=== PATIENT | female | born 1975 | race Caucasian/White ===

== ENCOUNTER → 2016-08-22 | Outpatient (REF) | payer BC ==
[~2016-08-22] MED LIST: CIPR500T89 PO; D 10CAP PO; EFFE25TA8 PO; FLAG500T PO; HYDR12.55 PO; OXYC1TAB23 PO; PENT500C PO; PROBCAP18 PO; VITA10002 PO
[2016-08-22 18:52] LABS: ALBUMIN 3.2 GM/DL (3.2-5.2); ALBUMIN/GLOBULIN RATIO 0.82 (1.00-1.93); ALKALINE PHOSPHATASE 70 U/L (45-117); ALT/SGPT 19 U/L (12-78); ANION GAP 10 MEQ/L (8-16); AST/SGOT 13 U/L (15-37); BILIRUBIN,TOTAL 0.2 MG/DL (0.2-1.0); BLOOD UREA NITROGEN 8 MG/DL (7-18); CARBON DIOXIDE LEVEL 24 MEQ/L (21-32); CHLORIDE LEVEL 106 MEQ/L (98-107); GLOMERULAR FILTRATION RATE > 60.0 (>58); GLUCOSE, FASTING 82 MG/DL (70-105); POTASSIUM SERUM 4.4 MEQ/L (3.5-5.1); SODIUM LEVEL 140 MEQ/L (136-145); TOTAL PROTEIN 7.1 GM/DL (6.4-8.2)
[2016-08-22 19:49] LABS: VITAMIN B12 LEVEL 250 PG/ML (247-911)
== END ==
LOC: M LAB REF 16:42
PROVIDERS: ATTEND Internal Medicine Gastroenterology
DX: K50.00 Crohn's disease of small intestine without complications (principal); K60.3 Anal fistula; R19.7 Diarrhea, unspecified

== ENCOUNTER → 2016-08-22 | Outpatient (REF) | payer BC ==
[2016-08-22 18:04] LABS: BASO # 0.1 K/mm3 (0.0-0.2); BASO % 0.8 % (0.0-1.0); EOS # 0.1 K/mm3 (0.0-0.50); LARGE UNSTAINED CELL # 0.1 K/mm3 (0.0-0.4); LARGE UNSTAINED CELL % 0.9 % (0.0-4.0); LYMPH # 2.5 K/mm3 (1.5-4.5); LYMPH % 21.8 % (24.0-44.0); MEAN CORPUSCULAR HEMOGLOBIN 26.1 pg (27.0-33.0); MEAN CORPUSCULAR HGB CONC 32.4 g/dl (32.0-36.5); MEAN CORPUSCULAR VOLUME 80.7 fl (80.0-96.0); MONO # 0.4 K/mm3 (0.0-0.8); MONO % 3.9 % (0.0-5.0); NEUTROPHILS # 7.9 K/mm3 (1.8-7.7); NEUTROPHILS % 71.7 % (36.0-66.0); PLATELET COUNT, AUTOMATED 430 k/mm3 (150-450); RED CELL DISTRIBUTION WIDTH 15.1 % (11.5-14.5)
[2016-08-22 18:53] LABS: ALBUMIN 3.2 GM/DL (3.2-5.2); ALBUMIN/GLOBULIN RATIO 0.76 (1.00-1.93); ALKALINE PHOSPHATASE 69 U/L (45-117); ALT/SGPT 20 U/L (12-78); ANION GAP 10 MEQ/L (8-16); AST/SGOT 13 U/L (15-37); BILIRUBIN,TOTAL 0.2 MG/DL (0.2-1.0); BLOOD UREA NITROGEN 8 MG/DL (7-18); CALCIUM LEVEL 8.8 MG/DL (8.5-10.1); CARBON DIOXIDE LEVEL 24 MEQ/L (21-32); CHLORIDE LEVEL 106 MEQ/L (98-107); CREATININE FOR GFR 0.63 MG/DL (0.55-1.02); GLOMERULAR FILTRATION RATE > 60.0 (>58); GLUCOSE, FASTING 82 MG/DL (70-105); POTASSIUM SERUM 4.3 MEQ/L (3.5-5.1); SODIUM LEVEL 140 MEQ/L (136-145); TOTAL PROTEIN 7.4 GM/DL (6.4-8.2)
== END ==
LOC: M LAB REF 16:58
PROVIDERS: ATTEND Internal Medicine Infectious Disease
DX: K50.813 Crohn's disease of both small and large intestine with fistula (principal); L02.31 Cutaneous abscess of buttock

== ENCOUNTER → 2016-10-05 | Outpatient (REF) | payer BC | LOC: M LAB REF 13:42 | PROVIDERS: ATTEND Internal Medicine Pulmonary Disease | DX: K50.813 Crohn's disease of both small and large intestine with fistula (principal); R19.7 Diarrhea, unspecified ==

== ENCOUNTER → 2017-01-26 | Outpatient (REF) | payer BC ==
[2017-01-26 18:23] LABS: MEAN CORPUSCULAR HEMOGLOBIN 27.3 pg (27.0-33.0); MEAN CORPUSCULAR HGB CONC 33.2 g/dl (32.0-36.5); MEAN CORPUSCULAR VOLUME 82.1 fl (80.0-96.0); RED CELL DISTRIBUTION WIDTH 14.6 % (11.5-14.5); WHITE BLOOD COUNT 10.5 K/mm3 (4.0-10.0)
[2017-01-26 18:59] LABS: ALBUMIN 3.3 GM/DL (3.2-5.2); ALBUMIN/GLOBULIN RATIO 0.79 (1.00-1.93); ALKALINE PHOSPHATASE 62 U/L (45-117); ALT/SGPT 26 U/L (12-78); ANION GAP 9 MEQ/L (8-16); AST/SGOT 15 U/L (15-37); BILIRUBIN,TOTAL 0.3 MG/DL (0.2-1.0); BLOOD UREA NITROGEN 7 MG/DL (7-18); CARBON DIOXIDE LEVEL 27 MEQ/L (21-32); CHLORIDE LEVEL 106 MEQ/L (98-107); CREATININE FOR GFR 0.57 MG/DL (0.55-1.02); GLOMERULAR FILTRATION RATE > 60.0 (>58); GLUCOSE, FASTING 95 MG/DL (70-105); POTASSIUM SERUM 4.3 MEQ/L (3.5-5.1); SODIUM LEVEL 142 MEQ/L (136-145); TOTAL PROTEIN 7.5 GM/DL (6.4-8.2)
[2017-01-26 19:22] LABS: VITAMIN B12 LEVEL 258 PG/ML (247-911)
== END ==
LOC: M LAB REF 17:12
PROVIDERS: ATTEND Internal Medicine Gastroenterology
DX: K50.00 Crohn's disease of small intestine without complications (principal); C44.590 Other specified malignant neoplasm of anal skin; Z80.0 Family history of malignant neoplasm of digestive organs; E55.9 Vitamin D deficiency, unspecified

== ENCOUNTER → 2017-05-05 | Outpatient (REF) | payer BC ==
[~2017-05-05] MED LIST changes: +CIPR-249 PO; -CIPR500T89 PO
[2017-05-08 10:47] LABS: FOLATE 11.9 NG/ML
== END ==
LOC: M LAB REF 16:18
PROVIDERS: ATTEND Internal Medicine
DX: D51.9 Vitamin B12 deficiency anemia, unspecified (principal)

== ENCOUNTER → 2017-10-06 | Outpatient (REF) | payer BC | LOC: M SFHCPLAZ 10:19 | DX: R19.7 Diarrhea, unspecified (principal) ==

== ENCOUNTER → 2017-10-06 | Outpatient (REF) | payer BC ==
[2017-10-06 15:40] LABS: BASO % 0.2 % (0.0-1.0); EOS # 0.1 10^3/uL (0.0-0.50); EOS % 0.9 % (0.0-3.0); HEMATOCRIT 37.9 % (36.0-47.0); HEMOGLOBIN 12.2 g/dl (12.0-16.0); IMMATURE GRANULOCYTE % 0.4 % (0-3.0); LYMPH # 3.1 10^3/uL (1.5-4.5); LYMPH % 30.6 % (24.0-44.0); MEAN CORPUSCULAR HEMOGLOBIN 26.9 pg (27.0-33.0); MEAN CORPUSCULAR HGB CONC 32.2 g/dl (32.0-36.5); MEAN CORPUSCULAR VOLUME 83.7 fl (80.0-96.0); MONO # 0.5 10^3/uL (0.0-0.8); NEUTROPHILS # 6.5 10^3/uL (1.8-7.7); NEUTROPHILS % 62.9 % (36.0-66.0); PLATELET COUNT, AUTOMATED 410 10^3/uL (150-450); RED BLOOD COUNT 4.53 10^6/uL (4.00-5.40); RED CELL DISTRIBUTION WIDTH 14.3 % (11.5-14.5); WHITE BLOOD COUNT 10.2 10^3/uL (4.0-10.0)
[2017-10-06 16:24] LABS: ALBUMIN 3.4 GM/DL (3.2-5.2); ALBUMIN/GLOBULIN RATIO 0.83 (1.00-1.93); ALKALINE PHOSPHATASE 59 U/L (45-117); ALT/SGPT 23 U/L (12-78); ANION GAP 9 MEQ/L (8-16); AST/SGOT 21 U/L (7-37); BILIRUBIN,TOTAL 0.2 MG/DL (0.2-1.0); BLOOD UREA NITROGEN 6 MG/DL (7-18); CALCIUM LEVEL 8.5 MG/DL (8.5-10.1); CARBON DIOXIDE LEVEL 24 MEQ/L (21-32); CHLORIDE LEVEL 109 MEQ/L (98-107); CREATININE FOR GFR 0.56 MG/DL (0.55-1.30); GLOMERULAR FILTRATION RATE > 60.0 (>58); GLUCOSE, FASTING 90 MG/DL (70-100); MAGNESIUM LEVEL 1.7 MG/DL (1.8-2.4); POTASSIUM SERUM 3.8 MEQ/L (3.5-5.1); SODIUM LEVEL 142 MEQ/L (136-145); TOTAL PROTEIN 7.5 GM/DL (6.4-8.2)
== END ==
LOC: M LAB REF 15:19
DX: A04.72 Enterocolitis due to Clostridium difficile, not specified as recurrent (principal)
CPT/HCPCS: 83735

== ENCOUNTER 2017-10-25 15:48 | Emergency (ER) | payer BC ==
[2017-10-25 16:42] LABS: BASO % 0.4 % (0.0-1.0); EOS # 0.1 10^3/uL (0.0-0.50); EOS % 0.8 % (0.0-3.0); HEMOGLOBIN 11.9 g/dl (12.0-16.0); IMMATURE GRANULOCYTE % 0.5 % (0-3.0); LYMPH % 28.7 % (24.0-44.0); MEAN CORPUSCULAR HEMOGLOBIN 26.9 pg (27.0-33.0); MEAN CORPUSCULAR HGB CONC 32.2 g/dl (32.0-36.5); MEAN CORPUSCULAR VOLUME 83.5 fl (80.0-96.0); MONO # 0.6 10^3/uL (0.0-0.8); MONO % 5.9 % (0.0-5.0); NEUTROPHILS # 6.7 10^3/uL (1.8-7.7); NEUTROPHILS % 63.7 % (36.0-66.0); PLATELET COUNT, AUTOMATED 379 10^3/uL (150-450); RED BLOOD COUNT 4.43 10^6/uL (4.00-5.40); WHITE BLOOD COUNT 10.5 10^3/uL (4.0-10.0)
[2017-10-25] MEDS: KETOROLAC 30 MG/ML VIAL (J1885) IV (16:43)
[2017-10-25] MEDS: NS 1,000 ML IV (16:43)
[2017-10-25] MEDS: GASTROGRAFIN SOLUTION 30ML (Q9963) PO ×2 (16:49→17:22)
[2017-10-25 17:05] LABS: ALBUMIN 3.4 GM/DL (3.2-5.2); ALBUMIN/GLOBULIN RATIO 0.81 (1.00-1.93); ALKALINE PHOSPHATASE 63 U/L (45-117); ALT/SGPT 28 U/L (12-78); ANION GAP 10 MEQ/L (8-16); AST/SGOT 20 U/L (7-37); BILIRUBIN,DIRECT < 0.1 MG/DL (0.0-0.2); BILIRUBIN,TOTAL 0.3 MG/DL (0.2-1.0); BLOOD UREA NITROGEN 7 MG/DL (7-18); CALCIUM LEVEL 8.6 MG/DL (8.5-10.1); CARBON DIOXIDE LEVEL 23 MEQ/L (21-32); CHLORIDE LEVEL 107 MEQ/L (98-107); CREATININE FOR GFR 0.54 MG/DL (0.55-1.30); GLOMERULAR FILTRATION RATE > 60.0 (>58); GLUCOSE, FASTING 95 MG/DL (70-100); LIPASE 256 U/L (73-393); POTASSIUM SERUM 3.7 MEQ/L (3.5-5.1); SODIUM LEVEL 140 MEQ/L (136-145); TOTAL PROTEIN 7.6 GM/DL (6.4-8.2)
[2017-10-25 17:14] LABS: LACTIC ACID SEPSIS PROTOCOL 2.3 MMOL/L (0.4-2.0)
[2017-10-25] MEDS ORDERED: ISOVUE-370 76% 100ML VIAL (Q9967) As Ordered (17:30)
== END 2017-10-25 18:56 | disposition home or self-care (01) ==
LOC: M ED 15:48
DX: K50.90 Crohn's disease, unspecified, without complications (principal); R11.0 Nausea; Z86.19 Personal history of other infectious and parasitic diseases; Z90.49 Acquired absence of other specified parts of digestive tract; Z88.8 Allergy status to other drugs, medicaments and biological substances; Z79.899 Other long term (current) drug therapy
CPT/HCPCS: Q9963

== ENCOUNTER 2018-02-01 07:04 | Emergency (ER) | payer BC ==
[2018-02-01] MEDS: NS 1,000 ML IV ×2 (07:38→08:30)
[2018-02-01 08:10] LABS: ALBUMIN 3.1 GM/DL (3.2-5.2); ALBUMIN/GLOBULIN RATIO 0.67 (1.00-1.93); ALKALINE PHOSPHATASE 60 U/L (45-117); ALT/SGPT 34 U/L (12-78); ANION GAP 12 MEQ/L (8-16); AST/SGOT 28 U/L (7-37); BILIRUBIN,TOTAL 0.2 MG/DL (0.2-1.0); BLOOD UREA NITROGEN 11 MG/DL (7-18); CALCIUM LEVEL 8.4 MG/DL (8.5-10.1); CARBON DIOXIDE LEVEL 23 MEQ/L (21-32); CHLORIDE LEVEL 105 MEQ/L (98-107); CPK CREATINE PHOSPHOKINASE 117 U/L (26-192); CREATININE FOR GFR 0.64 MG/DL (0.55-1.30); GLOMERULAR FILTRATION RATE > 60.0 (>58); GLUCOSE, FASTING 110 MG/DL (70-100); MAGNESIUM LEVEL 1.8 MG/DL (1.8-2.4); SODIUM LEVEL 140 MEQ/L (136-145); TOTAL PROTEIN 7.7 GM/DL (6.4-8.2)
[2018-02-01 08:20] LABS: HEMATOCRIT 38.8 % (36.0-47.0); HEMOGLOBIN 12.4 g/dl (12.0-15.5); MEAN CORPUSCULAR HEMOGLOBIN 26.6 pg (27.0-33.0); MEAN CORPUSCULAR VOLUME 83.1 fl (80.0-96.0); PLATELET COUNT, AUTOMATED 380 10^3/uL (150-450); RED BLOOD COUNT 4.67 10^6/uL (4.00-5.40); RED CELL DISTRIBUTION WIDTH 14.3 % (11.5-14.5); WHITE BLOOD COUNT 9.5 10^3/uL (4.0-10.0)
== END 2018-02-01 09:55 | disposition home or self-care (01) ==
LOC: M ED 07:04
DX: M62.838 Other muscle spasm (principal); R19.7 Diarrhea, unspecified; K50.919 Crohn's disease, unspecified, with unspecified complications; Z90.49 Acquired absence of other specified parts of digestive tract; Z79.899 Other long term (current) drug therapy; Z88.8 Allergy status to other drugs, medicaments and biological substances
CPT/HCPCS: 82550

== ENCOUNTER → 2018-08-21 | Outpatient (REF) | payer BC ==
[~2018-08-21] MED LIST changes: +CIMZ200K IM
[2018-08-21 18:06] LABS: HEMATOCRIT 38.3 % (36.0-47.0); HEMOGLOBIN 12.1 g/dl (12.0-15.5); MEAN CORPUSCULAR HEMOGLOBIN 26.1 pg (27.0-33.0); MEAN CORPUSCULAR HGB CONC 31.6 g/dl (32.0-36.5); MEAN CORPUSCULAR VOLUME 82.7 fl (80.0-96.0); PLATELET COUNT, AUTOMATED 433 10^3/uL (150-450); RED BLOOD COUNT 4.63 10^6/uL (4.00-5.40); WHITE BLOOD COUNT 9.6 10^3/uL (4.0-10.0)
[2018-08-21 18:29] LABS: ALBUMIN 3.2 GM/DL (3.2-5.2); ALT/SGPT 28 U/L (12-78); BILIRUBIN,TOTAL 0.3 MG/DL (0.2-1.0); BLOOD UREA NITROGEN 8 MG/DL (7-18); CALCIUM LEVEL 8.7 MG/DL (8.5-10.1); CARBON DIOXIDE LEVEL 23 MEQ/L (21-32); CHLORIDE LEVEL 107 MEQ/L (98-107); CREATININE FOR GFR 0.54 MG/DL (0.55-1.30); GLOMERULAR FILTRATION RATE > 60.0 (>58); GLUCOSE, FASTING 93 MG/DL (70-100); MAGNESIUM LEVEL 1.7 MG/DL (1.8-2.4); POTASSIUM SERUM 4.3 MEQ/L (3.5-5.1); SODIUM LEVEL 140 MEQ/L (136-145); TOTAL PROTEIN 7.3 GM/DL (6.4-8.2)
[2018-08-21 18:38] LABS: TOTAL 25(OH) VITAMIN D 16.6 NG/ML (30.0-100.0); VITAMIN B12 LEVEL 254 PG/ML (247-911)
== END ==
LOC: M LAB REF 17:01
PROVIDERS: ATTEND Internal Medicine Gastroenterology
DX: K50.00 Crohn's disease of small intestine without complications (principal); R10.84 Generalized abdominal pain; R19.7 Diarrhea, unspecified; K60.3 Anal fistula

== ENCOUNTER 2018-10-11 11:54 | Inpatient (IN) | payer BC ==
[~2018-10-11] VITALS: Ht 170.2 cm; Wt 137.7 kg
[2018-10-11] MEDS ORDERED: ISOVUE-370 76% 100ML VIAL (Q9967) As Ordered ONE (12:11)
[2018-10-11] MEDS ORDERED: NS 1,000 ML IV ONE (12:15)
[2018-10-11 12:27] LABS: BASO # 0.1 10^3/uL (0.0-0.2); BASO % 0.3 % (0.0-1.0); EOS # 0.1 10^3/uL (0.0-0.50); EOS % 0.6 % (0.0-3.0); HEMATOCRIT 43.7 % (36.0-47.0); HEMOGLOBIN 13.6 g/dl (12.0-15.5); LYMPH # 3.4 10^3/uL (1.5-4.5); LYMPH % 21.9 % (24.0-44.0); MEAN CORPUSCULAR HEMOGLOBIN 25.9 pg (27.0-33.0); MEAN CORPUSCULAR HGB CONC 31.1 g/dl (32.0-36.5); MEAN CORPUSCULAR VOLUME 83.2 fl (80.0-96.0); MONO # 0.8 10^3/uL (0.0-0.8); MONO % 4.9 % (0.0-5.0); NEUTROPHILS # 11.2 10^3/uL (1.8-7.7); NEUTROPHILS % 71.9 % (36.0-66.0); PLATELET COUNT, AUTOMATED 418 10^3/uL (150-450); RED BLOOD COUNT 5.25 10^6/uL (4.00-5.40); WHITE BLOOD COUNT 15.6 10^3/uL (4.0-10.0)
[2018-10-11] MEDS: MORPHINE 2 MG/ML 1ML SYRINGE (J2270) IV PRN ×2 (12:28→13:16)
[2018-10-11] MEDS ORDERED: ONDANSETRON 4MG/2ML VIAL (J2405) IV ONE (12:30)
[2018-10-11 12:51] LABS: ALBUMIN 3.4 GM/DL (3.2-5.2); ALT/SGPT 23 U/L (12-78); BILIRUBIN,DIRECT 0.1 MG/DL (0.0-0.2); BILIRUBIN,TOTAL 0.4 MG/DL (0.2-1.0); BLOOD UREA NITROGEN 10 MG/DL (7-18); CALCIUM LEVEL 9.3 MG/DL (8.5-10.1); CARBON DIOXIDE LEVEL 28 MEQ/L (21-32); CHLORIDE LEVEL 100 MEQ/L (98-107); CREATININE FOR GFR 0.72 MG/DL (0.55-1.30); GLOMERULAR FILTRATION RATE > 60.0 (>58); GLUCOSE, FASTING 103 MG/DL (70-100); LIPASE 212 U/L (73-393); POTASSIUM SERUM 3.8 MEQ/L (3.5-5.1); SODIUM LEVEL 137 MEQ/L (136-145); TOTAL PROTEIN 8.7 GM/DL (6.4-8.2)
--- NOTE | 2018-10-11 13:42 | REP ---
CT ABDOMEN AND PELVIS WITH IV CONTRAST: TECHNIQUE: Axial contrast enhanced images from the lung bases to the pubic symphysis using 100 mL Isovue 370 intravenous contrast material with multiplanar reformations. COMPARISON: 10/25/2017 Visualized lung bases demonstrate no evidence of acute infiltrate. The liver demonstrates no mass. The spleen, adrenals, pancreas and kidneys are unremarkable. The patient has had a prior cholecystectomy. There is no biliary dilatation. There is no abdominal aortic aneurysm. No significant adenopathy is seen. There is no free air or free fluid. However, there is thickening of the distal end of the ileum, which has increased since prior study of 10/25/2017. There is also increased surrounding inflammatory change in the mesenteric fat. There is moderate dilatation of distal loops of ileum. Findings are most compatible with a high-grade partial obstruction at the distal end of the ileum. Small amount of material is seen throughout a relatively nondistended colon. In the pelvis, a right ovarian cyst measures about 3 cm in diameter. A cyst in the region of the cervix is unchanged. Urinary bladder is unremarkable. IMPRESSION: Increased thickening of the distal end of the ileum with increased inflammatory changes in the surrounding fat. Moderate dilatation of the distal ileum. Findings suggest high-grade partial obstruction at the distal end of the ileum, at its junction with the right colon. No free air, free fluid or abscess. Electronically Signed by Shemar Oseguera MD 10/11/2018 05:11 P
[2018-10-11] MEDS ORDERED: CEPACOL LOZENGE PO PRN (13:45)
[2018-10-11] MEDS ORDERED: CHLORASEPTIC SPRAY MT PRN (14:15)
[2018-10-11] MEDS ORDERED: MORPHINE 2 MG/ML 1ML SYRINGE (J2270) IV PRN (14:30)
[2018-10-11] MEDS ORDERED: BUDE3CAP PO (14:41)
[2018-10-11] MEDS ORDERED: CHLO125TA PO (14:41)
[2018-10-11] MEDS ORDERED: ONDANSETRON 4MG/2ML VIAL (J2405) IV PRN (17:45)
[2018-10-11] MEDS ORDERED: MORPHINE 4 MG/ML 1ML VIAL/SYRINGE (J2270) IV PRN ×2 (17:45)
[2018-10-11] MEDS ORDERED: HYDROCORTISONE 100 MG/2 ML VIAL (J1720) IV ONE (17:45)
[2018-10-11 18:00] VITALS: BP 162/88
[2018-10-11] MEDS: LR 1,000 ML IV SCH (18:06)
[2018-10-11 22:00] VITALS: BP 168/88
--- NOTE | 2018-10-11 22:30 | HPE ---
DATE OF ADMISSION: 10/11/2018 ADMISSION DIAGNOSIS Small bowel obstruction secondary to Crohn's exacerbation. 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 The patient has a history of Crohn disease dating back many years. She did have a terminal ileal resection back in 2002. She has for quite some time remained on anti TNF medications. She has had recurring problems with perirectal fistulas and reports that even now she has a seton suture in the perineum. She remains on Cimzia which is certolizumab pegol intradermally every 3 weeks. Her last dose was about 10 days ago. She reports that she has been eating okay. She has tried to change her diet a little bit to assist with weight loss and has been taking some slightly more high-fiber foods. Over the last day or two she has noticed a little bit of right lower quadrant discomfort. This is often accompanied with a slight bloated sensation. This morning, she has noticed the onset of severe pain in the right lower quadrant with sensation of significant distension. She did not have any nausea or vomiting. She presented to the emergency department and underwent a CT scan of the abdomen and pelvis. This revealed some mildly dilated distal small bowel with an evident ileocolonic anastomosis in the right lower quadrant. There was some definite thickening of the terminal ileum just proximal to the anastomosis with some angulation in this area. Her symptoms and findings were felt to be consistent with an intestinal obstruction secondary to an exacerbation of her Crohn disease. A nasogastric tube was placed in the emergency department and I was consulted. She is now admitted for management. She does report that her discomfort does seem to have diminished somewhat, although she has received some analgesics in the emergency department. ALLERGIES: The patient reports that CARBAMAZEPINE leads to a rash. CURRENT MEDICATIONS: Include - certolizumab 400 mg injected every 3 weeks - she uses budesonide 3 mg capsules by mouth as needed and her last medicine was probably last week. - she takes chlorthalidone 12.5 mg as needed for edema. PAST SURGICAL HISTORY The patient has undergone several surgical procedures under general anesthesia for perirectal fistulas in the last 2 years. Back in 2002 she had undergone a bowel resection with an ileocolonic anastomosis. She has had her appendix removed. She did have a laparoscopic cholecystectomy at age 18. PAST MEDICAL HISTORY: Primarily significant for her Crohn disease. She does have a history of obesity. She has some borderline sleep apnea for which she does use a C-PAP device intermittently. She also has had multiple episodes of renal stones. She reports having had one episode of Clostridium difficile colitis some years ago when she was on immunosuppressive therapies. FAMILY HISTORY: Noncontributory. SOCIAL HISTORY The patient is a nonsmoker. She is . 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 She is accompanied to the emergency department by her spouse. Her primary physician is Dr. Josias Perez and her field artillery crewmember is Dr. Ayla Tucker in [place]. REVIEW OF SYSTEMS The patient denies any heart or significant lung problems. She has no history of diabetes or thyroid disease. There are no bone or joint issues. She has no history of DVT or pulmonary embolus. Her other history is largely as noted in the history of present illness. PHYSICAL EXAMINATION The patient is a very pleasant alert woman lying quietly on the ER stretcher. She has a nasogastric tube in place. Sclerae are anicteric. Skin: Is warm and dry. Mucous membranes are moist. Neck is supple. Heart: Exam shows a regular rate and rhythm. The lungs are clear bilaterally. The abdomen is obese. She has a midline scar beginning slightly above the umbilicus and extending approximately 18-20 cm. The abdomen is fairly quiet, but there are a few faint bowel sounds here and there. On percussion there is no tympany to percussion. There is some mild tenderness to percussion in the right lower quadrant. On palpation, again there is some mild direct tenderness in the right lower quadrant. No masses appreciated and there was no guarding or rebound. No hernias are evident. She has palpable dorsalis pedis pulses with no peripheral edema. She has palpable radial pulses. LABORATORY STUDIES Show a white count of 16,000 with a hemoglobin of 14, hematocrit of 44 and platelet count of 418,000. Differential count shows 72% neutrophils, 22% lymphocytes and 5% monocytes. Chemistry profile shows normal electrolytes with a BUN of 10, creatinine 0.7 and a glucose 103. Her lactic acid was 2.0. Liver function tests are normal. Her lipase is 212. Abdominal CT scan images I reviewed personally and reviewed the radiologist report. IMPRESSION 1. Small intestinal obstruction secondary to Crohn disease exacerbation. 2. Obesity. 3. Sleep apnea. 4. History of perirectal fistulas. 5. History of multiple renal stones. PLAN: The patient reports that she is feeling somewhat better. She has not had any return of bowel function with flatus or bowel movement since arriving at the emergency department. The patient will continue with the nasogastric tube to low intermittent suction for now. We will continue with some maintenance IV fluid of Ringer's lactate at 100 cc/hour. I will start her on some hydrocortisone 50 mg IV every 8 hours. We will not start antibiotics at this time. She will be provided with analgesics as necessary and orders were written for morphine as needed. She will be allowed a few ice chips as necessary just for comfort. She will be encouraged to be up out of bed. Hopefully she will respond readily with resolution of her intestinal obstruction and she can then reconnect with Dr. Cristobal of gastroenterology for further recommendations. She certainly does not seem to require any sort of urgent surgical intervention at this time.
[2018-10-12] MEDS: HYDROCORTISONE 100 MG/2 ML VIAL (J1720) IV SCH ×2 (01:17→10:39)
[2018-10-12 02:00] VITALS: BP 145/82
[2018-10-12] MEDS: LR 1,000 ML IV SCH (03:31)
[2018-10-12 06:00] VITALS: BP 116/66
[2018-10-12 10:00] VITALS: BP 137/88
== END 2018-10-12 11:38 | disposition home or self-care (01) | DRG 245 ==
LOC: M ED 11:54 → M ED INP 17:31 → M MS5PR 18:35
PROVIDERS: ADMIT Surgery; ATTEND Surgery
DX: K50.012 Crohn's disease of small intestine with intestinal obstruction (principal); Z68.42 Body mass index [BMI] 45.0-49.9, adult; E66.9 Obesity, unspecified; Z88.8 Allergy status to other drugs, medicaments and biological substances; G47.30 Sleep apnea, unspecified

== ENCOUNTER → 2019-02-18 | Outpatient (REF) | payer BC ==
[~2019-02-18] MED LIST changes: +BUDE3CAP PO; +CHLO125TA PO; +CYAN100049 PO; -VITA10002 PO
[2019-02-18 13:34] LABS: HEMATOCRIT 38.6 % (36.0-47.0); HEMOGLOBIN 11.5 g/dl (12.0-15.5); MEAN CORPUSCULAR HEMOGLOBIN 26.6 pg (27.0-33.0); MEAN CORPUSCULAR HGB CONC 29.8 g/dl (32.0-36.5); MEAN CORPUSCULAR VOLUME 89.4 fl (80.0-96.0); PLATELET COUNT, AUTOMATED 452 10^3/uL (150-450); RED BLOOD COUNT 4.32 10^6/uL (4.00-5.40); WHITE BLOOD COUNT 12.1 10^3/uL (4.0-10.0)
[2019-02-18 14:00] LABS: ALBUMIN 3.3 GM/DL (3.2-5.2); ALT/SGPT 29 U/L (12-78); BILIRUBIN,DIRECT < 0.1 MG/DL (0.0-0.2); BILIRUBIN,TOTAL 0.5 MG/DL (0.2-1.0); TOTAL PROTEIN 7.5 GM/DL (6.4-8.2)
== END ==
LOC: M LAB REF 12:48
PROVIDERS: ATTEND Internal Medicine Gastroenterology
DX: K50.00 Crohn's disease of small intestine without complications (principal); K56.699 Other intestinal obstruction unspecified as to partial versus complete obstruction; R10.84 Generalized abdominal pain; R19.7 Diarrhea, unspecified; Z80.0 Family history of malignant neoplasm of digestive organs

== ENCOUNTER 2019-03-21 17:13 | Emergency (ER) | payer BC ==
[~2019-03-21] VITALS: Ht 167.6 cm; Wt 137.3 kg
[2019-03-21] MEDS ORDERED: NS 1,000 ML IV SCH (17:18)
[2019-03-21] MEDS ORDERED: ONDANSETRON 4MG/2ML VIAL (J2405) IV ONE (17:30)
[2019-03-21] MEDS ORDERED: ISOVUE-370 76% 100ML VIAL (Q9967) As Ordered ONE (17:41)
[2019-03-21 17:42] LABS: BASO % 0.1 % (0.0-1.0); EOS # 0.1 10^3/uL (0.0-0.50); EOS % 0.8 % (0.0-3.0); HEMOGLOBIN 12.9 g/dl (12.0-15.5); LYMPH # 2.4 10^3/uL (1.5-4.5); LYMPH % 30.6 % (24.0-44.0); MEAN CORPUSCULAR HEMOGLOBIN 29.6 pg (27.0-33.0); MEAN CORPUSCULAR HGB CONC 31.5 g/dl (32.0-36.5); MONO # 0.4 10^3/uL (0.0-0.8); MONO % 5.2 % (0.0-5.0); NEUTROPHILS % 62.9 % (36.0-66.0); PLATELET COUNT, AUTOMATED 356 10^3/uL (150-450); RED BLOOD COUNT 4.36 10^6/uL (4.00-5.40); WHITE BLOOD COUNT 7.9 10^3/uL (4.0-10.0)
[2019-03-21] MEDS: MORPHINE 4 MG/ML 1ML VIAL/SYRINGE (J2270) IV PRN ×2 (17:52→19:01)
[2019-03-21 18:17] LABS: ALBUMIN 3.3 GM/DL (3.2-5.2); ALT/SGPT 44 U/L (12-78); BILIRUBIN,DIRECT < 0.1 MG/DL (0.0-0.2); BILIRUBIN,TOTAL 1.1 MG/DL (0.2-1.0); BLOOD UREA NITROGEN 7 MG/DL (7-18); CALCIUM LEVEL 9.2 MG/DL (8.5-10.1); CARBON DIOXIDE LEVEL 26 MEQ/L (21-32); CHLORIDE LEVEL 107 MEQ/L (98-107); CREATININE FOR GFR 0.62 MG/DL (0.55-1.30); GLOMERULAR FILTRATION RATE > 60.0 (>58); GLUCOSE, FASTING 105 MG/DL (70-100); LIPASE 210 U/L (73-393); POTASSIUM SERUM 5.6 MEQ/L (3.5-5.1); SODIUM LEVEL 138 MEQ/L (136-145)
[2019-03-21] MEDS ORDERED: HYDROCORTISONE 100 MG/2 ML VIAL (J1720) IV ONE (19:15)
[2019-03-21] MEDS ORDERED: MERC50TA2 PO (19:28)
[2019-03-21] MEDS ORDERED: VITA500045 PO (19:28)
[2019-03-21] MEDS ORDERED: PRED5TA PO (19:28)
--- NOTE | 2019-03-21 19:35 | REPVR ---
EXAM: CT Abdomen and Pelvis With Contrast EXAM DATE/TIME: 03/21/2019 5:25 PM CLINICAL HISTORY: 43 years old, female; Abdominal pain; Generalized; Additional info: Abd pain crohns ? obstruction TECHNIQUE: Imaging protocol: Axial computed tomography images of the abdomen and pelvis with intravenous contrast. Coronal and sagittal reformatted images were created and reviewed. Radiation optimization: All CT scans at this facility use at least one of these dose optimization techniques: automated exposure control; mA and/or kV adjustment per patient size (includes targeted exams where dose is matched to clinical indication); or iterative reconstruction. Contrast material: ISOVUE 370;Contrast volume: 100 ml;Contrast route: IV; COMPARISON: CT ABD/PEL W/IV CONTRAST ONLY 10/11/2018 12:40 PM FINDINGS: Liver: There is hypodense fatty infiltration of the liver. The liver measures 23.8 cm in length, consistent with hepatomegaly. Gallbladder and bile ducts: Surgical clips are identified within the gallbladder fossa, compatible with cholecystectomy. Pancreas: Unremarkable. No ductal dilation. Spleen: The spleen measures 12.6 cm in length, borderline for splenomegaly. No splenic mass. Adrenals: No mass. Kidneys and ureters: Unremarkable as visualized. No hydronephrosis. Stomach and bowel: Colonic diverticula are identified, without acute inflammatory stranding of the adjacent mesentery. Stable postoperative changes are identified at the ileocecal junction. There is significant wall thickening of the distal ileum with distension, concerning for obstruction. Stable stranding/fluid is seen within the adjacent fat, which is likely infectious, inflammatory, or ischemic. Appendix: The appendix is not visualized. Intraperitoneal space: No free air. Vasculature: No abdominal aortic aneurysm. Lymph nodes: Nonspecific mildly enlarged inguinal lymph nodes are identified. No significant retroperitoneal or intrapelvic lymphadenopathy. Bladder: Unremarkable as visualized. Reproductive: A stable cystic collection of fluid is again visualized at the level of the cervix, currently measuring 2.2 cm in diameter. There is mild endometrial thickening or fluid within the endometrial canal. There is a 2.3 cm hypodense right ovarian cyst, which has decreased in size. Bones/joints: Hypertrophic degenerative changes are noted within the spine. Right L5 spondylolysis again visualized. Soft tissues: There is a small paraumbilical herniation of fat. IMPRESSION: 1. Stable postoperative changes are identified at the ileocecal junction. There is significant wall thickening of the distal ileum with distension, concerning for obstruction. Stable stranding/fluid is seen within the adjacent fat, which is likely infectious, inflammatory, or ischemic. 2. There is hypodense fatty infiltration of the liver. Hepatomegaly. 3. Borderline splenomegaly. 4. A stable cystic collection of fluid is again visualized at the level of the cervix. There is mild endometrial thickening or fluid within the endometrial canal. These findings can be further evaluated with ultrasound. 5. Diverticulosis. 6. There is a 2.3 cm right ovarian cyst, which has decreased in size. 7. Additional findings described above. Electronically signed by: Stewart Fields On 03/21/2019 19:34:56 PM
[2019-03-21] MEDS ORDERED: MORPHINE 4 MG/ML 1ML VIAL/SYRINGE (J2270) IV PRN (20:45)
[2019-03-21 22:00] VITALS: BP 146/79
== END 2019-03-21 22:13 | disposition short-term general hospital (02) ==
LOC: M ED 17:13
DX: K50.90 Crohn's disease, unspecified, without complications (principal); Z79.52 Long term (current) use of systemic steroids; Z79.899 Other long term (current) drug therapy; Z86.19 Personal history of other infectious and parasitic diseases; Z88.8 Allergy status to other drugs, medicaments and biological substances
CPT/HCPCS: 74177; 80047; 80048; 80076; 83690; 85025; 93041; 96361; 96374; 96375; 99285; J1720; J2270; J2405; Q9967

== ENCOUNTER → 2019-04-02 | Outpatient (CLI) | payer BC ==
[~2019-04-02] MED LIST changes: +MERC50TA2 PO; +PRED5TA PO; +VITA500045 PO
--- NOTE | 2019-04-02 20:36 | REP ---
CHEST, PA AND LATERAL: 04/02/2019. Clinical history: Crohn disease. Abdominal pain. Findings: Two-views show the lungs adequately inflated. The CP angles sharply defined. There is no effusion or blunting of CP angles. Heart is not enlarged. There is no vascular redistribution or edema. No dense consolidation or parenchymal mass. The aorta is mildly tortuous. There is very mild dextroconvex mid thoracic spine, levoconvex upper lumbar spine appearance of the spine. No compression deformity, destructive lesion. No free air. Right upper quadrant surgical clips from prior cholecystectomy. Impression: 1. No acute cardiopulmonary change. Electronically Signed by Tito Shell MD 04/03/2019 07:58 A
== END ==
LOC: M SMT 10:27
PROVIDERS: ATTEND Internal Medicine Gastroenterology
DX: K50.00 Crohn's disease of small intestine without complications (principal); R10.84 Generalized abdominal pain; Z80.0 Family history of malignant neoplasm of digestive organs

== ENCOUNTER → 2019-04-12 | Outpatient (REF) | payer BC ==
[2019-04-12 13:30] LABS: URINE PREG TEST NEGATIVE (NEGATIVE)
[2019-04-12 13:54] LABS: HEMATOCRIT 41.8 % (36.0-47.0); HEMOGLOBIN 13.1 g/dl (12.0-15.5); MEAN CORPUSCULAR HEMOGLOBIN 29.6 pg (27.0-33.0); MEAN CORPUSCULAR HGB CONC 31.3 g/dl (32.0-36.5); MEAN CORPUSCULAR VOLUME 94.4 fl (80.0-96.0); PLATELET COUNT, AUTOMATED 339 10^3/uL (150-450); RED BLOOD COUNT 4.43 10^6/uL (4.00-5.40); WHITE BLOOD COUNT 7.6 10^3/uL (4.0-10.0)
[2019-04-12 14:10] LABS: ALT/SGPT 59 U/L (12-78); BILIRUBIN,TOTAL 0.7 MG/DL (0.2-1.0); BLOOD UREA NITROGEN 12 MG/DL (7-18); C REACTIVE PROTEIN QUANTITATIV < 0.30 MG/DL (0.00-0.30); CALCIUM LEVEL 8.7 MG/DL (8.5-10.1); CARBON DIOXIDE LEVEL 27 MEQ/L (21-32); CHLORIDE LEVEL 105 MEQ/L (98-107); CREATININE FOR GFR 0.51 MG/DL (0.55-1.30); GLOMERULAR FILTRATION RATE > 60.0 (>58); GLUCOSE, FASTING 211 MG/DL (70-100); POTASSIUM SERUM 4.7 MEQ/L (3.5-5.1); SODIUM LEVEL 139 MEQ/L (136-145)
[2019-04-12 14:18] LABS: HEPATITIS B SURFACE ANTIBODY NEGATIVE (POSITIVE)
[2019-04-12 14:29] LABS: HEPATITIS B SURFACE ANTIGEN NEGATIVE (NEGATIVE)
[2019-04-12 14:58] LABS: HEPATITIS C VIRUS ABY INDEX 0.1 INDEX (<0.8)
== END ==
LOC: M LAB REF 13:01
PROVIDERS: ATTEND Internal Medicine Gastroenterology
DX: K50.00 Crohn's disease of small intestine without complications (principal); R10.84 Generalized abdominal pain; Z80.0 Family history of malignant neoplasm of digestive organs

== ENCOUNTER 2019-05-16 13:09 | Emergency (ER) | payer BC ==
[~2019-05-16] VITALS: Ht 167.6 cm; Wt 143.6 kg
[2019-05-16] MEDS ORDERED: NS 1,000 ML IV SCH (13:12)
[2019-05-16] MEDS ORDERED: STEL90IN SC (13:37)
[2019-05-16 13:51] LABS: BASO % 0.2 % (0.0-1.0); EOS % 0.2 % (0.0-3.0); HEMATOCRIT 40.1 % (36.0-47.0); LYMPH # 0.9 10^3/uL (1.5-5.0); LYMPH % 16.1 % (24.0-44.0); MEAN CORPUSCULAR HEMOGLOBIN 31.9 pg (27.0-33.0); MEAN CORPUSCULAR HGB CONC 32.4 g/dl (32.0-36.5); MEAN CORPUSCULAR VOLUME 98.5 fl (80.0-96.0); MONO # 0.2 10^3/uL (0.0-0.8); MONO % 3.4 % (0.0-5.0); NEUTROPHILS # 4.5 10^3/uL (1.5-8.5); NEUTROPHILS % 79.6 % (36.0-66.0); PLATELET COUNT, AUTOMATED 297 10^3/uL (150-450); RED BLOOD COUNT 4.07 10^6/uL (4.00-5.40); WHITE BLOOD COUNT 5.6 10^3/uL (4.0-10.0)
[2019-05-16 14:19] LABS: HCG, SERUM QUALITATIVE NEGATIVE (NEGATIVE)
[2019-05-16] MEDS: GASTROGRAFIN SOLUTION 30ML PO SCH ×2 (14:20→14:41)
[2019-05-16 14:22] LABS: ALT/SGPT 71 U/L (12-78); BILIRUBIN,DIRECT 0.3 MG/DL (0.0-0.2); BILIRUBIN,TOTAL 0.7 MG/DL (0.2-1.0); BLOOD UREA NITROGEN 8 MG/DL (7-18); CALCIUM LEVEL 9.1 MG/DL (8.5-10.1); CARBON DIOXIDE LEVEL 24 MEQ/L (21-32); CHLORIDE LEVEL 105 MEQ/L (98-107); CREATININE FOR GFR 0.68 MG/DL (0.55-1.30); GLOMERULAR FILTRATION RATE > 60.0 (>58); GLUCOSE, FASTING 279 MG/DL (70-100); LIPASE 376 U/L (73-393); POTASSIUM SERUM 4.2 MEQ/L (3.5-5.1); SODIUM LEVEL 139 MEQ/L (136-145); TOTAL PROTEIN 6.6 GM/DL (6.4-8.2)
[2019-05-16] MEDS ORDERED: ISOVUE-370 76% 100ML VIAL (Q9967) As Ordered ONE (15:00)
--- NOTE | 2019-05-16 15:43 | REP ---
CT of the abdomen pelvis with IV and oral contrast: Comparison is 03/21/2019. The patient has a history of Crohn disease and ileocecal resection. There is an anastomotic surgical staple ring in the proximal ascending colon compatible with the surgical history . The appendix is not identified. However, there is wall thickening and luminal narrowing of the terminal ileum, similar to the comparison study, compatible with the clinical history of Crohn disease. There is mild mesenteric inflammation adjacent to the thickened terminal ileum. There is no focal fluid collection to suggest abscess. There is an ileocolonic fistulous tract versus postsurgical scarring. There is no focal fluid collection to suggest abscess. There is no pneumoperitoneum or ascites. There is a right adnexal 18 mm follicle. There is a left adnexal 28 mm cyst. There is no free fluid in the pelvis. The uterus is unremarkable. There is a 2.3 cm cervical Nabothian cyst. This is unchanged. The visualized lung painting are unremarkable. The liver is hypodense compatible with hepato steatosis. This is unchanged. There are surgical clips in the gallbladder fossa. The pancreas, spleen, adrenals, kidneys and abdominal aorta are unremarkable. There is no retroperitoneal adenopathy or mass. There are no inflammatory changes or abscess in the mesentery. The pelvic bowel loops are unremarkable except for A large fecal bolus in the rectal ampulla, possibly an impaction. There are diverticula in the descending colon indicating diverticulosis. There is no diverticulitis. Impression: The the the The patient has known Crohn disease. There is wall thickening and luminal narrowing of the terminal ileum and mild mesenteric inflammation , consistent with Crohn disease. The the patient has had an ileocecal resection. There is no appendix. I suspect there is an ileocolonic fistulous tract versus postsurgical scarring. The there are no focal mesenteric fluid collections to suggest abscess. There is no ascites. No bowel distension or obstruction. There is descending colon diverticulosis without diverticulitis. There are bilateral adnexal follicles/cysts. There is a cervical Nabothian cyst. No hydronephrosis. Hepato steatosis. Cholecystectomy. Electronically Signed by Shemar Hutchins MD 05/16/2019 03:34 P
[2019-05-16 16:09] VITALS: BP 151/67
== END 2019-05-16 16:18 | disposition home or self-care (01) ==
LOC: M ED 13:09
DX: K50.919 Crohn's disease, unspecified, with unspecified complications (principal); R10.9 Unspecified abdominal pain; K60.3 Anal fistula; Z87.19 Personal history of other diseases of the digestive system; Z90.49 Acquired absence of other specified parts of digestive tract; G47.30 Sleep apnea, unspecified; K57.90 Diverticulosis of intestine, part unspecified, without perforation or abscess without bleeding; N83.8 Other noninflammatory disorders of ovary, fallopian tube and broad ligament; N88.8 Other specified noninflammatory disorders of cervix uteri; K76.0 Fatty (change of) liver, not elsewhere classified; Z79.899 Other long term (current) drug therapy; Z88.1 Allergy status to other antibiotic agents
CPT/HCPCS: 74177; 80048; 80076; 81001; 83690; 84703; 85025; 99284; Q9963; Q9967

== ENCOUNTER → 2019-06-03 | Outpatient (CLI) | payer BC ==
[~2019-06-03] MED LIST changes: +E-Z-PAQUE 96% w/w SUSP 176GM BTL As Ordered ONE; +STEL90IN SC
--- NOTE | 2019-06-03 16:23 | REP ---
Small bowel follow-through The procedure was performed under the direct supervision of Dr. Oseguera. The images were reviewed with Dr. Oseguera. The pile driver operator film shows no organomegaly or pathological masses. The intestinal gas pattern is nonspecific. There are bowel sutures noted in the right lower quadrant consistent with the patient's history of prior ileocolic anastomosis. Liquid barium was administered and the barium column was followed through the small bowel to the level of the terminal ileum. Small bowel transit time is approximately 95 minutes . During fluoroscopy gentle palpation shows all loops are freely movable and pliable. There are no fixed or angulated loops. The small bowel mucosal pattern is normal in course and caliber. There is no transition to suggest a partial small bowel obstruction. It was difficult to see the terminal ileum fill adequately even with compression and multiple different tube angles. At the terminal ileum there is mucosal thickening and luminal narrowing without obstruction. This is compatible with a findings on the prior CT scan dated 05/16/2019. Impression: It was difficult to see the terminal ileum fill adequately even with compression and multiple different tube angles. At the terminal ileum there is mucosal thickening and luminal narrowing without obstruction. This is compatible with findings on the prior CT scan dated 05/16/2019. 3.2 minutes of fluoro time was utilized for this procedure. Electronically Signed by AKBAR Cordero 06/03/2019 04:11 P Electronically Signed by Shemar Oseguera MD 06/03/2019 04:15 P
== END ==
LOC: M RAD 07:53
PROVIDERS: ATTEND Internal Medicine Gastroenterology
DX: K63.9 Disease of intestine, unspecified (principal); R73.9 Hyperglycemia, unspecified; K50.00 Crohn's disease of small intestine without complications; K60.3 Anal fistula; R10.31 Right lower quadrant pain

== ENCOUNTER 2019-08-25 05:56 | Inpatient (IN) | payer BC ==
[2019-08-25] VITALS (7 sets, daily range): BP systolic 117–157; BP diastolic 74–105
[~2019-08-25] VITALS: Ht 167.6 cm; Wt 141.0 kg
[~2019-08-25 05:56] MED LIST changes: -E-Z-PAQUE 96% w/w SUSP 176GM BTL As Ordered ONE
[2019-08-25] MEDS ORDERED: ONDANSETRON 4MG/2ML VIAL (J2405) IV ONE (06:15)
[2019-08-25] MEDS ORDERED: NS 1,000 ML IV ONE (06:15)
[2019-08-25 06:26] LABS: BASO % 0.2 % (0.0-1.0); EOS # 0.1 10^3/uL (0.0-0.5); HEMATOCRIT 42.9 % (36.0-47.0); LYMPH # 2.5 10^3/uL (1.5-5.0); LYMPH % 40.3 % (24.0-44.0); MEAN CORPUSCULAR HEMOGLOBIN 34.4 pg (27.0-33.0); MEAN CORPUSCULAR HGB CONC 32.6 g/dl (32.0-36.5); MEAN CORPUSCULAR VOLUME 105.4 fl (80.0-96.0); MONO # 0.4 10^3/uL (0.0-0.8); MONO % 6.7 % (0.0-5.0); NEUTROPHILS # 3.2 10^3/uL (1.5-8.5); NEUTROPHILS % 51.3 % (36.0-66.0); PLATELET COUNT, AUTOMATED 350 10^3/uL (150-450); RED BLOOD COUNT 4.07 10^6/uL (4.00-5.40); WHITE BLOOD COUNT 6.2 10^3/uL (4.0-10.0)
[2019-08-25] MEDS: MORPHINE 4 MG/ML 1ML VIAL/SYRINGE (J2270) IV PRN ×4 (06:27→09:59)
[2019-08-25 06:57] LABS: BILIRUBIN,DIRECT 0.2 MG/DL (0.0-0.2); BILIRUBIN,TOTAL 0.6 MG/DL (0.2-1.0); TOTAL PROTEIN 6.7 GM/DL (6.4-8.2)
[2019-08-25] MEDS ORDERED: ISOVUE-370 76% 100ML VIAL (Q9967) As Ordered ONE (06:58)
[2019-08-25 07:15] LABS: HEMOGLOBIN A1c 10.3 %
[2019-08-25] MEDS ORDERED: NS 1,000 ML IV SCH ×2 (07:15→11:27)
[2019-08-25] MEDS ORDERED: METF500T13 PO ×2 (07:15)
[2019-08-25] MEDS ORDERED: NEXI40CA PO (07:15)
[2019-08-25] MEDS ORDERED: VITA500079 PO (07:15)
[2019-08-25] MEDS ORDERED: HYDR25TAB PO (07:15)
[2019-08-25] MEDS ORDERED: B-12100010 PO (07:15)
--- NOTE | 2019-08-25 08:11 | REPVR ---
PROCEDURE INFORMATION: Exam: CT Abdomen And Pelvis With Contrast Exam date and time: 08/25/2019 7:20 AM Age: 43 years old Clinical indication: Abdominal pain; Generalized; Prior surgery; Surgery date: 6+ months; Surgery type: Ileocolic resection; Additional info: Abd pain, HX of crohn's, bowel obstruction TECHNIQUE: Imaging protocol: Computed tomography of the abdomen and pelvis with intravenous contrast. Radiation optimization: All CT scans at this facility use at least one of these dose optimization techniques: automated exposure control; mA and/or kV adjustment per patient size (includes targeted exams where dose is matched to clinical indication); or iterative reconstruction. Contrast material: ISOVUE 370; Contrast volume: 100 ml; Contrast route: IV; COMPARISON: CT ABD/PEL W/IV ORAL CONTRAS 05/16/2019 3:05 PM FINDINGS: Liver: The liver is enlarged measuring up to 20.3 cm in the midclavicular line and is mild diffusely hypoattenuated. Gallbladder and bile ducts: The patient is status post cholecystectomy. There is no biliary ductal dilatation. Pancreas: Normal. No ductal dilation. Spleen: Normal. No splenomegaly. Adrenals: Normal. No mass. Kidneys and ureters: There are few punctate stones in the left kidney measuring 1-2 mm. There are no ureteral stones or hydronephrosis. Stomach and bowel: There is a transverse and descending colon diverticulosis. The patient is status post partial right hemicolectomy with anastomosis in the right lower abdominal quadrant. There is a cluster of small bowel loops in the right lower abdominal quadrant just proximal to the enterocolonic anastomosis demonstrating dilatation up to 4.3 cm with whole thickening and surrounding stranding and edema. Appendix: No evidence of appendicitis. Intraperitoneal space: Unremarkable. No free air. No significant fluid collection. Vasculature: Unremarkable. No abdominal aortic aneurysm. Lymph nodes: Unremarkable. No enlarged lymph nodes. Bladder: Unremarkable as visualized. Reproductive: The endometrium in the lower uterine segment is slightly prominent. There is a 2.4 cm hypodensity in the cervix. There is a 2 cm left ovarian follicular cyst. Bones/joints: There is lower lumbar spine facet arthrosis and degenerative changes. Soft tissues: Unremarkable. IMPRESSION: 1. Status post partial right hemicolectomy with grossly intact anastomosis in the right lower abdominal quadrant. 2. Cluster of dilated small bowel loops up to 4.3 cm in the right lower abdominal quadrant just proximal to the ileocolonic anastomosis with significant pericolonic stranding and edema. This is coupled with diffuse mild distention of the small bowel loops. Findings are suggestive of early bowel obstruction due to stricture at or just proximal to the ileocolonic anastomosis, adhesions or internal hernia specially in view of the clustered bowel loops in the right lower quadrant. 3. Hepatomegaly with mild fatty infiltration. 4. Status post cholecystectomy. 5. 2 cm left ovarian follicular cyst. 6. Bicornuate uterus with prominent endometrium in the lower uterine segment in addition to 2.4 cm cervical hypodensity. These are grossly unchanged since the prior exam. Correlation with pelvic ultrasound is suggested. Electronically signed by: Rashid Castellanos On 08/25/2019 08:10:58 AM
[2019-08-25] MEDS ORDERED: HumuLIN R (REGULAR) INSULIN (NovoLIN R) **100U/ML** PER UNIT IV ONE (08:15)
--- NOTE | 2019-08-25 08:19 | REP ---
KUB: Three views presented. History: History of bowel obstruction. Abdomen pain. Comparison study: May 10 2012. Findings: There are clips in the right upper quadrant of the abdomen and anastomotic surgical suture line is visible in the right lower quadrant. There are water to loops of air-filled but nondilated small bowel in the central abdomen. A small quantity of air and stool are visible in the colon. There is no evidence of obstruction. Psoas margins and flank stripes are intact. Impression: No acute abnormality seen. Postoperative changes. Electronically Signed by Hari Harris MD 08/25/2019 08:11 A
--- NOTE | 2019-08-25 08:30 | REP ---
Portable chest x-ray: Single view. History: Resolving pneumonia. Comparison study: April 02, 2019. Findings: The lungs are well inflated and clear. The pleural angles are sharp. Heart size is normal. Pulmonary vasculature is not increased. Impression: No active disease. Electronically Signed by Hari Harris MD 08/25/2019 08:21 A
[2019-08-25] MEDS: ENOXAPARIN 40 MG/0.4 ML SYRINGE (J1650) SC SCH ×2 (09:00→12:23)
[2019-08-25] MEDS ORDERED: LEVEMIR (INSULIN DETEMIR) 1 UNITS/0.01ML SC SCH (09:00)
[2019-08-25] MEDS ORDERED: PRED10TA2 PO (09:16)
[2019-08-25] MEDS ORDERED: DEXTROSE 50% 50 ML SYRINGE IV PRN ×2 (10:00→10:30)
[2019-08-25] MEDS ORDERED: MORPHINE 4 MG/ML 1ML VIAL/SYRINGE (J2270) IV PRN ×2 (10:00→11:30)
[2019-08-25] MEDS ORDERED: GLUCOSE 4 GM CHEW TABLET PO PRN ×2 (10:00→10:30)
[2019-08-25] MEDS ORDERED: GLUCAGON FOR INJ 1 MG VIAL (J1610) SC PRN ×2 (10:00→10:30)
[2019-08-25] MEDS ORDERED: HumaLOG INSULIN (NovoLOG) PER UNIT SC SCH ×3 (10:30→21:00)
[2019-08-25] MEDS ORDERED: NALOXONE INJ 0.4 MG/1 ML VIAL (J2310) IV PRN (11:30)
[2019-08-25] MEDS ORDERED: diphenhydrAMINE INJ 50MG/ML VIAL (J1200) IV PRN (11:30)
[2019-08-25] MEDS ORDERED: EPIDURAL/PCA KEYS XX PRN (11:30)
[2019-08-25] MEDS ORDERED: NALBUPHINE HCL 10 MG/ML AMP (J2300) IV PRN (11:30)
[2019-08-25] MEDS: LR 1,000 ML IV SCH ×3 (11:31→20:52)
[2019-08-25] MEDS: ONDANSETRON 4MG/2ML VIAL (J2405) IV PRN (11:54)
[2019-08-25] MEDS: MORPHINE 1MG/ML IN 0.9% NACL 100ML IV BAG IV PRN (12:10)
[2019-08-25] MEDS: methylPREDNISolone INJ 40 MG/1 ML VIAL (J2920) IV SCH ×2 (12:20→22:16)
[2019-08-25] MEDS: PANTOPRAZOLE 40MG INJ (PROTONIX) (C9113) IV SCH ×2 (12:20→22:16)
[2019-08-25] MEDS: HumaLOG INSULIN (NovoLOG) PER UNIT SC SCH ×2 (12:21→18:10)
--- NOTE | 2019-08-25 16:46 | HPEPDOC ---
General Date of Admission Aug 25, 2019 at 09:52 Date of Service: Aug 25, 2019 Chief Complaint The patient is a 43-year-old female admitted with a reason for visit of Exacerbation Of Crohn's Disease. 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 the pain continued to worsen overnight so she came to the ED. The pain was 9/10 in intensity constant and burning in the upper abdomen and crampy in the right lower quadrant. This was associated with nausea but no vomiting. She had a pasty small bowel movement at night. Normally she has 4 to 6 bowel movements daily mostly unformed pudding like consistency. She did not see any blood in the stools. She also said that she has been getting over a cold for the past week which is almost gone. She did need some nebs last week as she was wheezing badly and could not come to work for 4 days. CXR in the ED was negative. CT abdomen and pelvis showed . Cluster of dilated small bowel loops up to 4.3 cm in the right lower abdominal quadrant just proximal to the ileocolonic anastomosis with significant pericolonic stranding and edema. This is coupled with diffuse mild distention of the small bowel loops. Findings are suggestive of early bowel obstruction due to stricture at or just proximal to the ileocolonic anastomosis, adhesions or internal hernia specially in view of the clustered bowel loops in the right lower quadrant. Her lactate was elevated and her lipase was also elevated though CT abdomen showed normal pancreas. She was admitted for possible pancreatitis and early small bowel obstruction. Home Medications Scheduled Cholecalciferol (Vitamin D3) (Vitamin D3) 5,000 Unit Tab.rapdis, 5,000 UNIT PO DAILY, (Reported) Cyanocobalamin (Vitamin B-12) (Vitamin B-12) 1,000 Mcg Capsule, 1,000 MCG PO DAILY, (Reported) Esomeprazole Magnesium (Nexium) 40 Mg Capsule., 40 MG PO DAILY, (Reported) Hydrochlorothiazide (Hydrochlorothiazide) 25 Mg Tablet, 25 MG PO DAILY, (Reported) Mercaptopurine (Mercaptopurine) 50 Mg Tablet, 200 MG PO DAILY, (Reported) Metformin HCl (Metformin HCl) 500 Mg Tablet, 500 MG PO QAM, (Reported) Metformin HCl (Metformin HCl) 500 Mg Tablet, 1,000 MG PO QPM, (Reported) Prednisone (Prednisone) 10 Mg Tablet, 30 MG PO DAILY, (Reported) Ustekinumab (Stelara) 90 Mg/1 Ml Syringe, 90 MG SC ASDIRECTED, (Reported) INJECT EVERY 8 WEEKS Allergies Coded Allergies: carbamazepine (Verified Allergy, Unknown, 05/16/19) rash Past Medical History Medical History Crohn disease on tripple immunosuppressant therapies H/O Partial SBOs Diabetes possibly steroid induced. Morbid obesity with GERONIMO on CPAP Renal stones. She reports Clostridium difficile colitis some years ago Fatty lever Surgical History Several surgical procedures for perirectal fistulas in the last 2 years. In 2002 she had undergone a bowel resection with an ileocolonic anastomosis. Appendectomy She did have a laparoscopic cholecystectomy at age 18. ILEOCOLIC RESECTION FOR TERMINAL ILEUM STRICTURE AND SBO 2004 LITHOTRIPSY 2008,2013 Tonsillectomy and adenoidectomy Family History FATHER: 62 YRS, LUNG CANCER MOTHER: 50 YRS, COLON CANCER 1 BROTHER(S) , 1 SISTER(S) . NO FAMILY HX OF BLADDER OR KIDNEY CANCER. Social History * Smoker: Denies Alcohol: Denies Drugs: denies A-FIB/CHADSVASC A-FIB History Current/History of A-Fib/PAF?: No Review of Systems Constitutional: Reports: Weakness, Fatigue; Denies: Chills, Fever, Night Sweats Eyes: Denies: Pain, Vision change ENT: Denies: Head Aches, Ear Pain, Dysphagia Skin: Denies: Rash, Lesions, Breakdown Pulmonary: Reports: Cough Cardiovascular: Denies: Chest Pain, Palpitations, Orthopnea, Paroxysmal Noc. Dyspnea, Lt Headedness Gastrointestinal: Reports: Nausea, Abdominal Pain Genitourinary: Denies: Dysuria, Frequency, Incontinence, Retention Hematologic: Denies: Bruising, Bleeding Excessively Musculoskeletal: Denies: Neck Pain, Back Pain, Joint Pain, Muscle Pain, Spasms Neurological: Denies: Weakness, Numbness, Change in speech, Confusion Physical Examination General Exam: Positive: Alert, Cooperative, Mild Distress Eye Exam: Positive: PERRLA, Conjunctiva & lids normal, EOMI; Negative: Sclera icteric ENT Exam: Positive: Atraumatic, Mucous membr. moist/pink, Pharynx Normal Neck Exam: Positive: Supple; Negative: JVD, thyromegaly Chest Exam: Positive: Clear to auscultation, Normal air movement Heart Exam: Positive: Rate Normal, Tachycardic, Regular Rhythm, Normal S1, Normal S2; Negative: Gallops, Murmurs, Rubs Telemetry: Positive: Sinus, Tachycardia Abdomen Exam: Positive: Normal bowel sounds (in the left quadrant and epigastrium. ), BS Hypoactive (in the right lower quadrant with few tinkling sounds. ), Soft, Tenderness (in the epigastrium, right lower quadrant to kip hypogastriu.), Other (No guarding or rigidity) Vital Signs Vital Signs Date Time Temp Pulse Resp B/P (MAP) Pulse Ox O2 Delivery O2 Flow Rate FiO2 08/25/19 15:00 97.7 97 14 131/84 (100) 98 3.0 08/25/19 14:00 Room Air Laboratory Data Labs 24H Laboratory Tests 2 08/25/19 06:09: Immature Granulocyte % (Auto) 0.5, Neutrophils (%) (Auto) 51.3, Lymphocytes (%) (Auto) 40.3, Monocytes (%) (Auto) 6.7H, Eosinophils (%) (Auto) 1.0, Basophils (%) (Auto) 0.2, Neutrophils # (Auto) 3.2, Lymphocytes # (Auto) 2.5, Monocytes # (Auto) 0.4, Eosinophils # (Auto) 0.1, Basophils # (Auto) 0.0, Nucleated Red Blood Cells % (auto) 0.0, Estimated Mean Plasma Glucose 249H, Hemoglobin A1c 10.3, Lactic Acid Level 3.9*H, Total Bilirubin 0.6, Direct Bilirubin 0.2, Aspartate Amino Transf (AST/SGOT) 56H, Alanine Aminotransferase (ALT/SGPT) 58, Alkaline Phosphatase 187H, Total Protein 6.7, Albumin 3.0L, Albumin/Globulin Ratio 0.81L, Lipase 741H 08/25/19 06:24: POC Glucose (Misc Panel) 407H, POC Sodium (Misc Panel) 137, POC Potassium (Misc Panel) 4.0, POC Chloride (Misc Panel) 98, POC Total CO2 (Misc Panel) 27.0, POC Blood Urea Nitrogen (Misc Panel 10, POC Ionized Calcium (Misc Panel) 4.4L, POC Creatinine (Misc Panel) 0.5L, POC Hematocrit (Misc Panel) 41.0 08/25/19 10:32: Lactic Acid Followup at 4 Hours 2.5*H 08/25/19 11:30: Bedside Glucose (Misc Panel) 276H 08/25/19 14:52: Lactic Acid Level 2.2*H CBC/BMP Laboratory Tests 08/25/19 06:09 Assessment/Plan SBO this is probably due to the chronic stricture at the ileocolic anastomotic site there is local edema ? crohns flare will give methyl pred. will keep NPO, IVF, zofran NG tube if needed. consult Surgery. Morphine CONSULTING SOLUTION MANAGER for pain control GERONIMO protocol and remote telemetry ? Pancreatitis elevated lipase but pancreas normal in the CT i do not think there is pancreatitis elevated possibly from duodenitis/ gastris will give pantoprazole IVF, NPO, Morphine CONSULTING SOLUTION MANAGER Diabetes uncontrolled will give levemir and lispro FS q6 hours hold metformin A1c is 10. May have to go home on insulin. Morbid obesity with GERONIMO may use own CPAP GERONIMO protocol in place. Crohn's disease will possible flare will give methl pred. on Stellara every 3 weeks recently changed will restart mercaptopurine when can take po DVT prophylaxis lovenox and teds. Plan / VTE VTE Prophylaxis Ordered?: Yes CIPRIANO RUTHERFORD MD Aug 25, 2019 16:46
[2019-08-25] MEDS ORDERED: LR 500 ML IV ONE (20:15)
--- NOTE | 2019-08-25 20:57 | REPVR ---
PROCEDURE INFORMATION: Exam: XR Abdomen, 1 View Exam date and time: 08/25/2019 6:43 PM Age: 43 years old Clinical indication: Abdominal pain; Other: Bowel obstruction TECHNIQUE: Imaging protocol: XR of the abdomen. Views: Frontal supine view of the abdomen. 1 View. COMPARISON: CR Abdomen,Flat Plate KUB 08/25/2019 6:29 AM FINDINGS: Gastrointestinal tract: Mildly distended loops of small bowel in the mid abdomen. Stomach does not appear dilated. Some fecal material in the right colon which does not appear dilated. Organs: Prior cholecystectomy. No organomegaly or mass effect. Bones/joints: Unremarkable. IMPRESSION: Mildly distended loops of small bowel in a nonspecific pattern. Electronically signed by: Isael Hernández On 08/25/2019 20:57:02 PM
[2019-08-25] MEDS: LEVEMIR (INSULIN DETEMIR) 1 UNITS/0.01ML SC SCH (22:16)
[2019-08-26] MEDS: HumaLOG INSULIN (NovoLOG) PER UNIT SC SCH ×3 (00:25→11:53)
[2019-08-26] MEDS: LR 1,000 ML IV SCH (00:27)
[2019-08-26 02:00] VITALS: BP 132/84
[2019-08-26 05:52] LABS: HEMATOCRIT 38.3 % (36.0-47.0); HEMOGLOBIN 12.8 g/dl (12.0-15.5); LYMPH # 0.5 10^3/uL (1.5-5.0); LYMPH % 12.5 % (24.0-44.0); MEAN CORPUSCULAR HEMOGLOBIN 35.2 pg (27.0-33.0); MEAN CORPUSCULAR HGB CONC 33.4 g/dl (32.0-36.5); MEAN CORPUSCULAR VOLUME 105.2 fl (80.0-96.0); MONO # 0.2 10^3/uL (0.0-0.8); MONO % 4.7 % (0.0-5.0); NEUTROPHILS # 3.4 10^3/uL (1.5-8.5); NEUTROPHILS % 82.3 % (36.0-66.0); PLATELET COUNT, AUTOMATED 287 10^3/uL (150-450); RED BLOOD COUNT 3.64 10^6/uL (4.00-5.40); WHITE BLOOD COUNT 4.1 10^3/uL (4.0-10.0)
[2019-08-26 06:00] VITALS: BP 131/84
[2019-08-26 06:27] LABS: BLOOD UREA NITROGEN 11 MG/DL (7-18); CALCIUM LEVEL 8.8 MG/DL (8.5-10.1); CARBON DIOXIDE LEVEL 28 MEQ/L (21-32); CHLORIDE LEVEL 99 MEQ/L (98-107); CREATININE FOR GFR 0.58 MG/DL (0.55-1.30); GLOMERULAR FILTRATION RATE > 60.0 (>58); GLUCOSE, FASTING 274 MG/DL (70-100); LIPASE 187 U/L (73-393); POTASSIUM SERUM 4.5 MEQ/L (3.5-5.1); SODIUM LEVEL 136 MEQ/L (136-145)
[2019-08-26] MEDS: NS 1,000 ML IV SCH ×2 (06:56→14:45)
[2019-08-26] MEDS: PANTOPRAZOLE 40MG INJ (PROTONIX) (C9113) IV SCH (08:54)
[2019-08-26] MEDS: methylPREDNISolone INJ 40 MG/1 ML VIAL (J2920) IV SCH (08:54)
[2019-08-26] MEDS: ENOXAPARIN 40 MG/0.4 ML SYRINGE (J1650) SC SCH (08:54)
[2019-08-26] MEDS: LEVEMIR (INSULIN DETEMIR) 1 UNITS/0.01ML SC SCH (08:55)
[2019-08-26 10:00] VITALS: BP 131/84
[2019-08-26] MEDS: ONDANSETRON 4MG/2ML VIAL (J2405) IV PRN (10:14)
--- NOTE | 2019-08-26 11:03 | REP ---
KUB: Three views presented. History: Followup small bowel obstruction. Comparison study: August 25, 2019. Findings: There are clips in right upper quadrant and sutures in the right lower quadrant of the abdomen. There is persistent moderately dilated loops of air and fluid-filled small bowel in the left central abdomen consistent with small bowel obstruction. There is a paucity of distal gas. Findings are essentially unchanged from yesterday's radiographs. Electronically Signed by Hari Harris MD 08/26/2019 10:54 A
[2019-08-26] MEDS: MORPHINE 1MG/ML IN 0.9% NACL 100ML IV BAG IV PRN (12:30)
[2019-08-26 14:00] VITALS: BP 124/81
[2019-08-26] MEDS ORDERED: MORP4INJ2 IV (15:34)
[2019-08-26] MEDS ORDERED: PROT40IN4 IV (15:34)
[2019-08-26] MEDS ORDERED: METH40VIAL IV (15:34)
[2019-08-26] MEDS ORDERED: ONDA4INJ48 IV (15:34)
[2019-08-26] MEDS ORDERED: INSUHUMDS SC (15:34)
[2019-08-26] MEDS ORDERED: INSUDET SC (15:34)
[2019-08-26] MEDS ORDERED: LOVE1INJ SC (15:34)
[2019-08-26] MEDS ORDERED: DIPH50IN14 IV (15:34)
[2019-08-26 16:20] VITALS: BP 142/95
--- NOTE | 2019-08-26 22:37 | DS.PDOC ---
Discharge Summary General Date of Admission Aug 25, 2019 at 09:52 Date of Discharge 08/26/19 Discharge Summary PROCEDURES PERFORMED DURING STAY: [None]. DISCHARGE DIAGNOSES: Small bowel obstruction SECONDARY DIAGNOSIS: Crohn's disease on tripple immunosuppressant therapy ILEOCOLIC RESECTION FOR TERMINAL ILEUM STRICTURE AND SBO 2003 Chronic steroid use H/O Partial SBOs Diabetes Morbid obesity GERONIMO on CPAP Renal stones s/p LITHOTRIPSY 2008,2012 Clostridium difficile colitis some years ago Fatty lever Several surgical procedures for perirectal fistulas in the last 2 years. Appendectomy She did have a laparoscopic cholecystectomy at age 18. Tonsillectomy and adenoidectomy COMPLICATIONS/CHIEF COMPLAINT: Exacerbation Of Crohn's Disease. 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 the pain continued to worsen overnight so she came to the ED. The pain was 9/10 in intensity constant and burning in the upper abdomen and crampy in the right lower quadrant. This was associated with nausea but no vomiting. She had a pasty small bowel movement at night. Normally she has 4 to 6 bowel movements daily mostly unformed pudding like consistency. She did not see any blood in the stools. She also said that she has been getting over a cold for the past week which is almost gone. She did need some nebs last week as she was wheezing badly and could not come to work for 4 days. CXR in the ED was negative. CT abdomen and pelvis showed . Cluster of dilated small bowel loops up to 4.3 cm in the right lower abdominal quadrant just proximal to the ileocolonic anastomosis with significant pericolonic stranding and edema. This is coupled with diffuse mild distention of the small bowel loops. Findings are suggestive of early bowel obstruction due to stricture at or just proximal to the ileocolonic anastomosis, adhesions or internal hernia specially in view of the clustered bowel loops in the right lower quadrant. Her lactate was elevated and her lipase was also elevated though CT abdomen showed normal pancreas. She was admitted for possible pancreatitis and early small bowel obstruction. Pancreatitis was ruled in view of normal pancreas in the CT abdomen and very mild lipase elevation which normalized in a few hours. Pateint's signs dnad symptoms of SBO did not improve overnight with conservative measures. Morning abdominal xray showed dilated bowel loops. Our general surgeon felt that she need surgical intervention by Colorectal surgeon. SBO this is probably due to the chronic stricture at the ileocolic anastomotic site there is local edema ? crohns flare given methyl pred. NPO, IVF, zofran Morphine HYBRID DERIVATIVES TRADER for pain control GERONIMO protocol and remote telemetry Discussed with pateint's Colorectal surgeon Dr West regarding no improvement of her bowel obstruction with conservative measures and he accepted the patient in transfer Pancreatitis ruled out elevated lipase but pancreas normal in the CT i do not think there is pancreatitis elevated possibly from duodenitis/ gastris /ileocolic issues will give pantoprazole Diabetes uncontrolled will give levemir and lispro FS q6 hours hold metformin A1c is 10. May have to go home on insulin. Morbid obesity with GERONIMO prescribed own CPAP GERONIMO protocol in place. Crohn's disease will possible flare given methl pred. on Stellara every 3 weeks recently changed also on mercaptopurine now held. DVT prophylaxis lovenox and teds. DISCHARGE MEDICATIONS: Please see below. ALLERGIES: Please see below. PHYSICAL EXAMINATION ON DISCHARGE: VITAL SIGNS: Please see below. General Exam: Positive: Alert, Cooperative, Mild Distress Eye Exam: Positive: PERRLA, Conjunctiva & lids normal, EOMI; Negative: Sclera icteric ENT Exam: Positive: Atraumatic, Mucous membr. moist/pink, Pharynx Normal Neck Exam: Positive: Supple; Negative: JVD, thyromegaly Chest Exam: Positive: Clear to auscultation, Normal air movement Heart Exam: Positive: Rate Normal, Tachycardic, Regular Rhythm, Normal S1, No rmal S2; Negative: Gallops, Murmurs, Rubs Telemetry: Positive: Sinus, Tachycardia Abdomen Exam: Positive: Normal bowel sounds (in the left quadrant and epigastrium. ), BS Hypoactive (in the right lower quadrant with few tinkling sounds. ), Soft, Tenderness (in the periumbilical area, right lower quadrant to the hypogastrium.), Other (No guarding or rigidity or rebound) LABORATORY DATA: Please see below. IMAGIN08/25/19 CT abdomen and pelvis with IV contrast only: 1. Status post partial right hemicolectomy with grossly intact anastomosis in the right lower abdominal quadrant. 2. Cluster of dilated small bowel loops up to 4.3 cm in the right lower abdominal quadrant just proximal to the ileocolonic anastomosis with significant pericolonic stranding and edema. This is coupled with diffuse mild distention of the small bowel loops. Findings are suggestive of early bowel obstruction due to stricture at or just proximal to the ileocolonic anastomosis, adhesions or internal hernia specially in view of the clustered bowel loops in the right lower quadrant. 3. Hepatomegaly with mild fatty infiltration. 4. Status post cholecystectomy. 5. 2 cm left ovarian follicular cyst. 6. Bicornuate uterus with prominent endometrium in the lower uterine segment in addition to 2.4 cm cervical hypodensity. These are grossly unchanged since the prior exam. Correlation with pelvic ultrasound is suggested. ACTIVITY: [As tolerated]. DIET: NPO DISPOSITION: 02 Xfer To Acute Hosp. DISCHARGE CONDITION: [Stable]. TIME SPENT ON DISCHARGE: 35 minutes. Vital Signs/I&Os Vital Signs Date Time Temp Pulse Resp B/P (MAP) Pulse Ox O2 Delivery O2 Flow Rate FiO2 08/26/19 16:20 98.1 103 18 142/95 (111) 95 Room Air 08/26/19 09:37 I&O- Last 24 Hours up to 6 AM 08/26/19 06:00 Intake Total 3835 ml Output Total 2700 ml Balance 1135 ml Laboratory Data Labs 24H Laboratory Tests 2 08/26/19 00:17: Bedside Glucose (Misc Panel) 233H 08/26/19 05:39: Immature Granulocyte % (Auto) 0.5, Neutrophils (%) (Auto) 82.3H, Lymphocytes (%) (Auto) 12.5L, Monocytes (%) (Auto) 4.7, Eosinophils (%) (Auto) 0.0, Basophils (%) (Auto) 0.0, Neutrophils # (Auto) 3.4, Lymphocytes # (Auto) 0.5L, Monocytes # (Auto) 0.2, Eosinophils # (Auto) 0.0, Basophils # (Auto) 0.0, Nucleated Red Blood Cells % (auto) 0.0, Anion Gap 9, Glomerular Filtration Rate > 60.0, Calcium Level 8.8, Lipase 187 08/26/19 06:16: Bedside Glucose (Misc Panel) 270H 08/26/19 11:44: Bedside Glucose (Misc Panel) 276H CBC/BMP Laboratory Tests 08/26/19 05:39 FSBS Laboratory Tests Test 08/26/19 00:17 08/26/19 06:16 08/26/19 11:44 Range/Units Bedside Glucose (Misc Panel) 233 270 276 70-105 MG/DL Discharge Medications Scheduled Enoxaparin Sodium (Lovenox) 40 Mg/0.4 Ml Syringe, 40 MG SC DAILY Insulin Detemir (Levemir) 100 Unit/1 Ml Vial, 10 UNITS SC BID Insulin Human Lispro (Humalog) 100 Unit/1 Ml Vial, 0 UNITS SC Q6H Methylprednisolone (Solu-Medrol 40 mg Vial) 40 Mg/1 Ml Vial, 40 MG IV Q12H Pantoprazole Sodium (Protonix IV) 40 Mg Vial, 40 MG IV Q12H Scheduled PRN Diphenhydramine HCl (Diphenhydramine HCl) 50 Mg/1 Ml Vial, 12.5 MG IV Q4HP PRN for ITCHING Morphine Sulfate (Morphine Sulfate) 4 Mg/1 Ml Vial, 4 MG IV Q1HP PRN for SEVERE PAIN (PS 8-10) Ondansetron HCl/Pf (Ondansetron HCl 4 mg/2 ml Vial) 4 Mg/2 Ml Vial, 4 MG IV Q6HP PRN for NAUSEA OR VOMITING Allergies Coded Allergies: carbamazepine (Verified Allergy, Unknown, 05/16/19) rash CIPRIANO RUTHERFORD MD Aug 26, 2019 22:37
== END 2019-08-26 16:45 | disposition short-term general hospital (02) | DRG 252 ==
LOC: M ED 05:56 → M ED INP 09:52 → ENRESERV 10:14 → M MSPAV 11:20
PROVIDERS: ADMIT Internal Medicine Nephrology; ATTEND Internal Medicine Nephrology
DX: K91.89 Other postprocedural complications and disorders of digestive system (principal); K56.609 Unspecified intestinal obstruction, unspecified as to partial versus complete obstruction; Z68.43 Body mass index [BMI] 50.0-59.9, adult; E66.01 Morbid (severe) obesity due to excess calories; K50.90 Crohn's disease, unspecified, without complications; K76.0 Fatty (change of) liver, not elsewhere classified; E11.9 Type 2 diabetes mellitus without complications; K29.80 Duodenitis without bleeding; Z79.52 Long term (current) use of systemic steroids; G47.33 Obstructive sleep apnea (adult) (pediatric); Z79.899 Other long term (current) drug therapy; Z88.8 Allergy status to other drugs, medicaments and biological substances; Z79.4 Long term (current) use of insulin

== ENCOUNTER → 2019-09-12 | Outpatient (REF) | payer BC ==
[~2019-09-12] MED LIST changes: +B-12100010 PO; +DIPH50IN14 IV; +HYDR25TAB PO; +INSUDET SC; +INSUHUMDS SC; +LOVE1INJ SC; +METF500T13 PO; +METH40VIAL IV; +MORP4INJ2 IV; +NEXI40CA PO; +ONDA4INJ48 IV; +PRED10TA2 PO; +PROT40IN4 IV; +VITA500079 PO
== END ==
LOC: M LAB REF 13:19
PROVIDERS: ATTEND Internal Medicine
DX: R30.0 Dysuria (principal); E09.65 Drug or chemical induced diabetes mellitus with hyperglycemia

== ENCOUNTER → 2019-10-21 | Outpatient (REF) | payer BC ==
[~2019-10-21] MED LIST changes: +ONDA4INJ4 IV; -ONDA4INJ48 IV
[2019-10-21 18:05] LABS: HEMOGLOBIN 11.5 g/dl (12.0-15.5); MEAN CORPUSCULAR HEMOGLOBIN 32.8 pg (27.0-33.0); MEAN CORPUSCULAR HGB CONC 31.9 g/dl (32.0-36.5); MEAN CORPUSCULAR VOLUME 102.6 fl (80.0-96.0); PLATELET COUNT, AUTOMATED 315 10^3/uL (150-450); RED BLOOD COUNT 3.51 10^6/uL (4.00-5.40); WHITE BLOOD COUNT 5.2 10^3/uL (4.0-10.0)
[2019-10-21 18:35] LABS: ALBUMIN 3.4 GM/DL (3.2-5.2); ALT/SGPT 52 U/L (12-78); BILIRUBIN,TOTAL 0.9 MG/DL (0.2-1.0); BLOOD UREA NITROGEN 10 MG/DL (7-18); C REACTIVE PROTEIN QUANTITATIV < 0.30 MG/DL (0.00-0.30); CALCIUM LEVEL 9.3 MG/DL (8.5-10.1); CARBON DIOXIDE LEVEL 27 MEQ/L (21-32); CHLORIDE LEVEL 105 MEQ/L (98-107); CREATININE FOR GFR 0.56 MG/DL (0.55-1.30); GLOMERULAR FILTRATION RATE > 60.0 (>58); GLUCOSE, FASTING 203 MG/DL (70-100); POTASSIUM SERUM 3.9 MEQ/L (3.5-5.1); SODIUM LEVEL 139 MEQ/L (136-145); TOTAL PROTEIN 7.2 GM/DL (6.4-8.2)
== END ==
LOC: M LAB REF 16:58
PROVIDERS: ATTEND Internal Medicine Gastroenterology
DX: K50.00 Crohn's disease of small intestine without complications (principal); R10.31 Right lower quadrant pain; Z80.0 Family history of malignant neoplasm of digestive organs; R19.7 Diarrhea, unspecified

== ENCOUNTER → 2019-10-25 | Outpatient (CLI) | payer BC | LOC: M WHC 12:31 | PROVIDERS: ATTEND Internal Medicine Gastroenterology | DX: K50.00 Crohn's disease of small intestine without complications (principal); R10.84 Generalized abdominal pain; R19.7 Diarrhea, unspecified; Z80.0 Family history of malignant neoplasm of digestive organs ==

== ENCOUNTER → 2019-11-22 | Outpatient (REF) | payer BC | LOC: M LAB REF 16:34 | PROVIDERS: ATTEND Internal Medicine | DX: K50.012 Crohn's disease of small intestine with intestinal obstruction (principal) ==

== ENCOUNTER → 2020-01-17 | Outpatient (CLI) | payer BC ==
[2020-01-17 15:01] LABS: ALBUMIN 2.9 GM/DL (3.2-5.2); ALT/SGPT 79 U/L (12-78); AMYLASE 52 U/L (25-115); BILIRUBIN,TOTAL 1.5 MG/DL (0.2-1.0); BLOOD UREA NITROGEN 8 MG/DL (7-18); CALCIUM LEVEL 8.8 MG/DL (8.5-10.1); CARBON DIOXIDE LEVEL 29 MEQ/L (21-32); CHLORIDE LEVEL 100 MEQ/L (98-107); CREATININE FOR GFR 0.78 MG/DL (0.55-1.30); GLOMERULAR FILTRATION RATE > 60.0 (>58); GLUCOSE, FASTING 272 MG/DL (70-100); LIPASE 452 U/L (73-393); POTASSIUM SERUM 4.3 MEQ/L (3.5-5.1); SODIUM LEVEL 139 MEQ/L (136-145); TOTAL PROTEIN 6.4 GM/DL (6.4-8.2)
== END ==
LOC: M LAB 14:02
PROVIDERS: ATTEND Internal Medicine
DX: R11.0 Nausea (principal)

== ENCOUNTER → 2020-01-23 | Outpatient (CLI) | payer BC ==
[~2020-01-23] MED LIST changes: +D 202000 PO; +ESOM1CAP5 PO; +FEXO180T70 PO; +HYDR-3490 PO; -HYDR25TAB PO; +METF500T13; +METO10TA2 PO; +OMEP40CA97 PO; +OXYB5TAB10 PO; +OZEM2INJ SC; +REGL10TA6 PO; +SUCR1TAB56; +VICO10TA11 PO; +VITA200015 PO
[2020-01-23 11:03] LABS: ALBUMIN 2.9 GM/DL (3.2-5.2); ALT/SGPT 58 U/L (12-78); AMYLASE 70 U/L (25-115); BILIRUBIN,TOTAL 1.2 MG/DL (0.2-1.0); BLOOD UREA NITROGEN 5 MG/DL (7-18); CALCIUM LEVEL 8.8 MG/DL (8.5-10.1); CARBON DIOXIDE LEVEL 26 MEQ/L (21-32); CHLORIDE LEVEL 105 MEQ/L (98-107); CREATININE FOR GFR 0.54 MG/DL (0.55-1.30); GLOMERULAR FILTRATION RATE > 60.0 (>58); GLUCOSE, FASTING 297 MG/DL (70-100); LIPASE 600 U/L (73-393); POTASSIUM SERUM 4.4 MEQ/L (3.5-5.1); SODIUM LEVEL 138 MEQ/L (136-145); TOTAL PROTEIN 6.2 GM/DL (6.4-8.2)
== END ==
LOC: M LAB 10:00
PROVIDERS: ATTEND Internal Medicine
DX: R10.9 Unspecified abdominal pain (principal)

== ENCOUNTER → 2020-01-27 | Outpatient (REF) | payer BC ==
[~2020-01-27] MED LIST changes: -D 202000 PO; -ESOM1CAP5 PO; -FEXO180T70 PO; -HYDR-3490 PO; +HYDR25TAB PO; -METF500T13; -METO10TA2 PO; -OMEP40CA97 PO; -OXYB5TAB10 PO; -OZEM2INJ SC; -REGL10TA6 PO; -SUCR1TAB56; -VICO10TA11 PO; -VITA200015 PO
== END ==
LOC: M LAB REF 16:45
PROVIDERS: ATTEND Internal Medicine
DX: N92.6 Irregular menstruation, unspecified (principal)

== ENCOUNTER → 2020-01-27 | Outpatient (REF) | payer BC ==
[2020-01-27 11:04] LABS: BASO % 0.3 % (0.0-1.0); EOS # 0.1 10^3/uL (0.0-0.5); EOS % 1.3 % (0.0-3.0); HEMOGLOBIN 13.1 g/dl (12.0-15.5); LYMPH # 1.4 10^3/uL (1.5-5.0); LYMPH % 36.5 % (24.0-44.0); MEAN CORPUSCULAR HEMOGLOBIN 33.8 pg (27.0-33.0); MEAN CORPUSCULAR VOLUME 105.7 fl (80.0-96.0); MONO # 0.3 10^3/uL (0.0-0.8); MONO % 7.2 % (0.0-5.0); NEUTROPHILS # 2.1 10^3/uL (1.5-8.5); NEUTROPHILS % 53.9 % (36.0-66.0); PLATELET COUNT, AUTOMATED 272 10^3/uL (150-450); RED BLOOD COUNT 3.88 10^6/uL (4.00-5.40); WHITE BLOOD COUNT 3.9 10^3/uL (4.0-10.0)
[2020-01-27 11:29] LABS: ALT/SGPT 69 U/L (12-78); AMYLASE 60 U/L (25-115); BILIRUBIN,DIRECT 0.5 MG/DL (0.0-0.2); BILIRUBIN,TOTAL 1.5 MG/DL (0.2-1.0); BLOOD UREA NITROGEN 9 MG/DL (7-18); CALCIUM LEVEL 9.3 MG/DL (8.5-10.1); CARBON DIOXIDE LEVEL 24 MEQ/L (21-32); CHLORIDE LEVEL 105 MEQ/L (98-107); CREATININE FOR GFR 0.58 MG/DL (0.55-1.30); GLOMERULAR FILTRATION RATE > 60.0 (>58); GLUCOSE, FASTING 255 MG/DL (70-100); LIPASE 562 U/L (73-393); POTASSIUM SERUM 4.5 MEQ/L (3.5-5.1); SODIUM LEVEL 141 MEQ/L (136-145); TOTAL PROTEIN 6.7 GM/DL (6.4-8.2)
== END ==
LOC: M LAB REF 10:41
PROVIDERS: ATTEND Internal Medicine Pulmonary Disease
DX: R10.10 Upper abdominal pain, unspecified (principal)

== ENCOUNTER → 2020-04-06 | Outpatient (REF) | payer BC ==
[2020-04-06 18:26] LABS: AMYLASE 103 U/L (25-115); BLOOD UREA NITROGEN 8 MG/DL (7-18); CALCIUM LEVEL 9.2 MG/DL (8.5-10.1); CARBON DIOXIDE LEVEL 27 MEQ/L (21-32); CHLORIDE LEVEL 100 MEQ/L (98-107); CREATININE FOR GFR 0.59 MG/DL (0.55-1.30); GLOMERULAR FILTRATION RATE > 60.0 (>58); GLUCOSE, FASTING 285 MG/DL (70-100); LIPASE 444 U/L (73-393); POTASSIUM SERUM 4.1 MEQ/L (3.5-5.1); SODIUM LEVEL 136 MEQ/L (136-145)
== END ==
LOC: M LAB REF 16:47
PROVIDERS: ATTEND Internal Medicine Pulmonary Disease
DX: K50.018 Crohn's disease of small intestine with other complication (principal)

== ENCOUNTER → 2020-05-29 | Outpatient (REF) | payer BC | LOC: M LAB REF 16:21 | PROVIDERS: ATTEND Internal Medicine | DX: M16.11 Unilateral primary osteoarthritis, right hip (principal) ==

== ENCOUNTER 2020-06-23 08:19 | Emergency (ER) | payer BC ==
[~2020-06-23] VITALS: Ht 170.2 cm; Wt 117.8 kg
[2020-06-23] MEDS ORDERED: MERC50TA2 (08:37)
[2020-06-23] MEDS ORDERED: SUCR1TAB56 (08:37)
[2020-06-23] MEDS ORDERED: STEL90IN (08:37)
[2020-06-23] MEDS ORDERED: OMEP40CA97 PO (08:37)
[2020-06-23] MEDS ORDERED: METF500T13 (08:37)
[2020-06-23] MEDS ORDERED: VITA200015 (08:37)
[2020-06-23] MEDS ORDERED: CYAN100049 (08:37)
[2020-06-23] MEDS ORDERED: OZEM2INJ (08:37)
[2020-06-23] MEDS ORDERED: METOCLOPRAMIDE INJ 10MG/2ML VIAL (J2765 PER 1) IV ONE ×2 (09:00→13:45)
[2020-06-23] MEDS ORDERED: NS 1,000 ML IV ONE ×2 (09:00→10:15)
[2020-06-23 09:35] LABS: HEMATOCRIT 37.3 % (36.0-47.0); HEMOGLOBIN 11.7 g/dl (12.0-15.5); MEAN CORPUSCULAR HGB CONC 31.4 g/dl (32.0-36.5); PLATELET COUNT, AUTOMATED 149 10^3/uL (150-450); RED BLOOD COUNT 3.25 10^6/uL (4.00-5.40); WHITE BLOOD COUNT 2.4 10^3/uL (4.0-10.0)
[2020-06-23 09:36] LABS: VENOUS O2 SATURATION 94.4 % (60.0-80.0); VENOUS PARTIAL PRESSURE CO2 42.2 mmHg (38.0-50.0); VENOUS PARTIAL PRESSURE O2 69.7 mmHg (30.0-50.0); VENOUS PH 7.391 UNITS (7.330-7.430); VENOUS STANDARD HCO3 24.4 MEQ/L; VENOUS TOTAL CO2 26.3 MEQ/L (24.0-28.0)
[2020-06-23 09:39] LABS: MEAN CORPUSCULAR VOLUME 114.8 fl (80.0-96.0)
[2020-06-23 09:46] LABS: INR 1.17; PROTHROMBIN TIME 15.2 SECONDS (12.5-14.3)
[2020-06-23 09:47] LABS: PARTIAL THROMBOPLASTIN TIME 38.5 SECONDS (24.2-38.5)
[2020-06-23 10:44] LABS: ACETONE/KETONE 10.14 MG/DL (<2.81); ALBUMIN 2.4 GM/DL (3.2-5.2); ALT/SGPT 91 U/L (12-78); AMYLASE 56 U/L (25-115); BILIRUBIN,DIRECT 2.4 MG/DL (0.0-0.2); BILIRUBIN,TOTAL 3.5 MG/DL (0.2-1.0); BLOOD UREA NITROGEN 7 MG/DL (7-18); C REACTIVE PROTEIN QUANTITATIV 1.53 MG/DL (0.00-0.30); CALCIUM LEVEL 8.2 MG/DL (8.5-10.1); CARBON DIOXIDE LEVEL 27 MEQ/L (21-32); CHLORIDE LEVEL 104 MEQ/L (98-107); CK-MB VALUE MASS 1.2 NG/ML (<3.6); CPK CREATINE PHOSPHOKINASE 97 U/L (26-192); CREATININE FOR GFR 0.57 MG/DL (0.55-1.30); GLOMERULAR FILTRATION RATE > 60.0 (>58); GLUCOSE, FASTING 268 MG/DL (70-100); LIPASE 622 U/L (73-393); MB/CK RELATIVE INDEX 1.24 (< OR =4); POTASSIUM SERUM 3.8 MEQ/L (3.5-5.1); SODIUM LEVEL 140 MEQ/L (136-145); TOTAL PROTEIN 5.6 GM/DL (6.4-8.2); TROPONIN I < 0.02 NG/ML (< 0.10)
[2020-06-23 10:53] LABS: EOSINOPHILS 2 % (0-3); LYMPHOCYTES 46 % (16-44); MONOCYTES 2 % (0-5); NEUTROPHILS 50 % (28-66)
[2020-06-23 10:54] LABS: PLATELET ESTIMATE DECREASED (NORMAL)
[2020-06-23 11:34] LABS: ERYTHROCYTE SEDIMENTATION RATE 39 mm/hr (0-20)
[2020-06-23 11:43] LABS: OSMOLALITY SERUM 297 MOSM/KG (275-295)
--- NOTE | 2020-06-23 12:44 | REP ---
INDICATION: pancreatitis. COMPARISON: 01/24/2020. TECHNIQUE: Real-time sonographic evaluation of right upper quadrant performed. FINDINGS: There has been a prior cholecystectomy.. There is no intrahepatic or extrahepatic biliary dilatation, common bile duct measures 6 mm in maximum diameter. The liver demonstrates homogeneous echotexture with no gross mass. The pancreas demonstrates homogeneous echotexture with no gross mass. The right kidney demonstrates no hydronephrosis, with a normal size of 12.5 cm in length. Pancreas and right kidney are not optimally visualized due to overlying bowel gas.No free fluid is seen. IMPRESSION: Prior cholecystectomy. No acute abnormalities identified in the right upper quadrant. <Electronically signed by Shemar Oseguera > 06/23/20 [id number]
[2020-06-23] MEDS ORDERED: ISOVUE-370 76% 100ML VIAL As Ordered ONE (13:09)
--- NOTE | 2020-06-23 15:21 | REP ---
INDICATION: intractable vomiting/ pancreatitis COMPARISON: 08/25/2019. TECHNIQUE: CT Scan of the abdomen and pelvis was performed with intravenous administration of 100 cc of Isovue 370, without oral contrast. FINDINGS: Lung bases: Unremarkable. Liver: The length of the liver is approximately 19 cm, mildly enlarged. Gallbladder: Prior cholecystectomy. Spleen: Normal. Adrenals: Normal. Pancreas: Normal. Kidneys: There is a 5 mm intrarenal calculus in the mid right kidney without hydronephrosis. Small and large bowel: Prior right colonic surgery. A large amount of fecal material seen in the rectum. Several left colonic diverticula are present. There is mild pericolonic fat stranding of the inferior left colon which may represent mild diverticulitis. This was not present on the prior study. Free fluid: None. Abdominal aorta: No aneurysm or dissection. Adenopathy: None. Osseous structures: Unremarkable. Pelvis: A left ovarian cyst is present measuring 5.3 x 3.7 cm. IMPRESSION: Possible mild diverticulitis lower left colon. No other area of bowel thickening and no evidence of obstruction, free air or free fluid. Left ovarian cyst 5.3 x 3.7 cm. Mild hepatomegaly. Subcentimeter calculus right kidney. No hydronephrosis. <Electronically signed by Shemar Oseguera > 06/23/20 [id number]
[2020-06-23] MEDS ORDERED: REGL10TA6 PO (15:54)
[2020-06-23 16:22] VITALS: BP 128/69
--- NOTE | 2020-06-23 21:01 | ECGEPIP ---
[facility] - ED Test Date: 2020-06-23 Pat Name: PAT SHEFFIELD Department: Room: - Gender: Female Bird Tender: daniela : 1975 Requested By: SERGIO Torres Order Number: [id number] Reading MD: Sergio Grajeda Measurements Intervals [place] Rate: 87 P: 57 DE: 180 QRS: -10 QRSD: 100 T: 41 QT: 383 QTc: 463 Interpretive Statements SINUS RHYTHM Comparison tracing not on file Electronically Signed on 06-23-2020 21:01:30 EST by Sergio Grajeda
== END 2020-06-23 16:24 | disposition home or self-care (01) ==
LOC: M ED 08:19
DX: R11.2 Nausea with vomiting, unspecified (principal); E11.9 Type 2 diabetes mellitus without complications; R94.5 Abnormal results of liver function studies; Z88.8 Allergy status to other drugs, medicaments and biological substances
CPT/HCPCS: 74177; 76705; 80048; 80076; 81001; 82010; 82150; 82550; 82553; 82803; 83605; 83690; 83930; 84484; 85025; 85610; 85652; 85730; 86140; 87040; 87486; 87581; 87633; 87798; 93005; 93041; 96361; 96374; 96376; 99285; J2765; Q9967

== ENCOUNTER → 2020-08-02 | Outpatient (REF) ==
[~2020-08-02] MED LIST changes: +CYAN100049; +MERC50TA2; +METF500T13; +OMEP40CA97 PO; +OZEM2INJ; +REGL10TA6 PO; +STEL90IN; +SUCR1TAB56; +VITA200015
[2020-08-02 12:33] LABS: RSV AMPLIFICATION NEGATIVE (NEGATIVE)
== END ==
LOC: M EMP 11:34
PROVIDERS: ATTEND Pediatrics
DX: Z20.828 Contact with and (suspected) exposure to other viral communicable diseases (principal)

== ENCOUNTER → 2020-08-16 | Outpatient (CLI) | payer BC | LOC: M LABSMTC 10:48 | PROVIDERS: ATTEND Pediatrics | DX: Z20.822 Contact with and (suspected) exposure to COVID-19 (principal) ==

== ENCOUNTER 2020-08-18 12:17 | Outpatient (CLI) | payer BC ==
[~2020-08-18 12:17] MED LIST changes: +ALBUTEROL 90 MCG/ACT 8GM HFA INHALER INH PRN; +ALBUTEROL SULFATE 2.5 MG/0.5 ML INH NEB SOLN INH PRN; +EPINEPHrine INJ 1 MG/ML 1ML AMP IM PRN; +NS 1,000 ML IV SCH; +diphenhydrAMINE 50MG/ML VIAL (J1200) IV PRN; +methylPREDNISolone 125MG 2ML VIAL IV PRN
[2020-08-18 12:30] VITALS: BP 141/88
--- NOTE | 2020-08-18 12:59 | HPEPDOC ---
[facility] Medical History & Physical Date of Admission Aug 18, 2020 Date of Service: Aug 18, 2020 History and Physical Chief complaint: Presented to [facility] for an elective monoclonal antibody infusion for COVID19 History of present illness: She is a 44-year-old female who had tested positive for COVID19 on 08/16/2020. Patient reported that shes been expressing congestion-like feeling when she gets an upper respiratory tract infection that prompted her to get tested. Patient reports that she doesnt experience much shortness of breath did experience some dyspnea on exertion today. Reports a cough with thick mucus. Patient has started Levaquin 500 milligrams, aspirin 81 and prednisone 10 since Monday. Patient denies any chest pain or palpitations. Denies any nausea, vomiting. Does report some right lower quadrant abdominal pain that occurs intermittently. Patient denies any constipation has reported some diarrhea since Monday. Patient reports 6 bowel movements that are watery on a daily basis. Patient denies any u rinary discomfort. Patient denies any fevers while at home noted that she has had a temperature 98.2F while at home. Denies any chills. Has reported sweats. Past Medical History: Crohns disease on triple immunosuppressant History of partial SBO NIDDM2 Morbid Obesity GERONIMO on CPAP Hx of Nephrolithiasis Vitamin B12 deficiency Hx of C. diff Fatty liver Past Surgical History: Perirectal fistula / abscess repairs (17 surgeries over the last 3 years) Bowel resection and iliocolonic anastomosis (2002) Appendectomy Laparoscopic cholecystectomy Ileocolic resection for terminal ileum stricture and SBO (2019) Ileocolic resection for terminal ileum stricture and SBO (2002) Tonsillectomy / Adenoidectomy Allergies: See below Medications: See below Family History: - Mother with history of colon cancer - Father with history of lung cancer Social History: - Denies the use of alcohol, tobacco or illicit drugs - Denies recent travel or sick contacts - Lives with - 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[employer] Review of Systems: 10 point review of systems complete, all negative otherwise stated in HPI Physical exam: - Vitals: Sat [97%RA] - General: Sitting up in bed, No acute distress, Speaking in full sentences, AAOx3 - HEENT: NC, AT - CVS: RRR, +S1S2 - Lungs: Fair air entry bilaterally, No appreciable wheezing / rales / rhonchi - Abdomen: Soft, Non-distended, Non-tender - Extremities: No lower extremity edema, No calf tenderness - Neuro: No focal motor or sensory deficit - Skin: No visible rashes Labs: See below Imaging: See below EKG: See below Assessment and Plan: COVID19 - Patient presented to [facility] for an infusion if monoclonal antibodies - Patient is saturating well on room air - Will check CBC, CMP, Mag, INR, Fibrinogen, LDH, Ferritin, CRP, BNP and Procalcitonin - Will provide infusion of monoclonal antibodies - Discussed risks / benefits; patient consented - Will have outpatient follow up with PCP / Infectious disease upon discharge Home Medications Scheduled Omeprazole (Omeprazole) 40 Mg Capsule.dr, 1 CAP PO DAILY Scheduled PRN Metoclopramide HCl (Reglan) 10 Mg Tablet, 10 MG PO Q6H PRN for NAUSEA Miscellaneous Medications Cholecalciferol (Vitamin D3) (Vitamin D3) 50 Mcg Tablet Cyanocobalamin (Vitamin B-12) (Vitamin B-12) 1,000 Mcg Tablet Mercaptopurine (Mercaptopurine) 50 Mg Tablet Metformin HCl (Metformin HCl) 500 Mg Tablet Semaglutide (Ozempic) 0.25 Mg/0.2 Ml Pen.injctr Sucralfate (Sucralfate) 1 Gm Tablet Ustekinumab (Stelara) 90 Mg/1 Ml Syringe Allergies Coded Allergies: carbamazepine (Verified Allergy, Unknown, 05/16/19) rash GERARDO CHAPPELL MD Aug 18, 2020 12:59
[2020-08-18 13:00] VITALS: BP 134/83
[2020-08-18 13:07] LABS: BASO % 0.2 % (0.0-1.0); EOS # 0.1 10^3/uL (0.0-0.5); EOS % 1.3 % (0.0-3.0); HEMATOCRIT 38.5 % (36.0-47.0); HEMOGLOBIN 12.3 g/dl (12.0-15.5); LYMPH # 0.8 10^3/uL (1.5-5.0); MEAN CORPUSCULAR HEMOGLOBIN 33.6 pg (27.0-33.0); MEAN CORPUSCULAR HGB CONC 31.9 g/dl (32.0-36.5); MEAN CORPUSCULAR VOLUME 105.2 fl (80.0-96.0); MONO # 0.5 10^3/uL (0.0-0.8); MONO % 8.8 % (0.0-5.0); NEUTROPHILS # 4.2 10^3/uL (1.5-8.5); NEUTROPHILS % 74.2 % (36.0-66.0); PLATELET COUNT, AUTOMATED 196 10^3/uL (150-450); RED BLOOD COUNT 3.66 10^6/uL (4.00-5.40); WHITE BLOOD COUNT 5.6 10^3/uL (4.0-10.0)
[2020-08-18 13:21] LABS: INR 1.13; PROTHROMBIN TIME 14.8 SECONDS (12.5-14.3)
[2020-08-18] MEDS ORDERED: SODIUM CHLORIDE 0.9% 1000ML IV ONE (14:00)
[2020-08-18 14:07] LABS: ALBUMIN 3.2 GM/DL (3.2-5.2); ALT/SGPT 56 U/L (12-78); BLOOD UREA NITROGEN 7 MG/DL (7-18); CALCIUM LEVEL 9.2 MG/DL (8.5-10.1); CARBON DIOXIDE LEVEL 25 MEQ/L (21-32); CHLORIDE LEVEL 104 MEQ/L (98-107); FERRITIN 145 NG/ML (8-252); GLOMERULAR FILTRATION RATE > 60.0 (>58); GLUCOSE, FASTING 300 MG/DL (70-100); LDH LACTATE DEHYDROGENASE 182 U/L (84-246); MAGNESIUM LEVEL 1.5 MG/DL (1.8-2.4); NT-PRO BNP 23 PG/ML (<125); SODIUM LEVEL 137 MEQ/L (136-145); TOTAL PROTEIN 7.4 GM/DL (6.4-8.2)
[2020-08-18] MEDS ORDERED: NS 1,000 ML IV SCH (14:15)
[2020-08-18 14:35] VITALS: BP 139/86
[2020-08-18] MEDS ORDERED: BAMLANIVIMAB 700 MG in NS 250 ML IV ONE (15:00)
[2020-08-18 15:15] VITALS: BP 134/91
[2020-08-18 16:00] VITALS: BP 141/67
== END 2020-08-18 16:36 ==
LOC: M OPCLIICU 12:17 → M ICU 12:17 → M OPCLIICU 16:36
PROVIDERS: ATTEND Internal Medicine
DX: U07.1 COVID-19 (principal); Z88.8 Allergy status to other drugs, medicaments and biological substances
CPT/HCPCS: 36415; 80053; 82728; 83615; 83735; 83880; 84145; 85025; 85384; 85610; 86140; 96361; M0239

== ENCOUNTER → 2020-08-22 | Day surgery (SDC) | payer BC ==
[~2020-08-22] VITALS: Ht 168.9 cm; Wt 118.6 kg
[~2020-08-22] MED LIST changes: -ALBUTEROL 90 MCG/ACT 8GM HFA INHALER INH PRN; -ALBUTEROL SULFATE 2.5 MG/0.5 ML INH NEB SOLN INH PRN; +CONRAY-60 60% 50ML VIAL (Q9961) As Ordered ONE; -CYAN100049; +D 202000 PO; -EPINEPHrine INJ 1 MG/ML 1ML AMP IM PRN; +ESOM1CAP5 PO; +FEXO180T70 PO; +HYDR-3490 PO; -HYDR25TAB PO; +IBUPROFEN 600MG TAB PO PRN; +ISOVUE-370 76% 100ML VIAL As Ordered ONE; +KETOROLAC 30 MG/ML 1ML VIAL IV ONE; +LIDOCAINE 2% 100MG/5ML SDV (FOR ANES.) As Ordered ONE; +LIDOCAINE 2% 5ML JELLY UROJET As Ordered ONE; +LR 1,000 ML IV SCH; -MERC50TA2; +METO10TA2 PO; +MIDAZOLAM INJ 2MG/2ML VIAL (J2250 PER 1MG) As Ordered ONE; +MORPHINE 2 MG/ML 1ML VIAL (J2270) As Ordered ONE; +MORPHINE 2 MG/ML 1ML VIAL (J2270) IV ONE; +MORPHINE 4 MG/ML 1ML VIAL/SYRINGE (J2270) IV ONE; +NS 1,000 ML IV ONE; -NS 1,000 ML IV SCH; +ONDANSETRON 4MG/2ML VIAL As Ordered ONE; +ONDANSETRON 4MG/2ML VIAL IV ONE; +OXYB5TAB10 PO; -OZEM2INJ; +OZEM2INJ SC; -STEL90IN; +TAMSULOSIN 0.4 MG CAP PO ONE; +VICO10TA11 PO; -VITA200015; +VITA200015 PO; +ceFAZolin 2 GM/D5W 50 ML IV BAG (J0690 PER 500MG) IV ONE; -diphenhydrAMINE 50MG/ML VIAL (J1200) IV PRN; +fentaNYL 100 MCG/2 ML INJECTION (J3010) As Ordered ONE; +fentaNYL 100 MCG/2 ML INJECTION (J3010) IV PRN; -methylPREDNISolone 125MG 2ML VIAL IV PRN; +propofoL 200 MG/20 ML VIAL As Ordered ONE
--- OUTSIDE RECORDS SUMMARY | 2020-08-22 04:59 | CCD | Continuity of Care Document ---
Author Author Ulysses Perez MD Organization Unknown Address [address] [facility] [address] [place] [address] Phone [phone] Care Team Providers Care Buffet Attendant Name Role Phone Ayla Tucker MD AUTM [phone] Josias Perez JR, MD AUTM Unavailable Problems Active Problems Provider Date Obesity Josias Perez MD Onset: 08/22/2011 Cobalamin deficiency Josias Perez MD Onset: 08/22/2011 Body mass index 40+ - severely obese Josias Perez MD O nset: 09/03/2012 Uric acid urolithiasis Josias Perez MD Onset: 09/03/19 13 Crohn's disease Josias Perez MD Onset: 09/03/2012 Social History Type Date Description Comments Sex Unknown ETOH Use Occasionally consumes wine Tobacco Use Start: Unknown Patient has never smoked Allergies, Adverse Reactions, Alerts Active Allergies Reaction Severity Comments Date Tegretol rash 08/22/2011 Sulfa 11/22/2019 Medications Active Medications SIG Qnty Indications Ordering Provide r Date Sucralfate 1gm Tablets take one tablet by mouth one hour before meals three times a day and at bedtime 120tabs Josias Perez MD 01/27/2020 Ondansetron HCL 4mg Tablets 1 tablet every 6 hours prn/ for nausea or vomiting 30tabs Josias ibanez MD 01/27/2020 Esomeprazole Magnesium 40mg Capsul es DR take one capsule by mouth twice every day 60caps Israel elina Perez MD 12/31/2019 Ozempic (0.25 Or 0.5 MG/Dose) 2mg/1.5ML Solution Pen-Inject inject 0.25 mgs weekly x 4 weeks then inject 0.5 mg we ekly 4.5ml Josias Peerz MD 11/22/2019 Vitamin D2 2000Unit Tablets 1 /2 daily Josias Perez MD 09/12/2019 Vitamin B-12 1000mcg Tablets 1 by mouth every day 90tabs Josias Perez MD 07/16/2019 Stelara 130mg/26ML Solution as directed Josias Perez MD 06/04/2019 Mercaptopurine 50mg Tablets 200mg tabs- take 1 tab by mouth every am Unknown Metformin HCL 500mg Tablets Take One Tablet By Mouth Every Morning And 2 Tablets AT Supper 180tabs Josias Perez MD Immunizations CPT Code Status Date Vaccine Lot # [id number] Given 04/03/2019 PPD Vital Signs Date Vital Result Comment 05/29/2020 2:42pm BP Systolic 120 mmHg BP Diastolic 68 mmHg Heart Rate 68 /min Height 66.50 inches 5'6.50" Weight 260.00 lb BMI (Body Mass Index) 41.3 kg/m2 01/27/2020 3:22pm BP Systolic 118 mmHg BP Diastolic 727 mmHg Heart Rate 76 /min Height 66.50 inches 5'6.50" Weight 276.00 lb BMI (Body Mass Index) 43.9 kg/m2 Results Test Acquired Date Facility Test Result H/L Range Note Laboratory test finding 05/29/2020 [facility] [address] [place] [address] [phone] C Reactive Protein Quantitativ < 0.30 mg/dL Normal 0.00-0.30 Complete Blood Count 05/29/2020 [facility] Classification Analyst: [place] [address] [phone] WBC 4.0 x10*3/UL Low 4.1 - 10.9 1 RBC 3.80 x10*6/UL Low 4.20 - 6.30 Hemoglobin 13.8 g/dL 12.0 - 18.0 Hematocrit 40.4 % 37.0 - 51.0 MCV 106.3 fL High 80.0 - 97.0 MCH 36.5 pg High 26.0 - 32.0 MCHC 34.3 g/dL 31.0 - 38.0 RDW 16.0 % High 11.6 - 13.7 PLT 250 x10*3/UL 140 - 440 MPV 8.3 FL 7.8 - 11.0 Lymph % 35.9 % 10.0 - 58.5 Mid % 7.9 % 1.7 - 9.3 Neut % 56.2 % 37.0 - 92.0 Lymph # 1.4 x10*3/UL 0.6 - 4.1 Mid # 0.4 x10*3/UL 0.1 - 0.6 Neut # 2.2 x10*3/UL 2.0 - 7.8 Laboratory test finding 05/29/2020 [facility] Classification Analyst: [place] [address] [phone] Sed Rate 39 mm/hr High 0 - 15 Comprehensive Chem Profile 05/29/2020 [facility] Classification Analyst: [place] [address] [phone] Glucose 215 mg/dL High 74 - 99 2 BUN 8 mg/dL 7 - 18 Creatinine 0.7 mg/dL 0.6 - 1.3 Sodium 138 mEq/L 136 - 145 Potassium 4.3 mEq/L 3.5 - 5.1 Chloride 102 mEq/L 98 - 107 Carbon Dioxide 29 mEq/L 21 - 32 Calcium 9.4 mg/dL 8.5 - 10.1 Alk. Phosphatase 105 mg/dL 46 - 116 Total Bilirubin 2.1 mg/dL High 0.2 - 1.0 3 Ast (Sgot) 105 U/L High 15 - 37 Alt (SGPT) 92 U/L High 12 - 78 Albumin 3.2 g/dL Low 3.4 - 5.0 Total Protein 7.0 g/dL 6.4 - 8.2 A/G Ratio 0.84 CALC Low 1.00 - 1.90 GFR >= 60 mL/min >60 GFR >= 60 mL/min >60 4 Lipid Profile 05/29/2020 [facility] Classification Analyst: [place] [address] [phone] Cholesterol 161 mg/dL 131 - 200 Triglycerides 89 mg/dL 30 - 150 HDL Cholesterol 48 mg/dL 35 - 60 LDL (Calculated) 95 CALC 50 - 159 A1c 05/29/2020 [facility] Classification Analyst: [place] [address] [phone] Hba1c 9.5 % High <5.7 5 Est Avg Glucose 226 mg/dL High 60 - 110 Laboratory test finding 01/27/2020 [place] [address] [phone] HCG, Serum Quantitative < 1.0 MIU/ML Normal 6 Comprehensive Metabolic Profil 01/23/[address] [address] [phone] Glucose, Fasting 297 mg/dL High 70-100 Blood Urea Nitrogen 5 mg/dL Low 7-18 Creatinine For GFR 0.54 mg/dL Low 0.55-1.30 Glomerular Filtration Rate > 60.0 Normal >58 7 Sodium Level 138 mEq/L Normal 136-145 Potassium Serum 4.4 mEq/L Normal 3.5-5.1 Chloride Level 105 mEq/L Normal 98-107 Carbon Dioxide Level 26 mEq/L Normal 21-32 Anion Gap 7 mEq/L Low 8-16 Calcium Level 8.8 mg/dL Normal 8.5-10.1 Ast/Sgot 61 U/L High 7-37 Alt/SGPT 58 U/L Normal 12-78 Alkaline Phosphatase 88 U/L Normal 45-117 Bilirubin,Total 1.2 mg/dL High 0.2-1.0 Total Protein 6.2 GM/DL Low 6.4-8.2 Albumin 2.9 GM/DL Low 3.2-5.2 Albumin/Globulin Ratio 0.9 Low 1.2-2.2 Laboratory test finding 01/23/[address] [address] [phone] Lipase 600 U/L High 73-393 Amylase 70 U/L Normal 25-115 Comprehensive Metabolic Profil 01/17/[address] [address] [phone] Glucose, Fasting 272 mg/dL High 70-100 Blood Urea Nitrogen 8 mg/dL Normal 7-18 Creatinine For GFR 0.78 mg/dL Normal 0.55-1.30 Glomerular Filtration Rate > 60.0 Normal >58 8 Sodium Level 139 mEq/L Normal 136-145 Potassium Serum 4.3 mEq/L Normal 3.5-5.1 Chloride Level 100 mEq/L Normal 98-107 Carbon Dioxide Level 29 mEq/L Normal 21-32 Anion Gap 10 mEq/L Normal 8-16 Calcium Level 8.8 mg/dL Normal 8.5-10.1 Ast/Sgot 81 U/L High 7-37 Alt/SGPT 79 U/L High 12-78 Alkaline Phosphatase 90 U/L Normal 45-117 Bilirubin,Total 1.5 mg/dL High 0.2-1.0 Total Protein 6.4 GM/DL Normal 6.4-8.2 Albumin 2.9 GM/DL Low 3.2-5.2 Albumin/Globulin Ratio 0.8 Low 1.2-2.2 Laboratory test finding 01/17/[address] [id number] [phone] Amylase 52 U/L Normal 25-115 Lipase 452 U/L High 73-393 1 NOTE: RESULT VERIFIED. 2 100-125 mg/dL PRE-DIABET ES/FASTING >126 mg/dL DIABETES/FASTING 3 NOTE: T.BILI,AST,ALT VERIFIED 4 CHRONIC KIDNEY DISEASE STAGI NG PER NKF STAGE I & II GFR >= 60 NORMAL TO MILDLY DECREASED STAGE III GFR 30-59 MODERATELY DECREASED STAGE IV GFR 15-29 SEVERELY DECREASED STAGE V GFR <15 VERY LITTLE GFR LEFT ESRD GFR <15 ON BUNGHOLE BORER 5 Lab Result Notes: Pre-Diabetes 5.7 - 6.4 % Diabetes = or > 6.5% 6 GESTATIONAL AGE APPROXIMATE HCG RANGE (MIU/ML) - 0.2-1 WEEK 5-50 1-2 WEEKS 50-500 2-3 WEEKS 100-5,000 3-4 WEEKS 500-10,000 4-5 WEEKS 1,000-50,000 5-6 WEEKS 10,000-100,000 6-8 WEEKS 15,000-200,000 2-3 MONTHS 10,000-100,00 0 NON FEMALES LESS THAN 3.0 Patient samples may contain human heterophilic antibodies that could react with immunoassays to give falsely elevated or depressed results. This assay has been designed to minimize interference from heterophilic antibodies. Elevated hCG levels have also been associated with trophoblastic disease and nontrophoblastic neoplasms. The possibility of having these diseases should be considered before a diagnosis of is made. This test is not intended for use as a surrogate marker for aiding in the diagnosis or monitoring the treatment of cancer patients. Siemens [place] methodology. 7 Units are mL/min/1.73 m2 Chronic Kidney Disease Staging per NKF: Stage I & II GFR >=60 Normal to Mildly Decreased Stage III GFR 30-59 Moderately Decreased Stage IV GFR 15-29 Severely Decreased Stage V GFR <15 Very Little GFR Left ESRD GFR <15 on BUNGHOLE BORER 8 Units are mL/min/1.73 m2 Chronic Kidney Disease Staging per NKF: Stage I & II GFR >=60 Normal to Mildly Decreased Stage III GFR 30-59 Moderately Decreased Stage IV GFR 15-29 Severely Decreased Stage V GFR <15 Very Little GFR Left ESRD GFR <15 on BUNGHOLE BORER Procedures Date Code Description Status 10/25/2019 403912180 Bone Mineral Density Test Comple km 01/07/2016 [id number] Colonoscopy Completed 06/14/2013 [id number] Colonoscopy Completed Medical Devices Description No Information Available Encounters Type Date Location Provider Dx Diagnosis Office Visit 05/29/2020 2:45p [facility] K50.012 Crohn's disease of small intestine w int estinal obstruction K50.012 Crohn's disease of small int estine w intestinal obstruction 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.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 Irregular menstruation, unsp ecified R11.0 Nausea K50.012 Crohn's disease of small int estine w intestinal obstruction Assessments Date Code Description Provider 05/29/2020 K50.012 Crohn's disease of s mall intestine with intestinal obstruction Josias Perez MD 05/29/2020 K50.012 Crohn's disease of s mall intestine with intestinal obstruction Josias Perez MD 05/29/2020 E09.65 Drug or chemical induced diabete s mellitus with hyperglycemia Josias Perez MD 05/29/2020 E09.65 Drug or chemical induced diabete s mellitus with hyperglycemia Josias Perez MD 05/29/2020 T38.0x5D Adverse effect of gl ucocorticoids and synthetic analogues, subsequent encounter Josias Perez MD 05/29/2020 T38.0x5D Adverse effect of gl ucocorticoids and synthetic analogues, subsequent encounter Josias Perez MD 05/29/2020 K30 Functional dyspepsia Josias Perez MD 05/29/2020 K30 Functional dyspepsmihai Perez MD 05/29/2020 E78.1 Pure hyperglyceridemia Josias Perez MD 05/29/2020 E78.1 Pure hyperglyceridemia Josias Perez MD 05/29/2020 M16.11 Unilateral primary osteoarthriti s, right hip Josias Perez MD 05/29/2020 M16.11 Unilateral primary osteoarthriti s, right hip Josias Perez MD 05/29/2020 E66.01 Morbid (severe) obesity due to e xcess calories Josias Perez MD 05/29/2020 E66.01 Morbid (severe) obesity due to e xcess calories Josias Perez MD 05/29/2020 Z68.41 Body mass index [BMI]40.0-44.9, adult Josias Perez MD 01/27/2020 K30 Functional dyspepsia Josias Perez MD 01/27/2020 N92.6 Irregular menstruation, unspecif ied Josias Perez MD 01/27/2020 R11.0 Nausea Josias nice MD 01/27/2020 K50.012 Crohn's disease of s mall intestine with intestinal obstruction Josias Perez MD Plan of Treatment Future Appointment(s):* 12/04/2020 2:30 pm - [facility] 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 * T38.0x5D Adverse effect of glucocorticoids and synthetic analogues, subsequent encounter * T38.0x5D Adverse effect of glucocorticoids and synthetic analogues, subsequent encounter * K30 Functional dyspepsia * K30 Functional dyspepsia * E78.1 Pure hyperglyceridemia * E78.1 Pure hyperglyceridemia * M16.11 Unilateral primary osteoarthritis, right hip * M16.11 Unilateral primary osteoarthritis, right hip * E66.01 Morbid (severe) obesity due to excess calories * E66.01 Morbid (severe) obesity due to excess calories * Z68.41 Body mass index [BMI]40.0-44.9, adult Functional Status Description No Information Available Mental Status Description No Information Available Referrals Refer to Reason for Referral Status Appt Date Ayla Tucker MD FLOR CONSULT FOR SCREENING EGD DX: DYSPEPSIA, N AUSEA Closed 02/19/[address] [place] [address] [place] [address] [phone]
--- OUTSIDE RECORDS SUMMARY | 2020-08-22 04:59 | CCD | Continuity of Care Document ---
Author Author Ulysses Perez MD Organization Unknown Address [address] [facility] [address] [place] [address] Phone [phone] Care Team Providers Care Instructional Writer Name Role Phone Ayla Tucker MD AUTM [phone] Josias Perez JR, MD AUTM Unavailable Problems [...] inject 0.5 mg we ekly 4.5ml Josias Perez MD 11/22/2019 Vitamin D2 2000Unit Tablets 1 [...] CPT Code Status Date Vaccine Lot # [id number] Given 04/03/2019 PPD Vital Signs Date Vital [...] H/L Range Note Laboratory test finding 05/29/2020 [facility] [address] [place] [address] [phone] C Reactive Protein Quantitativ < 0.30 mg/dL Normal 0.00-0.30 Complete Blood Count 05/29/2020 [facility] Material Engineer: [place] [address] [phone] WBC 4.0 x10*3/UL Low 4.1 - 10.9 [...] 2.0 - 7.8 Laboratory test finding 05/29/2020 [facility] Material Engineer: [place] [address] [phone] Sed Rate 39 mm/hr High 0 - 15 Comprehensive Chem Profile 05/29/2020 [facility] Material Engineer: [place] [address] [phone] Glucose 215 mg/dL High 74 - 99 [...] 60 mL/min >60 4 Lipid Profile 05/29/2020 [facility] Material Engineer: [place] Jos[place] [address] [phone] Cholesterol 161 mg/dL 131 - 200 Triglycerides 89 mg/dL 30 - 150 HDL Cholesterol 48 mg/dL 35 - 60 LDL (Calculated) 95 CALC 50 - 159 A1c 05/29/2020 [facility] Material Engineer: Dr Josias [place] [address] [phone] Hba1c 9.5 % High <5.7 5 Est Avg Glucose 226 mg/dL High 60 - 110 Laboratory test finding 01/27/2020 [place] [address] [phone] HCG, Serum Quantitative < 1.0 MIU/ML Normal 6 Comprehensive Metabolic Profil 01/23/[address] [address] [phone] Glucose, Fasting 297 mg/dL High 70-100 Blood [...] 0.9 Low 1.2-2.2 Laboratory test finding 01/23/[address] [address] [phone] Lipase 600 U/L High 73-393 Amylase 70 U/L Normal 25-115 Comprehensive Metabolic Profil 01/17/[address] [address] [phone] Glucose, Fasting 272 mg/dL High 70-100 Blood [...] 0.8 Low 1.2-2.2 Laboratory test finding 01/17/[address] 4[address]274 [phone] Amylase 52 U/L Normal 25-115 Lipase 452 [...] LITTLE GFR LEFT ESRD GFR <15 ON COMMUNITY RELATIONS ASSISTANT 5 Lab Result Notes: Pre-Diabetes 5.7 - [...] monitoring the treatment of cancer patients. Siemens [place] methodology. 7 Units are mL/min/1.73 m2 Chronic Kidney Disease Staging per NKF: Stage I & II GFR >=60 Normal to Mildly Decreased Stage III GFR 30-59 Moderately Decreased Stage IV GFR 15-29 Severely Decreased Stage V GFR <15 Very Little GFR Left ESRD GFR <15 on COMMUNITY RELATIONS ASSISTANT 8 Units are mL/min/1.73 m2 Chronic Kidney Disease Staging per NKF: Stage I & II GFR >=60 Normal to Mildly Decreased Stage III GFR 30-59 Moderately Decreased Stage IV GFR 15-29 Severely Decreased Stage V GFR <15 Very Little GFR Left ESRD GFR <15 on COMMUNITY RELATIONS ASSISTANT Procedures Date Code Description Status 10/25/2019 [id number] Bone Mineral Density Test Comple km 01/07/2016 [id number] Colonoscopy Completed 06/14/2013 [id number] Colonoscopy Completed Medical Devices Description No Information Available Encounters Type Date Location Provider Dx Diagnosis Office Visit 05/29/2020 2:45p [facility] K50.012 Crohn's disease of [...] [BMI]40.0-44 .9, adult Office Visit 01/27/2020 3:00p [facility] Josias Perez MD K30 Functional [...] 2:30 pm - [facility] 05/29/2020 - Josias Perez MD* [...] 02/19/[address] [place] [address] [place] [address] [phone]
--- OUTSIDE RECORDS SUMMARY | 2020-08-22 04:59 | CCD | Continuity of Care Document ---
Author Author Ulysses Perez MD Organization Unknown Address [address] [facility] [address] [place] [address] Phone [phone] Care Team Providers Care Bookkeeping Machine Mechanic Name Role Phone Ayla Tucker MD AUTM [phone] Josias Perez JR, MD AUTM Unavailable Problems [...] CPT Code Status Date Vaccine Lot # [id number] Given 04/03/2019 PPD Vital Signs Date Vital [...] H/L Range Note Laboratory test finding 05/29/2020 [facility] [address] [place] [address] [phone] C Reactive Protein Quantitativ < 0.30 mg/dL Normal 0.00-0.30 Complete Blood Count 05/29/2020 [facility] Counter Sales Person: [place] [address] [phone] WBC 4.0 x10*3/UL Low 4.1 - 10.9 [...] 2.0 - 7.8 Laboratory test finding 05/29/2020 [facility] Counter Sales Person: [place] [address] [phone] Sed Rate 39 mm/hr High 0 - 15 Comprehensive Chem Profile 05/29/2020 [facility] Counter Sales Person: [place] [address] [phone] Glucose 215 mg/dL High 74 - 99 [...] 60 mL/min >60 4 Lipid Profile 05/29/2020 [facility] Counter Sales Person: [place] [address] [phone] Cholesterol 161 mg/dL 131 - 200 Triglycerides 89 mg/dL 30 - 150 HDL Cholesterol 48 mg/dL 35 - 60 LDL (Calculated) 95 CALC 50 - 159 A1c 05/29/2020 [facility] Counter Sales Person: [place] [address] [phone] Hba1c 9.5 % High <5.7 5 Est Avg Glucose 226 mg/dL High 60 - 110 Laboratory test finding 01/27/2020 [place] [address] [phone] HCG, Serum Quantitative < 1.0 MIU/ML Normal 6 Comprehensive Metabolic Profil 01/23/[address] [address] [phone] Glucose, Fasting 297 mg/dL High 70-100 Blood [...] 0.9 Low 1.2-2.2 Laboratory test finding 01/23/[address] [address] [phone] Lipase 600 U/L High 73-393 Amylase 70 U/L Normal 25-115 Comprehensive Metabolic Profil 01/17/[address] [address] [phone] Glucose, Fasting 272 mg/dL High 70-100 Blood [...] 0.8 Low 1.2-2.2 Laboratory test finding 01/17/[address] [address] [phone] Amylase 52 U/L Normal 25-115 Lipase 452 [...] LITTLE GFR LEFT ESRD GFR <15 ON FABRICATION MIG WELDER 5 Lab Result Notes: Pre-Diabetes 5.7 - [...] monitoring the treatment of cancer patients. Siemens [place] methodology. 7 Units are mL/min/1.73 m2 Chronic Kidney Disease Staging per NKF: Stage I & II GFR >=60 Normal to Mildly Decreased Stage III GFR 30-59 Moderately Decreased Stage IV GFR 15-29 Severely Decreased Stage V GFR <15 Very Little GFR Left ESRD GFR <15 on FABRICATION MIG WELDER 8 Units are mL/min/1.73 m2 Chronic Kidney Disease Staging per NKF: Stage I & II GFR >=60 Normal to Mildly Decreased Stage III GFR 30-59 Moderately Decreased Stage IV GFR 15-29 Severely Decreased Stage V GFR <15 Very Little GFR Left ESRD GFR <15 on FABRICATION MIG WELDER Procedures Date Code Description Status 10/25/2019 [id number] Bone Mineral Density Test Comple km 01/07/2016 [id number] Colonoscopy Completed 06/14/2013 [id number] Colonoscopy Completed Medical Devices Description No Information Available Encounters Type Date Location Provider Dx Diagnosis Office Visit 01/27/2020 3:00p [facility] Josias Perez MD K30 Functional [...] K30 Functional dyspepsia Josias Perez MD 05/29/2020 E78.1 Pure hyperglyceridemia [...] 2:30 pm - Josias Perez MD at [facility] 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
--- OUTSIDE RECORDS SUMMARY | 2020-08-22 04:59 | CCD ---
Author Author [facility] Organization [facility] ems Address Unknown Phone Unavailable Care Team Providers Care Insulation Professional Name Role Phone Rupert Lopez Unavailable PROBLEMS Type Condition ICD9-CM Code [id number] Code Onset Dates Condition S tatus SNOMED Code Notes Problem Nephrolithiasis N20.0 Active 44550547 Problem Obstructive sleep apnea syndrome G47.33 Active 47912055 Problem Perianal abscess K61.0 Active 26082307 Problem Kidney stone 592.0 Active 60683704 Problem Intertriginous dermatitis associated with moisture L30.4 Active 607240910 Problem Abscess of buttock L02.31 Active 55145772 Problem Weight gain R63.5 Active 0145301 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 Code:[address]-34) Rash Drug A llergy Active ENCOUNTERS from 1975 to 2020-08-19 Encounter Location Date Provider Diagnosis [facility] [address] [place] [address] Aug, Rupert Lopez IMMUNIZATIONS Vaccine Route Administration Date Status Pneumococcal Adult 0.5mL (Pneumovax 23) IM Intramuscular October 062016 Administered Pneumococcal 0.5mL (Prevnar 13) IM Intramuscular Aug 25, 2016 Administered Meningococcal IM Intramuscular October 24, 2016 Administered Influenza (6mo & up) Fluzone Unknown Aug 25, 2016 Oth ers SOCIAL HISTORY Tobacco Use: Social History Observation Description Date Details (start date - stop date) Never Smoker Sex Assigned At : Social History Observation Description Sex Assigned At Unknown Education: Question Answer Notes Level of Education: Professional Schools/Masters/PhD Alcohol Screening: Question Answer Notes Did you have a drink containing alcohol in the past year? No Points 0 Interpretation Negative BMI Care Goal Follow-Up Question Answer Notes Above Normal BMI Follow-Up Dietary needs education Tobacco Use: Question Answer Notes Are you a: never smoker REASON FOR REFERRAL No Information VITAL SIGNS No information MEDICATIONS Medication SIG (Take, Route, Frequency, Duration) Notes Start Da te End Date Status Bactrim DS 800-160 MG 1 tablet Orally 3 times a week for 30 day( s) Oct, Active Probiotic 1 cap Orally once daily N ot-Taking Duricef 500 mg 1 tab oral bid for 30 day(s) Oct, Not-Taking Cholecalciferol 08975 UNIT 1 cap Orally weekly Not-Taking Potassium Bicarb-Citric Acid 15 1 tablet Orally twice daily Not-Taking Hydrochlorothiazide 12.5 MG 1 capsule Orally Once a day Not-Taking Pentasa 500 MG 4 capsules Orally twice a day prn Active Cimzia 2 X 200 MG 1 injection Subcutaneous monthly Active Mycostatin 107477 UNIT/GM as directed Externally Twice a day for 30 day(s) May, Active Doxycycline Hyclate 100 MG 1 tablet Orally Twice a day for 10 da y(s) May, Active Cefadroxil 500 MG TAKE ONE CAPSULE BY MOUTH TWICE A DAY for 30 Not-Taking Flagyl 500 MG 1 tablet Orally every 8 hrs for 30 day(s) Oct, Not-Taking Vitamin B12 1000 1 tablet Orally Once a day Active Vancocin HCl 125 MG 1 capsule Orally every 6 hrs for 14 day(s) Oct, Not-Taking Vitamin D 2000 UNIT 1 tablet Orally Once a day Not-Taking PROCEDURES No Information RESULTS No Results REASON FOR VISIT No Information MEDICAL (GENERAL) HISTORY Type Description Date Medical History Crohns disease Medical History Kidney stones Medical History Vitamin B12 deficiency Medical History Rectal abscess Surgical History ileocolic resection for terminal ileum s tricture and SBO 2003 Surgical History Lithotripsy 2008,2012 Surgical History cholecystectomy 1997 Surgical History T & A Surgical History I&D rectal x3 [facility] placed 11/12 12/02 and 12/16/152015 Surgical History Colonoscopy 01/2016 Surgical History I&D rectal 01/2016 Surgical History I&D right buttock Surgical History I&D and fisutaotomy Hospitalization History Septic Infection 2008 Hospitalization History [facility]- rectal abscess 11/2015 Goals Section No Information Health Concerns No Information MEDICAL EQUIPMENT No Information MENTAL STATUS No Information FUNCTIONAL STATUS No Information ASSESSMENTS No Information PLAN OF TREATMENT Medication Medication Name Sig Start Date Stop Date Doxycycline Hyclate 100 MG 1 tablet Orally Twice a day for 1 0 day(s) May, Mycostatin 529036 UNIT/GM as directed Externally Twice a day for 30 day(s) May, Bactrim DS 800-160 MG 1 tablet Orally 3 times a week for 30 day( s) Oct, Insurance Providers Payer Name Payer Address Payer Phone Insured Name Patient Relati onship to Insured Coverage Start Date Coverage End Date BCBS APRYL MONET PPO [phone] [facility] [employer] [place] [id number] PAT [place] self
--- OUTSIDE RECORDS SUMMARY | 2020-08-22 05:00 | CCD | Continuity of Care Document ---
Author Author Ulysses Perez MD Organization Unknown Address [address] [facility] [address] [place] [address] Phone [phone] Care Team Providers Care Floor Covering Layer Name Role Phone Ayla Tucker MD [facility] [phone] Josias Perez JR, MD [facility] Unavailable Problems [...] 1 /2 daily Josias Perez MD 09/12/2019 Prednisone 10mg Tablets 1 anni ly Josias Perez MD 09/12/2019 Vitamin B-12 1000mcg [...] CPT Code Status Date Vaccine Lot # [id number] Given 04/03/2019 PPD Vital Signs Date Vital [...] H/L Range Note Laboratory test finding 05/29/2020 [place] [address] [phone] High Sensitivity C-Reactive Protein <pending> Laboratory test finding 05/29/2020 [place] [employer] ayleen colbert [employer] 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: [place] [address] [phone] Sed Rate <pending> Laboratory test finding 01/27/[address] [address] [phone] HCG, Serum Quantitative < 1.0 MIU/ML Normal 1 Comprehensive Metabolic Profil 01/23/[address] [id number] [phone] Glucose, Fasting 297 mg/dL High 70-100 Blood Urea Nitrogen 5 mg/dL Low 7-18 Creatinine For GFR 0.54 mg/dL Low 0.55-1.30 Glomerular Filtration Rate > 60.0 Normal >58 2 Sodium Level 138 mEq/L Normal 136-145 Potassium [...] 0.9 Low 1.2-2.2 Laboratory test finding 01/23/[address] [address] [phone] Lipase 600 U/L High 73-393 Amylase 70 U/L Normal 25-115 Comprehensive Metabolic Profil 01/17/[address] [id number] [phone] Glucose, Fasting 272 mg/dL High 70-100 Blood Urea Nitrogen 8 mg/dL Normal 7-18 Creatinine For GFR 0.78 mg/dL Normal 0.55-1.30 Glomerular Filtration Rate > 60.0 Normal >58 3 Sodium Level 139 mEq/L Normal 136-145 Potassium [...] 0.8 Low 1.2-2.2 Laboratory test finding 01/17/2020 [facility] [address] [place] [address] [phone] Amylase 52 U/L Normal 25-115 Lipase 452 U/L High 73-393 1 GESTATIONAL AGE APPROXIMATE HCG RANGE (MIU/ML) - [...] monitoring the treatment of cancer patients. [employer] methodology. 2 Units are mL/min/1.73 m2 Chronic Kidney Disease Staging per NKF: Stage I & II GFR >=60 Normal to Mildly Decreased Stage III GFR 30-59 Moderately Decreased Stage IV GFR 15-29 Severely Decreased Stage V GFR <15 Very Little GFR Left ESRD GFR <15 on [employer] 3 Units are mL/min/1.73 m2 Chronic Kidney Disease Staging per NKF: Stage I & II GFR >=60 Normal to Mildly Decreased Stage III GFR 30-59 Moderately Decreased Stage IV GFR 15-29 Severely Decreased Stage V GFR <15 Very Little GFR Left ESRD GFR <15 on [employer] Procedures Date Code Description Status 10/25/2019 [id number] Bone Mineral Density Test Comple km 01/07/2016 [id number] Colonoscopy Completed 06/14/2013 [id number] Colonoscopy Completed Medical Devices Description No Information Available Encounters Type Date Location Provider Dx Diagnosis Office Visit 01/27/2020 3:00[facility] 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 Irregular menstruation, unsp ecified R11.0 Nausea K50.012 Crohn's disease of small int estine w intestinal obstruction Assessments Date Code Description Provider 01/27/2020 K30 Functional dyspepsia Josias Perez MD 01/27/2020 N92.6 Irregular menstruation, unspecif ied Josias Perez MD 01/27/2020 R11.0 Nausea Josias nice MD 01/27/2020 K50.012 Crohn's disease of s mall intestine with intestinal obstruction Josias Perez MD Plan of Treatment No Information Available Functional Status Description No Information Available Mental Status Description No Information Available Referrals Refer to Reason for Referral Status Appt Date Ayla Tucker MD FLOR CONSULT FOR SCREENING EGD DX: DYSPEPSIA, N AUSEA Closed 02/19/[address] [place] [address] [place] [address] [phone]
--- OUTSIDE RECORDS SUMMARY | 2020-08-22 05:01 | CCD ---
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 Name Role Phone Alexandra Humphries MD Unavailable Unavailable Alexandra Humphries MD Unavailable Unavailable Alexandra Humphries MD Unavailable Unavailable Alexandra Humphries MD Unavailable Unavailable Alexandra Humphries MD Unavailable Unavailable Alexandra Humphries MD Unavailable Unavailable Alexandra Humphries MD Unavailable Unavailable Alexandra Humphries MD Unavailable Unavailable Alexandra Humphries MD Unavailable Unavailable Alexandra Humphries MD Unavailable Unavailable Alexandra Humphries MD Unavailable Unavailable Alexandra Humphries MD Unavailable Unavailable Alexandra Humphries MD Unavailable Unavailable Alexandra Humphries MD Unavailable Unavailable Alexandra Humphries MD Unavailable Unavailable Alexandra Humphries MD Unavailable Unavailable Alexandra Humphries MD Unavailable Unavailable Alexandra Humphries MD Unavailable Unavailable Alexandra Humphries MD Unavailable Unavailable Alexandra Humphries MD Unavailable Unavailable Alexandra Humphries MD Unavailable Unavailable Alexandra Humphries MD Unavailable Unavailable Alexandra Humphries MD Unavailable Unavailable AnaAlexandra MD Unavailable Unavailable AnaAlexandra MD Unavailable Unavailable AustinAlexandra MD Unavailable Unavailable AnaAlexandra MD Unavailable Unavailable AustinAlexandra MD Unavailable Unavailable AustinAlexandra MD Unavailable Unavailable AnaAlexandra MD Unavailable Unavailable AnaAlexandra MD Unavailable Unavailable AustinAlexandra MD Unavailable Unavailable AustinAlexandra MD Unavailable Unavailable AustinAlexandra MD Unavailable Unavailable AustinAlexandra MD Unavailable Unavailable AustinAlexandra MD Unavailable Unavailable AustinAlexandra MD Unavailable Unavailable AustinAlexandra MD Unavailable Unavailable AustinAlexandra MD Unavailable Unavailable NaaAlexandra MD Unavailable Unavailable AnaAlexandra MD Unavailable Unavailable AnaAlexandra MD Unavailable Unavailable AustinAlexandra MD Unavailable Unavailable AustinAlexandra MD Unavailable Unavailable AustinAlexandra MD Unavailable Unavailable AnaAlexandra MD Unavailable Unavailable AnaAlexandra MD Unavailable Unavailable AustinAlexandra MD Unavailable Unavailable AustinAlexandra MD Unavailable Unavailable AustinAlexandra MD Unavailable Unavailable AnaAlexandra MD Unavailable Unavailable AnaAlexandra MD Unavailable Unavailable AnaAlexandra MD Unavailable Unavailable AustinAlexandra MD Unavailable Unavailable AnaAlexandra MD Unavailable Unavailable AnaAlexandra MD Unavailable Unavailable AnaAlexandra MD Unavailable Unavailable AnaAlexandra MD Unavailable Unavailable AustinAlexandra caldera MD Unavailable Unavailable AustinAlexandra MD Unavailable Unavailable AnaAlexandra MD Unavailable Unavailable AnaAlexandra caldera MD Unavailable Unavailable AnaAlexandra MD Unavailable Unavailable AustinAlexandra MD Unavailable Unavailable AnaAlexandra caldera MD Unavailable Unavailable AnaAlexandra caldera MD Unavailable Unavailable AustinAlexandra MD Unavailable Unavailable AnaAlexandra MD Unavailable Unavailable AnaAlexandra MD Unavailable Unavailable AustinAlexandra MD Unavailable Unavailable AustinAlexandra MD Unavailable Unavailable AnaAlexandra MD Unavailable Unavailable AustinAlexandra MD Unavailable Unavailable AustinAlexandra MD Unavailable Unavailable AnaAlexandra MD Unavailable Unavailable AustinAlexandra MD Unavailable Unavailable AustinAlexandra MD Unavailable Unavailable AnaAlexandra MD Unavailable Unavailable AustinAlexandra MD Unavailable Unavailable Austin, Alexandra Ferrara MD Unavailable Unavailable Ana, Alexandra Ferrara MD Unavailable Unavailable Austin, Alexandra Ferrara MD Unavailable Unavailable Ana, Alexandra Ferrara MD Unavailable Unavailable Austin, Alexandra Ferrara MD Unavailable Unavailable Austin, Alexandra Ferrara MD Unavailable Unavailable Austin, Alexandra Ferrara MD Unavailable Unavailable EV (ISADORA), Fiorella BURNS MD Unavailable Unavailab le EV (IS[place]ORA), Fiorella BURNS MD Unavailable Unavailab le EV ([place]), Fiorella BURNS MD Unavailable Unavailab le EV ([place]), Fiorella BURNS MD Unavailable Unavailab le EV (ISADORA), Fiorella BURNS MD Unavailable Unavailab le EV (IS[place]ORA), Fiorella BURNS MD Unavailable Unavailab le EV (ISAD[place]A), Fiorella BURNS MD Unavailable Unavailab le EV (IS[place]ORA), Fiorella BURNS MD Unavailable Unavailab le EV (ISADORA), Fiorella BURNS MD Unavailable Unavailab le EV (ISADORA), Fiorella BURNS MD Unavailable Unavailab le EV (ISADORA), Fiorella BURNS MD Unavailable Unavailab le EV (ISADORA), Fiorella BURNS MD Unavailable Unavailab le EV (ISADORA), Fiorella BURNS MD Unavailable Unavailab le EV (ISADORA), Fiorella BURNS MD Unavailable Unavailab le EV (IS[place]ORA), Fiorella BURNS MD Unavailable Unavailab le EV ([place]), Fiorella BURNS MD Unavailable Unavailab le EV (ISADORA), Fiorella BURNS MD Unavailable Unavailab le EV (IS[place]A), Fiorella BURNS MD Unavailable Unavailab le EV (ISADORA), Fiorella BURNS MD Unavailable Unavailab le EV (IS[place]), Fiorella BURNS MD Unavailable Unavailab le EV (ISADORA), Fiorella BURNS MD Unavailable Unavailab le EV (ISADORA), Fiorella BURNS MD Unavailable Unavailab le EV (ISADORA), Fiorella BURNS MD Unavailable Unavailab le EV (ISADORA), Fiorella BURNS MD Unavailable Unavailab le EV (ISADORA), Fioerlla BURNS MD Unavailable Unavailab le EV (ISADORA), Fiorella BURNS MD Unavailable Unavailab le EV (ISADORA), Fiorella BURNS MD Unavailable Unavailab le EV (ISADORA), Fiorella BURNS MD Unavailable Unavailab le EV (ISADORA), Fiorella BURNS MD Unavailable Unavailab le EV (ISADORA), Fiorella BURNS MD Unavailable Unavailab le EV (ISADORA), Fiorella BRUNS MD Unavailable Unavailab le EV (ISADORA), Fiorella BURNS MD Unavailable Unavailab le EV (ISADORA), Fiorella BURNS MD Unavailable Unavailab le EV (ISADORA), Fiorella BURNS MD Unavailable Unavailab le EV (ISADORA), Fiorella BURNS MD Unavailable Unavailab le EV (ISADORA), Fiorella BURNS MD Unavailable Unavailab le EV (ISADORA), Fiorella BURNS MD Unavailable Unavailab le EV (ISADORA), Fiorella BURNS MD Unavailable Unavailab le EV (ISADORA), Fiorella BURNS MD Unavailable Unavailab le EV (ISADORA), Fiorella BURNS MD Unavailable Unavailab le EV (ISADORA), Fiorella BURNS MD Unavailable Unavailab le EV (ISADORA), Fiorella BURNS MD Unavailable Unavailab le EV (ISADOR[place]), Fiorella BURNS MD Unavailable Unavailab le EV (IS[place]), Fiorella BURNS MD Unavailable Unavailab le EV (ISADORA), Fiorella BURNS MD Unavailable Unavailab le EV ([place]), Fiorella BURNS MD Unavailable Unavailab le EV ([place]), Fiorella BURNS MD Unavailable Unavailab le EV ([place]), Fiorella BURNS MD Unavailable Unavailab le EV ([place]), Fiorella BURNS MD Unavailable Unavailab le EV (ISADORA), Fiorella BURNS MD Unavailable Unavailab le EV (ISAD[place]), Fiorella BURNS MD Unavailable Unavailab le EV (ISADORA), Fiorella BURNS MD Unavailable Unavailab le EV (ISAD[place]), Fiorella BURNS MD Unavailable Unavailab le EV (ISADOR[place]), Fiorella BURNS MD Unavailable Unavailab le EV (ISADORA), Fiorella BURNS MD Unavailable Unavailab le EV (ISADORA), Fiorella BURNS MD Unavailable Unavailab le EV (ISADORA), Fiorella BURNS MD Unavailable Unavailab le EV (ISADORA), Fiorella BURNS MD Unavailable Unavailab le EV (ISADORA), Fiorella BURNS MD Unavailable Unavailab le EV (ISAD[place]), Fiorella BURNS MD Unavailable Unavailab le EV (ISAD[place]), Fiorella BURNS MD Unavailable Unavailab le EV (IS[place]), Fiorella BURNS MD Unavailable Unavailab le EV ([place]), Fiorella BURNS MD Unavailable Unavailab le EV (ISADORA), Foirella BURNS MD Unavailable Unavailab le EV (ISADORA), Fiorella BURNS MD Unavailable Unavailab le EV (ISADORA), Fiorella BURNS MD Unavailable Unavailab le EV (ISADOR[place]), Fiorella BURNS MD Unavailable Unavailab le EV (ISADORA), Fiorella BURNS MD Unavailable Unavailab le EV (ISADORA), Fiorella BURNS MD Unavailable Unavailab le EV ([place]), Fiorella BURNS MD Unavailable Unavailab le EV ([place]), Fiorella BURNS MD Unavailable Unavailab le EV ([place]), Fiorella BURNS MD Unavailable Unavailab le EV ([place]), Fiorella BURNS MD Unavailable Unavailab le EV ([place]), Fiorella BURNS MD Unavailable Unavailab le EV ([place]), Fiorella BURNS MD Unavailable Unavailab le EV ([place]), Fiorella BURNS MD Unavailable Unavailab le EV ([place]), Fiorella BURNS MD Unavailable Unavailab le EV ([place]), Fiorella BURNS MD Unavailable Unavailab le EV ([place]), Fiorella BURNS MD Unavailable Unavailab le EV ([place]), Fiorella BURNS MD Unavailable Unavailab le EV ([place]), Fiorella BURNS MD Unavailable Unavailab le EV ([place]), Fiorella BURNS MD Unavailable Unavailab le EV ([place]), Fiorella BURNS MD Unavailable Unavailab le EV ([place]), Fiorella BURNS MD Unavailable Unavailab le EV ([place]), Fiorella BURNS MD Unavailable Unavailab le EV ([place]), Fiorella BURNS MD Unavailable Unavailab le EV ([place]), Fiorella BURNS MD Unavailable Unavailab le EV ([place]), Fiorella BURNS MD Unavailable Unavailab le EV ([place]), Fiorella BURNS MD Unavailable Unavailab le EV ([place]), Fiorella BURNS MD Unavailable Unavailab le EV ([place]), Fiorella BURNS MD Unavailable Unavailab le EV (ISAD[place]), Fiorella BURNS MD Unavailable Unavailab le Felisa PARKER, S Subhanir Unavailable + Felisa PARKER, S Subhanir Unavailable + Felisa PARKER, S Subhanir Unavailable + Felisa PARKER, S Subhanir Unavailable + Felisa PARKER, S Subhanir Unavailable + Alexandra Humphries MD Unavailable Unavailable Alexandra Humphries MD Unavailable Unavailable Alexandra Humphries MD Unavailable Unavailable Alexandra Humphries MD Unavailable Unavailable Alexandra Humphries MD Unavailable Unavailable Alexandra Humphries MD Unavailable Unavailable AustinAlexandra MD Unavailable Unavailable AnaAlexandra MD Unavailable Unavailable AnaAlexandra MD Unavailable Unavailable AustinAlexandra MD Unavailable Unavailable AnaAlexandra MD Unavailable Unavailable AnaAlexandra MD Unavailable Unavailable AnaAlexandra MD Unavailable Unavailable AnaAlexandra MD Unavailable Unavailable AustinAlexandra MD Unavailable Unavailable AnaAlexandra MD Unavailable Unavailable AnaAlexandra MD Unavailable Unavailable AnaAlexandra MD Unavailable Unavailable AustinAlexandra MD Unavailable Unavailable AustinAlexandra MD Unavailable Unavailable AnaAlexandra MD Unavailable Unavailable AnaAlexandra MD Unavailable Unavailable AustinAlexandra MD Unavailable Unavailable AnaAlexandra MD Unavailable Unavailable AnaAlexandra MD Unavailable Unavailable AustinAlexandra MD Unavailable Unavailable AnaAlexandra MD Unavailable Unavailable AustinAlexandra MD Unavailable Unavailable AustinAlexandra MD Unavailable Unavailable AnaAlexandra MD Unavailable Unavailable AnaAlexandra MD Unavailable Unavailable AnaAlexandra MD Unavailable Unavailable AnaAlexandra MD Unavailable Unavailable AnaAlexandra MD Unavailable Unavailable AustinAlexandra MD Unavailable Unavailable AnaAlexandra MD Unavailable Unavailable AustinAlexandra MD Unavailable Unavailable AnaAlexandra MD Unavailable Unavailable AnaAlexandra MD Unavailable Unavailable AnaAlexandra MD Unavailable Unavailable AnaAlexandra MD Unavailable Unavailable AnaAlexandra MD Unavailable Unavailable AustinAlexandra MD Unavailable Unavailable AustinAlexandra MD Unavailable Unavailable AnaAlexandra MD Unavailable Unavailable AustinAlexandra MD Unavailable Unavailable AnaAlexandra MD Unavailable Unavailable AustinAlexandra MD Unavailable Unavailable AustinAlexandra MD Unavailable Unavailable AnaAlexandra MD Unavailable Unavailable AnaAlexandra MD Unavailable Unavailable AnaAlexandra MD Unavailable Unavailable AustinAlexandra MD Unavailable Unavailable AnaAlexandra MD Unavailable Unavailable AnaAlexandra MD Unavailable Unavailable AustinAlexandra MD Unavailable Unavailable AnaAlexandra MD Unavailable Unavailable AnaAlexandra MD Unavailable Unavailable AnaAlexandra MD Unavailable Unavailable AustinAlexandra MD Unavailable Unavailable AustinAlexandra MD Unavailable Unavailable Ana, Alexandra Ferrara MD Unavailable Unavailable Austin, Alexandra Ferrara MD Unavailable Unavailable Ana, F Brandin MD Unavailable Unavailable Ana, F Brandin MD Unavailable Unavailable Austin, F Brandin MD Unavailable Unavailable Ana, F Brandin MD Unavailable Unavailable Austin, F Brandin MD Unavailable Unavailable Austin, F Brandin MD Unavailable Unavailable Ana, F Brandin MD Unavailable Unavailable Ana, F Brandin MD Unavailable Unavailable Ana, F Brandin MD Unavailable Unavailable Ana, F Brandin MD Unavailable Unavailable Ana, F Brandin MD Unavailable Unavailable Austin, F Brandin MD Unavailable Unavailable Austin, F Brandin MD Unavailable Unavailable Ana, F Brandin MD Unavailable Unavailable Ana, F Brandin MD Unavailable Unavailable Austin, F Brandin MD Unavailable Unavailable Ana, F Brandin MD Unavailable Unavailable Austin, F Brandin MD Unavailable Unavailable Ana, F Brandin MD Unavailable Unavailable Ana, F Brandin MD Unavailable Unavailable Ana, F Brandin MD Unavailable Unavailable Ana, F Brandin MD Unavailable Unavailable Ana, F Brandin MD Unavailable Unavailable Diamante Hester MD Unavailable Unavailable Diamante Hester MD Unavailable Unavailable Diamante Hester MD Unavailable Unavailable Diamante Hester MD Unavailable Unavailable Diamante Hester MD Unavailable Unavailable Diamante Hester MD Unavailable Unavailable Diamante Hester MD Unavailable Unavailable Diamante Hester MD Unavailable Unavailable Diamante Hester MD Unavailable Unavailable Diamante Hester MD Unavailable Unavailable Diamante Hester MD Unavailable Unavailable Diamante Hester MD Unavailable Unavailable Diamante Hester MD Unavailable Unavailable Diamante Hester MD Unavailable Unavailable Diamante Hester MD Unavailable Unavailable Diamante Hester MD Unavailable Unavailable Diamante Hester MD Unavailable Unavailable Diamante Hester MD Unavailable Unavailable Diamante Hester MD Unavailable Unavailable Diamante Hester MD Unavailable Unavailable Diamante Hester MD Unavailable Unavailable Diamante Hester MD Unavailable Unavailable Diamante Hester MD Unavailable Unavailable Diamante Hester MD Unavailable Unavailable Diamante Hester MD Unavailable Unavailable Diamante Hester MD Unavailable Unavailable Diamante Hester MD Unavailable Unavailable Diamante Hester MD Unavailable Unavailable Diamante Hester MD Unavailable Unavailable Diamante Hester MD Unavailable Unavailable Kacie, A Ok MD Unavailable Unavailable Kacie, A Ok MD Unavailable Unavailable Kacie, A Ok MD Unavailable Unavailable Kacie, A Ok MD Unavailable Unavailable Kacie, A Ok MD Unavailable Unavailable Kacie, A Ok MD Unavailable Unavailable Kacie, A Ok MD Unavailable Unavailable Kacie, A Ok MD Unavailable Unavailable Kacie, A Ok MD Unavailable Unavailable Kacie, A Ok MD Unavailable Unavailable Kacie, A Ok MD Unavailable Unavailable Kacie, A Ok MD Unavailable Unavailable Kacie, A Ok MD Unavailable Unavailable Kacie, A Ok MD Unavailable Unavailable Kacie, A Ok MD Unavailable Unavailable Kacie, A Ok MD Unavailable Unavailable Kacie, A Ok MD Unavailable Unavailable Kacie, A Ok MD Unavailable Unavailable Kacie, A Ok MD Unavailable Unavailable Kacie, A Ok MD Unavailable Unavailable Kacie, A Ok MD Unavailable Unavailable Kacie, A Ok MD Unavailable Unavailable Kacie, A Ok MD Unavailable Unavailable Kacie, A Ok MD Unavailable Unavailable Kacie, A Ok MD Unavailable Unavailable Kacie, A Ok MD Unavailable Unavailable Kacie, A Ok MD Unavailable Unavailable Kacie, A Ok MD Unavailable Unavailable Kacie, A Ok MD Unavailable Unavailable Kacie, A Ok MD Unavailable Unavailable Kacie, A Ok MD Unavailable Unavailable Kacie, A Ok MD Unavailable Unavailable Kacie, A Ok MD Unavailable Unavailable Kacie, A Ok MD Unavailable Unavailable Kacie, A Ok MD Unavailable Unavailable Kaice, A Ok MD Unavailable Unavailable Kacie, A Ok MD Unavailable Unavailable Kacie, A Ok MD Unavailable Unavailable Kacie, A Ok MD Unavailable Unavailable Kacie, A Ok MD Unavailable Unavailable Kacie, A Ok MD Unavailable Unavailable Kacie, A Ok MD Unavailable Unavailable Kacie, A Ok MD Unavailable Unavailable Kacie, A Ok MD Unavailable Unavailable Kacie, A Ok MD Unavailable Unavailable Kacie, A Ok MD Unavailable Unavailable Kacie, A Ok MD Unavailable Unavailable Kacie, A Ok MD Unavailable Unavailable Kacie, A Ok MD Unavailable Unavailable N[place], [id number] Unavailable Unavailable EV (ISADORA), Fiorella BURNS MD Unavailable Unavailab le EV (ISADOR[place]), Fiorella BURNS MD Unavailable Unavailab le EV ([place]AD[place]), Fiorella BURNS MD Unavailable Unavailab le EV ([place]AD[place]), Fiorella BURNS MD Unavailable Unavailab le EV ([place]), Fiorella BURNS MD Unavailable Unavailab le EV (ISADORA), Fiorella BURNS MD Unavailable Unavailab le EV (ISAD[place]), Fiorella BURNS MD Unavailable Unavailab le EV (ISADOR[place]), Fiorella BURNS MD Unavailable Unavailab le EV (ISADOR[place]), Fiorella BURNS MD Unavailable Unavailab le EV (ISAD[place]), Fiorella BURNS MD Unavailable Unavailab le EV (ISADOR[place]), Fiorella BURNS MD Unavailable Unavailab le EV (ISADORA), Fiorella BURNS MD Unavailable Unavailab le EV (ISADOR[place]), Fiorella BURNS MD Unavailable Unavailab le EV (ISADORA), Fiorella BURNS MD Unavailable Unavailab le EV (ISADORA), Fiorella BURNS MD Unavailable Unavailab le EV (ISADORA), Fiorella BURNS MD Unavailable Unavailab le EV (ISADORA), Fiorella BURNS MD Unavailable Unavailab le EV (ISADORA), Fiorella BURNS MD Unavailable Unavailab le EV (ISADORA), Fiorella BURNS MD Unavailable Unavailab le EV (ISADORA), Fiorella BURNS MD Unavailable Unavailab le EV (ISADORA), Fiorella BURNS MD Unavailable Unavailab le EV (ISADOR[place]), Fiorella BURNS MD Unavailable Unavailab le EV (ISADORA), Fiorella BURNS MD Unavailable Unavailab le EV (ISADORA), Fiorella BURNS MD Unavailable Unavailab le EV (ISADORA), Fiorella BURNS MD Unavailable Unavailab le EV (ISADORA), Fiorella BURNS MD Unavailable Unavailab le EV (ISADORA), Fiorella BURNS MD Unavailable Unavailab le EV (ISADOR[place]), Fiorella BURNS MD Unavailable Unavailab le EV (ISADORA), Fiorella BURNS MD Unavailable Unavailab le EV (ISADOR[place]), Fiorella BURNS MD Unavailable Unavailab le EV (ISADORA), Fiorella BURNS MD Unavailable Unavailab le EV (ISADOR[place]), Fiorella BURNS MD Unavailable Unavailab le EV (ISADORA), Fiorella BURNS MD Unavailable Unavailab le EV (ISADORA), Fiorella BURNS MD Unavailable Unavailab le EV (ISADORA), Fiorella BURNS MD Unavailable Unavailab le EV (ISAD[place]), Fiorella BURNS MD Unavailable Unavailab le EV (ISADORA), Fiorella BURNS MD Unavailable Unavailab le EV (ISAD[place]), Fiorella BURNS MD Unavailable Unavailab le EV ([place]AD[place]), Fiorella BURNS MD Unavailable Unavailab le EV ([place]AD[place]), Fiorella BURNS MD Unavailable Unavailab le EV ([place]AD[place]), Fiorella BURNS MD Unavailable Unavailab le EV ([place]AD[place]), Fiorella BURNS MD Unavailable Unavailab le EV (ISAD[place]), Fiorella BURNS MD Unavailable Unavailab le EV ([place]AD[place]), Fiorella BURNS MD Unavailable Unavailab le EV (ISADORA), Fiorella BURNS MD Unavailable Unavailab le EV (ISAD[place]), Fiorella BURNS MD Unavailable Unavailab le EV (ISADOR[place]), Fiorella BURNS MD Unavailable Unavailab le EV (ISAD[place]), Fiorella BURNS MD Unavailable Unavailab le EV (ISADORA), Fiorella BURNS MD Unavailable Unavailab le EV (ISAD[place]), Fiorella BURNS MD Unavailable Unavailab le EV (ISAD[place]), Fiorella BURNS MD Unavailable Unavailab le EV ([place]AD[place]), Fiorella BURNS MD Unavailable Unavailab le EV ([place]AD[place]), Fiorella BURNS MD Unavailable Unavailab le EV (ISADOR[place]), Fiorella BURNS MD Unavailable Unavailab le EV (ISADOR[place]), Fiorella BURNS MD Unavailable Unavailab le EV ([place]), Fiorella BURNS MD Unavailable Unavailab le EV ([place]), Fiorella BURNS MD Unavailable Unavailab le EV ([place]AD[place]), Fiorella BURNS MD Unavailable Unavailab le EV ([place]), Fiorella BURNS MD Unavailable Unavailab le EV ([place]), Fiorella BURNS MD Unavailable Unavailab le EV ([place]), Fiorella BURNS MD Unavailable Unavailab le EV ([place]), Fiorella BURNS MD Unavailable Unavailab le EV ([place]), Fiorella BURNS MD Unavailable Unavailab le EV ([place]), Fiorella BURNS MD Unavailable Unavailab le EV ([place]), Fiorella BURNS MD Unavailable Unavailab le EV (ISAD[place]), Fiorella BURNS MD Unavailable Unavailab le EV ([place]), Fiorella BURNS MD Unavailable Unavailab le EV (ISAD[place]), Fiorella BURNS MD Unavailable Unavailab le EV ([place]AD[place]), Fiorella BURNS MD Unavailable Unavailab le EV (ISADORA), Fiorella BURNS MD Unavailable Unavailab le EV (ISAD[place]), Fiorella BURNS MD Unavailable Unavailab le EV (ISADORA), Fiorella BURNS MD Unavailable Unavailab le EV ([place]), Fiorella BURNS MD Unavailable Unavailab le EV (ISAD[place]), Fiorella BURNS MD Unavailable Unavailab le EV ([place]), Fiorella BURNS MD Unavailable Unavailab le EV (ISAD[place]A), M GRANT MD Unavailable Unavailab le EV (ISADORA), M GRANT MD Unavailable Unavailab le EV (ISADORA), M GRANT MD Unavailable Unavailab le EV (ISADORA), M GRANT MD Unavailable Unavailab le EV (ISADORA), M GRANT MD Unavailable Unavailab le EV (ISADORA), M GRANT MD Unavailable Unavailab le EV (ISAD[place]), M GRANT MD Unavailable Unavailab le EV (ISADORA), M GRANT MD Unavailable Unavailab le EV (ISADORA), M GRANT MD Unavailable Unavailab le EV (ISADORA), M GRANT MD Unavailable Unavailab le EV (ISADORA), M GRANT MD Unavailable Unavailab le EV (ISADORA), M GRANT MD Unavailable Unavailab le EV (ISADORA), M GRANT MD Unavailable Unavailab le EV (ISADOR[place]), M GRANT MD Unavailable Unavailab le EV (ISADORA), M GRANT MD Unavailable Unavailab le EV (ISADORA), M GRANT MD Unavailable Unavailab le EV (ISADORA), M GRANT MD Unavailable Unavailab le Re-disclosure Warning The records that you are about to access may contain information from federally-assisted alcohol or drug abuse programs. If such information is present, then the following federally mandated warning applies: This information has been disclosed to you from records protected by federal confidentiality rules (42 CFR part 2). The federal rules prohibit you from making any further disclosure of this information unless further disclosure is expressly permitted by the written consent of the person to whom it pertains or as otherwise permitted by 42 CFR part 2. A general authorization for the release of medical or other information is NOT sufficient for this purpose. The Federal rules restrict any use of the information to criminally investigate or prosecute any alcohol or drug abuse patient.The records that you are about to access may contain highly sensitive health information, the redisclosure of which is protected by Article 27-F of the [facility] Public Health law. If you continue you may have access to information: Regarding HIV / AIDS; Provided by facilities licensed or operated by the [facility] Office of Mental Health; or Provided by the [facility] Office for People With Developmental Disabilities. If such information is present, then the following [facility] mandated warning applies: This information has been disclosed to you from confidential records which are protected by state law. State law prohibits you from making any further disclosure of this information without the specific written consent of the person to whom it pertains, or as otherwise permitted by law. Any unauthorized further disclosure in violation of state law may result in a fine or snf sentence or both. A general authorization for the release of medical or other information is NOT sufficient authorization for further disc losure. Family History Family Member Name Family Member Gender Family Member Status Date o f Status Description Data Source(s) Unknown Unknown Problem [facility] ([employer]) Unknown Female Problem [facility] ([facility], ) Encounters Encounter Providers Location Date Indications Data Source(s ) Unknown [address] [facility] [address] 08/18/2020 12:00:00 AM EST [email or web address] ([facility]) Outpatient Attender: Brandin Grimes 1 02:45:00 PM EDT [facility] ([facility] ) Attender: GRANT TUCKER ([place]) MDReferrer: Cammie Humphries MD 02/13/2020 08:20:07 PM EDT [facility] Attender: GRANT TUCKER ([place]) MDReferrer: Cammie Humphries MD 02/13/2020 08:20:07 PM EDT [facility] Outpatient Attender: Brandin Grimes 0 01/27/2020 03:00:00 PM EDT [facility] ([facility] ) Outpatient Referrer: GRANT TUCKER MD ([place]) 0 08:10:00 AM EDT [facility] Outpatient Referrer: GRANT TUCKER MD ([place]) 0 08:05:00 AM EDT [facility] Outpatient Referrer: GRANT TUCKER MD ([place]) 0 08:02:00 AM EDT [facility] Outpatient Referrer: GRANT TUCKER MD ([place]) 0 01:46:00 PM EDT [facility] Outpatient Attender: Brandin Grimes 0 11/22/2019 02:30:00 PM EDT [facility] ([facility] ) Outpatient Referrer: [id number] NRI 11/03/2019 11:04:00 AM EDT [facility] Attender: GRANT CABRERA) MDReferrer: Cammie Humphries MD 10/18/2019 08:20:03 PM EDT [facility] Attender: GRANT CABRERA) MDReferrer: Cammie Humphries MD 10/18/2019 08:20:03 PM EDT [facility] Attender: GRANT CABRERA) MDReferrer: Cammie Humphries MD 09/18/2019 08:20:02 PM EST [facility] Attender: GRANT CABRERA) MDReferrer: Cammie Humphries MD 09/18/2019 08:20:02 PM EST [facility] Outpatient Attender: Brandin Grimes 0 09/12/2019 09:20:00 AM EST [facility] ([facility] ) Outpatient Referrer: [id number] NRI 09/11/2019 10:16:00 AM EST [facility] Outpatient Referrer: [id number] NR 08/29/2019 03:40:00 PM EST [facility]patient Attender: Ok Krishnan aneudy: Thaddeus Roberto MDAdmitter: Ok Hester MD [id number] 08/26/2019 04:01:00 PM EST - 09/03/2019 10:42:00 AM EST [facility] Patient discharged. Medications Medication Brand Name Start Date Product Form Dose Route Admi nistrative Instructions Pharmacy Instructions Status Indications Reaction Description Data Source(s) 500 mg 08/16/2020 12:00:00 AM EST tablet 5 TAKE ONE TABLET BY MOUTH EVERY DAY FOR 5 DAYS TAKE ONE TABLET BY MOUTH EVERY DAY FOR 5 DAYS SOLD: 08/16/2020 [facility] Esomeprazole 40 MG Delayed Release Oral Capsule ESOMEPRAZOLE MAGNESIUM 07/21/2020 12:00:00 AM EST capsule,delayed release(DR/EC) 60 TAKE ONE CAPSULE BY MOUTH TWICE A DAY TAKE ONE CAPSULE BY MOUTH TWICE A DAY SOLD: 07/23/2020 [facility] 1,000 mcg 07/17/2020 12:00:00 AM EST tablet 90 TAKE ONE TABLET BY MOUTH EVERY DAY TAKE ONE TABLET BY MOUTH EVERY DAY SOLD: 07/18/2020 [facility] 10 mg 07/07/2020 12:00:00 AM EST tablet 120 TAKE ONE TABLET BY MOUTH FOUR TIMES A DAY PRIOR TO MEALS AND AT BEDTIME TAKE ONE TABLET BY MOUTH FOUR TIMES A DAY PRIOR TO MEALS AND AT BEDTIME SOLD: 07/07/2020 [facility] 10 mg 07/07/2020 12:00:00 AM EST tablet 120 TAKE ONE TABLET BY MOUTH FOUR TIMES A DAY PRIOR TO MEALS AND AT BEDTIME TAKE ONE TABLET BY MOUTH FOUR TIMES A DAY PRIOR TO MEALS AND AT BEDTIME SOLD: 08/16/2020 [facility] 10 mg 06/23/2020 12:00:00 AM EST tablet 20 TAKE ONE TABLET BY MOUTH EVERY 6 HOURS NEEDED FOR NAUSEA TAKE ONE TABLET BY MOUTH EVERY 6 HOURS A S NEEDED FOR NAUSEA SOLD: 06/23/2020 [facility] 1 gram 05/18/2020 12:00:00 AM EDT tablet 120 TAKE ONE TABLET BY MOUTH FOUR TIMES A DAY NEEDED TAKE ONE TABLET BY MOUTH FOUR TIMES A DAY NEEDED SO LD: 05/23/2020 [facility] 1 gram 05/18/2020 12:00:00 AM EDT tablet 120 TAKE ONE TABLET BY MOUTH FOUR TIMES A DAY NEEDED TAKE ONE TABLET BY MOUTH FOUR TIMES A DAY NEEDED SO LD: 06/23/2020 [facility] 1 gram 05/18/2020 12:00:00 AM EDT tablet 120 TAKE ONE TABLET BY MOUTH FOUR TIMES A DAY NEEDED TAKE ONE TABLET BY MOUTH FOUR TIMES A DAY NEEDED SO LD: 07/23/2020 [facility] 50 mcg (2,000 unit) 04/25/2020 12:00:00 AM EDT tablet 90 TAKE ONE TABLET BY MOUTH ONCE DAILY TAKE ONE TABLET BY MOUTH ONCE DAILY SOLD: 07/23/2020 [facility] 50 mcg (2,000 unit) 04/25/2020 12:00:00 AM EDT tablet 90 TAKE ONE TABLET BY MOUTH ONCE DAILY TAKE ONE TABLET BY MOUTH ONCE DAILY SOLD: 04/25/2020 [facility] 1 gram 02/19/2020 12:00:00 AM EDT tablet 120 TAKE ONE TABLET BY MOUTH FOUR TIMES A DAY NEEDED TAKE ONE TABLET BY MOUTH FOUR TIMES A DAY NEEDED SO LD: 02/21/2020 [facility] 1 gram 02/19/2020 12:00:00 AM EDT tablet 120 TAKE ONE TABLET BY MOUTH FOUR TIMES A DAY NEEDED TAKE ONE TABLET BY MOUTH FOUR TIMES A DAY NEEDED SO LD: 03/25/2020 [facility] 1 gram 02/19/2020 12:00:00 AM EDT tablet 120 TAKE ONE TABLET BY MOUTH FOUR TIMES A DAY NEEDED TAKE ONE TABLET BY MOUTH FOUR TIMES A DAY NEEDED SO LD: 04/21/2020 [facility] 1 gram 01/27/2020 12:00:00 AM EDT tablet 120 TAKE ONE TABLET BY MOUTH THREE TIMES A DAY 1HOUR BEFORE MEALS AND AT BEDTIME TAKE ONE TABLET BY MOUTH THREE TIMES A DAY 1HOUR BEFORE MEALS AND AT BEDTIME SOLD: 01/27/2020 [facility] 500 mg 01/27/2020 12:00:00 AM EDT tablet 180 TAKE ONE TABLET BY MOUTH EVERY MORNING AND 2 TABLETS AT SUPPER TAKE ONE TABLET BY MOUTH EVERY MORNING A ND 2 TABLETS AT SUPPER SOLD: 03/25/2020 [facility] 4 mg 01/27/2020 12:00:00 AM EDT tablet 30 TAKE ONE TABLET BY MOUTH EVERY 6 HOURS NEEDED FOR FOR NAUSEA AND VOMITING TAKE ONE TABLET BY MOUTH EVERY 6 HOURS NEEDED FOR FOR NAUSEA AND VOMITING SOLD: 01/27/2020 [facility] Sucralfate 1000 MG Oral Tablet Sucralfate 01/27/2020 12:00:00 AM EDT ORAL active [facility] ([facility]) 500 mg 01/27/2020 12:00:00 AM EDT tablet 180 TAKE ONE TABLET BY MOUTH EVERY MORNING AND 2 TABLETS AT SUPPER TAKE ONE TABLET BY MOUTH EVERY MORNING A ND 2 TABLETS AT SUPPER SOLD: 01/27/2020 [facility] Ondansetron 4 MG Oral Tablet Ondansetron HCL 01/27/2020 12:00:00 AM EDT active [facility] ([facility]) Metformin hydrochloride 500 MG Oral Tablet METFORMIN HCL 01/27/2020 12:00:00 AM EDT tablet 180 TAKE ONE TABLET BY MOUTH ROSHAN RY MORNING AND 2 TABLETS AT SUPPER TAKE ONE TABLET BY MOUTH EVERY MORNING AND 2 TABLETS AT SUPPER SOLD: 05/23/2020 [facility] 500 mg 01/27/2020 12:00:00 AM EDT tablet 180 TAKE ONE TABLET BY MOUTH EVERY MORNING AND 2 TABLETS AT SUPPER TAKE ONE TABLET BY MOUTH EVERY MORNING A ND 2 TABLETS AT SUPPER SOLD: 07/23/2020 [facility] Esomeprazole 40 MG Delayed Release Oral Capsule ESOMEPRAZOLE MAGNESIUM 01/22/2020 12:00:00 AM EDT capsule,delayed release(DR/EC) 90 TAKE ONE CAPSULE BY MOUTH EVERY DAY WHILE ON PREDNISONE TAKE ONE CAPSULE BY MOUTH EVERY DAY ARELI Baig ON PREDNISONE SOLD: 04/25/2020 [facility] 40 mg 01/22/2020 12:00:00 AM EDT capsule,delayed release (DR/EC) 90 TAKE ONE CAPSULE BY MOUTH EVERY DAY WHILE ON PREDNISONE TAKE ONE CAPSULE BY MOUTH EVERY DAY WHILE ON PREDNISONE SOLD: 01/27/2020 [facility] 40 mg 12/31/2019 12:00:00 AM EDT capsule,delayed release (DR/EC) 30 TAKE ONE CAPSULE BY MOUTH EVERY DAY WHILE ON PREDNISONE TAKE ONE CAPSULE BY MOUTH EVERY DAY WHILE ON PREDNISONE SOLD: 12/31/2019 [facility] Esomeprazole 40 MG Delayed Release Oral Capsule Esomeprazole Magnesium 12/31/2019 12:00:00 AM EDT ORAL active [facility] ([facility]) 2.5 mg 12/03/2019 12:00:00 AM EDT tablet 90 TAKE ONE TABLET BY MOUTH EVERY DAY NEEDED TAKE ONE TABLET BY MOUTH EVERY DAY NEEDED SOLD: 12/05/2019 [facility] 0.25 mg or 0.5 mg(2 mg/1.5 mL) 11/23/2019 12:00:00 AM EDT pe n injector 4 NJECT 0.25MG WEEKLY FOR 4 WEEKS, THEN INJECT 0.5MG WEEKLY NJECT 0.25MG WEEKLY FOR 4 WEEKS, THEN INJECT 0.5MG WEEKLY SOLD: 02/21/2020 [facility] 0.25 mg or 0.5 mg(2 mg/1.5 mL) 11/23/2019 12:00:00 AM EDT pe n injector 4 NJECT 0.25MG WEEKLY FOR 4 WEEKS, THEN INJECT 0.5MG WEEKLY NJECT 0.25MG WEEKLY FOR 4 WEEKS, THEN INJECT 0.5MG WEEKLY SOLD: 08/19/2020 [facility] 0.25 mg or 0.5 mg(2 mg/1.5 mL) 11/23/2019 12:00:00 AM EDT pe n injector 4 NJECT 0.25MG WEEKLY FOR 4 WEEKS, THEN INJECT 0.5MG WEEKLY NJECT 0.25MG WEEKLY FOR 4 WEEKS, THEN INJECT 0.5MG WEEKLY SOLD: 05/23/2020 [facility] 0.25 mg or 0.5 mg(2 mg/1.5 mL) 11/23/2019 12:00:00 AM EDT pe n injector 4 NJECT 0.25MG WEEKLY FOR 4 WEEKS, THEN INJECT 0.5MG WEEKLY NJECT 0.25MG WEEKLY FOR 4 WEEKS, THEN INJECT 0.5MG WEEKLY SOLD: 11/23/2019 [facility] Ozempic (0.25 Or 0.5 MG/Dose) Ozempic (0.25 Or 0.5 MG/Dose) 11/22/2019 12:00:00 AM EDT active [facility] ([facility]) 125 mg 11/18/2019 12:00:00 AM EDT capsule 56 TAKE 1 CAPSULE BY MOUTH EVERY 6 HOURS TAKE 1 CAPSULE BY MOUTH EVERY 6 HOURS SOLD: 11/19/2019 [facility] 800-160 mg 11/08/2019 12:00:00 AM EDT tablet 10 TAKE ONE TABLET BY MOUTH TWICE A DAY TAKE ONE TABLET BY MOUTH TWICE A DAY SOLD: 11/08/2019 [facility] 1 mg 10/18/2019 12:00:00 AM EDT tablet 100 TAKE FOUR TABLETS BY MOUTH EVERY DAY FOR 2 WEEKS THEN 3 TABLETS DAILY FOR 1-2 WEEKS THEN 2 TABLETS DAILY THEN 1 TABLET DAILY TAKE FOUR TABLETS BY MOUTH EVERY DAY FOR 2 WEEKS THEN 3 TABLETS DAILY FOR 1-2 WEEKS THEN 2 TABLETS DAILY THEN 1 TABLET DAILY SOLD: 10/18/2019 [facility] 1 mg 10/18/2019 12:00:00 AM EDT tablet 100 TAKE FOUR TABLETS BY MOUTH EVERY DAY FOR 2 WEEKS THEN 3 TABLETS DAILY FOR 1-2 WEEKS THEN 2 TABLETS DAILY THEN 1 TABLET DAILY TAKE FOUR TABLETS BY MOUTH EVERY DAY FOR 2 WEEKS THEN 3 TABLETS DAILY FOR 1-2 WEEKS THEN 2 TABLETS DAILY THEN 1 TABLET DAILY SOLD: 11/15/2019 [facility] Sulfamethoxazole 800 MG / Trimethoprim 160 MG Oral Tab let Sulfamethoxazole/Trimethoprim DS 09/20/2019 12:00:00 AM EST ORAL completed [facility] ([facility]) 800-160 mg 09/20/2019 12:00:00 AM EST tablet 10 TAKE ONE TABLET BY MOUTH TWICE A DAY FOR 5 DAYS TAKE ONE TABLET BY MOUTH TWICE A DAY FOR 5 DAYS SOLD: 09/20/2019 [facility] NITROFURANTOIN, MACROCRYSTALS 100 MG Oral Capsule Nitrofuran toin Macrocrystal 09/13/2019 12:00:00 AM EST ORAL completed [facility] ([facility]) 100 mg 09/13/2019 12:00:00 AM EST capsule 6 TAKE 1 CAPSULE BY MOUTH TWICE DAILY FOR 3 DAYS TAKE 1 CAPSULE BY MOUTH TWICE DAILY FOR 3 DAYS SOLD: 0 09/13/2019 [facility] Prednisone 10 MG Oral Tablet Prednisone 09/12/2019 12:00:00 AM EST active [facility] ([facility]) Ergocalciferol 2000 UNT Oral Tablet Vitamin D2 09/12/2019 12:00:00 AM EST active [facility] ([facility]) 50 mg 09/05/2019 12:00:00 AM EST tablet 120 TAKE FOUR TABLETS BY MOUTH EVERY DAY TAKE FOUR TABLETS BY MOUTH EVERY DAY SOLD: 11/19/2019 [facility] 50 mg 09/05/2019 12:00:00 AM EST tablet 120 TAKE FOUR TABLETS BY MOUTH EVERY DAY TAKE FOUR TABLETS BY MOUTH EVERY DAY SOLD: 09/11/2019 [facility] 100 mg 09/04/2019 12:00:00 AM EST tablet 7 TAKE ONE TABLET BY MOUTH EVERY DAY FOR 7 DAYS TAKE ONE TABLET BY MOUTH EVERY DAY FOR 7 DAYS SOLD: 09/04/2019 [facility] Prednisone 10 MG Oral Tablet predniSONE (DELTASONE) ta blet 10 mg predniSONE (DELTASONE) tablet 10 mg 09/03/2019 09:00:00 AM EST 10 mg Oral active 10 mg, Oral, Daily, First dose on Mon09/03/19 at 0900 [facility] Medication administered onsite Acetaminophen 325 MG / Hydrocodone Lisa trate 5 MG Oral Tablet HYDROcodone- acetaminophen (NORCO) 5-325 MG per tablet HYDROcodone-acetaminophen (NORCO) 5- 325 MG per tablet 09/03/2019 12:00:00 AM EST 1 {tbl} Oral active Take 1 tablet by mouth every 6 (six) hours as needed for pain Max Daily Amount: 4 tablets [facility] 5-325 mg 09/03/2019 12:00:00 AM EST tablet 5 TAKE ONE TABLET BY MOUTH EVERY 6 HOURS NEEDED FOR PAIN, MAXIMUM DAILY DOSE = 4 TAKE ONE TABLET BY MOUTH EVERY 6 HOURS NEEDED FOR PAIN, MAXIMUM DAILY DOSE = 4 SOLD: 09/03/2019 [facility] potassium chloride SA (K-DUR,KLOR-CON) CR tablet 40 mEq [id number] 09/02/2019 05:00:00 PM EST 40 meq Oral completed 40 mEq, Oral, Once, Mon09/02/19 at 1700, For 1 dose [facility] Medication administered onsite Hydrocortisone 50 MG/ML Injectable Solut ion hydrocortisone sodium succinate (Solu-CORTEF) injection 75 mg hydrocortisone sodium succinate (Solu-CO RTEF) injection 75 mg 09/02/2019 09:00:00 AM EST 75 mg Intravenous aborted 75 mg, Intravenous, Daily, First dose on Mon09/02/19 at 0900, Post-op [facility] Medication administered onsite Acetaminophen 325 MG / Oxycodone Hydroch loride 5 MG Oral Tablet oxyCODONE- acetaminophen (PERCOCET) 5-325 MG 1-2 tablet oxyCODONE-acetaminophen (PERCOCET) 5-325 MG 1-2 tablet 09/02/2019 07:23:48 AM EST Oral active 1-2 tablet, Oral, Every 4 hours PRN, moderate pain (4-6), severe pain (7-10), Starting Mon09/02/19 at 0723, For 7 days [facility] Medication administered onsite Insulin Glargine 100 UNT/ML Injectable S olution [Lantus] insulin glargine (LANTUS) injection 10 Units insulin glargine (LANTUS) injection 10 Units 09/01/2019 09:00:00 PM EST 10 U Subcutaneous active 10 Units, Subcutaneous, Nightly (Lantus), First dose on Mon09/01/19 at 2100
Basal Insulin (Lantus) Adjustments based on AM Blood GlucoseBlood GlucoseAdjustmentLess than 70 mg/dl Nursing to initiate hypoglycemia [id number] to 100 mg/dl Pharmacy to decrease total daily d ose by 20%101 to 200 mg/dl No Change
[facility] Medication administered onsite Saccharomyces boulardii 250 MG Oral Caps ule saccharomyces boulardii (FLORASTOR) capsule 250 mg saccharomyces boulardii (FLORASTOR) capsule 250 mg 01:00:00 PM EST 250 mg Oral active 250 mg, Oral, 2 times daily, First dose on 09/01/19 at 1300
Swallow whole.DO NOT OPEN CAPSULE
[facility] Medication administered onsite potassium chloride SA (K-DUR,KLOR-CON) CR tablet 40 mEq [id number] 9-359-09/01/2019 12:00:00 PM EST 40 meq Oral completed 40 mEq, Oral, Once, 09/01/19 at 1200, For 1 dose [facility] Medication administered onsite pantoprazole 4 MG/ML Injectable Solution pantoprazole (PROTONIX) injection 40 mg pantoprazole (PROTONIX) injection 40 mg 09/01/2019 10:00:00 AM EST 40 mg Intravenous active Stress Ulcer ProphylaxisGast roesophageal Reflux Disease 40 mg, Intravenous, 2 times daily, Indic ations: Gastroesophageal Reflux Disease, Stress Ulcer Prophylaxis, First dose on 09/01/19 at 1000
For IV Push - Dilute with 10 mL of 0.9% NaCl and push over 2 minutes.
[facility] Stress Ulcer Prophylaxis Gastroesophageal Reflux Disease Medication administered onsite sodium chloride 0.9% (NS) bolus 1,000 mL [id number] 09/01/2019 10:00:00 AM EST 1000 mL Intravenous completed 1, 000 mL, Intravenous, Administer over 2 Hours, Once, 09/01/19 at 1000, For 1 dose [facility] Medication administered onsite Hydrocortisone 50 MG/ML Injectable Solut ion hydrocortisone sodium succinate (Solu-CORTEF) injection 75 mg hydrocortisone sodium succinate (Solu-CO RTEF) injection 75 mg 09/01/2019 09:00:00 AM EST 75 mg Intravenous aborted 75 mg, Intravenous, Daily, First dose on 09/01/19 at 0900, Post-op [facility] Medication administered onsite potassium chloride SA (K-DUR,KLOR-CON) CR tablet 40 mEq 5528 [id number]/31/2019 11:00:00 AM EST 40 meq Oral completed 40 mEq, Oral, Once, 08/31/19 at 1100, For 1 dose [facility] Medication administered onsite Albuterol 0.83 MG/ML Inhalant Solution a lbuterol (PROVENTIL) nebulizer solution 2.5 mg albuterol (PROVENTIL) nebulizer solution 2.5 mg 2019 09:23:40 PM EST 2.5 mg active 2.5 mg, Nebulization, Every 2 hour PRN, wheezing, shortness of breath, Starting Keri 08/29/19 at 2123 [facility] Medication administered onsite morphine FIELD ATTENDANT 1 mg/mL 08/29/2019 07:00:00 PM EST Intraven ous aborted Intravenous, Continuous, Starting Mon08/29/19 at 1900, For 138 hours, Post-op [facility] Medication administered onsite Hydrocortisone 50 MG/ML Injectable Solut ion hydrocortisone sodium succinate (Solu-CORTEF) injection 100 mg hydrocortisone sodium succinate (Solu-CO RTEF) injection 100 mg 08/29/2019 09:00:00 AM EST 100 mg Intravenous aborted 100 mg, Intravenous, Daily, First dose on Mon08/29/19 at 0900, Post-op [facility] Medication administered onsite Hydrochlorothiazide 12.5 MG Oral Tablet hydrochlorothiazide (HYDRODIURIL) tablet 12.5 mg hydrochlorothiazide (HYDRODIURIL) tablet 12.5 mg 08/29 09:00:00 AM EST 12.5 mg Oral active 12.5 mg, Oral, Daily, First dose on Mon08/29/19 at 0900, Post-op
Hold for SBP <120
[facility] Medication administered onsite Famotidine (PEPCID) injection 20 mg [id number] 08/28/2019 09:00:0 0 PM EST 20 mg Intravenous aborted Stress Ulcer Pr ophylaxisGastroesophageal Reflux Disease 20 mg, Intravenous, 2 times daily, First dose on Mon08/28/19 at 2100, Post-op
For IV Push - Dilute with 10 mL of 0.9% NaCl and push over 2 minutes.
[facility] Stress Ulcer Prophylaxis Gastroesophageal Reflux Disease Medication administered onsite morphine FIELD ATTENDANT 1 mg/mL 08/28/2019 05:00:00 PM EST Intraven ous aborted Intravenous, Continuous, Starting Mon08/28/19 at 1700, For 165 hours, Post-op [facility] Medication administered onsite morphine 1 mg/ml FIELD ATTENDANT bolus 4 mg [id number] 08/28/2019 03:00:[address] 4 mg Intravenous completed 4 mg, Intrave nous, Once, Mon08/28/19 at 1500, For 1 dose [facility] Medication administered onsite Metronidazole 5 MG/ML Injectable Solution metroNIDAZOL E (FLAGYL) IVPB 500 mg metroNIDAZOLE (FLAGYL) IVPB 500 mg 08/28/2019 03:00:00 PM EST 50 0 mg Intravenous completed Perioperative Pharmacoprophylaxis 500 mg, Intravenous, Administer over 60 Minutes, Every 8 hours (relative), First dose on Mon08/28/19 at 1500, For 24 hours, Post-op [facility] Perioperative Pharmacoprophylaxis Medication administered onsite Acetaminophen 325 MG Oral Tablet acetaminophen (TYLENO L) 325 MG tablet 650 mg acetaminophen (TYLENOL) 325 MG tablet 650 mg 08/28/2019 02:00:00 PM EST 650 mg Oral active 650 mg, Or al, Every 6 hours (relative), First dose on Mon08/28/19 at 1400, Post-op
"Maximum dose of acetaminophen is 4,000 mg from all sources in 24 hours."
[facility] Medication administered onsite cefazolin (ANCEF) injection 2 g 08/28/2019 02:00:00 PM EST 2 g Intravenous completed Perioperative Pharmacoprophylaxis 2 g, Intravenous, Administer over 6 Minutes, Every 8 hours (relative), First dose on Mon08/28/19 at 1400, For 24 hours, Post-op
RN may administer IV push or infuse this medication through syringe adapter set ref [id number]. Flush line after use
[facility] Perioperative Pharmacoprophylaxis Medication administered onsite dextrose 5 % and sodium chloride 0.45 % with KCl 20 mEq/L in fusion [id number] 08/28/2019 02:00:00 PM EST Intravenous active at 75 mL/hr, Intravenous, Continuous, Starting Mon08/28/19 at 1400, Post-op
This is a "Triggered Filled Infusion" and is automatically sent based on the current rate documented in the flow sheets
[facility] Medication administered onsite morphine FIELD ATTENDANT 1 mg/mL 08/28/2019 02:00:00 PM EST Intraven ous aborted Intravenous, Continuous, Starting Mon08/28/19 at 1400, For 7 days, Post-op [facility] Medication administered onsite 1 ML Ketorolac Tromethamine 15 MG/ML Car tridge ketorolac (TORADOL) injection 15 mg ketorolac (TORADOL) injection 15 mg 08/28/2019 02:00:00 PM EST 15 mg Intravenous completed 15 mg, Intrav enous, Once, Mon08/28/19 at 1400, For 1 dose [facility] Medication administered onsite alvimopan 12 MG Oral Capsule alvimopan (ENTEREG) capsu le 12 mg alvimopan (ENTEREG) capsule 12 mg 08/28/2019 02:00:00 PM EST 12 mg Oral aborted 12 mg, Oral, 2 times daily, First dose on Mon08/28/19 at 1400, Post-op
Take with water. Suggested administration time: 30 minutes to 5 hours prior to surgery.
Patient does NOT have a bowel obstruction or did not have surgery for a bowel obstruction: Yes
Patient is having partial large or small bowel resection surgery. Bowel surgery is the only acceptable use: Yes
Patient did NOT receive chronic opioid (>7 days) treatment prior to surgery: No [facility] Medication administered onsite Regular Insulin, Human 100 UNT/ML Inject able Solution insulin regular (HumuLIN,NovoLIN) injection 7 Units insulin regular (HumuLIN,NovoLIN) inject ion 7 Units 08/28/2019 01:00:00 PM EST 7 U Intravenous compl eted 7 Units, Intravenous, Once, Mon08/28/19 at 1300, For 1 dose, PACU (only) [facility] Medication administered onsite HYDROmorphone (DILAUDID) injection 0.5 mg [id number] 08/28/2019 11:52:54 AM EST 0.5 mg Intravenous aborted 0.5 mg, Intravenous, Every 5 min PRN, severe pain (7-10), Starting Mon08/28/19 at 1152, For 5 doses, PACU (only) [facility] Medication administered onsite fentaNYL Citrate (PF) (SUBLIMAZE) injection 25 mcg [id number] 08/28/2019 11:52:54 AM EST 25 ug Intravenous aborted 25 mcg, Intravenous, Every 5 min PRN, moderate pain (4 to 6), Starting Mon08/28/19 at 1152, For 5 doses, PACU (only) [facility] Medication administered onsite alvimopan 12 MG Oral Capsule alvimopan (ENTEREG) capsu le 12 mg alvimopan (ENTEREG) capsule 12 mg 08/28/2019 09:00:00 AM EST 12 mg Oral completed 12 mg, Oral, boot lace cutter machine, Mon08/28/19 at 090 0, For 1 dose, Pre-op
Take with water. Suggested administration time: 30 minutes to 5 hours prior to surgery.
Patient does NOT have a bowel obstruction or did not have surgery for a bowel obstruction: No
Patient is having partial large or small bowel resection surgery. Bowel surgery is the only acceptable use: Yes
Patient did NOT receive chronic opioid (>7 days) treatment prior to surgery: No [facility] Medication administered onsite Hydrocortisone 20 MG Oral Tablet hydrocortisone (RAHEEL F) tablet 100 mg hydrocortisone (CORTEF) tablet 100 mg 08/28/2019 06:00:00 AM EST 10 0 mg Oral completed 100 mg, Oral, Once, Mon at 0600, For 1 dose [facility] Medication administered onsite Insulin Glargine 100 UNT/ML Injectable S olution [Lantus] insulin glargine (LANTUS) injection 5 Units insulin glargine (LANTUS) injection 5 Units 08/27/2019 10:00:00 PM EST 5 U Subcutaneous aborted 5 Units, Subcutaneous, Nightly (Lantus), First dose on Mon08/27/19 at 2200
Basal Insulin (Lantus) Adjustments based on AM Blood GlucoseBlood GlucoseAdjustmentLess than 70 mg/dl Nursing to initiate hypoglycemia [id number] to 100 mg/dl Pharmacy to decrease total daily d ose by 20%101 to 200 mg/dl No Change
[facility] Medication administered onsite Insulin Lispro 100 UNT/ML Injectable Tracee ution insulin lispro (HumaLOG) injection 1-12 Units insulin lispro (HumaLOG) injection 1-12 Units 08/27/19 05:00:00 PM EST Subcutaneous active 1-1 2 Units, Subcutaneous, MEALSS, First dose on Mon08/27/19 at 1700
AVERAGE 6 Units Nutritional and Correction Insulin ScaleBlood Glucose (mg/dl) <70 start hypoglycemia protocolGlucoseEats >=50% Eats <50%Eats Nothing (mg/dl) of meal of mealor [id number] units 2 units 0 [id number]- 1706 units 3 units 0 -9563 units 4 units 1 [id number]- 2708 units 5 units 2 [id number] units 6 units 3 [id number]- [id number] units 7 units 4 [id number] units 8 units 5 units>420 call MD12 units 9 units 6 unitsTest glucose within 30 minutes of insulin administration.Administer insulin within 15 minutes (before or after) of the patient starting to eat.For patients that are NPO, use theNPO (correction) scale to cover POC glucose at 08:00, 12:00, 17:00.
[facility] Medication administered onsite Hydrochlorothiazide 12.5 MG Oral Tablet hydrochlorothiazide (HYDRODIURIL) tablet 12.5 mg hydrochlorothiazide (HYDRODIURIL) tablet 12.5 mg 08/27 04:00:00 PM EST 12.5 mg Oral aborted 12.5 mg, Oral, Daily, First dose on Mon08/27/19 at 1600
Hold for SBP <120
[facility] Medication administered onsite Prednisone 10 MG Oral Tablet predniSONE (DELTASONE) ta blet 10 mg predniSONE (DELTASONE) tablet 10 mg 08/27/2019 04:00:00 PM EST 10 mg Oral aborted 10 mg, Oral, Daily, First dose on Mon08/27/19 at 1600 [facility] Medication administered onsite pantoprazole 40 MG Delayed Release Oral Tablet pantoprazole (PROTONIX) EC tablet 40 mg pantoprazole (PROTONIX) EC tablet 40 mg 08/27/2019 04:00:[address] 40 mg Oral aborted Gastroesophageal Reflux Diseas e 40 mg, Oral, Daily, Indications: Gastroesophageal Reflux Disease, First dose on Mon08/27/19 at 1600 [facility] Gastroesophageal Reflux Disease Medication administered onsite Dextromethorphan Hydrobromide 2 MG/ML / Guaifenesin 20 MG/ML Oral Solution guaifenesin-dextromethorphan (ROBITUSSIN DM) 100-10 MG/5ML syrup 5 mL guaifenesin-dextromethorphan (ROBITUSSIN DM) 100-10 MG/5ML syrup 5 mL 08/27/2019 03:47:40 PM EST 5 mL Oral active 5 mL, Oral, Every 4 hours PRN, other, cough, congestion, Starting Mon08/27/19 at 1547 [facility] Medication administered onsite hydrocortisone (CORTEF) tablet 75 mg 08/27/2019 03:00:00 PM EST 75 mg Oral completed 75 mg, Oral, Once, Mon at 1500, For 1 dose [facility] Medication administered onsite sodium chloride 0.9% (NS) infusion 1237-6540-25 08/27/2019 02:00:00 P M EST Intravenous aborted at 125 mL/hr, Intravenous, Continuous, Starting Mon08/27/19 at 1400 [facility] Medication administered onsite fluticasone (FLONASE) 50 MCG/ACT nasal spray 1 spray [id number] 08/27/2019 01:43:36 PM EST 1 {spray} Nasal active 1 spray, Nasal, Daily PRN, congestion, allergies, Starting Mon08/27/19 at 1343 [facility] Medication administered onsite Calcium Carbonate 500 MG Chewable Tablet calcium carbonate (TUMS) chewable tablet 1,500 mg calcium carbonate (TUMS) chewable tablet 1,500 mg 08/08 01:42:30 PM EST 1500 mg Oral active 1,500 mg, Oral, Daily PRN, heartburn, Starting Mon08/27/19 at 1342 [facility] Medication administered onsite Metronidazole 5 MG/ML Injectable Solution metroNIDAZOL E (FLAGYL) IVPB 500 mg metroNIDAZOLE (FLAGYL) IVPB 500 mg 08/27/2019 11:00:00 AM EST 50 0 mg Intravenous completed Perioperative Pharmacoprophylaxis 500 mg, Intravenous, Administer over 60 Minutes, boot lace cutter machine to O.R., Mon08/27/19 at 1100, For 1 dose [facility] Perioperative Pharmacoprophylaxis Medication administered onsite Insulin Lispro 100 UNT/ML Injectable Tracee ution insulin lispro (HumaLOG) injection 1-6 Units insulin lispro (HumaLOG) injection 1-6 Units 0 08:00:00 AM EST Subcutaneous aborted 1-6 Units, Subcutaneous, MEALSS, First dose on Mon08/27/19 at 0800
Frail 3 units Nutritional and Correction Insulin ScaleBlood Glucose (mg/dl) <70 start hypoglycemiaprotocolGlucose Eats >=50% Eats <50%Eats Nothing (mg/dl) of meal of mealor [id number] units 1 units 0 [id number]- 1703 units 2 units 0 -4991 units 2 units 1 - 2704 units 3 units 1 [id number] units 3 units 2 - 3705 units 4 units 2 [id number] units 4 units 3 units>420 call MD6 units 5 units 3 unitsTest glucose within 30 minutes of insulin administration.Administer insulin within 15 minutes (before or after) of the patient starting to eat.For patients that are NPO, use theNPO (correction) scale to cover POC glucose at 08:00, 12:00, 17:00.
[facility] Medication administered onsite heparin (porcine) injection 5,000 Units [id number] 08/26/19 10:00:00 PM EST 5000 U Subcutaneous active 5,000 Units , Subcutaneous, Every 8 hours (scheduled), First dose on Mon08/26/19 at 2200
If platelet count is less than 100,000 or hematocrit is less than 25, or if there is a 5 point decrease in hematocrit, do not give the dose and call physician/designee.
[facility] Medication administered onsite normal saline flush 0.9 % injection 3 mL [id number] 08/26/2019 10:00:00 PM EST 3 mL Intravenous active 3 mL , Intravenous, Every 8 hours (scheduled), First dose on Mon08/26/19 at 2200
flush per protocol, D/C Main IV fluid if appropriate
[facility] Medication administered onsite Methylprednisolone 40 MG/ML Injectable S olution methylPREDNISolone sodium succinate (Solu-MEDROL) injection 40 mg methylPREDNISolone sodium succinate (Solu-MEDROL) injection 40 mg 08/26/2019 09:00:00 PM EST 40 mg I ntravenous aborted 40 mg, Intraveno us, 2 times daily, First dose on Mon08/26/19 at 2100 [facility] Medication administered onsite pantoprazole 4 MG/ML Injectable Solution pantoprazole (PROTONIX) injection 40 mg pantoprazole (PROTONIX) injection 40 mg 08/26/2019 08:00:00 PM EST 40 mg Intravenous aborted Gastroesophageal Reflux Disease 40 mg, Intravenous, Daily, Indications: Gastroesophageal Reflux Disease, First dose on Mon08/26/19 at 2000
For IV Push - Dilute with 10 mL of 0.9% NaCl and push over 2 minutes.
[facility] Gastroesophageal Reflux Disease Medication administered onsite dextrose 5 % and sodium chloride 0.9 % infusion [id number] 08/26/2019 07:00:00 PM EST Intravenous aborted at 1 25 mL/hr, Intravenous, Continuous, Starting Mon08/26/19 at 1900 [facility] Medication administered onsite ondansetron (ZOFRAN) injection 4 mg [id number] 08/26/2019 06:22:2 9 PM EST 4 mg Intravenous active 4 mg, In travenous, Every 4 hours PRN, nausea, vomiting, Starting Mon08/26/19 at 1822 [facility] Medication administered onsite Morphine Sulfate (PF) injection 4 mg [id number] 08/26/2019 06:22: 01 PM EST 4 mg Intravenous aborted 4 mg, In travenous, Every 4 hours PRN, severe pain (7-10), Starting Mon08/26/19 at 1822, For 7 days
If PO pain meds are not sufficient for pain control
[facility] Medication administered onsite cefdinir 300 MG Oral Capsule cefdinir (OMNICEF) 300 MG capsule cefdinir (OMNICEF) 300 MG capsule 08/18/2019 12:00:00 AM EST 300 mg Oral aborted Take 300 mg by mouth 2 (two) times a day X 4 days [facility] Esomeprazole 40 MG Delayed Release Oral Capsule [Nexium] Nex ium 07/16/2019 12:00:00 AM EST ORAL active M [facility] ([facility]) Hydrochlorothiazide 25 MG Oral Tablet Hydrochlorothiazide 12:00:00 AM EST ORAL completed [facility] ([facility]) 40 mg 07/16/2019 12:00:00 AM EST capsule,delayed release (DR/EC) 30 TAKE ONE CAPSULE BY MOUTH EVERY DAY WHILE ON PREDNISONE TAKE ONE CAPSULE BY MOUTH EVERY DAY WHILE ON PREDNISONE SOLD: 11/06/2019 [facility] Vitamin B 12 1 MG Oral Tablet Vitamin B-12 07/16/2019 12:00:00 AM EST ORAL active [facility] ([facility]) 25 mg 07/16/2019 12:00:00 AM EST tablet 30 TAKE ONE TABLET BY MOUTH EVERY DAY TAKE ONE TABLET BY MOUTH EVERY DAY SOLD: 11/06/2019 [facility] 1,000 mcg 07/16/2019 12:00:00 AM EST tablet 90 TAKE ONE TABLET BY MOUTH EVERY DAY TAKE ONE TABLET BY MOUTH EVERY DAY SOLD: 01/18/2020 [facility] 1,000 mcg 07/16/2019 12:00:00 AM EST tablet 90 TAKE ONE TABLET BY MOUTH EVERY DAY TAKE ONE TABLET BY MOUTH EVERY DAY SOLD: 04/21/2020 [facility] 25 mg 07/16/2019 12:00:00 AM EST tablet 30 TAKE ONE TABLET BY MOUTH EVERY DAY TAKE ONE TABLET BY MOUTH EVERY DAY SOLD: 09/13/2019 [facility] 40 mg 07/16/2019 12:00:00 AM EST capsule,delayed release (DR/EC) 30 TAKE ONE CAPSULE BY MOUTH EVERY DAY WHILE ON PREDNISONE TAKE ONE CAPSULE BY MOUTH EVERY DAY WHILE ON PREDNISONE SOLD: 07/16/2019 [facility] 25 mg 07/16/2019 12:00:00 AM EST tablet 30 TAKE ONE TABLET BY MOUTH EVERY DAY TAKE ONE TABLET BY MOUTH EVERY DAY SOLD: 07/16/2019 [facility] 1,000 mcg 07/16/2019 12:00:00 AM EST tablet 90 TAKE ONE TABLET BY MOUTH EVERY DAY TAKE ONE TABLET BY MOUTH EVERY DAY SOLD: 10/10/2019 [facility] 40 mg 07/16/2019 12:00:00 AM EST capsule,delayed release (DR/EC) 30 TAKE ONE CAPSULE BY MOUTH EVERY DAY WHILE ON PREDNISONE TAKE ONE CAPSULE BY MOUTH EVERY DAY WHILE ON PREDNISONE SOLD: 08/17/2019 [facility] 40 mg 07/16/2019 12:00:00 AM EST capsule,delayed release (DR/EC) 30 TAKE ONE CAPSULE BY MOUTH EVERY DAY WHILE ON PREDNISONE TAKE ONE CAPSULE BY MOUTH EVERY DAY WHILE ON PREDNISONE SOLD: 09/13/2019 [facility] 25 mg 07/16/2019 12:00:00 AM EST tablet 30 TAKE ONE TABLET BY MOUTH EVERY DAY TAKE ONE TABLET BY MOUTH EVERY DAY SOLD: 10/10/2019 [facility] 40 mg 07/16/2019 12:00:00 AM EST capsule,delayed release (DR/EC) 30 TAKE ONE CAPSULE BY MOUTH EVERY DAY WHILE ON PREDNISONE TAKE ONE CAPSULE BY MOUTH EVERY DAY WHILE ON PREDNISONE SOLD: 10/10/2019 [facility] 25 mg 07/16/2019 12:00:00 AM EST tablet 30 TAKE ONE TABLET BY MOUTH EVERY DAY TAKE ONE TABLET BY MOUTH EVERY DAY SOLD: 08/17/2019 [facility] 40 mg 07/16/2019 12:00:00 AM EST capsule,delayed release (DR/EC) 30 TAKE ONE CAPSULE BY MOUTH EVERY DAY WHILE ON PREDNISONE TAKE ONE CAPSULE BY MOUTH EVERY DAY WHILE ON PREDNISONE SOLD: 12/05/2019 [facility] 1,000 mcg 07/16/2019 12:00:00 AM EST tablet 90 TAKE ONE TABLET BY MOUTH EVERY DAY TAKE ONE TABLET BY MOUTH EVERY DAY SOLD: 07/16/2019 [facility] 10 mg 07/13/2019 12:00:00 AM EST tablet 90 TAKE THREE TABLETS BY MOUTH EVERY DAY TAKE THREE TABLETS BY MOUTH EVERY DAY SOLD: 07/16/2019 [facility] 10 mg 07/13/2019 12:00:00 AM EST tablet 90 TAKE THREE TABLETS BY MOUTH EVERY DAY TAKE THREE TABLETS BY MOUTH EVERY DAY SOLD: 08/17/2019 [facility] 2.5 mg 06/15/2019 12:00:00 AM EST tablet 30 TAKE ONE TABLET BY MOUTH EVERY DAY NEEDED TAKE ONE TABLET BY MOUTH EVERY DAY NEEDED SOLD: 07/13/2019 [facility] 2.5 mg 06/15/2019 12:00:00 AM EST tablet 30 TAKE ONE TABLET BY MOUTH EVERY DAY NEEDED TAKE ONE TABLET BY MOUTH EVERY DAY NEEDED SOLD: 09/13/2019 [facility] 2.5 mg 06/15/2019 12:00:00 AM EST tablet 30 TAKE ONE TABLET BY MOUTH EVERY DAY NEEDED TAKE ONE TABLET BY MOUTH EVERY DAY NEEDED SOLD: 10/10/2019 [facility] 2.5 mg 06/15/2019 12:00:00 AM EST tablet 30 TAKE ONE TABLET BY MOUTH EVERY DAY NEEDED TAKE ONE TABLET BY MOUTH EVERY DAY NEEDED SOLD: 11/06/2019 [facility] 2.5 mg 06/15/2019 12:00:00 AM EST tablet 30 TAKE ONE TABLET BY MOUTH EVERY DAY NEEDED TAKE ONE TABLET BY MOUTH EVERY DAY NEEDED SOLD: 08/17/2019 [facility] 500 mg 06/05/2019 12:00:00 AM EDT tablet 90 TAKE ONE TABLET BY MOUTH EVERY MORNING AND 2 TABLETS AT SUPPER TAKE ONE TABLET BY MOUTH EVERY MORNING A ND 2 TABLETS AT SUPPER SOLD: 08/17/2019 [facility] 500 mg 06/05/2019 12:00:00 AM EDT tablet 90 TAKE ONE TABLET BY MOUTH EVERY MORNING AND 2 TABLETS AT SUPPER TAKE ONE TABLET BY MOUTH EVERY MORNING A ND 2 TABLETS AT SUPPER SOLD: 10/10/2019 [facility] 500 mg 06/05/2019 12:00:00 AM EDT tablet 90 TAKE ONE TABLET BY MOUTH EVERY MORNING AND 2 TABLETS AT SUPPER TAKE ONE TABLET BY MOUTH EVERY MORNING A ND 2 TABLETS AT SUPPER SOLD: 07/13/2019 [facility] 500 mg 06/05/2019 12:00:00 AM EDT tablet 90 TAKE ONE TABLET BY MOUTH EVERY MORNING AND 2 TABLETS AT SUPPER TAKE ONE TABLET BY MOUTH EVERY MORNING A ND 2 TABLETS AT SUPPER SOLD: 09/13/2019 [facility] 500 mg 06/05/2019 12:00:00 AM EDT tablet 90 TAKE ONE TABLET BY MOUTH EVERY MORNING AND 2 TABLETS AT SUPPER TAKE ONE TABLET BY MOUTH EVERY MORNING A ND 2 TABLETS AT SUPPER SOLD: 12/05/2019 [facility] 500 mg 06/05/2019 12:00:00 AM EDT tablet 90 TAKE ONE TABLET BY MOUTH EVERY MORNING AND 2 TABLETS AT SUPPER TAKE ONE TABLET BY MOUTH EVERY MORNING A ND 2 TABLETS AT SUPPER SOLD: 12/31/2019 [facility] 500 mg 06/05/2019 12:00:00 AM EDT tablet 90 TAKE ONE TABLET BY MOUTH EVERY MORNING AND 2 TABLETS AT SUPPER TAKE ONE TABLET BY MOUTH EVERY MORNING A ND 2 TABLETS AT SUPPER SOLD: 11/06/2019 [facility] Prednisone 20 MG Oral Tablet Prednisone 06/04/2019 12:00:00 AM EDT completed [facility] ([facility]) 10 mg 05/18/2019 12:00:00 AM EDT capsule 200 TAKE 1-2 CAPSULES BY MOUTH FOUR TIMES A DAY NEEDED TAKE 1-2 CAPSULES BY MOUTH FOUR TIMES A DAY NEEDED SOLD: 07/13/2019 [facility] Probiotic Product (PROBIOTIC DAILY PO) Oral aborted Take by mouth [facility] Ergocalciferol 88055 UNT Oral Capsule vi tamin D, Ergocalciferol, 01831 UNITS CAPS vitamin D, Ergocalciferol, 18189 UNITS CAPS 1 {capsule} Oral aborted Take 1 capsule by mouth once a w [place] [facility] certolizumab pegol 200 MG Injection Certolizumab Pegol (CIMZIA) 2 X 200 MG KIT Certolizumab Pegol (CIMZIA) 2 X 200 MG KIT Subcutaneous aborted Inject under the skin every 30 (thirty) days [facility] Multiple Vitamin (MULTIVITAMIN) tablet [id number] 1 {t bl} Oral aborted Take 1 tablet by mouth [facility] Insurance Providers Payer name Policy type / Coverage type Policy ID Covered libertarian ID Covered libertarian's relationship to ghotra Policy Ghotra Plan Information [place] P[place] 302/307 [id number] SP [id number] [facility] [id number] [facility] [id number] 0 [id number] [facility] [id number] 0 [id number] [facility] PPO POS [id number] [facility] [id number] 0 [id number] EXCELLUS BCBS B [id number] S VYS EXCELLUS BCBS [id number] Adrienne VYS [id number] EXCELLUS BCBS 03 BCBS [place] PPO 302/307 [id number] SP [id number] [employer] O PPO POS [id number] [employer] HEA [id number] S [id number] ANSI-Commercial [id number] ANSI-Commercial [id number] [place]BS [place] PPO 302/307 [id number] SP [id number] BS iFACETS [facility] Part B [id number] Self V [id number] [facility] [place] Commercial [id number] Self [id number] ANSI-Commercial [id number] ANSI-Commercial [id number] BS iFACETS Commercial [id number] Self [id number] [facility] [place] Commercial [id number] Self [id number] EXCELLUS BCBS PI PI MVP [id number] Adrienne [id number] MVP PREMIER EXCHANGE [id number] Adrienne [id number] BCBS [place] PPO 302/307 [id number] SP [id number] BS Erica Trad/MX Commercial 802 Self 802 [employer] [facility] Commercial [place] HDHP Self L [place] HDHP BS Erica Trad/MX Commercial 802 Self 802 Excellus BCBS Health Maintenance Organization (HMO) Self MVP PREMIER EXCHANGE [id number] Adrienne [id number] [facility] [id number] SP [id number] [facility] O [id number] S [id number] [facility] O [id number] S [id number] [facility] PREMIER EXCHANGE [id number] Adrienne [id number] [facility] O [id number] S [id number] BILL BECK PHY [id number] SP [id number] [facility] HMO/PPO/POS [id number] [facility]/EPO/OTHER [id number] BCBS OF [place] 306/[phone] [id number] SP [id number] BCBS [place] PPO 302/307 [id number] SP [id number] BCBS [place] [id number] S [id number] BCBS HMO [place] O [id number] S [id number] Problems, Conditions, and Diagnoses Code Display Name Description Problem Type Effective Dates Data Source(s) G47.30 Sleep apnea Sleep apnea [id number] 09/01/2019 12:00:00 AM [facility] E66.9 Obesity Obesity [id number] 09/01/2019 12:00:00 AM [facility] E11.9 Diabetes Diabetes [id number] 08/26/2019 12:00:00 AM [facility] K56.609 SBO (small bowel obstruction) SBO (small bowel obstruc tion) [id number] 08/26/2019 12:00:00 AM [facility] K50.90 Crohn's disease Crohn's disease [id number] 08/26/2019 12:0 0:00 AM [facility] K50.919 Crohn's disease, unspecified, with unspe cified complications Crohn's disease, unspecified, with unspe Diagnosis 08/26/2019 04:01:00 PM [facility] K50.90 Crohn's disease, unspecified, without co mplications Crohn's disease, unspecified, without co Diagnosis 08/26/2019 04:01:00 PM [facility] K56.609 Unspecified intestinal obstr uction, unspecified as to partial versus complete obstruction Unspecified intestinal obstruction, unsp Diagnosis 08/26/2019 04:01:00 PM [facility] Surgeries/Procedures Procedure Description Date Indications Data Source(s) Bone Mineral Density Test 10/25/2019 12:00:00 AM EDT [facility] ([facility]) GLUC BLD GLUC MNTR DEV CLEARED FDA SPEC HOME USE POCT GLUCOSE Routine 09/03/2019 8:22 AM EST 09/03/2019 01:22:00 PM [facility] GLUC BLD GLUC MNTR DEV CLEARED FDA SPEC HOME USE POCT GLUCOSE Routine 09/02/2019 5:26 PM EST 09/02/2019 10:26:00 PM [facility] GLUC BLD GLUC MNTR DEV CLEARED FDA SPEC HOME USE POCT GLUCOSE Routine 09/02/2019 1:49 PM EST 09/02/2019 06:49:00 PM [facility] GLUC BLD GLUC MNTR DEV CLEARED FDA SPEC HOME USE POCT GLUCOSE Routine 09/02/2019 8:28 AM EST 09/02/2019 01:28:00 PM [facility] BLOOD COUNT COMPLETE AUTOMATED CBC Routine 09/02/2019 7:30 A M EST 09/02/2019 12:30:00 PM [facility] MAGNESIUM MAGNESIUM Routine 09/02/2019 7:30 AM EST 09/02/2019 12:30:00 PM [facility] COMPREHENSIVE METABOLIC PANEL COMPREHENSIVE METABOLIC PANEL Rou dominique 09/02/2019 7:30 AM EST 09/02/2019 12:30:00 PM [facility] GLUC BLD GLUC MNTR DEV CLEARED FDA SPEC HOME USE POCT GLUCOSE Routine 09/01/2019 5:39 PM EST 09/01/2019 10:39:00 PM [facility] GLUC BLD GLUC MNTR DEV CLEARED FDA SPEC HOME USE POCT GLUCOSE Routine 09/01/2019 10:24 AM EST 09/01/2019 03:24:00 PM EST [facility] BLOOD COUNT COMPLETE AUTOMATED CBC Routine 09/01/2019 8:25 A M EST 09/01/2019 01:25:00 PM EST [facility] MAGNESIUM MAGNESIUM Routine 09/01/2019 8:25 AM EST 09/01/2019 01:25:00 PM EST [facility] BASIC METABOLIC PANEL CALCIUM TOTAL BASIC METABOLIC PANEL Routi ne 09/01/2019 8:25 AM EST 09/01/2019 01:25:00 PM [facility] GLUC BLD GLUC MNTR DEV CLEARED FDA SPEC HOME USE POCT GLUCOSE Routine 08/31/2019 10:14 PM EST 09/01/2019 03:14:00 AM [facility] GLUC BLD GLUC MNTR DEV CLEARED FDA SPEC HOME USE POCT GLUCOSE Routine 08/31/2019 4:57 PM EST 08/31/2019 09:57:00 PM [facility] GLUC BLD GLUC MNTR DEV CLEARED FDA SPEC HOME USE POCT GLUCOSE Routine 08/31/2019 11:45 AM EST 08/31/2019 04:45:00 PM [facility] GLUC BLD GLUC MNTR DEV CLEARED FDA SPEC HOME USE POCT GLUCOSE Routine 08/31/2019 9:03 AM EST 08/31/2019 02:03:00 PM [facility] BLOOD COUNT COMPLETE AUTOMATED CBC Timed 08/31/2019 6:24 A M EST 08/31/2019 11:24:00 AM [facility] MAGNESIUM MAGNESIUM Add-On 08/31/2019 6:24 AM EST 08/31/2019 11:24:00 AM [facility] BASIC METABOLIC PANEL CALCIUM TOTAL BASIC METABOLIC PANEL Timed 08/31/2019 6:24 AM EST 08/31/2019 11:24:00 AM [facility] GLUC BLD GLUC MNTR DEV CLEARED FDA SPEC HOME USE POCT GLUCOSE Routine 08/30/2019 5:25 PM EST 08/30/2019 10:25:00 PM EST [facility] GLUC BLD GLUC MNTR DEV CLEARED FDA SPEC HOME USE POCT GLUCOSE Routine 08/30/2019 12:35 PM EST 08/30/2019 05:35:00 PM EST [facility] GLUC BLD GLUC MNTR DEV CLEARED FDA SPEC HOME USE POCT GLUCOSE Routine 08/29/2019 6:56 PM EST 08/29/2019 11:56:00 PM [facility] GLUC BLD GLUC MNTR DEV CLEARED FDA SPEC HOME USE POCT GLUCOSE Routine 08/29/2019 3:45 PM EST 08/29/2019 08:45:00 PM EST [facility] GLUC BLD GLUC MNTR DEV CLEARED FDA SPEC HOME USE POCT GLUCOSE Routine 08/29/2019 9:03 AM EST 08/29/2019 02:03:00 PM [facility] BLOOD COUNT COMPLETE AUTOMATED CBC Routine 08/29/2019 7:27 A M EST 08/29/2019 12:27:00 PM [facility] BASIC METABOLIC PANEL CALCIUM TOTAL BASIC METABOLIC PANEL Timed 08/29/2019 7:27 AM EST 08/29/2019 12:27:00 PM [facility] GLUC BLD GLUC MNTR DEV CLEARED FDA SPEC HOME USE POCT GLUCOSE Routine 08/28/2019 7:12 PM EST 08/29/2019 12:12:00 AM [facility] GLUC BLD GLUC MNTR DEV CLEARED FDA SPEC HOME USE POCT GLUCOSE Routine 08/28/2019 1:40 PM EST 08/28/2019 06:40:00 PM [facility] GLUC BLD GLUC MNTR DEV CLEARED FDA SPEC HOME USE POCT GLUCOSE Routine 08/28/2019 12:04 PM EST 08/28/2019 05:04:00 PM [facility] RESECTION, SMALL INTESTINE, LAPAROSCOPIC RESECTION, S MALL INTESTINE, LAPAROSCOPIC 08/28/2019 9:37 AM EST SMALL BOWEL OBSTRUCTION; crohn's disease 08/28/2019 02 :37:00 PM EST - 08/28/2019 05:25:00 PM [facility] GLUC BLD GLUC MNTR DEV CLEARED FDA SPEC HOME USE POCT GLUCOSE Routine 08/28/2019 8:21 AM EST 08/28/2019 01:21:00 PM [facility] BLOOD COUNT COMPLETE AUTOMATED CBC Routine 08/28/2019 6:02 A M EST 08/28/2019 11:02:00 AM EST [facility] GONADOTROPIN CHORIONIC QUALITATIVE HCG, SERUM, QUALITATIVE Rout ine 08/28/2019 6:02 AM EST 08/28/2019 11:02:00 AM [facility] BASIC METABOLIC PANEL CALCIUM TOTAL BASIC METABOLIC PANEL Routi ne 08/28/2019 6:02 AM EST 08/28/2019 11:02:00 AM EST [facility] GLUC BLD GLUC MNTR DEV CLEARED FDA SPEC HOME USE POCT GLUCOSE Routine 08/27/2019 8:31 PM EST 08/28/2019 01:31:00 AM [facility] COLECTOMY PRTL W/RMVL TERMINAL ILEUM&ILEOCOLOST 2019 12:00:00 AM EST [facility] ([facility]) GLUC BLD GLUC MNTR DEV CLEARED FDA SPEC HOME USE POCT GLUCOSE Routine 08/27/2019 5:43 PM EST 08/27/2019 10:43:00 PM [facility] ECG ROUTINE ECG W/LEAST 12 LDS TRCG ONLY W/O I&R ECG 12-LEAD Routine 08/27/2019 2:40 PM EST 08/27/2019 07:40:12 PM [facility] GLUC BLD GLUC MNTR DEV CLEARED FDA SPEC HOME USE POCT GLUCOSE Routine 08/27/2019 1:04 PM EST 08/27/2019 06:04:00 PM [facility] HEMOGLOBIN GLYCOSYLATED A1C HEMOGLOBIN A1C Add-On 08/27/2019 12:32 PM EST 08/27/2019 05:32:00 PM EST [facility] BLOOD TYPING ABO TYPE AND SCREEN Routine 08/27/2019 12:30 PM EST 08/27/2019 05:30:00 PM [facility] GLUC BLD GLUC MNTR DEV CLEARED FDA SPEC HOME USE POCT GLUCOSE Routine 08/27/2019 7:59 AM EST 08/27/2019 12:59:00 PM [facility] BLOOD COUNT COMPLETE AUTOMATED CBC Routine 08/27/2019 6:32 A M EST 08/27/2019 11:32:00 AM EST [facility] ALBUMIN SERUM PLASMA/WHOLE BLOOD ALBUMIN Add-On 08/27/2019 6:32 AM EST 08/27/2019 11:32:00 AM EST [facility] BASIC METABOLIC PANEL CALCIUM TOTAL BASIC METABOLIC PANEL Routi ne 08/27/2019 6:32 AM EST 08/27/2019 11:32:00 AM EST [facility] Results ID Date Data Source [id number] 08/16/2020 10:00:00 AM EST [facility] Name Value Range Interpretation Code Description Data Bren rce(s) Supporting Document(s) SARS coronavirus 2 RNA [Presence] in Res piratory specimen by CECE with probe detection POSITIVE [facility] This lab was ordered by [facility] a nd reported by [facility]. ID Date Data Source [id number] 08/02/2020 11:50:00 AM EST [facility] Name Value Range Interpretation Code Description Data Bren rce(s) Supporting Document(s) SARS coronavirus 2 RNA [Presence] in Res piratory specimen by CECE with probe detection [facility] This lab was ordered by [facility] a nd reported by [facility]. ID Date Data Source [id number] 05/29/2020 02:27:00 PM EDT [facility]) Name Value Range Interpretation Code Description Data Bren rce(s) Supporting Document(s) C reactive protein [Mass/volume] in Serum or Plasma by High sensitivity method Laboratory test result 0.00-0.30 [facility] ([facility]) ID Date Data Source [id number] 05/29/2020 02:26:00 PM EDT [facility] ([facility]) Name Value Range Interpretation Code Description Data Bren rce(s) Supporting Document(s) Hemoglobin A1c/Hemoglobin.total in Blood 9.5 % [facility] ([facility]) Lab Result Notes: Pre-Diabetes 5.7 - 6.4 % Diabetes = or > 6.5% Glucose mean value [Mass/volume] in Blood Estimated fr om glycated hemoglobin 226 mg/dL 60-110 [facility] ([facility] ) ID Date Data Source [id number] 05/29/2020 02:26:00 PM EDT [facility] ([facility]) Name Value Range Interpretation Code Description Data Bren rce(s) Supporting Document(s) Cholesterol in HDL [Mass/volume] in Serum or Plasma 48 mg/dL 35-60 [facility] ([facility]) Cholesterol [Mass/volume] in Serum or Plasma 161 mg/dL 131-200 [facility] ([facility] [facility] Triglyceride [Mass/volume] in Serum or Plasma 89 mg/dL 30-150 [facility] ([facility]) Cholesterol in LDL [Mass/volume] in Serum or Plasma by calcu lation 95 CALC 50-159 [facility] ([facility]) ID Date Data Source [id number] 05/29/2020 02:26:00 PM EDT [facility] ([facility]) Name Value Range Interpretation Code Description Data Bren rce(s) Supporting Document(s) Urea nitrogen [Mass/volume] in Serum or Plasma 8 mg/dL 7-18 [facility] ([facility]) Glucose [Mass/volume] in Serum or Plasma 215 mg/dL 74-99 [facility] ([facility]) 100-125 mg/dL PRE-DIABETES/FASTING >126 mg/dL DIABETES/FASTING Creatinine 0.7 mg/dL 0.6-1.3 [facility]) Sodium [Moles/volume] in Serum or Plasma 138 meq/L 136-145 [facility] ([facility]) Carbon dioxide, total [Moles/volume] in Serum or Plasma 29 meq/L 21 -32 [facility] ([facility]) Potassium [Moles/volume] in Serum or Plasma 4.3 meq/L 3.5-5.1 [facility] ([facility]) Chloride [Moles/volume] in Serum or Plasma 102 meq/L 98-107 [facility] ([facility]) Calcium [Mass/volume] in Serum or Plasma 9.4 mg/dL 8.5-10.1 [facility] ([facility]) Total Bilirubin 2.1 mg/dL 0.2-1.0 [facility] ([facility]) NOTE: T.BILI,AST,ALT VERIFIED Alkaline phosphatase isoenzyme [Units/volume] in Serum or Pl asma 105 mg/dL 46-116 [facility] ([facility]) Aspartate aminotransferase [Enzymatic activity/volume] in Serum or Plasma 105 U/L 15-37 [facility] ) Alanine aminotransferase [Enzymatic activity/volume] in Seru m or Plasma 92 U/L 12-78 [facility] ([facility]) Albumin [Mass/volume] in Serum or Plasma 3.2 g/dL 3.4-5.0 [facility] ([facility]) Proteinase 3 Ab [Units/volume] in Serum 7.0 g/dL 6.4-8.2 [facility] A/G Ratio 0.84 CALC 1.00-1.90 [facility] ([facility]) Glomerular filtration rate/1.73 sq M pre dicted among blacks [Volume Rate/Area] in Serum or Plasma by Creatinine-based formula (MDRD) Laboratory test result [facility] ([facility]) <content>CHRONIC KIDNEY DISEASE STAGING PER NKF</content>
<content></content>
<content>STAGE I & II GFR >= 60 NORMAL TO MILDLY DECREASED</content>
<content>STAGE III GFR 30-59 MODERATELY DECREASED</content>
<content>STAGE IV GFR 15-29 SEVERELY DECREASED</content>
<content>STAGE V GFR <15 VERY LITTLE GFR LEFT</content>
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
<content></content> Glomerular filtration rate/1.73 sq M pre dicted among non-blacks [Volume Rate/Area] in Serum or Plasma by Creatinine-based formula (MDRD) Laboratory test result [facility] ([facility] ) ID Date Data Source [id number] 05/29/2020 02:26:00 PM EDT [facility] Name Value Range Interpretation Code Description Data Bren rce(s) Supporting Document(s) Erythrocyte sedimentation rate by Westergren method 39 mm/hr 0-15 [facility] ([facility]) ID Date Data Source [id number] 05/29/2020 02:26:00 PM EDT [facility]) Name Value Range Interpretation Code Description Data Bren rce(s) Supporting Document(s) Leukocytes [#/volume] in Blood by Automated count 4.0 x10*3/UL 4.1-10 .9 [facility] ([facility]) NOTE: RESULT VERIFIED. Hemoglobin [Mass/volume] in Blood 13.8 g/dL 12.0-18.0 [facility] ([facility]) Erythrocytes [#/volume] in Blood by Automated count 3.80 x10*6/UL 4.2 0-6.30 [facility] ([facility]) MCH 36.5 pg 26.0-32.0 [facility] Hematocrit [Volume Fraction] of Blood by Automated count 40.4 % 3 7.0-51.0 [facility] ([facility]) MCV 106.3 fL 80.0-97.0 [facility] Erythrocyte distribution width [Ratio] by Automated count 16.0 % 11.6-13.7 [facility] ([facility]) MCHC 34.3 g/dL 31.0-38.0 [facility] MPV 8.3 FL 7.8-11.0 [facility] Platelets [#/volume] in Blood by Automated count 250 x10*3/UL 140-440 [facility] ([facility]) Lymph % 35.9 % 10.0-58.5 [facility] Mid % 7.9 % 1.7-9.3 [facility] Lymph # 1.4 x10*3/UL 0.6-4.1 [facility] ([facility]) Mid # 0.4 x10*3/UL 0.1-0.6 [facility] ([facility]) Neut % 56.2 % 37.0-92.0 [facility] Neut # 2.2 x10*3/UL 2.0-7.8 [facility] ([facility]) ID Date Data Source [id number] 02/19/2020 10:45:00 AM EDT [facility] Name Value Range Interpretation Code Description Data Bren rce(s) Supporting Document(s) EGD [facility] SRLRWa6lShTQMnEeDUYdHmnEWYfwNNoqDNLsE4R1IBksCf9RZEgzsoPbSMLpUh3+CEGmQP7feu5bTPBu gMy 0mTQAlDpywR5BuIDZka10TIKQsPFiSSvPbTqTyZeH6PECmEiM4IIE3XwWbZfqzJL9aTKW6HAPjBGfiLB DkUIgzGMSrRLckZZ3dQJksGNrgSm0PRG6yd0IbMOVvBARzYwzKFCjlFUumBVXfNUTpOLEhC871foBgOw 6WxFXkZHj6MYVoIkJ6IAVoPiO5BZSkCn9pHyPcj2Pk Q6WmTBj4Q3zOJzxbQ6XzNGijZP5kIDW9CIGgMd9GoLgtIKqkKOELD5exSpVzFOCqCSZXCu2+Pj4+DWVu SU9swj72QFQhe9FqFSf0M0O6vZQbX8YuR8VuONIzkCBGw2dnAlJkCDY5HAHvMaqlOX2MPVXmnHIyVZPb JYpiWR1fwkNyyGG1VO7IcIxjBOQdCEQWQr7+Pi9QYX LdheAuBuGeUPRlC12rhBNopXCrBylzFNBTWX6+ZLYkKL3lmt99FWAnh9IjATs1O8wkvzz7rRPjHDS0Cd QsZxPhOLXxTW1rBA5EkIL1lRUnAS5XjTAdZI1VxZHqJG0DL0LdNID1X7NwcWZqdiSoO5EvFRRxTJJgh7 EbXY5GF9GKQCJpTIKaY0QpiB0oG1QyZ0HlG9Mcscro MTNOEq2JfGU4eDExBXJeN5wieVonlWMjTDrkG4OqtXTRGVJKz68hk33fovKqGB4+j5HkJIDrPGd91kb9 ZVAcX/dnOLNSQzk2FAiiZGZjPcTTbl6cY0cuNmR3ZOt3FogziKT6Y7mJpMWH5//dwuc7qhw1nz/eD+/z 6XGIcn0+g1ps5xEl3tMi7ALNFYnyUQSJlDZRQMSA08 sfuAd6FXmzdScouHdZ+PBuBCBXwITuj8cA6G9Hr9EAdrEjFuF81+Db3jqs9nrf1rNk6+Lm/OhxLP1tg5 ZHQyfGwCDmfEv+lvP/GP18KBpbcHammqXMWpLRLuFBS+EvF4WTOSWmXvxNED3gGPqKRnDeb8Nyp9N4OF CPDXiFAAS+QgQiISEi/u31+liEZWBSpg0A8ZVDD6iM [file] Lev2hgHltVv4z63kGu0rcYa6xTNFeD076J9mUzUkvNuk1uUKzawfJqyskEAo7UTnbq0iKlk3dT4+COMMUNITY HEALTH EDUCATION COORDINATOR+S [file] 4cYfDyvKPFsS/r5uyFBdCaFgtl2I5Ygi2XTjbK9F/ovC+wDdCv8EXWOpxQhWnciw5wCiF3beUvCPQ/Heel Burnisher [file] roofing foreman+s1TcAFVBw1K8d+EHBnH5X+ioM+hHhn3XIEGW2S [file] CEJOCjPFCHWedNWTBCmcvUj1YKUUd/eXbCDVa/JZ9Y aircraft maintenance technician/6DAB18rHPE12Uo1RpgDraHWJkF8aripnO9FET7tkt1etbCQlyD1qcR2cJyn4NAuEZsHC/xYPaBrM [file] Jesus [file] SMj1NADR3V3aYdJ5Xxy6/EGf9RHrj6p4U1f/RF+skilled nursing [file] rBjkIu/IiB9js0UKDMFJg7LMON9L/FfIXS2MOq6rj+visitor services representative+bV5Fqir/K7DSqzaKuas96l23S+zkf5jfdl3 [file] iJeoNcRAzskEIi4kOfcvrIB0Z7K0aoD2Lq09X6OQeoX4acaImPYnbopqDwFRFrE51p1oxhqT4Gx/Heather mVKnH/scdIfUSYD+Rvgn1ZL7R9FbaaUznUi/iQRIqF mj6vpQZ3yvbWSc3RohQAB7AxqtOF4T/DE JESUS+6v4OikCOJ2xfRwioY7zp2ASmX/hitxq/sM4PzsIGkePM7x [file] W/iW5SDbM2JM+NYJIBhMZusCxO2CkvN8Q/ynhStExhWtofzbNKnG1xOAi8g0r/2dd7k+Juan J+ss7ckTF4 [file] 5V8IvemQX7Oxdvn60nlC5lu9Yex1uBIBQlgD4VWF4BZ/eSHoT3dy0IhRDwW1W1g+MQ3PGQvrgc20/skilled nursing [file] NcUQmoRowf+xRLHMeE3/rOBUppyCTwQxdZ9ygua42ULhDRRB6M4pKxlMhe/grain roaster+YKRlFoBAUmYDKOckhE [file] QEMEqKQz0IZB1ja9ZaKQIiKAjjfcPwJjgCRPkbkEQjxDslTXFBBgE8ECZiKb1ECZOXZ0L= ID Date Data Source [id number] 02/14/2020 10:45:00 AM EDT [facility] Name Value Range Interpretation Code Description Data Bren rce(s) Supporting Document(s) SARS-COV-2 RNA RESP QL CECE+PROBE [facility] This lab was ordered by [facility] and reported by [employer]. ID Date Data Source [id number] 02/20/2020 10:17:00 AM EDT [facility] FASTING: UNKNOWNReceived: 02/15/2020 at 06:27:00 QPT: [facility]- [place], [address], [address] [place], [address], Tommy Conner MD Name Value Range Interpretation Code Description Data Bren rce(s) Supporting Document(s) SARS CoV 2 RNA NOT DETECTED Normal (applies to non-numeric results) [employer] A Not Detected (negative) test result fo r this testmeans that SARS- CoV-2 RNA was not present in the specimenabove the limit of detection. A negative result does notrule out the possibility of COVID-19 and should not beused as the sole basis for treatment or patient managementdecisions. If COVID-19 is still suspected, based onexposure history together with other clinical findings,re- testing should be considered in [facility] health authorities. Laboratory test results shouldalways be considered in the context of clinicalobservations and epidemiological data in making a finaldiagnosis and patient management decisions.Please review the "Fact Sheets" and FDA authorizedlabeling available for health care providers andpatients using the following websites:https://www.[employer].com/home/Covid-19/HCP/NAAT/fact-eijfb0foinh://www.[employer].edPULSE/home /Covid-19/Patients/NAAT/fact-fyuva4Cbyw test has been authorized by the FDA under anEmergency Use Authorization (EUA) for use by authorizedlaboratories.Due to the current public health emergency, [facility] is receiving a high volume of samples froma wide variety of swabs and media for COVID-19 testing.In order to serve patients during this public healthcrisis, samples from appropriate clinical sources arebeing tested. Negative test results derived fromspecimens received in non-commercially manufacturedviral collection and transport media, or in media andsample collection kits not yet authorized by FDA forCOVID-19 testing should be cautiously evaluated and thepatient potentially subjected to extra precautions suchas additional clinical monitoring, including collectionof an additional specimen.Methodology: Nucleic Acid Amplification Test (NAAT)includes PCR or TMAAdditional information about COVID-19 can be foun luda the [employer] website:[email or web address]. Your request to have a duplicate copy faxed has been acknowledged. Queued to: [id number] ID Date Data Source [id number] 01/27/2020 03:55:00 PM EDT [facility]) Name Value Range Interpretation Code Description Data Bren rce(s) Supporting Document(s) Choriogonadotropin.beta subunit [Moles/volume] in Seru m or Plasma Laboratory test result [facility] ([facility] ) GESTATIONAL AGE APPROXIMATE HCG RANGE (MIU/ML) - [...] monitoring the treatment of cancer patients. Siemens Byron methodology. ID Date Data Source [id number] 01/24/2020 12:00:00 AM EDT [facility] Grant Tucker MD [facility] of : [facility] H Date of Exam: 01/24/2020ROCIO Calderon [id number]#: Fax: [phone] EXAM: US ABDOMEN, LIMITED SINGLE ORGAN,QUADRANTCLINICAL INFORMATION: Abdominal pain.Multiple ultrasonographic images of the liver show the hepatic parenchymalecho texture to appear unremarkable. There are no focal masses. There isno intrahepatic ductal dilatation. The common bile duct measures between 2and 3 mm in its greatest transverse dimension. Images of the pancreaticregion show no gross abnormality.The imaged portion of the right kidney is unremarkable.IMPRESSION:Unremarkable right upper quadrant ultrasound, status post cholecystectomy.The lack of ultrasonographic evidence choledocholithiasis does not rule itoutAccredited by the [employer] in General Ultrasound.DEBORA Dinh/Hosea cornelius for referring ULYSSES SHEFFIELD to our office.Electronically Signed - NAIN LUNA DO 01/24/20 17:09 Name Value Range Interpretation Code Description Data Bren rce(s) Supporting Document(s) ID Date Data Source [id number] 01/23/2020 10:06:00 AM EDT [facility] ([facility]) Name Value Range Interpretation Code Description Data Bren rce(s) Supporting Document(s) Lipoprotein lipase [Enzymatic activity/volume] in Serum or P lasma 600 U/L 73-393 [facility] ([facility]) Amylase [Enzymatic activity/volume] in Serum or Plasma 70 U/L 25- 115 [facility] ([facility]) ID Date Data Source [id number] 01/23/2020 10:06:00 AM EDT [facility]) Name Value Range Interpretation Code Description Data Bren rce(s) Supporting Document(s) Blood Urea Nitrogen 5 mg/dL 7-18 [facility] ([facility]) Glucose, Fasting 297 mg/dL 70-100 [facility] ([facility]) Creatinine For GFR 0.54 mg/dL 0.55-1.30 [facility] Sodium Level 138 meq/L 136-145 [facility] ([facility]) Glomerular Filtration Rate Laboratory test result [facility] ([facility]) <content>Units are mL/min/1.73 m2</content>
<content></content>
<content>Chronic Kidney Disease Staging per NKF:</content>
<content></content>
<content>Stage I & II GFR >=60 Normal to Mildly Decreased</content>
<content>Stage III GFR 30-59 Moderately Decreased</content>
<content>Stage IV GFR 15-29 Severely Decreased</content>
<content>Stage V GFR <15 Very Little GFR Left</content>
<content>ESRD GFR <15 on SENIOR MARKET RESEARCH ANALYST</content>
<content></content> Potassium Serum 4.4 meq/L 3.5-5.1 [facility] ([facility]) Carbon Dioxide Level 26 meq/L 21-32 [facility] Chloride Level 105 meq/L 98-107 [facility] ([facility]) Anion Gap 7 meq/L 8-16 [facility] Ast/Sgot 61 U/L 7-37 [facility] ([facility]) Calcium Level 8.8 mg/dL 8.5-10.1 [facility] ([facility]) Alt/SGPT 58 U/L 12-78 [facility] ([facility]) Alkaline Phosphatase 88 U/L 45-117 [facility]) Bilirubin,Total 1.2 mg/dL 0.2-1.0 [facility] ([facility]) Total Protein 6.2 GM/DL 6.4-8.2 [facility] ([facility]) Albumin 2.9 GM/DL 3.2-5.2 [facility] ([facility]) Albumin/Globulin Ratio 0.9 1.2-2.2 [facility] ([facility]) ID Date Data Source [id number] 01/17/2020 02:13:00 PM EDT [facility] ([facility]) Name Value Range Interpretation Code Description Data Bren rce(s) Supporting Document(s) Lipoprotein lipase [Enzymatic activity/volume] in Serum or P lasma 452 U/L 73-393 [facility] ([facility]) Amylase [Enzymatic activity/volume] in Serum or Plasma 52 U/L 25- 115 [facility] ([facility]) ID Date Data Source [id number] 01/17/2020 02:13:00 PM EDT [facility] ([facility]) Name Value Range Interpretation Code Description Data Bren rce(s) Supporting Document(s) Blood Urea Nitrogen 8 mg/dL 7-18 [facility] ([facility]) Glucose, Fasting 272 mg/dL 70-100 [facility] ([facility]) Creatinine For GFR 0.78 mg/dL 0.55-1.30 [facility] ([facility]) Glomerular Filtration Rate Laboratory test result [facility] ([facility]) <content>Units are mL/min/1.73 m2</content>
<content></content>
<content>Chronic Kidney Disease Staging per NKF:</content>
<content></content>
<content>Stage I & II GFR >=60 Normal to Mildly Decreased</content>
<content>Stage III GFR 30-59 Moderately Decreased</content>
<content>Stage IV GFR 15-29 Severely Decreased</content>
<content>Stage V GFR <15 Very Little GFR Left</content>
<content>ESRD GFR <15 on SENIOR MARKET RESEARCH ANALYST</content>
<content></content> Sodium Level 139 meq/L 136-145 [facility] ([facility]) Potassium Serum 4.3 meq/L 3.5-5.1 [facility] ([facility]) Carbon Dioxide Level 29 meq/L 21-32 [facility] ([facility]) Chloride Level 100 meq/L 98-107 [facility] ([facility]) Calcium Level 8.8 mg/dL 8.5-10.1 [facility] ([facility]) Anion Gap 10 meq/L 8-16 [facility] Ast/Sgot 81 U/L 7-37 [facility] Alt/SGPT 79 U/L 12-78 [facility] Bilirubin,Total 1.5 mg/dL 0.2-1.0 [facility] ([facility]) Alkaline Phosphatase 90 U/L 45-117 [facility] ([facility]) Albumin 2.9 GM/DL 3.2-5.2 [facility] Total Protein 6.4 GM/DL 6.4-8.2 [facility] ([facility]) Albumin/Globulin Ratio 0.8 1.2-2.2 [facility] ([facility]) ID Date Data Source [id number] 11/22/2019 02:55:00 PM EDT [facility] ([facility]) Name Value Range Interpretation Code Description Data Bren rce(s) Supporting Document(s) Erythrocyte sedimentation rate by Westergren method 51 mm/hr 0-20 [facility] ([facility]) C reactive protein [Mass/volume] in Serum or Plasma by High sensitivity method Laboratory test result 0.00-0.30 [facility] ([facility]) ID Date Data Source [id number] 11/22/2019 02:54:00 PM EDT [facility] ([facility]) Name Value Range Interpretation Code Description Data Bren rce(s) Supporting Document(s) Urine Creatinine 236.6 mg/dL 30.0-125.0 [facility] ([facility]) Microalbumin Urine 2435.7 mg/L 1.3-20.0 [facility] ([facility]) Microalb/Creat Ratio 1029.5 ug/mg 0.0-30.0 [facility] ([facility]) ID Date Data Source [id number] 11/22/2019 02:54:00 PM EDT [facility] ([facility]) Name Value Range Interpretation Code Description Data Bren rce(s) Supporting Document(s) Thyrotropin [Units/volume] in Serum or Plasma by Detec tion limit <= 0.05 mIU/L 2.25 uIU/mL 0.36-3.74 [facility] ([facility] ) ID Date Data Source [id number] 11/22/2019 02:54:00 PM EDT [facility] ([facility]) Name Value Range Interpretation Code Description Data Bren rce(s) Supporting Document(s) Glucose [Mass/volume] in Serum or Plasma 268 mg/dL 74-99 [facility] ([facility]) 100-125 mg/dL PRE-DIABETES/FASTING >126 mg/dL DIABETES/FASTING Urea nitrogen [Mass/volume] in Serum or Plasma 7 mg/dL 7-18 [facility] ([facility]) Creatinine 0.7 mg/dL 0.6-1.3 [facility] Sodium [Moles/volume] in Serum or Plasma 141 meq/L 136-145 [facility] ([facility]) Chloride [Moles/volume] in Serum or Plasma 103 meq/L 98-107 [facility] ([facility]) Potassium [Moles/volume] in Serum or Plasma 3.6 meq/L 3.5-5.1 [facility] ([facility]) Calcium [Mass/volume] in Serum or Plasma 9.0 mg/dL 8.5-10.1 [facility] ([facility]) Alkaline phosphatase isoenzyme [Units/volume] in Serum or Pl asma 69 mg/dL 46-116 [facility] ([facility]) Carbon dioxide, total [Moles/volume] in Serum or Plasma 30 meq/L 21 -32 [facility] ([facility]) Total Bilirubin 0.9 mg/dL 0.2-1.0 [facility] ([facility]) Aspartate aminotransferase [Enzymatic activity/volume] in Serum or Plasma 51 U/L 15-37 [facility] ([facility] ) Alanine aminotransferase [Enzymatic activity/volume] in Seru m or Plasma 50 U/L 12-78 [facility] ([facility]) Albumin [Mass/volume] in Serum or Plasma 3.0 g/dL 3.4-5.0 [facility] ([facility]) Glomerular filtration rate/1.73 sq M pre dicted among non-blacks [Volume Rate/Area] in Serum or Plasma by Creatinine-based formula (MDRD) Laboratory test result [facility] ([facility] ) A/G Ratio 0.75 CALC 1.00-1.90 [facility] Proteinase 3 Ab [Units/volume] in Serum 7.0 g/dL 6.4-8.2 [facility]) Glomerular filtration rate/1.73 sq M pre dicted among blacks [Volume Rate/Area] in Serum or Plasma by Creatinine-based formula (MDRD) Laboratory test result [facility] ([facility]) <content>CHRONIC KIDNEY DISEASE STAGING PER NKF</content>
<content></content>
<content>STAGE I & II GFR >= 60 NORMAL TO MILDLY DECREASED</content>
<content>STAGE III GFR 30-59 MODERATELY DECREASED</content>
<content>STAGE IV GFR 15-29 SEVERELY DECREASED</content>
<content>STAGE V GFR <15 VERY LITTLE GFR LEFT</content>
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
<content></content> ID Date Data Source [id number] 11/22/2019 02:54:00 PM EDT [facility] Name Value Range Interpretation Code Description Data Bren rce(s) Supporting Document(s) Hemoglobin A1c/Hemoglobin.total in Blood 8.0 g/dL 4.8-5.6 [facility] ([facility]) Lab Result Notes: Pre-Diabetes 5.7 - 6.4 % Diabetes = or > 6.5% Glucose mean value [Mass/volume] in Blood Estimated fr om glycated hemoglobin 183 mg/dL 60-110 [facility] ([facility] ) ID Date Data Source [id number] 11/22/2019 02:54:00 PM EDT [facility]) Name Value Range Interpretation Code Description Data Bren rce(s) Supporting Document(s) Erythrocytes [#/volume] in Blood by Automated count 3.69 x10*6/UL 4.2 0-6.30 [facility] ([facility]) Leukocytes [#/volume] in Blood by Automated count 5.7 x10*3/UL 4.1-10 .9 [facility] ([facility]) Hemoglobin [Mass/volume] in Blood 12.0 g/dL 12.0-18.0 [facility] ([facility]) MCH 32.6 pg 26.0-32.0 [facility] ([facility]) MCHC 33.8 g/dL 31.0-38.0 [facility] ([facility]) Hematocrit [Volume Fraction] of Blood by Automated count 35.6 % 3 7.0-51.0 [facility] ([facility]) MCV 96.3 fL 80.0-97.0 [facility] ([facility]) Platelets [#/volume] in Blood by Automated count 263 x10*3/UL 140-440 [facility] ([facility]) Erythrocyte distribution width [Ratio] by Automated count 16.3 % 11.6-13.7 [facility] ([facility]) MPV 7.0 FL 7.8-11.0 [facility] ([facility]) Mid % 7.6 % 1.7-9.3 [facility] ([facility]) Neut % 63.9 % 37.0-92.0 [facility] ([facility]) Lymph # 1.6 x10*3/UL 0.6-4.1 [facility] ([facility]) Lymph % 28.5 % 10.0-58.5 [facility] ([facility]) Mid # 0.5 x10*3/UL 0.1-0.6 [facility] ([facility]) Neut # 3.6 x10*3/UL 2.0-7.8 [facility] ([facility]) ID Date Data Source [id number] 10/21/2019 01:11:00 PM EDT [facility] Name Value Range Interpretation Code Description Data Bren rce(s) Supporting Document(s) Laboratory test finding (navigational concept) Laboratory test result [facility] ([facility]) SEE SEPARATE REPORT Testing performed at reference lab . Report copy to follow on a separate form. 10/29/19 REF LAB#:[id number] ID Date Data Source [id number] 10/21/2019 01:11:00 PM EDT [facility] ([facility]) Name Value Range Interpretation Code Description Data Bren rce(s) Supporting Document(s) C reactive protein [Mass/volume] in Serum or Plasma by High sensitivity method Laboratory test result 0.00-0.30 [facility] ([facility]) ID Date Data Source [id number] 10/21/2019 01:11:00 PM EDT [facility] ([facility]) Name Value Range Interpretation Code Description Data Bren rce(s) Supporting Document(s) Glucose, Fasting 203 mg/dL 70-100 [facility] ([facility]) Blood Urea Nitrogen 10 mg/dL 7-18 [facility] ([facility]) Sodium Level 139 meq/L 136-145 [facility] ([facility]) Glomerular Filtration Rate Laboratory test result [facility] ([facility]) <content>Units are mL/min/1.73 m2</content>
<content></content>
<content>Chronic Kidney Disease Staging per NKF:</content>
<content></content>
<content>Stage I & II GFR >=60 Normal to Mildly Decreased</content>
<content>Stage III GFR 30- 59 Moderately Decreased</content>
<content>Stage IV GFR 15-29 Severely Decreased</content>
<content>Stage V GFR <15 Very Little GFR Left</content>
<content>ESRD GFR <15 on SENIOR MARKET RESEARCH ANALYST</content>
<content></content> Creatinine For GFR 0.56 mg/dL 0.55-1.30 [facility] ([facility]) Carbon Dioxide Level 27 meq/L 21-32 [facility] ([facility]) Chloride Level 105 meq/L 98-107 [facility] ([facility]) Potassium Serum 3.9 meq/L 3.5-5.1 [facility] ([facility]) Anion Gap 7 meq/L 8-16 [facility] ([place] [facility] [place]) Calcium Level 9.3 mg/dL 8.5-10.1 [facility] ([facility]) Alt/SGPT 52 U/L 12-78 [facility] [facility] Ast/Sgot 39 U/L 7-37 [facility] ([place] [facility]) Bilirubin,Total 0.9 mg/dL 0.2-1.0 [facility] Total Protein 7.2 GM/DL 6.4-8.2 [facility] ([facility]) Alkaline Phosphatase 56 U/L 45-117 [facility] Albumin/Globulin Ratio 0.89 1.00-1.93 [facility] ([place] [facility]) Albumin 3.4 GM/DL 3.2-5.2 [facility] ([place] [facility]) ID Date Data Source [id number] 10/21/2019 01:11:00 PM EDT [facility] ([facility]) Name Value Range Interpretation Code Description Data Bren rce(s) Supporting Document(s) White Blood Count 5.2 10 4.0-10.0 [facility] Red Blood Count 3.51 10 4.00-5.40 [facility] ([facility]) Hemoglobin 11.5 g/dL 12.0-15.5 [facility] ([place] [facility]) Hematocrit 36.0 % 36.0-47.0 [facility] ([place] [facility]) Mean Corpuscular Volume 102.6 fl 80.0-96.0 [facility] ([place] [facility]) Mean Corpuscular Hemoglobin 32.8 pg 27.0-33.0 ME DENT ([place] [facility]) Red Cell Distribution Width 17.2 % 11.5-14.5 ME DENT ([place] [facility]) Platelet Count, Automated 315 10 150-450 MEDE NT ([place] [facility]) Mean Corpuscular HGB Conc 31.9 g/dL 32.0-36.5 MEDE NT ([place] [facility]) Nucleated Red Blood Cell % 0.0 % 0-0 MED ENT ([place] [facility]) ID Date Data Source [id number] 10/18/2019 03:00:00 PM EDT [facility] Name Value Range Interpretation Code Description Data Bren rce(s) Supporting Document(s) Follow Up [facility] KUKALu4eRqVQHiQzUSVtAxlXWLycPBluQNYxF0I5HPsaIs4PSPzklzZwTYFfPr8+WJUiMQ3rcc5pGZVj gMy [file] Jesus [file] UqqAs841R5Eso6kA2uIaFdA3O49+ui8jobIfpt/Jose Alberto [file] Nhrp2dmay7opqyRPIp2G7uV2/fXGqo/OReSvW0V08tfXnll3yA3w2+door puller+uNnwaNfCAAn723KBTKb+yG [file] [place]+sNVImXuKtowaI9C5bia6VMnRB9c5MaCmsyMzUV2MBST4MaKy2PrT7J4uexmXf7qqqKRswRfAe9W8 WK8xa8DSn8Vf6gu10RJFGEhzal5BiIeEMzz5mPBXry y7woSYk3HDhuHkPkg1Fyz0dXOu0Jc88/nXK8c6pyXRNqBQG4gW9ZIZxfyEc6I4sxjqkeDEjYDSQgSVlk JIHehZIw+wMkS5/M0vS5bmpJCs5g7RQRW8Xcviu1u7+o7fgdqmXXvX5DGkLxBzFAhyCaYDwoRRf3Kqs4 u2L0xD/4Ee+QWcUb1wJ4Qzh9KhJyBEmZe/MARSHA/rsaK [file] Jesus [file] 4Ycv3+9+De Jesus+9qg5nM75Dd05ruy4+/3U9Y5+3owi0dFVii5P1ksQqkJ3wDl/x1iujtVblqGhsPxBnrzQw [file] Heel Burnisher/Fsr9uwXwwf4Ekg2G3lkLF7LYLAeBEWKub6JMj1i36q6U2tx/5cAD9BDh/KZjhCW0rxf3h29I7utOk [file] pK3Tdn8icq7YHSgr+DE JESUS/lddanU6xQX0tixtkqUDM8g [file] Pr/hWLi44da0VbFtvIT0v+JoNfdGJm6MUGFMZp4/Heel Burnisher [file] nqvrXiBh8C7/81/DE JESUS/ADenYAps19LuH/I1BGsBupHd5SbGiy3daX0zLhrH0y9KzC7jGNl/hKH93cZZXd [file] kUMPlV7B1+DE JESUS/0XY/+hZK9QT6lze959i7fk68Ho3/NXtAV2VT+/6VguIq2spQarAysjgaclVpBAnEEQz [file] fish and wildlife technician/rZyP6InJbGfHgUM8kZg8Gtx99iRFL7Elsc/WF [file] 7E+eql4Zk6tZRCiT1xcOQK465/supervisor locomotive+JYSSkScCg3o3qcz66I742BRgYDPzSjZ79yKr7X/TmU86wEFXDX [file] Associate Director [file] De Jesus+ZfhqwIpxvYVBsJaVphz5vGkNIL1ANJQlj6dSyJoXUHOJsotj/C+sV2FLhiqwigTl47Hk+pCuBvtjU [file] 1SNAbNIg+FY+neuro intensivist physician+Vfd+RYFo1uL/ZViBJNb2nHG8FNmxjdqF+yFLtBY89/kwIrTYb/AdmeKhDTuG0H4/ [file] FD5Q3jyceN6AcJHu5JVeG1niVdqbhw70rjtxaxltlR DE JESUS/6v4HjR1X46dI/ws0OiPVGPrQzy8XjAIQ2l3Ya+mXtiyRlSYYeZw9HoJ84GhcAcOHd/B4CqOxeYb1N 3wRm4+63sfejRuIPbfm4jSFSYTPWKS+xN2AQxox1zgjTJntfLiYTPiguD0IP2jFWkTQ4UHCzZt6rGjit MNqOFagBoRnsj3ln5gcsPNfImd+0Slou68pJHtyWGO IcRl1L/+K50zuNr1jjuO8qwdPKOsSZpOMNDLK5BuRzaJB7x6fF9x10pTsd/YcMqVkvkIZxpLk0Ae+5Rk QMcZIpa/WyuxkYXEG59pB6y5k4zjC/jt+i3gmgggIf6cd3RjBISxHK1rQ+azV3B95p1b1jvsbt2lSwsE NtcDw+qLVkSZCzpXU4r6mFmS08QHm6ikK6OQrfo38W oPpEwKwYKtBBEfLzatphWAqAdLk8fnLrYhT+qxzYH4xjMDRZQKRjUAs4YzUH1rYDTOeDJOSUacAxTjt+ 7RgQVqigzd3cV9QnVHWEnd6/GDIdBw3XOdJOc+yZWUz++MZ4FYwLj05Pxql+xlNjQcV0jLN7p8t6d0/d Bmym8DfqUcF3eNh+H0yphD1Qwgmyw6Xfo6k9fe+/SERBIAN [file] ol/PUIyFqA0J4GzvaWoMQ9oyaIx6jbvdHGwn9u/valentín [file] 0DdRsIbV2opwfb3O1lk3zTt0wRsTPBUyxhEAZhd536xnYoWnpmcKh5esQ+uh2UshYvdufvejgZuPA+grain roaster Syusvita4+kgI76SgHS63PPiQ0awV3f13AGKtN1ub3wYRdk1xPlltJ4i3kxTol9BPyOy9XPtWp3wXapb D98fyWqmYVzLc9sdJqbTXAJNprpWGDYzK302+BpCzG SKumOBO410+UDlDeM8E1awnNSLxDZiXKnXwKSybux2bEAJQHsT1OKB8dwowqaKiDQkEkpie3d6odvMWH m+E7L2i3nvR59FxaaE6gZAM6KOYaykYd8pKx7YqRb5aLTTrvSkKVGkOb206s2fNQsYRnlLM5X4AxkBN6 JL++ck4N9QfQNM/CE7r4iNUJ/MW1aACkkuvpsNhe8y 3pwmd21qsO2slMrZYGKrdGy2xbxidUY+Sck41MLq61dju1+n7E1wvs9Mh341Z/IKOv8zQjOQ/EuGxw4H y4bg+5GTzqb/yT7P9Z0an8hNWMZXLEVHe4E6O5Cv4o0QRYKWfLT+GKBv3vxk/EEGx7+LjCrVksL0XsiY miaYwXHtx2at72cj1Va9zGC646eXfFlzbdK631masS CVr1/NrffmGdh1DbLFJ5QjeCzSLlco9zK2yOvaXRlOwa+XPiNCOWQfkUfI10PAOlWKq9u3Vdh6raQXcf x/0I4VXitp5hMiue6JcCJMvY7pNipAg885rTXNvuKOe6eS3acvNmGji+APU2HDMaKqJ/tChy60MX+Lorena [file] analytics specialist/r1C8LSEIfww+1mLgmeOrL+1Sr6PVEbkEzrOpltdN41oIVSi7Rj+Am9vm8IkdS5wK5b+4FAt5cNHm [file] ajW7NirNMpqE2/De Jesus+akeEwhrLPfiAoaX4Tnj69xRpDivr52MC8ezILGEZhyELwKsxItMZscNlJsvOuHd [file] hFokIR6sg0DcnUMQbZ7EGeqyefBa2fK4uaqJ/RpfTN6yaHkP6peXAVVk+doT9gS+1BKvointIsVI+rivet passer [file] 92EGjoltjlehMxel/jeoNtYNRybcuk9teAjH3VjBDtQmQPhSQ30YV+XjvnwlbIgxxBSvMdl+head mixer/oYOa [file] mmbViZA31PYjqtBiJqbtJFQVZxqZn6SycSnZyR/unit nurse RNbejgb98p7FZ0nkINMnAMr270gRjDZMB5nQxMxzy6TXJK0E5scqwoZpToYcI+yNuHlXqnDFxeNvbjKq MM98fLqrcea/ksZiI1BUyxqt9Oq3epz9sp2p3mJDR12SILdU5Uz/z68tjmpqk/J6OmeCCRmVLG9kb7Rh IP1lZ2rKoEtdctQMbToMSfDrQfO3HCwlQHQ9masYUq uM5J4P93DYqSmIdtppl+Qds2uxQMqDOQjs0GuZbm20ECzi4c8b7ea418mToRCFma03Z5bNwgev43YFvm MAqmkoH4spYNMX6a4EMgokyaN+mnjGa/wzhfSWn7W9cMnBlLXy64Q1Gy1jQpPUBXpudBVkVYA5ltSoks Kj6y+bFV34aWGjCVhywWpe4ZN5n59SsrScYE91t1wv wxgnZOFm6Yn7BKdD+eqRsfsQ/yeDRQ/HQJa/b/Yn60FF7QJArdeUzz0yhMIZsvgMsLcLC5y4gZyZnrH1 moT4jqs/5Oh59YcYVeaoGuN1h/DgdLWoxrLQmdpXVsN6hKb1tAZ3Y189Eq+3KtFy0+BBSOOGiB8PZZGU KwcyS5v3jaP1wxtL9xhoyoY17zPP9jWVwNF5MlPrXI RRdpS1WoyzBuS1eGV/AlTxtxYF45NmPQIJ0cag4kbYRUNwHDIiPXme9wWH5AOPj4Wk9f+9kjGPAIulQg iC+mi3pY8piru6vuVqhkYJ/GuvYoCkqiHLMDtupoyuPQr7kvzDwVc5pCc2eMN1o+FNyZSndG2iT9SzbI ftQTc+jEBim4mtEjmZFVqzvMIP3H3qh75unx6/fIQF 5HBtgFwkX57BdWJXBRiZbFiIwKIx+7CRMqUdjJEbfzUCJP+xEX/rieC34TRQfZihMWYJXEfXTmBrdU05 QJmplQnGUu6YBoAuXAoeaN9ta13ANDJaX/nCsoO/Q0hA6umMDnmGRAp0j9ENnS6PCo3Nc4KlsbmbiWwf xaUlPtfJsAaPQjctbgnKHsIcWUaWxkQHNWSVUYTtPs [file] vp ad sales west/9aLdJz7W3Fyn2qLvo2gFEJPenwzvE8+pKiea3tEaHcGeSVfzjIbf09GU8ob95kbQns3LVZcbOT1bw [file] UaDhLT1njl+qMey0YmVmY/rrnpYk/CHARGE AIDE+TcVpdYRjgYND/n8c6O56TkzBJZSGXqMHoMtsQC2g+/kyfJ5 [file] mVNFtyvkzX3W7yWlM7XAJtk8zcAndlo/2uZIx5iblV67776SiTLXCG/sous chef+s4K1wsM2ZoXrvwuXgs2jr [file] Beverly/qwZeQ6XM23BXXYqAvBjKumDrbO0waD3JzkbaG7TAeABIkRG7ZhRBYF6fIllqVKOW4m0xMe7qpSgI sw2H38lkwXAxH9rrPXwgsIXGa76e8FPbs2LRmg5rZC 2rSsuLoNFlUVP520S9Qk3N8JUri0mhRePiy+3eFUN0/DtGRna9M7kvftGu16+ygvPScXL66taXX8nkLL OynKqdf+GbYP8NmS70hfKqs2Mqmzp+B03LbZhsaDOhMqq/2aJ4//2nvn8XTHtHrYfxJmRC0jZ6Bo1Hsa mMbRFfo8GRdODcyLWqnlnG5mVg7mMmzwrR46dEezyX jG/fAmVfn7f1lBsomrMj0uOgjZMAgFaGZyiv/Y45yCemkhqjYQfiy77k6uPJk3bLSXSbwt6TeMiwRew/ Id6jnPQzla9hZBsK661te/kyCzRgO78BtgzQRyFPG53++fHbyMOWxHtaes/8anrk+1VQeCp50RTwv+cT rVnGLAwy5G7F6++JOSE M/f2jz6E8zwY/b9Aqc+u1f/eP [file] +ZhMGt5b94vSbLHnUZdgHp3BTs76N8viWsOVqiZoLDAUC3mascWglZEcOlzRMU6s+u35PREe3l8R4+COMMUNITY HEALTH EDUCATION COORDINATOR [file] trimmer [file] 7Rz+vp ad sales west/icd/Y7JGCqDaaZ+VgeyMCoD45r72voCp860 [file] ASiIiDPSEu5q6DR6BnB4HlpvBR5MFOiJgH4+LQFWKnel2R3s4q5t5abG12thUqc/vp ad sales west+Ys6wCi/0Urvd7 [file] kscoCBggzHxLX5t/9gbkIZbiKJhmvKao8oOSy6jwfPKTJWQ+fblM2XF5wOJ1PAsDvwL5wiT+CONSTRUCTION PROJECT ADMINISTRATOR/Ybo6R [file] teyc7Qywc1eoX/nlvKrUV9egOV1Fgh/0fzH81/COMMUNITY HEALTH EDUCATION COORDINATOR/R/Efzv2j+P/ALdolDpenP+kRnWiiQk1uClCUzdd [file] oROEXhRi8IwHHCnNZqQxTVhU/3BfRSv7p25AysiedWkSHa8oRDDir4H8q/lBY83Psf+y6JS8WPofe/Heel Burnisher [file] Axp3HdF1JSGXPMJEFOG8GV2hDJYTTHCQWyfJBcAQCC wIDGT6UEhkKPr5NmHCR0H3AZNcVa8wVv3ugCJmTDJwOc5UuyMcPNLsFJVMH3GeckAiElYyEFlpXOIjCQ BkDt9JEMxoXSUwJH9+UiD5ajLjiJ0ZgRnpOEWxsLMxZQHcFMONHS0OoGs8KJSPWRZdkDESMc+AyLsyQJ KncSOIbNIDk/UAKrLOM2umT5YxbhTPxU1reFEEoeXQ asybJ8MucbVIFLZULzzTPCVKTGlRvocQtHAzHMZH/k5KLn6MXV0nf7WtJSAvCElnpmGdDcxPQAdsvNNr qPmvACRNCsG6ZPm3VJJNDdMtUD1T ID Date Data Source [id number] 10/07/2019 06:48:45 AM EST [facility] NT INFORMATIONPatient MRN Name Date of Age Gend*PT [id number] [address] 1975 43 years F IPPT Location Admission Date/Time Visit ID Attending [id number] 08/26/19 1601 --- --- EPI ID CSN Admitting Provider [id number] Ok Hester MD([id number]) [place] [address] DISCHARGE SUMMARY DISCHSUMNAME: ULYSSES SHEFFIELD#: [id number] #: [id number] ADMISSION DATE: 08/26/2019DOB: 1975 SEX: F PT TYPE: I SURACCT #: [id number] CARE PHYSICIAN: BRANDIN RODRIGUES OF DISCHARGE: 08/08HOSPITAL COURSE:The patient was admitted with terminal ileal Crohn's symptomatology.Patient was treated initially conservatively, was taken to the operatingroom where an ileocolic resection was performed on 08/28/2019. Pathologyrevealed terminal ileal disease, crypt abscesses were noted, but nogranulomas were seen. Total length of colon and small bowel was 12 cm.Postoperatively, she had no complications, advanced to a regular diet, willbe followed in the office.YUKO FIGUEROA/NTS Job #: [id number] DOC #: [id number] Name Value Range Interpretation Code Description Data Bren rce(s) Supporting Document(s) ID Date Data Source [id number] 09/23/2019 11:09:05 AM EST [facility]FORMATIONPatient [facility]N Name Date of Age Gend*PT [id number] [address] 1975 43 years F IPPT Location Admission Date/Time Visit ID Attending [id number] 08/26/19 1601 --- --- EPI ID CSN Admitting Provider [id number] Ok Hester MD([id number]) [place] [address] OPERATIVE REPORT OPNAME: ULYSSES SHEFFIELD#: [id number] #: [id number] ADMISSION DATE: 08/26/2019DOB: 1975 SEX: F PT TYPE: I SURACCT #: [id number] CARE PHYSICIAN: BRANDIN RODRIGUES OF OPERATION: 020PREOPERATIVE DIAGNOSES:1. Crohn's disease recurrence with stricture at terminal ileum.2. Colonic anastomosis.POSTOPERATIVE DIAGNOSES:1. Crohn's disease recurrence with stricture at terminal ileum.2. Colonic anastomosis.3. Without evidence of any skip areas and a limited segment of small bowelhad to be resected.SURGEON:Ok Hester MDDESCRIPTION OF PROCEDURE:The patient was put in supine position. General anesthesia was induced.Endotracheal intubation was performed. A Bal catheter was placed. Theabdomen was prepped and draped. Midline incision was made. Explorationrevealed adhesions which required significant dissection to take down, butthere were no enterotomies or serosal tears. I was able to identify thetransverse colon, mobilized it as was the hepatic flexure and the ascendingcolon and the small bowel was in somewhat of a mass near the ileocolicanastomosis. This was mobilized from the right lower quadrant. Afterwardswe inspected and found no evidence of any injury to surrou nding structuressuch as the duodenum or ureter. Further dissection was performed in thismass of small bowel, so that we were able to salvage as much small bowel aspossible. We then transected what appeared to be normal small intestinewith no evidence of inflammation, thickening or creeping fat, no evidenceof any Crohn's disease, transected with a MARLEIN. Just distal to theanastomosis, another MARLENI was placed across the colon, which appearedhealthy. Mesentery was taken down with 0 chromic suture ligatures. Fuxww-wx-acwq anastomosis was performed. There appeared to be very goodblood supply to both s egments of intestine. MARLENI firing was performed, theensuing hole was then closed with a TA 60. The gkir-kv-rxse staple linewas reinforced with 3-0 Vicryl suture. Hemostasis was checked and found gaston adequate. Lap count was correct as was the instrument count. Abdomenwas closed with a running #1 PDS. Subcutaneous tissue was irrigated andthe skin was closed with cyndi. Sponge, needle and instrument count werecorrect.ESTIMATED BLOOD LOSS:150-200 mLYUKO FIGUEROA/BRENTON Job #: [id number] DOC #: [id number]: GRANT TUCKER MD Name Value Range Interpretation Code Description Data Bren rce(s) Supporting Document(s) ID Date Data Source [id number] 09/12/2019 10:50:00 AM EST [facility] ([facility]) Name Value Range Interpretation Code Description Data Bren rce(s) Supporting Document(s) Bacteria identified in Urine by Culture Laboratory test result [facility] ([facility]) <content>FULL REPORT IN LAB NOTES ([facility] a nd [facility]).</content>
<content></content>
<content>ORGANISM 1: CITROBACTER FREUNDII</content>
<content></content>
<content>COLONY COUNT 50,000</content>
<content></content>
<content></content>
<content>OR GANISM 1: CITROBACTER FREUNDII</content>
<content></content>
<content> CITROBACTER FREUNDII: REACTION</content>
<content>TRIMETHOPRIM/SULFAMETHOXAZOLE IV 160mg TMP & 800mg SMXq6h <=20 S</content>
<content> TRIMETHOPRIM/SULFAMETHOXAZOLE PO Bactrim DS Bid <=20 S</content>
<content>GENTAMICIN IV 80mg q8h <=1 S</content>
<content>NITROFURANTOIN PO 100mg BID <=16 S</content>
<content>CEFAZOLIN IV 1gm q8h >=64 R</content>
<content>LEVOFLOXACIN IV 500mg qd <=0.12 S</content>
<content>LEVOFLOXACIN PO 250mg qd <=0.12 S</content>
<content> LEVOFLOXACIN PO 500mg qd <=0.12 S</content>
<content>TOBRAMYCIN IV 80mg q8h <=1 S</content>
<content>CEFTRIAXONE IV 1gm q24h >=64 R</content>
<content>CEFTAZIDIME IV 1gm q8h >=64 R</content>
<content>PIPERACILLIN/TAZOBACTAM IV 2.25 gm q6h >=128 R</content>
<content>AZTREONAM IV 1gm q8h 32 R</content>
<content> ERTAPENEM IV 1gm qd <=0.5 S</content>
<content>MEROPENEM IV 1 gm q8h <=0.25 S</content>
<content>MEROPENEM IV 500 mg q8h <=0.25 S</content>
<content>TIGECYCLINE IV 50mg q12h 2 S</content>
<content>CEFEPIME IV 1 gm q12h <=1 S</content>
<content>CEFEPIME IV 2 gm q12h <=1 S</content>
<content></content> ID Date Data Source [id number] 09/12/2019 10:49:00 AM EST [facility] Name Value Range Interpretation Code Description Data Bren rce(s) Supporting Document(s) Urine Color Laboratory test result MEDEN T ([facility]) Urine Appearance Laboratory test result Abnormal (applies to non-numeric results) [facility] Urine PH 6.0 units 5.0-9.0 [facility] [facility]) Specific gravity of Urine 1.020 1.005-1.030 FL DENT ([facility]) Urine Blood Laboratory test result Abnormal (applies to non-numeric results) [facility] ([facility]) Urine Leukocytes Laboratory test result Abnormal (applies to non-numeric results) [facility] ([facility]) Glucose [Presence] in Urine Laboratory test result [facility] ([facility]) Urine Protein Laboratory test result 0-0 Abnormal (applies to non-numeric results) [facility] ([facility]) Urine Nitrite Laboratory test result MED ENT ([facility]) Urine Ketone Laboratory test result MEDE NT ([facility]) Bilirubin.total [Mass/volume] in Serum or Plasma Laboratory test resu lt [facility] ([facility]) Urine Urobilinogen 0.2 mg/dL 0.2-1.0 [facility] ([facility]) ID Date Data Source [id number] 09/03/2019 08:24:12 AM EST [facility] Name Value Range Interpretation Code Description Data Bren rce(s) Supporting Document(s) POC NOVA GLU 155 mg/dL (70-99) H [facility] ID Date Data Source [id number] 09/02/2019 05:27:49 PM EST [facility] Name Value Range Interpretation Code Description Data Bren rce(s) Supporting Document(s) POC NOVA GLU 177 mg/dL (70-99) H [facility] BY [facility] ID Date Data Source [id number] 09/02/2019 01:51:53 PM EST [facility] Name Value Range Interpretation Code Description Data Bren rce(s) Supporting Document(s) POC NOVA GLU 186 mg/dL (70-99) H [facility] ID Date Data Source [id number] 09/02/2019 08:30:16 AM EST [facility] Name Value Range Interpretation Code Description Data Bren rce(s) Supporting Document(s) POC NOVA GLU 169 mg/dL (70-99) H [facility] ID Date Data Source [id number] 09/02/2019 10:02:31 AM EST [facility] Name Value Range Interpretation Code Description Data Bren rce(s) Supporting Document(s) MAGNESIUM 1.5 mg/dL (1.7-2.4) L [facility] ID Date Data Source [id number] 09/02/2019 10:02:31 AM EST [facility] Name Value Range Interpretation Code Description Data Bren rce(s) Supporting Document(s) SODIUM 139 mmol/L (136-145) [facility] POTASSIUM 3.3 mmol/L (3.6-5.2) L [facility] CHLORIDE 104 mmol/L (100-108) [facility] CO2 24 mmol/L (22-31) [facility] ANION GAP 11 mmol/L (7-16) [facility] UREA NITROGEN 6 mg/dL (7-24) L [facility] CREATININE 0.60 mg/dL (0.60-1.00) [facility] BUN/CREAT RATIO 10.0 RATIO (10.0-20.0) [facility] GLUCOSE 165 mg/dL (70-99) H [facility] CALCIUM 8.1 mg/dL (8.4-10.2) L [facility] TOTAL PROTEIN 5.3 g/dL (6.4-8.2) L [facility] ALBUMIN 2.1 g/dL (3.5-4.6) L [facility] GLOBULIN 3.2 g/dL (2.7-4.3) [facility] ALB/GLOB RATIO 0.7 RATIO [facility] ALKALINE PHOSPHATASE 68 U/L (45-117) [facility] BILIRUBIN,TOTAL 0.7 mg/dL (0.0-1.0) [facility] AST (SGOT) 24 U/L (11-39) [facility] ALT (SGPT) 41 U/L (12-78) [facility] GFR >60 ml/min/1.73m2 (>59) [facility] GFR ( AMER) >60 ml/min/1.73m2 (>59) [facility] GFR INTERPRETATION [facility] --NORMAL KIDNEY FUNCTION OR MILD DISEASE - GFR >OR= 60CHRONIC KIDNEY DISEASE - GFR 15 - 59RENAL FAILURE - GFR <15 Est. GFR calculation based on the MDRDstudy equation, which assumes a steadystate for creatinine. Est. GFR should notbe used for medication dosing. ID Date Data Source [id number] 09/02/2019 09:19:10 AM EST [facility] Name Value Range Interpretation Code Description Data Bren rce(s) Supporting Document(s) WBC 4.9 10*3/uL (4.1-11.0) [facility] RBC 3.16 10*6/uL (4.00-5.40) [facility] HGB 11.1 g/dL (12.0-16.0) [facility] HCT 32.5 % (36.0-47.0) [facility] MCV 102.8 fL (80.0-95.0) [facility] MCH 35.2 pg (27.0-32.0) [facility] MCHC 34.2 g/dL (32.0-36.0) [facility] RDW 16.3 % (10.5-14.5) [facility] PLT 272 10*3/uL (150-450) [facility] MPV 6.8 fL (7.1-10.7) [facility] ID Date Data Source [id number] 09/01/2019 06:30:44 PM EST [facility] Name Value Range Interpretation Code Description Data Bren rce(s) Supporting Document(s) POC NOVA GLU 142 mg/dL (70-99) [facility] ID Date Data Source [id number] 09/01/2019 10:26:14 AM EST [facility] Name Value Range Interpretation Code Description Data Bren rce(s) Supporting Document(s) POC NOVA GLU 209 mg/dL (70-99) [facility] ID Date Data Source [id number] 09/01/2019 09:30:36 AM EST [facility] Name Value Range Interpretation Code Description Data Bren rce(s) Supporting Document(s) SODIUM 140 mmol/L (136-145) [facility] POTASSIUM 3.2 mmol/L (3.6-5.2) [facility] CHLORIDE 102 mmol/L (100-108) [facility] CO2 26 mmol/L (22-31) [facility] ANION GAP 12 mmol/L (7-16) [facility] UREA NITROGEN 9 mg/dL (7-24) [facility] CREATININE 0.70 mg/dL (0.60-1.00) [facility] BUN/CREAT RATIO 12.9 RATIO (10.0-20.0) [facility] GLUCOSE 177 mg/dL (70-99) [facility] CALCIUM 8.6 mg/dL (8.4-10.2) [facility] GFR >60 ml/min/1.73m2 (>59) [facility] GFR ( AMER) >60 ml/min/1.73m2 (>59) [facility] GFR INTERPRETATION [facility] --NORMAL KIDNEY FUNCTION OR MILD DISEASE - GFR >OR= 60CHRONIC KIDNEY DISEASE - GFR 15 - 59RENAL FAILURE - GFR <15 Est. GFR calculation based on the MDRDstudy equation, which assumes a steadystate for creatinine. Est. GFR should notbe used for medication dosing. ID Date Data Source [id number] 09/01/2019 09:30:36 AM EST [facility] Name Value Range Interpretation Code Description Data [place] campuse(s) Supporting Document(s) MAGNESIUM 1.7 mg/dL (1.7-2.4) [facility] ID Date Data Source [id number] 09/01/2019 09:07:31 AM EST [facility] Name Value Range Interpretation Code Description Data Bren rce(s) Supporting Document(s) WBC 5.0 10*3/uL (4.1-11.0) [facility] RBC 3.61 10*6/uL (4.00-5.40) [facility] HGB 12.6 g/dL (12.0-16.0) [facility] HCT 37.3 % (36.0-47.0) [facility] MCV 103.3 fL (80.0-95.0) [facility] MCH 34.8 pg (27.0-32.0) [facility] MCHC 33.7 g/dL (32.0-36.0) [facility] RDW 16.2 % (10.5-14.5) [facility] PLT 353 10*3/uL (150-450) [facility] MPV 6.4 fL (7.1-10.7) [facility] ID Date Data Source [id number] 08/31/2019 10:15:29 PM EST [facility] Name Value Range Interpretation Code Description Data Bren rce(s) Supporting Document(s) POC NOVA GLU 133 mg/dL (70-99) [facility] ID Date Data Source [id number] 08/31/2019 04:58:50 PM EST [facility] Name Value Range Interpretation Code Description Data Bren rce(s) Supporting Document(s) POC NOVA GLU 150 mg/dL (70-99) [facility] ID Date Data Source [id number] 08/31/2019 11:46:12 AM EST [facility] Name Value Range Interpretation Code Description Data Bren rce(s) Supporting Document(s) POC NOVA GLU 231 mg/dL (70-99) [facility] ID Date Data Source [id number] 08/31/2019 09:05:13 AM EST [facility] Name Value Range Interpretation Code Description Data Bren rce(s) Supporting Document(s) POC NOVA GLU 182 mg/dL (70-99) [facility] ID Date Data Source [id number] 08/31/2019 11:25:06 AM EST [facility] Name Value Range Interpretation Code Description Data Bren rce(s) Supporting Document(s) MAGNESIUM 1.7 mg/dL (1.7-2.4) [facility] ID Date Data Source [id number] 08/31/2019 07:53:12 AM EST [facility] Name Value Range Interpretation Code Description Data Bren rce(s) Supporting Document(s) SODIUM 140 mmol/L (136-145) [facility] POTASSIUM 3.0 mmol/L (3.6-5.2) [facility] CHLORIDE 100 mmol/L (100-108) [facility] CO2 34 mmol/L (22-31) [facility] ANION GAP 6 mmol/L (7-16) [facility] UREA NITROGEN 5 mg/dL (7-24) [facility] CREATININE 0.54 mg/dL (0.60-1.00) [facility] BUN/CREAT RATIO 9.3 RATIO (10.0-20.0) [facility] GLUCOSE 168 mg/dL (70-99) [facility] CALCIUM 8.5 mg/dL (8.4-10.2) [facility] GFR >60 ml/min/1.73m2 (>59) [facility] GFR ( AMER) >60 ml/min/1.73m2 (>59) [facility] GFR INTERPRETATION [facility] --NORMAL KIDNEY FUNCTION OR MILD DISEASE - GFR >OR= 60CHRONIC KIDNEY DISEASE - GFR 15 - 59RENAL FAILURE - GFR <15 Est. GFR calculation based on the MDRDstudy equation, which assumes a steadystate for creatinine. Est. GFR should notbe used for medication dosing. ID Date Data Source [id number] 08/31/2019 07:01:43 AM EST [facility] Name Value Range Interpretation Code Description Data Bren rce(s) Supporting Document(s) WBC 5.5 10*3/uL (4.1-11.0) [facility] RBC 3.33 10*6/uL (4.00-5.40) L [facility] HGB 11.8 g/dL (12.0-16.0) L [facility] HCT 34.2 % (36.0-47.0) L [facility] MCV 102.6 fL (80.0-95.0) H [facility] MCH 35.4 pg (27.0-32.0) H [facility] MCHC 34.5 g/dL (32.0-36.0) [facility] RDW 15.7 % (10.5-14.5) H [facility] PLT 281 10*3/uL (150-450) [facility] MPV 6.5 fL (7.1-10.7) L [facility] ID Date Data Source [id number] 08/30/2019 05:26:52 PM EST [facility] Name Value Range Interpretation Code Description Data Bren rce(s) Supporting Document(s) POC NOVA GLU 155 mg/dL (70-99) H [facility] PERFORMED BY [facility] ID Date Data Source [id number] 08/30/2019 12:36:32 PM EST [facility] Name Value Range Interpretation Code Description Data Bren rce(s) Supporting Document(s) POC NOVA GLU 231 mg/dL (70-99) H [facility] ID Date Data Source [id number] 08/29/2019 06:58:01 PM EST [facility] Name Value Range Interpretation Code Description Data Bren rce(s) Supporting Document(s) POC NOVA GLU 147 mg/dL (70-99) H [facility] ID Date Data Source [id number] 08/29/2019 03:46:28 PM EST [facility] Name Value Range Interpretation Code Description Data Bren rce(s) Supporting Document(s) POC NOVA GLU 206 mg/dL (70-99) H [facility] ID Date Data Source [id number] 08/29/2019 09:04:52 AM EST [facility] Name Value Range Interpretation Code Description Data Bren rce(s) Supporting Document(s) POC NOVA GLU 177 mg/dL (70-99) H [facility] ID Date Data Source [id number] 08/29/2019 10:10:09 AM EST [facility] Name Value Range Interpretation Code Description Data Bren rce(s) Supporting Document(s) SODIUM 141 mmol/L (136-145) [facility] POTASSIUM 3.6 mmol/L (3.6-5.2) [facility] CHLORIDE 105 mmol/L (100-108) [facility] CO2 29 mmol/L (22-31) [facility] ANION GAP 7 mmol/L (7-16) [facility] UREA NITROGEN 11 mg/dL (7-24) [facility] CREATININE 0.59 mg/dL (0.60-1.00) L [facility] BUN/CREAT RATIO 18.6 RATIO (10.0-20.0) [facility] GLUCOSE 183 mg/dL (70-99) H [facility] CALCIUM 7.9 mg/dL (8.4-10.2) L [facility] GFR >60 ml/min/1.73m2 (>59) [facility] GFR ( AMER) >60 ml/min/1.73m2 (>59) [facility] GFR INTERPRETATION [facility] --NORMAL KIDNEY FUNCTION OR MILD DISEASE - GFR >OR= 60CHRONIC KIDNEY DISEASE - GFR 15 - 59RENAL FAILURE - GFR <15 Est. GFR calculation based on the MDRDstudy equation, which assumes a steadystate for creatinine. Est. GFR should notbe used for medication dosing. ID Date Data Source [id number] 08/29/2019 09:38:39 AM EST [facility] Name Value Range Interpretation Code Description Data Bren rce(s) Supporting Document(s) WBC 5.0 10*3/uL (4.1-11.0) [facility] RBC 3.32 10*6/uL (4.00-5.40) L [facility] HGB 11.8 g/dL (12.0-16.0) L [facility] HCT 34.9 % (36.0-47.0) L [facility] MCV 105.4 fL (80.0-95.0) H [facility] MCH 35.6 pg (27.0-32.0) H [facility] MCHC 33.8 g/dL (32.0-36.0) [facility] RDW 16.7 % (10.5-14.5) H [facility] PLT 304 10*3/uL (150-450) [facility] MPV 6.5 fL (7.1-10.7) L [facility] ID Date Data Source [id number] 08/28/2019 07:14:27 PM EST [facility] Name Value Range Interpretation Code Description Data Bren rce(s) Supporting Document(s) POC NOVA GLU 176 mg/dL (70-99) H [facility] ID Date Data Source [id number] 08/28/2019 02:47:19 PM EST [facility] INFORMATIONPatient MRN Name Date of Age Gend*PT [id number] 1975 43 years F IPPT Location Admission Date/Time Visit ID Attending Provider --- --- --- --- EPI ID CSN Admitting Provider [id number] ---AirwayPatient location during procedure: ORUrgency: electiveDifficult airway: noAdvanced airway equipment used: yesStaffingPerformed by: Guerrero Reynoso CRNAAnesthesiologist: Kapil Wilde MDIndications and Patient ConditionIndications for airway management: anesthesiaPreoxygenated: yesPatient position: sniffingIn-line stabilization: noMask ventilation: 2 - vent by mask + OA or adjuvant +/- NMBAFinal Airway/ApproachesFinal airway type: ETTNumber of attempts at final approach: 1Number of other approaches attempted: 0Final Airway DetailsFinal ETT airway: ETT - singleCuffed: yesTechnique used for successful ETT placement: GlidescopeCricoid pressure: noRSI: noInsertion site: oralBlade type/size: MAC 3ETT size: 7.5 mmMeasured from: lipsETT to lips: 23 cmPlacement verified by: chest auscultation and + CLSI3Ynnnmgpwwmjw: equal breath sounds bilateralGrade view: grade I - full view of glottis Name Value Range Interpretation Code Description Data Bren rce(s) Supporting Document(s) ID Date Data Source [id number] 08/28/2019 01:42:10 PM EST [facility] Name Value Range Interpretation Code Description Data Bren rce(s) Supporting Document(s) POC NOVA GLU 238 mg/dL (70-99) H [facility] ID Date Data Source [id number] 08/28/2019 12:09:02 PM EST [facility] Name Value Range Interpretation Code Description Data Bren rce(s) Supporting Document(s) POC NOVA GLU 287 mg/dL (70-99) H [facility] ID Date Data Source [id number] 08/28/2019 08:38:01 AM EST [facility] Name Value Range Interpretation Code Description Data Bren rce(s) Supporting Document(s) EKG [facility] KBBQVk2sSjBOCpHye2NaUzSgHKUaJZ5gkyy9Z2D1pDMbP8QumAAig7tdR1NwO0EfWDWlBAZSNK9LeOAi jb2 [file] +IQgEo8NknbffEX+fe9wb07gtFUmKxylhZ2k0ZtJHs+W0r8GjrSw/Rky1xaVqs8C0+rwMoNx3zD25i Z9aS+tUqqwaD57lzF6Tnq34myVbLftu6b2tWdlhlEB u4xfln68CxZ7LR3ZmCxyMxAzzt/2sFAkLSlCke3hIuX1rqrvqrjA+APf8/xCRF8GgCgf4H9U/jrInnvX 894iuU87y/icvc41qnv6RFfn6D21MP3tDeni8cGxfbyuBdU78Faeh/9oif/eWf83L/TmX/OS/3fcee6+ PfHlxr0xeOqGOy+M5+97rLC3ndmD/9axLtC7hHeluw +lDpiHyEmSTHOzh98fr3a/hK7yu+wxhr23vV/zueM/Database Marketing Manager+bPvyankFO9YFe3AZahMp8QG4U7GXdsWbq 0Oj77841I66JovgnOTVfSSa2hswd2+GroXFy+ErryDEz/YS1aiPcgtX4ecWyoUoIdjL00YdNcO7oV1BL u2Qo7Et74Sxj4483vJJtQIu+UCBSuyHt1Aa94q6Mwf 80KRsnaKkb8Q/jxcczu6hf+h+gcih1A6Bm+rjiPd0U5KpmjGfmiDn+Nb5zrGcMki/7q0m/sjzxndRzWs e7vTFI71y6VSWw6g/1HatN+cMeZfqW5RoSeyjyHY7hqrDqQvC+eKEufIiFC2vM/R0YR0pBkYuFR8g/5j k1ENx9ppEvWeaTZssBBiLykBckT1x1fJV7rjqLscjf re2owSoovR8fEuF+UP2o/eIJzBfjMLN9QZv9KbuHDlyVNl6ilJtRztbIQ1j8wr/cdZcx7C53yP2lHx1o /aDaX/pR0iNYefYVMC+d6oSav6qLUz1e1c0BTrhBzn6Ec/aKsw0Nroj+z78jkqUKol2twKbZ22d9rXs/ tBkl3h4w/jmWgPf/I+uwcp/JrHuOsr4ztn++WqrD4a ut/tV+6WpfwdUuo9kw9/d62f2uCY7m/pP9nF+5S8/fuf89h/8/t7Z/zsv9c+7957zcPy/Zf87L/fOd++ v86N4xoF/Oy/8u5U1bYn0/Y9d+cEjO/WB/JuQ8R+gJxjDMmzRjpQl5ln0Rg5I2zyS93Yoiqr6oNMEo+E 1o26JfM6afvaT38lEqaNt/6qne9O9lIU/U88o5u1nr HS3nqqbHzI43lWpdnsn75Xdz/l/xHa2/+n1Py8sAZ078eKMep1911Emjxd+oPtV+6RR0t7JZmsME5LSh 7zXlnOa/2kCJaF1mzSNy7AknRRPM3BjhRB94bPF+u/cWwgIGG9H2Vj2J/0kzlgrq0nn0V/gXqg4u0/+1 7p/4RxkaHtrmM7UK9PepdW3h81Ppd1fuM3Cziee83R qLIohOC7tqPxueUEze3kkSXon6+VhxmgRvZf6nk2GEm3N+HsgFckCukJMn+3Q1W5rxpLVkkt4Yt4P3dZ NA/9d27n2QIJ235vVB/uW1ed2vW50PbSm6euGGc6aP+iT3pt09AnK0S77GhNWTzrCi+ROE3Q9UvdC8+/ +J7y/PdghO7BaO8k1tS9crJVtCNm137Hgp8Bb2uMO9 eHNZe308W/UM2zCSz39EZeYi/P+AXCGfckPfP+U+kgfkU+6kpnJ7fjYRLujP2PG465rD+pXlBrlDHvjt zDocvqrK/3vexsG6CZ+Urxu643Agf5m0Z+gqWUiqy8wVh6EJ45f/tWUqkko5YRcB/U8y3pj1in//75f3 wcZJ8oUfc3G+oSf/zLj9H1T5k4g6bq92Tti3RTc/c1 7unw/Luigi+fl/nmE/HSu7tox5o/eEaUpFPe8aP8emEXY4TyaT7Gj8D652Woywrfdz6XpK2+MmXrOEF+pHW qncaK0HGxbW1uA/k7OUa0BH+GpuK9jqblNaZH31ZzxPLAvpw3e4iuJoVlQ6O8M1wjre8Ko20QJ57eca2 F247zcT4+d+vPQ+IWOr854ipjSl6/9T9aZz/VP3mOe 25+1Wm3Ax3p0vrjfxG4ta2+0iv3kb2jeUk9QeoqV3Vqm55nw1M1Jzh7Xz29Eo7nx52Ymjn+p/sQAS4z6 w96oeCN/ur93X75ni/N5jpB72jo32AHl0gct0JkGupRcFbJ6sbMFPcT/J/Joanna/rVFF+ddpvRIQ/IaR+c [file] TIH5hwMs7pVgWaEOMXM6Noj9VrSLKcIYDMFm9+FgF1ZGV2dODsPkr3LNV7AEdqNUILEs== ID Date Data Source [id number] 08/28/2019 08:35:39 AM EST [facility] Name Value Range Interpretation Code Description Data Bren rce(s) Supporting Document(s) POC NOVA GLU 188 mg/dL (70-99) H [facility] ID Date Data Source [id number] 09/05/2019 10:15:05 AM EST [facility] [id number]# Surgical Pathology ReportAccession #:[id number](s) ReceivedA: Ileum and colonClinical Diagnosis and HistorySmall bowel obstruction; Crohn's diseaseDIAGNOSISILEUM AND COLON, RESECTION: CHRONIC ENTEROCOLITIS, MODERATE ACTIVITY, WITH FOCAL DEEP ULCER, ADHESIONS, TRANSMURAL INFLAMMATION AND CRYPT ARCHITECTURAL DISTORTION CONSISTENT WITH CROHN'S DISEASE NO DYSPLASIA IS PRESENTCommentsThe sections of terminal ileum show intact architecture and only focalmild expansion of the lamina propria. The sections of the colon andanastomosis show a deep ulcer, extending into the submucosa, focally, andtransmural patchy inflammation. Crypt abscess are noted but no granulomasare seen. Also noted are hypertrophic nerve trunks and pyloricmetaplasia. No dysplasia is present. The margins are free of significantinflammation. Gross DescriptionReceived in formalin labeled "ileum and colon" is a 12.1 cm stapled closedunoriented segment of small bowel displaying a cortez to red-purple shaggydull serosa with moderate adherent adipose tissue. The specimen is openedalong the antimesenteric border to show cortez to red-purple glisteningfinely granular mucosa with extremely edematous folds. The luminalcircumference measures 6.0 cm with a wall thickness averaging 0.6 cm. Nolesions or perforations are identified. Also received is a 12.2 cmstapled closed segment of bowel consisting of 7.0 cm of ileum and 5.2 cmof colon. The small bowel serosa is cortez to red-purple, smooth andglistening with a 4.0 x 2.5 cm area of adhesions located 2.5 cm from thestapled margin. The remainder of the specimen is diffusely surfaced byyellow lobulated fat. There is no appendix identified within the cecalpouch. The specimen is opened along the antimesenteric border to showtan-pink glistening mucosa with areas of bile staining. The folds areunremarkable and the specimen displays a luminal circumference of 4.5 cmwith a wall thickness of 0.5 cm. Within the distal aspect of the specimenthere is a 5.0 cm cortez-red ulcerated finely granular area within theterminal ileum extending to include and flatten the ileocecal valve. Theulceration extends to include the well healed previous anastomosis site. Sectioning through this anastomosis site shows multiple embedded cyndi. This slightly extends into the cecum. The remaining colonic mucosa istan-pink, glistening with focal areas of congestion and slightly flattenedfolds. The luminal circumference averages 6.5 cm with a wall thickness of0.5 cm. No perforations or lesions are identified. Sectioning throughthe adipose tissue shows yellow lobulated cut surfaces. No lymph nodesare identified. Java Jsf Developer sections are submitted as labeled:A1. Differentially inked resection margins from shorter segmentperpendicular A2- A3. Sections of first segment to include serosal adhesions A4. Differentially inked resection margins from second segment A5-A6. Sections of small bowel from second segment to include mucosalulceration A7. Previous anastomosis A8. Large bowel mucosa adjacent to anastomosisA9. Additional section of large bowel Processed at [facility], Histopathology, [address] [place] [address], [id number].rebecca/vinnie Reported: 09/05/2019Electronically Signed Out By Ty Hernández MD [facility] This report may include immunohistochemical or in-situ hybridizationresults. Testing was developed and the performance characteristicsdetermined by [facility] as required by CLIA '88. The FDAhas determined that approval for specific use is not necessary forclinical use. The quality of Hematoxylin and Eosin stains and asapplicable, for all immunohistochemical and/or special stains, includingpositive and negative controls, were reviewed and considered appropriate.ICD codes K56.609 K50.818CPT codesA: 83708D Name Value Range Interpretation Code Description Data Bren rce(s) Supporting Document(s) ID Date Data Source [id number] 08/28/2019 08:03:26 AM EST [facility] NT INFORMATIONPatient MRN Name Date of Age Gend*PT [id number] 1975 43 years F IPPT Location Admission Date/Time Visit ID Attending [id number] 08/26/19 1601 --- Ok Hester MD([id number]) EPI ID CSN Admitting Provider [id number] Ok Hester MD([id number])Pre-Procedure History and Physical:The history and physical were reviewed and no changes are noted.Ok Hester MD Name Value Range Interpretation Code Description Data Bren rce(s) Supporting Document(s) ID Date Data Source [id number] 08/28/2019 08:09:43 AM EST [facility] Name Value Range Interpretation Code Description Data Bren rce(s) Supporting Document(s) HCG, QUAL. SERUM (NEG) [facility] ID Date Data Source [id number] 08/28/2019 07:53:02 AM EST [facility] Name Value Range Interpretation Code Description Data Bren rce(s) Supporting Document(s) SODIUM 143 mmol/L (136-145) [facility] POTASSIUM 3.6 mmol/L (3.6-5.2) [facility] CHLORIDE 106 mmol/L (100-108) [facility] CO2 28 mmol/L (22-31) [facility] ANION GAP 9 mmol/L (7-16) [facility] UREA NITROGEN 14 mg/dL (7-24) [facility] CREATININE 0.60 mg/dL (0.60-1.00) [facility] BUN/CREAT RATIO 23.3 RATIO (10.0-20.0) H [facility] GLUCOSE 142 mg/dL (70-99) H [facility] CALCIUM 8.2 mg/dL (8.4-10.2) L [facility] GFR >60 ml/min/1.73m2 (>59) [facility] GFR ( AMER) >60 ml/min/1.73m2 (>59) [facility] GFR INTERPRETATION [facility] --NORMAL KIDNEY FUNCTION OR MILD DISEASE - GFR >OR= 60CHRONIC KIDNEY DISEASE - GFR 15 - 59RENAL FAILURE - GFR <15 Est. GFR calculation based on the MDRDstudy equation, which assumes a steadystate for creatinine. Est. GFR should notbe used for medication dosing. ID Date Data Source [id number] 08/28/2019 07:44:03 AM EST [facility] Name Value Range Interpretation Code Description Data Bren rce(s) Supporting Document(s) WBC 4.5 10*3/uL (4.1-11.0) [facility] RBC 3.49 10*6/uL (4.00-5.40) L [facility] HGB 12.3 g/dL (12.0-16.0) [facility] HCT 36.1 % (36.0-47.0) [facility] MCV 103.6 fL (80.0-95.0) H [facility] MCH 35.4 pg (27.0-32.0) H [facility] MCHC 34.2 g/dL (32.0-36.0) [facility] RDW 16.4 % (10.5-14.5) H [facility] PLT 288 10*3/uL (150-450) [facility] MPV 6.8 fL (7.1-10.7) L [facility] ID Date Data Source [id number] 08/27/2019 08:33:35 PM EST [facility] Name Value Range Interpretation Code Description Data Bren rce(s) Supporting Document(s) POC NOVA GLU 194 mg/dL (70-99) H [facility] ID Date Data Source [id number] 08/27/2019 06:02:48 PM EST [facility] Name Value Range Interpretation Code Description Data Bren rce(s) Supporting Document(s) POC NOVA GLU 216 mg/dL (70-99) H [facility] ID Date Data Source [id number] 08/27/2019 01:11:00 PM EST [facility] Name Value Range Interpretation Code Description Data Bren rce(s) Supporting Document(s) POC NOVA GLU 302 mg/dL (70-99) H [facility] ID Date Data Source [id number] 08/27/2019 09:38:19 PM EST [facility] Name Value Range Interpretation Code Description Data Bren rce(s) Supporting Document(s) HEMOGLOBIN A1C @ 10.7 % (4.0-6.0) H [facility] Performed using Siemens Byron immunoassa y.Care must be taken when interpreting XvB6awyidsnb in patients with a hemoglobin variantor decreased erythrocyte lifespan. Values 5.7 - 6.4% suggest prediabetes.Values >=6.5% are diagnostic for diabetes.REFERENCE: DIABETES CARE 2018: 41(S13-S27).PERFORMED AT [address] [place] [address] EST AVERAGE GLUCOSE 260 mg/dL [facility] ID Date Data Source [id number] 08/27/2019 02:24:17 PM EST [facility] SPEC EXP DATE 08/30/2019PATI ENT ABO/Rh B POSITIVEANTIBODY SCREEN NEGATIVETESTING SITE PERFORMED AT [address] [place] [address] 16489KNTVO BANK COMMENT BLOOD TYPE CONFIRMED. Name Value Range Interpretation Code Description Data Bren rce(s) Supporting Document(s) TYPE AND SCREEN [facility] ID Date Data Source [id number] 08/27/2019 10:31:14 AM EST [facility] INFORMATIONPatient MRN Name Date of Age Gend*PT [id number] 1975 43 years F OBSPT Location Admission Date/Time Visit ID Attending [id number] 08/26/19 1601 --- Ok Hester MD([id number]) EPI ID CSN Admitting Provider [id number] Ok Hester MD([id number])Inpatient Consult NoteUlysses Sheffield Dr. for consult: SBOImpression and Recommendations:Principal Problem: SBO (small bowel obstruction)Active Problems: Crohn's disease Diabetes 1.SBO from ileal Crohns disease. Unable to get patient to steroid freeremission. 3rd SBO this years. I've discussed with the patient and also with Crystal, I think at this point surgery is the most attractive option as she hashad good remission for 20 years after first surgery. She has had cimzia in t hepast which worked somewhat but still required steroid for control. She has had 2infusion of stelera and as of yet seen improvement. 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 She was doing well for last 15-20 years. This year hasbeen having more rlq pain and also fistula development over the last 5 years.She has had 3 episodes of SBO so far with last 2 needing NGT suction. Patientwas previously treated conservatively with iv steroid tra nsitioning to POsteroid, 6MP, and cimzia. She had colonoscopy done 05/[address] Tucker whofound her to have stricturing at the ileocolonic anastomosis. At the time shewas already on 40mg of prednisone. She had transitioned to Stelera over the past16 weeks - 2 infusions given and has yet to see improvement. Patient was givenoral steroid taper since the colonoscopy and has remained on 10mg of prednisonewhich somewhat controls her symptoms. She came in with nausea, crampy abd painsimilar to the SBO she had previously. She was planning for an outpatient visitwith Dr Hester for an elective resection.Past Medical History:Past Medical History:Diagnosis Date Crohn's disease Diabetes mellitus type 2 in obese Hypertension Nephrolithiasis kidney stones Obesity Sinusitis Sleep apnea "mild" wears a cpap at night Vitamin D deficiencyPast Surgical History:Past Surgical History:Procedure Laterality Date ANAL FISTULOTOMY N/A 09/08/2016 Procedure: DRAINAGE OF ABCESS AND FISTULOTOMY ; Surgeon: Ok Hester MD;Location: [facility]; Service: Colorectal; Laterality: N/A; ANAL FISTULOTOMY N/A 05/06/2016 Procedure: ANAL FISTULOTOMY WITH SETON PLACEMENT; Surgeon: Ok Hester MD;Location: [facility]; Service: Colorectal; Laterality: N/A; ANAL FISTULOTOMY N/A 12/29/2017 Procedure: FISTULOTOMY ANAL; Surgeon: Ok Hester MD; Laterality: N/A; APPENDECTOMY CHOLECYSTECTOMY COLONOSCOPY 2015 CYSTOSCOPY INCISION AND DRAINAGE PERIRECTAL ABSCESS N/A 01/07/2016 Procedure: INCISION AND DRAINAGE RECTAL ABSCESS; Surgeon: Ok Hester MD;Location: [facility]; Service: Colorectal; Laterality: N/A; INCISION AND DRAINAGE PERIRECTAL ABSCESS N/A 12/16/2015 Procedure: INCISION AND DRAINAGE ISCHIORECTAL ABSCESS; Surgeon: Ok Hester MD; Location: [facility]; Service: Colorectal; Laterality: N/A; INCISION AND DRAINAGE PERIRECTAL ABSCESS N/A 11/13/2015 Procedure: INCISION AND DRAINAGE RECTAL ABSCESS WITH SETON PLACEMENT ;Surgeon: Ok Hester MD; Location: [facility]; Service: Colorectal;Laterality: N/A; INCISION AND DRAINAGE PERIRECTAL ABSCESS N/A 11/17/2016 Procedure: INCISION AND DRAINAGE ISCHIORECTAL ABSCESS; Surgeon: Ok Hester MD; Location: [facility]; Service: Colorectal; Laterality: N/A; LITHOTRIPSY X3 Small Bowel Obstruction Small Bowel Resection terminal ileum resection 2002 TONSILLECTOMY & AdenoidsMedications:Medications Prior to AdmissionMedication Sig Dispense Refill Last Dose Certolizumab Pegol (CIMZIA) 2 X 200 MG KIT Inject under the skin every 30(thirty) days 12/08/2017 cholecalciferol (VITAMIN D3) 400 UNITS CAPS Take 2,000 Units by mouth daily12/26/2017 hydrochlorothiazide (HYDRODIURIL) 12.5 MG tablet Take 12.5 mg by mouth daily11/16/2016 at Unknown time Multiple Vitamin (MULTIVITAMIN) tablet Take 1 tablet by mouth Unknown atUnknown time Probiotic Product (PROBIOTIC DAILY PO) Take by mouth 12/22/2017 vitamin B-12 (CYANOCOBALAMIN) 500 MCG tablet Take 1,000 mcg by mouth daily12/26/2017 vitamin D, Ergocalciferol, 73774 UNITS CAPS Take 1 capsule by mouth once aweek 12/24/2017Allergies:Tegretol [carbamazepine]Family History:Family HistoryProblem Relation Age of Onset Colon cancer Mother Lung cancer Father Hypertension Father Ulcerative colitis BrotherSocial History:Social HistoryTobacco Use Smoking status: Never Smoker Smokeless tobacco: Never UsedSubstance Use Topics Alcohol use: Yes Comment: rarely Drug use: NoReview of Systems:All systems were reviewed and found negative except for those mentioned in theHPI.Physical Exam:Temp: [97.6 F-97.9 F] 97.9 FHeart Rate: [85-98] 85Resp: [16] 16BP: (100-123)/(66-75) 123/72Awake, alert, oriented times 3.General appearance: alert, appears stated age, cooperative, no distress andmorbidly obeseLungs: Clear to auscultation bilaterally.Abdomen: soft, nondistended, mild rlq tenderness.Skin: No rash or lumps.Labs, Imaging and Other Diagnostics:Diagnostic tests reviewed:Labs from [facility] Brief:Lab ResultsComponent Value Date WBC 3.0 (L) 08/27/2019 HGB 12.8 08/27/2019 HCT 38.1 08/27/2019 PLT 319 08/27/2019CMP:Lab ResultsComponent Value Date NA 138 08/27/2019 K 4.3 08/27/2019 CL 100 08/27/2019 CO2 29 08/27/2019 ANIONGAP 9 08/27/2019 BUN 16 08/27/2019 CREATININE 0.73 08/27/2019 CREATININE 0.6 11/13/2015 BCR 21.9 (H) 08/27/2019 GLU 296 (H) 08/27/2019 CALCIUM 8.4 08/27/2019 ALBUMIN 2.9 (L) 08/27/2019 GFRAA >60 08/27/2019 GFRNONAA >60 08/27/2019Coags: No results found for: PROTIME, INR, APTT, [id number]/30/2019: Colonoscopy. Prpe was adequate. 1 seton removed from rectum.Narrowing around rectal opening with thickened skin externally. Vascularcongestion in the anal canal. Stricture in the anastomosis at the terminal ileumopening. (Biopsy). Friable granulated tissue with ulcerations in the end to sideanastomosis in ascending colon. Normal mucosa in the right and left ascendingcolon. (Biopsy).Pathology. Anastomosis at the terminal ileum opening, biopsy: Fragments of ilealand colonic glandular mucosa showing moderate acute and chronic inflammation,nonspecific. Right and left ascending colon, biopsy: Essentially normal colonicmucosa.06/03/2019: SBFT. It was difficult to see the terminal ileum fill adequatelyeven with compression and multiple different tube angles. At the terminal ileumthere is mucosal thickening and luminal narrowing without obstruction. This iscompatible with findings on prior CT scan dated on 05/16/2019.Signature: Noemi Weston Bry, MDDate: August 27, 2019Time: 10:17 AM Name Value Range Interpretation Code Description Data Bren rce(s) Supporting Document(s) ID Date Data Source [id number] 08/27/2019 10:01:14 AM EST [facility] INFORMATIONPatient MRN Name Date of Age Gend*PT [id number] [address] 1975 43 years F OBSPT Location Admission Date/Time Visit ID Attending [id number] 08/26/19 1601 --- Ok Hester MD([id number]) EPI ID CSN Admitting Provider [id number] Ok Hester MD([id number])Patient is transferred with exacerbation of her Crohn's disease. She presentswith crampy abdominal pains and nausea. She is not had any episodes of emesis.She had worsening of her symptoms while hospitalized in [place]. He has aknown history of recurrent ileal disease. She is currently on Stelara,6-mercaptopurine and steroids. Today she feels significantly better. She isless bloated. Her abdominal pains have improved. She has had gas per rectum. We discussed that she has recurrent ileal disease. We discussed the option ofileal resection. We discussed the option of continued conservative treatment.I reviewed with her that I felt that she and gastroenterology should make thefinal decisions. We discussed that if surgery is to be performed she will be inthe hospital for multiple days. I discussed with her that often with severeCrohn's disease it is difficult to do the procedure entirely laparoscopic. Wediscussed some of the potential complications. I discussed that anastomoticleak requiring emergency surgery and diverting ostomy is an increased risk withpatients with Crohn's disease who are under therapy with immunosuppressivemeds.We discussed the risk of intra- abdominal bleeding. We discussed the riskof intra-abdominal infections, wound infections and wound hernias. We discussedan increased risk for injury to surrounding structures. She has a history of anileocolic resection approximately 20 years ago. She has a history of agallbladder laparoscopically many years ago. No other intra-abdominalsurgeries.Physical exam the patient has a soft abdomen today. She is not tender today.Plan: Plan is to set her up for surgical resection if gastroenterology feelsthis is the best choice if they feel that they want to continue with medicaltherapy then we will follow their lead. Name Value Range Interpretation Code Description Data Bren rce(s) Supporting Document(s) ID Date Data Source [id number] 08/27/2019 09:56:46 AM EST [facility] NT INFORMATIONPatient MRN Name Date of Age Gend*PT [id number] [address] 1975 43 years F OBSPT Location Admission Date/Time Visit ID Attending [id number] 08/26/19 1601 --- Ok Hester MD([id number]) EPI ID CSN Admitting Provider [id number] Ok Hester MD([id number]) Attestation signed by Ok Hester MD at 08/27/2019 9:56 AMSignature: ABI Figueroaate: August 27, 2019Time: 9:56 AM --Surgical Services History&PhysicalUlysses Sheffield Dr. 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 Hester, today with c/o Generalizedabdominal pain that started Monday night that came in waves. She hadassociated nausea, which has since resolved, and belching, but denies vomiting.Her tenderness is primarily in her RLQ now. Her last BM was Monday & amp; shenormally has 5-7 loose BM daily. She has had obstructions in the past, whichhave resolved with conservative treatment, but she has been told she has astricture, which has not been dilated. She has been treated for 20 years forCrohn's disease, has had multiple anal fissure surgery's and has been on chronicsteroids for over a year. Due to the steroids she recently was diagnosed with DMand HTN. She sees Dr Tucker for GI. She strained this morning to pass a tinyamount of gas and had BRB when she wiped, other than this incident she deniesBRBPR. Denies fever/chills, blurred vision, dizziness, headache, chest pain,palpitations, shortness of breath, numbness and tingling of extremities. Deniesurinary urgency/frequency/burning.Patient receives stelara Q8 weeks, was due last week, but did not receive as shewas being treated for a respiratory infection.Med rec is pending.PMH:Past Medical History:Diagnosis Date Crohn's disease Diabetes mellitus type 2 in obese Hypertension Nephrolithiasis kidney stones Obesity Sinusitis Sleep apnea "mild" wears a cpap at night Vitamin D deficiencyPSH:Past Surgical History:Procedure Laterality Date ANAL FISTULOTOMY N/A 09/08/2016 Procedure: DRAINAGE OF ABCESS AND FISTULOTOMY ; Surgeon: Ok Hester MD;Location: [facility]; Service: Colorectal; Laterality: N/A; ANAL FISTULOTOMY N/A 05/06/2016 Procedure: ANAL FISTULOTOMY WITH SETON PLACEMENT; Surgeon: Ok Hester MD;Location: [facility]; Service: Colorectal; Laterality: N/A; ANAL FISTULOTOMY N/A 12/29/2017 Procedure: FISTULOTOMY ANAL; Surgeon: Ok Hester MD; Laterality: N/A; APPENDECTOMY CHOLECYSTECTOMY COLONOSCOPY 2015 CYSTOSCOPY INCISION AND DRAINAGE PERIRECTAL ABSCESS N/A 01/07/2016 Procedure: INCISION AND DRAINAGE RECTAL ABSCESS; Surgeon: Ok Hester MD;Location: [facility]; Service: Colorectal; Laterality: N/A; INCISION AND DRAINAGE PERIRECTAL ABSCESS N/A 12/16/2015 Procedure: INCISION AND DRAINAGE ISCHIORECTAL ABSCESS; Surgeon: Ok Hester MD; Location: [facility]; Service: Colorectal; Laterality: N/A; INCISION AND DRAINAGE PERIRECTAL ABSCESS N/A 11/13/2015 Procedure: INCISION AND DRAINAGE RECTAL ABSCESS WITH SETON PLACEMENT ;Surgeon: Ok Hester MD; Location: [facility]; Service: Colorectal;Laterality: N/A; INCISION AND DRAINAGE PERIRECTAL ABSCESS N/A 11/17/2016 Procedure: INCISION AND DRAINAGE ISCHIORECTAL ABSCESS; Surgeon: Ok Hester MD; Location: [facility]; Service: Colorectal; Laterality: N/A; LITHOTRIPSY X3 Small Bowel Obstruction Small Bowel Resection terminal ileum resection 2002 TONSILLECTOMY & AdenoidsMEDICATIONS: Medication reconciliation will be completed separately.Medications Prior to AdmissionMedication Sig Dispense Refill Last Dose Certolizumab Pegol (CIMZIA) 2 X 200 MG KIT Inject under the skin every 30(thirty) days 12/08/2017 cholecalciferol (VITAMIN D3) 400 UNITS CAPS Take 2,000 Units by mouth daily12/26/2017 hydrochlorothiazide (HYDRODIURIL) 12.5 MG tablet Take 12.5 mg by mouth daily11/16/2016 at Unknown time Multiple Vitamin (MULTIVITAMIN) tablet Take 1 tablet by mouth Unknown atUnknown time Probiotic Product (PROBIOTIC DAILY PO) Take by mouth 12/22/2017 vitamin B-12 (CYANOCOBALAMIN) 500 MCG tablet Take 1,000 mcg by mouth daily12/26/2017 vitamin D, Ergocalciferol, 20530 UNITS CAPS Take 1 capsule by mouth once aweek 12/24/2017ALLERGY:AllergiesAllergen Reactions Tegretol [Carbamazepine] RashFH:Family HistoryProblem Relation Age of Onset Colon cancer Mother Lung cancer Father Hypertension Father Ulcerative colitis BrotherSH:Social HistoryTobacco Use Smoking status: Never Smoker Smokeless tobacco: Never UsedSubstance Use Topics Alcohol use: Yes Comment: rarely Drug use: NoROS:Constitutional: Denies fever, chills.HEENT: Denies recent visual or hearing changes.Respiratory: Denies cough, shortness of breath, wheezing, or hemoptysis.Cardiovascular: Denies chest pain or pressure, or palpitations.Gastrointestinal: see HPI.Genitourinary: Denies dysuria, hematuria or difficulty urinating.Extremities/Musculoskeletal: Denies current joint pain or muscle weakness.Neurological: Denies dizziness, seizures, speech difficulty, or headaches.Psychiatric: Denies anxiety or depression.Endocrine: Denies night sweats or temperature intolerance.Hematological: Denies unusual bruising or bleeding disorder.Integumentary: Denies current rashes or lesions.Allergic/Immunology: Denies current hives/itching.Physical Exam:BP 111/66 | Pulse 97 | Temp 97.6 F (Oral) | Resp 16 | SpO2 95%General: Alert, conversing appropriately, and cooperative.Skin: Warm and dry. No rashes/lesions.Head: Atraumatic, normocephalic.Eyes: PERRL. Sclerae anicteric, conjunctivae clear bilaterally.Ears: Hearing grossly intact, external ears normal.Nose: Symmetric.Mouth: Dentition is fair, oropharynx without exudates or lesions.Heart: G8U4Wclyc: CTA bilaterally. Respiratory effort non- labored.Abdomen: Obese, softly distended, minimally TTP RLQ, bowel sounds present, noguarding no rebound tenderness.Back: No CVA tenderness.Musculoskeletal: No muscle atrophy or weakness appreciated.Vascular/Ext: No calf tenderness or LE edema. Distal pulses intact.L abs, Imaging and other Diagnostics:Labs reviewed from [facility] 08/26/19 0539 as followsWBC 4.1H&H 12.8/38.3plt 287Cr 0.58CT abd/pelvis with IV contrastKUBChest XRAbove images on disc from [facility], Brought to imaging & awaiting uploads.Assessment and Plan:Principal Problem: SBO (small bowel obstruction)- Plan: VSS, afebrile, no leukocytosis. Patient discussed with Dr. Hester,direct admit to his service. Patient does not present with an acute surgicalabdomen, will manage conservatively at this time. NPO, IVF, anti-emetics &analgesics ordered. If she becomes nauseas & begins to vomit, may need toconsider NGT. Encouraged ambulation and pulmonary toileting. Further plan perattending.Active Problems: Crohn's disease- Plan: Stable, solu-medrol ordered. Awaiting med rec. Diabetes- Plan: Stable, humalog ordered, will monitor & adjust as needed.The patient has been encouraged to contact appropriate medical staff with anyquestions or concerns she may have in the interim. I have discussed thispatient with attending, Ok Hester MD. Further plan per the attendingphysician.DVT mechanical and pharmacological prophylaxisADOD: 3-4 daysCode status: Full CodeSignature: Dipika Rizzo Reynadiamantedevontediamante, NPJanuary 20197:06 PM Name Value Range Interpretation Code Description Data Bren rce(s) Supporting Document(s) ID Date Data Source [id number] 08/27/2019 08:01:23 AM EST [facility] Name Value Range Interpretation Code Description Data Bren rce(s) Supporting Document(s) POC NOVA GLU 308 mg/dL (70-99) H [facility] BY [facility] ID Date Data Source [id number] 08/27/2019 09:36:31 AM EST [facility] Name Value Range Interpretation Code Description Data Bren rce(s) Supporting Document(s) ALBUMIN 2.9 g/dL (3.5-4.6) L [facility] ID Date Data Source [id number] 08/27/2019 09:02:23 AM EST [facility] Name Value Range Interpretation Code Description Data Bren rce(s) Supporting Document(s) SODIUM 138 mmol/L (136-145) [facility] POTASSIUM 4.3 mmol/L (3.6-5.2) [facility] CHLORIDE 100 mmol/L (100-108) [facility] CO2 29 mmol/L (22-31) [facility] ANION GAP 9 mmol/L (7-16) [facility] UREA NITROGEN 16 mg/dL (7-24) [facility] CREATININE 0.73 mg/dL (0.60-1.00) [facility] BUN/CREAT RATIO 21.9 RATIO (10.0-20.0) [facility] GLUCOSE 296 mg/dL (70-99) H [facility] CALCIUM 8.4 mg/dL (8.4-10.2) [facility] GFR >60 ml/min/1.73m2 (>59) [facility] GFR ([facility] AM) >60 ml/min/1.73m2 (>59) [facility] GFR INTERPRETATION [facility] --NORMAL KIDNEY FUNCTION OR MILD DISEASE - GFR >OR= 60CHRONIC KIDNEY DISEASE - GFR 15 - 59RENAL FAILURE - GFR <15 Est. GFR calculation based on the MDRDstudy equation, which assumes a steadystate for creatinine. Est. GFR should notbe used for medication dosing. ID Date Data Source [id number] 08/27/2019 08:38:21 AM EST [facility] Name Value Range Interpretation Code Description Data Bren rce(s) Supporting Document(s) WBC 3.0 10*3/uL (4.1-11.0) L [facility] RBC 3.63 10*6/uL (4.00-5.40) L [facility] HGB 12.8 g/dL (12.0-16.0) [facility] HCT 38.1 % (36.0-47.0) [facility] PERFORMED AT [address] [place] [address] N [place] [address] MCV 104.8 fL (80.0-95.0) [facility] MCH 35.3 pg (27.0-32.0) [facility] MCHC 33.7 g/dL (32.0-36.0) [facility] RDW 16.2 % (10.5-14.5) [facility] PLT 319 10*3/uL (150-450) [facility] MPV 7.1 fL (7.1-10.7) [facility] Procedure Social History Code Duration Value Status Description Data Source(s ) Alcohol intake 09/01/2019 12:00:00 AM EST Yes completed [facility] Smoking 09/01/2019 12:00:00 AM EST Never smoker completed Never s moker [facility] Vital Signs ID Date Data Source UNK Name Value Range Interpretation Code Description Data Source(s) Body mass index (BMI) [Ratio] 41.3 kg/m2 41.3 k g/m2 [facility] ([facility]) Body weight 260.00 [lb_av] 260.00 [lb_av] [facility] Body height 66.50 [in_i] 66.50 [in_i] [facility] ([facility]) 5'6.50" Heart rate 68 /min 68 /min [facility] Diastolic blood pressure 68 mm[Hg] 68 mm[Hg] [facility] ([facility]) Systolic blood pressure 120 mm[Hg] 120 mm[Hg] [facility] ([facility]) Body mass index (BMI) [Ratio] 43.9 kg/m2 43.9 k g/m2 [facility] Body weight 276.00 [lb_av] 276.00 [lb_av] [facility] Body height 66.50 [in_i] 66.50 [in_i] [facility] ([facility]) 5'6.50" Heart rate 76 /min 76 /min [facility] ([facility]) Diastolic blood pressure 727 mm[Hg] 727 mm[Hg] [facility] ([facility]) Systolic blood pressure 118 mm[Hg] 118 mm[Hg] [facility] ([facility]) Body mass index (BMI) [Ratio] 47.1 kg/m2 47.1 k g/m2 [facility] ([facility]) Body weight 296.00 [lb_av] 296.00 [lb_av] [facility] ([facility]) Body height 66.50 [in_i] 66.50 [in_i] [facility] ([facility]) 5'6.50" Heart rate 82 /min 82 /min [facility] ([facility]) Diastolic blood pressure 76 mm[Hg] 76 mm[Hg] [facility] ([facility]) Systolic blood pressure 128 mm[Hg] 128 mm[Hg] [facility] ([facility]) Body mass index (BMI) [Ratio] 47.9 kg/m2 47.9 k g/m2 [facility] ([facility]) Body weight 297.00 [lb_av] 297.00 [lb_av] [facility] ([facility]) Body height 66 [in_i] 66 [in_i] [facility] ([facility]) 5'6" Body temperature 98.1 [degF] 98.1 [degF] [facility] ([facility]) Diastolic blood pressure 80 mm[Hg] 80 mm[Hg] [facility] ([facility]) Systolic blood pressure 122 mm[Hg] 122 mm[Hg] [facility] ([facility]) Body weight 296.00 [lb_av] 296.00 [lb_av] [facility] ([facility]) Heart rate 80 /min 80 /min [facility] ([facility]) Diastolic blood pressure 78 mm[Hg] 78 mm[Hg] [facility] ([facility]) Systolic blood pressure 128 mm[Hg] 128 mm[Hg] [facility] ([facility]) Body mass index (BMI) [Ratio] 47.6 kg/m2 47.6 k g/m2 [facility] ([facility]) Body weight 295.00 [lb_av] 295.00 [lb_av] [facility] ([facility]) Body height 66 [in_i] 66 [in_i] [facility] ([facility]) 5'6" Respiratory rate 18 /min 18 /min [facility] ( [facility]) Body temperature 97.9 [degF] 97.9 [degF] [facility] ([facility]) Heart rate 78 /min 78 /min [facility] ([facility]) Diastolic blood pressure 76 mm[Hg] 76 mm[Hg] [facility] ([facility]) Systolic blood pressure 120 mm[Hg] 120 mm[Hg] [facility] ([facility]) Oxygen saturation in Arterial blood by Pulse oximetry 93 % 93 % [facility] Respiratory rate 20 /min 20 /min [facility] Body temperature 36.78 Roro 36.78 Roro [facility] Heart rate 97 /min 97 /min [facility] Diastolic blood pressure 68 mm[Hg] 68 mm[Hg] [facility] Systolic blood pressure 105 mm[Hg] 105 mm[Hg] [facility] Body mass index (BMI) [Ratio] 49.55 kg/m2 49.55 kg/m2 [facility] Body weight 139.254 kg 139.254 kg [facility] Body height 167.6 cm 167.6 cm [facility] Patient Treatment Plan of Care Planned Activity Planned Date Details Description Data Source (s) Acetaminophen 325 MG / Hydrocodone Bitartrate 5 MG Ora l Tablet 09/03/2019 12:00:[address] [facility] cefdinir 300 MG Oral Capsule 08/18/2019 12:00:00 AM EST [facility] Multiple Vitamin (MULTIVITAMIN) tablet [facility] Probiotic Product (PROBIOTIC DAILY PO) [facility] Ergocalciferol 36822 UNT Oral Capsule [facility] certolizumab pegol 200 MG Injection [facility]
[2020-08-22 05:23] LABS: BASO % 0.1 % (0.0-1.0); EOS # 0.1 10^3/uL (0.0-0.5); EOS % 0.8 % (0.0-3.0); HEMATOCRIT 38.3 % (36.0-47.0); HEMOGLOBIN 12.3 g/dl (12.0-15.5); LYMPH # 1.7 10^3/uL (1.5-5.0); LYMPH % 21.4 % (24.0-44.0); MEAN CORPUSCULAR HEMOGLOBIN 33.5 pg (27.0-33.0); MEAN CORPUSCULAR HGB CONC 32.1 g/dl (32.0-36.5); MEAN CORPUSCULAR VOLUME 104.4 fl (80.0-96.0); MONO # 0.6 10^3/uL (0.0-0.8); MONO % 7.4 % (0.0-5.0); NEUTROPHILS # 5.4 10^3/uL (1.5-8.5); NEUTROPHILS % 69.5 % (36.0-66.0); PLATELET COUNT, AUTOMATED 181 10^3/uL (150-450); RED BLOOD COUNT 3.67 10^6/uL (4.00-5.40); WHITE BLOOD COUNT 7.7 10^3/uL (4.0-10.0)
[2020-08-22 05:40] LABS: INR 1.07; PROTHROMBIN TIME 14.1 SECONDS (12.5-14.3)
[2020-08-22 05:41] LABS: PARTIAL THROMBOPLASTIN TIME 37.9 SECONDS (24.2-38.5)
[2020-08-22 05:50] LABS: ALBUMIN 3.1 GM/DL (3.2-5.2); ALT/SGPT 46 U/L (12-78); BILIRUBIN,DIRECT 0.3 MG/DL (0.0-0.2); BILIRUBIN,TOTAL 0.9 MG/DL (0.2-1.0); BLOOD UREA NITROGEN 7 MG/DL (7-18); CALCIUM LEVEL 8.5 MG/DL (8.5-10.1); CARBON DIOXIDE LEVEL 26 MEQ/L (21-32); CHLORIDE LEVEL 102 MEQ/L (98-107); CREATININE FOR GFR 0.67 MG/DL (0.55-1.30); GLOMERULAR FILTRATION RATE > 60.0 (>58); GLUCOSE, FASTING 272 MG/DL (70-100); LIPASE 459 U/L (73-393); SODIUM LEVEL 139 MEQ/L (136-145); TOTAL PROTEIN 6.7 GM/DL (6.4-8.2)
--- NOTE | 2020-08-22 06:15 | REPVR ---
PROCEDURE INFORMATION: Exam: CT Abdomen And Pelvis With Contrast Exam date and time: 08/22/2020 5:05 AM Age: 44 years old Clinical indication: Abdominal pain; Generalized; Additional info: Abd pain eval for sbo TECHNIQUE: Imaging protocol: Computed tomography of the abdomen and pelvis with intravenous contrast. Radiation optimization: All CT scans at this facility use at least one of these dose optimization techniques: automated exposure control; mA and/or kV adjustment per patient size (includes targeted exams where dose is matched to clinical indication); or iterative reconstruction. Contrast material: ISIO; Contrast volume: 100 ml; Contrast route: INTRAVENOUS (IV); COMPARISON: CT ABD/PEL W/IV CONTRAST ONLY 06/23/2020 2:17 PM FINDINGS: Lungs: The visualized portions of the lung bases are normal. Liver: There is a diffuse decrease in attenuation of the liver, consistent with fatty liver. Gallbladder and bile ducts: There has been a cholecystectomy. There is no biliary ductal dilation. Pancreas: The pancreas is normal with no ductal dilation. Spleen: The spleen is normal. Adrenal glands: The adrenal glands are normal. Kidneys and ureters: There is a 4 x 4 x 5 mm mm obstructing stone in the proximal right ureter. The nephrograms appear symmetric. There is no significant perinephric stranding but there is proximal right periureteral stranding. A stone previously seen in the right kidney upper pole is no longer identified in that location, and has probably passed into the proximal ureter. There is a small nonobstructing stone in the left kidney lower pole. The left ureter appears normal with no stones or hydronephrosis. Stomach and bowel: The small bowel appears unremarkable. A suture line is again seen at the right colon which seems to be related to a cecectomy. There is no dilation or thickening of the colon. Appendix: The appendix is not identified and has probably been resected. Intraperitoneal space: There is no free intraperitoneal air. There is no evidence of free intraperitoneal or pelvic fluid. Vasculature: No aortic aneurysm. Lymph nodes: No lymphadenopathy is seen. Urinary bladder: The bladder is unremarkable. No stones identified. Reproductive: Low attenuation centrally in the uterus measuring 2.2 cm in thickness may be fluid in the endometrial cavity or thickening of the endometrium itself. A rounded area of low attenuation in the cervix is again seen, probably a relatively large nabothian cyst, measuring 2.1 cm in diameter. There are small bilateral ovarian cysts. The right ovarian cyst measures 3.2 x 3.7 cm and the left ovarian cyst measures 2.2 by 2.5 cm. A larger left ovarian cyst on the prior exam has either resolved or has decreased in size. Bones/joints: No acute fracture. There is facet arthropathy in the lumbar spine. Soft tissues: There is nonspecific edema in the subcutaneous tissues in the midline posteriorly in the lumbar region, unchanged. IMPRESSION: 1. Obstructing 4 x 4 x 5 mm mm proximal right ureteral stone with associated right-sided hydronephrosis and right proximal periureteral stranding. 2. Central low attenuation in the uterus may be fluid in the endometrial cavity or thickening of the endometrium itself. Follow-up with pelvic ultrasound is recommended, which can be performed on a nonurgent basis unless clinically indicated sooner. 3. Fatty liver. Electronically signed by: Lelia Dennis On 08/22/2020 06:14:58 AM
--- OUTSIDE RECORDS SUMMARY | 2020-08-22 06:19 | CCD ---
Author Author [facility] Organization [facility] Address Unknown Phone Unavailable Care Team Providers Care Tie Puller Name Role Phone Alexandra Humphries MD Unavailable [...] MD Unavailable Unavailable AnaAlexandra MD Unavailable Unavailable [place] MD Unavailable Unavailable AnaAlexandra MD Unavailable Unavailable [place] MD Unavailable Unavailable [place] MD Unavailable Unavailable AnaAlexandra MD Unavailable Unavailable AnaAlexandra MD Unavailable Unavailable [place] MD Unavailable Unavailable [place] MD Unavailable Unavailable [place] MD Unavailable Unavailable [place] MD Unavailable Unavailable [place] MD Unavailable Unavailable [place] MD Unavailable Unavailable [place] MD Unavailable Unavailable [place] MD Unavailable Unavailable AnaAlexandra MD Unavailable Unavailable AnaAlexandra MD Unavailable Unavailable AnaAlexandra MD Unavailable Unavailable [place] MD Unavailable Unavailable [place] MD Unavailable Unavailable [place] MD Unavailable Unavailable AnaAlexandra MD Unavailable Unavailable AnaAlexandra MD Unavailable Unavailable [place] MD Unavailable Unavailable [place] MD Unavailable Unavailable [place] MD Unavailable Unavailable AnaAlexandra MD Unavailable Unavailable AnaAlexandra MD Unavailable Unavailable AnaAlexandra MD Unavailable Unavailable [place] MD Unavailable Unavailable AnaAlexandra MD Unavailable Unavailable AnaAlexandra MD Unavailable Unavailable AnaAlexandra MD Unavailable Unavailable AnaAlexandra MD Unavailable Unavailable [place] caldera MD Unavailable Unavailable [place] MD Unavailable Unavailable AnaAlexandra MD Unavailable Unavailable AnaAlexandra caldera MD Unavailable Unavailable AnaAlexandra MD Unavailable Unavailable [place] MD Unavailable Unavailable AnaAlexandra caldera MD Unavailable Unavailable AnaAlexandra caldera MD Unavailable Unavailable [place] MD Unavailable Unavailable AnaAlexandra MD Unavailable Unavailable AnaAlexandra MD Unavailable Unavailable [place] MD Unavailable Unavailable [place] MD Unavailable Unavailable AnaAlexandra MD Unavailable Unavailable [place] MD Unavailable Unavailable [place] MD Unavailable Unavailable AnaAlexandra MD Unavailable Unavailable [place] MD Unavailable Unavailable [place] MD Unavailable Unavailable AnaAlexandra MD Unavailable Unavailable [place] MD Unavailable Unavailable [place], Alexandra Ferrara MD Unavailable Unavailable Ana, Alexandra Ferrara MD Unavailable Unavailable [place], Alexandra Ferrara MD Unavailable Unavailable Naa, Alexandra Ferrara MD Unavailable Unavailable [place], Alexandra Ferrara MD Unavailable Unavailable [place], Alexandra Ferrara MD Unavailable Unavailable [place], Alexandra Ferrara MD Unavailable Unavailable EV (ISADORA), Fiorella BURNS MD Unavailable Unavailab le EV (ISADORA), Fiorella BURNS MD Unavailable Unavailab le EV (ISADORA), Fiorella BURNS MD Unavailable Unavailab le EV (ISADORA), Fiorella BURNS MD Unavailable Unavailab le EV (ISADORA), Fiorella BURNS MD Unavailable Unavailab le EV (ISADORA), Firoella BURNS MD Unavailable Unavailab le EV (ISADORA), Fiorella BURNS MD Unavailable Unavailab le EV (ISADORA), Fiorella BURNS MD Unavailable Unavailab le EV (ISADORA), Fiorella BURNS MD Unavailable Unavailab le EV (ISADORA), Fiorella BURNS MD Unavailable Unavailab le EV (ISADORA), Fiorella BURNS MD Unavailable Unavailab le EV (ISADORA), Fiorella BURNS MD Unavailable Unavailab le EV (ISADORA), Fiorella BURNS MD Unavailable Unavailab le EV (IASDORA), Fiorella BURNS MD Unavailable Unavailab le EV [...] (ISADORA), Fiorella BURNS MD Unavailable Unavailab le VE (ISADORA), Fiorella BURNS MD Unavailable Unavailab le [...] Unavailable Unavailable Alexandra Humphries MD Unavailable Unavailable [place] MD Unavailable Unavailable AnaAlexandra MD Unavailable Unavailable AnaAlexandra MD Unavailable Unavailable [place] MD Unavailable Unavailable AnaAlexandra MD Unavailable Unavailable AnaAlexandra MD Unavailable Unavailable AnaAlexandra MD Unavailable Unavailable AnaAlexandra MD Unavailable Unavailable [place] MD Unavailable Unavailable AnaAlexandra MD Unavailable Unavailable AnaAlexandra MD Unavailable Unavailable AnaAlexandra MD Unavailable Unavailable [place] MD Unavailable Unavailable [place] MD Unavailable Unavailable AnaAlexandra MD Unavailable Unavailable AnaAlexandra MD Unavailable Unavailable [place] MD Unavailable Unavailable AnaAlexandra MD Unavailable Unavailable AnaAlexandra MD Unavailable Unavailable [place] MD Unavailable Unavailable AnaAlexandra MD Unavailable Unavailable [place] MD Unavailable Unavailable [place] MD Unavailable Unavailable AnaAlexandra MD Unavailable Unavailable AnaAlexandra MD Unavailable Unavailable AnaAlexandra MD Unavailable Unavailable AnaAlexandra MD Unavailable Unavailable AnaAlexandra MD Unavailable Unavailable [place] MD Unavailable Unavailable AnaAlexandra MD Unavailable Unavailable [place] MD Unavailable Unavailable AnaAlexandra MD Unavailable Unavailable AnaAlexandra MD Unavailable Unavailable AnaAlexandra MD Unavailable Unavailable AnaAlexandra MD Unavailable Unavailable AnaAlexandra MD Unavailable Unavailable [place] MD Unavailable Unavailable [place] MD Unavailable Unavailable AnaAlexandra MD Unavailable Unavailable [place] MD Unavailable Unavailable AnaAlexandra MD Unavailable Unavailable [place] MD Unavailable Unavailable [place] MD Unavailable Unavailable AnaAlexandra MD Unavailable Unavailable AnaAlexandra MD Unavailable Unavailable AnaAlexandra MD Unavailable Unavailable [place] MD Unavailable Unavailable AnaAlexandra MD Unavailable Unavailable AnaAlexandra MD Unavailable Unavailable [place] MD Unavailable Unavailable AnaAlexandra MD Unavailable Unavailable AnaAlexandra MD Unavailable Unavailable AnaAlexandra MD Unavailable Unavailable [place] MD Unavailable Unavailable [place] MD Unavailable Unavailable Ana, Alexandra Ferrara MD Unavailable Unavailable [place], Alexandra Ferrara MD Unavailable Unavailable Ana, F Brandin MD Unavailable Unavailable Ana, F Brandin MD Unavailable Unavailable [place], F Brandin MD Unavailable Unavailable Ana, F Brandin MD Unavailable Unavailable [place], F Brandin MD Unavailable Unavailable [place], F Brandin MD Unavailable Unavailable Ana, F Brandin MD Unavailable Unavailable Ana, F Brandin MD Unavailable Unavailable Ana, F Brandin MD Unavailable Unavailable Ana, F Brandin MD Unavailable Unavailable Ana, F Brandin MD Unavailable Unavailable [place], F Brandin MD Unavailable Unavailable [place], F Brandin MD Unavailable Unavailable Ana, F Brandni MD Unavailable Unavailable Ana, F Brandin MD Unavailable Unavailable [place], F Brandin MD Unavailable Unavailable Ana, F Brandin MD Unavailable Unavailable [place], F Brandin MD Unavailable Unavailable Ana, F Brandin MD Unavailable Unavailable Ana, F Brandin MD Unavailable Unavailable Ana, F Brandin MD Unavailable Unavailable Ana, F Brandin MD Unavailable Unavailable Ana, F Branidn MD Unavailable Unavailable Diamante Hester MD Unavailable Unavailable Diamante Hester MD Unavailable Unavailable Diamante Hester MD Unavailable Unavailable Diamante Hester MD Unavailable Unavailable Diamante Hester MD Unavailable Unavailable Diamante Hester MD Unavailable Unavailable Diamante Hester MD Unavailable Unavailable Diamante Hester MD Unavailable Unavailable Diamante Hester MD Unavailable Unavailable Diamante Hester MD Unavailable Unavailable Diamatne Hester MD Unavailable Unavailable Diamante Hester MD [...] Fiorella BURNS MD Unavailable Unavailab le EV (IASDORA), Fiorella BURNS MD Unavailable Unavailab le EV (ISADORA), Fiorella BURNS MD Unavailable Unavailab le EV (ISADORA), Fiorella BURNS MD Unavailable Unavailab le EV (ISADORA), Fiorella BURNS MD Unavailable Unavailab le EV (ISADORA), Fiorella BURNS MD Unavailable Unavailab le EV (ISADORA), Fiorella BURNS MD Unavailable Unavailab le EV (ISADORA), Fiorella BURNS MD Unavailable Unavailab le VE (ISADORA), Fiorella BURNS MD Unavailable Unavailab le [...] Fiorella BURNS MD Unavailable Unavailab le EV (ISADOAR), Fiorella BURNS MD Unavailable Unavailab le EV [...] is protected by Article 27-F of the [facility] Public Health law. If you continue you may have access to information: Regarding HIV / AIDS; Provided by facilities licensed or operated by the [facility] Office of Mental Health; or Provided by the [facility] Office for People With Developmental Disabilities. If such information is present, then the following [facility] mandated warning applies: This information has been [...] law may result in a fine or prison sentence or both. A general authorization for the release of medical or other information is NOT sufficient authorization for further disc losure. Family History Family Member Name Family Member Gender Family Member Status Date o f Status Description Data Source(s) Unknown Unknown Problem [facility] ([facility]) Unknown Female Problem [facility] ([facility] ) Encounters Encounter Providers Location Date Indications Data Source(s ) Unknown [address] [facility] [id number] 08/18/2020 12:00:00 AM EST eCW1 ([facility]) Outpatient Attender: Brandin Grimes 1 02:45:00 PM EDT MEDENT ([facility] ) Attender: GRANT TUCKER ([place]) MDReferrer: Cammie Humphries MD 02/13/2020 08:20:07 PM EDT [facility] Attender: GRANT TUCKER ([place]) MDReferrer: Cammie Humphries MD 02/13/2020 08:20:07 PM EDT [facility] Outpatient Attender: Brandin Grimes 0 01/27/2020 03:00:00 PM EDT MED[facility] ([facility] ) Outpatient Referrer: GRANT TUCKER MD [...] Grimes 0 11/22/2019 02:30:00 PM EDT MED[facility] ([facility] ) Outpatient Referrer: [id number] NRI 11/03/2019 [...] Grimes 0 09/12/2019 09:20:00 AM EST [facility] ([facility] ) Outpatient Referrer: [id number] NRI 09/11/2019 10:16:00 AM EST [facility] Outpatient Referrer: [id number] NR 08/29/2019 03:40:00 PM EST [facility] Inpatient Attender: Ok Krishnan aneudy: Thaddeus Roberto MDAdmitter: Ok Hester MD [id number] 08/26/2019 04:01:00 PM EST - 09/03/2019 10:42:00 AM EST [facility] Patient discharged. Medications Medication Brand Name Start [...] TIMES A DAY NEEDED SO LD: 07/23/2020 [facility] 50 mcg (2,000 unit) 04/25/2020 12:00:00 [...] 01/27/2020 12:00:00 AM EDT ORAL active MEDENT ([facility]) 500 mg 01/27/2020 12:00:00 AM EDT tablet 180 TAKE ONE TABLET BY MOUTH EVERY MORNING AND 2 TABLETS AT SUPPER TAKE ONE TABLET BY MOUTH EVERY MORNING A ND 2 TABLETS AT SUPPER SOLD: 01/27/2020 [facility] Ondansetron 4 MG Oral Tablet Ondansetron HCL 01/27/2020 12:00:00 AM EDT active MED[facility] ([facility]) Metformin hydrochloride 500 MG Oral Tablet [...] 12/31/2019 12:00:00 AM EDT ORAL active [facility] ([facility]) 2.5 mg 12/03/2019 12:00:00 AM EDT [...] 09/13/2019 12:00:00 AM EST ORAL completed [facility] ([facility]) 100 mg 09/13/2019 12:00:00 AM EST capsule 6 TAKE 1 CAPSULE BY MOUTH TWICE DAILY FOR 3 DAYS TAKE 1 CAPSULE BY MOUTH TWICE DAILY FOR 3 DAYS SOLD: 0 09/13/2019 [facility] Prednisone 10 MG Oral Tablet Prednisone 09/12/2019 12:00:00 AM EST active [facility] ([facility]) Ergocalciferol 2000 UNT Oral Tablet Vitamin D2 09/12/2019 12:00:00 AM EST active [facility] ([facility]) 50 mg 09/05/2019 12:00:00 AM EST [...] Daily, First dose on Mon09/03/19 at 0900 [facility] Medication administered onsite Acetaminophen 325 MG / Hydrocodone Lisa trate 5 MG Oral Tablet HYDROcodone- acetaminophen (NORCO) 5-325 MG per tablet HYDROcodone-acetaminophen (NORCO) 5- 325 MG per tablet 09/03/2019 12:00:00 AM EST 1 {tbl} Oral active Take 1 tablet by mouth every 6 (six) hours as needed for pain Max Daily Amount: 4 tablets [facility] 5-325 mg 09/03/2019 12:00:00 AM EST tablet 5 TAKE ONE TABLET BY MOUTH EVERY 6 HOURS NEEDED FOR PAIN, MAXIMUM DAILY DOSE = 4 TAKE ONE TABLET BY MOUTH EVERY 6 HOURS NEEDED FOR PAIN, MAXIMUM DAILY DOSE = 4 SOLD: 09/03/2019 [email or web address] potassium chloride SA (K-DUR,KLOR-CON) CR tablet 40 mEq [id number] 09/02/2019 05:00:00 PM EST 40 meq Oral completed 40 mEq, Oral, Once, Mon09/02/19 at 1700, For 1 dose [facility] Medication administered onsite Hydrocortisone 50 MG/ML Injectable Solut ion hydrocortisone sodium succinate (Solu-CORTEF) injection 75 mg hydrocortisone sodium succinate (Solu-CO RTEF) injection 75 mg 09/02/2019 09:00:00 AM EST 75 mg Intravenous aborted 75 mg, Intravenous, Daily, First dose on Mon09/02/19 at 0900, Post-op [facility] Medication administered onsite Acetaminophen 325 MG / Oxycodone Hydroch loride 5 MG Oral Tablet oxyCODONE- acetaminophen (PERCOCET) 5-325 MG 1-2 tablet oxyCODONE-acetaminophen (PERCOCET) 5-325 MG 1-2 tablet 09/02/2019 07:23:48 AM EST Oral active 1-2 tablet, Oral, Every 4 hours PRN, moderate pain (4-6), severe pain (7-10), Starting Mon09/02/19 at 0723, For 7 days [facility] Medication administered onsite Insulin Glargine 100 UNT/ML Injectable S olution [Lantus] insulin glargine (LANTUS) injection 10 Units insulin glargine (LANTUS) injection 10 Units 09/01/2019 09:00:00 PM EST 10 U Subcutaneous active 10 Units, Subcutaneous, Nightly (Lantus), First dose on Mon09/01/19 at 2100
Basal Insulin (Lantus) Adjustments based on AM Blood GlucoseBlood GlucoseAdjustmentLess than 70 mg/dl Nursing to initiate hypoglycemia [id number] to 100 mg/dl Pharmacy to decrease total daily d ose by 20%101 to 200 mg/dl No Change
[facility] Medication administered onsite Saccharomyces boulardii 250 MG Oral Caps ule saccharomyces boulardii (FLORASTOR) capsule 250 mg saccharomyces boulardii (FLORASTOR) capsule 250 mg 01:00:00 PM EST 250 mg Oral active 250 mg, Oral, 2 times daily, First dose on 09/01/19 at 1300
Swallow whole.DO NOT OPEN CAPSULE
[facility] Medication administered onsite potassium chloride SA (K-DUR,KLOR-CON) CR tablet 40 mEq [id number] 9-359-09/01/2019 12:00:00 PM EST 40 meq Oral completed 40 mEq, Oral, Once, 09/01/19 at 1200, For 1 dose [facility] Medication administered onsite pantoprazole 4 MG/ML Injectable [...] 0.9% NaCl and push over 2 minutes.
[facility] Stress Ulcer Prophylaxis Gastroesophageal Reflux Disease Medication administered onsite sodium chloride 0.9% (NS) bolus 1,000 mL [id number] 09/01/2019 10:00:00 AM EST 1000 mL Intravenous completed 1, 000 mL, Intravenous, Administer over 2 Hours, Once, 09/01/19 at 1000, For 1 dose [facility] Medication administered onsite Hydrocortisone 50 MG/ML Injectable Solut ion hydrocortisone sodium succinate (Solu-CORTEF) injection 75 mg hydrocortisone sodium succinate (Solu-CO RTEF) injection 75 mg 09/01/2019 09:00:00 AM EST 75 mg Intravenous aborted 75 mg, Intravenous, Daily, First dose on 09/01/19 at 0900, Post-op [facility] Medication administered onsite potassium chloride SA (K-DUR,KLOR-CON) CR tablet 40 mEq [id number]/31/2019 11:00:00 AM EST 40 meq Oral completed 40 mEq, Oral, Once, 08/31/19 at 1100, For 1 dose [facility] Medication administered onsite Albuterol 0.83 MG/ML Inhalant Solution a lbuterol (PROVENTIL) nebulizer solution 2.5 mg albuterol (PROVENTIL) nebulizer solution 2.5 mg 2019 09:23:40 PM EST 2.5 mg active 2.5 mg, Nebulization, Every 2 hour PRN, wheezing, shortness of breath, Starting Keri 08/29/19 at 2123 [facility] Medication administered onsite morphine HYDRAULIC BULL RIVETER OPERATOR 1 mg/mL 08/29/2019 07:00:00 PM EST Intraven ous aborted Intravenous, Continuous, Starting Mon08/29/19 at 1900, For 138 hours, Post-op [facility] Medication administered onsite Hydrocortisone 50 MG/ML Injectable Solut ion hydrocortisone sodium succinate (Solu-CORTEF) injection 100 mg hydrocortisone sodium succinate (Solu-CO RTEF) injection 100 mg 08/29/2019 09:00:00 AM EST 100 mg Intravenous aborted 100 mg, Intravenous, Daily, First dose on Mon08/29/19 at 0900, Post-op [facility] Medication administered onsite Hydrochlorothiazide 12.5 MG Oral Tablet hydrochlorothiazide (HYDRODIURIL) tablet 12.5 mg hydrochlorothiazide (HYDRODIURIL) tablet 12.5 mg 08/29 09:00:00 AM EST 12.5 mg Oral active 12.5 mg, Oral, Daily, First dose on Mon08/29/19 at 0900, Post-op
Hold for SBP <120
[facility] Medication administered onsite Famotidine (PEPCID) injection 20 mg [id number] 08/28/2019 09:00:0 0 PM EST 20 mg Intravenous aborted Stress Ulcer Pr ophylaxisGastroesophageal Reflux Disease 20 mg, Intravenous, 2 times daily, First dose on Mon08/28/19 at 2100, Post-op
For IV Push - Dilute with 10 mL of 0.9% NaCl and push over 2 minutes.
[facility] Stress Ulcer Prophylaxis Gastroesophageal Reflux Disease Medication administered onsite morphine HYDRAULIC BULL RIVETER OPERATOR 1 mg/mL 08/28/2019 05:00:00 PM EST Intraven ous aborted Intravenous, Continuous, Starting Mon08/28/19 at 1700, For 165 hours, Post-op [facility] Medication administered onsite morphine 1 mg/ml HYDRAULIC BULL RIVETER OPERATOR bolus 4 mg [id number] 08/28/2019 03:00:[address] 4 mg Intravenous completed 4 mg, Intrave nous, Once, Mon08/28/19 at 1500, For 1 dose [facility] Medication administered onsite Metronidazole 5 MG/ML Injectable Solution metroNIDAZOL E (FLAGYL) IVPB 500 mg metroNIDAZOLE (FLAGYL) IVPB 500 mg 08/28/2019 03:00:00 PM EST 50 0 mg Intravenous completed Perioperative Pharmacoprophylaxis 500 mg, Intravenous, Administer over 60 Minutes, Every 8 hours (relative), First dose on Mon08/28/19 at 1500, For 24 hours, Post-op [facility] Perioperative Pharmacoprophylaxis Medication administered onsite Acetaminophen 325 MG Oral Tablet acetaminophen (TYLENO L) 325 MG tablet 650 mg acetaminophen (TYLENOL) 325 MG tablet 650 mg 08/28/2019 02:00:00 PM EST 650 mg Oral active 650 mg, Or al, Every 6 hours (relative), First dose on Mon08/28/19 at 1400, Post-op
"Maximum dose of acetaminophen is 4,000 mg from all sources in 24 hours."
[facility] Medication administered onsite cefazolin (ANCEF) injection 2 g 08/28/2019 02:00:00 PM EST 2 g Intravenous completed Perioperative Pharmacoprophylaxis 2 g, Intravenous, Administer over 6 Minutes, Every 8 hours (relative), First dose on Mon08/28/19 at 1400, For 24 hours, Post-op
RN may administer IV push or infuse this medication through syringe adapter set ref [id number]. Flush line after use
[facility] Perioperative Pharmacoprophylaxis Medication administered onsite dextrose 5 % and sodium chloride 0.45 % with KCl 20 mEq/L in fusion [id number] 08/28/2019 02:00:00 PM EST Intravenous active at 75 mL/hr, Intravenous, Continuous, Starting Mon08/28/19 at 1400, Post-op
This is a "Triggered Filled Infusion" and is automatically sent based on the current rate documented in the flow sheets
[facility] Medication administered onsite morphine HYDRAULIC BULL RIVETER OPERATOR 1 mg/mL 08/28/2019 02:00:00 PM EST Intraven ous aborted Intravenous, Continuous, Starting Mon08/28/19 at 1400, For 7 days, Post-op [facility] Medication administered onsite 1 ML Ketorolac Tromethamine 15 MG/ML Car tridge ketorolac (TORADOL) injection 15 mg ketorolac (TORADOL) injection 15 mg 08/28/2019 02:00:00 PM EST 15 mg Intravenous completed 15 mg, Intrav enous, Once, Mon08/28/19 at 1400, For 1 dose [facility] Medication administered onsite alvimopan 12 MG Oral [...] (>7 days) treatment prior to surgery: No [facility] Medication administered onsite Regular Insulin, Human 100 UNT/ML Inject able Solution insulin regular (HumuLIN,NovoLIN) injection 7 Units insulin regular (HumuLIN,NovoLIN) inject ion 7 Units 08/28/2019 01:00:00 PM EST 7 U Intravenous compl eted 7 Units, Intravenous, Once, Mon08/28/19 at 1300, For 1 dose, PACU (only) [facility] Medication administered onsite HYDROmorphone (DILAUDID) injection 0.5 mg [id number] 08/28/2019 11:52:54 AM EST 0.5 mg Intravenous aborted 0.5 mg, Intravenous, Every 5 min PRN, severe pain (7-10), Starting Mon08/28/19 at 1152, For 5 doses, PACU (only) [facility] Medication administered onsite fentaNYL Citrate (PF) (SUBLIMAZE) injection 25 mcg [id number] 08/28/2019 11:52:54 AM EST 25 ug Intravenous aborted 25 mcg, Intravenous, Every 5 min PRN, moderate pain (4 to 6), Starting Mon08/28/19 at 1152, For 5 doses, PACU (only) [facility] Medication administered onsite alvimopan 12 MG Oral Capsule alvimopan (ENTEREG) capsu le 12 mg alvimopan (ENTEREG) capsule 12 mg 08/28/2019 09:00:00 AM EST 12 mg Oral completed 12 mg, Oral, scallop dredger, Mon08/28/19 at 090 0, For 1 dose, [...] (>7 days) treatment prior to surgery: No [facility] Medication administered onsite Hydrocortisone 20 MG Oral Tablet hydrocortisone (RAHEEL F) tablet 100 mg hydrocortisone (CORTEF) tablet 100 mg 08/28/2019 06:00:00 AM EST 10 0 mg Oral completed 100 mg, Oral, Once, Mon at 0600, For 1 dose [facility] Medication administered onsite Insulin Glargine 100 UNT/ML Injectable S olution [Lantus] insulin glargine (LANTUS) injection 5 Units insulin glargine (LANTUS) injection 5 Units 08/27/2019 10:00:00 PM EST 5 U Subcutaneous aborted 5 Units, Subcutaneous, Nightly (Lantus), First dose on Mon08/27/19 at 2200
Basal Insulin (Lantus) Adjustments based on AM Blood GlucoseBlood GlucoseAdjustmentLess than 70 mg/dl Nursing to initiate hypoglycemia [id number] to 100 mg/dl Pharmacy to decrease total daily d ose by 20%101 to 200 mg/dl No Change
[facility] Medication administered onsite Insulin Lispro 100 UNT/ML Injectable Tracee ution insulin lispro (HumaLOG) injection 1-12 Units insulin lispro (HumaLOG) injection 1-12 Units 08/27/19 05:00:00 PM EST Subcutaneous active 1-1 2 Units, Subcutaneous, MEALSS, First dose on Mon08/27/19 at 1700
AVERAGE 6 Units Nutritional and Correction Insulin ScaleBlood Glucose (mg/dl) <70 start hypoglycemia protocolGlucoseEats >=50% Eats <50%Eats Nothing (mg/dl) of meal of mealor [id number] units 2 units 0 - 1706 units 3 units 0 [id number] units 4 units 1 [id number] units 5 units 2 -8789 units 6 units 3 [id number] units 7 units 4 [id number] units 8 units 5 units>420 call MD12 units 9 units 6 unitsTest glucose within 30 minutes of insulin administration.Administer insulin within 15 minutes (before or after) of the patient starting to eat.For patients that are NPO, use theNPO (correction) scale to cover POC glucose at 08:00, 12:00, 17:00.
[facility] Medication administered onsite Hydrochlorothiazide 12.5 MG Oral Tablet hydrochlorothiazide (HYDRODIURIL) tablet 12.5 mg hydrochlorothiazide (HYDRODIURIL) tablet 12.5 mg 08/27 04:00:00 PM EST 12.5 mg Oral aborted 12.5 mg, Oral, Daily, First dose on Mon08/27/19 at 1600
Hold for SBP <120
[facility] Medication administered onsite Prednisone 10 MG Oral Tablet predniSONE (DELTASONE) ta blet 10 mg predniSONE (DELTASONE) tablet 10 mg 08/27/2019 04:00:00 PM EST 10 mg Oral aborted 10 mg, Oral, Daily, First dose on Mon08/27/19 at 1600 [facility] Medication administered onsite pantoprazole 40 MG Delayed Release Oral Tablet pantoprazole (PROTONIX) EC tablet 40 mg pantoprazole (PROTONIX) EC tablet 40 mg 08/27/2019 04:00:[address] 40 mg Oral aborted Gastroesophageal Reflux Diseas e 40 mg, Oral, Daily, Indications: Gastroesophageal Reflux Disease, First dose on Mon08/27/19 at 1600 [facility] Gastroesophageal Reflux Disease Medication administered onsite Dextromethorphan Hydrobromide 2 MG/ML / Guaifenesin 20 MG/ML Oral Solution guaifenesin-dextromethorphan (ROBITUSSIN DM) 100-10 MG/5ML syrup 5 mL guaifenesin-dextromethorphan (ROBITUSSIN DM) 100-10 MG/5ML syrup 5 mL 08/27/2019 03:47:40 PM EST 5 mL Oral active 5 mL, Oral, Every 4 hours PRN, other, cough, congestion, Starting Mon08/27/19 at 1547 [facility] Medication administered onsite hydrocortisone (CORTEF) tablet 75 mg 08/27/2019 03:00:00 PM EST 75 mg Oral completed 75 mg, Oral, Once, Mon at 1500, For 1 dose [facility] Medication administered onsite sodium chloride 0.9% (NS) infusion [id number] 08/27/2019 02:00:00 P M EST Intravenous aborted at 125 mL/hr, Intravenous, Continuous, Starting Mon08/27/19 at 1400 [facility] Medication administered onsite fluticasone (FLONASE) 50 MCG/ACT nasal spray 1 spray [id number] 08/27/2019 01:43:36 PM EST 1 {spray} Nasal active 1 spray, Nasal, Daily PRN, congestion, allergies, Starting Mon08/27/19 at 1343 [facility] Medication administered onsite Calcium Carbonate 500 MG Chewable Tablet calcium carbonate (TUMS) chewable tablet 1,500 mg calcium carbonate (TUMS) chewable tablet 1,500 mg 08/08 01:42:30 PM EST 1500 mg Oral active 1,500 mg, Oral, Daily PRN, heartburn, Starting Mon08/27/19 at 1342 [facility] Medication administered onsite Metronidazole 5 MG/ML Injectable Solution metroNIDAZOL E (FLAGYL) IVPB 500 mg metroNIDAZOLE (FLAGYL) IVPB 500 mg 08/27/2019 11:00:00 AM EST 50 0 mg Intravenous completed Perioperative Pharmacoprophylaxis 500 mg, Intravenous, Administer over 60 Minutes, scallop dredger to O.R., Mon08/27/19 at 1100, For 1 dose [facility] Perioperative Pharmacoprophylaxis Medication administered onsite Insulin Lispro 100 UNT/ML Injectable Tracee ution insulin lispro (HumaLOG) injection 1-6 Units insulin lispro (HumaLOG) injection 1-6 Units 0 08:00:00 AM EST Subcutaneous aborted 1-6 Units, Subcutaneous, MEALSS, First dose on Mon08/27/19 at 0800
Frail 3 units Nutritional and Correction Insulin ScaleBlood Glucose (mg/dl) <70 start hypoglycemiaprotocolGlucose Eats >=50% Eats <50%Eats Nothing (mg/dl) of meal of mealor BIZ20-7583 units 1 units 0 lizyo878- 1703 units 2 units 0 rabhl254-6812 units 2 units 1 hlmqe070- 2704 units 3 units 1 owshm349-4523 units 3 units 2 sgwyk263- 3705 units 4 units 2 -6749 units 4 units 3 units>420 call MD6 units 5 units 3 unitsTest glucose within 30 minutes of insulin administration.Administer insulin within 15 minutes (before or after) of the patient starting to eat.For patients that are NPO, use theNPO (correction) scale to cover POC glucose at 08:00, 12:00, 17:00.
[facility] Medication administered onsite heparin (porcine) injection 5,000 Units [id number] 08/26/19 10:00:00 PM EST 5000 U Subcutaneous active 5,000 Units , Subcutaneous, Every 8 hours (scheduled), First dose on Mon08/26/19 at 2200
If platelet count is less than 100,000 or hematocrit is less than 25, or if there is a 5 point decrease in hematocrit, do not give the dose and call physician/designee.
[facility] Medication administered onsite normal saline flush 0.9 % injection 3 mL [id number] 08/26/2019 10:00:00 PM EST 3 mL Intravenous active 3 mL , Intravenous, Every 8 hours (scheduled), First dose on Mon08/26/19 at 2200
flush per protocol, D/C Main IV fluid if appropriate
[facility] Medication administered onsite Methylprednisolone 40 MG/ML Injectable S olution methylPREDNISolone sodium succinate (Solu-MEDROL) injection 40 mg methylPREDNISolone sodium succinate (Solu-MEDROL) injection 40 mg 08/26/2019 09:00:00 PM EST 40 mg I ntravenous aborted 40 mg, Intraveno us, 2 times daily, First dose on Mon08/26/19 at 2100 [facility] Medication administered onsite pantoprazole 4 MG/ML Injectable Solution pantoprazole (PROTONIX) injection 40 mg pantoprazole (PROTONIX) injection 40 mg 08/26/2019 08:00:00 PM EST 40 mg Intravenous aborted Gastroesophageal Reflux Disease 40 mg, Intravenous, Daily, Indications: Gastroesophageal Reflux Disease, First dose on Mon08/26/19 at 2000
For IV Push - Dilute with 10 mL of 0.9% NaCl and push over 2 minutes.
[facility] Gastroesophageal Reflux Disease Medication administered onsite dextrose 5 % and sodium chloride 0.9 % infusion [id number] 08/26/2019 07:00:00 PM EST Intravenous aborted at 1 25 mL/hr, Intravenous, Continuous, Starting Mon08/26/19 at 1900 [facility] Medication administered onsite ondansetron (ZOFRAN) injection 4 mg [id number] 08/26/2019 06:22:2 9 PM EST 4 mg Intravenous active 4 mg, In travenous, Every 4 hours PRN, nausea, vomiting, Starting Mon08/26/19 at 1822 [facility] Medication administered onsite Morphine Sulfate (PF) injection 4 mg [id number] 08/26/2019 06:22: 01 PM EST 4 mg Intravenous aborted 4 mg, In travenous, Every 4 hours PRN, severe pain (7-10), Starting Mon08/26/19 at 1822, For 7 days
If PO pain meds are not sufficient for pain control
[facility] Medication administered onsite cefdinir 300 MG Oral Capsule cefdinir (OMNICEF) 300 MG capsule cefdinir (OMNICEF) 300 MG capsule 08/18/2019 12:00:00 AM EST 300 mg Oral aborted Take 300 mg by mouth 2 (two) times a day X 4 days [facility] Esomeprazole 40 MG Delayed Release Oral Capsule [Nexium] Nex ium 07/16/2019 12:00:00 AM EST ORAL active M [facility] ([facility]) Hydrochlorothiazide 25 MG Oral Tablet Hydrochlorothiazide 12:00:00 AM EST ORAL completed [facility] ([facility]) 40 mg 07/16/2019 12:00:00 AM EST capsule,delayed release (DR/EC) 30 TAKE ONE CAPSULE BY MOUTH EVERY DAY WHILE ON PREDNISONE TAKE ONE CAPSULE BY MOUTH EVERY DAY WHILE ON PREDNISONE SOLD: 11/06/2019 [facility] Vitamin B 12 1 MG Oral Tablet Vitamin B-12 07/16/2019 12:00:00 AM EST ORAL active [facility] ([facility]) 25 mg 07/16/2019 12:00:00 AM EST [...] FOUR TIMES A DAY NEEDED SOLD: 07/13/2019 [email or web address] Probiotic Product (PROBIOTIC DAILY PO) Oral aborted Take by mouth [facility] Ergocalciferol 61914 UNT Oral Capsule vi tamin D, Ergocalciferol, 02477 UNITS CAPS vitamin D, Ergocalciferol, 68704 UNITS CAPS 1 {capsule} Oral aborted Take 1 capsule by mouth once a w [place] [facility] certolizumab pegol 200 MG Injection Certolizumab Pegol (CIMZIA) 2 X 200 MG KIT Certolizumab Pegol (CIMZIA) 2 X 200 MG KIT Subcutaneous aborted Inject under the skin every 30 (thirty) days [facility] Multiple Vitamin (MULTIVITAMIN) tablet 34640-805-83 1 {t bl} Oral aborted Take 1 tablet by mouth [facility] Insurance Providers Payer name Policy type / Coverage type Policy ID Covered alliance party ID Covered alliance party's relationship to ghotra Policy Ghotra Plan Information [place] 302/307 [id number] SP [id number] [facility] [id number] [facility] [id number] 0 [id number] [facility] [id number] 0 [id number] [facility] PPO POS [id number] [facility] [id number] 0 [id number] EXCE[employer] BCBS B [id number] S VYS EXCELLUS BCBS [id number] Adrienne VYS [id number] EXCE[employer]US BCBS 03 [place] PPO 302/307 [id number] SP [id number] [employer] O PPO POS [id number] [employer] HEA [id number] S [id number] ANSI-Commercial [id number] ANSI-Commercial [id number] [place] PPO 302/307 [id number] SP [id number] BS iFACETS [facility] Part B [id number] Self V [id number] [facility] [place] Commercial [id number] Self [id number] ANSI-Commercial [id number] ANSI-Commercial [id number] BS [employer] Commercial [id number] Self [id number] [facility] [place] Commercial [id number] Self [id number] EXCELLUS BCBS PI PI MVP [id number] Adrienne [id number] MVP PREMIER EXCHANGE [id number] Adrienne [id number] [place] PPO 302/307 [id number] SP [id number] BS Erica Trad/MX Commercial 802 Self 802 [facility] Commercial [place] HDHP Self L [place] HDHP BS Erica Trad/MX Commercial 802 Self 802 Excell[employer] BCBS Health Maintenance Organization (HMO) Self MVP PREMIER EXCHANGE [id number] Adrienne [id number] [facility] [id number] SP [id number] [facility] HEALTH PLAN O [id number] S [id number] [facility] HEALTH PLAN O [id number] S [id number] [facility] PREMIER EXCHANGE [id number] Adrienne [id number] [facility] O [id number] S [id number] BILL BECK PHY [id number] SP [id number] [facility] HMO/PPO/POS [id number] [facility]/OTHER [id number] BCBS OF [place] 306/806 [id number] SP [id number] BCBS [place] PPO 302/307 [id number] SP [id number] BCBS [place] O [id number] S [id number] BCBS HMO [place] O [id number] S [id number] Problems, Conditions, and Diagnoses Code Display Name Description Problem Type Effective Dates Data Source(s) G47.30 Sleep apnea Sleep apnea [id number] 09/01/2019 12:00:00 AM [facility] E66.9 Obesity Obesity [id number] 09/01/2019 12:00:00 AM [facility] E11.9 Diabetes Diabetes [id number] 08/26/2019 12:00:00 AM [facility] K56.609 SBO (small bowel obstruction) SBO (small bowel obstruc tion) [id number] 08/26/2019 12:00:00 AM [facility] K50.90 Crohn's disease Crohn's disease [id number] 08/26/2019 12:0 0:00 AM [facility] K50.919 Crohn's disease, unspecified, with unspe cified complications Crohn's disease, unspecified, with unspe Diagnosis 08/26/2019 04:01:00 PM [facility] K50.90 Crohn's disease, unspecified, without co mplications Crohn's disease, unspecified, without co Diagnosis 08/26/2019 04:01:00 PM [facility] K56.609 Unspecified intestinal obstr uction, unspecified as to partial versus complete obstruction Unspecified intestinal obstruction, unsp Diagnosis 08/26/2019 04:01:00 PM [facility] Surgeries/Procedures Procedure Description Date Indications Data Source(s) Bone Mineral Density Test 10/25/2019 12:00:00 AM EDT [facility] ([facility]) GLUC BLD GLUC MNTR DEV CLEARED FDA SPEC HOME USE POCT GLUCOSE Routine 09/03/2019 8:22 AM EST 09/03/2019 01:22:00 PM [facility] GLUC BLD GLUC MNTR DEV CLEARED FDA SPEC HOME USE POCT GLUCOSE Routine 09/02/2019 5:26 PM EST 09/02/2019 10:26:00 PM [facility] GLUC BLD GLUC MNTR DEV CLEARED FDA SPEC HOME USE POCT GLUCOSE Routine 09/02/2019 1:49 PM EST 09/02/2019 06:49:00 PM [facility] GLUC BLD GLUC MNTR DEV CLEARED FDA SPEC HOME USE POCT GLUCOSE Routine 09/02/2019 8:28 AM EST 09/02/2019 01:28:00 PM [facility] BLOOD COUNT COMPLETE AUTOMATED CBC Routine 09/02/2019 7:30 A M EST 09/02/2019 12:30:00 PM [facility] MAGNESIUM MAGNESIUM Routine 09/02/2019 7:30 AM EST 09/02/2019 12:30:00 PM [facility] COMPREHENSIVE METABOLIC PANEL COMPREHENSIVE METABOLIC PANEL Rou dominique 09/02/2019 7:30 AM EST 09/02/2019 12:30:00 PM [facility] GLUC BLD GLUC MNTR DEV CLEARED FDA SPEC HOME USE POCT GLUCOSE Routine 09/01/2019 5:39 PM EST 09/01/2019 10:39:00 PM [facility] GLUC BLD GLUC MNTR DEV CLEARED FDA SPEC HOME USE POCT GLUCOSE Routine 09/01/2019 10:24 AM EST 09/01/2019 03:24:00 PM EST [facility] BLOOD COUNT COMPLETE AUTOMATED CBC Routine 09/01/2019 8:25 A M EST 09/01/2019 01:25:00 PM EST [facility] MAGNESIUM MAGNESIUM Routine 09/01/2019 8:25 AM EST 09/01/2019 01:25:00 PM EST [facility] BASIC METABOLIC PANEL CALCIUM TOTAL BASIC METABOLIC PANEL Routi ne 09/01/2019 8:25 AM EST 09/01/2019 01:25:00 PM [facility] GLUC BLD GLUC MNTR DEV CLEARED FDA SPEC HOME USE POCT GLUCOSE Routine 08/31/2019 10:14 PM EST 09/01/2019 03:14:00 AM [facility] GLUC BLD GLUC MNTR DEV CLEARED FDA SPEC HOME USE POCT GLUCOSE Routine 08/31/2019 4:57 PM EST 08/31/2019 09:57:00 PM [facility] GLUC BLD GLUC MNTR DEV CLEARED FDA SPEC HOME USE POCT GLUCOSE Routine 08/31/2019 11:45 AM EST 08/31/2019 04:45:00 PM [facility] GLUC BLD GLUC MNTR DEV CLEARED FDA SPEC HOME USE POCT GLUCOSE Routine 08/31/2019 9:03 AM EST 08/31/2019 02:03:00 PM [facility] BLOOD COUNT COMPLETE AUTOMATED CBC Timed 08/31/2019 6:24 A M EST 08/31/2019 11:24:00 AM [facility] MAGNESIUM MAGNESIUM Add-On 08/31/2019 6:24 AM EST 08/31/2019 11:24:00 AM [facility] BASIC METABOLIC PANEL CALCIUM TOTAL BASIC METABOLIC PANEL Timed 08/31/2019 6:24 AM EST 08/31/2019 11:24:00 AM [facility] GLUC BLD GLUC MNTR DEV CLEARED FDA SPEC HOME USE POCT GLUCOSE Routine 08/30/2019 5:25 PM EST 08/30/2019 10:25:00 PM EST [facility] GLUC BLD GLUC MNTR DEV CLEARED FDA SPEC HOME USE POCT GLUCOSE Routine 08/30/2019 12:35 PM EST 08/30/2019 05:35:00 PM EST [facility] GLUC BLD GLUC MNTR DEV CLEARED FDA SPEC HOME USE POCT GLUCOSE Routine 08/29/2019 6:56 PM EST 08/29/2019 11:56:00 PM [facility] GLUC BLD GLUC MNTR DEV CLEARED FDA SPEC HOME USE POCT GLUCOSE Routine 08/29/2019 3:45 PM EST 08/29/2019 08:45:00 PM EST [facility] GLUC BLD GLUC MNTR DEV CLEARED FDA SPEC HOME USE POCT GLUCOSE Routine 08/29/2019 9:03 AM EST 08/29/2019 02:03:00 PM [facility] BLOOD COUNT COMPLETE AUTOMATED CBC Routine 08/29/2019 7:27 A M EST 08/29/2019 12:27:00 PM [facility] BASIC METABOLIC PANEL CALCIUM TOTAL BASIC METABOLIC PANEL Timed 08/29/2019 7:27 AM EST 08/29/2019 12:27:00 PM [facility] GLUC BLD GLUC MNTR DEV CLEARED FDA SPEC HOME USE POCT GLUCOSE Routine 08/28/2019 7:12 PM EST 08/29/2019 12:12:00 AM [facility] GLUC BLD GLUC MNTR DEV CLEARED FDA SPEC HOME USE POCT GLUCOSE Routine 08/28/2019 1:40 PM EST 08/28/2019 06:40:00 PM [facility] GLUC BLD GLUC MNTR DEV CLEARED FDA SPEC HOME USE POCT GLUCOSE Routine 08/28/2019 12:04 PM EST 08/28/2019 05:04:00 PM [facility] RESECTION, SMALL INTESTINE, LAPAROSCOPIC RESECTION, S MALL INTESTINE, LAPAROSCOPIC 08/28/2019 9:37 AM EST SMALL BOWEL OBSTRUCTION; crohn's disease 08/28/2019 02 :37:00 PM EST - 08/28/2019 05:25:00 PM [facility] GLUC BLD GLUC MNTR DEV CLEARED FDA SPEC HOME USE POCT GLUCOSE Routine 08/28/2019 8:21 AM EST 08/28/2019 01:21:00 PM [facility] BLOOD COUNT COMPLETE AUTOMATED CBC Routine 08/28/2019 6:02 A M EST 08/28/2019 11:02:00 AM EST [facility] GONADOTROPIN CHORIONIC QUALITATIVE HCG, SERUM, QUALITATIVE Rout ine 08/28/2019 6:02 AM EST 08/28/2019 11:02:00 AM [facility] BASIC METABOLIC PANEL CALCIUM TOTAL BASIC METABOLIC PANEL Routi ne 08/28/2019 6:02 AM EST 08/28/2019 11:02:00 AM EST [facility] GLUC BLD GLUC MNTR DEV CLEARED FDA SPEC HOME USE POCT GLUCOSE Routine 08/27/2019 8:31 PM EST 08/28/2019 01:31:00 AM [facility] COLECTOMY PRTL W/RMVL TERMINAL ILEUM&ILEOCOLOST 2019 12:00:00 AM EST [facility] ([facility]) GLUC BLD GLUC MNTR DEV CLEARED FDA SPEC HOME USE POCT GLUCOSE Routine 08/27/2019 5:43 PM EST 08/27/2019 10:43:00 PM [facility] ECG ROUTINE ECG W/LEAST 12 LDS TRCG ONLY W/O I&R ECG 12-LEAD Routine 08/27/2019 2:40 PM EST 08/27/2019 07:40:12 PM [facility] GLUC BLD GLUC MNTR DEV CLEARED FDA SPEC HOME USE POCT GLUCOSE Routine 08/27/2019 1:04 PM EST 08/27/2019 06:04:00 PM [facility] HEMOGLOBIN GLYCOSYLATED A1C HEMOGLOBIN A1C Add-On 08/27/2019 12:32 PM EST 08/27/2019 05:32:00 PM EST [facility] BLOOD TYPING ABO TYPE AND SCREEN Routine 08/27/2019 12:30 PM EST 08/27/2019 05:30:00 PM [facility] GLUC BLD GLUC MNTR DEV CLEARED FDA SPEC HOME USE POCT GLUCOSE Routine 08/27/2019 7:59 AM EST 08/27/2019 12:59:00 PM [facility] BLOOD COUNT COMPLETE AUTOMATED CBC Routine 08/27/2019 6:32 A M EST 08/27/2019 11:32:00 AM EST [facility] ALBUMIN SERUM PLASMA/WHOLE BLOOD ALBUMIN Add-On 08/27/2019 6:32 AM EST 08/27/2019 11:32:00 AM EST [facility] BASIC METABOLIC PANEL CALCIUM TOTAL BASIC METABOLIC PANEL Routi ne 08/27/2019 6:32 AM EST 08/27/2019 11:32:00 AM EST S [facility] Results ID Date Data Source [id number] 08/16/2020 10:00:00 AM EST [facility] Name Value Range Interpretation Code Description Data Bren rce(s) Supporting Document(s) SARS coronavirus 2 RNA [Presence] in Res piratory specimen by CECE with probe detection POSITIVE [facility] This lab was ordered by [facility] a nd reported by [facility]. ID Date Data Source [id number] 08/02/2020 11:50:00 AM EST [facility] Name Value Range Interpretation Code Description Data Bren rce(s) Supporting Document(s) SARS coronavirus 2 RNA [Presence] in Res piratory specimen by CECE with probe detection [facility] This lab was ordered by [facility] a nd reported by [facility]. ID Date Data Source [id number] 05/29/2020 02:27:00 PM EDT [facility] ([facility]) Name Value Range Interpretation Code Description Data Bren rce(s) Supporting Document(s) C reactive protein [Mass/volume] in Serum or Plasma by High sensitivity method Laboratory test result 0.00-0.30 [facility] ([facility]) ID Date Data Source [id number] 05/29/2020 02:26:00 PM EDT [facility] ([facility]) Name Value Range Interpretation Code Description Data Bren rce(s) Supporting Document(s) Hemoglobin A1c/Hemoglobin.total in Blood 9.5 % [facility] ([facility]) Lab Result Notes: Pre-Diabetes 5.7 - 6.4 % Diabetes = or > 6.5% Glucose mean value [Mass/volume] in Blood Estimated fr om glycated hemoglobin 226 mg/dL 60-110 [facility] ([facility] ) ID Date Data Source [id number] 05/29/2020 02:26:00 PM EDT [facility] ([facility]) Name Value Range Interpretation Code Description Data Bren rce(s) Supporting Document(s) Cholesterol in HDL [Mass/volume] in Serum or Plasma 48 mg/dL 35-60 [facility] ([facility]) Cholesterol [Mass/volume] in Serum or Plasma 161 mg/dL 131-200 [facility] ([facility]) Triglyceride [Mass/volume] in Serum or Plasma 89 mg/dL 30-150 [facility] ([facility]) Cholesterol in LDL [Mass/volume] in Serum or Plasma by calcu lation 95 CALC 50-159 [facility] ([facility]) ID Date Data Source [id number] 05/29/2020 02:26:00 PM EDT [facility] ([facility]) Name Value Range Interpretation Code Description Data Bren rce(s) Supporting Document(s) Urea nitrogen [Mass/volume] in Serum or Plasma 8 mg/dL 7-18 [facility] ([facility]) Glucose [Mass/volume] in Serum or Plasma 215 mg/dL 74-99 [facility] ([facility]) 100-125 mg/dL PRE-DIABETES/FASTING >126 mg/dL DIABETES/FASTING Creatinine 0.7 mg/dL 0.6-1.3 [facility]) Sodium [Moles/volume] in Serum or Plasma 138 meq/L 136-145 [facility] ([facility]) Carbon dioxide, total [Moles/volume] in Serum or Plasma 29 meq/L 21 -32 [facility] ([facility]) Potassium [Moles/volume] in Serum or Plasma 4.3 meq/L 3.5-5.1 [facility] ([facility]) Chloride [Moles/volume] in Serum or Plasma 102 meq/L 98-107 [facility] ([facility]) Calcium [Mass/volume] in Serum or Plasma 9.4 mg/dL 8.5-10.1 [facility] ([facility]) Total Bilirubin 2.1 mg/dL 0.2-1.0 [facility] ([facility]) NOTE: T.BILI,AST,ALT VERIFIED Alkaline phosphatase isoenzyme [Units/volume] in Serum or Pl asma 105 mg/dL 46-116 [facility] ([facility]) Aspartate aminotransferase [Enzymatic activity/volume] in Serum or Plasma 105 U/L 15-37 [facility] Alanine aminotransferase [Enzymatic activity/volume] in Seru m or Plasma 92 U/L 12-78 [facility] Albumin [Mass/volume] in Serum or Plasma 3.2 g/dL 3.4-5.0 [facility] Proteinase 3 Ab [Units/volume] in Serum 7.0 g/dL 6.4-8.2 [facility] A/G Ratio 0.84 CALC 1.00-1.90 [facility] ([facility]) Glomerular filtration rate/1.73 sq M pre dicted among blacks [Volume Rate/Area] in Serum or Plasma by Creatinine-based formula (MDRD) Laboratory test result [facility] ([facility]) <content>CHRONIC KIDNEY DISEASE STAGING PER NKF</content>
<content></content>
<content>STAGE I & II GFR >= 60 NORMAL TO MILDLY DECREASED</content>
<content>STAGE III GFR 30-59 MODERATELY DECREASED</content>
<content>STAGE IV GFR 15-29 SEVERELY DECREASED</content>
<content>STAGE V GFR <15 VERY LITTLE GFR LEFT</content>
<content>ESRD GFR <15 ON DINING SERVICES MANAGER</content>
<content></content> Glomerular filtration rate/1.73 sq M pre dicted among non-blacks [Volume Rate/Area] in Serum or Plasma by Creatinine-based formula (MDRD) Laboratory test result [facility] ([facility] ) ID Date Data Source [id number] 05/29/2020 02:26:00 PM EDT [facility] Name Value Range Interpretation Code Description Data Bren rce(s) Supporting Document(s) Erythrocyte sedimentation rate by Westergren method 39 mm/hr 0-15 [facility] ([facility]) ID Date Data Source [id number] 05/29/2020 02:26:00 PM EDT [facility] Name Value Range Interpretation Code Description Data Bren rce(s) Supporting Document(s) Leukocytes [#/volume] in Blood by Automated count 4.0 x10*3/UL 4.1-10 .9 [facility] ([facility]) NOTE: RESULT VERIFIED. Hemoglobin [Mass/volume] in Blood 13.8 g/dL 12.0-18.0 [facility] ([facility]) Erythrocytes [#/volume] in Blood by Automated count 3.80 x10*6/UL 4.2 0-6.30 [facility] ([facility]) MCH 36.5 pg 26.0-32.0 [facility] Hematocrit [Volume Fraction] of Blood by Automated count 40.4 % 3 7.0-51.0 [facility] ([facility]) MCV 106.3 fL 80.0-97.0 [facility] Erythrocyte distribution width [Ratio] by Automated count 16.0 % 11.6-13.7 [facility] ([facility]) MCHC 34.3 g/dL 31.0-38.0 [facility] MPV 8.3 FL 7.8-11.0 [facility] Platelets [#/volume] in Blood by Automated count 250 x10*3/UL 140-440 [facility] ([facility]) Lymph % 35.9 % 10.0-58.5 [facility] Mid % 7.9 % 1.7-9.3 [facility] Lymph # 1.4 x10*3/UL 0.6-4.1 [facility] ([facility]) Mid # 0.4 x10*3/UL 0.1-0.6 [facility] ([facility]) Neut % 56.2 % 37.0-92.0 [facility] Neut # 2.2 x10*3/UL 2.0-7.8 [facility] ([facility]) ID Date Data Source [id number] 02/19/2020 10:45:00 AM EDT [facility] Name Value Range Interpretation Code Description Data Bern rce(s) Supporting Document(s) EGD [facility] HDOKAy0sZtOCVpHyOXSwGwnCXVbrFUipGUXbO7C2SYuhWb6HLKfqksQoFIMyGq5+XSEoWI6zyl5aKHBu gMy 6fSOYqTsdoH4RxHVXvl14GPWWcCMgDKuLnWdNtUeT9WJMlFuW7XDL9ZmLvRaunEF6kEOT1XMDeMAklNQ JvKAolDGFdTKrfUP9qFGklJOljZi7GFY9dx9FrCTFcCGHeLtuSZUcvAFozQRZaXITyZMCdU878wpGsIc 6RiDQeRGg8XIWlIsN7NEUxRnM3IXLjYe9nKrIzm1Sx Q5AvIEg1V5qBIgzpR5MuITnyRW1bVIQ4QVKpXh5YbMnfIQphTRZFL4zjMnAaWMCnPUMPLq7+Pj4+DWVu WF0iwu45IIVfh8BaLFy5E0D8uZQtQ9CdP9LsAHNmgHYNe0lhVfOjFBP3WMJlHfzkNB0IVXDyvJNbJRSn LJluGX6apwYekPU9RT1YwAgvZGHuWNRBAq8+Pi9QYX YfqzXdAsXbNJMmC74dwUMhnRBwKtipRAQTNM9+HDAmSI6foq25PJFsw9FaSHu7V1miyfc2pEGrZBN2St McInBxAXNzXU4mLX2LoSN5wRScYQ7QkZAtRS4IpFYtYF3EU7UgJLM5X0XdjMRdvqUgN1TwGBVjCZPyq5 GtTR3HX0LEUVRzOHCnI6UmrQ1fV3ZnL5TrS7Qkxjjj HTGSDz9GgZO6fINiVDPwH3hljRwivSDaFWjkU8SluYZDWFALx41nj52ffkSqYC5+h1HeORVnHKe38it9 ZVAcX/gsOEXBZlx6ITowQHJzPhAQel1sL4uqSuM9WYc9SeuonWS2D6hGlURP5//nfdh4nce3iz/eD+/z 1AALyr3+r1dg5sUw4jJk2SNIKWejRYIAoHVPLAHT04 fbdOw2FMdwdWbszKmJ+ZMhZIYUbRQyb3rZ2G1Ry4ZGjxUwZsH95+Ef2dqa7fqi3vTw2+Lm/NdmNJ0sn2 ZHQyfGwCDmfEv+lvP/EP13WHbeaSzbzqWCFiFUWbLSV+PtK1JJUQSuNptJLN8tUBoMVxGqw5Zob5U9OT CPDXiFAAS+QgQiISEi/u31+ejOHFEQum7D7FJNA7fM [file] Yfg2jyIhzVj6u28uBu7ufSn0aZRIoK204S3mMhQxdLho7oIGoublBgnsdNZm7AWedh3uEkt8gA1+ELECTRIC LOCOMOTIVE CRANE OPERATOR+S [file] 4cYfDyvKPFsS/h6pkIVeTdBmvg9P3Myn6YAfqC8C/ovC+nGzWb4JOPYhhBrYvbyl0tNjN8jnCnFIN/Soil Fertility Specialist [file] embossing machine operator+x0YqZBROp4J4j+ESPpG0V+ioM+cMym0OVPVP9S [file] VGRIRtQCSQTctXHMXCmnyVl7ZDDIw/eXbCDVa/JZ9Y mid level provider/8TYZ10zXPS99Cb3JolGuvOSVkL4lnoarQ0XFF8vvr7mcmCKuhC9ueO1wTpm6QOhMZjIB/xYPaBrM [file] Jesus [file] YGh0ZOLL9G0uMkH9Cfk5/SVm3NHah1h6E5b/RF+group home [file] rBjkIu/QqA1zp1SGRNDHq8AXEA6W/IaBKO6HLz2ll+ski lift attendant+hK8Bwno/S2IJignNpot25u91N+ydk3dgyi5 [file] cLbwQkMGpbySFx7nEwoofOU0N0S8urA5Vc53B4QQqbT8tfkFhNHnnejkFkVSBlF12m3ylkrL5Xy/Heather mVKnH/scdIfUSYD+Zfwt8NQ9L7KlccBxuCo/iQRIqF yo7hjRW8xlqBYi8YmoBCI2RxtcAO5A/DE JESUS+8c2RxnDKV6aoQflsY5rr9AVhO/hitxq/bM7IwiOBltPP7v [file] W/uO9TNvZ7BT+DGQXDuSLkhEhO1NerP5F/txnVaAitCigrhgYHdK1gMYp6u3m/2dd7k+Juan J+lg7pxMD0 [file] 9M9BpupSS3Lupod85xhL0rs7Ihi9pMCPHovN7NZM6YS/lJIdS0ql0IuXUqZ5K4s+GI1CAJjdlu42/group home [file] NcUQmoRowf+xRLHMeE3/aNPCwlaYHtAefF3qghv51IUhSKLM1B4qOmrGhw/communication equipment repairer+YKRlFoBAUmYDKOckhE [file] WENRwELl9BGD4ef3LnNNGhFRrdfvIgDzoWCSmguLAkwXfcPQBOVsT0BKEhWf4ICHQEU7U= ID Date Data Source [id number] 02/14/2020 10:45:00 AM EDT [facility] Name Value Range Interpretation Code Description Data Bren rce(s) Supporting Document(s) SARS-COV-2 RNA RESP QL CECE+PROBE [facility] This lab was ordered by [facility] and reported by [employer] ID Date Data Source [id number] 02/20/2020 10:17:00 AM EDT [facility] FASTING: UNKNOWNReceived: 02/15/2020 at 06:27:00 QPT: [facility] [place], [address] [facility], [address] [place], [address], Tommy Conner MD Name Value Range Interpretation Code Description Data Bren rce(s) Supporting Document(s) SARS CoV 2 RNA NOT DETECTED Normal (applies to non-numeric results) [employer] A Not Detected (negative) test result fo [...] findings,re- testing should be considered in [facility] health authorities. Laboratory test results shouldalways be considered in the context of clinicalobservations and epidemiological data in making a finaldiagnosis and patient management decisions.Please review the "Fact Sheets" and FDA authorizedlabeling available for health care providers andpatients using the following websites:https://[email or web address]/home/Covid-19/HCP/NAAT/fact-jnred3ecuwm://www.[email or web address]/home /Covid-19/Patients/NAAT/fact-fqfdw5Yyjl test has been authorized by the FDA under anEmergency Use Authorization (EUA) for use by authorizedlaboratories.Due to the current public health emergency, [facility] is receiving a high volume of samples [...] about COVID-19 can be foun luda the [employer] website:[email or web address]. Your request to have a duplicate copy faxed has been acknowledged. Queued to: [id number] ID Date Data Source [id number] 01/27/2020 03:55:00 PM EDT [facility] ([facility]) Name Value Range Interpretation Code Description Data Bren rce(s) Supporting Document(s) Choriogonadotropin.beta subunit [Moles/volume] in Seru m or Plasma Laboratory test result [facility] ) GESTATIONAL AGE APPROXIMATE HCG RANGE [...] monitoring the treatment of cancer patients. Siemens Cantwell methodology. ID Date Data Source [id number] 01/24/2020 12:00:00 AM EDT [facility] Grant Tucker MD [facility] : [facility] Date of Exam: 01/24/2020ROCIO Calderon [id number]#: Fax: [phone] EXAM: US ABDOMEN, LIMITED SINGLE [...] choledocholithiasis does not rule itoutAccredited by the [employer] [employer] in General Ultrasound.DEBORA Dinh/Hosea cornelius for referring ULYSSES SHEFFIELD to our office.Electronically Signed - NAIN LUNA DO 01/24/20 17:09 Name Value Range Interpretation Code Description Data Bren rce(s) Supporting Document(s) ID Date Data Source [id number] 01/23/2020 10:06:00 AM EDT [facility] ([facility]) Name Value Range Interpretation Code Description Data Bren rce(s) Supporting Document(s) Lipoprotein lipase [Enzymatic activity/volume] in Serum or P lasma 600 U/L 73-393 [facility] ([facility]) Amylase [Enzymatic activity/volume] in Serum or Plasma 70 U/L 25- 115 [facility] ([facility]) ID Date Data Source [id number] 01/23/2020 10:06:00 AM EDT [facility] Name Value Range Interpretation Code Description Data Bren rce(s) Supporting Document(s) Blood Urea Nitrogen 5 mg/dL 7-18 [facility] ([facility]) Glucose, Fasting 297 mg/dL 70-100 [facility] ([facility]) Creatinine For GFR 0.54 mg/dL 0.55-1.30 [facility] Sodium Level 138 meq/L 136-145 [facility] ([facility]) Glomerular Filtration Rate Laboratory test result [facility] ([facility]) <content>Units are mL/min/1.73 m2</content>
<content></content>
<content>Chronic Kidney Disease Staging per NKF:</content>
<content></content>
<content>Stage I & II GFR >=60 Normal to Mildly Decreased</content>
<content>Stage III GFR 30-59 Moderately Decreased</content>
<content>Stage IV GFR 15-29 Severely Decreased</content>
<content>Stage V GFR <15 Very Little GFR Left</content>
<content>ESRD GFR <15 on DINING SERVICES MANAGER</content>
<content></content> Potassium Serum 4.4 meq/L 3.5-5.1 [facility] ([facility]) Carbon Dioxide Level 26 meq/L 21-32 [facility] Chloride Level 105 meq/L 98-107 [facility] Anion Gap 7 meq/L 8-16 [facility] Ast/Sgot 61 U/L 7-37 [facility]) Calcium Level 8.8 mg/dL 8.5-10.1 [facility] ([facility]) Alt/SGPT 58 U/L 12-78 [facility] ([facility]) Alkaline Phosphatase 88 U/L 45-117 [facility] Bilirubin,Total 1.2 mg/dL 0.2-1.0 [facility] ([facility]) Total Protein 6.2 GM/DL 6.4-8.2 [facility] ([facility]) Albumin 2.9 GM/DL 3.2-5.2 [facility] ([facility]) Albumin/Globulin Ratio 0.9 1.2-2.2 [facility] ([facility]) ID Date Data Source [id number] 01/17/2020 02:13:00 PM EDT [facility] ([facility]) Name Value Range Interpretation Code Description Data Bren rce(s) Supporting Document(s) Lipoprotein lipase [Enzymatic activity/volume] in Serum or P lasma 452 U/L 73-393 [facility] ([facility]) Amylase [Enzymatic activity/volume] in Serum or Plasma 52 U/L 25- 115 [facility] ([facility]) ID Date Data Source [id number] 01/17/2020 02:13:00 PM EDT [facility] ([facility]) Name Value Range Interpretation Code Description Data Bren rce(s) Supporting Document(s) Blood Urea Nitrogen 8 mg/dL 7-18 [facility] ([facility]) Glucose, Fasting 272 mg/dL 70-100 [facility] ([facility]) Creatinine For GFR 0.78 mg/dL 0.55-1.30 [facility] ([facility]) Glomerular Filtration Rate Laboratory test result [facility] ([facility]) <content>Units are mL/min/1.73 m2</content>
<content></content>
<content>Chronic Kidney Disease Staging per NKF:</content>
<content></content>
<content>Stage I & II GFR >=60 Normal to Mildly Decreased</content>
<content>Stage III GFR 30-59 Moderately Decreased</content>
<content>Stage IV GFR 15-29 Severely Decreased</content>
<content>Stage V GFR <15 Very Little GFR Left</content>
<content>ESRD GFR <15 on DINING SERVICES MANAGER</content>
<content></content> Sodium Level 139 meq/L 136-145 [facility] ([facility]) Potassium Serum 4.3 meq/L 3.5-5.1 [facility] ([facility]) Carbon Dioxide Level 29 meq/L 21-32 [facility] ([facility]) Chloride Level 100 meq/L 98-107 [facility] ([facility]) Calcium Level 8.8 mg/dL 8.5-10.1 [facility] ([facility]) Anion Gap 10 meq/L 8-16 [facility] Ast/Sgot 81 U/L 7-37 [facility] Alt/SGPT 79 U/L 12-78 [facility] Bilirubin,Total 1.5 mg/dL 0.2-1.0 [facility] ([facility]) Alkaline Phosphatase 90 U/L 45-117 [facility] ([facility]) Albumin 2.9 GM/DL 3.2-5.2 [facility] Total Protein 6.4 GM/DL 6.4-8.2 [facility] ([facility]) Albumin/Globulin Ratio 0.8 1.2-2.2 [facility] ([facility]) ID Date Data Source [id number] 11/22/2019 02:55:00 PM EDT [facility] ([facility]) Name Value Range Interpretation Code Description Data Bren rce(s) Supporting Document(s) Erythrocyte sedimentation rate by Westergren method 51 mm/hr 0-20 [facility] ([facility]) C reactive protein [Mass/volume] in Serum or Plasma by High sensitivity method Laboratory test result 0.00-0.30 [facility] ([facility]) ID Date Data Source [id number] 11/22/2019 02:54:00 PM EDT [facility] ([facility]) Name Value Range Interpretation Code Description Data Bren rce(s) Supporting Document(s) Urine Creatinine 236.6 mg/dL 30.0-125.0 [facility] ([facility]) Microalbumin Urine 2435.7 mg/L 1.3-20.0 [facility] ([facility]) Microalb/Creat Ratio 1029.5 ug/mg 0.0-30.0 [facility] ([facility]) ID Date Data Source [id number] 11/22/2019 02:54:00 PM EDT [facility] ([facility]) Name Value Range Interpretation Code Description Data Bren rce(s) Supporting Document(s) Thyrotropin [Units/volume] in Serum or Plasma by Detec tion limit <= 0.05 mIU/L 2.25 uIU/mL 0.36-3.74 [facility] ([facility] ) ID Date Data Source [id number] 11/22/2019 02:54:00 PM EDT [facility] ([facility]) Name Value Range Interpretation Code Description Data Bren rce(s) Supporting Document(s) Glucose [Mass/volume] in Serum or Plasma 268 mg/dL 74-99 [facility] ([facility]) 100-125 mg/dL PRE-DIABETES/FASTING >126 mg/dL DIABETES/FASTING Urea nitrogen [Mass/volume] in Serum or Plasma 7 mg/dL 7-18 [facility] ([facility]) Creatinine 0.7 mg/dL 0.6-1.3 [facility] Sodium [Moles/volume] in Serum or Plasma 141 meq/L 136-145 [facility] ([facility]) Chloride [Moles/volume] in Serum or Plasma 103 meq/L 98-107 [facility] ([facility]) Potassium [Moles/volume] in Serum or Plasma 3.6 meq/L 3.5-5.1 [facility] ([facility]) Calcium [Mass/volume] in Serum or Plasma 9.0 mg/dL 8.5-10.1 [facility] ([facility]) Alkaline phosphatase isoenzyme [Units/volume] in Serum or Pl asma 69 mg/dL 46-116 [facility] ([facility]) Carbon dioxide, total [Moles/volume] in Serum or Plasma 30 meq/L 21 -32 [facility] Total Bilirubin 0.9 mg/dL 0.2-1.0 [facility] ([facility]) Aspartate aminotransferase [Enzymatic activity/volume] in Serum or Plasma 51 U/L 15-37 [facility] ([facility] ) Alanine aminotransferase [Enzymatic activity/volume] in Seru m or Plasma 50 U/L 12-78 [facility] ([facility]) Albumin [Mass/volume] in Serum or Plasma 3.0 g/dL 3.4-5.0 [facility] ([facility]) Glomerular filtration rate/1.73 sq M pre dicted among non-blacks [Volume Rate/Area] in Serum or Plasma by Creatinine-based formula (MDRD) Laboratory test result [facility] A/G Ratio 0.75 CALC 1.00-1.90 [facility]) Proteinase 3 Ab [Units/volume] in Serum 7.0 g/dL 6.4-8.2 [facility] Glomerular filtration rate/1.73 sq M pre dicted among blacks [Volume Rate/Area] in Serum or Plasma by Creatinine-based formula (MDRD) Laboratory test result [facility] ([facility]) <content>CHRONIC KIDNEY DISEASE STAGING PER NKF</content>
<content></content>
<content>STAGE I & II GFR >= 60 NORMAL TO MILDLY DECREASED</content>
<content>STAGE III GFR 30-59 MODERATELY DECREASED</content>
<content>STAGE IV GFR 15-29 SEVERELY DECREASED</content>
<content>STAGE V GFR <15 VERY LITTLE GFR LEFT</content>
<content>ESRD GFR <15 ON DINING SERVICES MANAGER</content>
<content></content> ID Date Data Source [id number] 11/22/2019 02:54:00 PM EDT [facility] Name Value Range Interpretation Code Description Data Bren rce(s) Supporting Document(s) Hemoglobin A1c/Hemoglobin.total in Blood 8.0 g/dL 4.8-5.6 [facility] ([facility]) Lab Result Notes: Pre-Diabetes 5.7 - 6.4 % Diabetes = or > 6.5% Glucose mean value [Mass/volume] in Blood Estimated fr om glycated hemoglobin 183 mg/dL 60-110 [facility] ([facility] ) ID Date Data Source [id number] 11/22/2019 02:54:00 PM EDT [facility]) Name Value Range Interpretation Code Description Data Bren rce(s) Supporting Document(s) Erythrocytes [#/volume] in Blood by Automated count 3.69 x10*6/UL 4.2 0-6.30 [facility] Leukocytes [#/volume] in Blood by Automated count 5.7 x10*3/UL 4.1-10 .9 [facility] Hemoglobin [Mass/volume] in Blood 12.0 g/dL 12.0-18.0 [facility] ([facility]) MCH 32.6 pg 26.0-32.0 [facility] ([facility]) MCHC 33.8 g/dL 31.0-38.0 [facility] ([facility]) Hematocrit [Volume Fraction] of Blood by Automated count 35.6 % 3 7.0-51.0 [facility] MCV 96.3 fL 80.0-97.0 [facility] ([facility]) Platelets [#/volume] in Blood by Automated count 263 x10*3/UL 140-440 [facility] Erythrocyte distribution width [Ratio] by Automated count 16.3 % 11.6-13.7 [facility] MPV 7.0 FL 7.8-11.0 [facility] ([facility]) Mid % 7.6 % 1.7-9.3 [facility] ([facility]) Neut % 63.9 % 37.0-92.0 [facility] ([facility]) Lymph # 1.6 x10*3/UL 0.6-4.1 [facility] ([facility]) Lymph % 28.5 % 10.0-58.5 [facility] ([facility]) Mid # 0.5 x10*3/UL 0.1-0.6 [facility] ([facility]) Neut # 3.6 x10*3/UL 2.0-7.8 [facility] ID Date Data Source [id number] 10/21/2019 01:11:00 PM EDT [facility] Name Value Range Interpretation Code Description Data Bren rce(s) Supporting Document(s) Laboratory test finding (navigational concept) Laboratory test result [facility] ([facility]) SEE SEPARATE REPORT Testing performed at reference lab . Report copy to follow on a separate form. 10/29/19 REF LAB#:[id number] ID Date Data Source [id number] 10/21/2019 01:11:00 PM EDT [facility] Name Value Range Interpretation Code Description Data Bren rce(s) Supporting Document(s) C reactive protein [Mass/volume] in Serum or Plasma by High sensitivity method Laboratory test result 0.00-0.30 [facility] ([facility]) ID Date Data Source [id number] 10/21/2019 01:11:00 PM EDT [facility] ([facility]) Name Value Range Interpretation Code Description Data Bren rce(s) Supporting Document(s) Glucose, Fasting 203 mg/dL 70-100 [facility] ([facility]) Blood Urea Nitrogen 10 mg/dL 7-18 [facility] ([facility]) Sodium Level 139 meq/L 136-145 [facility] ([facility]) Glomerular Filtration Rate Laboratory test result [facility] ([facility]) <content>Units are mL/min/1.73 m2</content>
<content></content>
<content>Chronic Kidney Disease Staging per NKF:</content>
<content></content>
<content>Stage I & II GFR >=60 Normal to Mildly Decreased</content>
<content>Stage III GFR 30- 59 Moderately Decreased</content>
<content>Stage IV GFR 15-29 Severely Decreased</content>
<content>Stage V GFR <15 Very Little GFR Left</content>
<content>ESRD GFR <15 on DINING SERVICES MANAGER</content>
<content></content> Creatinine For GFR 0.56 mg/dL 0.55-1.30 [facility] ([facility]) Carbon Dioxide Level 27 meq/L 21-32 [facility] ([facility]) Chloride Level 105 meq/L 98-107 [facility] ([facility]) Potassium Serum 3.9 meq/L 3.5-5.1 [facility] ([facility]) Anion Gap 7 meq/L 8-16 [facility] Calcium Level 9.3 mg/dL 8.5-10.1 [facility] ([facility]) Alt/SGPT 52 U/L 12-78 [facility] Ast/Sgot 39 U/L 7-37 [facility]) Bilirubin,Total 0.9 mg/dL 0.2-1.0 [facility] Total Protein 7.2 GM/DL 6.4-8.2 [facility] ([facility]) Alkaline Phosphatase 56 U/L 45-117 [facility] Albumin/Globulin Ratio 0.89 1.00-1.93 [facility] ([facility]) Albumin 3.4 GM/DL 3.2-5.2 [facility]) ID Date Data Source [id number] 10/21/2019 01:11:00 PM EDT [facility] ([facility]) Name Value Range Interpretation Code Description Data Bren rce(s) Supporting Document(s) White Blood Count 5.2 10 4.0-10.0 [facility] Red Blood Count 3.51 10 4.00-5.40 [facility] ([facility]) Hemoglobin 11.5 g/dL 12.0-15.5 [facility] Hematocrit 36.0 % 36.0-47.0 [facility] Mean Corpuscular Volume 102.6 fl 80.0-96.0 [facility] ([facility]) Mean Corpuscular Hemoglobin 32.8 pg 27.0-33.0 [facility] ([facility]) Red Cell Distribution Width 17.2 % 11.5-14.5 [facility] ([facility]) Platelet Count, Automated 315 10 150-450 [facility] ([facility]) Mean Corpuscular HGB Conc 31.9 g/dL 32.0-36.5 [facility] ([facility]) Nucleated Red Blood Cell % 0.0 % 0-0 [facility] ([facility]) ID Date Data Source [id number] 10/18/2019 03:00:00 PM EDT [facility] Name Value Range Interpretation Code Description Data Bren rce(s) Supporting Document(s) [facility] IEJCQr6bOjVQFcLxNKZpHmtDCAprXRbrMRSzV0W6JFqaNd0JRKowolCjNUOeHg1+KHFvIN1nqg1yCWZe gMy [file] Jesus [file] 2YanGnKwH6t64sZhI+luw98+uDNz0usD1/fzzrZuyEpwg9m4pRF31dCM89XD9J+YyS5Gczk/LUIGI/sbBY7 Sc3OGyqJkUSdOuiSJkMA89wQdMVeMfcdsskaYx5l88JfliMgGtnqeGkm9Uq/aM+93JclAkUH1Wesda85 glvHM3hu//Upper sorbian/BAQAQDylzfiiAq5ny7sogYyoaOCZ1 [file] PaeZh329Y8Zby1cG3jTpXwF7W06+iu4qdeTnlg/Jose Alberto [file] Xozm5xyaa9ctfeZZSb7N2xB9/fXGqo/RCwUdO3T08lkZbln6mO3q5+v block saw operator+aUsoeYwQUVs227WZCPi+yG [file] Jesus [file] 4Ycv3+9+De Jesus+0ae3sT50Iu87xmf3+/3U9Y5+6bmf6mBFzh4F2ffLbhD7nNs/g3pkosBgboFmcOkKjsiBt [file] Soil Fertility Specialist/Qeq1spUrpe1Bhd7I1sgSJ4HCQQyDZYNpj2DDk1j44h8Z1qt/5wCJ8PNt/KHhcPO1qvz8f83N9kpNw [file] kX6Ltv8ksd0DHGoh+DE JESUS/eqxslE1xUH1yaeaqeJKW2w [file] Pr/aDUr70sv2QgJpxVX3r+XuWslBOi4PEEUGDw6/Soil Fertility Specialist [file] guhpVzKt2L1/81/DE JESUS/HXnjIFyb57RgP/R8THcJocUd5UzHol2uhD2iEafU8t8GwZ7iWEm/iEK53eQLUq [file] mRPEmX9H6+DE JESUS/0XY/+pTS6EZ0kmf135z4bl51Fg2/NAbHF3NE+/1KfnIw1rvFvbTchyrabiCiEOdYWSx [file] gullet slitter/vWyL5CrZsAcJsYY1jTa6Szu72rCYW3Otpr/WF [file] 7E+jky1Xx2zRDKaT4ayPXE007/timber bucker+GSCNqDfWf8v8fgu30Q149BOoAYOaRaW54pEh6Z/ShE59xOONNG [file] kBeVQmC/A/avionics installer+jCApKfThPDWOLVbwNc/acmVc7ldPlb1MhQgd/aoOD1aPKQoCqWNGVsS+oSie7N1qF5 [file] De Jesus+QcvgeLgrcFPQkApVnds4rNeDWK0BNQLir0nCwGcWXCVZekvs/C+hX2MRjsidgzSv38Lo+pCuBvtjU [file] 1SNAbNIg+FY+senior private client advisor+Vfd+BXBp0xJ/UKaIEUf3vZG2MGqdmtaO+xHKfKE82/kwIrTYb/XrhqCkMMtE7O3/ [file] DG2D1eujgG4QmYRb6EDhP3rjFydmhb24ibhzykdubR DE JESUS/0c2LxB4J51oV/zi4UyTSAHmEeu7UtKNV4o6Nj+aLzccDbEZWwVn0ExF07LguLgFNn/P7EcIsmSo3F 3wRm4+08hjelUcEMaqu3fHVMZZEMIH+dX9QOrbq1hmsGEpdvRaNKXsaoB2CA4mQHgRK4CTOjQs1qFvjl KFjOHlqEfHrjb1vt2mhkHOiAgm+6Cavh68bXNutBUP IcRl1L/+V05mjTp0pcyT8fpvIEWeKLrQKTJGW3GoDeaKA8p4iN7t60qKly/JkPbJqgxSZkgJx0Bc+5Rk QMcZIpa/PggubJBDI90cY3v3o2nvB/jt+w6yvzjjQx8xk6CiTSOpAI4rK+uxV4O30v4x5owjtl5fCttM NtcDw+yTIwHXIusUM4w7gLrS72CDk6qaM9JHuph40V oQdBxTbYObCBWdTjgwwxKPgAlXq6jjNbMgG+nepYX3zwONODARMtLSg3IoHB6gIFNEjGVDBGstJyMsl+ 9VwZPwmjjd3pY0WjYGMDez1/SGFrGv2JPcVFe+yZWUz++MN9UIiKa44Ocfg+ptYmXyQ4qLF5u4e3l0/d Osca0IxwPdF4oGv+T1kzzL5Axrdfg7Zix8h2aa+/ESTONIAN [file] ol/NVUdTcV6T4BulfMnBJ5pihQl4jqujYTnk9z/valentín [file] 9BqHiPeM6quwiz6T4ln9cMc4pLcKGWXchbYEGlb724fpVbKkueuOm5pqO+wy2LyuIuevzafbyXaRP+communication equipment repairer Syusvita4+jvM40YwPH07COpE5ouB2d47ICQrO2tt7eWGbw6mNodzA1u6qoSnr0VDzYq3SUhKq8cAlxp U39gtUzqUErWc9mqFrrQTZPMeymLAQEsF555+BpCzG WDubXZK930+UAuCjF9L2smoLSGrMEvNFyLkMBasmm4aPRZOIwC2XAV5nsdyuuKtDPvOwktm9y6drmJSZ m+I6R9i1jbY43ZiqjW9xXMA4NGOhoqUn4sZw7EfOl6qJCGimYbMKImFl766a8wVKjTIihGE4S6YxwTH8 JL++qe9X9UiPEV/KH7j5zTWP/LK3fRSfmiqksVot1p 5akux29mmM5xhDrSVUHigKs8hxqoqCC+Zoa68HGl06mne0+s2S4gxj3Xd527D/WCTv8aQgBQ/IeNgu1U y4bg+5GTzqb/aK6F9B7ni8pXWADJSGTDa4G1L5Ic6b8HOIRLlOW+WMMx9tmo/EEGx7+IfNbXoiN2JwfZ lxrBtMLuw0zg26zf3Pr4uIN100wOzZhdlyB417ycdK CVr1/PqasbDie3KiGJD6IbpJjAXjld3xX5dRymVBtLec+KXsFIEYRrdMoZ65KWDrQZb3m6Rbn7vdEGne x/0Y7LUxsn6cXpwy3CdAPDfZ0wWtkYh461nIPDpxJAh7zZ8bikEsYtc+INA9EENxYpU/dIan16MP+Lorena [file] gun numberer/a4U8XYXThst+1mLgmeOrL+6Jk0BQOdxNodJsunyE64gDIGb2Ld+Lp5ny4KxmR4dV8v+5CUi6vEEd [file] jeJ9UriDFfkK0/De Jesus+wgmAseqWEalBpcF9Dsg60wWxXtfl16EY9wsQSVCWrcJIpYyhGgZCerDwCtuJjZq [file] dZnwOB5id2LwmXPLgK8YRujwwhPa4nW0oqtY/XcyJB7qfFjE4hqRQLWj+doT9gS+1BKvointIsVI+intermodal dispatcher [file] 92EGjoltjlehMxel/ygdZxBWMzxvey1ujEmS5GoSNtHaGUgYE89UD+XjvnwlbIgxxBSvMdl+secretary book keeper/oYOa [file] cacKsAI39IUhglNtIlpgHZOKJxoGf8DidRbWwG/collet driller IIpnnrw72k9MN4byYYNgTYo883sAcBDQK5uWfMobc7MBPX3S5citryKlNdSuL+yNuHlXqnDFxeNvbjKq BI87tPzcozd/vrHsE8XIdneu4Sr2syz6ys5j3zSQJ49RFUiC0Pa/k76nuaucj/M8ZwwLMEfYAG8hr2Hi SM5dD0lTlErlgnZIoYuRQxVtWpD8NIfeJAF5dpgENy qS6P1X47NIlDuGlnccw+Whp2ziTQwZSXvl2XaXhe55PAwk1w6p4ey458qUxXBOby32V0kWuzlk22AIbd FLtgdnN9loVYGB2b9GWbvuafF+mnjGa/dlniKLk5J3sCsIwSGh02M2Jc1rVmNTYOowiUTfFGM3tyPtpy Kj6y+dJX73kAMfNTiydRtz7UB5j06GmfQqBE25x5jb mrceXVLq1Xn9HYhL+eqRsfsQ/yeDRQ/HQJa/b/Ce21LO8IKFfpiNvq4ttQJJsyuDbTlKW1z8dPiVdwW0 mvB7zcu/6Nk89VcZWzrgScM0r/CyaTAajaQLnnjDMzN5bEo8rHZ1M432Gr+3KtFy0+QYAUWCtY4OEKCK IgflO2s8mjH2qasR7apxcgH75cYR9fQUjIH0GoLpER UKzpC2EohwZtK2mDA/BbIsinRG42KsVYJX3yme3raPKRBwSULnHTii8sFW2NQNe8Bl7l+9kjGPAIulQg iC+nl3yI0atyp0wgUvayXT/YpnNcLoljICPEmeoxaxFDl8xbsQkVc0bSm1gTY2t+GWgZJnzN1gD7ZbvP ftQTc+nEYwg4mkIqqWPRukgEQY9W2on34moy1/fIQF 9ACkuWjyU10UpBWPDCpAyWgOtFEu+7CRMqUdjJEbfzUCJP+xEX/qegD32LHXkNbjCUQKIQfTKcIaiA14 EDciwAvJOd5DOfUrBMgosX1xd09HGKDiW/nCsoO/W0zC2ucRPqbMKTr1p2PFiW9YZk9Hh6ZwlitgzCxj xaUlPtfJsAaPQjctbgnKHsIcWUaWxkQHNWSVUYTtPs [file] vp data/1kJrBc4E0Xfv9zZsl9uZRCAfiuxuB4+rFuts2zKaXqZmSEkrxFdc75YW3kr60khKko3DQRhdDD0uy [file] NuSpMZ6nvy+pQsl8PbOtW/rrnpYk/LIDDING MACHINE OPERATOR+TcVpdYRjgYND/q8g7J01WqjNRRSDNkLXcZcnNA5w+/kyfJ5 [file] rVHRtpcqyV3F5tKiT7NIFcd8ybEalxt/8kDGk1vswF29431FeVCICP/cigarette paper tester+i0J8otZ4EzBrdraCze2fs [file] Beverly/oyPqN4WW52CBEXcGePfNyvUzqN8pbZ5DeceeJ6OBzISJdQY7RjXCKV6nJdqaKHOT0f6yHc2hdHbX ns6T40amqLEvG6siGVqbtRKKd36a6YXpe4LBxq6jIJ 5kCktLaOTwHPO283M0Zp1J5YFhb7gyEoFmv+3eFUN0/LvSIkg7Z1tkroSy28+cacXWtGE31voMR1wnBK OynKqdf+NeVE6OcQ80mjOfi7Wbyuz+H05LvOilaKGcCse/2aJ4//9lkf1FAOgYrBfxOpKL2iG1Wt8Umq fSdTUdi5QOwSGhsXXvmnvL2cEx2dTigxxB18fXddyV jG/eRoBjk3k0bOzztyMs9vHafOJZpLhLGzvr/A73mRgchocmPRjae23x4qWOz0jBHQXtyb5TlGdmIsb/ Aw4yiZGmck4sFQrZ702os/zxHkQmH75FbjwISxMAC64++fHbyMOWxHtaes/8anrk+2FWfYq62CKgq+cT gJiTPYst2O1K9++JOSE M/u7rj5O7knJ/b9Aqc+u1f/eP [file] +IfOXz5x10tJrZOkQTksLq6TAu47C4tuZnYSvhEoUVFNG5wdmkCnmPHfTxmENB8q+l73RMHr7y4P3+ELECTRIC LOCOMOTIVE CRANE OPERATOR [file] q1EhtSFmthS6JDVxboFdK86AnUa8XXrIjGBIhm3JBDXV7oU3P5+kw0g73ZbQHiW9M+dbptE0IU0p+credit collection associate [file] 7Rz+vp data/icd/L7GNUzPnqA+KkriFCkW51y18zrJy467 [file] NUdGtIPJGk8b1EZ2QhV2ZzoeGV9QNNaPqU7+FVENXuqc0D0l5f2e0cqD35beVww/vp data+Ys6wCi/0Urvd7 [file] vutvLGierXlPB4g/7kqlWEjjJOezeUgz1xJOn7bvgNGSOKB+qkfT2PP8wRA3MKzVafT4wiE+LIP OF SHANK CUTTER/Ybo6R [file] scej3Egpd6fqI/iisDzKK0kvSA9Wgb/0fzH81/ELECTRIC LOCOMOTIVE CRANE OPERATOR/R/Efzv2j+P/ALdolDpenP+nRgSdmFe8fMaLEpgp [file] sXMMFiFz9TgSGZtIQlMwEMqD/1GbSFs5y83UyzauuVxYCc0zAVEhh3X9x/sUA62Vkw+c3OK0ROfiu/Soil Fertility Specialist [file] Scp9ZvV4XWLWKLENCWE9OZ7fYMORIUGGJwzBZeTMHI iKUEG1ZQxmEBs4UqERM7O5SPRhTq4wYa1jiYUvKESnMe8FvzEjHSHbNVMPX9KjndGoOvZiVZfdYRHuHE OzWn5VBHtbHKBbEN2+OkI1yuRppO9JdFvyYQAgwSSlWWDeGZHDPF3RmGq8GFFWPOFbcQRPJs+AyLsyQJ KncSOIbNIDk/NBIjTUF0vsY9SpytHZwQ4raPUBsoFI gqqvO8CwxoPVPGNONysKQWUULCfAbisJxRIxONCM/v4CRp9KER0wq1JoMNIgLPjxuyJlYfkVEAgsuOAi gVevBSHTRoW0FYs7CYBUNeXsLE9J ID Date Data Source [id number] 10/07/2019 06:48:45 AM EST [facility] NT INFORMATIONPatient MRN Name Date of Age Gend*PT [id number] [address] 1975 43 years F IPPT Location Admission Date/Time Visit ID Attending [id number] 08/26/19 1601 --- --- EPI ID CSN Admitting Provider [id number] Ok Hester MD([id number]) [place] [address] DISCHARGE SUMMARY DISCHSUMNAME: ULYSSES SHEFFIELD#: [id number] #: [id number] ADMISSION DATE: 08/26/2019DOB: 1975 SEX: F PT TYPE: I SURACCT #: [id number] CARE PHYSICIAN: BRANDIN RODRIGUES OF DISCHARGE: 08/08HOSPITAL [...] followed in the office.YUKO FIGUEROA/NTS Job #: [id number] DOC #: [id number] Name Value Range Interpretation Code Description Data Bren rce(s) Supporting Document(s) ID Date Data Source [id number] 09/23/2019 11:09:05 AM EST [facility]FORMATIONPatient MRN Name Date of Age Gend*PT [id number] U[address]es [address] 1975 43 years F IPPT Location Admission Date/Time Visit ID Attending [id number] 08/26/19 1601 --- --- EPI ID CSN Admitting Provider [id number] Ok Hester MD([id number]) [place] [address] OPERATIVE REPORT OPNAME: ULYSSES SHEFFIELD#: [id number] #: [id number] ADMISSION DATE: 08/26/2019DOB: 1975 SEX: F PT TYPE: I SURACCT #: [id number] CARE PHYSICIAN: BRANDIN RODRIGUES OF OPERATION: 020PREOPERATIVE [...] evidenceof any Crohn's disease, transected with a MARLENI. Just distal to theanastomosis, another MARLENI was placed across the colon, which appearedhealthy. Mesentery was taken down with 0 chromic suture ligatures. Uybul-yj-rjeo anastomosis was performed. There appeared to be very goodblood supply to both s egments of intestine. MARLENI firing was performed, theensuing hole was then closed with a TA 60. The jatn-xn-nfjh staple linewas reinforced with 3-0 Vicryl suture. Hemostasis was checked and found gaston adequate. Lap count was correct as was the instrument count. Abdomenwas closed with a running #1 PDS. Subcutaneous tissue was irrigated andthe skin was closed with cyndi. Sponge, needle and instrument count werecorrect.ESTIMATED BLOOD LOSS:150-200 mLYUKO FIGUEROA/BR[place] Job #: [id number] DOC #: [id number]: GRANT TUCKER MD Name Value Range Interpretation Code Description Data Bren rce(s) Supporting Document(s) ID Date Data Source [id number] 09/12/2019 10:50:00 AM EST [facility] ([facility]) Name Value Range Interpretation Code Description Data Bren rce(s) Supporting Document(s) Bacteria identified in Urine by Culture Laboratory test result [facility] ([facility]) <content>FULL REPORT IN LAB NOTES (eCW a [...] <=1 S</content>
<content></content> ID Date Data Source [id number] 09/12/2019 10:49:00 AM EST [facility] Name Value Range Interpretation Code Description Data Bren rce(s) Supporting Document(s) Urine Color Laboratory test result [facility] T ([facility]) Urine Appearance Laboratory test result Abnormal (applies to non-numeric results) [facility] Urine PH 6.0 units 5.0-9.0 [facility]) Specific gravity of Urine 1.020 1.005-1.030 [place] [facility] ([facility]) Urine Blood Laboratory test result Abnormal (applies to non-numeric results) [facility] ([facility]) Urine Leukocytes Laboratory test result Abnormal (applies to non-numeric results) [facility] ([facility]) Glucose [Presence] in Urine Laboratory test result [facility] ([facility]) Urine Protein Laboratory test result 0-0 Abnormal (applies to non-numeric results) [facility] ([facility]) Urine Nitrite Laboratory test result [facility]NT ([facility]) Urine Ketone Laboratory test result MEDE NT ([facility]) Bilirubin.total [Mass/volume] in Serum or Plasma Laboratory test resu lt [facility] ([facility]) Urine Urobilinogen 0.2 mg/dL 0.2-1.0 [facility] ([facility]) ID Date Data Source [id number] 09/03/2019 08:24:12 AM EST [facility] Name Value Range Interpretation Code Description Data Bren rce(s) Supporting Document(s) POC NOVA GLU 155 mg/dL (70-99) H [facility] [place] [facility] [place] [facility] ID Date Data Source [id number] 09/02/2019 05:27:49 PM EST [facility] Name Value Range Interpretation Code Description Data Bren rce(s) Supporting Document(s) POC NOVA GLU 177 mg/dL (70-99) H [facility] [place] [facility] [place] [facility] ID Date Data Source [id number] 09/02/2019 01:51:53 PM EST [facility] Name Value Range Interpretation Code Description Data Bren rce(s) Supporting Document(s) POC NOVA GLU 186 mg/dL (70-99) H [facility] [place] [facility] [place] [facility] ID Date Data Source [id number] 09/02/2019 08:30:16 AM EST [facility] Name Value Range Interpretation Code Description Data Bren rce(s) Supporting Document(s) POC NOVA GLU 169 mg/dL (70-99) H [facility] [place] [facility] [place] [facility] ID Date Data Source [id number] 09/02/2019 10:02:31 AM EST [facility] Name Value Range Interpretation Code Description Data Bren rce(s) Supporting Document(s) MAGNESIUM 1.5 mg/dL (1.7-2.4) L [facility] ID Date Data Source [id number] 09/02/2019 10:02:31 AM EST [facility] Name Value Range Interpretation Code Description Data Bren rce(s) Supporting Document(s) SODIUM 139 mmol/L (136-145) [facility] POTASSIUM 3.3 mmol/L (3.6-5.2) L [facility] CHLORIDE 104 mmol/L (100-108) [facility] CO2 24 mmol/L (22-31) [facility] ANION GAP 11 mmol/L (7-16) [facility] UREA NITROGEN 6 mg/dL (7-24) L [facility] CREATININE 0.60 mg/dL (0.60-1.00) [facility] BUN/CREAT RATIO 10.0 RATIO (10.0-20.0) [facility] GLUCOSE 165 mg/dL (70-99) H [facility] CALCIUM 8.1 mg/dL (8.4-10.2) L [facility] TOTAL PROTEIN 5.3 g/dL (6.4-8.2) L [facility] ALBUMIN 2.1 g/dL (3.5-4.6) L [facility] GLOBULIN 3.2 g/dL (2.7-4.3) [facility] ALB/GLOB RATIO 0.7 RATIO [facility] ALKALINE PHOSPHATASE 68 U/L (45-117) [facility] BILIRUBIN,TOTAL 0.7 mg/dL (0.0-1.0) [facility] [place] [facility] AST (SGOT) 24 U/L (11-39) [facility] ALT (SGPT) 41 U/L (12-78) [facility] GFR >60 ml/min/1.73m2 (>59) [facility] GFR ( AMER) >60 ml/min/1.73m2 (>59) [facility] GFR INTERPRETATION [facility] --NORMAL KIDNEY FUNCTION OR MILD DISEASE - GFR >OR= 60CHRONIC KIDNEY DISEASE - GFR 15 - 59RENAL FAILURE - GFR <15 Est. GFR calculation based on the MDRDstudy equation, which assumes a steadystate for creatinine. Est. GFR should notbe used for medication dosing. ID Date Data Source [id number] 09/02/2019 09:19:10 AM EST [facility] Name Value Range Interpretation Code Description Data Bren rce(s) Supporting Document(s) WBC 4.9 10*3/uL (4.1-11.0) [facility] [place] RBC 3.16 10*6/uL (4.00-5.40) L [facility] [place] [facility] HGB 11.1 g/dL (12.0-16.0) L [facility] [place] [facility] HCT 32.5 % (36.0-47.0) L [facility] [place] [facility] MCV 102.8 fL (80.0-95.0) H [facility] [place] [facility] MCH 35.2 pg (27.0-32.0) H [facility] [place] [facility] MCHC 34.2 g/dL (32.0-36.0) [facility] RDW 16.3 % (10.5-14.5) H [facility] [place] [facility] PLT 272 10*3/uL (150-450) [facility] MPV 6.8 fL (7.1-10.7) L [facility] [place] [facility] ID Date Data Source [id number] 09/01/2019 06:30:44 PM EST [facility] Name Value Range Interpretation Code Description Data Bren rce(s) Supporting Document(s) POC NOVA GLU 142 mg/dL (70-99) H [facility] [place] [facility] [place] [facility] ID Date Data Source [id number] 09/01/2019 10:26:14 AM EST [facility] Name Value Range Interpretation Code Description Data Bren rce(s) Supporting Document(s) POC NOVA GLU 209 mg/dL (70-99) H [facility] [place] [facility] [place] [facility] ID Date Data Source [id number] 09/01/2019 09:30:36 AM EST [facility] Name Value Range Interpretation Code Description Data Bren rce(s) Supporting Document(s) SODIUM 140 mmol/L (136-145) [facility] POTASSIUM 3.2 mmol/L (3.6-5.2) L [facility] CHLORIDE 102 mmol/L (100-108) [facility] CO2 26 mmol/L (22-31) [facility] ANION GAP 12 mmol/L (7-16) [facility] UREA NITROGEN 9 mg/dL (7-24) [facility] CREATININE 0.70 mg/dL (0.60-1.00) [facility] BUN/CREAT RATIO 12.9 RATIO (10.0-20.0) [facility] GLUCOSE 177 mg/dL (70-99) H [facility] [place] [facility] CALCIUM 8.6 mg/dL (8.4-10.2) [facility] GFR >60 ml/min/1.73m2 (>59) [facility] GFR ( AMER) >60 ml/min/1.73m2 (>59) [facility] GFR INTERPRETATION [facility] --NORMAL KIDNEY FUNCTION OR MILD DISEASE - GFR >OR= 60CHRONIC KIDNEY DISEASE - GFR 15 - 59RENAL FAILURE - GFR <15 Est. GFR calculation based on the MDRDstudy equation, which assumes a steadystate for creatinine. Est. GFR should notbe used for medication dosing. ID Date Data Source [id number] 09/01/2019 09:30:36 AM EST [facility] Name Value Range Interpretation Code Description Data [facility] Supporting Document(s) MAGNESIUM 1.7 mg/dL (1.7-2.4) [facility] ID Date Data Source [id number] 09/01/2019 09:07:31 AM EST [facility] Name Value Range Interpretation Code Description Data Bren rce(s) Supporting Document(s) WBC 5.0 10*3/uL (4.1-11.0) [facility] [place] [facility] [place] RBC 3.61 10*6/uL (4.00-5.40) L [facility] [place] [facility] HGB 12.6 g/dL (12.0-16.0) [facility] [place] [facility] HCT 37.3 % (36.0-47.0) [facility] [place] [facility] MCV 103.3 fL (80.0-95.0) H [facility] [place] [facility] MCH 34.8 pg (27.0-32.0) H [facility] [place] [facility] MCHC 33.7 g/dL (32.0-36.0) [facility] [place] [facility] RDW 16.2 % (10.5-14.5) H [facility] [place] [facility] PLT 353 10*3/uL (150-450) [facility] [place] [facility] MPV 6.4 fL (7.1-10.7) L [facility] [place] [facility] ID Date Data Source [id number] 08/31/2019 10:15:29 PM EST [facility] Name Value Range Interpretation Code Description Data Bren rce(s) Supporting Document(s) POC NOVA GLU 133 mg/dL (70-99) H [facility] [place] [facility] [place] [facility] ID Date Data Source [id number] 08/31/2019 04:58:50 PM EST [facility] [place] [facility] Name Value Range Interpretation Code Description Data Bren rce(s) Supporting Document(s) POC NOVA GLU 150 mg/dL (70-99) H [facility] [place] [facility] [place] [facility] ID Date Data Source [id number] 08/31/2019 11:46:12 AM EST [facility] Name Value Range Interpretation Code Description Data Bren rce(s) Supporting Document(s) POC NOVA GLU 231 mg/dL (70-99) H [facility] [place] [facility] [place] [facility] ID Date Data Source [id number] 08/31/2019 09:05:13 AM EST [facility] Name Value Range Interpretation Code Description Data Bren rce(s) Supporting Document(s) POC NOVA GLU 182 mg/dL (70-99) H [facility] [place] [facility] [place] [facility] ID Date Data Source [id number] 08/31/2019 11:25:06 AM EST [facility] Name Value Range Interpretation Code Description Data Bren rce(s) Supporting Document(s) MAGNESIUM 1.7 mg/dL (1.7-2.4) [facility] [place] [facility] ID Date Data Source [id number] 08/31/2019 07:53:12 AM EST [facility] Name Value Range Interpretation Code Description Data Bren rce(s) Supporting Document(s) SODIUM 140 mmol/L (136-145) [facility] [place] [facility] POTASSIUM 3.0 mmol/L (3.6-5.2) L [facility] [place] [facility] CHLORIDE 100 mmol/L (100-108) [facility] [place] [facility] CO2 34 mmol/L (22-31) H [facility] [place] [facility] ANION GAP 6 mmol/L (7-16) L [facility] [place] [facility] UREA NITROGEN 5 mg/dL (7-24) L [facility] [place] [facility] CREATININE 0.54 mg/dL (0.60-1.00) L [facility] [place] [facility] BUN/CREAT RATIO 9.3 RATIO (10.0-20.0) L [facility] [place] [facility] GLUCOSE 168 mg/dL (70-99) H [facility] [place] [facility] CALCIUM 8.5 mg/dL (8.4-10.2) [facility] [place] [facility] GFR >60 ml/min/1.73m2 (>59) [facility] [place] [facility] GFR ( AMER) >60 ml/min/1.73m2 (>59) [facility] [place] [facility] GFR INTERPRETATION [facility] --NORMAL KIDNEY FUNCTION OR MILD DISEASE - GFR >OR= 60CHRONIC KIDNEY DISEASE - GFR 15 - 59RENAL FAILURE - GFR <15 Est. GFR calculation based on the MDRDstudy equation, which assumes a steadystate for creatinine. Est. GFR should notbe used for medication dosing. ID Date Data Source [id number] 08/31/2019 07:01:43 AM EST [facility] Name Value Range Interpretation Code Description Data Bren rce(s) Supporting Document(s) WBC 5.5 10*3/uL (4.1-11.0) [facility] [place] [facility] [place] RBC 3.33 10*6/uL (4.00-5.40) L [facility] [place] [facility] HGB 11.8 g/dL (12.0-16.0) L [facility] [place] [facility] HCT 34.2 % (36.0-47.0) L [facility] [place] [facility] MCV 102.6 fL (80.0-95.0) H [facility] [place] [facility] MCH 35.4 pg (27.0-32.0) H [facility] [place] [facility] MCHC 34.5 g/dL (32.0-36.0) [facility] [place] [facility] RDW 15.7 % (10.5-14.5) H [facility] [place] [facility] PLT 281 10*3/uL (150-450) [facility] [place] [facility] MPV 6.5 fL (7.1-10.7) L [facility] [place] [facility] ID Date Data Source [id number] 08/30/2019 05:26:52 PM EST [facility] Name Value Range Interpretation Code Description Data Bren rce(s) Supporting Document(s) POC NOVA GLU 155 mg/dL (70-99) H [facility] [place] [facility] [place] [facility] ID Date Data Source [id number] 08/30/2019 12:36:32 PM EST [facility] [place] [facility] Name Value Range Interpretation Code Description Data Bren rce(s) Supporting Document(s) POC NOVA GLU 231 mg/dL (70-99) H [facility] [place] [facility] [place] [facility] ID Date Data Source [id number] 08/29/2019 06:58:01 PM EST [facility] Name Value Range Interpretation Code Description Data Bren rce(s) Supporting Document(s) POC NOVA GLU 147 mg/dL (70-99) H [facility] [place] [facility] [place] [facility] ID Date Data Source [id number] 08/29/2019 03:46:28 PM EST [facility] [place] [facility] Name Value Range Interpretation Code Description Data Bren rce(s) Supporting Document(s) POC NOVA GLU 206 mg/dL (70-99) H [facility] [place] [facility] [place] [facility] ID Date Data Source [id number] 08/29/2019 09:04:52 AM EST [facility] [place] [facility] Name Value Range Interpretation Code Description Data Bren rce(s) Supporting Document(s) POC NOVA GLU 177 mg/dL (70-99) H [facility] [place] [facility] [place] [facility] ID Date Data Source [id number] 08/29/2019 10:10:09 AM EST [facility] [place] [facility] Name Value Range Interpretation Code Description Data Bren rce(s) Supporting Document(s) SODIUM 141 mmol/L (136-145) [facility] [place] [facility] POTASSIUM 3.6 mmol/L (3.6-5.2) [facility] [place] [facility] CHLORIDE 105 mmol/L (100-108) [facility] [place] [facility] CO2 29 mmol/L (22-31) [facility] [place] [facility] ANION GAP 7 mmol/L (7-16) [facility] UREA NITROGEN 11 mg/dL (7-24) [facility] CREATININE 0.59 mg/dL (0.60-1.00) L [facility] [place] [facility] BUN/CREAT RATIO 18.6 RATIO (10.0-20.0) [facility] GLUCOSE 183 mg/dL (70-99) H [facility] [place] [facility] CALCIUM 7.9 mg/dL (8.4-10.2) L [facility] [place] [facility] GFR >60 ml/min/1.73m2 (>59) [facility] [place] [facility] GFR ( AMER) >60 ml/min/1.73m2 (>59) [facility] GFR INTERPRETATION [facility] --NORMAL KIDNEY FUNCTION OR MILD DISEASE - GFR >OR= 60CHRONIC KIDNEY DISEASE - GFR 15 - 59RENAL FAILURE - GFR <15 Est. GFR calculation based on the MDRDstudy equation, which assumes a steadystate for creatinine. Est. GFR should notbe used for medication dosing. ID Date Data Source [id number] 08/29/2019 09:38:39 AM EST [facility] Name Value Range Interpretation Code Description Data Bren rce(s) Supporting Document(s) WBC 5.0 10*3/uL (4.1-11.0) [facility] [place] [facility] RBC 3.32 10*6/uL (4.00-5.40) L [facility] [place] [facility] HGB 11.8 g/dL (12.0-16.0) L [facility] [place] [facility] HCT 34.9 % (36.0-47.0) L [facility] [place] [facility] MCV 105.4 fL (80.0-95.0) H [facility] [place] [facility] MCH 35.6 pg (27.0-32.0) H [facility] [place] [facility] MCHC 33.8 g/dL (32.0-36.0) [facility] [place] [facility] RDW 16.7 % (10.5-14.5) H [facility] [place] [facility] PLT 304 10*3/uL (150-450) [facility] [place] [facility] MPV 6.5 fL (7.1-10.7) L [facility] [place] [facility] ID Date Data Source [id number] 08/28/2019 07:14:27 PM EST [facility] [place] [facility] Name Value Range Interpretation Code Description Data Bren rce(s) Supporting Document(s) POC NOVA GLU 176 mg/dL (70-99) H [facility] [place] [facility] [place] [facility] ID Date Data Source [id number] 08/28/2019 02:47:19 PM EST [facility] INFORMATIONPatient MRN Name Date of Age Gend*PT [id number] [address] 1975 43 years F IPPT Location Admission Date/Time Visit ID Attending Provider --- --- --- --- EPI ID CSN Admitting Provider [id number] ---AirwayPatient location during procedure: ORUrgency: electiveDifficult airway: [...] cmPlacement verified by: chest auscultation and + LLBF1Sqcevlgvzyue: equal breath sounds bilateralGrade view: grade I - full view of glottis Name Value Range Interpretation Code Description Data Bren rce(s) Supporting Document(s) ID Date Data Source [id number] 08/28/2019 01:42:10 PM EST [facility] Name Value Range Interpretation Code Description Data Bren rce(s) Supporting Document(s) POC NOVA GLU 238 mg/dL (70-99) H [facility] [place] [facility] [place] [facility] ID Date Data Source [id number] 08/28/2019 12:09:02 PM EST [facility] Name Value Range Interpretation Code Description Data Bren rce(s) Supporting Document(s) POC NOVA GLU 287 mg/dL (70-99) H [facility] [place] [facility] [place] [facility] ID Date Data Source [id number] 08/28/2019 08:38:01 AM EST [facility] Name Value Range Interpretation Code Description Data Bren rce(s) Supporting Document(s) EKG [facility] UFOMZf3tXbCGWzZmh7WxZzJvKFCjTM0qeuq2N2I3nMAjI7IdcMYwm9zbH7UmD0KwUDHrOTXATT3RvGAh jb2 [file] +UArMr2DonsmpZM+ez0yd19ipODyXtmhhX7k9GzDDq+X4c0SjgXd/Zxg0osVem8P7+qeVyKr9iS28t Z9aS+kChbmaZ72mdK6Zax87ucPwDvsj3k3cTxcgdSQ g7zobb48AkP9JZ3JsTvdHgYcer/0fEMhWRxWmr9pDoL2zrhaobyK+APf8/rXNO8HtVre6R3S/jrInnvX 492icM10v/mdgk56mdc6GPal2N22PP8vJajw9iOwzkrxVxG48Xetd/9oif/eWf83L/TmX/OS/3fcee6+ PvHgek5ngGtYKw+M5+58iKG1halM/9gfWnW3gHmcjx +nRwbKaVwDDPYqb19qk2i/hK7yu+flyt50pG/zueM/Automotive Leasing Sales Representative+fPmcaahHN0KQh3HVbcOq5JE5W6HOntNsi 0Vq01061K34XgzkvAAAmXNy6evsn1+GroXFy+ErryDEz/HD4feUgbaF2cnUekRjUhtJ81SwMoB8hV0CY e5Ut0Qm01Eqa7996pBOhSKu+TBETafFn6Hn17a6Ncb 29TEbctAgv3G/gfwlzr1zc+h+styh3M5Pj+yqoRw3B2PfxrWbiaOu+Wm7ynPxQgv/7q0m/sjzxndRzWs q3tUUR26d1LKLq0n/1HatN+bEiQfzA1AcAtqpoWB4aqdHlMlB+oQKyrPyRM9zZ/F6FM3eUuRlSO3l/5j o6KQv5ldIyYxbLTsiZVeJpwEexX5z7oEJ9zegIstpr ph4ehGymzX0oXdD+UP2o/hGJdRueQVG1LNj5WhcFKslJYv8xfStXvtuUS7s6ud/ksJwo7Y42lJ8xCh3n /aDaX/kP9cHXumPGWX+i0vBhv0aNTn4w1p9VAcnWbw7Gh/oXda1Rlfr+x62lkmVLgx0sqJrU22v4dOy/ rRyo7s7e/jmWgPf/I+uwcp/AhBnOaw8jrf++WqrD4a ut/tV+0NrpryCst0vz6/d82p0qLI3x/pP9nF+5S8/fuf89h/8/t7Z/zsv9c+7957zcPy/Zf87L/fOd++ j20O7ikC/Oy/2q7X8aBa8/Y9d+cEjO/WB/JuQ8R+iWghBIokPfuCe7jb5Vi8O7rvY65Mqbof2dRZHv+E 2v57QvK3mvxyA05tZzlNu/2gkv6Z6jGK/N60a5z2vf EL5zewxSrD33sAulqya65Crp/l/xHa2/+i2Gg9hPV438pFMkn2584Wngzp+oPtV+5JP0n1BQfaXI2DOm 7zXlnOa/5cDFhQ3rpKJx6McjEAXY3LvaJF28uNV+u/uEqxCYW8V2Ne6G/9ndrnyz6xv6N/hGkm2m0/+1 7p/0GzpnOonkC0VY4HsvrE3d99Bch0dhL7Ofvqf06O yYVyoLJ3cdVbjmQRfv8irQSbk9+BcxdbDcQk1oc8IDe5C+HsgFckCukJMn+3K1R3egjUJaro2Fr7V0nN NA/9l28i7LFR995jNM/eT4vi4hC18MmOm1wsVPc6yX+nP3vw34OhC8F96IgLVBgcAn+STW0Z2RuhK1+/ +J7y/TjfmD8UeJ7k5sS8irMNeFNg744Sek7Nr6jPE3 vCQWv955I/GB4mQHm86JRjFb/P+AXCGfckPfP+U+kgfkU+4lbaP9ixBXWslK6WY265mO+pXlBrlDHvjt zDocvqrK/5puobE4AO+Ermf782Xqb2z3B+xcZThcf7tNt7HG57d/aRQddlr6TIlF/J0d8dp4ut//75f3 huZW8vRlq3U+oSf/uPz2R5A1b9g5vn14Nxy1UVg/c1 7unw/Luigi+fl/nmE/QAh3ahs4f/wBoNnDCc0qK3tvBQF7EoeF6Kn8V886Zxhejxtj6DbY8+MmXrOEF+pHW euifY2PLnzD4tT/g2OCr7RC+OjjX2oauuTzTL35QxjXPIrgs4e3hqHtQbG0M4I9zfgg6Er36SO65tdw9 X062atP9+d+vPQ+JLYv096znrSc2/9T9aZz/VP3mOe 25+6Uk8Yq6c3khkcuW8nd0+3mn4fs4vuPu7KqrtN3Vpj74lq8F8Hud1Oo48Nm8wd17Hqai+p/oOUE4i8 h51kxUR/wk76A74yy/Q6luA38km27KLk4srm1HqJwwAjSxB7pwJUJqP/J/Joanna/rVFF+ddpvRIQ/IaR+c [file] FZE1rnTx6qNeDbIOURE9Uzc1DyIUHbQJZSMd1+TuK6WYG8yWJePvd0EHC8PUvhDCNLMu== ID Date Data Source [id number] 08/28/2019 08:35:39 AM EST [facility] [place] deborah ANAND Name Value Range Interpretation Code Description Data Bren rce(s) Supporting Document(s) POC NOVA GLU 188 mg/dL (70-99) H [facility] [place] [facility] [place] [facility] PERFORMED BY [facility] STA[facility] ID Date Data Source [id number] 09/05/2019 10:15:05 AM EST [facility] [place] deborah ANAND [facility] [address]# Surgical Pathology ReportAccession #:[id number](s) ReceivedA: Ileum [...] lobulated cut surfaces. No lymph nodesare identified. Computer Peripheral Equipment Operator sections are submitted as labeled:A1. Differentially inked resection margins from shorter segmentperpendicular A2- A3. Sections of first segment to include serosal adhesions A4. Differentially inked resection margins from second segment A5-A6. Sections of small bowel from second segment to include mucosalulceration A7. Previous anastomosis A8. Large bowel mucosa adjacent to anastomosisA9. Additional section of large bowel Processed at [facility], Histopathology, [address] [place] [address], [id number].rebecca/[email or web address] Reported: 09/05/2019Electronically Signed Out By Ty Hernández MD [facility] This report may include immunohistochemical or in-situ hybridizationresults. Testing was developed and the performance characteristicsdetermined by Pending sale to [facility] as required by CLIA '88. The FDAhas determined that approval for specific use is not necessary forclinical use. The quality of Hematoxylin and Eosin stains and asapplicable, for all immunohistochemical and/or special stains, includingpositive and negative controls, were reviewed and considered appropriate.ICD codes K56.609 K50.818CPT codesA: 10562Z Name Value Range Interpretation Code Description Data Bren rce(s) Supporting Document(s) ID Date Data Source [id number] 08/28/2019 08:03:26 AM EST [facility] INFORMATIONPatient MRN Name Date of Age Gend*PT [id number] 1975 43 years F IPPT Location Admission Date/Time Visit ID Attending [id number] 08/26/19 1601 --- Ok Hester MD([id number]) EPI ID CSN Admitting Provider [id number] Ok Hester MD([id number])Pre-Procedure History and Physical:The history and physical were reviewed and no changes are noted.Ok Hester MD Name Value Range Interpretation Code Description Data Bren rce(s) Supporting Document(s) ID Date Data Source [id number] 08/28/2019 08:09:43 AM EST [facility] [place] [facility] [place] Name Value Range Interpretation Code Description Data Bren rce(s) Supporting Document(s) HCG, QUAL. SERUM (NEG) [facility] ID Date Data Source [id number] 08/28/2019 07:53:02 AM EST [facility] Name Value Range Interpretation Code Description Data Bren rce(s) Supporting Document(s) SODIUM 143 mmol/L (136-145) [facility] POTASSIUM 3.6 mmol/L (3.6-5.2) [facility] CHLORIDE 106 mmol/L (100-108) [facility] CO2 28 mmol/L (22-31) [facility] ANION GAP 9 mmol/L (7-16) [facility] UREA NITROGEN 14 mg/dL (7-24) [facility] CREATININE 0.60 mg/dL (0.60-1.00) [facility] BUN/CREAT RATIO 23.3 RATIO (10.0-20.0) H [facility] GLUCOSE 142 mg/dL (70-99) H [facility] CALCIUM 8.2 mg/dL (8.4-10.2) L [facility] GFR >60 ml/min/1.73m2 (>59) [facility] GFR ( AMER) >60 ml/min/1.73m2 (>59) [facility] GFR INTERPRETATION [facility] --NORMAL KIDNEY FUNCTION OR MILD DISEASE - GFR >OR= 60CHRONIC KIDNEY DISEASE - GFR 15 - 59RENAL FAILURE - GFR <15 Est. GFR calculation based on the MDRDstudy equation, which assumes a steadystate for creatinine. Est. GFR should notbe used for medication dosing. ID Date Data Source [id number] 08/28/2019 07:44:03 AM EST [facility] Name Value Range Interpretation Code Description Data Bren rce(s) Supporting Document(s) WBC 4.5 10*3/uL (4.1-11.0) [facility] RBC 3.49 10*6/uL (4.00-5.40) L [facility] HGB 12.3 g/dL (12.0-16.0) [facility] HCT 36.1 % (36.0-47.0) [facility] MCV 103.6 fL (80.0-95.0) H [facility] MCH 35.4 pg (27.0-32.0) H [facility] MCHC 34.2 g/dL (32.0-36.0) [facility] RDW 16.4 % (10.5-14.5) H [facility] PLT 288 10*3/uL (150-450) [facility] MPV 6.8 fL (7.1-10.7) L [facility] ID Date Data Source [id number] 08/27/2019 08:33:35 PM EST [facility] Name Value Range Interpretation Code Description Data Bren rce(s) Supporting Document(s) POC NOVA GLU 194 mg/dL (70-99) H [facility] PERFORMED BY [facility] ID Date Data Source [id number] 08/27/2019 06:02:48 PM EST [facility] Name Value Range Interpretation Code Description Data Bren rce(s) Supporting Document(s) POC NOVA GLU 216 mg/dL (70-99) H [facility] ID Date Data Source [id number] 08/27/2019 01:11:00 PM EST [facility] Name Value Range Interpretation Code Description Data Bren rce(s) Supporting Document(s) POC NOVA GLU 302 mg/dL (70-99) H [facility] ID Date Data Source [id number] 08/27/2019 09:38:19 PM EST [facility] Name Value Range Interpretation Code Description Data Bren rce(s) Supporting Document(s) HEMOGLOBIN A1C @ 10.7 % (4.0-6.0) H [facility] Performed using Siemens Cantwell immunoassa y.Care must be taken when interpreting [id number] in patients with a hemoglobin variantor decreased erythrocyte lifespan. Values 5.7 - 6.4% suggest prediabetes.Values >=6.5% are diagnostic for diabetes.REFERENCE: DIABETES CARE 2018: 41(S13-S27).PERFORMED AT [address] [place] [id number] EST [place] GLUCOSE 260 mg/dL [facility] ID Date Data Source [id number] 08/27/2019 02:24:17 PM EST [facility] SPEC EXP DATE 08/30/2019PATI ENT ABO/Rh B POSITIVEANTIBODY SCREEN NEGATIVETESTING SITE PERFORMED AT [address] [place] [address] [id number] BANK COMMENT BLOOD TYPE CONFIRMED. Name Value Range Interpretation Code Description Data Bren rce(s) Supporting Document(s) TYPE AND SCREEN [facility] ID Date Data Source [id number] 08/27/2019 10:31:14 AM EST [facility] INFORMATIONPatient MRN Name Date of Age Gend*PT [id number] [address] 1975 43 years F OBSPT Location Admission Date/Time Visit ID Attending [id number] 08/26/19 1601 --- Ok Hester MD([id number]) EPI ID CSN Admitting Provider [id number] Ok Hester MD([id number])Inpatient Consult NoteUlysses Sheffield Dr. for consult: SBOImpression [...] AND FISTULOTOMY ; Surgeon: Ok Hester MD;Location: [facility]; Service: Colorectal; Laterality: N/A; ANAL FISTULOTOMY N/A 05/06/2016 Procedure: ANAL FISTULOTOMY WITH SETON PLACEMENT; Surgeon: Ok Hester MD;Location: [facility]; Service: Colorectal; Laterality: N/A; ANAL FISTULOTOMY N/A 12/29/2017 Procedure: FISTULOTOMY ANAL; Surgeon: Ok Hester MD; Laterality: N/A; APPENDECTOMY CHOLECYSTECTOMY COLONOSCOPY 2015 CYSTOSCOPY INCISION AND DRAINAGE PERIRECTAL ABSCESS N/A 01/07/2016 Procedure: INCISION AND DRAINAGE RECTAL ABSCESS; Surgeon: Ok Hester MD;Location: [facility]; Service: Colorectal; Laterality: N/A; INCISION AND DRAINAGE PERIRECTAL ABSCESS N/A 12/16/2015 Procedure: INCISION AND DRAINAGE ISCHIORECTAL ABSCESS; Surgeon: Ok Hester MD; Location: [facility]; Service: Colorectal; Laterality: N/A; INCISION AND DRAINAGE PERIRECTAL ABSCESS N/A 11/13/2015 Procedure: INCISION AND DRAINAGE RECTAL ABSCESS WITH SETON PLACEMENT ;Surgeon: Ok Hester MD; Location: [facility]; Service: Colorectal;Laterality: N/A; INCISION AND DRAINAGE PERIRECTAL ABSCESS N/A 11/17/2016 Procedure: INCISION AND DRAINAGE ISCHIORECTAL ABSCESS; Surgeon: Ok Hester MD; Location: [facility]; Service: Colorectal; Laterality: N/A; LITHOTRIPSY X3 Small [...] mcg by mouth daily12/26/2017 vitamin D, Ergocalciferol, 34338 UNITS CAPS Take 1 capsule by mouth [...] Imaging and Other Diagnostics:Diagnostic tests reviewed:Labs from [facility] Brief:Lab ResultsComponent Value Date WBC 3.0 [...] No results found for: PROTIME, INR, APTT, LMEDBLFUAK15/30/2019: Colonoscopy. Prpe was adequate. 1 seton removed [...] rce(s) Supporting Document(s) ID Date Data Source [id number] 08/27/2019 10:01:14 AM EST [facility] NT INFORMATIONPatient MRN Name Date of Age Gend*PT [id number] U[address] 1975 43 years F OBSPT Location Admission Date/Time Visit ID Attending [id number] 08/26/19 1601 --- Ok Hester MD([id number]) EPI ID CSN Admitting Provider [id number] Ok Hester MD([id number])Patient is transferred with exacerbation of her Crohn's disease. She presentswith crampy abdominal pains and nausea. She is not had any episodes of emesis.She had worsening of her symptoms while hospitalized in [place]. He has aknown history of recurrent ileal [...] rce(s) Supporting Document(s) ID Date Data Source [id number] 08/27/2019 09:56:46 AM EST [facility] NT INFORMATIONPatient MRN Name Date of Age Gend*PT [id number] U[address] 1975 43 years F OBSPT Location Admission Date/Time Visit ID Attending [id number] 08/26/19 1601 --- Ok Hester MD([id number]) EPI ID CSN Admitting Provider [id number] Ok Hester MD([id number]) Attestation signed by Ok Hester MD at 08/27/2019 9:56 AMSignature: ABI Figueroaate: August 27, 2019Time: 9:56 AM --Surgical Services History&PhysicalUlysses Sheffield Dr. 1975 43 years08/26/2019 PCP: BRANDIN HUMPHRIES MDInformant: Ulysses Sheffield Dr[address] Reliable Yes; [facility] "I have a Small bowel obstruction"HPI: Ulysses [...] AND FISTULOTOMY ; Surgeon: Ok Hester MD;Location: [facility]; Service: Colorectal; Laterality: N/A; ANAL FISTULOTOMY N/A 05/06/2016 Procedure: ANAL FISTULOTOMY WITH SETON PLACEMENT; Surgeon: Ok Hester MD;Location: [facility]; Service: Colorectal; Laterality: N/A; ANAL FISTULOTOMY N/A 12/29/2017 Procedure: FISTULOTOMY ANAL; Surgeon: Ok Hester MD; Laterality: N/A; APPENDECTOMY CHOLECYSTECTOMY COLONOSCOPY 2015 CYSTOSCOPY INCISION AND DRAINAGE PERIRECTAL ABSCESS N/A 01/07/2016 Procedure: INCISION AND DRAINAGE RECTAL ABSCESS; Surgeon: Ok Hester MD;Location: [facility]; Service: Colorectal; Laterality: N/A; INCISION AND DRAINAGE PERIRECTAL ABSCESS N/A 12/16/2015 Procedure: INCISION AND DRAINAGE ISCHIORECTAL ABSCESS; Surgeon: Ok Hester MD; Location: [facility]; Service: Colorectal; Laterality: N/A; INCISION AND DRAINAGE PERIRECTAL ABSCESS N/A 11/13/2015 Procedure: INCISION AND DRAINAGE RECTAL ABSCESS WITH SETON PLACEMENT ;Surgeon: Ok Hester MD; Location: [facility]; Service: Colorectal;Laterality: N/A; INCISION AND DRAINAGE PERIRECTAL ABSCESS N/A 11/17/2016 Procedure: INCISION AND DRAINAGE ISCHIORECTAL ABSCESS; Surgeon: Ok Hester MD; Location: [facility]; Service: Colorectal; Laterality: N/A; LITHOTRIPSY X3 Small [...] mcg by mouth daily12/26/2017 vitamin D, Ergocalciferol, 75536 UNITS CAPS Take 1 capsule by mouth [...] is fair, oropharynx without exudates or lesions.Heart: [id number]: CTA bilaterally. Respiratory effort non- labored.Abdomen: Obese, softly distended, minimally TTP RLQ, bowel sounds present, noguarding no rebound tenderness.Back: No CVA tenderness.Musculoskeletal: No muscle atrophy or weakness appreciated.Vascular/Ext: No calf tenderness or LE edema. Distal pulses intact.L abs, Imaging and other Diagnostics:Labs reviewed from [facility] 08/26/19 0539 as followsWBC 4.1H&H 12.8/38.3plt 287Cr 0.58CT abd/pelvis with IV contrastKUBChest XRAbove images on disc from [facility], Brought to imaging & awaiting uploads.Assessment and [...] rce(s) Supporting Document(s) ID Date Data Source [id number] 08/27/2019 08:01:23 AM EST [facility] Name Value Range Interpretation Code Description Data Bren rce(s) Supporting Document(s) POC NOVA GLU 308 mg/dL (70-99) H [facility] ID Date Data Source [id number] 08/27/2019 09:36:31 AM EST [facility] Name Value Range Interpretation Code Description Data Bren rce(s) Supporting Document(s) ALBUMIN 2.9 g/dL (3.5-4.6) L [facility] ID Date Data Source [id number] 08/27/2019 09:02:23 AM EST [facility] Name Value Range Interpretation Code Description Data Bren rce(s) Supporting Document(s) SODIUM 138 mmol/L (136-145) [facility] POTASSIUM 4.3 mmol/L (3.6-5.2) [facility] CHLORIDE 100 mmol/L (100-108) [facility] CO2 29 mmol/L (22-31) [facility] ANION GAP 9 mmol/L (7-16) [facility] UREA NITROGEN 16 mg/dL (7-24) [facility] CREATININE 0.73 mg/dL (0.60-1.00) [facility] BUN/CREAT RATIO 21.9 RATIO (10.0-20.0) H [facility] GLUCOSE 296 mg/dL (70-99) H [facility] CALCIUM 8.4 mg/dL (8.4-10.2) [facility] GFR >60 ml/min/1.73m2 (>59) [facility] GFR ([facility] AM) >60 ml/min/1.73m2 (>59) [facility] GFR INTERPRETATION [facility] --NORMAL KIDNEY FUNCTION OR MILD DISEASE - GFR >OR= 60CHRONIC KIDNEY DISEASE - GFR 15 - 59RENAL FAILURE - GFR <15 Est. GFR calculation based on the MDRDstudy equation, which assumes a steadystate for creatinine. Est. GFR should notbe used for medication dosing. ID Date Data Source [id number] 08/27/2019 08:38:21 AM EST [facility] Name Value Range Interpretation Code Description Data Bren rce(s) Supporting Document(s) WBC 3.0 10*3/uL (4.1-11.0) L [facility] RBC 3.63 10*6/uL (4.00-5.40) L [facility] HGB 12.8 g/dL (12.0-16.0) [facility] HCT 38.1 % (36.0-47.0) [facility] PERFORMED AT [address] [place] [address] N [place] [address] MCV 104.8 fL (80.0-95.0) H [facility] MCH 35.3 pg (27.0-32.0) H [facility] MCHC 33.7 g/dL (32.0-36.0) [facility] RDW 16.2 % (10.5-14.5) H [facility] PLT 319 10*3/uL (150-450) [facility] MPV 7.1 fL (7.1-10.7) [facility] Procedure Social History Code Duration Value Status Description Data Source(s ) Alcohol intake 09/01/2019 12:00:00 AM EST Yes completed [facility] Smoking 09/01/2019 12:00:00 AM EST Never smoker completed Never s moker [facility] Vital Signs ID Date Data Source UNK Name Value Range Interpretation Code Description Data Source(s) Body mass index (BMI) [Ratio] 41.3 kg/m2 41.3 k g/m2 [facility] ([facility]) Body weight 260.00 [lb_av] 260.00 [lb_av] [facility] Body height 66.50 [in_i] 66.50 [in_i] [facility] ([facility]) 5'6.50" Heart rate 68 /min 68 /min [facility] Diastolic blood pressure 68 mm[Hg] 68 mm[Hg] [facility] ([facility]) Systolic blood pressure 120 mm[Hg] 120 mm[Hg] [facility] ([facility]) Body mass index (BMI) [Ratio] 43.9 kg/m2 43.9 k g/m2 [facility] Body weight 276.00 [lb_av] 276.00 [lb_av] [facility] Body height 66.50 [in_i] 66.50 [in_i] [facility] ([facility]) 5'6.50" Heart rate 76 /min 76 /min [facility] ([facility]) Diastolic blood pressure 727 mm[Hg] 727 mm[Hg] [facility] ([facility]) Systolic blood pressure 118 mm[Hg] 118 mm[Hg] [facility] ([facility] [facility]) Body mass index (BMI) [Ratio] 47.1 kg/m2 47.1 k g/m2 [facility] ([facility]) Body weight 296.00 [lb_av] 296.00 [lb_av] [facility] ([facility]) Body height 66.50 [in_i] 66.50 [in_i] [facility] ([facility]) 5'6.50" Heart rate 82 /min 82 /min [facility] ([facility]) Diastolic blood pressure 76 mm[Hg] 76 mm[Hg] [facility] ([facility]) Systolic blood pressure 128 mm[Hg] 128 mm[Hg] [facility] ([facility]) Body mass index (BMI) [Ratio] 47.9 [...] weight 296.00 [lb_av] 296.00 [lb_av] [facility] ([facility]) Heart rate 80 /min 80 /min [facility] ([facility]) Diastolic blood pressure 78 mm[Hg] 78 mm[Hg] [facility] ([facility]) Systolic blood pressure 128 mm[Hg] 128 mm[Hg] [facility] ([facility]) Body mass index (BMI) [Ratio] 47.6 [...] by Pulse oximetry 93 % 93 % [facility] Respiratory rate 20 /min 20 /min [facility] Body temperature 36.78 Roro 36.78 Roro [facility] Heart rate 97 /min 97 /min [facility] Diastolic blood pressure 68 mm[Hg] 68 mm[Hg] [facility] Systolic blood pressure 105 mm[Hg] 105 mm[Hg] [facility] Body mass index (BMI) [Ratio] 49.55 kg/m2 49.55 kg/m2 [facility] Body weight 139.254 kg 139.254 kg [facility] Body height 167.6 cm 167.6 cm [facility] Patient Treatment Plan of Care Planned Activity Planned Date Details Description Data Source (s) Acetaminophen 325 MG / Hydrocodone Bitartrate 5 MG Ora l Tablet 09/03/2019 12:00:00 AM [facility] cefdinir 300 MG Oral Capsule 08/18/2019 12:00:00 AM EST [facility] Multiple Vitamin (MULTIVITAMIN) tablet [facility] Probiotic Product (PROBIOTIC DAILY PO) [facility] Ergocalciferol 56803 UNT Oral Capsule [facility] certolizumab pegol 200 MG Injection [facility]
--- OUTSIDE RECORDS SUMMARY | 2020-08-22 07:31 | CCD ---
Author Author [facility] Organization [facility] Address Unknown Phone Unavailable Care Team Providers Care Composition Worker Name Role Phone Alexandra Humphries MD Unavailable Unavailable Alexandra Humphries MD Unavailable Unavailable Alexandra Humphries MD Unavailable Unavailable Alexandra Humphries MD Unavailable Unavailable Alexandra Humphries MD Unavailable Unavailable Alexandra Humphries MD Unavailable Unavailable Alxeandra Humphries MD Unavailable Unavailable Alexandra Humphries MD [...] MD Unavailable Unavailable AnaAlexandra MD Unavailable Unavailable [place] MD Unavailable Unavailable AnaAlexandra MD Unavailable Unavailable [place] MD Unavailable Unavailable [place] MD Unavailable Unavailable AnaAlexandra MD Unavailable Unavailable AnaAlexandra MD Unavailable Unavailable [place] MD Unavailable Unavailable [place] MD Unavailable Unavailable [place] MD Unavailable Unavailable [place] MD Unavailable Unavailable [place] MD Unavailable Unavailable [place] MD Unavailable Unavailable [place] MD Unavailable Unavailable [place] MD Unavailable Unavailable AnaAlexandra MD Unavailable Unavailable AnaAlexandra MD Unavailable Unavailable AnaAlexandra MD Unavailable Unavailable [place] MD Unavailable Unavailable [place] MD Unavailable Unavailable [place] MD Unavailable Unavailable AnaAlexandra MD Unavailable Unavailable AnaAlexandra MD Unavailable Unavailable [place] MD Unavailable Unavailable [place] MD Unavailable Unavailable [place] MD Unavailable Unavailable AnaAlexandra MD Unavailable Unavailable AnaAlexandra MD Unavailable Unavailable AnaAlexandra MD Unavailable Unavailable [place] MD Unavailable Unavailable AnaAlexandra MD Unavailable Unavailable AnaAlexandra MD Unavailable Unavailable AnaAlexandra MD Unavailable Unavailable AnaAlexandra MD Unavailable Unavailable [place] caldera MD Unavailable Unavailable [place] MD Unavailable Unavailable AnaAlexandra MD Unavailable Unavailable AnaAlexandra caldera MD Unavailable Unavailable AnaAlexandra MD Unavailable Unavailable [place] MD Unavailable Unavailable AnaAlexandra caldera MD Unavailable Unavailable AnaAlexandra caldera MD Unavailable Unavailable [place] MD Unavailable Unavailable AnaAlexandra MD Unavailable Unavailable AnaAlexandra MD Unavailable Unavailable [place] MD Unavailable Unavailable [place] MD Unavailable Unavailable AnaAlexandra MD Unavailable Unavailable [place] MD Unavailable Unavailable [place] MD Unavailable Unavailable AnaAlexandra MD Unavailable Unavailable [place] MD Unavailable Unavailable [place] MD Unavailable Unavailable AnaAlexandra MD Unavailable Unavailable [place] MD Unavailable Unavailable [place], Alexandra Ferrara MD Unavailable Unavailable Ana, Alexandra Ferrara MD Unavailable Unavailable [place], Alexandra Ferrara MD Unavailable Unavailable Ana, Alexandra Ferrara MD Unavailable Unavailable [place], Alexandra Ferrara MD Unavailable Unavailable [place], Alexandra Ferrara MD Unavailable Unavailable [place], Alexandra Ferrara MD Unavailable Unavailable EV (ISADORA), [...] Unavailable Unavailable Alexandra Humphries MD Unavailable Unavailable [place] MD Unavailable Unavailable AnaAlexandra MD Unavailable Unavailable AnaAlexandra MD Unavailable Unavailable [place] MD Unavailable Unavailable AnaAlexandra MD Unavailable Unavailable AnaAlexandra MD Unavailable Unavailable AnaAlexandra MD Unavailable Unavailable AnaAlexandra MD Unavailable Unavailable [place] MD Unavailable Unavailable AnaAlexandra MD Unavailable Unavailable AnaAlexandra MD Unavailable Unavailable AnaAlexandra MD Unavailable Unavailable [place] MD Unavailable Unavailable [place] MD Unavailable Unavailable AnaAlexandra MD Unavailable Unavailable AnaAlexandra MD Unavailable Unavailable [place] MD Unavailable Unavailable AnaAlexandra MD Unavailable Unavailable AnaAlexandra MD Unavailable Unavailable [place] MD Unavailable Unavailable AnaAlexandra MD Unavailable Unavailable [place] MD Unavailable Unavailable [place] MD Unavailable Unavailable AnaAlexandra MD Unavailable Unavailable AnaAlexandra MD Unavailable Unavailable AnaAlexandra MD Unavailable Unavailable AnaAlexandra MD Unavailable Unavailable AnaAlexandra MD Unavailable Unavailable [place] MD Unavailable Unavailable AnaAlexandra MD Unavailable Unavailable [place] MD Unavailable Unavailable AnaAlexandra MD Unavailable Unavailable AnaAlexandra MD Unavailable Unavailable AnaAlexandra MD Unavailable Unavailable AnaAlexandra MD Unavailable Unavailable AnaAlexandra MD Unavailable Unavailable [place] MD Unavailable Unavailable [place] MD Unavailable Unavailable AnaAlexandra MD Unavailable Unavailable [place] MD Unavailable Unavailable AnaAlexandra MD Unavailable Unavailable [place] MD Unavailable Unavailable [place] MD Unavailable Unavailable AnaAlexandra MD Unavailable Unavailable AnaAlexandra MD Unavailable Unavailable AnaAlexandra MD Unavailable Unavailable [place] MD Unavailable Unavailable AnaAlexandra MD Unavailable Unavailable AnaAlexandra MD Unavailable Unavailable [place] MD Unavailable Unavailable AnaAlexandra MD Unavailable Unavailable AnaAlexandra MD Unavailable Unavailable AnaAlexandra MD Unavailable Unavailable [place] MD Unavailable Unavailable [place] MD Unavailable Unavailable Ana, Alexandra Ferrara MD Unavailable Unavailable [place], Alexandra Ferrara MD Unavailable Unavailable Ana, F Brandin MD Unavailable Unavailable Ana, F Brandin MD Unavailable Unavailable [place], F Brandin MD Unavailable Unavailable Ana, F Brandin MD Unavailable Unavailable [place], F Brandin MD Unavailable Unavailable [place], F Brandin MD Unavailable Unavailable Ana, F Brandin MD Unavailable Unavailable Ana, F Brandin MD Unavailable Unavailable Ana, F Brandin MD Unavailable Unavailable Ana, F Brandin MD Unavailable Unavailable Ana, F Brandin MD Unavailable Unavailable [place], F Brandin MD Unavailable Unavailable [place], F Brandin MD Unavailable Unavailable Ana, F Brandin MD Unavailable Unavailable Ana, F Brandin MD Unavailable Unavailable [place], F Brandin MD Unavailable Unavailable Ana, F Brandin MD Unavailable Unavailable [place], F Brandin MD Unavailable Unavailable Ana, F [...] BURNS MD Unavailable Unavailab le EV ([place]), Fiorlela BURNS MD Unavailable Unavailab le EV ([place]AD[place]A), [...] M GRANT MD Unavailable Unavailab le EV (ISADROA), M GRANT MD Unavailable Unavailab le EV [...] is protected by Article 27-F of the [facility] Public Health law. If you continue you may have access to information: Regarding HIV / AIDS; Provided by facilities licensed or operated by the [facility] Office of Mental Health; or Provided by the [facility] Office for People With Developmental Disabilities. If such information is present, then the following [facility] mandated warning applies: This information [...] law may result in a fine or skilled nursing sentence or both. A general authorization for the release of medical or other information is NOT sufficient authorization for further disc losure. Family History Family Member Name Family Member Gender Family Member Status Date o f Status Description Data Source(s) Unknown Unknown Problem [facility] ([facility]) Unknown Female Problem [facility] ([facility], ) Encounters Encounter Providers Location Date Indications Data Source(s ) Unknown [id number] [address] 08/18/2020 12:00:00 AM EST eCW1 ([facility]) Outpatient Attender: Brandin Grimes 1 02:45:00 PM EDT MED[facility] ([facility] ) Attender: GRANT TUCKER ([place]) MDReferrer: Cammie Humphries MD 02/13/2020 08:20:07 PM EDT [facility] Attender: GRANT TUCKER ([place]) MDReferrer: Cammie Humphries MD 02/13/2020 08:20:07 PM EDT [facility] Outpatient Attender: Brandin Grimes 0 01/27/2020 03:00:00 PM EDT MED[facility] ([facility] ) Outpatient Referrer: GRANT TUCKER MD [...] Grimes 0 11/22/2019 02:30:00 PM EDT MED[facility] ([facility] ) Outpatient Referrer: [id number] 11/03/2019 [...] Grimes 0 09/12/2019 09:20:00 AM EST [facility] ([facility] ) Outpatient Referrer: [id number] NRI 09/11/2019 10:16:00 AM EST [facility] Outpatient Referrer: [id number] NR 08/29/2019 03:40:00 PM EST [facility] Inpatient Attender: Ok Krishnan aneudy: Thaddeus Roberto MDAdmitter: Ok Hester MD [id number] 08/26/2019 04:01:00 PM EST - 09/03/2019 10:42:00 AM EST [facility] Patient discharged. Medications Medication Brand Name [...] 01/27/2020 12:00:00 AM EDT ORAL active MEDENT ([facility]) 500 mg 01/27/2020 12:00:00 AM EDT tablet 180 TAKE ONE TABLET BY MOUTH EVERY MORNING AND 2 TABLETS AT SUPPER TAKE ONE TABLET BY MOUTH EVERY MORNING A ND 2 TABLETS AT SUPPER SOLD: 01/27/2020 [facility] Ondansetron 4 MG Oral Tablet Ondansetron HCL 01/27/2020 12:00:00 AM EDT active MED[facility] ([facility]) Metformin hydrochloride 500 MG Oral [...] 12/31/2019 12:00:00 AM EDT ORAL active [facility] ([facility]) 2.5 mg 12/03/2019 12:00:00 AM EDT [...] 09/13/2019 12:00:00 AM EST ORAL completed [facility] ([facility]) 100 mg 09/13/2019 12:00:00 AM EST capsule 6 TAKE 1 CAPSULE BY MOUTH TWICE DAILY FOR 3 DAYS TAKE 1 CAPSULE BY MOUTH TWICE DAILY FOR 3 DAYS SOLD: 0 09/13/2019 [facility] Prednisone 10 MG Oral Tablet Prednisone 09/12/2019 12:00:00 AM EST active [facility] ([facility]) Ergocalciferol 2000 UNT Oral Tablet Vitamin D2 09/12/2019 12:00:00 AM EST active [facility] ([facility]) 50 mg 09/05/2019 12:00:00 AM [...] Daily, First dose on Mon09/03/19 at 0900 [facility] Medication administered onsite Acetaminophen 325 MG / Hydrocodone Lisa trate 5 MG Oral Tablet HYDROcodone- acetaminophen (NORCO) 5-325 MG per tablet HYDROcodone-acetaminophen (NORCO) 5- 325 MG per tablet 09/03/2019 12:00:00 AM EST 1 {tbl} Oral active Take 1 tablet by mouth every 6 (six) hours as needed for pain Max Daily Amount: 4 tablets [facility] 5-325 mg 09/03/2019 12:00:00 AM EST tablet 5 TAKE ONE TABLET BY MOUTH EVERY 6 HOURS NEEDED FOR PAIN, MAXIMUM DAILY DOSE = 4 TAKE ONE TABLET BY MOUTH EVERY 6 HOURS NEEDED FOR PAIN, MAXIMUM DAILY DOSE = 4 SOLD: 09/03/2019 [employer] potassium chloride SA (K-DUR,KLOR-CON) CR tablet 40 mEq [id number] 09/02/2019 05:00:00 PM EST 40 meq Oral completed 40 mEq, Oral, Once, Mon09/02/19 at 1700, For 1 dose [facility] Medication administered onsite Hydrocortisone 50 MG/ML Injectable Solut ion hydrocortisone sodium succinate (Solu-CORTEF) injection 75 mg hydrocortisone sodium succinate (Solu-CO RTEF) injection 75 mg 09/02/2019 09:00:00 AM EST 75 mg Intravenous aborted 75 mg, Intravenous, Daily, First dose on Mon09/02/19 at 0900, Post-op [facility] Medication administered onsite Acetaminophen 325 MG / Oxycodone Hydroch loride 5 MG Oral Tablet oxyCODONE- acetaminophen (PERCOCET) 5-325 MG 1-2 tablet oxyCODONE-acetaminophen (PERCOCET) 5-325 MG 1-2 tablet 09/02/2019 07:23:48 AM EST Oral active 1-2 tablet, Oral, Every 4 hours PRN, moderate pain (4-6), severe pain (7-10), Starting Mon09/02/19 at 0723, For 7 days [facility] Medication administered onsite Insulin Glargine 100 UNT/ML Injectable S olution [Lantus] insulin glargine (LANTUS) injection 10 Units insulin glargine (LANTUS) injection 10 Units 09/01/2019 09:00:00 PM EST 10 U Subcutaneous active 10 Units, Subcutaneous, Nightly (Lantus), First dose on Mon09/01/19 at 2100
Basal Insulin (Lantus) Adjustments based on AM Blood GlucoseBlood GlucoseAdjustmentLess than 70 mg/dl Nursing to initiate hypoglycemia [id number] to 100 mg/dl Pharmacy to decrease total daily d ose by 20%101 to 200 mg/dl No Change
[facility] Medication administered onsite Saccharomyces boulardii 250 MG Oral Caps ule saccharomyces boulardii (FLORASTOR) capsule 250 mg saccharomyces boulardii (FLORASTOR) capsule 250 mg 01:00:00 PM EST 250 mg Oral active 250 mg, Oral, 2 times daily, First dose on 09/01/19 at 1300
Swallow whole.DO NOT OPEN CAPSULE
[facility] Medication administered onsite potassium chloride SA (K-DUR,KLOR-CON) CR tablet 40 mEq [id number] 9-359-09/01/2019 12:00:00 PM EST 40 meq Oral completed 40 mEq, Oral, Once, 09/01/19 at 1200, For 1 dose [facility] Medication administered onsite pantoprazole 4 MG/ML [...] 0.9% NaCl and push over 2 minutes.
[facility] Stress Ulcer Prophylaxis Gastroesophageal Reflux Disease Medication administered onsite sodium chloride 0.9% (NS) bolus 1,000 mL [id number] 09/01/2019 10:00:00 AM EST 1000 mL Intravenous completed 1, 000 mL, Intravenous, Administer over 2 Hours, Once, 09/01/19 at 1000, For 1 dose [facility] Medication administered onsite Hydrocortisone 50 MG/ML Injectable Solut ion hydrocortisone sodium succinate (Solu-CORTEF) injection 75 mg hydrocortisone sodium succinate (Solu-CO RTEF) injection 75 mg 09/01/2019 09:00:00 AM EST 75 mg Intravenous aborted 75 mg, Intravenous, Daily, First dose on 09/01/19 at 0900, Post-op [facility] Medication administered onsite potassium chloride SA (K-DUR,KLOR-CON) CR tablet 40 mEq [id number] 9-359-08/31/2019 11:00:00 AM EST 40 meq Oral completed 40 mEq, Oral, Once, 08/31/19 at 1100, For 1 dose [facility] Medication administered onsite Albuterol 0.83 MG/ML Inhalant Solution a lbuterol (PROVENTIL) nebulizer solution 2.5 mg albuterol (PROVENTIL) nebulizer solution 2.5 mg 2019 09:23:40 PM EST 2.5 mg active 2.5 mg, Nebulization, Every 2 hour PRN, wheezing, shortness of breath, Starting Keri 08/29/19 at 2123 [facility] Medication administered onsite morphine SHOWCASE TRIMMER 1 mg/mL 08/29/2019 07:00:00 PM EST Intraven ous aborted Intravenous, Continuous, Starting Mon08/29/19 at 1900, For 138 hours, Post-op [facility] Medication administered onsite Hydrocortisone 50 MG/ML Injectable Solut ion hydrocortisone sodium succinate (Solu-CORTEF) injection 100 mg hydrocortisone sodium succinate (Solu-CO RTEF) injection 100 mg 08/29/2019 09:00:00 AM EST 100 mg Intravenous aborted 100 mg, Intravenous, Daily, First dose on Mon08/29/19 at 0900, Post-op [facility] Medication administered onsite Hydrochlorothiazide 12.5 MG Oral Tablet hydrochlorothiazide (HYDRODIURIL) tablet 12.5 mg hydrochlorothiazide (HYDRODIURIL) tablet 12.5 mg 08/29 09:00:00 AM EST 12.5 mg Oral active 12.5 mg, Oral, Daily, First dose on Mon08/29/19 at 0900, Post-op
Hold for SBP <120
[facility] Medication administered onsite Famotidine (PEPCID) injection 20 mg [id number] 08/28/2019 09:00:0 0 PM EST 20 mg Intravenous aborted Stress Ulcer Pr ophylaxisGastroesophageal Reflux Disease 20 mg, Intravenous, 2 times daily, First dose on Mon08/28/19 at 2100, Post-op
For IV Push - Dilute with 10 mL of 0.9% NaCl and push over 2 minutes.
[facility] Stress Ulcer Prophylaxis Gastroesophageal Reflux Disease Medication administered onsite morphine SHOWCASE TRIMMER 1 mg/mL 08/28/2019 05:00:00 PM EST Intraven ous aborted Intravenous, Continuous, Starting Mon08/28/19 at 1700, For 165 hours, Post-op [facility] Medication administered onsite morphine 1 mg/ml SHOWCASE TRIMMER bolus 4 mg [id number] 08/28/2019 03:00:[address] 4 mg Intravenous completed 4 mg, Intrave nous, Once, Mon08/28/19 at 1500, For 1 dose [facility] Medication administered onsite Metronidazole 5 MG/ML Injectable Solution metroNIDAZOL E (FLAGYL) IVPB 500 mg metroNIDAZOLE (FLAGYL) IVPB 500 mg 08/28/2019 03:00:00 PM EST 50 0 mg Intravenous completed Perioperative Pharmacoprophylaxis 500 mg, Intravenous, Administer over 60 Minutes, Every 8 hours (relative), First dose on Mon08/28/19 at 1500, For 24 hours, Post-op [facility] Perioperative Pharmacoprophylaxis Medication administered onsite Acetaminophen 325 MG Oral Tablet acetaminophen (TYLENO L) 325 MG tablet 650 mg acetaminophen (TYLENOL) 325 MG tablet 650 mg 08/28/2019 02:00:00 PM EST 650 mg Oral active 650 mg, Or al, Every 6 hours (relative), First dose on Mon08/28/19 at 1400, Post-op
"Maximum dose of acetaminophen is 4,000 mg from all sources in 24 hours."
[facility] Medication administered onsite cefazolin (ANCEF) injection 2 g 08/28/2019 02:00:00 PM EST 2 g Intravenous completed Perioperative Pharmacoprophylaxis 2 g, Intravenous, Administer over 6 Minutes, Every 8 hours (relative), First dose on Mon08/28/19 at 1400, For 24 hours, Post-op
RN may administer IV push or infuse this medication through syringe adapter set ref [id number]. Flush line after use
[facility] Perioperative Pharmacoprophylaxis Medication administered onsite dextrose 5 % and sodium chloride 0.45 % with KCl 20 mEq/L in fusion [id number] 08/28/2019 02:00:00 PM EST Intravenous active at 75 mL/hr, Intravenous, Continuous, Starting Mon08/28/19 at 1400, Post-op
This is a "Triggered Filled Infusion" and is automatically sent based on the current rate documented in the flow sheets
[facility] Medication administered onsite morphine SHOWCASE TRIMMER 1 mg/mL 08/28/2019 02:00:00 PM EST Intraven ous aborted Intravenous, Continuous, Starting Mon08/28/19 at 1400, For 7 days, Post-op [facility] Medication administered onsite 1 ML Ketorolac Tromethamine 15 MG/ML Car tridge ketorolac (TORADOL) injection 15 mg ketorolac (TORADOL) injection 15 mg 08/28/2019 02:00:00 PM EST 15 mg Intravenous completed 15 mg, Intrav enous, Once, Mon08/28/19 at 1400, For 1 dose [facility] Medication administered onsite alvimopan 12 MG [...] (>7 days) treatment prior to surgery: No [facility] Medication administered onsite Regular Insulin, Human 100 UNT/ML Inject able Solution insulin regular (HumuLIN,NovoLIN) injection 7 Units insulin regular (HumuLIN,NovoLIN) inject ion 7 Units 08/28/2019 01:00:00 PM EST 7 U Intravenous compl eted 7 Units, Intravenous, Once, Mon08/28/19 at 1300, For 1 dose, PACU (only) [facility] Medication administered onsite HYDROmorphone (DILAUDID) injection 0.5 mg [id number] 08/28/2019 11:52:54 AM EST 0.5 mg Intravenous aborted 0.5 mg, Intravenous, Every 5 min PRN, severe pain (7-10), Starting Mon08/28/19 at 1152, For 5 doses, PACU (only) [facility] Medication administered onsite fentaNYL Citrate (PF) (SUBLIMAZE) injection 25 mcg [id number] 08/28/2019 11:52:54 AM EST 25 ug Intravenous aborted 25 mcg, Intravenous, Every 5 min PRN, moderate pain (4 to 6), Starting Mon08/28/19 at 1152, For 5 doses, PACU (only) [facility] Medication administered onsite alvimopan 12 MG Oral Capsule alvimopan (ENTEREG) capsu le 12 mg alvimopan (ENTEREG) capsule 12 mg 08/28/2019 09:00:00 AM EST 12 mg Oral completed 12 mg, Oral, call center associate, Mon08/28/19 at 090 0, For 1 dose, [...] (>7 days) treatment prior to surgery: No [facility] Medication administered onsite Hydrocortisone 20 MG Oral Tablet hydrocortisone (RAHEEL F) tablet 100 mg hydrocortisone (CORTEF) tablet 100 mg 08/28/2019 06:00:00 AM EST 10 0 mg Oral completed 100 mg, Oral, Once, Mon at 0600, For 1 dose [facility] Medication administered onsite Insulin Glargine 100 UNT/ML Injectable S olution [Lantus] insulin glargine (LANTUS) injection 5 Units insulin glargine (LANTUS) injection 5 Units 08/27/2019 10:00:00 PM EST 5 U Subcutaneous aborted 5 Units, Subcutaneous, Nightly (Lantus), First dose on Mon08/27/19 at 2200
Basal Insulin (Lantus) Adjustments based on AM Blood GlucoseBlood GlucoseAdjustmentLess than 70 mg/dl Nursing to initiate hypoglycemia [id number] to 100 mg/dl Pharmacy to decrease total daily d ose by 20%101 to 200 mg/dl No Change
[facility] Medication administered onsite Insulin Lispro 100 UNT/ML Injectable Tracee ution insulin lispro (HumaLOG) injection 1-12 Units insulin lispro (HumaLOG) injection 1-12 Units 08/27/19 05:00:00 PM EST Subcutaneous active 1-1 2 Units, Subcutaneous, MEALSS, First dose on Mon08/27/19 at 1700
AVERAGE 6 Units Nutritional and Correction Insulin ScaleBlood Glucose (mg/dl) <70 start hypoglycemia protocolGlucoseEats >=50% Eats <50%Eats Nothing (mg/dl) of meal of mealor [id number] units 2 units 0 [id number]- 1706 units 3 units 0 [id number] units 4 units 1 cpeuc441- 2708 units 5 units 2 iubyx343-3729 units 6 units 3 - 75101 units 7 units 4 [id number] units 8 units 5 units>420 call MD12 units 9 units 6 unitsTest glucose within 30 minutes of insulin administration.Administer insulin within 15 minutes (before or after) of the patient starting to eat.For patients that are NPO, use theNPO (correction) scale to cover POC glucose at 08:00, 12:00, 17:00.
[facility] Medication administered onsite Hydrochlorothiazide 12.5 MG Oral Tablet hydrochlorothiazide (HYDRODIURIL) tablet 12.5 mg hydrochlorothiazide (HYDRODIURIL) tablet 12.5 mg 08/27 04:00:00 PM EST 12.5 mg Oral aborted 12.5 mg, Oral, Daily, First dose on Mon08/27/19 at 1600
Hold for SBP <120
[facility] Medication administered onsite Prednisone 10 MG Oral Tablet predniSONE (DELTASONE) ta blet 10 mg predniSONE (DELTASONE) tablet 10 mg 08/27/2019 04:00:00 PM EST 10 mg Oral aborted 10 mg, Oral, Daily, First dose on Mon08/27/19 at 1600 [facility] Medication administered onsite pantoprazole 40 MG Delayed Release Oral Tablet pantoprazole (PROTONIX) EC tablet 40 mg pantoprazole (PROTONIX) EC tablet 40 mg 08/27/2019 04:00:[address] 40 mg Oral aborted Gastroesophageal Reflux Diseas e 40 mg, Oral, Daily, Indications: Gastroesophageal Reflux Disease, First dose on Mon08/27/19 at 1600 [facility] Gastroesophageal Reflux Disease Medication administered onsite Dextromethorphan Hydrobromide 2 MG/ML / Guaifenesin 20 MG/ML Oral Solution guaifenesin-dextromethorphan (ROBITUSSIN DM) 100-10 MG/5ML syrup 5 mL guaifenesin-dextromethorphan (ROBITUSSIN DM) 100-10 MG/5ML syrup 5 mL 08/27/2019 03:47:40 PM EST 5 mL Oral active 5 mL, Oral, Every 4 hours PRN, other, cough, congestion, Starting Mon08/27/19 at 1547 [facility] Medication administered onsite hydrocortisone (CORTEF) tablet 75 mg 08/27/2019 03:00:00 PM EST 75 mg Oral completed 75 mg, Oral, Once, Mon at 1500, For 1 dose [facility] Medication administered onsite sodium chloride 0.9% (NS) infusion [id number] 08/27/2019 02:00:00 P M EST Intravenous aborted at 125 mL/hr, Intravenous, Continuous, Starting Mon08/27/19 at 1400 [facility] Medication administered onsite fluticasone (FLONASE) 50 MCG/ACT nasal spray 1 spray [id number] 08/27/2019 01:43:36 PM EST 1 {spray} Nasal active 1 spray, Nasal, Daily PRN, congestion, allergies, Starting Mon08/27/19 at 1343 [facility] Medication administered onsite Calcium Carbonate 500 MG Chewable Tablet calcium carbonate (TUMS) chewable tablet 1,500 mg calcium carbonate (TUMS) chewable tablet 1,500 mg 08/08 01:42:30 PM EST 1500 mg Oral active 1,500 mg, Oral, Daily PRN, heartburn, Starting Mon08/27/19 at 1342 [facility] Medication administered onsite Metronidazole 5 MG/ML Injectable Solution metroNIDAZOL E (FLAGYL) IVPB 500 mg metroNIDAZOLE (FLAGYL) IVPB 500 mg 08/27/2019 11:00:00 AM EST 50 0 mg Intravenous completed Perioperative Pharmacoprophylaxis 500 mg, Intravenous, Administer over 60 Minutes, call center associate to O.R., Mon08/27/19 at 1100, For 1 dose [facility] Perioperative Pharmacoprophylaxis Medication administered onsite Insulin [...] <50%Eats Nothing (mg/dl) of meal of mealor ZOH20-8616 units 1 units 0 lsoam640- 1703 units 2 units 0 zjizj678-7328 units 2 units 1 tlyyq655- 2704 units 3 units 1 -0986 units 3 units 2 ywphm858- 3705 units 4 units 2 rkciy522-8619 units 4 units 3 units>420 call MD6 units 5 units 3 unitsTest glucose within 30 minutes of insulin administration.Administer insulin within 15 minutes (before or after) of the patient starting to eat.For patients that are NPO, use theNPO (correction) scale to cover POC glucose at 08:00, 12:00, 17:00.
[facility] Medication administered onsite heparin (porcine) injection 5,000 Units 17946-104-00 08/26/19 10:00:00 PM EST 5000 U Subcutaneous active 5,000 Units , Subcutaneous, Every 8 hours (scheduled), First dose on Mon08/26/19 at 2200
If platelet count is less than 100,000 or hematocrit is less than 25, or if there is a 5 point decrease in hematocrit, do not give the dose and call physician/designee.
[facility] Medication administered onsite normal saline flush 0.9 % injection 3 mL 95739-433-03 08/26/2019 10:00:00 PM EST 3 mL Intravenous active 3 mL , Intravenous, Every 8 hours (scheduled), First dose on Mon08/26/19 at 2200
flush per protocol, D/C Main IV fluid if appropriate
[facility] Medication administered onsite Methylprednisolone 40 MG/ML Injectable S olution methylPREDNISolone sodium succinate (Solu-MEDROL) injection 40 mg methylPREDNISolone sodium succinate (Solu-MEDROL) injection 40 mg 08/26/2019 09:00:00 PM EST 40 mg I ntravenous aborted 40 mg, Intraveno us, 2 times daily, First dose on Mon08/26/19 at 2100 [facility] Medication administered onsite pantoprazole 4 MG/ML Injectable Solution pantoprazole (PROTONIX) injection 40 mg pantoprazole (PROTONIX) injection 40 mg 08/26/2019 08:00:00 PM EST 40 mg Intravenous aborted Gastroesophageal Reflux Disease 40 mg, Intravenous, Daily, Indications: Gastroesophageal Reflux Disease, First dose on Mon08/26/19 at 2000
For IV Push - Dilute with 10 mL of 0.9% NaCl and push over 2 minutes.
[facility] Gastroesophageal Reflux Disease Medication administered onsite dextrose 5 % and sodium chloride 0.9 % infusion 5895-6705-10 08/26/2019 07:00:00 PM EST Intravenous aborted at 1 25 mL/hr, Intravenous, Continuous, Starting Mon08/26/19 at 1900 [facility] Medication administered onsite ondansetron (ZOFRAN) injection 4 mg 98109-391-36 08/26/2019 06:22:2 9 PM EST 4 mg Intravenous active 4 mg, In travenous, Every 4 hours PRN, nausea, vomiting, Starting Mon08/26/19 at 1822 [facility] Medication administered onsite Morphine Sulfate (PF) injection 4 mg 6693-2937-76 08/26/2019 06:22: 01 PM EST 4 mg Intravenous aborted 4 mg, In travenous, Every 4 hours PRN, severe pain (7-10), Starting Mon08/26/19 at 1822, For 7 days
If PO pain meds are not sufficient for pain control
[facility] Medication administered onsite cefdinir 300 MG Oral Capsule cefdinir (OMNICEF) 300 MG capsule cefdinir (OMNICEF) 300 MG capsule 08/18/2019 12:00:00 AM EST 300 mg Oral aborted Take 300 mg by mouth 2 (two) times a day X 4 days [facility] Esomeprazole 40 MG Delayed Release Oral Capsule [Nexium] Nex ium 07/16/2019 12:00:00 AM EST ORAL active M [facility] ([facility]) Hydrochlorothiazide 25 MG Oral Tablet Hydrochlorothiazide 12:00:00 AM EST ORAL completed [facility] ([facility]) 40 mg 07/16/2019 12:00:00 AM EST capsule,delayed release (DR/EC) 30 TAKE ONE CAPSULE BY MOUTH EVERY DAY WHILE ON PREDNISONE TAKE ONE CAPSULE BY MOUTH EVERY DAY WHILE ON PREDNISONE SOLD: 11/06/2019 [facility] Vitamin B 12 1 MG Oral Tablet Vitamin B-12 07/16/2019 12:00:00 AM EST ORAL active [facility] ([facility]) 25 mg 07/16/2019 12:00:00 AM [...] ND 2 TABLETS AT SUPPER SOLD: 07/13/2019 [facility] 500 mg 06/05/2019 12:00:00 AM EDT [...] FOUR TIMES A DAY NEEDED SOLD: 07/13/2019 [employer] Probiotic Product (PROBIOTIC DAILY PO) Oral aborted Take by mouth [facility] Ergocalciferol 08257 UNT Oral Capsule vi tamin D, Ergocalciferol, 48430 UNITS CAPS vitamin D, Ergocalciferol, 99756 UNITS CAPS 1 {capsule} Oral aborted Take 1 capsule by mouth once a w [place] [facility] certolizumab pegol 200 MG Injection Certolizumab Pegol (CIMZIA) 2 X 200 MG KIT Certolizumab Pegol (CIMZIA) 2 X 200 MG KIT Subcutaneous aborted Inject under the skin every 30 (thirty) days [facility] Multiple Vitamin (MULTIVITAMIN) tablet 53277-692-48 1 {t bl} Oral aborted Take 1 tablet by mouth [facility] Insurance Providers Payer name Policy type / Coverage type Policy ID Covered constitution party ID Covered constitution party's relationship to ghotra Policy Ghotra Plan Information [place] 302/307 [id number] SP [id number] [facility] [id number] [facility] [id number] 0 [id number] [facility] [id number] 0 [id number] [facility] PPO POS [id number] [facility] [id number] 0 [id number] [employer]CE[employer] BCBS B [id number] S VYS EXCELLUS BCBS [id number] Adrienne VYS [id number] EXCELLUS BCBS 03 [place]BS [place] PPO 302/307 [id number] SP [id number] [employer] PPO POS [id number] [employer] HEA [id number] S [id number] ANSI-Commercial [id number] ANSI-Commercial [id number] [place] PPO 302/307 [id number] SP [id number] BS iFACETS [facility] Part B [id number] Self V [id number] [facility] [place] Commercial [id number] Self [id number] ANSI-Commercial [id number] ANSI-Commercial [id number] BS iFACETS Commercial [id number] Self [id number] [employer] [place] Commercial [id number] Self [id number] EXCELLUS BCBS PI PI MVP [id number] Adrienne [id number] MVP PREMIER EXCHANGE [id number] Adrienne [id number] BC[place] PPO 302/307 [id number] SP [id number] BS Erica Trad/MX Commercial 802 Self 802 [facility] HDHP Self L [place] HDHP BS Erica Trad/MX Commercial 802 Self 802 [employer] BCBS Health Maintenance Organization (HMO) Self MVP PREMIER EXCHANGE [id number] Adrienne [id number] [facility] [id number] SP [id number] [facility] O [id number] S [id number] [facility] O [id number] S [id number] [facility] PREMIER EXCHANGE [id number] Adrienne [id number] [facility] O [id number] S [id number] BILL [employer]ECK PHY [id number] SP [id number] [facility] HMO/PPO/POS [id number] 0 [id number] [facility]PP[facility]/POS/EPO/OTHER [id number] BCBS OF [place] 306/806 [id number] SP [id number] BCBS [place] PPO 302/307 [id number] SP [id number] BCBS [place] [id number] S [id number] BCBS HMO [place] O [id number] S [id number] Problems, Conditions, and Diagnoses Code Display Name Description Problem Type Effective Dates Data Source(s) G47.30 Sleep apnea Sleep apnea [id number] 09/01/2019 12:00:00 AM [facility] E66.9 Obesity Obesity [id number] 09/01/2019 12:00:00 AM [facility] E11.9 Diabetes Diabetes [id number] 08/26/2019 12:00:00 AM [facility] K56.609 SBO (small bowel obstruction) SBO (small bowel obstruc tion) [id number] 08/26/2019 12:00:00 AM [facility] K50.90 Crohn's disease Crohn's disease [id number] 08/26/2019 12:0 0:00 AM [facility] K50.919 Crohn's disease, unspecified, with unspe cified complications Crohn's disease, unspecified, with unspe Diagnosis 08/26/2019 04:01:00 PM [facility] K50.90 Crohn's disease, unspecified, without co mplications Crohn's disease, unspecified, without co Diagnosis 08/26/2019 04:01:00 PM [facility] K56.609 Unspecified intestinal obstr uction, unspecified as to partial versus complete obstruction Unspecified intestinal obstruction, unsp Diagnosis 08/26/2019 04:01:00 PM [facility] Surgeries/Procedures Procedure Description Date Indications Data Source(s) Bone Mineral Density Test 10/25/2019 12:00:00 AM EDT [facility] ([facility]) GLUC BLD GLUC MNTR DEV CLEARED FDA SPEC HOME USE POCT GLUCOSE Routine 09/03/2019 8:22 AM EST 09/03/2019 01:22:00 PM [facility] GLUC BLD GLUC MNTR DEV CLEARED FDA SPEC HOME USE POCT GLUCOSE Routine 09/02/2019 5:26 PM EST 09/02/2019 10:26:00 PM [facility] GLUC BLD GLUC MNTR DEV CLEARED FDA SPEC HOME USE POCT GLUCOSE Routine 09/02/2019 1:49 PM EST 09/02/2019 06:49:00 PM [facility] GLUC BLD GLUC MNTR DEV CLEARED FDA SPEC HOME USE POCT GLUCOSE Routine 09/02/2019 8:28 AM EST 09/02/2019 01:28:00 PM [facility] BLOOD COUNT COMPLETE AUTOMATED CBC Routine 09/02/2019 7:30 A M EST 09/02/2019 12:30:00 PM [facility] MAGNESIUM MAGNESIUM Routine 09/02/2019 7:30 AM EST 09/02/2019 12:30:00 PM [facility] COMPREHENSIVE METABOLIC PANEL COMPREHENSIVE METABOLIC PANEL Rou dominique 09/02/2019 7:30 AM EST 09/02/2019 12:30:00 PM [facility] GLUC BLD GLUC MNTR DEV CLEARED FDA SPEC HOME USE POCT GLUCOSE Routine 09/01/2019 5:39 PM EST 09/01/2019 10:39:00 PM [facility] GLUC BLD GLUC MNTR DEV CLEARED FDA SPEC HOME USE POCT GLUCOSE Routine 09/01/2019 10:24 AM EST 09/01/2019 03:24:00 PM EST [facility] BLOOD COUNT COMPLETE AUTOMATED CBC Routine 09/01/2019 8:25 A M EST 09/01/2019 01:25:00 PM EST [facility] MAGNESIUM MAGNESIUM Routine 09/01/2019 8:25 AM EST 09/01/2019 01:25:00 PM EST [facility] BASIC METABOLIC PANEL CALCIUM TOTAL BASIC METABOLIC PANEL Routi ne 09/01/2019 8:25 AM EST 09/01/2019 01:25:00 PM [facility] GLUC BLD GLUC MNTR DEV CLEARED FDA SPEC HOME USE POCT GLUCOSE Routine 08/31/2019 10:14 PM EST 09/01/2019 03:14:00 AM [facility] GLUC BLD GLUC MNTR DEV CLEARED FDA SPEC HOME USE POCT GLUCOSE Routine 08/31/2019 4:57 PM EST 08/31/2019 09:57:00 PM [facility] GLUC BLD GLUC MNTR DEV CLEARED FDA SPEC HOME USE POCT GLUCOSE Routine 08/31/2019 11:45 AM EST 08/31/2019 04:45:00 PM [facility] GLUC BLD GLUC MNTR DEV CLEARED FDA SPEC HOME USE POCT GLUCOSE Routine 08/31/2019 9:03 AM EST 08/31/2019 02:03:00 PM [facility] BLOOD COUNT COMPLETE AUTOMATED CBC Timed 08/31/2019 6:24 A M EST 08/31/2019 11:24:00 AM [facility] MAGNESIUM MAGNESIUM Add-On 08/31/2019 6:24 AM EST 08/31/2019 11:24:00 AM [facility] BASIC METABOLIC PANEL CALCIUM TOTAL BASIC METABOLIC PANEL Timed 08/31/2019 6:24 AM EST 08/31/2019 11:24:00 AM [facility] GLUC BLD GLUC MNTR DEV CLEARED FDA SPEC HOME USE POCT GLUCOSE Routine 08/30/2019 5:25 PM EST 08/30/2019 10:25:00 PM EST [facility] GLUC BLD GLUC MNTR DEV CLEARED FDA SPEC HOME USE POCT GLUCOSE Routine 08/30/2019 12:35 PM EST 08/30/2019 05:35:00 PM EST [facility] GLUC BLD GLUC MNTR DEV CLEARED FDA SPEC HOME USE POCT GLUCOSE Routine 08/29/2019 6:56 PM EST 08/29/2019 11:56:00 PM [facility] GLUC BLD GLUC MNTR DEV CLEARED FDA SPEC HOME USE POCT GLUCOSE Routine 08/29/2019 3:45 PM EST 08/29/2019 08:45:00 PM EST [facility] GLUC BLD GLUC MNTR DEV CLEARED FDA SPEC HOME USE POCT GLUCOSE Routine 08/29/2019 9:03 AM EST 08/29/2019 02:03:00 PM [facility] BLOOD COUNT COMPLETE AUTOMATED CBC Routine 08/29/2019 7:27 A M EST 08/29/2019 12:27:00 PM [facility] BASIC METABOLIC PANEL CALCIUM TOTAL BASIC METABOLIC PANEL Timed 08/29/2019 7:27 AM EST 08/29/2019 12:27:00 PM [facility] GLUC BLD GLUC MNTR DEV CLEARED FDA SPEC HOME USE POCT GLUCOSE Routine 08/28/2019 7:12 PM EST 08/29/2019 12:12:00 AM [facility] GLUC BLD GLUC MNTR DEV CLEARED FDA SPEC HOME USE POCT GLUCOSE Routine 08/28/2019 1:40 PM EST 08/28/2019 06:40:00 PM [facility] GLUC BLD GLUC MNTR DEV CLEARED FDA SPEC HOME USE POCT GLUCOSE Routine 08/28/2019 12:04 PM EST 08/28/2019 05:04:00 PM [facility] RESECTION, SMALL INTESTINE, LAPAROSCOPIC RESECTION, S MALL INTESTINE, LAPAROSCOPIC 08/28/2019 9:37 AM EST SMALL BOWEL OBSTRUCTION; crohn's disease 08/28/2019 02 :37:00 PM EST - 08/28/2019 05:25:00 PM [facility] GLUC BLD GLUC MNTR DEV CLEARED FDA SPEC HOME USE POCT GLUCOSE Routine 08/28/2019 8:21 AM EST 08/28/2019 01:21:00 PM [facility] BLOOD COUNT COMPLETE AUTOMATED CBC Routine 08/28/2019 6:02 A M EST 08/28/2019 11:02:00 AM EST [facility] GONADOTROPIN CHORIONIC QUALITATIVE HCG, SERUM, QUALITATIVE Rout ine 08/28/2019 6:02 AM EST 08/28/2019 11:02:00 AM [facility] BASIC METABOLIC PANEL CALCIUM TOTAL BASIC METABOLIC PANEL Routi ne 08/28/2019 6:02 AM EST 08/28/2019 11:02:00 AM EST [facility] GLUC BLD GLUC MNTR DEV CLEARED FDA SPEC HOME USE POCT GLUCOSE Routine 08/27/2019 8:31 PM EST 08/28/2019 01:31:00 AM [facility] COLECTOMY PRTL W/RMVL TERMINAL ILEUM&ILEOCOLOST 2019 12:00:00 AM EST [facility] ([facility]) GLUC BLD GLUC MNTR DEV CLEARED FDA SPEC HOME USE POCT GLUCOSE Routine 08/27/2019 5:43 PM EST 08/27/2019 10:43:00 PM [facility] ECG ROUTINE ECG W/LEAST 12 LDS TRCG ONLY W/O I&R ECG 12-LEAD Routine 08/27/2019 2:40 PM EST 08/27/2019 07:40:12 PM [facility] GLUC BLD GLUC MNTR DEV CLEARED FDA SPEC HOME USE POCT GLUCOSE Routine 08/27/2019 1:04 PM EST 08/27/2019 06:04:00 PM [facility] HEMOGLOBIN GLYCOSYLATED A1C HEMOGLOBIN A1C Add-On 08/27/2019 12:32 PM EST 08/27/2019 05:32:00 PM EST [facility] BLOOD TYPING ABO TYPE AND SCREEN Routine 08/27/2019 12:30 PM EST 08/27/2019 05:30:00 PM [facility] GLUC BLD GLUC MNTR DEV CLEARED FDA SPEC HOME USE POCT GLUCOSE Routine 08/27/2019 7:59 AM EST 08/27/2019 12:59:00 PM [facility] BLOOD COUNT COMPLETE AUTOMATED CBC Routine 08/27/2019 6:32 A M EST 08/27/2019 11:32:00 AM EST [facility] ALBUMIN SERUM PLASMA/WHOLE BLOOD ALBUMIN Add-On 08/27/2019 6:32 AM EST 08/27/2019 11:32:00 AM EST [facility] BASIC METABOLIC PANEL CALCIUM TOTAL BASIC METABOLIC PANEL Routi ne 08/27/2019 6:32 AM EST 08/27/2019 11:32:00 AM EST [facility] Results ID Date Data Source [id number] 08/16/2020 10:00:00 AM EST [facility] Name Value Range Interpretation Code Description Data Bren rce(s) Supporting Document(s) SARS coronavirus 2 RNA [Presence] in Res piratory specimen by CECE with probe detection POSITIVE [facility] This lab was ordered by [facility] a nd reported by [facility]. ID Date Data Source [id number] 08/02/2020 11:50:00 AM EST [facility] Name Value Range Interpretation Code Description Data Bren rce(s) Supporting Document(s) SARS coronavirus 2 RNA [Presence] in Res piratory specimen by CECE with probe detection [facility] This lab was ordered by [facility] a nd reported by [facility]. ID Date Data Source [id number] 05/29/2020 02:27:00 PM EDT [facility] ([facility]) Name Value Range Interpretation Code Description Data Bren rce(s) Supporting Document(s) C reactive protein [Mass/volume] in Serum or Plasma by High sensitivity method Laboratory test result 0.00-0.[address] [facility] ([facility]) ID Date Data Source [id number] 05/29/2020 02:26:00 PM EDT [facility] ([facility]) Name Value Range Interpretation Code Description Data Bren rce(s) Supporting Document(s) Hemoglobin A1c/Hemoglobin.total in Blood 9.5 % [facility] ([facility]) Lab Result Notes: Pre-Diabetes 5.7 - 6.4 % Diabetes = or > 6.5% Glucose mean value [Mass/volume] in Blood Estimated fr om glycated hemoglobin 226 mg/dL 60-[address] [facility] ([facility] ) ID Date Data Source [id number] 05/29/2020 02:26:00 PM EDT [facility] ([facility]) Name Value Range Interpretation Code Description Data Bren rce(s) Supporting Document(s) Cholesterol in HDL [Mass/volume] in Serum or Plasma 48 mg/dL 35-60 [facility] ([facility]) Cholesterol [Mass/volume] in Serum or Plasma 161 mg/dL 131-200 [facility] ([facility]) Triglyceride [Mass/volume] in Serum or Plasma 89 mg/dL 30-150 [facility] ([facility]) Cholesterol in LDL [Mass/volume] in Serum or Plasma by calcu lation 95 CALC 50-159 [facility] ([facility]) ID Date Data Source [id number] 05/29/2020 02:26:00 PM EDT [facility] ([facility]) Name Value Range Interpretation Code Description Data Bren rce(s) Supporting Document(s) Urea nitrogen [Mass/volume] in Serum or Plasma 8 mg/dL 7-18 [facility] ([facility]) Glucose [Mass/volume] in Serum or Plasma 215 mg/dL 74-99 [facility] ([facility]) 100-125 mg/dL PRE-DIABETES/FASTING >126 mg/dL DIABETES/FASTING Creatinine 0.7 mg/dL 0.6-1.3 [facility] ([facility]) Sodium [Moles/volume] in Serum or Plasma 138 meq/L 136-145 [facility] ([facility]) Carbon dioxide, total [Moles/volume] in Serum or Plasma 29 meq/L 21 -32 [facility] ([facility]) Potassium [Moles/volume] in Serum or Plasma 4.3 meq/L 3.5-5.1 [facility] ([facility]) Chloride [Moles/volume] in Serum or Plasma 102 meq/L 98-107 [facility] ([facility]) Calcium [Mass/volume] in Serum or Plasma 9.4 mg/dL 8.5-10.1 [facility] ([facility]) Total Bilirubin 2.1 mg/dL 0.2-1.0 [facility] ([facility]) NOTE: T.BILI,AST,ALT VERIFIED Alkaline phosphatase isoenzyme [Units/volume] in Serum or Pl asma 105 mg/dL 46-116 [facility] ([facility]) Aspartate aminotransferase [Enzymatic activity/volume] in Serum or Plasma 105 U/L 15-37 [facility] ([facility] Alanine aminotransferase [Enzymatic activity/volume] in Seru m or Plasma 92 U/L 12-78 [facility] ([facility]) Albumin [Mass/volume] in Serum or Plasma 3.2 g/dL 3.4-5.0 [facility] ([facility]) Proteinase 3 Ab [Units/volume] in Serum 7.0 g/dL 6.4-8.[address] [facility] ([facility]) A/G Ratio 0.84 CALC 1.00-1.[address] [facility] ([facility]) Glomerular filtration rate/1.73 sq M pre dicted among blacks [Volume Rate/Area] in Serum or Plasma by Creatinine-based formula (MDRD) Laboratory test result [facility] ([facility]) <content>CHRONIC KIDNEY DISEASE STAGING PER NKF</content>
<content></content>
<content>STAGE I & II GFR >= 60 NORMAL TO MILDLY DECREASED</content>
<content>STAGE III GFR 30-59 MODERATELY DECREASED</content>
<content>STAGE IV GFR 15-29 SEVERELY DECREASED</content>
<content>STAGE V GFR <15 VERY LITTLE GFR LEFT</content>
<content>ESRD GFR <15 ON DEPARTMENT STORE GENERAL MANAGER</content>
<content></content> Glomerular filtration rate/1.73 sq M pre dicted among non-blacks [Volume Rate/Area] in Serum or Plasma by Creatinine-based formula (MDRD) Laboratory test result [facility] ([facility] ) ID Date Data Source [id number] 05/29/2020 02:26:00 PM EDT [facility] ([facility]) Name Value Range Interpretation Code Description Data Bren rce(s) Supporting Document(s) Erythrocyte sedimentation rate by Westergren method 39 mm/hr 0-[address] [facility] ([facility]) ID Date Data Source [id number] 05/29/2020 02:26:00 PM EDT [facility] ([facility]) Name Value Range Interpretation Code Description Data Bren rce(s) Supporting Document(s) Leukocytes [#/volume] in Blood by Automated count 4.0 x10*3/UL 4.1-10 .9 [facility] ([facility]) NOTE: RESULT VERIFIED. Hemoglobin [Mass/volume] in Blood 13.8 g/dL 12.0-18.0 [facility] ([facility]) Erythrocytes [#/volume] in Blood by Automated count 3.80 x10*6/UL 4.2 0-6.30 [facility] ([facility]) MCH 36.5 pg 26.0-32.0 [facility] Hematocrit [Volume Fraction] of Blood by Automated count 40.4 % 3 7.0-51.0 [facility] ([facility]) MCV 106.3 fL 80.0-97.0 [facility]) Erythrocyte distribution width [Ratio] by Automated count 16.0 % 11.6-13.7 [facility] ([facility]) MCHC 34.3 g/dL 31.0-38.0 [facility] MPV 8.3 FL 7.8-11.0 [facility] Platelets [#/volume] in Blood by Automated count 250 x10*3/UL 140-440 [facility] ([facility]) Lymph % 35.9 % 10.0-58.5 [facility] Mid % 7.9 % 1.7-9.3 [facility] Lymph # 1.4 x10*3/UL 0.6-4.1 [facility] ([facility]) Mid # 0.4 x10*3/UL 0.1-0.6 [facility] ([facility]) Neut % 56.2 % 37.0-92.0 [facility] Neut # 2.2 x10*3/UL 2.0-7.8 [facility] ([facility]) ID Date Data Source [id number] 02/19/2020 10:45:00 AM EDT [facility] Name Value Range Interpretation Code Description Data Bren rce(s) Supporting Document(s) EGD [facility] VSYWOr9zDbZFVyKjVQKaTidMTNewZMomKBPbJ7X5WQnnAn0ZVWflhiZnVHItDl0+IBDiIY9nag2xSRWj gMy 6oQEItKeeyD2TqSGNra05YRJTuWAaUTaJcOjDdEhJ5BUEyBxT8PRZ8MmTaFfieTV3xBAP6EIBvQEzjER EfLKzgVJLkMCazTJ2zWEjiADhsZl4SHM1wq6MuSYZiRQNoKczSZOeoAKccJUUkFERwSSFrI626ifYhHi 3PwFMbZFe5LNPiEnS9QAUzZoH6GAZfPj8kNzBdi7Qk N2XxWCo3R4fKJgveN8LsQQjlQC0oCAQ7QFYsTx0EsScjYTdkTSVPD6ujYhFlHFLyENPMTj7+Pj4+DWVu UZ0olm69QYGez8HtWZg0Z1X0rBKmP3RfY4DeJQMypNMTg1irSmOeGCF8YOMhZvqkHB9DXVCwpMNcKVMq BMdbLQ9iexPsaOU9QS7FrEheLEDkCYJQFo1+Pi9QYX XjiiZdScWhUQXoU18wrZFghCMdLuovBCKBAU9+TISiBF3hdx12TJNte4MiIZk1V9zswtq7hHSlBHL1Ib BhCcDrDZWiME4vHZ3GvTZ3aNMxMM0SoPUtKK1VoBBbBI1TZ9LgDQR9Q1TnzJYlnqKxA0XpFPDkVROwv4 SwST6PC9SREMFjVJIoU6AhdM8pR1ScP7NeS6Olqrqv OVOIMv8CfUK7dNTtTXSuQ1nnmXtieUYcRWuhV0NcvBKMAQZJb33dc13qtyIoXJ7+z1BaIBAzAAo49kl6 ZVAcX/tiEAWCTjk3RNynERBnXkSJir8yD9nsCtS3JNa7OibrvIU7Y1eTuKWX1//jyqg4bdq4qh/eD+/z 8XBJrk5+k0ol4zBk2fXe0OBBNVsgFGPZkMFHQOOT39 zepGp8ZRsueWciaVdO+DMeTRACeMMgv0kM6W2Xc5LEjgYzLjS56+Kg9kvi4adk5lHu4+Lm/BtiHE2wn6 ZHQyfGwCDmfEv+lvP/PH85LAqumYhoasEYLeYOBwBFL+GkQ2REZSCaNgvTIW1iZJbVGxLso1Dbf0K7HW CPDXiFAAS+QgQiISEi/u31+djVWRHIez6F5XHSL4oP [file] Ohm0deJvnTd3s53iBy5lgNq7wSBSqB639M0wYgJazKsx4tVElxivInmkaLQf8RMvmb9oCas9xL5+PRIVATE ADVISOR+S [file] 4cYfDyvKPFsS/n0vxZEiLwEthh5O1Vxe2HDzeF2X/ovC+rInHh3HSUOsqWuNpxnp8uDrL7qsSlEJZ/Vessel Manager [file] creative services coordinator+a3EgIDMUi1A1h+NHGfZ1J+ioM+vLti7ZHNAB7H [file] INKUCaYQVLQjhWFDPVdhpXd4GOORw/eXbCDVa/JZ9Y photonics engineering technologist/9ZXG39bLCK74Hb5QvgMfxUMMpJ4jearlD2AYT7iso8hscGPjlX3atW2dXdk5ONbLMnFN/xYPaBrM [file] Jesus [file] ISg3LUWP6S7kVhH5Aps7/NVt5BYky6t8G7r/RF+[facility] [file] rBjkIu/BmN6nu0ZVJAKKb8PBSN0S/YgIGV6AAg5nc+button breaker operator+bF6Fudq/J1ASufiKysk37q13D+wwa7lksx5 [file] vAbuGpAQwxrAHf3nEqgemVG4E1K0uwG6Dp43K6HJuiY6fibEgDGjykhzIuTEFyI91e7mdgcZ5Ey/Heather mVKnH/scdIfUSYD+Xmab3BY0Z6EtwoWnhIv/iQRIqF ep3szSN0kkvPRw4VzpWTH2OzovTA2T/DE JESUS+5i8JsxYWY7ndVjkaQ5pq9NAkM/hitxq/pW8IwkOGlsUC1e [file] W/pL2YGtW0LS+GGBVPsNZsgGpD3FoxK4M/yxgMaPauEnifeyCWvM8sGNs2b1o/2dd7k+Juan J+bo0qsSM2 [file] 5O2QfkuTT1Hexri94wmN1vg7Gbs4aKUWKoxH1DHT4GU/aDLdI2ck7PtUNmT4Y1r+PX2NDMabeo00/[facility] [file] NcUQmoRowf+xRLHMeE3/hIMCdifCXhZjhO8bpwz51LMoPEUR2J5lRncYts/heating worker+YKRlFoBAUmYDKOckhE [file] AGSGoKWd7NST3wc2WbYGLcHPslbqKgZvzATFdlyBOrkAyiLAMFPoI0XGTbRm5XTHDAZ9A= ID Date Data Source [id number] 02/14/2020 10:45:00 AM EDT [facility] Name Value Range Interpretation Code Description Data Bren rce(s) Supporting Document(s) SARS-COV-2 RNA RESP QL CECE+PROBE [facility] This lab was ordered by [facility] and reported by [facility]. ID Date Data Source [id number] 02/20/2020 10:17:00 AM EDT [facility] FASTING: UNKNOWNReceived: 02/15/2020 at 06:27:00 QPT: [facility]- [place], [address], [address] [place], [address], Tommy Conner MD Name Value Range Interpretation Code Description Data Bren rce(s) Supporting Document(s) SARS CoV 2 RNA NOT DETECTED Normal (applies to non-numeric results) [facility] A Not Detected (negative) test result fo [...] findings,re- testing should be considered in [facility]. Laboratory test results shouldalways be considered in the context of clinicalobservations and epidemiological data in making a finaldiagnosis and patient management decisions.Please review the "Fact Sheets" and FDA authorizedlabeling available for health care providers andpatients using the following websites:https://www.[employer].com/home/Covid-19/HCP/NAAT/fact-qahvz2hcatf://www.[email or web address]/home /Covid-19/Patients/NAAT/fact-gwwgc3Iiqv test has been authorized by the FDA under anEmergency Use Authorization (EUA) for use by authorizedlaboratories.Due to the current public health emergency, [facility] is receiving a high volume of samples [...] about COVID-19 can be foun luda the [facility] [employer] [facility] website:[email or web address]. Your request to have a duplicate copy faxed has been acknowledged. Queued to: [id number] ID Date Data Source [id number] 01/27/2020 03:55:00 PM EDT [facility] ([facility]) Name Value Range Interpretation Code Description Data Bren rce(s) Supporting Document(s) Choriogonadotropin.beta subunit [Moles/volume] in Seru m or Plasma Laboratory test result [facility] ([facility] ) GESTATIONAL AGE APPROXIMATE HCG RANGE [...] monitoring the treatment of cancer patients. Siemens Bedias methodology. ID Date Data Source [id number] 01/24/2020 12:00:00 AM EDT [facility] Grant Tucker MD [facility] Date of Exam: 01/24/2020ROCIO Calderon [id number]#: Fax: [phone] EXAM: US ABDOMEN, LIMITED SINGLE [...] choledocholithiasis does not rule itoutAccredited by the [employer] in General Ultrasound.DEBORA Dinh/Hosea cornelius for referring ULYSSES SHEFFIELD to our office.Electronically Signed - NAIN LUNA DO 01/24/20 17:09 Name Value Range Interpretation Code Description Data Bren rce(s) Supporting Document(s) ID Date Data Source [id number] 01/23/2020 10:06:00 AM EDT [facility] ([facility]) Name Value Range Interpretation Code Description Data Bren rce(s) Supporting Document(s) Lipoprotein lipase [Enzymatic activity/volume] in Serum or P lasma 600 U/L 73-393 [facility] ([facility]) Amylase [Enzymatic activity/volume] in Serum or Plasma 70 U/L 25- 115 [facility] ([facility]) ID Date Data Source [id number] 01/23/2020 10:06:00 AM EDT [facility] ([facility] Name Value Range Interpretation Code Description Data Bren rce(s) Supporting Document(s) Blood Urea Nitrogen 5 mg/dL 7-18 [facility] ([facility]) Glucose, Fasting 297 mg/dL 70-100 [facility] ([facility]) Creatinine For GFR 0.54 mg/dL 0.55-1.30 [facility] ([facility]) Sodium Level 138 meq/L 136-145 [facility] ([facility]) Glomerular Filtration Rate Laboratory test result [facility] ([facility]) <content>Units are mL/min/1.73 m2</content>
<content></content>
<content>Chronic Kidney Disease Staging per NKF:</content>
<content></content>
<content>Stage I & II GFR >=60 Normal to Mildly Decreased</content>
<content>Stage III GFR 30-59 Moderately Decreased</content>
<content>Stage IV GFR 15-29 Severely Decreased</content>
<content>Stage V GFR <15 Very Little GFR Left</content>
<content>ESRD GFR <15 on DEPARTMENT STORE GENERAL MANAGER</content>
<content></content> Potassium Serum 4.4 meq/L 3.5-5.1 [facility] ([facility]) Carbon Dioxide Level 26 meq/L 21-32 [facility] ([facility]) Chloride Level 105 meq/L 98-107 [facility] ([facility]) Anion Gap 7 meq/L 8-16 [facility]) Ast/Sgot 61 U/L 7-37 [facility] ([facility]) Calcium Level 8.8 mg/dL 8.5-10.1 [facility] ([facility]) Alt/SGPT 58 U/L 12-78 [facility] ([facility]) Alkaline Phosphatase 88 U/L 45-117 [facility] ([facility]) Bilirubin,Total 1.2 mg/dL 0.2-1.0 [facility] ([facility]) Total Protein 6.2 GM/DL 6.4-8.2 [facility] ([facility]) Albumin 2.9 GM/DL 3.2-5.2 [facility] ([facility]) Albumin/Globulin Ratio 0.9 1.2-2.2 [facility] ([facility]) ID Date Data Source [id number] 01/17/2020 02:13:00 PM EDT [facility] ([facility]) Name Value Range Interpretation Code Description Data Bren rce(s) Supporting Document(s) Lipoprotein lipase [Enzymatic activity/volume] in Serum or P lasma 452 U/L 73-393 [facility] ([facility]) Amylase [Enzymatic activity/volume] in Serum or Plasma 52 U/L 25- 115 [facility] ([facility]) ID Date Data Source [id number] 01/17/2020 02:13:00 PM EDT [facility] ([facility]) Name Value Range Interpretation Code Description Data Bren rce(s) Supporting Document(s) Blood Urea Nitrogen 8 mg/dL 7-18 [facility] ([facility]) Glucose, Fasting 272 mg/dL 70-100 [facility] ([facility]) Creatinine For GFR 0.78 mg/dL 0.55-1.30 [facility] ([facility]) Glomerular Filtration Rate Laboratory test result [facility] ([facility]) <content>Units are mL/min/1.73 m2</content>
<content></content>
<content>Chronic Kidney Disease Staging per NKF:</content>
<content></content>
<content>Stage I & II GFR >=60 Normal to Mildly Decreased</content>
<content>Stage III GFR 30-59 Moderately Decreased</content>
<content>Stage IV GFR 15-29 Severely Decreased</content>
<content>Stage V GFR <15 Very Little GFR Left</content>
<content>ESRD GFR <15 on DEPARTMENT STORE GENERAL MANAGER</content>
<content></content> Sodium Level 139 meq/L 136-145 [facility] ([facility]) Potassium Serum 4.3 meq/L 3.5-5.1 [facility] ([facility]) Carbon Dioxide Level 29 meq/L 21-32 [facility] ([facility]) Chloride Level 100 meq/L 98-107 [facility] ([facility]) Calcium Level 8.8 mg/dL 8.5-10.1 [facility] ([facility]) Anion Gap 10 meq/L 8-16 [facility]) Ast/Sgot 81 U/L 7-37 [facility]) Alt/SGPT 79 U/L 12-78 [facility] ([place] [facility]) Bilirubin,Total 1.5 mg/dL 0.2-1.0 [facility] ([facility]) Alkaline Phosphatase 90 U/L 45-117 [facility] ([facility]) Albumin 2.9 GM/DL 3.2-5.2 [facility] ([facility] [facility]) Total Protein 6.4 GM/DL 6.4-8.2 [facility] ([facility]) Albumin/Globulin Ratio 0.8 1.2-2.2 [facility] ([facility]) ID Date Data Source [id number] 11/22/2019 02:55:00 PM EDT [facility] ([facility]) Name Value Range Interpretation Code Description Data Bren rce(s) Supporting Document(s) Erythrocyte sedimentation rate by Westergren method 51 mm/hr 0-20 [facility] ([facility]) C reactive protein [Mass/volume] in Serum or Plasma by High sensitivity method Laboratory test result 0.00-0.30 [facility] ([facility]) ID Date Data Source [id number] 11/22/2019 02:54:00 PM EDT [facility] ([facility]) Name Value Range Interpretation Code Description Data Bren rce(s) Supporting Document(s) Urine Creatinine 236.6 mg/dL 30.0-125.0 [facility] ([facility]) Microalbumin Urine 2435.7 mg/L 1.3-20.0 [facility] ([facility]) Microalb/Creat Ratio 1029.5 ug/mg 0.0-30.0 [facility] ([facility]) ID Date Data Source [id number] 11/22/2019 02:54:00 PM EDT [facility] ([facility]) Name Value Range Interpretation Code Description Data Bren rce(s) Supporting Document(s) Thyrotropin [Units/volume] in Serum or Plasma by Detec tion limit <= 0.05 mIU/L 2.25 uIU/mL 0.36-3.74 [facility] ([facility] ) ID Date Data Source [id number] 11/22/2019 02:54:00 PM EDT [facility] ([facility]) Name Value Range Interpretation Code Description Data Bren rce(s) Supporting Document(s) Glucose [Mass/volume] in Serum or Plasma 268 mg/dL 74-99 [facility] ([facility]) 100-125 mg/dL PRE-DIABETES/FASTING >126 mg/dL DIABETES/FASTING Urea nitrogen [Mass/volume] in Serum or Plasma 7 mg/dL 7-18 [facility] ([facility]) Creatinine 0.7 mg/dL 0.6-1.3 [facility] ([facility]) Sodium [Moles/volume] in Serum or Plasma 141 meq/L 136-145 [facility] ([facility]) Chloride [Moles/volume] in Serum or Plasma 103 meq/L 98-107 [facility] ([facility]) Potassium [Moles/volume] in Serum or Plasma 3.6 meq/L 3.5-5.1 [facility] ([facility]) Calcium [Mass/volume] in Serum or Plasma 9.0 mg/dL 8.5-10.1 [facility] ([facility]) Alkaline phosphatase isoenzyme [Units/volume] in Serum or Pl asma 69 mg/dL 46-116 [facility] ([facility]) Carbon dioxide, total [Moles/volume] in Serum or Plasma 30 meq/L 21 -32 [facility] ([facility]) Total Bilirubin 0.9 mg/dL 0.2-1.0 [facility] ([facility]) Aspartate aminotransferase [Enzymatic activity/volume] in Serum or Plasma 51 U/L 15-37 [facility] ([facility] ) Alanine aminotransferase [Enzymatic activity/volume] in Seru m or Plasma 50 U/L 12-78 [facility] ([facility]) Albumin [Mass/volume] in Serum or Plasma 3.0 g/dL 3.4-5.0 [facility] ([facility]) Glomerular filtration rate/1.73 sq M pre dicted among non-blacks [Volume Rate/Area] in Serum or Plasma by Creatinine-based formula (MDRD) Laboratory test result [facility] ([facility] ) A/G Ratio 0.75 CALC 1.00-1.90 [facility] ([facility]) Proteinase 3 Ab [Units/volume] in Serum 7.0 g/dL 6.4-8.[address] [facility] ([facility]) Glomerular filtration rate/1.73 sq M pre dicted among blacks [Volume Rate/Area] in Serum or Plasma by Creatinine-based formula (MDRD) Laboratory test result [facility] ([facility]) <content>CHRONIC KIDNEY DISEASE STAGING PER NKF</content>
<content></content>
<content>STAGE I & II GFR >= 60 NORMAL TO MILDLY DECREASED</content>
<content>STAGE III GFR 30-59 MODERATELY DECREASED</content>
<content>STAGE IV GFR 15-29 SEVERELY DECREASED</content>
<content>STAGE V GFR <15 VERY LITTLE GFR LEFT</content>
<content>ESRD GFR <15 ON DEPARTMENT STORE GENERAL MANAGER</content>
<content></content> ID Date Data Source [id number] 11/22/2019 02:54:00 PM EDT [facility] ([facility]) Name Value Range Interpretation Code Description Data Bren rce(s) Supporting Document(s) Hemoglobin A1c/Hemoglobin.total in Blood 8.0 g/dL 4.8-5.[address] [facility] ([facility]) Lab Result Notes: Pre-Diabetes 5.7 - 6.4 % Diabetes = or > 6.5% Glucose mean value [Mass/volume] in Blood Estimated fr om glycated hemoglobin 183 mg/dL 60-[address] [facility] ([facility] ) ID Date Data Source [id number] 11/22/2019 02:54:00 PM EDT [facility]) Name Value Range Interpretation Code Description Data Bren rce(s) Supporting Document(s) Erythrocytes [#/volume] in Blood by Automated count 3.69 x10*6/UL 4.2 0-6.[address] [facility] ([facility]) Leukocytes [#/volume] in Blood by Automated count 5.7 x10*3/UL 4.1-10 .[address] [facility] ([facility]) Hemoglobin [Mass/volume] in Blood 12.0 g/dL 12.0-18.[address] [facility] ([facility]) MCH 32.6 pg 26.0-32.0 [facility] ([facility]) MCHC 33.8 g/dL 31.0-38.0 [facility] ([facility]) Hematocrit [Volume Fraction] of Blood by Automated count 35.6 % 3 7.0-51.0 [facility] ([facility]) MCV 96.3 fL 80.0-97.0 [facility] ([facility]) Platelets [#/volume] in Blood by Automated count 263 x10*3/UL 140-440 [facility] ([facility]) Erythrocyte distribution width [Ratio] by Automated count 16.3 % 11.6-13.7 [facility] ([facility]) MPV 7.0 FL 7.8-11.0 [facility] ([facility]) Mid % 7.6 % 1.7-9.3 [facility] ([facility]) Neut % 63.9 % 37.0-92.0 [facility] ([facility]) Lymph # 1.6 x10*3/UL 0.6-4.1 [facility] ([facility]) Lymph % 28.5 % 10.0-58.5 [facility] ([facility]) Mid # 0.5 x10*3/UL 0.1-0.6 [facility] ([facility]) Neut # 3.6 x10*3/UL 2.0-7.8 [facility] ([facility]) ID Date Data Source [id number] 10/21/2019 01:11:00 PM EDT [facility] ([facility]) Name Value Range Interpretation Code Description Data Bren rce(s) Supporting Document(s) Laboratory test finding (navigational concept) Laboratory test result [facility] ([facility]) SEE SEPARATE REPORT Testing performed at reference lab . Report copy to follow on a separate form. 10/29/19 REF LAB#:[id number] ID Date Data Source [id number] 10/21/2019 01:11:00 PM EDT [facility] ([facility]) Name Value Range Interpretation Code Description Data Bren rce(s) Supporting Document(s) C reactive protein [Mass/volume] in Serum or Plasma by High sensitivity method Laboratory test result 0.00-0.[address] [facility] ([facility]) ID Date Data Source [id number] 10/21/2019 01:11:00 PM EDT [facility] ([facility]) Name Value Range Interpretation Code Description Data Bren rce(s) Supporting Document(s) Glucose, Fasting 203 mg/dL 70-100 [facility] ([facility]) Blood Urea Nitrogen 10 mg/dL 7-18 [facility] ([facility]) Sodium Level 139 meq/L 136-145 [facility] ([facility]) Glomerular Filtration Rate Laboratory test result [facility] ([facility]) <content>Units are mL/min/1.73 m2</content>
<content></content>
<content>Chronic Kidney Disease Staging per NKF:</content>
<content></content>
<content>Stage I & II GFR >=60 Normal to Mildly Decreased</content>
<content>Stage III GFR 30- 59 Moderately Decreased</content>
<content>Stage IV GFR 15-29 Severely Decreased</content>
<content>Stage V GFR <15 Very Little GFR Left</content>
<content>ESRD GFR <15 on DEPARTMENT STORE GENERAL MANAGER</content>
<content></content> Creatinine For GFR 0.56 mg/dL 0.55-1.30 [facility] ([facility]) Carbon Dioxide Level 27 meq/L 21-32 [facility] ([facility]) Chloride Level 105 meq/L 98-107 [facility] ([facility]) Potassium Serum 3.9 meq/L 3.5-5.1 [facility] ([facility]) Anion Gap 7 meq/L 8-16 [facility] ([place] [facility]) Calcium Level 9.3 mg/dL 8.5-10.1 [facility] ([facility]) Alt/SGPT 52 U/L 12-78 [facility] Ast/Sgot 39 U/L 7-37 [facility] [facility]) Bilirubin,Total 0.9 mg/dL 0.2-1.0 [facility] Total Protein 7.2 GM/DL 6.4-8.2 [facility] ([facility]) Alkaline Phosphatase 56 U/L 45-117 [facility] Albumin/Globulin Ratio 0.89 1.00-1.93 [facility] ([facility]) Albumin 3.4 GM/DL 3.2-5.2 [facility]) ID Date Data Source [id number] 10/21/2019 01:11:00 PM EDT [facility] ([facility]) Name Value Range Interpretation Code Description Data Bren rce(s) Supporting Document(s) White Blood Count 5.2 10 4.0-10.0 [facility] Red Blood Count 3.51 10 4.00-5.40 [facility] ([facility]) Hemoglobin 11.5 g/dL 12.0-15.5 [facility] [facility]) Hematocrit 36.0 % 36.0-47.0 [facility]) Mean Corpuscular Volume 102.6 fl 80.0-96.0 [facility] ([facility]) Mean Corpuscular Hemoglobin 32.8 pg 27.0-33.0 [facility] ([facility]) Red Cell Distribution Width 17.2 % 11.5-14.5 [facility] ([facility]) Platelet Count, Automated 315 10 150-450 [facility] ([facility]) Mean Corpuscular HGB Conc 31.9 g/dL 32.0-36.5 [facility] ([facility]) Nucleated Red Blood Cell % 0.0 % 0-0 [facility] ([facility]) ID Date Data Source [id number] 10/18/2019 03:00:00 PM EDT [facility] Name Value Range Interpretation Code Description Data Bren rce(s) Supporting Document(s) Follow Up [facility] XQCRLx8pRdRHCyVhVRTpQjqMBPlzKElkOCQsT8P9QQxhFy0RNUnfsiArLIFvJh0+ZGYmNR8jqv7uATXz gMy [file] Jesus [file] ZnoLg995D4Bzt9sA7rDaPgU1Y29+vl4mehJiqu/Jose Alberto [file] Kvcd8mjmr0hawuYMHu7T1lH8/fXGqo/RYzWbJ8M84omAgtp7mX2g0+gliding pilot instructor+fZjllAcWVOu213KZYSc+yG [file] Devils Elbow+bNGXmXsTdmmwF7Z8jcq9KIhER9p7PiZxesFkKQ8XNNF7UqNf9FfE4Q7ggbsAg1nrpMHihDoQp6M8 DM1hn7SWw9Jk8ul29PZDXSnzlm0WaJqIFfe5wCPHog p5iwHMb4WJhwScFhn8Rby5nKBd8Ju48/pEX0b4chWROoREF2gU3BIJcbrIj3S5plledlCPzDXRWiPHyf JIHehZIw+wMkS5/I5dA4hqtSIx0b2SPUR1Btbmq0d3+t7lrvsgZEcZ1ZGgDkFrYSmaNoJWxtPLq1Wdk8 u2L0xD/4Ee+IVoDy2xW4Nld1NgEfBWjPs/MARSHA/rsaK [file] Jesus [file] 4Ycv3+9+De Jesus+9qq9bA95Cx91hff2+/3U9Y5+3dqm4dZNnc4W9okKdbA8dKi/u4ttknWoueRslItJspyIo [file] Vessel Manager/Nsf6toGdyz8Vwj5Z9dcCF1KGAVrJAOCwe3AVs9m24m5M8bb/9kCG3AAm/RYlsVC4ynq5a45D9wiTw [file] vX0Etg9xpw8TDNen+DE JESUS/jegxxQ6nMR1iylivqVEU1i [file] Pr/fSOr29kz8EjXjfNW0w+SjXyxCJr2QXOQPHq6/Vessel Manager [file] vztvLuUc4N6/81/DE JESUS/ECzzVKli05QkA/D5GEwXtnNg7AqUqr0cdH5lOoyJ6n4KzS4fXUb/oMS58jCNMt [file] mNWAbK2Z3+DE JESUS/0XY/+dEC7OU6fyu746e2sg55Ys1/ELwMR6TJ+/2FyhGp6btVzrWeprniylRcBIrYCAs [file] mirror fabrication supervisor/gVhS3VqEpVuHgIU9wIa0Ygn21xEYN9Xlrr/WF [file] 7E+hty1Yt7nEAWeL1bnAEG280/rental car deliverer+ZDUFcGjTw3i9mda69H926ZLrBFGxKvS69aWq9D/ZvQ48yEOOTD [file] kBeVQmC/A/music ministries director+jCApKfThPDWOLVbwNc/znhZc6mhGgi6SeRod/irOW1eEJNcBxCUDHwG+mPtj5R8pZ9 [file] Gas Reverser/JFmEh6cdKqxka2u/edEfl77QqFrTzOzXpd1bylA [file] De Jesus+YrlphBybkHMZmDeJvhw7iYgJYI8GXXPac5gKiEqVWNMJprlb/C+lA1SWdtbigeOr06Br+pCuBvtjU [file] 1SNAbNIg+FY+qa developer+Vfd+FHIt0sJ/NNzSIBr7aGR5NLwjiocN+cVWdCE76/kwIrTYb/QpnqGcCXoN0V2/ [file] QS3Q6fuqmV6FhVUe2KXhJ5aoWjznin31nnhhkgcziX DE JESUS/6d9NqI7L71eT/ns7ZmFFCMzHdj5WgCZZ5g0Pp+gCcgbOdZLRbVk2DeT02GbgAfCTi/Y8NxOugGs6N 3wRm4+40rwjbThLUmtg9sMNBDECHHZ+pQ7WLeyb6eetFBmwgScYVUkswT9ZV9dMPzFD3ZAIhRl3zLlqz OZlVXixNtSdzb8mi5pgnAZdBaz+5Cflk89aTZymBFN IcRl1L/+I42vzHi1ndxR1mecKODrXCeUMUQSL3BgYqmZX0a3sN8s82hUpv/LhLwTflyLHndYn0Tc+5Rk QMcZIpa/YmskgOEME00jB4i6b8rsP/jt+c3drtnnGj1zi4PxHBFbRO6oC+zqG6K06q0a5whuuy6nFwdW NtcDw+tXZhELVgjQI8n6wPrR77VTg8crV8GMcnb43P gRnImRfEUyNZAfYqvmdpWFfWkHl8txSbJzF+upcZE7lwRIWMXYQbGHw5DxCX7iCEBQqHOJHXqyHrRze+ 5MyRGnxppc1sS4OiAVXJzf6/XNExMw5IMlJTi+yZWUz++QB0AIuEe54Czxp+pzOcXqF1pYR5z0e3n9/d Cmzj6QdrLaH9lXz+Y0rkkJ3Wbcanm2Etq7b0rg+/CROATIAN [file] ol/ZNMeLlS8A9BbfjTvJW5gofRs4ypciSFup7s/valentín [file] 8EfXaSkV9ibkcj7J3xs9iXx7cExODXAdoqYQSgp781tfXrRckfvNv4flK+ie3DrlYcrkrybzbAhEH+heating worker Syusvita4+qdD90PpMS07BTkG8poU0w25GCGuX5hh9kSZob6aKgxrO6v2ekQif6DByQk8IZlPr9rPwmv G97qwGwuYSpGx5rkDktJEAHAcfvDSQEjF651+BpCzG XMmaMZO168+PXfVmL9N7tqgDFPwJCnYBhSfIZyvtl0uMEHXByU7JGN6jnzpwvAnKNbUbjou9v5cmsBTN m+K7L1t2asV59BcfhR6aBPR2YPImbdQd3kSv3FsXa4wUCUhdFzQAJlRq361a4vDQhLFwvSD5D7YrnOQ2 JL++jb0A5TkQTZ/WZ6f2jLOJ/LL4vWTcoesbdUor3e 9cffz00qiV9tpSgLPRPwqWv6vuforBX+Wuh72NVo80qek2+t4M8ade1Dg382N/CHIv0oTaVN/DrDog9W y4bg+5GTzqb/gX0B9G5xw3oCYNOVWAWMk9J4U0Cw2b1JDVHMfLK+TJTd1fgt/EEGx7+ZhJfLdkF9MhhR nvhTqZDxd0ll06dj4Ry3rTU106dJoMguphZ442vohK CVr1/EkcsaCmx7RjGCB6ShbLhMZvle9cJ0bNgiLAoVrn+DXlGOPFAemWoL09LPUrQKs7y9Ioy2ifNWlu x/8T8TUczo3eJade6LwTQNmX1gEvwQs700qMYRvvNHt8wG4tqsJtKlz+SLD4IBStZdZ/oBtt85FK+Lorena [file] quality engineering manager/c9U0ZNHAxzi+1mLgmeOrL+5Cr8ZCTquRypStmyiR70vZSYv2Pb+If3oz1GenE9vF5g+6TYp0nGFr [file] ttU6LnjENhdP4/De Jesus+vfjBtpbQLbwNreA1Kdd06hPpKqha65LQ3urZPLQYgmCCcWmhJtWWzcPgQycIiXi [file] oXqzVG5ge7DblSNQnN9YMbcmxhEg4tR3lkaI/SwcOO1blUbL2jpFISGb+doT9gS+1BKvointIsVI+geographic analyst [file] 92EGjoltjlehMxel/ogjPlEUGssojg6hfHhA7HnDIvFkPNbUN18EB+XjvnwlbIgxxBSvMdl+mason tender restoration labor/oYOa [file] waiKuOO73QIysdYwZocnBRRSNjvFo0FpkPzIbY/conductor yard YXweapf11e5TE9tuZJPfEKl020bMlKBNW9eQfBfug2OAUP5G9zbargPkKtHqX+yNuHlXqnDFxeNvbjKq AT77nVkupka/ynNdV2SEogfc6Ie0vui9od2n0yJYY57MVIaF9Gl/a53gzkrwh/K8GhcVQChBAH6wd6Gd EO3hS8dCqAcnuwVTeKmHJyGnRkZ9STfgZVK0nxcTQw fR2W6D82IOaPlOpqfkl+Zph2acOCbIYWdo5QhEee03JTry5b7o8ka745sAtPAToj09A1sNgxil31TLhy UCtuwaA1eqWSLH9m1UMhjcoeD+mnjGa/kkbsWXx0K6vEhLrMVt17G9Xh3eOgUJGZsusCWeECB9bhZnyl Kj6y+tCI70sYElDHpxmPls3CV6c35GqwYdTS67g2et zyenFZSd0Bl0AAtV+eqRsfsQ/yeDRQ/HQJa/b/Iz13XH7XHSjcwMyl4iyACOvoyNzIwND2k7pZfWduN8 pvZ2voo/1Is50OaRJfcaEdA9n/ZowDMkfxLKfhkLGfL4nXc9oGW2U289Rz+3KtFy0+BJUCUPpC3IEHIQ LaspD0h0keP2dfeP9oxmipA35iYA6hMFxKH1GvUcIY QMlpI8ZpjvBlZ2uOD/OyPvetRM18EjVJAR7eqo8rdLAUYxDSXlZYlo9yHU0OPTy7Mn5q+9kjGPAIulQg iC+gd3wY0jgnd7ndCplnUB/KmtPsSzwfQHXJkdmnrxINa9nqwWeNu8mIt7jAZ1l+LWsNGlpK1rZ7HeaX ftQTc+vUSeb1lyYlkJYSyofILQ4X8gn42gle4/fIQF 6MXjkXezT98LzXKLHVgBrStZlYLx+7CRMqUdjJEbfzUCJP+xEX/unbS97NIEyXwjQXKDYQqGIrTpaP95 BYrtxVmDGi7INpOpTZeidB5ae48DYRAsQ/nCsoO/C1pG5dyEXzgNKFo0s5FEuT8AFs5Yp6HoeygakJqk xaUlPtfJsAaPQjctbgnKHsIcWUaWxkQHNWSVUYTtPs [file] svp monetization/9nPdSh1U0Uyu2lRrh0hANVYrsdtgW7+eVcnb7kMiHzFgRNuhrNoq22CD9wj70boPao8NKBybKE7cl [file] AbIsBF4wnd+qOqw7DaNzZ/rrnpYk/C[employer] BAGGER+TcVpdYRjgYND/a6y6K76HojSUUCWVpHRaHupRB6f+/kyfJ5 [file] uINZethctB3M0tOvZ1VNPbz1wiKdqyg/0zQNd0sztA91148GdSXBDR/control cabinet assembler+b5H1zmJ1LyXsbgeCwr4bu [file] Beverly/myTnB6YL49DLZWnDiIuYevHtfG9iwB7JpspiE7MZvCSIwZC4EkDZHA4sUemxDKPA2a9eVh0miBtK zi1F73jxsKCwH9fgPOeleSUXi13h3KVte0UTin9rSG 1uPfiHjHHpSMT478W0Zg4N4IDli5kuYvGig+3eFUN0/AhRGkz4W7ftjiOn46+fcoFNkZA39jkQX4lpAG OynKqdf+QtBP3MuT29tjXsg3Oeors+O28JmBxhvGHoQol/2aJ4//1tyw9OXCvUzNswXqCP3sC9Jt0Nql gTjFSiv8LVyYBwaGQcgotD1pZd3gOehlaT72cWpuuP jG/uSqOgq4l4oDldydZl6iTqxTMKtIjZTove/Y45xOsxfjbgAJjpj82g5iKGj6cQIBPkop7BiTkzXut/ Fn1xjDYjxn2uAVyM130pd/paQiOtS87AdzpOKgKCI84++fHbyMOWxHtaes/8anrk+1KIsAk33XMuw+cT hHnSRFzb4K0X1++JOSE M/q2zq8D7tmJ/b9Aqc+u1f/eP [file] +RtLAt4k14fCaZHkBDssWr6BAq44N5hzVfVKunXfYPVQO3hqfyHgiYTvZnwSHM8a+i45NLEz9z1M1+PRIVATE ADVISOR VD8XbLhHakuMWZrGR8uvADqj74OYEfe5qhb4/wQojk lI+0xTlnnRI1uNl9wD4XNzxYew9MGlUWgGj8TgfFnkxdIuOQdDUTUG14OOTgqQouXrLo5+wOSTtzFZQ2 2JbVdpzHhSBDT6bXuIQUze3w1zMZTf2BQitNcLL+XcprtDkuCBTiorOlo2Yc4LdMdrP9Xu2nj3Iu0w3C w+SZGe+oDdYUzVViitobWr24xFTfwGhwOIdeIWhBqe 7b/2us5j/jWcgkdpaY0IOOBqJIuaXT+RS6Xw1lrxUbrLc7cPGSh+crD2CUPsEbq80EM5e/hT+qXkcyDB GDeGudlhbSxedPbq2/Mh0ZLAtzl8wIAz64ie3zMLdBuffoVw8Q7uTZWvpzcSS9PokGSnCOezui+LCamK wln9IwEkBBbFHApU+jHYsqOvguDt/kOUGaFAu+fhHW 9pee4qIUHcIq/DaMpYlhu25BWpynAAG5xr3CyvKR0Hf4DOrHdsgu65FMJ5xmSJ8TgFNeH0nfFgLbPc0i J2/tdZTxgwbISavI4s/CV0ygn7IB4SbRbjtByfueHOW5K2KDDgPoWBZYgf0ZVC98I94K2q7zvTLkFf4h atEW+k7zyiwcKmQul76KSNN+Dcdc22Wfq1UqI9uI2V dY19CSh6KbduB221oRwGcJrFDqfdUamnqSTZkztr3tIufdgVl/2Ji0qZFOSFxUSLwoNX95shHjzofVOr AIsjftviFAmVtWlIf+b1EvtdKPbIj1THS/TsSW6XZ+Qj6TYeC4StwrtSTR915kIpXmSEm5ggtEYXjW9j lBamtWkSt4fdpW6G4X1aFDo1NUOs2KLXXpVjyiOu/0 1e8ZxBG27R3XpX8mqX/yLp981vZJOJolN1k1P1ytgmtRZM4F5OGOF9KuYvC393TCxB1FO5K+BGKp+qwN cms/QniABfnw4LXP737IuonmnBoWvboyZZLBXpOyoOddoRdXeBqlINH2oermfRjHGPhf5ENeJbRLEEx3 +/u+SH8EMkraPYu0MI0VVpYbwUBInK1ixxyaLu69Ue DFik8yyGFMPwfRszIhcqisg1ViF3Va85XlPZGU/Gso5YoO8LKGr3EuIfPQhPZQzun+htYoymyP4jKEY2 US4qO9XTVChC3yWzjf7+/IrfAPsuqWSUXWwduu7z2l8mmx55hMf3yU3SnGSE4emnvHVQ9oMARpTfmW9k lc4vy/e4Q6UKs+z0z4e/yih5jh6Kh8BRrnIsBjEHu+ a5EfhMLruwS4UGFthgKxB44LoPy2NTgGuKUXjq6VDYQJ2qJ0M0+np0f26FvQAkM4Q+elguL1CJ5z+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 [file] 7Rz+svp monetization/icd/B5FZHrQjsS+NcnjNOqR04f31hfLk029 [file] JYbPmYPWJz1e5LI1FcT9JedvJY6VSGiFsA7+RIVSPmxe2L7a3l9f5eeG61uxVgy/svp monetization+Ys6wCi/0Urvd7 [file] ayesMVytfSsTK1t/8cgmMPltCCvqsGtk3iJMh8kbrJAXJEY+nenU4UB5dQF7WIyQxwM2vkP+FUR PULLER/Ybo6R [file] nEYNSnFd8KnLTVlZIjIuXFsU/0CsZDv9a35KrulmmUfZDd7fZQRof6K6c/jPJ80Iow+d9GD3WBfjg/Vessel Manager [file] Zfo4TzQ4VJOYHVDXRUB1JE5fJJEDGRQIOkyIDmGLAV lFDQY4VIcdCYp2RqUJT8U6GQNoGl9yBd0aeHAzYZKmBu3HoeUcVIXtLIBVM5HpvaWqJuUvFZdmAGYvFM VhZj6JGFagFMOrAE7+WvD6qsFynF9VeYxdLGPjtYBuEVIsEYUKCG5LjSi8RVGHCGWraRJTXb+AyLsyQJ KncSOIbNIDk/IUPbBRT3xlW5FmpdPXdU1ctGQPyxQN zozzU5DklyYCHAMZXymGZUIIHVeAtgiWpYUeNUBX/y1KRd7MMH8lt4ZpPHRvTWgnelSdWflWDAkihZFl dLihRUXJQwZ9RHj2JOXOZvFgIA1Z ID Date Data Source [id number] 10/07/2019 06:48:45 AM EST [facility] NT INFORMATIONPatient MRN Name Date of Age Gend*PT [id number] 1975 43 years F IPPT Location Admission Date/Time Visit ID Attending [id number] 08/26/19 1601 --- --- EPI ID CSN Admitting Provider [id number] Ok Hester MD([id number]) [place] [address] DISCHARGE SUMMARY DISCHSUMNAME: ULYSSES SHEFFIELD#: [id number] #: [id number] ADMISSION DATE: 08/26/2019DOB: 1975 SEX: F PT TYPE: I SURACCT #: [id number] CARE PHYSICIAN: BRANDIN RODRIGUES OF DISCHARGE: 08/08HOSPITAL [...] followed in the office.YUKO FIGUEROA/NTS Job #: [id number] DOC #: [id number] Name Value Range Interpretation Code Description Data Bren rce(s) Supporting Document(s) ID Date Data Source [id number] 09/23/2019 11:09:05 AM EST [facility] INFORMATIONPatient MRN Name Date of Age Gend*PT [id number] [address] 1975 43 years F IPPT Location Admission Date/Time Visit ID Attending [id number] 08/26/19 1601 --- --- EPI ID CSN Admitting Provider [id number] Ok Hester MD([id number]) [place] [address] OPERATIVE REPORT OPNAME: ULYSSES SHEFFIELD#: [id number] #: [id number] ADMISSION DATE: 08/26/2019DOB: 1975 SEX: F PT TYPE: I SURACCT #: [id number] CARE PHYSICIAN: BRANDIN RODRIGUES OF OPERATION: 020PREOPERATIVE [...] taken down with 0 chromic suture ligatures. Kdghz-vt-bmmr anastomosis was performed. There appeared to be very goodblood supply to both s egments of intestine. MARLENI firing was performed, theensuing hole was then closed with a TA 60. The nrdo-ai-ydqu staple linewas reinforced with 3-0 Vicryl suture. Hemostasis was checked and found gaston adequate. Lap count was correct as was the instrument count. Abdomenwas closed with a running #1 PDS. Subcutaneous tissue was irrigated andthe skin was closed with cyndi. Sponge, needle and instrument count werecorrect.ESTIMATED BLOOD LOSS:150-200 mLYUKO FIGUEROA/BRENTON Job #: [id number] DOC #: [id number]: GRANT TUCKER MD Name Value Range Interpretation Code Description Data Bren rce(s) Supporting Document(s) ID Date Data Source [id number] 09/12/2019 10:50:00 AM EST [facility] ([facility]) Name Value Range Interpretation Code Description Data Bren rce(s) Supporting Document(s) Bacteria identified in Urine by Culture Laboratory test result [facility] ([facility]) <content>FULL REPORT IN LAB NOTES [...] <=1 S</content>
<content></content> ID Date Data Source [id number] 09/12/2019 10:49:00 AM EST [facility] Name Value Range Interpretation Code Description Data Bren rce(s) Supporting Document(s) Urine Color Laboratory test result [facility]EN T ([facility]) Urine Appearance Laboratory test result Abnormal (applies to non-numeric results) [facility] Urine PH 6.0 units 5.0-9.0 [facility]) Specific gravity of Urine 1.020 1.005-1.030 [facility] ([facility]) Urine Blood Laboratory test result Abnormal (applies to non-numeric results) [facility] ([facility]) Urine Leukocytes Laboratory test result Abnormal (applies to non-numeric results) [facility] ([facility]) Glucose [Presence] in Urine Laboratory test result [facility] ([facility]) Urine Protein Laboratory test result 0-0 Abnormal (applies to non-numeric results) [facility] ([facility]) Urine Nitrite Laboratory test result MED ENT ([facility]) Urine Ketone Laboratory test result MEDE NT ([facility]) Bilirubin.total [Mass/volume] in Serum or Plasma Laboratory test resu lt [facility] ([facility]) Urine Urobilinogen 0.2 mg/dL 0.2-1.0 [facility] ([facility]) ID Date Data Source [id number] 09/03/2019 08:24:12 AM EST [facility] Name Value Range Interpretation Code Description Data Bren rce(s) Supporting Document(s) POC NOVA GLU 155 mg/dL (70-99) H [facility] ID Date Data Source [id number] 09/02/2019 05:27:49 PM EST [facility] Name Value Range Interpretation Code Description Data Bren rce(s) Supporting Document(s) POC NOVA GLU 177 mg/dL (70-99) [facility] ID Date Data Source [id number] 09/02/2019 01:51:53 PM EST [facility] Name Value Range Interpretation Code Description Data Bren rce(s) Supporting Document(s) POC NOVA GLU 186 mg/dL (70-99) [facility] ID Date Data Source [id number] 09/02/2019 08:30:16 AM EST [facility] Name Value Range Interpretation Code Description Data Bren rce(s) Supporting Document(s) POC NOVA GLU 169 mg/dL (70-99) [facility] ID Date Data Source [id number] 09/02/2019 10:02:31 AM EST [facility] Name Value Range Interpretation Code Description Data Bren rce(s) Supporting Document(s) MAGNESIUM 1.5 mg/dL (1.7-2.4) L [facility] ID Date Data Source [id number] 09/02/2019 10:02:31 AM EST [facility] Name Value Range Interpretation Code Description Data Bren rce(s) Supporting Document(s) SODIUM 139 mmol/L (136-145) [facility] POTASSIUM 3.3 mmol/L (3.6-5.2) L [facility] CHLORIDE 104 mmol/L (100-108) [facility] CO2 24 mmol/L (22-31) [facility] ANION GAP 11 mmol/L (7-16) [facility] UREA NITROGEN 6 mg/dL (7-24) L [facility] CREATININE 0.60 mg/dL (0.60-1.00) [facility] BUN/CREAT RATIO 10.0 RATIO (10.0-20.0) [facility] GLUCOSE 165 mg/dL (70-99) H [facility] CALCIUM 8.1 mg/dL (8.4-10.2) L [facility] TOTAL PROTEIN 5.3 g/dL (6.4-8.2) L [facility] ALBUMIN 2.1 g/dL (3.5-4.6) L [facility] GLOBULIN 3.2 g/dL (2.7-4.3) [facility] ALB/GLOB RATIO 0.7 RATIO [facility] ALKALINE PHOSPHATASE 68 U/L (45-117) [facility] BILIRUBIN,TOTAL 0.7 mg/dL (0.0-1.0) [facility] AST (SGOT) 24 U/L (11-39) [facility] ALT (SGPT) 41 U/L (12-78) [facility] GFR >60 ml/min/1.73m2 (>59) [facility] GFR ( AMER) >60 ml/min/1.73m2 (>59) [facility] GFR INTERPRETATION [facility] --NORMAL KIDNEY FUNCTION OR MILD DISEASE - GFR >OR= 60CHRONIC KIDNEY DISEASE - GFR 15 - 59RENAL FAILURE - GFR <15 Est. GFR calculation based on the MDRDstudy equation, which assumes a steadystate for creatinine. Est. GFR should notbe used for medication dosing. ID Date Data Source [id number] 09/02/2019 09:19:10 AM EST [facility] Name Value Range Interpretation Code Description Data Bren rce(s) Supporting Document(s) WBC 4.9 10*3/uL (4.1-11.0) [facility] RBC 3.16 10*6/uL (4.00-5.40) L [facility] HGB 11.1 g/dL (12.0-16.0) L [facility] HCT 32.5 % (36.0-47.0) L [facility] MCV 102.8 fL (80.0-95.0) H [facility] MCH 35.2 pg (27.0-32.0) H [facility] MCHC 34.2 g/dL (32.0-36.0) [facility] RDW 16.3 % (10.5-14.5) [facility] PLT 272 10*3/uL (150-450) [facility] MPV 6.8 fL (7.1-10.7) L [facility] ID Date Data Source [id number] 09/01/2019 06:30:44 PM EST [facility] Name Value Range Interpretation Code Description Data Bren rce(s) Supporting Document(s) POC NOVA GLU 142 mg/dL (70-99) H [facility] ID Date Data Source [id number] 09/01/2019 10:26:14 AM EST [facility] Name Value Range Interpretation Code Description Data Bren rce(s) Supporting Document(s) POC NOVA GLU 209 mg/dL (70-99) [facility] ID Date Data Source [id number] 09/01/2019 09:30:36 AM EST [facility] Name Value Range Interpretation Code Description Data Bren rce(s) Supporting Document(s) SODIUM 140 mmol/L (136-145) [facility] POTASSIUM 3.2 mmol/L (3.6-5.2) L [facility] CHLORIDE 102 mmol/L (100-108) [facility] CO2 26 mmol/L (22-31) [facility] ANION GAP 12 mmol/L (7-16) [facility] UREA NITROGEN 9 mg/dL (7-24) [facility] CREATININE 0.70 mg/dL (0.60-1.00) [facility] BUN/CREAT RATIO 12.9 RATIO (10.0-20.0) [facility] GLUCOSE 177 mg/dL (70-99) H [facility] CALCIUM 8.6 mg/dL (8.4-10.2) [facility] GFR >60 ml/min/1.73m2 (>59) [facility] GFR ( AMER) >60 ml/min/1.73m2 (>59) [facility] GFR INTERPRETATION [facility] --NORMAL KIDNEY FUNCTION OR MILD DISEASE - GFR >OR= 60CHRONIC KIDNEY DISEASE - GFR 15 - 59RENAL FAILURE - GFR <15 Est. GFR calculation based on the MDRDstudy equation, which assumes a steadystate for creatinine. Est. GFR should notbe used for medication dosing. ID Date Data Source [id number] 09/01/2019 09:30:36 AM EST [facility] Name Value Range Interpretation Code Description [facility] Document(s) MAGNESIUM 1.7 mg/dL (1.7-2.4) [facility] ID Date Data Source [id number] 09/01/2019 09:07:31 AM EST [facility] Name Value Range Interpretation Code Description Data Bren rce(s) Supporting Document(s) WBC 5.0 10*3/uL (4.1-11.0) [facility] RBC 3.61 10*6/uL (4.00-5.40) L [facility] HGB 12.6 g/dL (12.0-16.0) [facility] HCT 37.3 % (36.0-47.0) [facility] MCV 103.3 fL (80.0-95.0) H [facility] MCH 34.8 pg (27.0-32.0) H [facility] MCHC 33.7 g/dL (32.0-36.0) [facility] RDW 16.2 % (10.5-14.5) H [facility] PLT 353 10*3/uL (150-450) [facility] MPV 6.4 fL (7.1-10.7) L [facility] ID Date Data Source [id number] 08/31/2019 10:15:29 PM EST [facility] Name Value Range Interpretation Code Description Data Bren rce(s) Supporting Document(s) POC NOVA GLU 133 mg/dL (70-99) H [facility] ID Date Data Source [id number] 08/31/2019 04:58:50 PM EST [facility] Name Value Range Interpretation Code Description Data Bren rce(s) Supporting Document(s) POC NOVA GLU 150 mg/dL (70-99) H [facility] ID Date Data Source [id number] 08/31/2019 11:46:12 AM EST [facility] Name Value Range Interpretation Code Description Data Bren rce(s) Supporting Document(s) POC NOVA GLU 231 mg/dL (70-99) H [facility] ID Date Data Source [id number] 08/31/2019 09:05:13 AM EST [facility] Name Value Range Interpretation Code Description Data Bren rce(s) Supporting Document(s) POC NOVA GLU 182 mg/dL (70-99) H [facility] ID Date Data Source [id number] 08/31/2019 11:25:06 AM EST [facility] Name Value Range Interpretation Code Description Data Bren rce(s) Supporting Document(s) MAGNESIUM 1.7 mg/dL (1.7-2.4) [facility] ID Date Data Source [id number] 08/31/2019 07:53:12 AM EST [facility] Name Value Range Interpretation Code Description Data Bren rce(s) Supporting Document(s) SODIUM 140 mmol/L (136-145) [facility] POTASSIUM 3.0 mmol/L (3.6-5.2) L [facility] CHLORIDE 100 mmol/L (100-108) [facility] CO2 34 mmol/L (22-31) H [facility] ANION GAP 6 mmol/L (7-16) L [facility] UREA NITROGEN 5 mg/dL (7-24) L [facility] CREATININE 0.54 mg/dL (0.60-1.00) L [facility] BUN/CREAT RATIO 9.3 RATIO (10.0-20.0) L [facility] GLUCOSE 168 mg/dL (70-99) H [facility] CALCIUM 8.5 mg/dL (8.4-10.2) [facility] GFR >60 ml/min/1.73m2 (>59) [facility] GFR ( AMER) >60 ml/min/1.73m2 (>59) [facility] GFR INTERPRETATION [facility] --NORMAL KIDNEY FUNCTION OR MILD DISEASE - GFR >OR= 60CHRONIC KIDNEY DISEASE - GFR 15 - 59RENAL FAILURE - GFR <15 Est. GFR calculation based on the MDRDstudy equation, which assumes a steadystate for creatinine. Est. GFR should notbe used for medication dosing. ID Date Data Source [id number] 08/31/2019 07:01:43 AM EST [facility] Name Value Range Interpretation Code Description Data Bren rce(s) Supporting Document(s) WBC 5.5 10*3/uL (4.1-11.0) [facility] RBC 3.33 10*6/uL (4.00-5.40) L [facility] HGB 11.8 g/dL (12.0-16.0) L [facility] HCT 34.2 % (36.0-47.0) L [facility] MCV 102.6 fL (80.0-95.0) H [facility] MCH 35.4 pg (27.0-32.0) H [facility] MCHC 34.5 g/dL (32.0-36.0) [facility] RDW 15.7 % (10.5-14.5) H [facility] PLT 281 10*3/uL (150-450) [facility] MPV 6.5 fL (7.1-10.7) L [facility] ID Date Data Source [id number] 08/30/2019 05:26:52 PM EST [facility] Name Value Range Interpretation Code Description Data Bren rce(s) Supporting Document(s) POC NOVA GLU 155 mg/dL (70-99) H [facility] ID Date Data Source [id number] 08/30/2019 12:36:32 PM EST [facility] Name Value Range Interpretation Code Description Data Bren rce(s) Supporting Document(s) POC NOVA GLU 231 mg/dL (70-99) H [facility] ID Date Data Source [id number] 08/29/2019 06:58:01 PM EST [facility] Name Value Range Interpretation Code Description Data Bren rce(s) Supporting Document(s) POC NOVA GLU 147 mg/dL (70-99) H [facility] ID Date Data Source [id number] 08/29/2019 03:46:28 PM EST [facility] Name Value Range Interpretation Code Description Data Bren rce(s) Supporting Document(s) POC NOVA GLU 206 mg/dL (70-99) H [facility] ID Date Data Source [id number] 08/29/2019 09:04:52 AM EST [facility] Name Value Range Interpretation Code Description Data Bren rce(s) Supporting Document(s) POC NOVA GLU 177 mg/dL (70-99) H [facility] ID Date Data Source [id number] 08/29/2019 10:10:09 AM EST [facility] Name Value Range Interpretation Code Description Data Bren rce(s) Supporting Document(s) SODIUM 141 mmol/L (136-145) [facility] POTASSIUM 3.6 mmol/L (3.6-5.2) [facility] CHLORIDE 105 mmol/L (100-108) [facility] CO2 29 mmol/L (22-31) [facility] ANION GAP 7 mmol/L (7-16) [facility] UREA NITROGEN 11 mg/dL (7-24) [facility] CREATININE 0.59 mg/dL (0.60-1.00) L [facility] BUN/CREAT RATIO 18.6 RATIO (10.0-20.0) [facility] GLUCOSE 183 mg/dL (70-99) H [facility] CALCIUM 7.9 mg/dL (8.4-10.2) L [facility] GFR >60 ml/min/1.73m2 (>59) [facility] GFR ( AMER) >60 ml/min/1.73m2 (>59) [facility] GFR INTERPRETATION [facility] --NORMAL KIDNEY FUNCTION OR MILD DISEASE - GFR >OR= 60CHRONIC KIDNEY DISEASE - GFR 15 - 59RENAL FAILURE - GFR <15 Est. GFR calculation based on the MDRDstudy equation, which assumes a steadystate for creatinine. Est. GFR should notbe used for medication dosing. ID Date Data Source [id number] 08/29/2019 09:38:39 AM EST [facility] Name Value Range Interpretation Code Description Data Bren rce(s) Supporting Document(s) WBC 5.0 10*3/uL (4.1-11.0) [facility] RBC 3.32 10*6/uL (4.00-5.40) L [facility] HGB 11.8 g/dL (12.0-16.0) L [facility] HCT 34.9 % (36.0-47.0) L [facility] MCV 105.4 fL (80.0-95.0) H [facility] MCH 35.6 pg (27.0-32.0) H [facility] MCHC 33.8 g/dL (32.0-36.0) [facility] RDW 16.7 % (10.5-14.5) H [facility] PLT 304 10*3/uL (150-450) [facility] MPV 6.5 fL (7.1-10.7) L [facility] ID Date Data Source [id number] 08/28/2019 07:14:27 PM EST [facility] Name Value Range Interpretation Code Description Data Bren rce(s) Supporting Document(s) POC NOVA GLU 176 mg/dL (70-99) H [facility] ID Date Data Source [id number] 08/28/2019 02:47:19 PM EST [facility] INFORMATIONPatient MRN Name Date of Age Gend*PT [id number] 1975 43 years F IPPT Location Admission Date/Time Visit ID Attending Provider --- --- --- --- EPI ID CSN Admitting Provider [id number] ---AirwayPatient location during procedure: ORUrgency: electiveDifficult airway: [...] cmPlacement verified by: chest auscultation and + EHAP1Fxeccpdfygwf: equal breath sounds bilateralGrade view: grade I - full view of glottis Name Value Range Interpretation Code Description Data Bren rce(s) Supporting Document(s) ID Date Data Source [id number] 08/28/2019 01:42:10 PM EST [facility] Name Value Range Interpretation Code Description Data Bren rce(s) Supporting Document(s) POC NOVA GLU 238 mg/dL (70-99) H [facility] ID Date Data Source [id number] 08/28/2019 12:09:02 PM EST [facility] Name Value Range Interpretation Code Description Data Bren rce(s) Supporting Document(s) POC NOVA GLU 287 mg/dL (70-99) H [facility] ID Date Data Source [id number] 08/28/2019 08:38:01 AM EST [facility] Name Value Range Interpretation Code Description Data Bren rce(s) Supporting Document(s) EKG [facility] [id number] jb2 [file] [id number]== ID Date Data Source [id number] 08/28/2019 08:35:39 AM EST [facility] Name Value Range Interpretation Code Description Data Bren rce(s) Supporting Document(s) POC NOVA GLU 188 mg/dL (70-99) H [facility] ID Date Data Source [id number] 09/05/2019 10:15:05 AM EST [facility] [place] [id number]# Surgical Pathology ReportAccession #:[id number](s) ReceivedA: Ileum [...] lobulated cut surfaces. No lymph nodesare identified. [employer]od[employer]man sections are submitted as labeled:A1. Differentially inked resection margins from shorter segmentperpendicular A2- A3. Sections of first segment to include serosal adhesions A4. Differentially inked resection margins from second segment A5-A6. Sections of small bowel from second segment to include mucosalulceration A7. Previous anastomosis A8. Large bowel mucosa adjacent to anastomosisA9. Additional section of large bowel Processed at [facility], Histopathology, [address] [place] [address], [id number].[email or web address]/[email or web address] Reported: 09/05/2019Electronically Signed Out By Ty Hernández MD [facility] This report may include immunohistochemical or in-situ hybridizationresults. Testing was developed and the performance characteristicsdetermined by [facility] as required by CLIA '88. The FDAhas determined that approval for specific use is not necessary forclinical use. The quality of Hematoxylin and Eosin stains and asapplicable, for all immunohistochemical and/or special stains, includingpositive and negative controls, were reviewed and considered appropriate.ICD codes K56.609 K50.818CPT codesA: 11620U Name Value Range Interpretation Code Description Data Bren rce(s) Supporting Document(s) ID Date Data Source [id number] 08/28/2019 08:03:26 AM EST [facility] NT INFORMATIONPatient MRN Name Date of Age Gend*PT [id number] [address] 1975 43 years F IPPT Location Admission Date/Time Visit ID Attending [id number] 08/26/19 1601 --- Ok Hester MD([id number]) EPI ID CSN Admitting Provider [id number] Ok Hester MD([id number])Pre-Procedure History and Physical:The history and physical were reviewed and no changes are noted.Ok Hester MD Name Value Range Interpretation Code Description Data Bren rce(s) Supporting Document(s) ID Date Data Source [id number] 08/28/2019 08:09:43 AM EST [facility] Name Value Range Interpretation Code Description Data Bren rce(s) Supporting Document(s) HCG, QUAL. SERUM (NEG) [facility] ID Date Data Source [id number] 08/28/2019 07:53:02 AM EST [facility] Name Value Range Interpretation Code Description Data Bren rce(s) Supporting Document(s) SODIUM 143 mmol/L (136-145) [facility] POTASSIUM 3.6 mmol/L (3.6-5.2) [facility] CHLORIDE 106 mmol/L (100-108) [facility] CO2 28 mmol/L (22-31) [facility] ANION GAP 9 mmol/L (7-16) [facility] UREA NITROGEN 14 mg/dL (7-24) [facility] CREATININE 0.60 mg/dL (0.60-1.00) [facility] BUN/CREAT RATIO 23.3 RATIO (10.0-20.0) H [facility] GLUCOSE 142 mg/dL (70-99) H [facility] CALCIUM 8.2 mg/dL (8.4-10.2) L [facility] GFR >60 ml/min/1.73m2 (>59) [facility] GFR ( AMER) >60 ml/min/1.73m2 (>59) [facility] GFR INTERPRETATION [facility] --NORMAL KIDNEY FUNCTION OR MILD DISEASE - GFR >OR= 60CHRONIC KIDNEY DISEASE - GFR 15 - 59RENAL FAILURE - GFR <15 Est. GFR calculation based on the MDRDstudy equation, which assumes a steadystate for creatinine. Est. GFR should notbe used for medication dosing. ID Date Data Source [id number] 08/28/2019 07:44:03 AM EST [facility] Name Value Range Interpretation Code Description Data Bren rce(s) Supporting Document(s) WBC 4.5 10*3/uL (4.1-11.0) [facility] [place] RBC 3.49 10*6/uL (4.00-5.40) L [facility] HGB 12.3 g/dL (12.0-16.0) [facility] HCT 36.1 % (36.0-47.0) [facility] MCV 103.6 fL (80.0-95.0) H [facility] MCH 35.4 pg (27.0-32.0) H [facility] MCHC 34.2 g/dL (32.0-36.0) [facility] RDW 16.4 % (10.5-14.5) H [facility] PLT 288 10*3/uL (150-450) [facility] MPV 6.8 fL (7.1-10.7) L [facility] ID Date Data Source [id number] 08/27/2019 08:33:35 PM EST [facility] Name Value Range Interpretation Code Description Data Bren rce(s) Supporting Document(s) POC NOVA GLU 194 mg/dL (70-99) H [facility] [place] [facility] ID Date Data Source [id number] 08/27/2019 06:02:48 PM EST [facility] Name Value Range Interpretation Code Description Data Bren rce(s) Supporting Document(s) POC NOVA GLU 216 mg/dL (70-99) H [facility] [place] [facility] ID Date Data Source [id number] 08/27/2019 01:11:00 PM EST [facility] Name Value Range Interpretation Code Description Data Bren rce(s) Supporting Document(s) POC NOVA GLU 302 mg/dL (70-99) H [facility] [place] [facility] ID Date Data Source [id number] 08/27/2019 09:38:19 PM EST [facility] Name Value Range Interpretation Code Description Data Bren rce(s) Supporting Document(s) HEMOGLOBIN A1C @ 10.7 % (4.0-6.0) H [facility] Performed using Siemens Bedias immunoassa y.Care must be taken when interpreting [id number] in patients with a hemoglobin variantor decreased erythrocyte lifespan. Values 5.7 - 6.4% suggest prediabetes.Values >=6.5% are diagnostic for diabetes.REFERENCE: DIABETES CARE 2018: 41(S13-S27).PERFORMED AT [address] [place] [id number] EST [place] GLUCOSE 260 mg/dL [facility] ID Date Data Source [id number] 08/27/2019 02:24:17 PM EST [facility] SPEC EXP DATE 08/30/2019PATI ENT ABO/Rh B POSITIVEANTIBODY SCREEN NEGATIVETESTING SITE PERFORMED AT [address] [place] [address] [id number] BANK COMMENT BLOOD TYPE CONFIRMED. Name Value Range Interpretation Code Description Data Bren rce(s) Supporting Document(s) TYPE AND SCREEN [facility] ID Date Data Source [id number] 08/27/2019 10:31:14 AM EST [facility] NT INFORMATIONPatient MRN Name Date of Age Gend*PT [id number] [address] 1975 43 years F OBSPT Location Admission Date/Time Visit ID Attending [id number] 08/26/19 1601 --- Ok Hester MD([id number]) EPI ID CSN Admitting Provider [id number] Ok Hester MD([id number])Inpatient Consult NoteUlysses Sheffield Dr. for consult: SBOImpression [...] AND FISTULOTOMY ; Surgeon: Ok Hester MD;Location: [facility]; Service: Colorectal; Laterality: N/A; ANAL FISTULOTOMY N/A 05/06/2016 Procedure: ANAL FISTULOTOMY WITH SETON PLACEMENT; Surgeon: Ok Hester MD;Location: [facility]; Service: Colorectal; Laterality: N/A; ANAL FISTULOTOMY N/A 12/29/2017 Procedure: FISTULOTOMY ANAL; Surgeon: Ok Hester MD; Laterality: N/A; APPENDECTOMY CHOLECYSTECTOMY COLONOSCOPY 2015 CYSTOSCOPY INCISION AND DRAINAGE PERIRECTAL ABSCESS N/A 01/07/2016 Procedure: INCISION AND DRAINAGE RECTAL ABSCESS; Surgeon: Ok Hester MD;Location: [facility]; Service: Colorectal; Laterality: N/A; INCISION AND DRAINAGE PERIRECTAL ABSCESS N/A 12/16/2015 Procedure: INCISION AND DRAINAGE ISCHIORECTAL ABSCESS; Surgeon: Ok Hester MD; Location: [facility]; Service: Colorectal; Laterality: N/A; INCISION AND DRAINAGE PERIRECTAL ABSCESS N/A 11/13/2015 Procedure: INCISION AND DRAINAGE RECTAL ABSCESS WITH SETON PLACEMENT ;Surgeon: Ok Hester MD; Location: [facility]; Service: Colorectal;Laterality: N/A; INCISION AND DRAINAGE PERIRECTAL ABSCESS N/A 11/17/2016 Procedure: INCISION AND DRAINAGE ISCHIORECTAL ABSCESS; Surgeon: Ok Hester MD; Location: [facility]; Service: Colorectal; Laterality: N/A; LITHOTRIPSY X3 Small [...] mcg by mouth daily12/26/2017 vitamin D, Ergocalciferol, 03622 UNITS CAPS Take 1 capsule by mouth [...] Imaging and Other Diagnostics:Diagnostic tests reviewed:Labs from [facility] Brief:Lab ResultsComponent Value Date WBC 3.0 (L) [...] No results found for: PROTIME, INR, APTT, MAKWHSCZTM96/30/2019: Colonoscopy. Prpe was adequate. 1 seton removed [...] rce(s) Supporting Document(s) ID Date Data Source [id number] 08/27/2019 10:01:14 AM EST [facility] NT INFORMATIONPatient MRN Name Date of Age Gend*PT [id number] [address] 1975 43 years F OBSPT Location Admission Date/Time Visit ID Attending [id number] 08/26/19 1601 --- Ok Hester MD([id number]) EPI ID CSN Admitting Provider [id number] Ok Hester MD([id number])Patient is transferred with exacerbation of her Crohn's disease. She presentswith crampy abdominal pains and nausea. She is not had any episodes of emesis.She had worsening of her symptoms while hospitalized in [place]. He has aknown history of recurrent ileal [...] rce(s) Supporting Document(s) ID Date Data Source [id number] 08/27/2019 09:56:46 AM EST [facility] NT INFORMATIONPatient MRN Name Date of Age Gend*PT [id number] [address] 1975 43 years F OBSPT Location Admission Date/Time Visit ID Attending [id number] 08/26/19 1601 --- Ok Hester MD([id number]) EPI ID CSN Admitting Provider [id number] Ok Hester MD([id number]) Attestation signed by Ok Hester MD at 08/27/2019 9:56 AMSignature: ABI Figueroaate: August 27, 2019Time: 9:56 AM --Surgical Services History&PhysicalUlysses Sheffield Dr. 1975 43 years08/26/2019 PCP: BRANDIN HUMPHRIES MDInformant: Ulysses Sheffield Dr[address] Reliable Yes; [facility] "I have a Small bowel [...] AND FISTULOTOMY ; Surgeon: Ok Hester MD;Location: [facility]; Service: Colorectal; Laterality: N/A; ANAL FISTULOTOMY N/A 05/06/2016 Procedure: ANAL FISTULOTOMY WITH SETON PLACEMENT; Surgeon: Ok Hester MD;Location: [facility]; Service: Colorectal; Laterality: N/A; ANAL FISTULOTOMY N/A 12/29/2017 Procedure: FISTULOTOMY ANAL; Surgeon: Ok Hester MD; Laterality: N/A; APPENDECTOMY CHOLECYSTECTOMY COLONOSCOPY 2015 CYSTOSCOPY INCISION AND DRAINAGE PERIRECTAL ABSCESS N/A 01/07/2016 Procedure: INCISION AND DRAINAGE RECTAL ABSCESS; Surgeon: Ok Hester MD;Location: [facility]; Service: Colorectal; Laterality: N/A; INCISION AND DRAINAGE PERIRECTAL ABSCESS N/A 12/16/2015 Procedure: INCISION AND DRAINAGE ISCHIORECTAL ABSCESS; Surgeon: Ok Hester MD; Location: [facility]; Service: Colorectal; Laterality: N/A; INCISION AND DRAINAGE PERIRECTAL ABSCESS N/A 11/13/2015 Procedure: INCISION AND DRAINAGE RECTAL ABSCESS WITH SETON PLACEMENT ;Surgeon: Ok Hester MD; Location: [facility]; Service: Colorectal;Laterality: N/A; INCISION AND DRAINAGE PERIRECTAL ABSCESS N/A 11/17/2016 Procedure: INCISION AND DRAINAGE ISCHIORECTAL ABSCESS; Surgeon: Ok Hester MD; Location: [facility]; Service: Colorectal; Laterality: N/A; LITHOTRIPSY X3 Small [...] mcg by mouth daily12/26/2017 vitamin D, Ergocalciferol, 04521 UNITS CAPS Take 1 capsule by mouth [...] is fair, oropharynx without exudates or lesions.Heart: [id number]: CTA bilaterally. Respiratory effort non- labored.Abdomen: Obese, softly distended, minimally TTP RLQ, bowel sounds present, noguarding no rebound tenderness.Back: No CVA tenderness.Musculoskeletal: No muscle atrophy or weakness appreciated.Vascular/Ext: No calf tenderness or LE edema. Distal pulses intact.L abs, Imaging and other Diagnostics:Labs reviewed from [facility] 08/26/19 0539 as followsWBC 4.1H&H 12.8/38.3plt 287Cr 0.58CT abd/pelvis with IV contrastKUBChest XRAbove images on disc from [facility], Brought to imaging & awaiting uploads.Assessment and [...] rce(s) Supporting Document(s) ID Date Data Source [id number] 08/27/2019 08:01:23 AM EST [facility] Name Value Range Interpretation Code Description Data Bren rce(s) Supporting Document(s) POC NOVA GLU 308 mg/dL (70-99) H [facility] [place] [facility] ID Date Data Source [id number] 08/27/2019 09:36:31 AM EST [facility] Name Value Range Interpretation Code Description Data Bren rce(s) Supporting Document(s) ALBUMIN 2.9 g/dL (3.5-4.6) L [facility] ID Date Data Source [id number] 08/27/2019 09:02:23 AM EST [facility] Name Value Range Interpretation Code Description Data Bren rce(s) Supporting Document(s) SODIUM 138 mmol/L (136-145) [facility] POTASSIUM 4.3 mmol/L (3.6-5.2) [facility] CHLORIDE 100 mmol/L (100-108) [facility] CO2 29 mmol/L (22-31) [facility] ANION GAP 9 mmol/L (7-16) [facility] UREA NITROGEN 16 mg/dL (7-24) [facility] CREATININE 0.73 mg/dL (0.60-1.00) [facility] BUN/CREAT RATIO 21.9 RATIO (10.0-20.0) H [facility] GLUCOSE 296 mg/dL (70-99) H [facility] CALCIUM 8.4 mg/dL (8.4-10.2) [facility] GFR >60 ml/min/1.73m2 (>59) [facility] GFR ([facility] AM) >60 ml/min/1.73m2 (>59) [facility] GFR INTERPRETATION [facility] --NORMAL KIDNEY FUNCTION OR MILD DISEASE - GFR >OR= 60CHRONIC KIDNEY DISEASE - GFR 15 - 59RENAL FAILURE - GFR <15 Est. GFR calculation based on the MDRDstudy equation, which assumes a steadystate for creatinine. Est. GFR should notbe used for medication dosing. ID Date Data Source [id number] 08/27/2019 08:38:21 AM EST [facility] Name Value Range Interpretation Code Description Data Bren rce(s) Supporting Document(s) WBC 3.0 10*3/uL (4.1-11.0) L [facility] [place] RBC 3.63 10*6/uL (4.00-5.40) L [facility] HGB 12.8 g/dL (12.0-16.0) [facility] HCT 38.1 % (36.0-47.0) [facility] PERFORMED AT [address] [place] [address] N [place] [address] MCV 104.8 fL (80.0-95.0) H [facility] MCH 35.3 pg (27.0-32.0) H [facility] MCHC 33.7 g/dL (32.0-36.0) [facility] RDW 16.2 % (10.5-14.5) H [facility] PLT 319 10*3/uL (150-450) [facility] MPV 7.1 fL (7.1-10.7) [facility] Procedure Social History Code Duration Value Status Description Data Source(s ) Alcohol intake 09/01/2019 12:00:00 AM EST Yes completed [facility] Smoking 09/01/2019 12:00:00 AM EST Never smoker completed Never s moker [facility] Vital Signs ID Date Data Source UNK Name Value Range Interpretation Code Description Data Source(s) Body mass index (BMI) [Ratio] 41.3 kg/m2 41.3 k g/m2 [facility] ([facility]) Body weight 260.00 [lb_av] 260.00 [lb_av] [facility] Body height 66.50 [in_i] 66.50 [in_i] [facility] ([facility]) 5'6.50" Heart rate 68 /min 68 /min [facility] Diastolic blood pressure 68 mm[Hg] 68 mm[Hg] [facility] ([facility]) Systolic blood pressure 120 mm[Hg] 120 mm[Hg] [facility] ([facility]) Body mass index (BMI) [Ratio] 43.9 kg/m2 43.9 k g/m2 [facility] Body weight 276.00 [lb_av] 276.00 [lb_av] [facility] Body height 66.50 [in_i] 66.50 [in_i] [facility] ([facility]) 5'6.50" Heart rate 76 /min 76 /min [facility] ([facility]) Diastolic blood pressure 727 mm[Hg] 727 mm[Hg] [facility] ([facility]) Systolic blood pressure 118 mm[Hg] 118 mm[Hg] [facility] ([facility]) Body mass index (BMI) [Ratio] 47.1 kg/m2 47.1 k g/m2 [facility] ([facility]) Body weight 296.00 [lb_av] 296.00 [lb_av] [facility] ([facility]) Body height 66.50 [in_i] 66.50 [in_i] [facility] ([facility]) 5'6.50" Heart rate 82 /min 82 /min [facility] ([facility]) Diastolic blood pressure 76 mm[Hg] 76 mm[Hg] [facility] ([facility]) Systolic blood pressure 128 mm[Hg] 128 mm[Hg] [facility] ([facility]) Body mass index (BMI) [Ratio] 47.9 [...] weight 296.00 [lb_av] 296.00 [lb_av] [facility] ([facility]) Heart rate 80 /min 80 /min [facility] ([facility]) Diastolic blood pressure 78 mm[Hg] 78 mm[Hg] [facility] ([facility]) Systolic blood pressure 128 mm[Hg] 128 mm[Hg] [facility] ([facility]) Body mass index (BMI) [Ratio] 47.6 [...] by Pulse oximetry 93 % 93 % [facility] Respiratory rate 20 /min 20 /min [facility] Body temperature 36.78 Roro 36.78 Roro [facility] Heart rate 97 /min 97 /min [facility] Diastolic blood pressure 68 mm[Hg] 68 mm[Hg] [facility] Systolic blood pressure 105 mm[Hg] 105 mm[Hg] [facility] Body mass index (BMI) [Ratio] 49.55 kg/m2 49.55 kg/m2 [facility] Body weight 139.254 kg 139.254 kg [facility] Body height 167.6 cm 167.6 cm [facility] Patient Treatment Plan of Care Planned Activity Planned Date Details Description Data Source (s) Acetaminophen 325 MG / Hydrocodone Bitartrate 5 MG Ora l Tablet 09/03/2019 12:00:00 AM [facility] cefdinir 300 MG Oral Capsule 08/18/2019 12:00:00 AM EST [facility] Multiple Vitamin (MULTIVITAMIN) tablet [facility] Probiotic Product (PROBIOTIC DAILY PO) [facility] Ergocalciferol 83936 UNT Oral Capsule [facility] certolizumab pegol 200 MG Injection [facility]
--- NOTE | 2020-08-22 09:30 | SMCUROLCON ---
Urology Consultation General Date of Consultation 08/22/20 Reason For Consultation This patient is seen for Right Ureteral Calculus. History of Present Illness The patient is a 44-year-old female with a past medical history for renal calculi. She presented to the emergency room this morning because of severe sudden onset right flank pain and a CT scan shows an obstructing 5 mm calculus at the UPJ. She has had numerous stones in the past all of which have been retrieved ureteroscopically. Past Medical History Medical History CoVid-positive Renal calculi Crohn's disease Surgical Hstory Numerous ureteroscopic lithotripsies Social History * Smoker: non-smoker Alcohol: Denies Drugs: denies Medications Current Medications Current Medications Medications (Trade) Dose Ordered Sig/Marilyn Route PRN Reason Start Time Stop Time Status Last Admin Dose Admin Home Med (Med Rec Complete!) ASDIRECTED XX 08/22/20 08:30 08/22/20 08:31 DC Allergies Allergies: Coded Allergies: carbamazepine (Verified Allergy, Unknown, 05/16/19) rash Review of Systems General: Reports: Normal Appetite; Denies: Fatigue, Malaise Constitutional: Denies: Fever, Chills, Sweats, Weakness, Malaise Eyes: Denies: Pain, Vision change ENT: Denies: Head Aches, Sore Throat, Epistaxis Skin: Denies: Rash, Lesions, Breakdown, Nail Changes Pulmonary: Denies: Dyspnea, Cough Cardiovascular: Denies Chest Pain, Denies Palpitations Gastrointestinal: Denies: Nausea, Vomiting, Abdominal Pain Genitourinary: Denies: Dysuria, Frequency, Incontinence, Hematuria Hematologic: Denies: Bruising, Bleeding Excessively Endocrine: Denies: Polydipsia, Polyphagia, Polyuria, Heat Intolerance, Cold Intolerance, Other Endocrine Sx Musculoskeletal: Denies: Neck Pain, Back Pain Neurological: Denies: Weakness, Numbness, Incoordination, Change in Speech Psych: Reports: Mood Normal; Denies: Anxiety, Depression Physical Examination General Exam: Cooperative, Mild Distress EYE EXAM: PERRLA, Conjunctiva & lids normal, EOMI; No: Sclera icteric ENT EXAM: Atraumatic, Mucous membr. moist/pink, Pharynx Normal Neck Exam: Supple; No: JVD, thyromegaly Chest Exam: Clear to auscultation, Normal air movement Heart Exam: Rate Normal, Regular Rhythm, Normal S1, Normal S2; No: Murmurs, Rubs Abdomen Exam: Normal Bowel Sounds, Soft; No: Tenderness, Hepatospenomegaly Skin Exam: Nl turgor and temperature; No: Rash, Breakdown Neuro Exam: Normal Gait, Normal Speech, Cranial Nerves 3-12 NL, Reflexes 2+ Psych Exam: Mental status NL, Mood NL, Oriented x 3 Vital Signs/I&O Vital Signs Date Time Temp Pulse Resp B/P (MAP) Pulse Ox O2 Delivery O2 Flow Rate FiO2 08/22/20 08:04 18 98 Room Air 08/22/20 08:00 102 08/22/20 07:45 133/73 (93) Laboratory Data 24H Labs Laboratory Tests 2 08/22/20 05:14: Immature Granulocyte % (Auto) 0.8, Neutrophils (%) (Auto) 69.5H, Lymphocytes (%) (Auto) 21.4L, Monocytes (%) (Auto) 7.4H, Eosinophils (%) (Auto) 0.8, Basophils (%) (Auto) 0.1, Neutrophils # (Auto) 5.4, Lymphocytes # (Auto) 1.7, Monocytes # (Auto) 0.6, Eosinophils # (Auto) 0.1, Basophils # (Auto) 0.0, Nucleated Red Blood Cells % (auto) 0.0, Prothrombin Time 14.1H, Prothromb Time International Ratio 1.07, Activated Partial Thromboplast Time 37.9, Anion Gap 11, Glomerular Filtration Rate > 60.0, Lactic Acid Level 4.3*H, Calcium Level 8.5, Total Bilirubin 0.9, Direct Bilirubin 0.3H, Aspartate Amino Transf (AST/SGOT) 37, Alanine Aminotransferase (ALT/SGPT) 46, Alkaline Phosphatase 85, Total Protein 6.7, Albumin 3.1L, Albumin/Globulin Ratio 0.9L, Lipase 459H CBC/BMP Laboratory Tests 08/22/20 05:14 Assessment Obstructing right ureteral calculus. Because of the degree of hydronephrosis and the patient's past history of not being able to pass stones, the decision is made to insert a ureteral stent. Plan Because of the patient's CoVid positive status and the degree of pain, the decision was made to insert a ureteral stent and treat the stone at a later date either with ESWL or ureteroscopic laser lithotripsy. Patient was in agreement with this. Time Spent on Consult: Time Spent / Consult (Minutes): 55 ROSA MARROQUIN MD Aug 22, 2020 09:30
--- NOTE | 2020-08-22 09:34 | ROOPDOC ---
[facility] Report Of Operation Report of Operation DATE OF PROCEDURE: 08/22/20 PREPROCEDURE DIAGNOSES: Obstructing right UPJ calculus POSTPROCEDURE DIAGNOSES: Same PROCEDURE: Cystoscopy, right retrograde An ureteral stent insertion SURGEON: Ronan Fernandes MD [employer] SUPERVISOR: None ANESTHESIA: Mac ESTIMATED BLOOD LOSS: Approximately 0 mL. COMPLICATIONS: None REMARKS: Impacted right UPJ calculus PROCEDURE NOTE: The patient was brought to the operating room for stent insertion. The decision was made not to attempt ureteroscopic stone retrieval because of recovered positive status. DESCRIPTION OF PROCEDURE: The patient was placed on table in supine position and given Mac anesthesia. She was then placed in lithotomy position, prepped with Betadine paint, draped in aseptic manner and timeout was performed. The urethra was then anesthetized with lidocaine gel. A 22 Welsh cystoscope was then inserted into the meatus and advanced under direct vision of a 30 lens of the bladder. Her bladder was drained and refilled with sterile water. The right ureteral orifice was identified, catheterized with a Pollack catheter retrograde injection of Conray was performed. Upon initiation of fluoroscopy, the patient was found to have retained contrast from her prior CT performed hours before with an impacted right UPJ calculus. Contrast was injected into the ureter and no further stones were identified in the ureteral lumen. A wire guidance and passed up the ureter past the stone into the renal pelvis and a 5 Welsh double-J stent was passed over this wire and cold well in the renal pelvis and in the bladder when the wire was removed. The bladder was drained, cystoscope was removed and the patient was sent to the recovery area in stable condition having tolerated the procedure well. The patient will be brought back to the operating room in a few weeks after she has been cleared medically for stone retrieval or ESWL. Fluoroscopy was used throughout the case and interpretation was performed throughout the case to evaluate stone position, obstruction and stent placement. RONAN FERNANDES MD Aug 22, 2020 09:34
[2020-08-22 09:40] VITALS: BP 123/83
--- NOTE | 2020-08-22 10:06 | REP ---
INDICATION: RIGHT STENT PLACEMENT. COMPARISON: CT abdomen and pelvis 08/22/2020. TECHNIQUE: C-arm view abdomen performed. FINDINGS: Contrast opacifies a mildly dilated right pelvocaliceal system. Proximal aspect of a right ureteral stent is visualized with the proximal end coiled in the right renal pelvis. IMPRESSION: 12 seconds of fluoroscopy time was utilized. <Electronically signed by Shemar Oseguera > 08/22/20 1002
== END | disposition home or self-care (01) ==
LOC: M ED 04:54 → M SDC 04:55
PROVIDERS: ATTEND Urology
DX: N20.1 Calculus of ureter (principal); K50.90 Crohn's disease, unspecified, without complications; U07.1 COVID-19; Z88.8 Allergy status to other drugs, medicaments and biological substances
CPT/HCPCS: 36415; 52332; 74177; 74420; 80048; 80076; 83605; 83690; 85025; 85610; 85730; 93041; 96361; 96374; 96375; 96376; 99285; C1769; C2617; J0690; J1885; J2250; J2270; J2405; J3010; Q9961; Q9967

== ENCOUNTER → 2020-08-26 | Outpatient (CLI) | payer BC ==
[~2020-08-26] MED LIST changes: -CONRAY-60 60% 50ML VIAL (Q9961) As Ordered ONE; -IBUPROFEN 600MG TAB PO PRN; -ISOVUE-370 76% 100ML VIAL As Ordered ONE; -KETOROLAC 30 MG/ML 1ML VIAL IV ONE; -LIDOCAINE 2% 100MG/5ML SDV (FOR ANES.) As Ordered ONE; -LIDOCAINE 2% 5ML JELLY UROJET As Ordered ONE; -LR 1,000 ML IV SCH; -MIDAZOLAM INJ 2MG/2ML VIAL (J2250 PER 1MG) As Ordered ONE; -MORPHINE 2 MG/ML 1ML VIAL (J2270) As Ordered ONE; -MORPHINE 2 MG/ML 1ML VIAL (J2270) IV ONE; -MORPHINE 4 MG/ML 1ML VIAL/SYRINGE (J2270) IV ONE; -NS 1,000 ML IV ONE; -ONDANSETRON 4MG/2ML VIAL As Ordered ONE; -ONDANSETRON 4MG/2ML VIAL IV ONE; -TAMSULOSIN 0.4 MG CAP PO ONE; -ceFAZolin 2 GM/D5W 50 ML IV BAG (J0690 PER 500MG) IV ONE; -fentaNYL 100 MCG/2 ML INJECTION (J3010) As Ordered ONE; -fentaNYL 100 MCG/2 ML INJECTION (J3010) IV PRN; -propofoL 200 MG/20 ML VIAL As Ordered ONE
--- NOTE | 2020-08-26 15:22 | ECGEPIP ---
[facility] Test Date: 2020-08-26 Pat Name: PAT SHEFFIELD Department: Room: - Gender: Female Cath Lab Radiological Technologist: : 1975 Requested By: MARGIE Martin Order Number: [id number] Reading MD: Zoey Grimes Measurements Intervals Bradford Rate: 93 P: 30 SD: 195 QRS: -13 QRSD: 79 T: 29 QT: 373 QTc: 465 Interpretive Statements SINUS RHYTHM LEFT AXIS DEVIATION SIMILAR TO 06/23/20 BORDERLINE 1ST DEGREE BLOCK Electronically Signed on 08-26-2020 15:22:01 EST by Zoey Grimes
--- NOTE | 2020-08-27 10:38 | REP ---
INDICATION: CALCULUS OF KIDNEY, PRE-OP, LAB 1ST EKG 2ND XR 3RD COMPARISON: 08/25/2019 TECHNIQUE: PA and lateral. FINDINGS: The mediastinum and cardiac silhouette are normal. The lung painting are clear and without acute consolidation, effusion, or pneumothorax. The skeletal structures are intact and normal. IMPRESSION: No acute cardiopulmonary process. <Electronically signed by Torrey Bales > 08/27/20 [id number]
== END ==
LOC: M LAB 11:59
PROVIDERS: ATTEND Urology
DX: Z01.818 Encounter for other preprocedural examination (principal); R94.31 Abnormal electrocardiogram [ECG] [EKG]; N20.0 Calculus of kidney; N39.0 Urinary tract infection, site not specified

== ENCOUNTER → 2020-08-27 | Outpatient (REF) | payer BC ==
[2020-08-27 19:30] LABS: APPEARANCE, URINE TURBID (CLEAR); BACTERIA, URINE AUTO NEGATIVE (NEGATIVE); BILIRUBIN, URINE AUTO NEGATIVE (NEGATIVE); BLOOD, URINE BLOOD 3+ (NEGATIVE); CALCIUM OXALATE CRYSTALS SMALL; COLOR, URINE YELLOW (YELLOW); GLUCOSE, URINE (UA) AUTO 1+ mg/dL (NEGATIVE); KETONE, URINE AUTO TRACE mg/dL (NEGATIVE); LEUKOCYTE ESTERASE, URINE AUTO NEGATIVE (NEGATIVE); MUCUS, URINE SMALL (NEGATIVE); NITRITE, URINE AUTO NEGATIVE (NEGATIVE); PROTEIN, URINE AUTO 2+ mg/dL (NEGATIVE); RBC, URINE AUTO TNTC /HPF (0-3); SPECIFIC GRAVITY URINE AUTO 1.025 (1.002-1.035); SQUAMOUS EPITHELIAL CELL UR AU 0 /HPF (0-6); UROBILINOGEN, URINE AUTO 0.2 mg/dL (0.0-2.0); WBC, URINE AUTO 4 /HPF (0-3)
== END ==
LOC: M SMT 17:07
PROVIDERS: ATTEND Urology
DX: N20.0 Calculus of kidney (principal); Z01.818 Encounter for other preprocedural examination; N39.0 Urinary tract infection, site not specified

== ENCOUNTER 2020-08-28 06:08 | Day surgery (SDC) | payer BC ==
[~2020-08-28] VITALS: Ht 167.6 cm; Wt 120.7 kg
[~2020-08-28 06:08] MED LIST changes: +LR 1,000 ML IV ONE; -OXYB5TAB10 PO; +ceFAZolin SOD 2 GM in IV 1 EA IV ONE
--- OUTSIDE RECORDS SUMMARY | 2020-08-28 06:12 | CCD ---
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 Active 36119614 Problem Immunosuppression D89.9 Active 49852550 Problem Diarrhea of presumed infectious origin R19.7 A ctive 04668648 Problem Clostridium difficile colitis A04.72 Active 42 7490818 Problem Kidney stone N20.0 Active 41087047 Problem Perianal abscess K61.0 Active 53558224 Problem UTI (urinary tract infection) N39.0 Active 68 510497 Problem Obstructive sleep apnea syndrome G47.33 Active 31399394 Problem Cellulitis, perineum L03.315 Active 37903700 Problem Intertriginous dermatitis associated with moisture L30.4 Active 426396711 Problem Weight gain R63.5 Active 7816641 Problem Preop testing Z01.818 Active 168503573 ALLERGIES Allergen (clinical drug ingredient) Drug/Non Drug Allergy do cumented on EMR Reaction Allergy Type Onset Date Status carbamazepine Carbamazepine([facility] Code:[address]-33) Rash Drug A llergy Active ENCOUNTERS from 1975 to 2020-08-24 Encounter Location Date Provider Diagnosis [facility] [address] [place] [address] Aug Christ Chiu Kidney stone N20.0 ; Preop testing Z01.8 18 and UTI (urinary tract infection) N39.0 IMMUNIZATIONS Vaccine Route Administration Date Status Pneumococcal [...] bid for 30 day(s) Oct, Not-Taking Cholecalciferol 47197 UNIT 1 cap Orally weekly Not-Taking Potassium Bicarb-Citric Acid 15 1 tablet Orally twice daily Not-Taking Hydrochlorothiazide 12.5 MG 1 capsule Orally Once a day Not-Taking Pentasa 500 MG 4 capsules Orally twice a day prn Active Cimzia 2 X 200 MG 1 injection Subcutaneous monthly Active Mycostatin 575101 UNIT/GM as directed Externally Twice a day [...] Information RESULTS No Results REASON FOR VISIT Surgery MEDICAL (GENERAL) HISTORY Type Description Date Medical [...] Hospitalization History Septic Infection 2008 Hospitalization History [place]- rectal abscess 11/2015 Goals Section No Information Health Concerns No Information MEDICAL EQUIPMENT No Information MENTAL STATUS No Information FUNCTIONAL STATUS No Information ASSESSMENTS Encounter Date Diagnosis Assessment Notes Treatment Notes Treatm ent Clinical Notes Aug, Kidney stone (ICD-10 - N20.0) Aug, Preop testing (ICD-10 - Z01.818) Aug, UTI (urinary tract infection) (ICD-10 - N39.0) PLAN OF TREATMENT Medication Medication Name Sig Start Date Stop Date Doxycycline Hyclate 100 MG 1 tablet Orally Twice a day for 1 0 day(s) May, Mycostatin 540440 UNIT/GM as directed Externally Twice a day for 30 day(s) May, Bactrim DS 800-160 MG 1 tablet Orally 3 times a week for 30 day( s) Oct, Treatment Notes Test Name Order Date URINE CULTURE 2020-08-24 [facility] Chest, 2 view (PA\Lat) 2020-08-24 Electrocardiogram (EKG) 2020-08-24 Next Appt Details Provider Name:Luna Gonzales, 09:30:00 AM, [id number], [place], [address], Insurance Providers Payer Name Payer Address Payer Phone Insured Name Patient Relati onship to Insured Coverage Start Date Coverage End Date [employer] [place] [phone] [facility] [place] [id number] PAT SHEFFIELD self
--- OUTSIDE RECORDS SUMMARY | 2020-08-28 06:14 | CCD ---
Author Author [facility] Organization [facility] Address Unknown Phone Unavailable Care Team Providers Care Screedman Name Role Phone Alexandra Humphries MD Unavailable [...] Unavailable Unavailable Alexandra Humphries MD Unavailable Unavailable [place] BautistaAlexandra MD Unavailable Unavailable [place] BautistaAlexandra MD Unavailable Unavailable AnaAlexandra MD Unavailable Unavailable [place] BautistaAlexandra MD Unavailable Unavailable [place] BautistaAlexandra MD Unavailable Unavailable [place] BautistaAlexandra MD Unavailable Unavailable AnaAlexandra MD Unavailable Unavailable [place] BautistaAlexandra MD Unavailable Unavailable [place] BautistaAlexandra MD Unavailable Unavailable [place] BautistaAlexandra MD Unavailable Unavailable AnaAlexandra MD Unavailable Unavailable AnaAlexandra MD Unavailable Unavailable [place] BautistaAlexandra MD Unavailable Unavailable AnaAlexandra MD Unavailable Unavailable AnaAlexandra MD Unavailable Unavailable [place] BautistaAlexandra MD Unavailable Unavailable AnaAlexandra MD Unavailable Unavailable [place] BautistaAlexandra MD Unavailable Unavailable AnaAlexandra MD Unavailable Unavailable AnaAlexandra MD Unavailable Unavailable [place] BautistaAlexandra MD Unavailable Unavailable [place] BautistaAlexandra MD Unavailable Unavailable AnaAlexandra MD Unavailable Unavailable AnaAlexandra MD Unavailable Unavailable [place] BautistaAlexandra MD Unavailable Unavailable [place] BautistaAlexandra MD Unavailable Unavailable [place] BautistaAlexandra MD Unavailable Unavailable AnaAlexandra MD Unavailable Unavailable [place] BautistaAlexandra MD Unavailable Unavailable AnaAlexandra MD Unavailable Unavailable [place] BautistaAlexandra MD Unavailable Unavailable [place] BautistaAlexandra MD Unavailable Unavailable [place] BautistaAlexandra MD Unavailable Unavailable AnaAlexandra MD Unavailable Unavailable AnaAlexandra MD Unavailable Unavailable AnaAlexandra MD Unavailable Unavailable AnaAlexandra MD Unavailable Unavailable AnaAlexandra MD Unavailable Unavailable AnaAlexandra MD Unavailable Unavailable AnaAlexandra MD Unavailable Unavailable AnaAlexandra MD Unavailable Unavailable [place] BautistaAlexandra MD Unavailable Unavailable [place] BautistaAlexandra MD Unavailable Unavailable [place] BautistaAlexandra MD Unavailable Unavailable [place] BautistaAlexandra MD Unavailable Unavailable AnaAlexandra MD Unavailable Unavailable AnaAlexandra MD Unavailable Unavailable AnaAlexandra MD Unavailable Unavailable AnaAlexandra MD Unavailable Unavailable AnaAlexandra MD Unavailable Unavailable AnaAlexandra MD Unavailable Unavailable [place] BautistaAlexandra MD Unavailable Unavailable [place] BautistaAlexandra MD Unavailable Unavailable [place] BautistaAlexandra MD Unavailable Unavailable [place] BautistaAlexandra MD Unavailable Unavailable [place] BautistaAlexandra MD Unavailable Unavailable Ana, Alexandra Ferrara MD Unavailable Unavailable Ana, Alexandra Ferrara MD Unavailable Unavailable [place], Alexandra Ferrara MD Unavailable Unavailable [place], Alexandra Ferrara MD Unavailable Unavailable Ana, Alexandra Ferrara MD Unavailable Unavailable Ana, Alexandra Ferrara MD Unavailable Unavailable [place], Alexandra Ferrara MD Unavailable Unavailable EV (ISADORA), [...] MD Unavailable Unavailable AnaAlexandra MD Unavailable Unavailable [place] BautistaAlexandra MD Unavailable Unavailable [place] BautistaAlexandra MD Unavailable Unavailable [place] BautistaAlexandra MD Unavailable Unavailable AnaAlexandra MD Unavailable Unavailable [place] BautistaAlexandra MD Unavailable Unavailable [place] BautistaAlexandra MD Unavailable Unavailable [place] BautistaAlexandra MD Unavailable Unavailable AnaAlexandra MD Unavailable Unavailable AnaAlexandra MD Unavailable Unavailable AnaAlexandra MD Unavailable Unavailable [place] BautistaAlexandra MD Unavailable Unavailable AnaAlexandra MD Unavailable Unavailable AnaAlexandra MD Unavailable Unavailable [place] BautistaAlexandra MD Unavailable Unavailable AnaAlexandra MD Unavailable Unavailable [place] BautistaAlexandra MD Unavailable Unavailable AnaAlexandra MD Unavailable Unavailable AnaAlexandra MD Unavailable Unavailable [place] BautistaAlexandra MD Unavailable Unavailable [place] BautistaAlexandra MD Unavailable Unavailable [place] BautistaAlexandra MD Unavailable Unavailable [place] BautistaAlexandra MD Unavailable Unavailable [place] BautistaAlexandra MD Unavailable Unavailable AnaAlexandra MD Unavailable Unavailable AnaAlexandra MD Unavailable Unavailable AnaAlexandra MD Unavailable Unavailable AnaAlexandra MD Unavailable Unavailable AnaAlexandra MD Unavailable Unavailable AnaAlexandra MD Unavailable Unavailable [place] BautistaAlexandra MD Unavailable Unavailable AnaAlexandra MD Unavailable Unavailable AnaAlexandra MD Unavailable Unavailable [place] BautistaAlexandra MD Unavailable Unavailable [place] BautistaAlexandra caldera MD Unavailable Unavailable [place] BautistaAlexandra caldera MD Unavailable Unavailable AnaAlexandra MD Unavailable Unavailable [place] BautistaAlexandra MD Unavailable Unavailable [place] BautistaAlexandra caldera MD Unavailable Unavailable AnaAlexandra MD Unavailable Unavailable AnaAlexandra caldera MD Unavailable Unavailable AnaAlexandra caldera MD Unavailable Unavailable [place] BautistaAlexandra caldera MD Unavailable Unavailable AnaAlexandra MD Unavailable Unavailable [place] BautistaAlexandra MD Unavailable Unavailable [place] BautistaAlexandra MD Unavailable Unavailable [place] BautistaAlexandra MD Unavailable Unavailable AnaAlexandra MD Unavailable Unavailable AnaAlexandra MD Unavailable Unavailable AnaAlexandra MD Unavailable Unavailable [place] BautistaAlexandra MD Unavailable Unavailable NaaAlexandra MD Unavailable Unavailable [place] BautistaAlexandra MD Unavailable Unavailable [place] BautistaAlexandra MD Unavailable Unavailable AnaAlexandra MD Unavailable Unavailable [place], F Brandin MD Unavailable Unavailable Ana, F Brandin MD Unavailable Unavailable Ana, F Brandin MD Unavailable Unavailable [place], F Brandin MD Unavailable Unavailable Ana, F Brandin MD Unavailable Unavailable [place], F Ferrara MD Unavailable Unavailable [place], F Brandin MD Unavailable Unavailable [place], F Brandin MD Unavailable Unavailable [place], F Brandin MD Unavailable Unavailable Ana, F Brandin MD Unavailable Unavailable [place], F Brandin MD Unavailable Unavailable [place], F Brandin MD Unavailable Unavailable [place], F Ferrara MD Unavailable Unavailable Ana, F Brandin MD Unavailable Unavailable [place], F Ferrara MD Unavailable Unavailable Ana, F Ferrara MD Unavailable Unavailable Ana, F Ferrara MD Unavailable Unavailable Ana, F Ferrara MD Unavailable Unavailable Ana, F Ferrara MD Unavailable Unavailable [place], F Brandin MD Unavailable Unavailable [place], F Brandin MD Unavailable Unavailable [place], F Brandin MD Unavailable Unavailable [place], F Ferrara MD Unavailable Unavailable Ana, F Ferrara MD Unavailable Unavailable Ana, F Brandin [...] (ISADORA), M GRANT MD Unavailable Unavailab le VE (ISADORA), M GRANT MD Unavailable Unavailab le [...] is protected by Article 27-F of the [place] Public Health law. If you continue you may have access to information: Regarding HIV / AIDS; Provided by facilities licensed or operated by the [facility] Office of Mental Health; or Provided by the [facility] Office for People With Developmental Disabilities. If such information is present, then the following [facility] mandated warning applies: This information has [...] law may result in a fine or nursing home sentence or both. A general authorization for the release of medical or other information is NOT sufficient authorization for further disc losure. Family History Family Member Name Family Member Gender Family Member Status Date o f Status Description Data Source(s) Unknown Unknown Problem [facility] ([employer]) Unknown Female Problem [facility] ([facility], ) Encounters Encounter Providers Location Date Indications Data Source(s ) Unknown [id number] [facility] [address] 08/24/2020 12:00:00 AM EST eCW1 ([facility]) Unknown [address] [facility] [address] 08/18/2020 12:00:00 AM EST eCW1 ([facility]) Outpatient Attender: Brandin Grimes 1 02:45:00 PM EDT MEDENT ([facility] ) Attender: GRANT TUCKER ([place]) MDReferrer: Cammei Humphries MD 02/13/2020 08:20:07 PM EDT [facility] Attender: GRANT CABRERA) MDReferrer: Cammie Humphries MD 02/13/2020 08:20:07 PM EDT [facility] Outpatient Attender: Brandin Grimes 0 01/27/2020 03:00:00 PM EDT MED[facility] ([facility] ) Outpatient Referrer: GRANT TUCKER MD [...] Grimes 0 11/22/2019 02:30:00 PM EDT MEDENT ([facility] ) Outpatient Referrer: [id number] NR 11/03/2019 11:04:00 AM EDT [facility] Attender: GRANT CABRERA) MDReferrer: Cammie Humphries MD 10/18/2019 08:20:03 PM EDT [facility] Attender: GRANT TUCKER ([place]) MDReferrer: Cammie Humphries MD 10/18/2019 08:20:03 PM EDT [facility] Attender: GRANT TUCKER ([place]) MDReferrer: Cammie Humphries MD 09/18/2019 08:20:02 PM EST [facility] Attender: GRANT TUCKER ([place]) MDReferrer: Cammie Humphries MD 09/18/2019 08:20:02 PM EST [facility] Outpatient Attender: Brandin Grimes 0 09/12/2019 09:20:00 AM EST [facility] ([facility] ) Outpatient Referrer: [id number] NR 09/11/2019 10:16:00 AM EST [facility] Outpatient Referrer: [id number] NR 08/29/2019 03:40:00 PM EST [facility] Inpatient Attender: Ok Krishnan aneudy: Thaddeus Roberto MDAdmitter: Ok Hester MD [id number] 08/26/2019 04:01:00 PM EST - 09/03/2019 10:42:00 AM EST [facility] Patient discharged. Medications Medication Brand Name Start Date Product Form Dose Route Admi nistrative Instructions Pharmacy Instructions Status Indications Reaction Description Data Source(s) 10-325 mg 08/22/2020 12:00:00 AM EST tablet 20 TAKE ONE TABLET BY MOUTH TWICE A DAY NEEDED FOR PAIN MAXIMUM DAILY DOSE = 2 TAKE ONE TABLET BY MOUTH TWICE A DAY NEEDED FOR PAIN MAXIMUM DAILY DOSE = 2 SOLD: 08/22/2020 [facility] 1 gram 08/20/2020 12:00:00 AM EST tablet 120 TAKE ONE TABLET BY MOUTH FOUR TIMES A DAY NEEDED TAKE ONE TABLET BY MOUTH FOUR TIMES A DAY NEEDED SO LD: 08/22/2020 [facility] 500 mg 08/16/2020 12:00:00 AM EST tablet 5 TAKE ONE TABLET BY MOUTH EVERY DAY FOR 5 DAYS TAKE ONE TABLET BY MOUTH EVERY DAY FOR 5 DAYS SOLD: 08/16/2020 [facility] Esomeprazole 40 MG Delayed Release Oral Capsule ESOMEPRAZOLE MAGNESIUM 07/21/2020 12:00:00 AM EST capsule,delayed release(DR/EC) 60 TAKE ONE CAPSULE BY MOUTH TWICE A DAY TAKE ONE CAPSULE BY MOUTH TWICE A DAY SOLD: 07/23/2020 [facility] 40 mg 07/21/2020 12:00:00 AM EST capsule,delayed release (DR/EC) 60 TAKE ONE CAPSULE BY MOUTH TWICE A DAY TAKE ONE CAPSULE BY MOUTH TWICE A DAY SOLD: 08/22/2020 [facility] 1,000 mcg 07/17/2020 12:00:00 AM [...] 01/27/2020 12:00:00 AM EDT ORAL active MEDENT ([facility]) 500 mg 01/27/2020 12:00:00 AM EDT tablet 180 TAKE ONE TABLET BY MOUTH EVERY MORNING AND 2 TABLETS AT SUPPER TAKE ONE TABLET BY MOUTH EVERY MORNING A ND 2 TABLETS AT SUPPER SOLD: 01/27/2020 [facility] Ondansetron 4 MG Oral Tablet Ondansetron HCL 01/27/2020 12:00:00 AM EDT active MEDENT ([facility]) Metformin hydrochloride 500 MG Oral Tablet METFORMIN HCL 01/27/2020 12:00:00 AM EDT tablet 180 TAKE ONE TABLET BY MOUTH ROSHAN RY MORNING AND 2 TABLETS AT SUPPER TAKE ONE TABLET BY MOUTH EVERY MORNING AND 2 TABLETS AT SUPPER SOLD: 05/23/2020 [facility] 500 mg 01/27/2020 12:00:00 AM EDT tablet 180 TAKE ONE TABLET BY MOUTH EVERY MORNING AND 2 TABLETS AT SUPPER TAKE ONE TABLET BY MOUTH EVERY MORNING A ND 2 TABLETS AT SUPPER SOLD: 07/23/2020 [facility] Esomeprazole 40 MG Delayed Release Oral Capsule ESOMEPRAZOLE MAGNESIUM 01/22/2020 12:00:00 AM EDT capsule,delayed release(DR/EC) 90 TAKE ONE CAPSULE BY MOUTH EVERY DAY WHILE ON PREDNISONE TAKE ONE CAPSULE BY MOUTH EVERY DAY LEATHAIL E ON PREDNISONE SOLD: 04/25/2020 [facility] 40 mg 01/22/2020 12:00:00 AM EDT capsule,delayed release (DR/EC) 90 TAKE ONE CAPSULE BY MOUTH EVERY DAY WHILE ON PREDNISONE TAKE ONE CAPSULE BY MOUTH EVERY DAY WHILE ON PREDNISONE SOLD: 01/27/2020 [facility] 40 mg 12/31/2019 12:00:00 AM EDT capsule,delayed release (DR/EC) 30 TAKE ONE CAPSULE BY MOUTH EVERY DAY WHILE ON PREDNISONE TAKE ONE CAPSULE BY MOUTH EVERY DAY WHILE ON PREDNISONE SOLD: 12/31/2019 [facility] Esomeprazole 40 MG Delayed Release Oral Capsule Esomeprazole Magnesium 12/31/2019 12:00:00 AM EDT ORAL active MEDENT ([facility]) 2.5 mg 12/03/2019 12:00:00 AM EDT [...] MG/Dose) 11/22/2019 12:00:00 AM EDT active MEDENT ([facility]) 125 mg 11/18/2019 12:00:00 AM EDT [...] DAILY THEN 1 TABLET DAILY SOLD: 11/15/2019 [facility] Sulfamethoxazole 800 MG / Trimethoprim 160 MG Oral Tab let Sulfamethoxazole/Trimethoprim DS 09/20/2019 12:00:00 AM EST ORAL completed MEDENT ([facility]) 800-160 mg 09/20/2019 12:00:00 AM EST tablet 10 TAKE ONE TABLET BY MOUTH TWICE A DAY FOR 5 DAYS TAKE ONE TABLET BY MOUTH TWICE A DAY FOR 5 DAYS SOLD: 09/20/2019 [facility] NITROFURANTOIN, MACROCRYSTALS 100 MG Oral Capsule Nitrofuran toin Macrocrystal 09/13/2019 12:00:00 AM EST ORAL completed [facility] ([facility]) 100 mg 09/13/2019 12:00:00 AM EST capsule 6 TAKE 1 CAPSULE BY MOUTH TWICE DAILY FOR 3 DAYS TAKE 1 CAPSULE BY MOUTH TWICE DAILY FOR 3 DAYS SOLD: 0 09/13/2019 [facility] Prednisone 10 MG Oral Tablet Prednisone 09/12/2019 12:00:00 AM EST active MEDENT ([facility]) Ergocalciferol 2000 UNT Oral Tablet Vitamin D2 09/12/2019 12:00:00 AM EST active MED[facility] ([facility]) 50 mg 09/05/2019 12:00:00 AM EST tablet 120 TAKE FOUR TABLETS BY MOUTH EVERY DAY TAKE FOUR TABLETS BY MOUTH EVERY DAY SOLD: 11/19/2019 [facility] 50 mg 09/05/2019 12:00:00 AM EST tablet 120 TAKE FOUR TABLETS BY MOUTH EVERY DAY TAKE FOUR TABLETS BY MOUTH EVERY DAY SOLD: 09/11/2019 [facility] 100 mg 09/04/2019 12:00:00 AM EST tablet 7 TAKE ONE TABLET BY MOUTH EVERY DAY FOR 7 DAYS TAKE ONE TABLET BY MOUTH EVERY DAY FOR 7 DAYS SOLD: 09/04/2019 [facility] Prednisone 10 MG Oral Tablet predniSONE (DELTASONE) ta blet 10 mg predniSONE (DELTASONE) tablet 10 mg 09/03/2019 09:00:00 AM EST 10 mg Oral active 10 mg, Oral, Daily, First dose on Mon09/03/19 at 0900 [facility] Medication administered onsite Acetaminophen 325 MG / Hydrocodone Lisa trate 5 MG Oral Tablet HYDROcodone- acetaminophen (NORCO) 5-325 MG per tablet HYDROcodone-acetaminophen (NORCO) 5- 325 MG per tablet 09/03/2019 12:00:00 AM EST 1 {tbl} Oral active Take 1 tablet by mouth every 6 (six) hours as needed for pain Max Daily Amount: 4 tablets [facility] 5-325 mg 09/03/2019 12:00:00 AM EST tablet 5 TAKE ONE TABLET BY MOUTH EVERY 6 HOURS NEEDED FOR PAIN, MAXIMUM DAILY DOSE = 4 TAKE ONE TABLET BY MOUTH EVERY 6 HOURS NEEDED FOR PAIN, MAXIMUM DAILY DOSE = 4 SOLD: 09/03/2019 [facility] potassium chloride SA (K-DUR,KLOR-CON) CR tablet 40 mEq [id number] 09/02/2019 05:00:00 PM EST 40 meq Oral completed 40 mEq, Oral, Once, Mon09/02/19 at 1700, For 1 dose [facility] Medication administered onsite Hydrocortisone 50 MG/ML Injectable Solut ion hydrocortisone sodium succinate (Solu-CORTEF) injection 75 mg hydrocortisone sodium succinate (Solu-CO RTEF) injection 75 mg 09/02/2019 09:00:00 AM EST 75 mg Intravenous aborted 75 mg, Intravenous, Daily, First dose on Mon09/02/19 at 0900, Post-op [facility] Medication administered onsite Acetaminophen 325 MG / Oxycodone Hydroch loride 5 MG Oral Tablet oxyCODONE- acetaminophen (PERCOCET) 5-325 MG 1-2 tablet oxyCODONE-acetaminophen (PERCOCET) 5-325 MG 1-2 tablet 09/02/2019 07:23:48 AM EST Oral active 1-2 tablet, Oral, Every 4 hours PRN, moderate pain (4-6), severe pain (7-10), Starting Mon09/02/19 at 0723, For 7 days [facility] Medication administered onsite Insulin Glargine 100 UNT/ML Injectable S olution [Lantus] insulin glargine (LANTUS) injection 10 Units insulin glargine (LANTUS) injection 10 Units 09/01/2019 09:00:00 PM EST 10 U Subcutaneous active 10 Units, Subcutaneous, Nightly (Lantus), First dose on 09/01/19 at 2100
Basal Insulin (Lantus) Adjustments based on AM Blood GlucoseBlood GlucoseAdjustmentLess than 70 mg/dl Nursing to initiate hypoglycemia [id number] to 100 mg/dl Pharmacy to decrease total daily d ose by 20%101 to 200 mg/dl No Change
[facility] Medication administered onsite Saccharomyces boulardii 250 MG Oral Caps ule saccharomyces boulardii (FLORASTOR) capsule 250 mg saccharomyces boulardii (FLORASTOR) capsule 250 mg 01:00:00 PM EST 250 mg Oral active 250 mg, Oral, 2 times daily, First dose on 09/01/19 at 1300
Swallow whole.DO NOT OPEN CAPSULE
[facility] Medication administered onsite potassium chloride SA (K-DUR,KLOR-CON) CR tablet 40 mEq 5528 9-359-09/01/2019 12:00:00 PM EST 40 meq Oral completed 40 mEq, Oral, Once, 09/01/19 at 1200, For 1 dose [facility] Medication administered onsite pantoprazole 4 MG/ML [...] 0.9% NaCl and push over 2 minutes.
[facility] Stress Ulcer Prophylaxis Gastroesophageal Reflux Disease Medication administered onsite sodium chloride 0.9% (NS) bolus 1,000 mL [id number] 09/01/2019 10:00:00 AM EST 1000 mL Intravenous completed 1, 000 mL, Intravenous, Administer over 2 Hours, Once, 09/01/19 at 1000, For 1 dose [facility] Medication administered onsite Hydrocortisone 50 MG/ML Injectable Solut ion hydrocortisone sodium succinate (Solu-CORTEF) injection 75 mg hydrocortisone sodium succinate (Solu-CO RTEF) injection 75 mg 09/01/2019 09:00:00 AM EST 75 mg Intravenous aborted 75 mg, Intravenous, Daily, First dose on 09/01/19 at 0900, Post-op [facility] Medication administered onsite potassium chloride SA (K-DUR,KLOR-CON) CR tablet 40 mEq [id number] 08/31/2019 11:00:00 AM EST 40 meq Oral completed 40 mEq, Oral, Once, 08/31/19 at 1100, For 1 dose [facility] Medication administered onsite Albuterol 0.83 MG/ML Inhalant Solution a lbuterol (PROVENTIL) nebulizer solution 2.5 mg albuterol (PROVENTIL) nebulizer solution 2.5 mg 2019 09:23:40 PM EST 2.5 mg active 2.5 mg, Nebulization, Every 2 hour PRN, wheezing, shortness of breath, Starting Keri 08/29/19 at 2123 [facility] Medication administered onsite morphine DIGITAL MEDIA ANALYST 1 mg/mL 08/29/2019 07:00:00 PM EST Intraven ous aborted Intravenous, Continuous, Starting Keri 08/29/19 at 1900, For 138 hours, Post-op [facility] Medication administered onsite Hydrocortisone 50 MG/ML Injectable Solut ion hydrocortisone sodium succinate (Solu-CORTEF) injection 100 mg hydrocortisone sodium succinate (Solu-CO RTEF) injection 100 mg 08/29/2019 09:00:00 AM EST 100 mg Intravenous aborted 100 mg, Intravenous, Daily, First dose on Keri 08/29/19 at 0900, Post-op [facility] Medication administered onsite Hydrochlorothiazide 12.5 MG Oral Tablet hydrochlorothiazide (HYDRODIURIL) tablet 12.5 mg hydrochlorothiazide (HYDRODIURIL) tablet 12.5 mg 08/29 09:00:00 AM EST 12.5 mg Oral active 12.5 mg, Oral, Daily, First dose on Keri 08/29/19 at 0900, Post-op
Hold for SBP <120
[facility] Medication administered onsite Famotidine (PEPCID) injection 20 mg [id number] 08/28/2019 09:00:0 0 PM EST 20 mg Intravenous aborted Stress Ulcer Pr ophylaxisGastroesophageal Reflux Disease 20 mg, Intravenous, 2 times daily, First dose on Mon08/28/19 at 2100, Post-op
For IV Push - Dilute with 10 mL of 0.9% NaCl and push over 2 minutes.
[facility] Stress Ulcer Prophylaxis Gastroesophageal Reflux Disease Medication administered onsite morphine DIGITAL MEDIA ANALYST 1 mg/mL 08/28/2019 05:00:00 PM EST Intraven ous aborted Intravenous, Continuous, Starting Mon08/28/19 at 1700, For 165 hours, Post-op [facility] Medication administered onsite morphine 1 mg/ml DIGITAL MEDIA ANALYST bolus 4 mg [id number] 08/28/2019 03:00:[address] 4 mg Intravenous completed 4 mg, Intrave nous, Once, Mon08/28/19 at 1500, For 1 dose [facility] Medication administered onsite Metronidazole 5 MG/ML Injectable Solution metroNIDAZOL E (FLAGYL) IVPB 500 mg metroNIDAZOLE (FLAGYL) IVPB 500 mg 08/28/2019 03:00:00 PM EST 50 0 mg Intravenous completed Perioperative Pharmacoprophylaxis 500 mg, Intravenous, Administer over 60 Minutes, Every 8 hours (relative), First dose on Mon08/28/19 at 1500, For 24 hours, Post-op [facility] Perioperative Pharmacoprophylaxis Medication administered onsite Acetaminophen 325 MG Oral Tablet acetaminophen (TYLENO L) 325 MG tablet 650 mg acetaminophen (TYLENOL) 325 MG tablet 650 mg 08/28/2019 02:00:00 PM EST 650 mg Oral active 650 mg, Or al, Every 6 hours (relative), First dose on Mon08/28/19 at 1400, Post-op
"Maximum dose of acetaminophen is 4,000 mg from all sources in 24 hours."
[facility] Medication administered onsite cefazolin (ANCEF) injection 2 g 08/28/2019 02:00:00 PM EST 2 g Intravenous completed Perioperative Pharmacoprophylaxis 2 g, Intravenous, Administer over 6 Minutes, Every 8 hours (relative), First dose on Mon08/28/19 at 1400, For 24 hours, Post-op
RN may administer IV push or infuse this medication through syringe adapter set ref [id number]. Flush line after use
[facility] Perioperative Pharmacoprophylaxis Medication administered onsite dextrose 5 % and sodium chloride 0.45 % with KCl 20 mEq/L in fusion [id number] 08/28/2019 02:00:00 PM EST Intravenous active at 75 mL/hr, Intravenous, Continuous, Starting Mon08/28/19 at 1400, Post-op
This is a "Triggered Filled Infusion" and is automatically sent based on the current rate documented in the flow sheets
[facility] Medication administered onsite morphine DIGITAL MEDIA ANALYST 1 mg/mL 08/28/2019 02:00:00 PM EST Intraven ous aborted Intravenous, Continuous, Starting Mon08/28/19 at 1400, For 7 days, Post-op [facility] Medication administered onsite 1 ML Ketorolac Tromethamine 15 MG/ML Car tridge ketorolac (TORADOL) injection 15 mg ketorolac (TORADOL) injection 15 mg 08/28/2019 02:00:00 PM EST 15 mg Intravenous completed 15 mg, Intrav enous, Once, Mon08/28/19 at 1400, For 1 dose [facility] Medication administered onsite alvimopan 12 MG [...] (>7 days) treatment prior to surgery: No [facility] Medication administered onsite Regular Insulin, Human 100 UNT/ML Inject able Solution insulin regular (HumuLIN,NovoLIN) injection 7 Units insulin regular (HumuLIN,NovoLIN) inject ion 7 Units 08/28/2019 01:00:00 PM EST 7 U Intravenous compl eted 7 Units, Intravenous, Once, Mon08/28/19 at 1300, For 1 dose, PACU (only) [facility] Medication administered onsite HYDROmorphone (DILAUDID) injection 0.5 mg [id number] 08/28/2019 11:52:54 AM EST 0.5 mg Intravenous aborted 0.5 mg, Intravenous, Every 5 min PRN, severe pain (7-10), Starting Mon08/28/19 at 1152, For 5 doses, PACU (only) [facility] Medication administered onsite fentaNYL Citrate (PF) (SUBLIMAZE) injection 25 mcg [id number] 08/28/2019 11:52:54 AM EST 25 ug Intravenous aborted 25 mcg, Intravenous, Every 5 min PRN, moderate pain (4 to 6), Starting Mon08/28/19 at 1152, For 5 doses, PACU (only) [facility] Medication administered onsite alvimopan 12 MG Oral Capsule alvimopan (ENTEREG) capsu le 12 mg alvimopan (ENTEREG) capsule 12 mg 08/28/2019 09:00:00 AM EST 12 mg Oral completed 12 mg, Oral, call center receptionist, Mon08/28/19 at 090 0, For 1 dose, [...] (>7 days) treatment prior to surgery: No [facility] Medication administered onsite Hydrocortisone 20 MG Oral Tablet hydrocortisone (RAHEEL F) tablet 100 mg hydrocortisone (CORTEF) tablet 100 mg 08/28/2019 06:00:00 AM EST 10 0 mg Oral completed 100 mg, Oral, Once, Mon at 0600, For 1 dose [facility] Medication administered onsite Insulin Glargine 100 UNT/ML Injectable S olution [Lantus] insulin glargine (LANTUS) injection 5 Units insulin glargine (LANTUS) injection 5 Units 08/27/2019 10:00:00 PM EST 5 U Subcutaneous aborted 5 Units, Subcutaneous, Nightly (Lantus), First dose on Mon08/27/19 at 2200
Basal Insulin (Lantus) Adjustments based on AM Blood GlucoseBlood GlucoseAdjustmentLess than 70 mg/dl Nursing to initiate hypoglycemia [id number] to 100 mg/dl Pharmacy to decrease total daily d ose by 20%101 to 200 mg/dl No Change
[facility] Medication administered onsite Insulin Lispro 100 UNT/ML Injectable Tracee ution insulin lispro (HumaLOG) injection 1-12 Units insulin lispro (HumaLOG) injection 1-12 Units 08/27/19 05:00:00 PM EST Subcutaneous active 1-1 2 Units, Subcutaneous, MEALSS, First dose on Mon08/27/19 at 1700
AVERAGE 6 Units Nutritional and Correction Insulin ScaleBlood Glucose (mg/dl) <70 start hypoglycemia protocolGlucoseEats >=50% Eats <50%Eats Nothing (mg/dl) of meal of mealor [id number] units 2 units 0 aakqw099- 1706 units 3 units 0 iabbh790-7522 units 4 units 1 ibqjz854- 2708 units 5 units 2 -1613 units 6 units 3 yblew155- 75987 units 7 units 4 eyfwq063-96361 units 8 units 5 units>420 call MD12 units 9 units 6 unitsTest glucose within 30 minutes of insulin administration.Administer insulin within 15 minutes (before or after) of the patient starting to eat.For patients that are NPO, use theNPO (correction) scale to cover POC glucose at 08:00, 12:00, 17:00.
[facility] Medication administered onsite Hydrochlorothiazide 12.5 MG Oral Tablet hydrochlorothiazide (HYDRODIURIL) tablet 12.5 mg hydrochlorothiazide (HYDRODIURIL) tablet 12.5 mg 08/27 04:00:00 PM EST 12.5 mg Oral aborted 12.5 mg, Oral, Daily, First dose on Mon08/27/19 at 1600
Hold for SBP <120
[facility] Medication administered onsite Prednisone 10 MG Oral Tablet predniSONE (DELTASONE) ta blet 10 mg predniSONE (DELTASONE) tablet 10 mg 08/27/2019 04:00:00 PM EST 10 mg Oral aborted 10 mg, Oral, Daily, First dose on Mon08/27/19 at 1600 [facility] Medication administered onsite pantoprazole 40 MG Delayed Release Oral Tablet pantoprazole (PROTONIX) EC tablet 40 mg pantoprazole (PROTONIX) EC tablet 40 mg 08/27/2019 04:00:[address] 40 mg Oral aborted Gastroesophageal Reflux Diseas e 40 mg, Oral, Daily, Indications: Gastroesophageal Reflux Disease, First dose on Mon08/27/19 at 1600 [facility] Gastroesophageal Reflux Disease Medication administered onsite Dextromethorphan Hydrobromide 2 MG/ML / Guaifenesin 20 MG/ML Oral Solution guaifenesin-dextromethorphan (ROBITUSSIN DM) 100-10 MG/5ML syrup 5 mL guaifenesin-dextromethorphan (ROBITUSSIN DM) 100-10 MG/5ML syrup 5 mL 08/27/2019 03:47:40 PM EST 5 mL Oral active 5 mL, Oral, Every 4 hours PRN, other, cough, congestion, Starting Mon08/27/19 at 1547 [facility] Medication administered onsite hydrocortisone (CORTEF) tablet 75 mg 08/27/2019 03:00:00 PM EST 75 mg Oral completed 75 mg, Oral, Once, Mon at 1500, For 1 dose [facility] Medication administered onsite sodium chloride 0.9% (NS) infusion 0021-1442-57 08/27/2019 02:00:00 P M EST Intravenous aborted at 125 mL/hr, Intravenous, Continuous, Starting Mon08/27/19 at 1400 [facility] Medication administered onsite fluticasone (FLONASE) 50 MCG/ACT nasal spray 1 spray 0054-32 70-99 08/27/2019 01:43:36 PM EST 1 {spray} Nasal active 1 spray, Nasal, Daily PRN, congestion, allergies, Starting Mon08/27/19 at 1343 [facility] Medication administered onsite Calcium Carbonate 500 MG Chewable Tablet calcium carbonate (TUMS) chewable tablet 1,500 mg calcium carbonate (TUMS) chewable tablet 1,500 mg 08/08 01:42:30 PM EST 1500 mg Oral active 1,500 mg, Oral, Daily PRN, heartburn, Starting Mon08/27/19 at 1342 [facility] Medication administered onsite Metronidazole 5 MG/ML Injectable Solution metroNIDAZOL E (FLAGYL) IVPB 500 mg metroNIDAZOLE (FLAGYL) IVPB 500 mg 08/27/2019 11:00:00 AM EST 50 0 mg Intravenous completed Perioperative Pharmacoprophylaxis 500 mg, Intravenous, Administer over 60 Minutes, call center receptionist to O.R., Mon08/27/19 at 1100, For 1 dose [facility] Perioperative Pharmacoprophylaxis Medication administered onsite Insulin [...] <50%Eats Nothing (mg/dl) of meal of mealor IBA83-5863 units 1 units 0 klqau804- 1703 units 2 units 0 ecqbw307-9529 units 2 units 1 odzba186- 2704 units 3 units 1 yuvdq271-6348 units 3 units 2 - 3705 units 4 units 2 wredn633-8823 units 4 units 3 units>420 call MD6 units 5 units 3 unitsTest glucose within 30 minutes of insulin administration.Administer insulin within 15 minutes (before or after) of the patient starting to eat.For patients that are NPO, use theNPO (correction) scale to cover POC glucose at 08:00, 12:00, 17:00.
[facility] Medication administered onsite heparin (porcine) injection 5,000 Units 53951-871-15 08/26/19 10:00:00 PM EST 5000 U Subcutaneous active 5,000 Units , Subcutaneous, Every 8 hours (scheduled), First dose on Mon08/26/19 at 2200
If platelet count is less than 100,000 or hematocrit is less than 25, or if there is a 5 point decrease in hematocrit, do not give the dose and call physician/designee.
[facility] Medication administered onsite normal saline flush 0.9 % injection 3 mL 92632-234-95 08/26/2019 10:00:00 PM EST 3 mL Intravenous active 3 mL , Intravenous, Every 8 hours (scheduled), First dose on Mon08/26/19 at 2200
flush per protocol, D/C Main IV fluid if appropriate
[facility] Medication administered onsite Methylprednisolone 40 MG/ML Injectable S olution methylPREDNISolone sodium succinate (Solu-MEDROL) injection 40 mg methylPREDNISolone sodium succinate (Solu-MEDROL) injection 40 mg 08/26/2019 09:00:00 PM EST 40 mg I ntravenous aborted 40 mg, Intraveno us, 2 times daily, First dose on Mon08/26/19 at 2100 [facility] Medication administered onsite pantoprazole 4 MG/ML Injectable Solution pantoprazole (PROTONIX) injection 40 mg pantoprazole (PROTONIX) injection 40 mg 08/26/2019 08:00:00 PM EST 40 mg Intravenous aborted Gastroesophageal Reflux Disease 40 mg, Intravenous, Daily, Indications: Gastroesophageal Reflux Disease, First dose on Mon08/26/19 at 2000
For IV Push - Dilute with 10 mL of 0.9% NaCl and push over 2 minutes.
[facility] Gastroesophageal Reflux Disease Medication administered onsite dextrose 5 % and sodium chloride 0.9 % infusion [id number] 08/26/2019 07:00:00 PM EST Intravenous aborted at 1 25 mL/hr, Intravenous, Continuous, Starting 08/26/19 at 1900 [facility] Medication administered onsite ondansetron (ZOFRAN) injection 4 mg 60480-324-10 08/26/2019 06:22:2 9 PM EST 4 mg Intravenous active 4 mg, In travenous, Every 4 hours PRN, nausea, vomiting, Starting 08/26/19 at 1822 [facility] Medication administered onsite Morphine Sulfate (PF) injection 4 mg 4534-4329-57 08/26/2019 06:22: 01 PM EST 4 mg Intravenous aborted 4 mg, In travenous, Every 4 hours PRN, severe pain (7-10), Starting Mon08/26/19 at 1822, For 7 days
If PO pain meds are not sufficient for pain control
[facility] Medication administered onsite cefdinir 300 MG Oral Capsule cefdinir (OMNICEF) 300 MG capsule cefdinir (OMNICEF) 300 MG capsule 08/18/2019 12:00:00 AM EST 300 mg Oral aborted Take 300 mg by mouth 2 (two) times a day X 4 days [facility] Esomeprazole 40 MG Delayed Release Oral Capsule [Nexium] Nex ium 07/16/2019 12:00:00 AM EST ORAL active M [facility] ([facility]) Hydrochlorothiazide 25 MG Oral Tablet Hydrochlorothiazide 12:00:00 AM EST ORAL completed [facility] ([facility]) 40 mg 07/16/2019 12:00:00 AM EST capsule,delayed release (DR/EC) 30 TAKE ONE CAPSULE BY MOUTH EVERY DAY WHILE ON PREDNISONE TAKE ONE CAPSULE BY MOUTH EVERY DAY WHILE ON PREDNISONE SOLD: 11/06/2019 [facility] Vitamin B 12 1 MG Oral Tablet Vitamin B-12 07/16/2019 12:00:00 AM EST ORAL active [facility] ([facility]) 25 mg 07/16/2019 12:00:00 AM EST tablet 30 TAKE ONE TABLET BY MOUTH EVERY DAY TAKE ONE TABLET BY MOUTH EVERY DAY SOLD: 11/06/2019 [facility] 1,000 mcg 07/16/2019 12:00:00 AM EST [...] BY MOUTH EVERY DAY NEEDED SOLD: 11/06/2019 [facility] 2.5 mg 06/15/2019 12:00:00 AM EST [...] Prednisone 06/04/2019 12:00:00 AM EDT completed [facility]) 10 mg 05/18/2019 12:00:00 AM EDT capsule 200 TAKE 1-2 CAPSULES BY MOUTH FOUR TIMES A DAY NEEDED TAKE 1-2 CAPSULES BY MOUTH FOUR TIMES A DAY NEEDED SOLD: 07/13/2019 [facility] Probiotic Product (PROBIOTIC DAILY PO) Oral aborted Take by mouth [facility] Ergocalciferol 96357 UNT Oral Capsule vi tamin D, Ergocalciferol, 36597 UNITS CAPS vitamin D, Ergocalciferol, 16574 UNITS CAPS 1 {capsule} Oral aborted Take 1 capsule by mouth once a w hoopa [facility] certolizumab pegol 200 MG Injection Certolizumab Pegol (CIMZIA) 2 X 200 MG KIT Certolizumab Pegol (CIMZIA) 2 X 200 MG KIT Subcutaneous aborted Inject under the skin every 30 (thirty) days [facility] Multiple Vitamin (MULTIVITAMIN) tablet 77795-083-08 1 {t bl} Oral aborted Take 1 tablet by mouth [facility] Insurance Providers Payer name Policy type / Coverage type Policy ID Covered libertarian ID Covered libertarian's relationship to ghotra Policy Ghotra Plan Information [place] 302/307 [id number] SP [id number] [facility] POS [id number] [facility] [id number] 0 [id number] [facility] [id number] 0 [id number] [facility] POS [id number] [facility] [id number] 0 [id number] [employer] BCBS B [id number] S VYS [id number] EXCELLUS BCBS [id number] Adrienne VYS [id number] EXCELLUS BCBS [id number] [employer] [place] PPO 302/307 [id number] SP [id number] [facility] PPO POS [id number] EXCELLUS BLUE CROSS BLUE SHIELD HEA [id number] S [id number] ANSI-Commercial [id number] ANSI-Commercial [id number] [place] PPO 302/307 [id number] SP [id number] BS iFACETS Medigap Part B [id number] Self V [id number] [facility] [place] Commercial [id number] Self [id number] ANSI-Commercial [id number] ANSI-Commercial [id number] BS iFACETS Commercial [id number] Self [id number] [facility] [place] Commercial [id number] Self [id number] EXCELLUS BCBS PI PI MVP [id number] Adrienne [id number] MVP PREMIER EXCHANGE [id number] Adrienne [id number] [place] PPO 302/307 [id number] SP [id number] BS Erica Trad/MX Commercial 802 Self 802 [facility] Commercial [place] HDHP Self L [place] HDHP BS [place] Trad/MX Commercial 802 Self 802 [employer] BCBS Health Maintenance Organization (HMO) Self MVP PREMIER EXCHANGE [id number] Adrienne [id number] [facility] [id number] SP [id number] MVP HEALTH PLAN O [id number] S [id number] MVP HEALTH PLAN O [id number] S [id number] MVP PREMIER EXCHANGE [id number] Adrienne [id number] [facility] O [id number] S [id number] [facility] PHY [id number] SP [id number] [facility]/PPO/POS [id number] [facility]/PPO/POS/EPO/OTHER [id number] BCBS OF [place] 306/806 [id number] SP [id number] BCBS [place] PPO 302/307 [id number] SP [id number] BCBS [place] O [id number] S [id number] BCBS [place] [id number] S [id number] Problems, Conditions, and Diagnoses Code Display Name Description Problem Type Effective Dates Data Source(s) N20.0 Kidney stone Kidney stone Problem 08/24/2020 12:00:00 A M EST [email or web address] (Formerly [facility]) Z01.818 Pre-procedure evaluation check Preop testing Problem 08/24/2020 12:00:00 AM [place] [address] (Formerly [facility]) N39.0 Urinary tract infectious disease UTI (urinary tract in fection) Problem 08/24/2020 12:00:00 AM [place] [address] ([facility]ly [facility]) G47.30 Sleep apnea Sleep apnea [id number] 09/01/2019 12:00:00 AM [facility] E66.9 Obesity Obesity [id number] 09/01/2019 12:00:00 AM [facility] E11.9 Diabetes Diabetes [id number] 08/26/2019 12:00:00 AM [facility] K56.609 SBO (small bowel obstruction) SBO (small bowel obstruc tion) [id number] 08/26/2019 12:00:00 AM [facility] K50.90 Crohn's disease Crohn's disease [id number] 08/26/2019 12:0 0:00 AM [facility] K50.919 Crohn's disease, unspecified, with unspe cified complications Crohn's disease, unspecified, with unspe Diagnosis 08/26/2019 04:01:00 PM [facility] K50.90 Crohn's disease, unspecified, without co mplications Crohn's disease, unspecified, without co Diagnosis 08/26/2019 04:01:00 PM [facility] K56.609 Unspecified intestinal obstr uction, unspecified as to partial versus complete obstruction Unspecified intestinal obstruction, unsp Diagnosis 08/26/2019 04:01:00 PM [facility] Surgeries/Procedures Procedure Description Date Indications Data Source(s) Bone Mineral Density Test 10/25/2019 12:00:00 AM EDT [facility] ([facility]) GLUC BLD GLUC MNTR DEV CLEARED FDA SPEC HOME USE POCT GLUCOSE Routine 09/03/2019 8:22 AM EST 09/03/2019 01:22:00 PM [facility] GLUC BLD GLUC MNTR DEV CLEARED FDA SPEC HOME USE POCT GLUCOSE Routine 09/02/2019 5:26 PM EST 09/02/2019 10:26:00 PM EST [facility] GLUC BLD GLUC MNTR DEV CLEARED FDA SPEC HOME USE POCT GLUCOSE Routine 09/02/2019 1:49 PM EST 09/02/2019 06:49:00 PM EST [facility] GLUC BLD GLUC MNTR DEV CLEARED FDA SPEC HOME USE POCT GLUCOSE Routine 09/02/2019 8:28 AM EST 09/02/2019 01:28:00 PM EST [facility] BLOOD COUNT COMPLETE AUTOMATED CBC Routine 09/02/2019 7:30 A M EST 09/02/2019 12:30:00 PM [facility] MAGNESIUM MAGNESIUM Routine 09/02/2019 7:30 AM EST 09/02/2019 12:30:00 PM [facility] COMPREHENSIVE METABOLIC PANEL COMPREHENSIVE METABOLIC PANEL Rou dominique 09/02/2019 7:30 AM EST 09/02/2019 12:30:00 PM [facility] GLUC BLD GLUC MNTR DEV CLEARED FDA SPEC HOME USE POCT GLUCOSE Routine 09/01/2019 5:39 PM EST 09/01/2019 10:39:00 PM EST [facility] GLUC BLD GLUC MNTR DEV CLEARED FDA SPEC HOME USE POCT GLUCOSE Routine 09/01/2019 10:24 AM EST 09/01/2019 03:24:00 PM EST [facility] BLOOD COUNT COMPLETE AUTOMATED CBC Routine 09/01/2019 8:25 A M EST 09/01/2019 01:25:00 PM EST [facility] MAGNESIUM MAGNESIUM Routine 09/01/2019 8:25 AM EST 09/01/2019 01:25:00 PM [facility] BASIC METABOLIC PANEL CALCIUM TOTAL BASIC METABOLIC PANEL Routi ne 09/01/2019 8:25 AM EST 09/01/2019 01:25:00 PM [facility] GLUC BLD GLUC MNTR DEV CLEARED FDA SPEC HOME USE POCT GLUCOSE Routine 08/31/2019 10:14 PM EST 09/01/2019 03:14:00 AM [facility] GLUC BLD GLUC MNTR DEV CLEARED FDA SPEC HOME USE POCT GLUCOSE Routine 08/31/2019 4:57 PM EST 08/31/2019 09:57:00 PM EST [facility] GLUC BLD GLUC MNTR DEV CLEARED FDA SPEC HOME USE POCT GLUCOSE Routine 08/31/2019 11:45 AM EST 08/31/2019 04:45:00 PM EST [facility] GLUC BLD GLUC MNTR DEV CLEARED FDA SPEC HOME USE POCT GLUCOSE Routine 08/31/2019 9:03 AM EST 08/31/2019 02:03:00 PM [facility] BLOOD COUNT COMPLETE AUTOMATED CBC Timed 08/31/2019 6:24 A M EST 08/31/2019 11:24:00 AM [facility] MAGNESIUM MAGNESIUM Add-On 08/31/2019 6:24 AM EST 08/31/2019 11:24:00 AM [facility] BASIC METABOLIC PANEL CALCIUM TOTAL BASIC METABOLIC PANEL Timed 08/31/2019 6:24 AM EST 08/31/2019 11:24:00 AM [facility] GLUC BLD GLUC MNTR DEV CLEARED FDA SPEC HOME USE POCT GLUCOSE Routine 08/30/2019 5:25 PM EST 08/30/2019 10:25:00 PM [facility] GLUC BLD GLUC MNTR DEV CLEARED FDA SPEC HOME USE POCT GLUCOSE Routine 08/30/2019 12:35 PM EST 08/30/2019 05:35:00 PM [facility] GLUC BLD GLUC MNTR DEV CLEARED FDA SPEC HOME USE POCT GLUCOSE Routine 08/29/2019 6:56 PM EST 08/29/2019 11:56:00 PM [facility] GLUC BLD GLUC MNTR DEV CLEARED FDA SPEC HOME USE POCT GLUCOSE Routine 08/29/2019 3:45 PM EST 08/29/2019 08:45:00 PM [facility] GLUC BLD GLUC MNTR DEV CLEARED FDA SPEC HOME USE POCT GLUCOSE Routine 08/29/2019 9:03 AM EST 08/29/2019 02:03:00 PM EST [facility] BLOOD COUNT COMPLETE AUTOMATED CBC Routine 08/29/2019 7:27 A M EST 08/29/2019 12:27:00 PM EST [facility] BASIC METABOLIC PANEL CALCIUM TOTAL BASIC METABOLIC PANEL Timed 08/29/2019 7:27 AM EST 08/29/2019 12:27:00 PM EST [facility] GLUC BLD GLUC MNTR DEV CLEARED FDA SPEC HOME USE POCT GLUCOSE Routine 08/28/2019 7:12 PM EST 08/29/2019 12:12:00 AM EST [facility] GLUC BLD GLUC MNTR DEV CLEARED FDA SPEC HOME USE POCT GLUCOSE Routine 08/28/2019 1:40 PM EST 08/28/2019 06:40:00 PM EST [facility] GLUC BLD GLUC MNTR DEV CLEARED FDA SPEC HOME USE POCT GLUCOSE Routine 08/28/2019 12:04 PM EST 08/28/2019 05:04:00 PM EST [facility] RESECTION, SMALL INTESTINE, LAPAROSCOPIC RESECTION, S MALL INTESTINE, LAPAROSCOPIC 08/28/2019 9:37 AM EST SMALL BOWEL OBSTRUCTION; crohn's disease 08/28/2019 02 :37:00 PM EST - 08/28/2019 05:25:00 PM EST [facility] GLUC BLD GLUC MNTR DEV CLEARED FDA SPEC HOME USE POCT GLUCOSE Routine 08/28/2019 8:21 AM EST 08/28/2019 01:21:00 PM [facility] BLOOD COUNT COMPLETE AUTOMATED CBC Routine 08/28/2019 6:02 A M EST 08/28/2019 11:02:00 AM [facility] GONADOTROPIN CHORIONIC QUALITATIVE HCG, SERUM, QUALITATIVE Rout ine 08/28/2019 6:02 AM EST 08/28/2019 11:02:00 AM EST [facility] BASIC METABOLIC PANEL CALCIUM TOTAL BASIC METABOLIC PANEL Routi ne 08/28/2019 6:02 AM EST 08/28/2019 11:02:00 AM EST [facility] GLUC BLD GLUC MNTR DEV CLEARED FDA SPEC HOME USE POCT GLUCOSE Routine 08/27/2019 8:31 PM EST 08/28/2019 01:31:00 AM [facility] COLECTOMY PRTL W/RMVL TERMINAL ILEUM&ILEOCOLOST 2019 12:00:00 AM EST [facility] ([facility]) GLUC BLD GLUC MNTR DEV CLEARED FDA SPEC HOME USE POCT GLUCOSE Routine 08/27/2019 5:43 PM EST 08/27/2019 10:43:00 PM EST [facility] ECG ROUTINE ECG W/LEAST 12 LDS TRCG ONLY W/O I&R ECG 12-LEAD Routine 08/27/2019 2:40 PM EST 08/27/2019 07:40:12 PM EST [facility] GLUC BLD GLUC MNTR DEV CLEARED FDA SPEC HOME USE POCT GLUCOSE Routine 08/27/2019 1:04 PM EST 08/27/2019 06:04:00 PM EST [facility] HEMOGLOBIN GLYCOSYLATED A1C HEMOGLOBIN A1C Add-On 08/27/2019 12:32 PM EST 08/27/2019 05:32:00 PM EST [facility] BLOOD TYPING ABO TYPE AND SCREEN Routine 08/27/2019 12:30 PM EST 08/27/2019 05:30:00 PM EST [facility] GLUC BLD GLUC MNTR DEV CLEARED FDA SPEC HOME USE POCT GLUCOSE Routine 08/27/2019 7:59 AM EST 08/27/2019 12:59:00 PM EST [facility] BLOOD COUNT COMPLETE AUTOMATED CBC Routine 08/27/2019 6:32 A M EST 08/27/2019 11:32:00 AM EST [facility] ALBUMIN SERUM PLASMA/WHOLE BLOOD ALBUMIN Add-On 08/27/2019 6:32 AM EST 08/27/2019 11:32:00 AM EST [facility] BASIC METABOLIC PANEL CALCIUM TOTAL BASIC METABOLIC PANEL Routi ne 08/27/2019 6:32 AM EST 08/27/2019 11:32:00 AM EST [facility] Results ID Date Data Source [id number] 08/16/2020 10:00:00 AM EST [facility] Name Value Range Interpretation Code Description Data Bren rce(s) Supporting Document(s) SARS coronavirus 2 RNA [Presence] in Res piratory specimen by CECE with probe detection POSITIVE [facility] This lab was ordered by [facility] a nd reported by [facility]. ID Date Data Source [id number] 08/02/2020 11:50:00 AM EST [facility] Name Value Range Interpretation Code Description Data Bren rce(s) Supporting Document(s) SARS coronavirus 2 RNA [Presence] in Res piratory specimen by CECE with probe detection [facility] This lab was ordered by [facility] a nd reported by [facility]. ID Date Data Source [id number] 05/29/2020 02:27:00 PM EDT [facility] ([facility]) Name Value Range Interpretation Code Description Data Bren rce(s) Supporting Document(s) C reactive protein [Mass/volume] in Serum or Plasma by High sensitivity method Laboratory test result 0.00-0.30 [facility] ([facility]) ID Date Data Source [id number] 05/29/2020 02:26:00 PM EDT [facility] Name Value Range Interpretation Code Description Data Bren rce(s) Supporting Document(s) Hemoglobin A1c/Hemoglobin.total in Blood 9.5 % [facility] ([facility]) Lab Result Notes: Pre-Diabetes 5.7 - 6.4 % Diabetes = or > 6.5% Glucose mean value [Mass/volume] in Blood Estimated fr om glycated hemoglobin 226 mg/dL 60-110 [facility] ID Date Data Source [id number] 05/29/2020 02:26:00 PM EDT [facility] ([facility]) Name Value Range Interpretation Code Description Data Bren rce(s) Supporting Document(s) Cholesterol in HDL [Mass/volume] in Serum or Plasma 48 mg/dL 35-60 [facility] ([facility]) Cholesterol [Mass/volume] in Serum or Plasma 161 mg/dL 131-200 [facility] ([facility]) Triglyceride [Mass/volume] in Serum or Plasma 89 mg/dL 30-150 [facility] ([facility]) Cholesterol in LDL [Mass/volume] in Serum or Plasma by calcu lation 95 CALC 50-159 [facility] ID Date Data Source [id number] 05/29/2020 02:26:00 PM EDT [facility] ([facility]) Name Value Range Interpretation Code Description Data Bren rce(s) Supporting Document(s) Urea nitrogen [Mass/volume] in Serum or Plasma 8 mg/dL 7-18 [facility] ([facility]) Glucose [Mass/volume] in Serum or Plasma 215 mg/dL 74-99 [facility] ([facility]) 100-125 mg/dL PRE-DIABETES/FASTING >126 mg/dL DIABETES/FASTING Creatinine 0.7 mg/dL 0.6-1.3 [facility] ([facility]) Sodium [Moles/volume] in Serum or Plasma 138 meq/L 136-145 [facility] ([facility]) Carbon dioxide, total [Moles/volume] in Serum or Plasma 29 meq/L 21 -32 [facility] ([facility]) Potassium [Moles/volume] in Serum or Plasma 4.3 meq/L 3.5-5.1 [facility] ([facility]) Chloride [Moles/volume] in Serum or Plasma 102 meq/L 98-107 [facility] ([facility]) Calcium [Mass/volume] in Serum or Plasma 9.4 mg/dL 8.5-10.1 [facility] ([facility]) Total Bilirubin 2.1 mg/dL 0.2-1.0 [facility] ([facility]) NOTE: T.BILI,AST,ALT VERIFIED Alkaline phosphatase isoenzyme [Units/volume] in Serum or Pl asma 105 mg/dL 46-116 [facility] ([facility]) Aspartate aminotransferase [Enzymatic activity/volume] in Serum or Plasma 105 U/L 15-37 [facility] ([facility] ) Alanine aminotransferase [Enzymatic activity/volume] in Seru m or Plasma 92 U/L 12-78 [facility] ([facility]) Albumin [Mass/volume] in Serum or Plasma 3.2 g/dL 3.4-5.0 [facility] ([facility]) Proteinase 3 Ab [Units/volume] in Serum 7.0 g/dL 6.4-8.2 [facility] ([facility]) A/G Ratio 0.84 CALC 1.00-1.90 [facility] Glomerular filtration rate/1.73 sq M pre dicted among blacks [Volume Rate/Area] in Serum or Plasma by Creatinine-based formula (MDRD) Laboratory test result [facility] <content>CHRONIC KIDNEY DISEASE STAGING PER NKF</content>
<content></content>
<content>STAGE I & II GFR >= 60 NORMAL TO MILDLY DECREASED</content>
<content>STAGE III GFR 30-59 MODERATELY DECREASED</content>
<content>STAGE IV GFR 15-29 SEVERELY DECREASED</content>
<content>STAGE V GFR <15 VERY LITTLE GFR LEFT</content>
<content>ESRD GFR <15 ON [employer]</content>
<content></content> Glomerular filtration rate/1.73 sq M pre dicted among non-blacks [Volume Rate/Area] in Serum or Plasma by Creatinine-based formula (MDRD) Laboratory test result [facility] ([facility] ID Date Data Source [id number] 05/29/2020 02:26:00 PM EDT [facility] ([facility] Name Value Range Interpretation Code Description Data Bren rce(s) Supporting Document(s) Erythrocyte sedimentation rate by Westergren method 39 mm/hr 0-15 [facility] ([facility]) ID Date Data Source [id number] 05/29/2020 02:26:00 PM EDT [facility] ([facility] Name Value Range Interpretation Code Description Data Bren rce(s) Supporting Document(s) Leukocytes [#/volume] in Blood by Automated count 4.0 x10*3/UL 4.1-10 .9 [facility] ([facility] NOTE: RESULT VERIFIED. Hemoglobin [Mass/volume] in Blood 13.8 g/dL 12.0-18.0 [facility] ([facility] Erythrocytes [#/volume] in Blood by Automated count 3.80 x10*6/UL 4.2 0-6.30 [facility] ([facility]) MCH 36.5 pg 26.0-32.0 [facility] ([facility]) Hematocrit [Volume Fraction] of Blood by Automated count 40.4 % 3 7.0-51.0 [facility] ([facility]) MCV 106.3 fL 80.0-97.0 [facility] Erythrocyte distribution width [Ratio] by Automated count 16.0 % 11.6-13.7 [facility] ([facility]) MCHC 34.3 g/dL 31.0-38.0 [facility] MPV 8.3 FL 7.8-11.0 [facility]) Platelets [#/volume] in Blood by Automated count 250 x10*3/UL 140-440 [facility] ([facility]) Lymph % 35.9 % 10.0-58.5 [facility] Mid % 7.9 % 1.7-9.3 [facility] Lymph # 1.4 x10*3/UL 0.6-4.1 [facility] ([facility]) Mid # 0.4 x10*3/UL 0.1-0.6 [facility] ([facility]) Neut % 56.2 % 37.0-92.0 [facility] Neut # 2.2 x10*3/UL 2.0-7.8 [facility] ([facility]) ID Date Data Source [id number] 02/19/2020 10:45:00 AM EDT [facility] Name Value Range Interpretation Code Description Data Bren rce(s) Supporting Document(s) EGD [facility] NBJOSw8mBgVIBeLqAULfYfiOROioWEjoDUGyG4T3NZddWb7IBNmpjeGzJESfFc3+SIVgKK8wfp4cNWLm gMy 5pFCPeUjljS4CdFLBli16LKSWzOZzFVoYiMgCaIsI0BRXkScJ6LXZ6XdHwKbyuDL8fJDP2JJQkQOjqIB OsWOicNLMgDDcxUB1jBFggKHmpTy4PTE1hv7MoDILlGLGgWetNREoeWVfqMICmOIOuAFBtT871aaYpKk 9PzYXwOFz8UNRlVqG1DMBnXwD3YOOqTk9vOlLby9Wz Q0HsLLp6P6aRIsdtP1ZcATzcJZ7ePCF1UGJiUt2RbWbmVYmoCMCXW9yqRnYiNOFcTZWUVq9+Pj4+DWVu UO5cyw56YSGvz9CgZUh8Y8H5dEEwN5UsR5GgJZVqiRNLl9woLdCaKEZ5EIVzOadiWY7ASEGojLKcKTBi BPkbVB4tquBzjWT0VM7MxMxjCTNoRXOMHm6+Pi9QYX GsaoUyLqBoEBJjS37dvVGkjWPbHckqIOATRZ0+DYRbMX5yrz78OKPzm2IbVRf0P0jbuio8nVPyZFP1Fx IxXeHtFXMmTR3fCM6XzUU1pPPuSE2QfMVeRO5EhISvUC1UF1DbUAR4R9WkkRReghApI6LjDGXkTHOcd7 NqGE9FH1UKFNMbHGMyE5GesB2lY6SeP8FqA7Xagwpj QKDVIp8GgKY6sVOnJVNpT1vzxMostIMpYFvtT4QjpZFJTNEPx39kk18ufyDaBS3+y4CwMAIgPBg77nb8 ZVAcX/gzZGUSNrs6GAatNKOpOyJTdl4zG1hhEyN9BQn6XpjwiSY8B1tCaCXT3//jdjp3qfq0oy/eD+/z 6WNRzj8+e2aq5qCo3cAf7LEOLPagGQTQeYQFRVSQ32 tpdMf7MOkyfLeggPyE+WQfJMGKeKDqr9tN6G3Bq7QVzqZpNoJ53+Or6nxw5bfh2jUs7+Lm/BucWA8kp6 ZHQyfGwCDmfEv+lvP/LG18RQvoeZjzorKJRpRMZtWYE+AdJ2RNSFOmExgCTC3kAOfIVjOyt9Lbm5I9DQ CPDXiFAAS+QgQiISEi/u31+qzINMDLsa6H3QVEL2yW [file] Rwp1ahWjiKd6x84gYx4toCt0iRGEuY139J9gYoJyfAth4uRKwodvUannmRVa4HWxgx3aTvh3mJ9+ASSEMBLER GOLD FRAME+S [file] 4cYfDyvKPFsS/w0waPZjYmVmfp8S4Btp0FKomS1Q/ovC+bPnMp7GVICwkDtWvhke6sIeQ6cgEqKJJ/Mud Car Worker [file] YOLXCtCEWJXttLJOZCyfmDk0ANMVt/eXbCDVa/JZ9Y furnace maintenance/4TEX34tPVP72Gl7NfbFwuEXHrF6twpewE4FBK4gqr2lmzLJefQ7olG0xPdl4GBtWIoQR/xYPaBrM [file] Jesus [file] rBjkIu/VfV4xq8LTRFPYs4PVIF4O/IeBSX7WTr7ba+financial services consultant+zM2Kqag/M7DEhmmVbsw51u72B+nps9ulmn4 [file] jAtvKbVKoljAMf4dGxpmsLZ7T8W5yrR5Ou98P0EAslQ3nczPiDOepdnjGvOWRjJ51u7hxxvV5Lf/Heather mVKnH/scdIfUSYD+Zzfj3ZV2A0YdidLueSe/iQRIqF ff0opSF8tnkCYf2LuhFEX9OusfVV4F/DE JESUS+1z9XnyMLF8owPeplX2nk9NLnE/hitxq/cB3AvvFWmpWL3o [file] W/uQ7SGcJ2MX+OJVYQkMXqgBmS6RbtX5W/jamEsZmqEzvonrHTlU9vVLf9b7n/2dd7k+Juan J+fg8uyDE4 [file] NcUQmoRowf+xRLHMeE3/jSFNwhmPCzMuyD4egjg31DXqIWYL9J6xKvuOsq/inpatient pharmacist+YKRlFoBAUmYDKOckhE [file] CTXPvVAs5HEP9xo1LaVUTaZFvsqzDdJcfWKSblxBMelDvzYVMCRoL0ASJbTh6JGKMSU5S= ID Date Data Source [id number] 02/14/2020 10:45:00 AM EDT [facility] Name Value Range Interpretation Code Description Data Bren rce(s) Supporting Document(s) SARS-COV-2 RNA RESP QL CECE+PROBE [facility] This lab was ordered by [facility] and reported by [employer]. ID Date Data Source [id number] 02/20/2020 10:17:00 AM EDT [facility] FASTING: UNKNOWNReceived: 02/15/2020 at 06:27:00 QPT: [facility] [address] [facility], [address] [place] [address], [phone], Tommy Conner MD Name Value Range Interpretation Code Description Data Bren rce(s) Supporting Document(s) SARS CoV 2 RNA NOT DETECTED Normal (applies to non-numeric results) [facility] A Not Detected (negative) test result fo [...] findings,re- testing should be considered in consultation [facility] health authorities. Laboratory test results shouldalways be considered in the context of clinicalobservations and epidemiological data in making a finaldiagnosis and patient management decisions.Please review the "Fact Sheets" and FDA authorizedlabeling available for health care providers andpatients using the following websites:https://www.[email or web address]/home/Covid-19/HCP/NAAT/fact-uuuko1azlqc://www.[employer] - is now [employer]/home /Covid-19/Patients/NAAT/fact-fybrh7Tqem test has been authorized by the FDA under anEmergency Use Authorization (EUA) for use by authorizedlaboratories.Due to the current public health emergency, Clerk is receiving a high volume of samples [...] about COVID-19 can be foun luda the [employer] website:[email or web address]. Your request to have a duplicate copy faxed has been acknowledged. Queued to: [id number] ID Date Data Source [id number] 01/27/2020 03:55:00 PM EDT [facility] ([facility]) Name Value Range Interpretation Code Description Data Bren rce(s) Supporting Document(s) Choriogonadotropin.beta subunit [Moles/volume] in Seru m or Plasma Laboratory test result [facility] ([facility] ) GESTATIONAL AGE APPROXIMATE HCG RANGE [...] monitoring the treatment of cancer patients. Siemens [employer] methodology. ID Date Data Source [id number] 01/24/2020 12:00:00 AM EDT [facility] Grant Tucker MD Patient Name: BLAKE SHEFFIELDvalentinowerner [facility] Date of : [address] [facility] Date of Exam: 01/24/2020ROCIO Calderon [id number]#: Fax: [phone] EXAM: US ABDOMEN, LIMITED SINGLE [...] choledocholithiasis does not rule itoutAccredited by the [place] [employer] in General Ultrasound.Nain Luna, DEBORA/Hosea cornelius for referring ULYSSES SHEFFIELD to our office.Electronically Signed - NAIN LUNA DO 01/24/20 17:09 Name Value Range Interpretation Code Description Data Bren rce(s) Supporting Document(s) ID Date Data Source [id number] 01/23/2020 10:06:00 AM EDT [facility] ([facility]) Name Value Range Interpretation Code Description Data Bren rce(s) Supporting Document(s) Lipoprotein lipase [Enzymatic activity/volume] in Serum or P lasma 600 U/L 73-393 [facility] ([facility]) Amylase [Enzymatic activity/volume] in Serum or Plasma 70 U/L 25- 115 [facility] ([facility]) ID Date Data Source [id number] 01/23/2020 10:06:00 AM EDT [facility] ([facility]) Name Value Range Interpretation Code Description Data Bren rce(s) Supporting Document(s) Blood Urea Nitrogen 5 mg/dL 7-18 [facility] ([facility]) Glucose, Fasting 297 mg/dL 70-100 [facility] ([facility]) Creatinine For GFR 0.54 mg/dL 0.55-1.30 [facility] ([facility]) Sodium Level 138 meq/L 136-145 [facility] ([facility]) Glomerular Filtration Rate Laboratory test result [facility] <content>Units are mL/min/1.73 m2</content>
<content></content>
<content>Chronic Kidney Disease Staging per NKF:</content>
<content></content>
<content>Stage I & II GFR >=60 Normal to Mildly Decreased</content>
<content>Stage III GFR 30-59 Moderately Decreased</content>
<content>Stage IV GFR 15-29 Severely Decreased</content>
<content>Stage V GFR <15 Very Little GFR Left</content>
<content>ESRD GFR <15 on [employer]</content>
<content></content> Potassium Serum 4.4 meq/L 3.5-5.1 [facility] ([facility]) Carbon Dioxide Level 26 meq/L 21-32 [facility] ([facility]) Chloride Level 105 meq/L 98-107 [facility]) Anion Gap 7 meq/L 8-16 [facility] Ast/Sgot 61 U/L 7-37 [facility] Calcium Level 8.8 mg/dL 8.5-10.1 [facility] ([facility]) Alt/SGPT 58 U/L 12-78 [facility] Alkaline Phosphatase 88 U/L 45-117 [facility] ([facility]) Bilirubin,Total 1.2 mg/dL 0.2-1.0 [facility] ([facility]) Total Protein 6.2 GM/DL 6.4-8.2 [facility] ([facility]) Albumin 2.9 GM/DL 3.2-5.2 [facility] ([facility]) Albumin/Globulin Ratio 0.9 1.2-2.2 [facility] ([facility]) ID Date Data Source [id number] 01/17/2020 02:13:00 PM EDT [facility] ([facility]) Name Value Range Interpretation Code Description Data Bren rce(s) Supporting Document(s) Lipoprotein lipase [Enzymatic activity/volume] in Serum or P lasma 452 U/L 73-393 [facility] ([facility]) Amylase [Enzymatic activity/volume] in Serum or Plasma 52 U/L 25- 115 [facility] ([facility]) ID Date Data Source [id number] 01/17/2020 02:13:00 PM EDT [facility] ([facility]) Name Value Range Interpretation Code Description Data Bren rce(s) Supporting Document(s) Blood Urea Nitrogen 8 mg/dL 7-18 [facility] ([facility]) Glucose, Fasting 272 mg/dL 70-100 [facility] ([facility]) Creatinine For GFR 0.78 mg/dL 0.55-1.30 [facility] ([facility]) Glomerular Filtration Rate Laboratory [facility] <content>Units are mL/min/1.73 m2</content>
<content></content>
<content>Chronic Kidney Disease Staging per NKF:</content>
<content></content>
<content>Stage I & II GFR >=60 Normal to Mildly Decreased</content>
<content>Stage III GFR 30-59 Moderately Decreased</content>
<content>Stage IV GFR 15-29 Severely Decreased</content>
<content>Stage V GFR <15 Very Little GFR Left</content>
<content>ESRD GFR <15 on [employer]</content>
<content></content> Sodium Level 139 meq/L 136-145 [facility] ([facility]) Potassium Serum 4.3 meq/L 3.5-5.1 [facility] ([facility]) Carbon Dioxide Level 29 meq/L 21-32 [facility] Chloride Level 100 meq/L 98-107 [facility] ([facility] Calcium Level 8.8 mg/dL 8.5-10.1 [facility] ([facility]) Anion Gap 10 meq/L 8-16 [facility] ([facility]) Ast/Sgot 81 U/L 7-37 [facility] ([facility]) Alt/SGPT 79 U/L 12-78 [facility] ([facility]) Bilirubin,Total 1.5 mg/dL 0.2-1.0 [facility] ([facility]) Alkaline Phosphatase 90 U/L 45-117 [facility] Albumin 2.9 GM/DL 3.2-5.2 [facility] ([facility]) Total Protein 6.4 GM/DL 6.4-8.2 [facility] ([facility]) Albumin/Globulin Ratio 0.8 1.2-2.2 [facility] ([facility]) ID Date Data Source [id number] 11/22/2019 02:55:00 PM EDT [facility] ([facility]) Name Value Range Interpretation Code Description Data Bren rce(s) Supporting Document(s) Erythrocyte sedimentation rate by Westergren method 51 mm/hr 0-20 [facility] ([facility]) C reactive protein [Mass/volume] in Serum or Plasma by High sensitivity method Laboratory test result 0.00-0.30 [facility]) ID Date Data Source [id number] 11/22/2019 02:54:00 PM EDT [facility] ([facility]) Name Value Range Interpretation Code Description Data Bren rce(s) Supporting Document(s) Urine Creatinine 236.6 mg/dL 30.0-125.0 [facility] ([facility]) Microalbumin Urine 2435.7 mg/L 1.3-20.0 [facility] ([facility]) Microalb/Creat Ratio 1029.5 ug/mg 0.0-30.0 [facility] ([facility]) ID Date Data Source [id number] 11/22/2019 02:54:00 PM EDT [facility] ([facility] Name Value Range Interpretation Code Description Data Bren rce(s) Supporting Document(s) Thyrotropin [Units/volume] in Serum or Plasma by Detec tion limit <= 0.05 mIU/L 2.25 uIU/mL 0.36-3.74 [facility] ([facility] ) ID Date Data Source [id number] 11/22/2019 02:54:00 PM EDT [facility] ([facility]) Name Value Range Interpretation Code Description Data Bren rce(s) Supporting Document(s) Glucose [Mass/volume] in Serum or Plasma 268 mg/dL 74-99 [facility] ([facility]) 100-125 mg/dL PRE-DIABETES/FASTING >126 mg/dL DIABETES/FASTING Urea nitrogen [Mass/volume] in Serum or Plasma 7 mg/dL 7-18 [facility] ([facility]) Creatinine 0.7 mg/dL 0.6-1.3 [facility] Sodium [Moles/volume] in Serum or Plasma 141 meq/L 136-145 [facility] ([facility]) Chloride [Moles/volume] in Serum or Plasma 103 meq/L 98-107 [facility] ([facility]) Potassium [Moles/volume] in Serum or Plasma 3.6 meq/L 3.5-5.1 [facility] ([facility]) Calcium [Mass/volume] in Serum or Plasma 9.0 mg/dL 8.5-10.1 [facility] ([facility]) Alkaline phosphatase isoenzyme [Units/volume] in Serum or Pl asma 69 mg/dL 46-116 [facility] ([facility]) Carbon dioxide, total [Moles/volume] in Serum or Plasma 30 meq/L 21 -32 [facility] ([facility]) Total Bilirubin 0.9 mg/dL 0.2-1.0 [facility] ([facility]) Aspartate aminotransferase [Enzymatic activity/volume] in Serum or Plasma 51 U/L 15-37 [facility] ([facility] ) Alanine aminotransferase [Enzymatic activity/volume] in Seru m or Plasma 50 U/L 12-78 [facility] ([facility]) Albumin [Mass/volume] in Serum or Plasma 3.0 g/dL 3.4-5.0 [facility] ([facility]) Glomerular filtration rate/1.73 sq M pre dicted among non-blacks [Volume Rate/Area] in Serum or Plasma by Creatinine-based formula (MDRD) Laboratory test result [facility] ([facility] A/G Ratio 0.75 CALC 1.00-1.90 [facility] Proteinase 3 Ab [Units/volume] in Serum 7.0 g/dL 6.4-8.2 [facility] ([facility]) Glomerular filtration rate/1.73 sq M pre dicted among blacks [Volume Rate/Area] in Serum or Plasma by Creatinine-based formula (MDRD) Laboratory test result [facility]) <content>CHRONIC KIDNEY DISEASE STAGING PER NKF</content>
<content></content>
<content>STAGE I & II GFR >= 60 NORMAL TO MILDLY DECREASED</content>
<content>STAGE III GFR 30-59 MODERATELY DECREASED</content>
<content>STAGE IV GFR 15-29 SEVERELY DECREASED</content>
<content>STAGE V GFR <15 VERY LITTLE GFR LEFT</content>
<content>ESRD GFR <15 ON [employer]</content>
<content></content> ID Date Data Source [id number] 11/22/2019 02:54:00 PM EDT [facility] Name Value Range Interpretation Code Description Data Bren rce(s) Supporting Document(s) Hemoglobin A1c/Hemoglobin.total in Blood 8.0 g/dL 4.8-5.6 [facility] Lab Result Notes: Pre-Diabetes 5.7 - 6.4 % Diabetes = or > 6.5% Glucose mean value [Mass/volume] in Blood Estimated fr om glycated hemoglobin 183 mg/dL 60-110 [facility] ID Date Data Source [id number] 11/22/2019 02:54:00 PM EDT [facility] ([facility] Name Value Range Interpretation Code Description Data Bren rce(s) Supporting Document(s) Erythrocytes [#/volume] in Blood by Automated count 3.69 x10*6/UL 4.2 0-6.30 [facility] ([facility]) Leukocytes [#/volume] in Blood by Automated count 5.7 x10*3/UL 4.1-10 .9 [facility] ([facility]) Hemoglobin [Mass/volume] in Blood 12.0 g/dL 12.0-18.0 [facility] ([facility]) MCH 32.6 pg 26.0-32.0 [facility] ([facility]) MCHC 33.8 g/dL 31.0-38.0 [facility] ([facility]) Hematocrit [Volume Fraction] of Blood by Automated count 35.6 % 3 7.0-51.0 [facility] ([facility]) MCV 96.3 fL 80.0-97.0 [facility] ([facility]) Platelets [#/volume] in Blood by Automated count 263 x10*3/UL 140-440 [facility] ([facility]) Erythrocyte distribution width [Ratio] by Automated count 16.3 % 11.6-13.7 [facility] ([facility]) MPV 7.0 FL 7.8-11.0 [facility] Mid % 7.6 % 1.7-9.3 [facility] Neut % 63.9 % 37.0-92.0 [facility] Lymph # 1.6 x10*3/UL 0.6-4.1 [facility] ([facility]) Lymph % 28.5 % 10.0-58.5 [facility] Mid # 0.5 x10*3/UL 0.1-0.6 [facility] ([facility]) Neut # 3.6 x10*3/UL 2.0-7.8 [facility] ([facility]) ID Date Data Source [id number] 10/21/2019 01:11:00 PM EDT [facility] ([facility]) Name Value Range Interpretation Code Description Data Bren rce(s) Supporting Document(s) Laboratory test finding (navigational concept) Laboratory test result [facility] SEE SEPARATE REPORT Testing performed at reference lab . Report copy to follow on a separate form. 10/29/19 REF LAB#:[id number] ID Date Data Source [id number] 10/21/2019 01:11:00 PM EDT [facility] ([facility]) Name Value Range Interpretation Code Description Data Bren rce(s) Supporting Document(s) C reactive protein [Mass/volume] in Serum or Plasma by High sensitivity method Laboratory test result 0.00-0.30 [facility]) ID Date Data Source [id number] 10/21/2019 01:11:00 PM EDT [facility] Name Value Range Interpretation Code Description Data Bren rce(s) Supporting Document(s) Glucose, Fasting 203 mg/dL 70-100 [facility] ([facility]) Blood Urea Nitrogen 10 mg/dL 7-18 [facility] ([facility]) Sodium Level 139 meq/L 136-145 [facility] ([facility]) Glomerular Filtration Rate Laboratory test result [facility] ([facility]) <content>Units are mL/min/1.73 m2</content>
<content></content>
<content>Chronic Kidney Disease Staging per NKF:</content>
<content></content>
<content>Stage I & II GFR >=60 Normal to Mildly Decreased</content>
<content>Stage III GFR 30- 59 Moderately Decreased</content>
<content>Stage IV GFR 15-29 Severely Decreased</content>
<content>Stage V GFR <15 Very Little GFR Left</content>
<content>ESRD GFR <15 on [employer]</content>
<content></content> Creatinine For GFR 0.56 mg/dL 0.55-1.30 [facility] ([facility]) Carbon Dioxide Level 27 meq/L 21-32 [facility] ([facility]) Chloride Level 105 meq/L 98-107 [facility] ([facility]) Potassium Serum 3.9 meq/L 3.5-5.1 [facility] ([facility]) Anion Gap 7 meq/L 8-16 [facility] [facility]) Calcium Level 9.3 mg/dL 8.5-10.1 [facility] ([facility]) Alt/SGPT 52 U/L 12-78 [facility]) Ast/Sgot 39 U/L 7-37 [facility] ([facility]) Bilirubin,Total 0.9 mg/dL 0.2-1.0 [facility] ([facility]) Total Protein 7.2 GM/DL 6.4-8.2 [facility] ([facility]) Alkaline Phosphatase 56 U/L 45-117 [facility] ([facility]) Albumin/Globulin Ratio 0.89 1.00-1.93 [facility] ([facility]) Albumin 3.4 GM/DL 3.2-5.2 [facility]) ID Date Data Source [id number] 10/21/2019 01:11:00 PM EDT [facility] ([facility]) Name Value Range Interpretation Code Description Data Bren rce(s) Supporting Document(s) White Blood Count 5.2 10 4.0-10.0 [facility] ([facility]) Red Blood Count 3.51 10 4.00-5.40 [facility] ([facility]) Hemoglobin 11.5 g/dL 12.0-15.5 [facility] Hematocrit 36.0 % 36.0-47.0 [facility] Mean Corpuscular Volume 102.6 fl 80.0-96.0 [facility] ([facility]) Mean Corpuscular Hemoglobin 32.8 pg 27.0-33.0 [facility] ([facility]) Red Cell Distribution Width 17.2 % 11.5-14.5 [facility] ([facility]) Platelet Count, Automated 315 10 150-450 [facility] ([facility]) Mean Corpuscular HGB Conc 31.9 g/dL 32.0-36.5 [facility] ([facility]) Nucleated Red Blood Cell % 0.0 % 0-0 [facility] ([facility]) ID Date Data Source [id number] 10/18/2019 03:00:00 PM EDT [facility] Name Value Range Interpretation Code Description Data Bren rce(s) Supporting Document(s) Follow Up [facility] NCSTYg1wPoCGIcBgYTHqGehMUGlmMRakHAVdO3O9GOvfNh7BKRtfdxKzRGPyVw6+YAIiHN4trs5xAPJq gMy [file] Jesus [file] UevLp615A3Jde7eV9pIsBaN5Q79+nm7sopWjet/Jose Alberto [file] Tsuj5zrof0rmplFLSg1X3rA0/fXGqo/QIaKlZ2H56hgDfkk3gM3y8+kaiako kohanga reo+xRrzpOuTRTv812PHWFb+yG [file] Jesus [file] 4Ycv3+9+De Jesus+7sk9nX81Ra75xti2+/3U9Y5+2wxu8cEYcz7U9ofYvyW4wQd/b8yhhgYlnpImnGjCgeoJr [file] M[employer]er/Sql6unQsrj2Hpe7K0mvAB4YGMOxBYYPwg1JEh6g22r2H9dp/3iAQ2TVz/TNfwUK8mvu8f29C8miYr [file] eF2Its1ggx5PNCci+DE JESUS/maexfH6eFY1ntzgbzLAQ1w [file] Pr/dCZf43zb0TuJmjIP2u+FkZdqFGg9QJCLQHy6/Mud Car Worker [file] hhpaOjUn2Y7/81/DE JESUS/XTviBCqk76TjS/R5GAeKyaCl8IeBtr3kkX6mZtgW8i7GvX6oKAb/rQT58fWMXe [file] oYIFpO7F8+DE JESUS/0XY/+fLN4SD3knl371q0uk97Ee7/RVkBV1CQ+/9IdsCm3yyJwqHedxtivsLoVVaKBCo [file] supervisor coal handling/qUjW4YsSpMnWlFA7vVy1Mhf80oQKM4Ibiw/WF [file] 7E+rem9Mv0xSRHkH9qnMYR221/welding foreman+XEABjMaJr4w1zri92A875LHbUVDxElO86fSo7W/OaG90oFFEBK [file] kBeVQmC/A/radiology orderly+jCApKfThPDWOLVbwNc/uquEr3kcFsk9RjQer/fgCU9jVBOfIzSFUVoH+qVgo4W1fV1 [file] Information Strategist/GXqLu4srEocgk2u/elGof65MrRzJmExUij7bnwA [file] De Jesus+FhgteWtkyYKEmOuRren3kVoFUJ2GMWBql4yUcWzRYBVWbpny/C+dF7IQsftcacAh84Cz+pCuBvtjU [file] 1SNAbNIg+FY+generating station mechanic+Vfd+LPJv8fX/EAkGAAt3jFC3AZevjzfX+rWLqXQ69/kwIrTYb/XtjoRcZDtV1I5/ [file] WH9H9igexN8RpRBe8ZSgG5nkUltzaw62ozaxrfefvO DE JESUS/3o9YiE9D83qQ/bc5DkOQIWbZmk2EgRPQ7u4Op+wJdcjBnPCCvMr7LfY93TgmVlWBw/K4PjLvkVz9J 3wRm4+21doxwSaMTscn4lUKPVRAGRL+pS7JSsil3qbhTOqxbHqRUAyglO7WY0qCBxAV3NOZhUt1dWwdp GDrGIovMnVotq4bk1kzhLQePfx+3Hwug59sQPyzJUI IcRl1L/+Z92uvZo0zmqQ5sedMIFoVKfZSVYCI5YwIhvKS5l3rJ3d92pOfx/KdNaOywgMTefCy5Fh+5Rk QMcZIpa/WdcdySFKZ07vT6z8o8vbV/jt+t6uvkvnFo3vu8ZmJBFzQJ6cI+euU1M48g9e9ikfks4tKzoV NtcDw+fYMwEYOujNU2l1kIvL51PFp2qwS8UYucz10Y qTlOkDkLXjFTQsRecnboAUbVsKj1tgHjPuY+migXK0miPJGWPUHfVMg2IsQF2yMIHXlYWHWDgnJsUyi+ 7JwANceznr2nG0GnOWLWgo6/GGSlTk2BKiNDh+yZWUz++FI9JDbZd04Rhug+wcNgKxF6rJI6m3d6f9/d Fjgf2OsaJwD9mAc+F3nvhH4Uxdldh4Ufh3x5ur+/ENGLISH [file] ol/PEAtMyS6M4GgjkEoOV7zytFm0qkjwTYca7u/valentín [file] 3IeMyElI3lkfln4T0un0wUr0sWbIPMBjcoGLYrn366fqTwGorrcSz4kcS+jo4OhuXqabbewpqMeGV+inpatient pharmacist Syusvita4+xyR49NsAL91LZeE7skT3e27DIBkJ3jv2aUDym7xVkwwC0m3nlFwg5KUjLd9HIfIw8dWftz M05ghMchFNtIe0moGifYZRCLzsxJFXPuV858+BpCzG HYydKGD709+NYbExT8Q3gtwFBAxZKfIKuAjIMwyuj6eLZYBHcX5JZW4lsjocmFwTWtLtnop4n4qhhABE m+E8O3l9zfI88OameN1tWZB2RDYrcxVu8jIt5EdAy1oOOSujBtSMJoIv216e9zDCxWQgrEF8M8AywED8 JL++vi7H8XdTTT/DA0l0pTMN/UW9vNKtoagecEor7l 4hkcq56yuV7pxUlDWCMmcPx0dvmuoBH+Dqs72ZFo10tpw8+j4A0lut6Jq723Z/BIDz9sTeBU/GsDki2E y4bg+5GTzqb/xO0C0Q5xv1pNBENFJDQSg9Y8H0Wl9v5FVWEIbCS+DPVe5any/EEGx7+BwInUbpR4JbqJ warZxCXhg9db29yc2Rp5cGK452dSvNjyftS068mgoN CVr1/AqiohBjm2RmATS5IjcUiIFrny5zV1sJfyTAvDlx+UFiWJWHViiLlU54VVPbCSs5f8Vue8lrMUme x/5F2ECzua6gEpon2WeIXMdS7cPupCy428bJWKpcDVx0nF2vcgVsKcv+MOZ3FFIfFuF/rTaj09IJ+Lorena [file] hourly sign language interpreter/l8G0YIGVzne+1mLgmeOrL+5Ic6CDWcjOdaZnaljI14eSRPu8Ua+Fh9cg7AhtQ7aW5d+0TRm5uPPa [file] huS6DtsHKpzZ6/De Jesus+ozpEcumHAqrUryC9Paa83vFdFnlr96KI3dpMDFYOgoQYnZyjJuTJftUuHbvPlEt [file] lBfjPV9uw8EvgOYOcM2MInhkdtBk7vP8kfxD/UlkKG6mzAtG0ltHBARo+doT9gS+1BKvointIsVI+nailer operator [file] management planner/oYOa [file] wqmWsQE80CDfecIwLmliYRKNSjcDx8EytLcZcU/wash house worker RMkoina30x9DK8cnENHgJJv152nDbKDYB5aCvRlvk5ICNX8R6rwbofCdIuUqW+yNuHlXqnDFxeNvbjKq YH11iXdfkvv/rsZhT4OKbask0Pe1wnn0fa4t9gOCK88DMRbJ1Uv/e98zofklk/C1AoaGMRlVSF3ke8Da JI7kA8zXhEwgvvUCnGaGXxJzYcX7RQqiQZE8itpUTi cD3O9R10FNaGzYhmbiw+Mny5krMHhMCHen1ViGkp00GYsz8c4h3nj930eKgCHEay66M3kXnzxn23GLcw JUwiebH9zuONXL4o9BEhgkjzM+mnjGa/iaezXYh0Z6wBnUyELs46F4Ak3dIrYACBbqmBKgKFA3uhKgtg Kj6y+oUC27hFYpPPkniBxe2SD5p95PybHqEQ94z1an naxjPLIw1Iz2IYeQ+eqRsfsQ/yeDRQ/HQJa/b/Tr40VQ0HUGsqzBrg8opNPOwvkCaIfYL8o4zOxNhxM9 nhE7tsl/6Cn07CdYCjbnQeK7r/IaaSJlpwDWrozKZqI8nKw2pOX8B043Jp+3KtFy0+QTKPXHtK3SBITG VdsnN7l1zaP1aezI2hcrybU71oMR2gEXfTN1UqGyMM RIteA3RngrRnV7sCW/LzTnyjKL32GzCKIV1yxi5mzRLNXuBPZyHGcm5mDC3HVDo2Hn7x+9kjGPAIulQg iC+zw5oV3eddx3ztQgcuBS/DybTbHiifBGDTajsqyuUHx1hcaWzQb6eBx6eIE2k+KVsXQyoR2bO7JizP ftQTc+vMSnc1cnUmsXMJopkDRA4K1xe10xys5/fIQF 1YJdzEosN47RoGPBVHzIfGpDlLGi+7CRMqUdjJEbfzUCJP+xEX/vuoZ02OWMuOxzMWRZSLkCUnAgkH16 ECnxsRhGYw8YSpZjYRexrB7bg22JXTLbJ/nCsoO/U6uJ1miSBtlOQZc9w7UWdC9REz5Vf3ByglchvIcc xaUlPtfJsAaPQjctbgnKHsIcWUaWxkQHNWSVUYTtPs [file] yard laborer/8aQhZe7C2Fzt6iIzg0bQUXFxwyckM8+iJfuy1pRaGsUxNHjdzRzk67GT6os79klCoi1CIWmsMB1rq [file] OcGzMO3awo+eZrv1PbSoV/rrnpYk/ENTERPRISE SOLUTIONS ARCHITECT+TcVpdYRjgYND/p5t0U72LluDMUYNGoTQrFtvMD4b+/kyfJ5 [file] oNTEurdrsP3Y6eOoT6MYBxd1zvUnzti/8nAAq3uyhZ71307NzQNGZZ/dip painter+d7U7wsE7PhJmnltOzu9hq [file] Park+r o7p3ehp3ERquOt4oyPzlD22074SORzVVYtbYv+bn9KbN1BJBYrmPNMXVmuQNDvHXwWZI1iITqxgo3N7K FTzRhmxSsiX3xoVV/RzzTBRrs2ato0+QPMrRG2J9H8 ml7HJ/P8nIn57fqMHKUbtjgj6MhFfrULbt/wiSl2zxwkVQEN0j5xTWXNoWVHHEcOdweIC5VvdOK1fdWF iZSt/woEtVgVWMiKzHOZ9hDiXFkkrrrYGeo8bOABd2Q08uS2lPORLKDOPxXi6jxxxyqk0CSjVogP3X0Q MBUwjaJuqtjWhJmPSsiwEfQ6y4wXkl/Wz5GJ2nSb83 oXevwxDOdsIsumd2cOHzEq0nk1B2JMJibqx1WQ24nhIr5P56q0KQ6n8jBHkiPsi3lv2QmSwme7kYbRV+ Letepkr3/EIvueny54a9drBAgu2v0bQ9mLUuFTn+Dt2YWRZVCRQbpKyI40jbjeqazE8FJ3E3tETs9gwF 0Fji7VnqRfZoQka2bCIcX115UykmgVFGr8JPKoSGdh 6CN0WKfFRwC/Mpxjv4l4gCIYhh3C96+Robinson/lytaaxRony/Fbv/fA/Kzg32dOHm6ODJ38r8S4P+t6dzPIg [file] Beverly/ddJfF7IR62YTUOmYoPwZwmJhwB2ujB9UsowzG8ZNoCGVePG5NyPWYG7cRxdwZYAZ2j5rLr1mcTsK td4G31odoOExD2xyKWeiiWVQb91i5DOlo0PTjz2pDH 3rObmGeCGtQPL124D4Hz9W9JUjc2nlOsDkw+3eFUN0/LnSKmn3Y1mhvqZb69+fncAYjXT79rhDE3thHF OynKqdf+TmQG0BpT45nkYhs1Snrtv+V06OqJhbkPXfCpf/2aJ4//5nyh5GYYpUvTttSrSV2dI9Dy1Qtn tHeBMhc0USgKKjfUMgtopS0pAo7mTqzwaS76mGnbmV jG/wBfKpn5c3fGjwpzUt0lNlgKZMsEhICklv/T92iFveirobLRtuy42x0nJCi5sPVUXmrt3YsSzaRyl/ Ls3stCZtkt2dXQyT887jh/deHeRyH16OqwgNGaNIZ33++fHbyMOWxHtaes/8anrk+2XQhNw75QQbx+cT tYrJKVjw1R1O7++JOSE M/x0hg4C8mdJ/b9Aqc+u1f/eP [file] +BuVJz7e77fQiDWfDHoqPi7LFm23Q8wjTwPFecXlKGOZP2diybZubSUqFozCXJ8u+z01ANZp2y3E2+ASSEMBLER GOLD FRAME [file] x9GwkQFrjtE7VNNotvOyS58XmDv9YVwYlMMYhh9HOKMB1dG5E8+fv8o27PlCXkL0V+fbvjK4YY8d+production scheduler [file] 7Rz+yard laborer/icd/A5FDFtKqbN+KeyiHPbD52x79dtLl547 [file] SHnGhFDHFg5y2CI9QkD4GycfVY0IVLgXqT0+YOUHYgyo5O2u3q0j4chS01koAgk/yard laborer+Ys6wCi/0Urvd7 [file] mhrhAHdtsPhOA6i/6osgTOfsXIytfJqu7nLGw0hnbEXHPCM+gfaM8XH3zLP0IZoPqzQ2ilJ+MOUNTER CLARINETS/Ybo6R [file] pjzq5Nuib3itN/hetWtGY0bvDD0Vec/0fzH81/ASSEMBLER GOLD FRAME/R/Efzv2j+P/ALdolDpenP+jUfCuhIf3kCtCJjja [file] kUVPOwAy1GoASLxATwRlWQoT/9GnDDh6p94EcjazoQjZBj3pXRUvs7V2j/sBA35Wpu+b3SP1WJjda/Mud Car Worker [file] Yfc9FwN1SDTSTIVQDMD4CX7cKSBIUSWHCmsNSaVTII pSWRK5DUowRSw9QeIYK4V2LZDvKe9cQl9dgPWjMGExWs9RefPqOZTfXXWJW4GwqsYdXsZqEXuyDUPiAR HbZp4QZLvuIFEvSB4+LfW0bsOylY8MqDrgJVLrdWPtKAKvZOGDSF5JePk9ZXBVSCCmpCUAZd+AyLsyQJ KncSOIbNIDk/VFHgAHC9hdS1QunoXGpC9mjYUEezNY xjzpO9SvhjENTWDCRivCIDUCNSoEjtbKmNUoCGIV/s8PEo4PWA4jc5WfKHOqNJowlkXrIacJDWcutQYy fXzoYNTZFlC6PEh9SSDRWjGcRL4M ID Date Data Source [id number] 10/07/2019 06:48:45 AM EST [facility]FORMATION[facility] Name Date of Age Gend*PT [id number] [address] 1975 43 years F IPPT Location Admission Date/Time Visit ID Attending [id number] 08/26/19 1601 --- --- EPI ID CSN Admitting Provider [id number] Ok Hester MD([id number]) [place] [address] DISCHARGE SUMMARY DISCHSUMNAME: ULYSSES SHEFFIELD#: [id number] #: [id number] ADMISSION DATE: 08/26/2019DOB: 1975 SEX: F PT TYPE: I SURACCT #: [id number] CARE PHYSICIAN: BRANDIN RODRIGUES OF DISCHARGE: 08/08HOSPITAL [...] regular diet, willbe followed in the office.YUKO FIGUEROA/[place] Job #: [id number] DOC #: [id number] Name Value Range Interpretation Code Description Data Bren rce(s) Supporting Document(s) ID Date Data Source [id number] 09/23/2019 11:09:05 AM EST [facility]FORMATIONPatient MRN Name Date of Age Gend*PT [id number] [address] 1975 43 years F IPPT Location Admission Date/Time Visit ID Attending [id number] 08/26/19 1601 --- --- EPI ID CSN Admitting Provider [id number] Ok Hester MD([id number]) [place] [address] OPERATIVE REPORT OPNAME: ULYSSES SHEFFIELD#: [id number] #: [id number] ADMISSION DATE: 08/26/2019DOB: 1975 SEX: F PT TYPE: I SURACCT #: [id number] CARE PHYSICIAN: BRANDIN SANTOSGDATE OF OPERATION: 020PREOPERATIVE DIAGNOSES:1. Crohn's disease recurrence with stricture at terminal ileum.2. Colonic anastomosis.POSTOPERATIVE DIAGNOSES:1. Crohn's disease recurrence with stricture at terminal ileum.2. Colonic anastomosis.3. Without evidence of any skip areas and a limited segment of small bowelhad to be resected.SURGEON:Ok Hester, MDDESCRIPTION OF PROCEDURE:The patient was put in [...] taken down with 0 chromic suture ligatures. Gxdby-vp-cqwn anastomosis was performed. There appeared to be very goodblood supply to both s egments of intestine. MARLENI firing was performed, theensuing hole was then closed with a TA 60. The asgk-ql-fptt staple linewas reinforced with 3-0 Vicryl suture. Hemostasis was checked and found gaston adequate. Lap count was correct as was the instrument count. Abdomenwas closed with a running #1 PDS. Subcutaneous tissue was irrigated andthe skin was closed with cyndi. Sponge, needle and instrument count werecorrect.ESTIMATED BLOOD LOSS:150-200 mLYUKO FIGUEROA/[place] Job #: [id number] DOC #: [id number]: GRANT TUCKER MD Name Value Range Interpretation Code Description Data [facility] rce(s) Supporting Document(s) ID Date Data Source [id number] 09/12/2019 10:50:00 AM EST [facility] ([facility]) Name Value Range Interpretation Code Description Data [facility] rce(s) Supporting Document(s) Bacteria identified in Urine by Culture Laboratory test result [facility] ([facility]) <content>FULL REPORT IN LAB NOTES (eCW a [...] <=1 S</content>
<content></content> ID Date Data Source [id number] 09/12/2019 10:49:00 AM EST [facility] ([facility]) Name Value Range Interpretation Code Description Data Bren rce(s) Supporting Document(s) Urine Color Laboratory test result [facility] T ([facility]) Urine Appearance Laboratory test result Abnormal (applies to non-numeric results) [facility] ([facility]) Urine PH 6.0 units 5.0-9.0 [facility]) Specific gravity of Urine 1.020 1.005-1.030 [facility] ([facility]) Urine Blood Laboratory test result Abnormal (applies to non-numeric results) [facility] ([facility]) Urine Leukocytes Laboratory test result Abnormal (applies to non-numeric results) [facility] ([facility]) Glucose [Presence] in Urine Laboratory test result [facility] ([facility]) Urine Protein Laboratory test result 0-0 Abnormal (applies to non-numeric results) [facility] ([facility]) Urine Nitrite Laboratory test result [facility] ([facility]) Urine Ketone Laboratory test result [facility] NT ([facility]) Bilirubin.total [Mass/volume] in Serum or Plasma Laboratory test resu lt [facility] ([facility]) Urine Urobilinogen 0.2 mg/dL 0.2-1.0 [facility] ([facility]) ID Date Data Source [id number] 09/03/2019 08:24:12 AM EST [facility] Name Value Range Interpretation Code Description Data Bren rce(s) Supporting Document(s) POC NOVA GLU 155 mg/dL (70-99) H [facility] PERFORMED [facility] CLINICAL STAFF ID Date Data Source [id number] 09/02/2019 05:27:49 PM EST [facility] Name Value Range Interpretation Code Description Data Bren rce(s) Supporting Document(s) POC NOVA GLU 177 mg/dL (70-99) H [facility] PERFORMED BY [facility] CLINICAL STAFF ID Date Data Source [id number] 09/02/2019 01:51:53 PM EST [facility] Name Value Range Interpretation Code Description Data Bren rce(s) Supporting Document(s) POC NOVA GLU 186 mg/dL (70-99) H [facility] PERFORMED BY [facility] CLINICAL STAFF ID Date Data Source [id number] 09/02/2019 08:30:16 AM EST [facility] Name Value Range Interpretation Code Description Data Bren rce(s) Supporting Document(s) POC NOVA GLU 169 mg/dL (70-99) H [facility] PERFORMED BY [facility] CLINICAL STAFF ID Date Data Source [id number] 09/02/2019 10:02:31 AM EST [facility] Name Value Range Interpretation Code Description Data Bren rce(s) Supporting Document(s) MAGNESIUM 1.5 mg/dL (1.7-2.4) L [facility] ID Date Data Source [id number] 09/02/2019 10:02:31 AM EST [facility] Name Value Range Interpretation Code Description Data Bren rce(s) Supporting Document(s) SODIUM 139 mmol/L (136-145) [facility] POTASSIUM 3.3 mmol/L (3.6-5.2) L [facility] CHLORIDE 104 mmol/L (100-108) [facility] CO2 24 mmol/L (22-31) [facility] ANION GAP 11 mmol/L (7-16) [facility] UREA NITROGEN 6 mg/dL (7-24) L [facility] CREATININE 0.60 mg/dL (0.60-1.00) [facility] BUN/CREAT RATIO 10.0 RATIO (10.0-20.0) [facility] GLUCOSE 165 mg/dL (70-99) H [facility] CALCIUM 8.1 mg/dL (8.4-10.2) L [facility] TOTAL PROTEIN 5.3 g/dL (6.4-8.2) L [facility] ALBUMIN 2.1 g/dL (3.5-4.6) L [facility] GLOBULIN 3.2 g/dL (2.7-4.3) [facility] ALB/GLOB RATIO 0.7 RATIO [facility] ALKALINE PHOSPHATASE 68 U/L (45-117) [facility] BILIRUBIN,TOTAL 0.7 mg/dL (0.0-1.0) [facility] AST (SGOT) 24 U/L (11-39) [facility] ALT (SGPT) 41 U/L (12-78) [facility] GFR >60 ml/min/1.73m2 (>59) [facility] GFR ( AMER) >60 ml/min/1.73m2 (>59) [facility] GFR INTERPRETATION [facility] --NORMAL KIDNEY FUNCTION OR MILD DISEASE - GFR >OR= 60CHRONIC KIDNEY DISEASE - GFR 15 - 59RENAL FAILURE - GFR <15 Est. GFR calculation based on the MDRDstudy equation, which assumes a steadystate for creatinine. Est. GFR should notbe used for medication dosing. ID Date Data Source [id number] 09/02/2019 09:19:10 AM EST [facility] Name Value Range Interpretation Code Description Data Bren rce(s) Supporting Document(s) WBC 4.9 10*3/uL (4.1-11.0) [facility] RBC 3.16 10*6/uL (4.00-5.40) L [facility] HGB 11.1 g/dL (12.0-16.0) L [facility] HCT 32.5 % (36.0-47.0) L [facility] MCV 102.8 fL (80.0-95.0) H [facility] MCH 35.2 pg (27.0-32.0) H [facility] MCHC 34.2 g/dL (32.0-36.0) [facility] RDW 16.3 % (10.5-14.5) H [facility] PLT 272 10*3/uL (150-450) [facility] MPV 6.8 fL (7.1-10.7) L [facility] ID Date Data Source [id number] 09/01/2019 06:30:44 PM EST [facility] Name Value Range Interpretation Code Description Data Bren rce(s) Supporting Document(s) POC NOVA GLU 142 mg/dL (70-99) H [facility]FOR[facility] CLINICAL STAFF ID Date Data Source [id number] 09/01/2019 10:26:14 AM EST [facility] Name Value Range Interpretation Code Description Data Bren rce(s) Supporting Document(s) POC NOVA GLU 209 mg/dL (70-99) H [facility]FORMED BY [facility] CLINICAL STAFF ID Date Data Source [id number] 09/01/2019 09:30:36 AM EST [facility] Name Value Range Interpretation Code Description Data Bren rce(s) Supporting Document(s) SODIUM 140 mmol/L (136-145) [facility] POTASSIUM 3.2 mmol/L (3.6-5.2) L [facility] CHLORIDE 102 mmol/L (100-108) [facility] CO2 26 mmol/L (22-31) [facility] ANION GAP 12 mmol/L (7-16) [facility] UREA NITROGEN 9 mg/dL (7-24) [facility] CREATININE 0.70 mg/dL (0.60-1.00) [facility] BUN/CREAT RATIO 12.9 RATIO (10.0-20.0) [facility] GLUCOSE 177 mg/dL (70-99) H [facility] CALCIUM 8.6 mg/dL (8.4-10.2) [facility] GFR >60 ml/min/1.73m2 (>59) [facility] GFR ( AMER) >60 ml/min/1.73m2 (>59) [facility] GFR INTERPRETATION [facility] --NORMAL KIDNEY FUNCTION OR MILD DISEASE - GFR >OR= 60CHRONIC KIDNEY DISEASE - GFR 15 - 59RENAL FAILURE - GFR <15 Est. GFR calculation based on the MDRDstudy equation, which assumes a steadystate for creatinine. Est. GFR should notbe used for medication dosing. ID Date Data Source [id number] 09/01/2019 09:30:36 AM EST [facility] Name Value Range Interpretation Code Description Data Bren rce(s) Supporting Document(s) MAGNESIUM 1.7 mg/dL (1.7-2.4) [facility] ID Date Data Source [id number] 09/01/2019 09:07:31 AM EST [facility] Name Value Range Interpretation Code Description Data Bren rce(s) Supporting Document(s) WBC 5.0 10*3/uL (4.1-11.0) [facility] RBC 3.61 10*6/uL (4.00-5.40) L [facility] HGB 12.6 g/dL (12.0-16.0) [facility] HCT 37.3 % (36.0-47.0) [facility] MCV 103.3 fL (80.0-95.0) H [facility] MCH 34.8 pg (27.0-32.0) H [facility] MCHC 33.7 g/dL (32.0-36.0) [facility] RDW 16.2 % (10.5-14.5) H [facility] PLT 353 10*3/uL (150-450) [facility] MPV 6.4 fL (7.1-10.7) L [facility] ID Date Data Source [id number] 08/31/2019 10:15:29 PM EST [facility] Name Value Range Interpretation Code Description Data Bren rce(s) Supporting Document(s) POC NOVA GLU 133 mg/dL (70-99) H [facility] CLINICAL STAFF ID Date Data Source [id number] 08/31/2019 04:58:50 PM EST [facility] Name Value Range Interpretation Code Description Data Bren rce(s) Supporting Document(s) POC NOVA GLU 150 mg/dL (70-99) H [facility]FORMED BY [facility] CLINICAL STAFF ID Date Data Source [id number] 08/31/2019 11:46:12 AM EST [facility] Name Value Range Interpretation Code Description Data Bren rce(s) Supporting Document(s) POC NOVA GLU 231 mg/dL (70-99) H [facility] PERFORMED BY [facility] CLINICAL STAFF ID Date Data Source [id number] 08/31/2019 09:05:13 AM EST [facility] Name Value Range Interpretation Code Description Data Bren rce(s) Supporting Document(s) POC NOVA GLU 182 mg/dL (70-99) H [facility]FORMED BY [facility] CLIN[facility] STAFF ID Date Data Source [id number] 08/31/2019 11:25:06 AM EST [facility] Name Value Range Interpretation Code Description Data Bren rce(s) Supporting Document(s) MAGNESIUM 1.7 mg/dL (1.7-2.4) [facility] ID Date Data Source [id number] 08/31/2019 07:53:12 AM EST [facility] Name Value Range Interpretation Code Description Data Bren rce(s) Supporting Document(s) SODIUM 140 mmol/L (136-145) [facility] POTASSIUM 3.0 mmol/L (3.6-5.2) [facility] CHLORIDE 100 mmol/L (100-108) [facility] CO2 34 mmol/L (22-31) [facility] ANION GAP 6 mmol/L (7-16) [facility] UREA NITROGEN 5 mg/dL (7-24) [facility] CREATININE 0.54 mg/dL (0.60-1.00) [facility] BUN/CREAT RATIO 9.3 RATIO (10.0-20.0) [facility] GLUCOSE 168 mg/dL (70-99) [facility] CALCIUM 8.5 mg/dL (8.4-10.2) [facility] GFR >60 ml/min/1.73m2 (>59) [facility] GFR ( AMER) >60 ml/min/1.73m2 (>59) [facility] GFR INTERPRETATION [facility] --NORMAL KIDNEY FUNCTION OR MILD DISEASE - GFR >OR= 60CHRONIC KIDNEY DISEASE - GFR 15 - 59RENAL FAILURE - GFR <15 Est. GFR calculation based on the MDRDstudy equation, which assumes a steadystate for creatinine. Est. GFR should notbe used for medication dosing. ID Date Data Source [id number] 08/31/2019 07:01:43 AM EST [facility] Name Value Range Interpretation Code Description Data Bren rce(s) Supporting Document(s) WBC 5.5 10*3/uL (4.1-11.0) [facility] RBC 3.33 10*6/uL (4.00-5.40) [facility] HGB 11.8 g/dL (12.0-16.0) [facility] HCT 34.2 % (36.0-47.0) [facility] MCV 102.6 fL (80.0-95.0) [facility] MCH 35.4 pg (27.0-32.0) [facility] MCHC 34.5 g/dL (32.0-36.0) [facility] RDW 15.7 % (10.5-14.5) [facility] PLT 281 10*3/uL (150-450) [facility] MPV 6.5 fL (7.1-10.7) [facility] ID Date Data Source [id number] 08/30/2019 05:26:52 PM EST [facility] Name Value Range Interpretation Code Description Data Bren rce(s) Supporting Document(s) POC NOVA GLU 155 mg/dL (70-99) [facility] ID Date Data Source [id number] 08/30/2019 12:36:32 PM EST [facility] Name Value Range Interpretation Code Description Data Bren rce(s) Supporting Document(s) POC NOVA GLU 231 mg/dL (70-99) [facility] ID Date Data Source [id number] 08/29/2019 06:58:01 PM EST [facility] Name Value Range Interpretation Code Description Data Bren rce(s) Supporting Document(s) POC NOVA GLU 147 mg/dL (70-99) [facility] [place] [facility] ID Date Data Source [id number] 08/29/2019 03:46:28 PM EST [facility] Name Value Range Interpretation Code Description Data Bren rce(s) Supporting Document(s) POC NOVA GLU 206 mg/dL (70-99) [facility] [place] [facility] ID Date Data Source [id number] 08/29/2019 09:04:52 AM EST [facility] Name Value Range Interpretation Code Description Data Bren rce(s) Supporting Document(s) POC NOVA GLU 177 mg/dL (70-99) [facility] ID Date Data Source [id number] 08/29/2019 10:10:09 AM EST [facility] Name Value Range Interpretation Code Description Data Bren rce(s) Supporting Document(s) SODIUM 141 mmol/L (136-145) [facility] POTASSIUM 3.6 mmol/L (3.6-5.2) [facility] CHLORIDE 105 mmol/L (100-108) [facility] CO2 29 mmol/L (22-31) [facility] ANION GAP 7 mmol/L (7-16) [facility] UREA NITROGEN 11 mg/dL (7-24) [facility] CREATININE 0.59 mg/dL (0.60-1.00) [facility] BUN/CREAT RATIO 18.6 RATIO (10.0-20.0) [facility] GLUCOSE 183 mg/dL (70-99) [facility] CALCIUM 7.9 mg/dL (8.4-10.2) [facility] GFR >60 ml/min/1.73m2 (>59) [facility] GFR ( AMER) >60 ml/min/1.73m2 (>59) [facility] GFR INTERPRETATION [facility] --NORMAL KIDNEY FUNCTION OR MILD DISEASE - GFR >OR= 60CHRONIC KIDNEY DISEASE - GFR 15 - 59RENAL FAILURE - GFR <15 Est. GFR calculation based on the MDRDstudy equation, which assumes a steadystate for creatinine. Est. GFR should notbe used for medication dosing. ID Date Data Source [id number] 08/29/2019 09:38:39 AM EST [facility] Name Value Range Interpretation Code Description Data Bren rce(s) Supporting Document(s) WBC 5.0 10*3/uL (4.1-11.0) [facility] RBC 3.32 10*6/uL (4.00-5.40) L [facility] HGB 11.8 g/dL (12.0-16.0) [facility] HCT 34.9 % (36.0-47.0) [facility] MCV 105.4 fL (80.0-95.0) [facility] MCH 35.6 pg (27.0-32.0) [facility] MCHC 33.8 g/dL (32.0-36.0) [facility] RDW 16.7 % (10.5-14.5) [facility] PLT 304 10*3/uL (150-450) [facility] MPV 6.5 fL (7.1-10.7) [facility] ID Date Data Source [id number] 08/28/2019 07:14:27 PM EST [facility] Name Value Range Interpretation Code Description Data Bren rce(s) Supporting Document(s) POC NOVA GLU 176 mg/dL (70-99) [facility] [place] STAFF ID Date Data Source [id number] 08/28/2019 02:47:19 PM EST [facility] INFORMATIONPatient MRN Name Date of Age Gend*PT [id number] 1975 43 years F IPPT Location Admission Date/Time Visit ID Attending Provider --- --- --- --- EPI ID CSN Admitting Provider [id number] ---AirwayPatient location during procedure: ORUrgency: electiveDifficult airway: [...] cmPlacement verified by: chest auscultation and + [id number]: equal breath sounds bilateralGrade view: grade I - full view of glottis Name Value Range Interpretation Code Description Data Bren rce(s) Supporting Document(s) ID Date Data Source [id number] 08/28/2019 01:42:10 PM EST [facility] Name Value Range Interpretation Code Description Data Bren rce(s) Supporting Document(s) POC NOVA GLU 238 mg/dL (70-99) [facility] ID Date Data Source [id number] 08/28/2019 12:09:02 PM EST [facility] Name Value Range Interpretation Code Description Data Bren rce(s) Supporting Document(s) POC NOVA GLU 287 mg/dL (70-99) [facility] [place] [facility] [place] PERFORMED BY [facility] CLINICAL STAFF ID Date Data Source [id number] 08/28/2019 08:38:01 AM EST [facility] Name Value Range Interpretation Code Description Data Bren rce(s) Supporting Document(s) EKG [facility] YQDJSj8mZhSAAwVtb6KoVoQdYFGcYQ8llhf0Q9Q6lPTfF4PvbEVxf6dnQ9NyM3YlPROiOKWNZT8XkCDq jb2 [file] +UBlXw3ApknqbXG+cf9gr51xeTXmEsilcF5v0FmHOp+B5q3HdpRi/Hpw7crGqj8Q5+fqLqAs4xL45g Z9aS+hNsolmB39kjK5Mmq86fsHbXrlf6h0mPkajcFX u1grqj06ZvA4BZ4MiOiiXbFzsj/1kYDfJVpLph0wRpQ9hfjghfeA+APf8/nWZH0SpNnm0G4R/jrInnvX 197keC98p/stpi36hig9DPbh0B29BO4sOqio8ySbwywgLuZ38Cvsa/9oif/eWf83L/TmX/OS/3fcee6+ ChKyeu8lzWkYGt+M5+43vZM3lpeF/2sgUyN3tIpjkj +vBieJwWkKILBzn71jp4s/hK7yu+orrm39eJ/zueM/Certified Forklift [file] YKZ3qlIc4uXwMvYYPOO0Vzm3WfYJEcZPFGYj3+BjB7YAK9eOGaSvh4ABD6ZTonKUUPAm== ID Date Data Source [id number] 08/28/2019 08:35:39 AM EST [facility] [place] [facility] Name Value Range Interpretation Code Description Data Bren rce(s) Supporting Document(s) POC NOVA GLU 188 mg/dL (70-99) [facility] [place] [facility] [place] PERFORMED BY [facility] CLINICAL STAFF ID Date Data Source [id number] 09/05/2019 10:15:05 AM EST [facility] [place] [facility] [id number]# Surgical Pathology ReportAccession #:[id number](s) ReceivedA: Ileum [...] lobulated cut surfaces. No lymph nodesare identified. Postie sections are submitted as labeled:A1. Differentially inked resection margins from shorter segmentperpendicular A2- A3. Sections of first segment to include serosal adhesions A4. Differentially inked resection margins from second segment A5-A6. Sections of small bowel from second segment to include mucosalulceration A7. Previous anastomosis A8. Large bowel mucosa adjacent to anastomosisA9. Additional section of large bowel Processed at [facility], Histopathology, [address], [place], [address].jgllmr/skl Reported: 09/05/2019Electronically Signed Out By Ty Hernández MD [facility] This report may include immunohistochemical or in-situ hybridizationresults. Testing was developed and the performance characteristicsdetermined by [facility] as required by CLIA '88. The FDAhas determined that approval for specific use is not necessary forclinical use. The quality of Hematoxylin and Eosin stains and asapplicable, for all immunohistochemical and/or special stains, includingpositive and negative controls, were reviewed and considered appropriate.ICD codes K56.609 K50.818CPT codesA: 86233G Name Value Range Interpretation Code Description Data Bren rce(s) Supporting Document(s) ID Date Data Source [id number] 08/28/2019 08:03:26 AM EST [facility] INFORMATIONPatient MRN Name Date of Age Gend*PT [id number] [address] 1975 43 years F IPPT Location Admission Date/Time Visit ID Attending [id number] 08/26/19 1601 --- kO Hester MD([id number]) EPI ID CSN Admitting Provider [id number] Ok Hester MD([id number])Pre-Procedure History and Physical:The history and physical were reviewed and no changes are noted.Ok Hester MD Name Value Range Interpretation Code Description Data [facility] rce(s) Supporting Document(s) ID Date Data Source [id number] 08/28/2019 08:09:43 AM EST [facility] [place] [facility] Name Value Range Interpretation Code Description Data Bren rce(s) Supporting Document(s) HCG, QUAL. SERUM (NEG) [facility] [place] [facility] ID Date Data Source [id number] 08/28/2019 07:53:02 AM EST [facility] [place] [facility] Name Value Range Interpretation Code Description Data Bren rce(s) Supporting Document(s) SODIUM 143 mmol/L (136-145) [facility] [place] [facility] POTASSIUM 3.6 mmol/L (3.6-5.2) [facility] [place] [facility] CHLORIDE 106 mmol/L (100-108) [facility] [place] [facility] CO2 28 mmol/L (22-31) [facility] [place] [facility] ANION GAP 9 mmol/L (7-16) [facility] [place] [facility] UREA NITROGEN 14 mg/dL (7-24) [facility] [place] [facility] CREATININE 0.60 mg/dL (0.60-1.00) [facility] [place] [facility] BUN/CREAT RATIO 23.3 RATIO (10.0-20.0) [facility] GLUCOSE 142 mg/dL (70-99) [facility] [place] [facility] CALCIUM 8.2 mg/dL (8.4-10.2) L [facility] [place] [facility] GFR >60 ml/min/1.73m2 (>59) [facility] [place] [facility] GFR ( AMER) >60 ml/min/1.73m2 (>59) [facility] [place] [facility] GFR INTERPRETATION [facility] --NORMAL KIDNEY FUNCTION OR MILD DISEASE - GFR >OR= 60CHRONIC KIDNEY DISEASE - GFR 15 - 59RENAL FAILURE - GFR <15 Est. GFR calculation based on the MDRDstudy equation, which assumes a steadystate for creatinine. Est. GFR should notbe used for medication dosing. ID Date Data Source [id number] 08/28/2019 07:44:03 AM EST [facility] [place] [facility] Name Value Range Interpretation Code Description Data Bren rce(s) Supporting Document(s) WBC 4.5 10*3/uL (4.1-11.0) [facility] [place] [facility] [place] RBC 3.49 10*6/uL (4.00-5.40) L [facility] [place] [facility] HGB 12.3 g/dL (12.0-16.0) [facility] [place] [facility] HCT 36.1 % (36.0-47.0) [facility] [place] [facility] MCV 103.6 fL (80.0-95.0) [facility] [place] [facility] MCH 35.4 pg (27.0-32.0) [facility] [place] [facility] MCHC 34.2 g/dL (32.0-36.0) [facility] [place] [facility] RDW 16.4 % (10.5-14.5) [facility] [place] [facility] PLT 288 10*3/uL (150-450) [facility] [place] [facility] MPV 6.8 fL (7.1-10.7) [facility] [place] [facility] ID Date Data Source [id number] 08/27/2019 08:33:35 PM EST [facility] [place] [facility] Name Value Range Interpretation Code Description Data Bren rce(s) Supporting Document(s) POC NOVA GLU 194 mg/dL (70-99) [facility] [place] [facility] [place] [facility] CLINICAL STAFF ID Date Data Source [id number] 08/27/2019 06:02:48 PM EST [facility] [place] [facility] Name Value Range Interpretation Code Description Data Bren rce(s) Supporting Document(s) POC NOVA GLU 216 mg/dL (70-99) [facility] [place] [facility] [place] [facility] CLINICAL STAFF ID Date Data Source [id number] 08/27/2019 01:11:00 PM EST [facility] [place] [facility] Name Value Range Interpretation Code Description Data Bren rce(s) Supporting Document(s) POC NOVA GLU 302 mg/dL (70-99) [facility] [place] [facility] [place] [facility] CLINICAL STAFF ID Date Data Source [id number] 08/27/2019 09:38:19 PM EST [facility] [place] [facility] Name Value Range Interpretation Code Description Data Bren rce(s) Supporting Document(s) HEMOGLOBIN A1C @ 10.7 % (4.0-6.0) [facility] [place] [facility] Performed using [employer].Care must be taken when interpreting DgP6vhvavhqk in patients with a hemoglobin variantor decreased erythrocyte lifespan. Values 5.7 - 6.4% suggest prediabetes.Values >=6.5% are diagnostic for diabetes.REFERENCE: DIABETES CARE 2018: 41(S13-S27).PERFORMED AT [address] [place] [address] EST AVERAGE GLUCOSE 260 mg/dL [facility] ID Date Data Source [id number] 08/27/2019 02:24:17 PM EST [facility] [place] [facility] SPEC EXP DATE 08/30/2019PATI ENT ABO/Rh B POSITIVEANTIBODY SCREEN NEGATIVETESTING SITE PERFORMED AT [address] [place] [address] [id number] BANK COMMENT BLOOD TYPE CONFIRMED. Name Value Range Interpretation Code Description Data Bren rce(s) Supporting Document(s) TYPE AND SCREEN [facility] [place] [facility] ID Date Data Source [id number] 08/27/2019 10:31:14 AM EST [facility] NT INFORMATIONPatient MRN Name Date of Age Gend*PT [id number] U[address] 1975 43 years F OBSPT Location Admission Date/Time Visit ID Attending [id number] 08/26/19 1601 --- Ok Hester MD([id number]) EPI ID CSN Admitting Provider [id number] Ok Hester MD([id number])Inpatient Consult NoteRordominic Sheffield Dr. for consult: SBOImpression and Recommendations:Principal Problem: SBO (small bowel obstruction)Active Problems: Crohn's disease Diabetes 1.SBO from ileal Crohns disease. Unable to get patient to steroid freeremission. 3rd SBO this years. I've discussed with the patient and also with Samuellin, I think at this point surgery is [...] was planning for an outpatient visitwith Dr Hseter for an elective resection.Past Medical History:Past Medical History:Diagnosis Date Crohn's disease Diabetes mellitus type 2 in obese Hypertension Nephrolithiasis kidney stones Obesity Sinusitis Sleep apnea "mild" wears a cpap at night Vitamin D deficiencyPast Surgical History:Past Surgical History:Procedure Laterality Date ANAL FISTULOTOMY N/A 09/08/2016 Procedure: DRAINAGE OF ABCESS AND FISTULOTOMY ; Surgeon: Ok Hester MD;Location: [facility]; Service: Colorectal; Laterality: N/A; ANAL FISTULOTOMY N/A 05/06/2016 Procedure: ANAL FISTULOTOMY WITH SETON PLACEMENT; Surgeon: Ok Hester MD;Location: [facility]; Service: Colorectal; Laterality: N/A; ANAL FISTULOTOMY N/A 12/29/2017 Procedure: FISTULOTOMY ANAL; Surgeon: Ok Hester MD; Laterality: N/A; APPENDECTOMY CHOLECYSTECTOMY COLONOSCOPY 2016 CYSTOSCOPY INCISION AND DRAINAGE PERIRECTAL ABSCESS N/A 01/07/2016 Procedure: INCISION AND DRAINAGE RECTAL ABSCESS; Surgeon: Ok Hester MD;Location: [facility]; Service: Colorectal; Laterality: N/A; INCISION AND DRAINAGE PERIRECTAL ABSCESS N/A 12/16/2015 Procedure: INCISION AND DRAINAGE ISCHIORECTAL ABSCESS; Surgeon: Ok Hester MD; Location: [facility]; Service: Colorectal; Laterality: N/A; INCISION AND DRAINAGE PERIRECTAL ABSCESS N/A 11/13/2015 Procedure: INCISION AND DRAINAGE RECTAL ABSCESS WITH SETON PLACEMENT ;Surgeon: Ok Hester MD; Location: [facility]; Service: Colorectal;Laterality: N/A; INCISION AND DRAINAGE PERIRECTAL ABSCESS N/A 11/17/2016 Procedure: INCISION AND DRAINAGE ISCHIORECTAL ABSCESS; Surgeon: Ok Hester MD; Location: [facility]; Service: Colorectal; Laterality: N/A; LITHOTRIPSY X3 Small Bowel Obstruction Small Bowel Resection terminal ileum resection 2001 TONSILLECTOMY & AdenoidsMedications:Medications Prior to AdmissionMedication Sig [...] mcg by mouth daily12/26/2017 vitamin D, Ergocalciferol, 00925 UNITS CAPS Take 1 capsule by mouth [...] Imaging and Other Diagnostics:Diagnostic tests reviewed:Labs from [facility] Brief:Lab ResultsComponent Value Date WBC 3.0 [...] No results found for: PROTIME, INR, APTT, YPWHHVCUIM65/30/2019: Colonoscopy. Prpe was adequate. 1 seton removed [...] prior CT scan dated on 05/16/2019.Signature: Noemi Londono, MDDate: August 27, 2019Time: 10:17 AM Name Value Range Interpretation Code Description Data Bren rce(s) Supporting Document(s) ID Date Data Source [id number] 08/27/2019 10:01:14 AM EST [facility] NT INFORMATIONPatient MRN Name Date of Age Gend*PT [id number] [address]oor[address] 1975 43 years F OBSPT Location Admission Date/Time Visit ID Attending [id number] 08/26/19 1601 --- Ok Hester MD([id number]) EPI ID CSN Admitting Provider [id number] Ok Hester MD([id number])Patient is transferred with exacerbation of her Crohn's disease. She presentswith crampy abdominal pains and nausea. She is not had any episodes of emesis.She had worsening of her symptoms while hospitalized in [place]. He has aknown history of recurrent ileal [...] is to be performed she will be int hospital for multiple days. I discussed with [...] rce(s) Supporting Document(s) ID Date Data Source [id number] 08/27/2019 09:56:46 AM EST [facility] NT INFORMATIONPatient MRN Name Date of Age Gend*PT [id number] U[address] 1975 43 years F OBSPT Location Admission Date/Time Visit ID Attending [id number] 08/26/19 1601 --- Ok Hester MD([id number]) EPI ID CSN Admitting Provider [id number] Ok Hester MD([id number]) Attestation signed by Ok Hester MD at 08/27/2019 9:56 AMSignature: Ok Hester MDDate: August 27, 2019Time: 9:56 AM --Surgical Services History&PhysicalUlysses Sheffield Dr. 1975 43 years08/26/2019 PCP: BRANDIN HUMPHRIES MDInformant: Ulysses [address] Dr[address] Reliable Yes; [facility] "I have a Small bowel obstruction"HPI: [...] AND FISTULOTOMY ; Surgeon: Ok Hester MD;Location: [facility]; Service: Colorectal; Laterality: N/A; ANAL FISTULOTOMY N/A 05/06/2016 Procedure: ANAL FISTULOTOMY WITH SETON PLACEMENT; Surgeon: Ok Hester MD;Location: [facility]; Service: Colorectal; Laterality: N/A; ANAL FISTULOTOMY N/A 12/29/2017 Procedure: FISTULOTOMY ANAL; Surgeon: Ok Hester MD; Laterality: N/A; APPENDECTOMY CHOLECYSTECTOMY COLONOSCOPY 2016 CYSTOSCOPY INCISION AND DRAINAGE PERIRECTAL ABSCESS N/A 01/07/2016 Procedure: INCISION AND DRAINAGE RECTAL ABSCESS; Surgeon: Ok Hester MD;Location: [facility]; Service: Colorectal; Laterality: N/A; INCISION AND DRAINAGE PERIRECTAL ABSCESS N/A 12/16/2015 Procedure: INCISION AND DRAINAGE ISCHIORECTAL ABSCESS; Surgeon: Ok Hester MD; Location: [facility]; Service: Colorectal; Laterality: N/A; INCISION AND DRAINAGE PERIRECTAL ABSCESS N/A 11/13/2015 Procedure: INCISION AND DRAINAGE RECTAL ABSCESS WITH SETON PLACEMENT ;Surgeon: Ok Hester MD; Location: [facility]; Service: Colorectal;Laterality: N/A; INCISION AND DRAINAGE PERIRECTAL ABSCESS N/A 11/17/2016 Procedure: INCISION AND DRAINAGE ISCHIORECTAL ABSCESS; Surgeon: Ok Hester MD; Location: [facility]; Service: Colorectal; Laterality: N/A; LITHOTRIPSY [...] mcg by mouth daily12/26/2017 vitamin D, Ergocalciferol, 46784 UNITS CAPS Take 1 capsule by mouth [...] is fair, oropharynx without exudates or lesions.Heart: U3N3Gstzp: CTA bilaterally. Respiratory effort non- labored.Abdomen: Obese, softly distended, minimally TTP RLQ, bowel sounds present, noguarding no rebound tenderness.Back: No CVA tenderness.Musculoskeletal: No muscle atrophy or weakness appreciated.Vascular/Ext: No calf tenderness or LE edema. Distal pulses intact.L abs, Imaging and other Diagnostics:Labs reviewed from [facility] 08/26/19 0539 as followsWBC 4.1H&H 12.8/38.3plt 287Cr 0.58CT abd/pelvis with IV contrastKUBChest XRAbove images on disc from [facility], Brought to imaging & awaiting uploads.Assessment [...] prophylaxisADOD: 3-4 daysCode status: Full CodeSignature: Dipika Stewart, REAJanuary 20197:06 PM Name Value Range Interpretation Code Description Data Bren rce(s) Supporting Document(s) ID Date Data Source [id number] 08/27/2019 08:01:23 AM EST [facility] [place] [facility] Name Value Range Interpretation Code Description Data Bren rce(s) Supporting Document(s) POC NOVA GLU 308 mg/dL (70-99) [facility] [place] [facility] [place] [facility] CLINICAL STAFF ID Date Data Source [id number] 08/27/2019 09:36:31 AM EST [facility] [place] [facility] Name Value Range Interpretation Code Description Data Bren rce(s) Supporting Document(s) ALBUMIN 2.9 g/dL (3.5-4.6) L [facility] [place] [facility] ID Date Data Source [id number] 08/27/2019 09:02:23 AM EST [facility] [place] [facility] Name Value Range Interpretation Code Description Data Bren rce(s) Supporting Document(s) SODIUM 138 mmol/L (136-145) [facility] [place] [facility] POTASSIUM 4.3 mmol/L (3.6-5.2) [facility] [place] [facility] CHLORIDE 100 mmol/L (100-108) [facility] [place] [facility] CO2 29 mmol/L (22-31) [facility] [place] [facility] ANION GAP 9 mmol/L (7-16) [facility] [place] [facility] UREA NITROGEN 16 mg/dL (7-24) [facility] [place] [facility] CREATININE 0.73 mg/dL (0.60-1.00) [facility] [place] [facility] BUN/CREAT RATIO 21.9 RATIO (10.0-20.0) [facility] GLUCOSE 296 mg/dL (70-99) [facility] [place] [facility] CALCIUM 8.4 mg/dL (8.4-10.2) [facility] [place] [facility] GFR >60 ml/min/1.73m2 (>59) [facility] [place] [facility] GFR ( AMER) >60 ml/min/1.73m2 (>59) [facility] [place] [facility] GFR INTERPRETATION [facility] --NORMAL KIDNEY FUNCTION OR MILD DISEASE - GFR >OR= 60CHRONIC KIDNEY DISEASE - GFR 15 - 59RENAL FAILURE - GFR <15 Est. GFR calculation based on the MDRDstudy equation, which assumes a steadystate for creatinine. Est. GFR should notbe used for medication dosing. ID Date Data Source [id number] 08/27/2019 08:38:21 AM EST [facility] [place] [facility] Name Value Range Interpretation Code Description Data Bren rce(s) Supporting Document(s) WBC 3.0 10*3/uL (4.1-11.0) L [facility] [place] [facility] [place] RBC 3.63 10*6/uL (4.00-5.40) L [facility] [place] [facility] HGB 12.8 g/dL (12.0-16.0) [facility] [place] [facility] HCT 38.1 % (36.0-47.0) [facility] [place] [facility] PERFORMED AT [address] [place] [address] N [place] [address] MCV 104.8 fL (80.0-95.0) H [facility] [place] [facility] MCH 35.3 pg (27.0-32.0) [facility] [place] [facility] MCHC 33.7 g/dL (32.0-36.0) [facility] [place] [facility] RDW 16.2 % (10.5-14.5) [facility] [place] [facility] PLT 319 10*3/uL (150-450) [facility] [place] [facility] MPV 7.1 fL (7.1-10.7) [facility] [place] [facility] Procedure Social History Code Duration Value Status Description Data Source(s ) Alcohol intake 09/01/2019 12:00:00 AM EST Yes completed [facility] Smoking 09/01/2019 12:00:00 AM EST Never smoker completed Never s andrewker [facility] Vital Signs ID Date Data Source UNK Name Value Range Interpretation Code Description Data Source(s) Body mass index (BMI) [Ratio] 41.3 kg/m2 41.3 k g/m2 [facility] ([facility]) Body weight 260.00 [lb_av] 260.00 [lb_av] [facility] T ([facility]) Body height 66.50 [in_i] 66.50 [in_i] [facility] ([facility]) 5'6.50" Heart rate 68 /min 68 /min [facility] ([facility] Diastolic blood pressure 68 mm[Hg] 68 mm[Hg] [facility] ([facility]) Systolic blood pressure 120 mm[Hg] 120 mm[Hg] [facility] ([facility]) Body mass index (BMI) [Ratio] 43.9 kg/m2 43.9 k g/m2 [facility] ([facility]) Body weight 276.00 [lb_av] 276.00 [lb_av] [facility] T ([facility]) Body height 66.50 [in_i] 66.50 [in_i] [facility] ([facility]) 5'6.50" Heart rate 76 /min 76 /min [facility] ([facility]) Diastolic blood pressure 727 mm[Hg] 727 mm[Hg] [facility] ([facility]) Systolic blood pressure 118 mm[Hg] 118 mm[Hg] [facility] ([facility]) Body mass index (BMI) [Ratio] 47.1 kg/m2 47.1 k g/m2 [facility] ([facility]) Body weight 296.00 [lb_av] 296.00 [lb_av] [facility] T ([facility]) Body height 66.50 [in_i] 66.50 [in_i] [facility] ([facility]) 5'6.50" Heart rate 82 /min 82 /min [facility] ([facility]) Diastolic blood pressure 76 mm[Hg] 76 mm[Hg] [facility] ([facility]) Systolic blood pressure 128 mm[Hg] 128 mm[Hg] [facility] ([place] [facility]) Body mass index (BMI) [Ratio] 47.9 [...] weight 296.00 [lb_av] 296.00 [lb_av] [facility] T ([facility]) Heart rate 80 /min 80 /min [facility] ([facility]) Diastolic blood pressure 78 mm[Hg] 78 mm[Hg] [facility] ([facility]) Systolic blood pressure 128 mm[Hg] 128 mm[Hg] [facility] ([facility]) Body mass index (BMI) [Ratio] 47.6 [...] Systolic blood pressure 120 mm[Hg] 120 mm[Hg] [facility] Oxygen saturation in Arterial blood by Pulse oximetry 93 % 93 % [facility] Respiratory rate 20 /min 20 /min [facility] Body temperature 36.78 Roro 36.78 Roro [facility] Heart rate 97 /min 97 /min [facility] Diastolic blood pressure 68 mm[Hg] 68 mm[Hg] [facility] Systolic blood pressure 105 mm[Hg] 105 mm[Hg] [facility] Body mass index (BMI) [Ratio] 49.55 kg/m2 49.55 kg/m2 [facility] Body weight 139.254 kg 139.254 kg [facility] Body height 167.6 cm 167.6 cm [facility] Patient Treatment Plan of Care Planned Activity Planned Date Details Description Data Source (s) Acetaminophen 325 MG / Hydrocodone Bitartrate 5 MG Ora l Tablet 09/03/2019 12:00:00 AM [facility] cefdinir 300 MG Oral Capsule 08/18/2019 12:00:00 AM EST [facility] Multiple Vitamin (MULTIVITAMIN) tablet [facility] Probiotic Product (PROBIOTIC DAILY PO) [facility] Ergocalciferol 95796 UNT Oral Capsule [facility] certolizumab pegol 200 MG Injection [facility]
[2020-08-28] MEDS ORDERED: MIDAZOLAM INJ 2MG/2ML VIAL (J2250 PER 1MG) As Ordered ONE (07:19)
[2020-08-28] MEDS ORDERED: LIDOCAINE 2% 100MG/5ML SDV (FOR ANES.) As Ordered ONE (07:19)
[2020-08-28] MEDS ORDERED: propofoL 200 MG/20 ML VIAL As Ordered ONE (07:19)
[2020-08-28] MEDS ORDERED: ROCURONIUM BROMIDE 50 MG/5 ML VIAL As Ordered ONE (07:24)
[2020-08-28] MEDS ORDERED: CONRAY-60 60% 50ML VIAL (Q9961) As Ordered ONE (07:24)
[2020-08-28] MEDS ORDERED: fentaNYL 100 MCG/2 ML INJECTION (J3010) As Ordered ONE ×2 (07:56→08:22)
--- NOTE | 2020-08-28 08:43 | REP ---
INDICATION: RIGHT URETERAL STENT PLACEMENT. COMPARISON: None. TECHNIQUE: Four views. 9 seconds of fluoroscopy time is reported. FINDINGS: A sequence of 4 last image hold fluoroscopically obtained spot radiographs of the right abdomen document right ureteral cannulation, contrast injection, and double-pigtail ureteral stent placement. IMPRESSION: Procedural imaging. <Electronically signed by Eduar Harris > 08/28/20 [id number]
[2020-08-28] MEDS ORDERED: OXYB5TAB10 PO (09:02)
[2020-08-28] MEDS ORDERED: oxyBUTYnin 5 MG TAB As Ordered ONE (09:17)
[2020-08-28] MEDS ORDERED: PERCOCET 5MG/325MG TAB As Ordered ONE (09:21)
[2020-08-28] MEDS ORDERED: HYDROMORPHONE HCL 0.5 MG/ 0.5 ML SYRINGE (J1170 PER 1) As Ordered ONE (09:31)
[2020-08-28] MEDS: HYDROMORPHONE HCL 0.5 MG/ 0.5 ML SYRINGE (J1170 PER 1) IV PRN ×2 (09:37→09:50)
[2020-08-28] MEDS ORDERED: oxyBUTYnin 5 MG TAB PO PRN (09:45)
[2020-08-28] MEDS ORDERED: ONDANSETRON 4MG/2ML VIAL IV PRN (09:45)
[2020-08-28] MEDS ORDERED: PERCOCET 5MG/325MG TAB PO PRN ×2 (09:45)
[2020-08-28] MEDS ORDERED: LR 1,000 ML IV SCH (09:45)
[2020-08-28] MEDS ORDERED: METOCLOPRAMIDE INJ 10MG/2ML VIAL (J2765 PER 1) IV PRN (09:45)
--- NOTE | 2020-08-28 09:57 | RO ---
OPERATIVE NOTE DATE OF OPERATION: 08/28/2020 PREOPERATIVE DIAGNOSIS: Kidney stone. POSTOPERATIVE DIAGNOSIS: Kidney stone. PROCEDURE: Cystoscopy, right ureteroscopy with basket extraction of stone, right retrograde pyelogram with intraoperative interpretation of images, right ureteral stent exchange. SURGEON: Christ Chiu MD SENIOR APPLICATION SOFTWARE ENGINEER: None. ANESTHESIA: General. OPERATIVE INDICATIONS: This is a 44-year-old female who came to the emergency room approximately one week ago with severe right flank pain from an approximately 4 mm obstructing proximal right ureteral stone. She had a right ureteral stent placed at that time. She is brought to the operating room today to remove her stone. DESCRIPTION OF PROCEDURE: The patient was brought to the operating room and general anesthesia induced. Prophylactic antibiotics were induced. She was placed in the dorsal lithotomy position and prepped and draped in usual sterile fashion. A rigid cystoscope was inserted into the urethral meatus and advanced into the bladder. At this point the previously placed right ureteral stent was seen. The stent was withdrawn until the distal end was protruding from the urethral meatus. A guidewire was advanced up the stent and then the stent was completely removed. A ureteral access sheath was advanced over the wire. I then went up the access sheath with a flexible ureteroscope and within the proximal ureter there was a small stone fragment adhered to the wall of the ureter. This stone fragment was removed using a basket. Of note, the stone fragment was very soft. I then examined the right kidney thoroughly. It was hydronephrotic. Very tiny stone debris was seen floating around the kidney but no large stones were seen. After searching the right kidney for approximately 15 minutes and confirming there were no residual large stones, a retrograde pyelogram was performed and it was notable for mild to moderate right hydronephrosis with no extravasation. I withdrew the ureteroscope along with access sheath and no additional stones were seen in the remainder of the ureter. Once this was done the guidewire was utilized to advance [place] x 22-32 cm JJ ureteral stent up the right collecting system. The wire was removed and there were adequate curls of the stent in right renal pelvis and in the bladder. The bladder was then emptied of all fluids and this marked the conclusion of the procedure. The patient was then taken out of dorsal lithotomy position, awakened from anesthesia and transported to the recovery room in stable condition. ESTIMATED BLOOD LOSS: 5 mL. COMPLICATIONS: None. SPECIMEN: Kidney stone. PLAN: The patient will follow up in urology clinic in approximately 1-2 weeks for stent removal. ADRIA
[2020-08-28 11:40] VITALS: BP 136/84
[2020-09-03 21:07] LABS: CA Oxalate Dihy 20 % (.); Ca Ox Monohydrate 80 % (.); Size 2x1 mm (.)
== END 2020-08-28 11:55 | disposition home or self-care (01) ==
LOC: M SDC 06:08
PROVIDERS: ATTEND Urology
DX: N20.0 Calculus of kidney (principal); E11.9 Type 2 diabetes mellitus without complications; K50.90 Crohn's disease, unspecified, without complications; D64.9 Anemia, unspecified; G47.30 Sleep apnea, unspecified; Z79.899 Other long term (current) drug therapy
CPT/HCPCS: 52332; 52352; 74420; 81025; 82365; 88300; C1769; C1894; C2617; J0690; J1170; J2250; J2405; J3010; Q9961

== ENCOUNTER 2020-10-19 16:43 | Emergency (ER) | payer BC ==
[~2020-10-19] VITALS: Ht 167.6 cm; Wt 115.5 kg
[~2020-10-19 16:43] MED LIST changes: -LR 1,000 ML IV ONE; +OXYB5TAB10 PO; -ceFAZolin SOD 2 GM in IV 1 EA IV ONE
[2020-10-19] MEDS ORDERED: ESOM40CA35 PO (17:03)
[2020-10-19] MEDS ORDERED: METF500T13 PO (17:03)
[2020-10-19] MEDS ORDERED: NS 1,000 ML IV ONE ×2 (17:10→17:55)
[2020-10-19] MEDS ORDERED: ONDANSETRON 4MG/2ML VIAL IV ONE (17:10)
[2020-10-19 17:29] LABS: HEMATOCRIT 39.9 % (36.0-47.0); HEMOGLOBIN 13.2 g/dl (12.0-15.5); LYMPH # 1.6 10^3/uL (1.5-5.0); LYMPH % 38.3 % (24.0-44.0); MEAN CORPUSCULAR HEMOGLOBIN 33.9 pg (27.0-33.0); MEAN CORPUSCULAR HGB CONC 33.1 g/dl (32.0-36.5); MEAN CORPUSCULAR VOLUME 102.6 fl (80.0-96.0); MONO # 0.3 10^3/uL (0.0-0.8); MONO % 7.6 % (2.0-8.0); NEUTROPHILS # 2.2 10^3/uL (1.5-8.5); NEUTROPHILS % 52.6 % (36.0-66.0); PLATELET COUNT, AUTOMATED 183 10^3/uL (150-450); RED BLOOD COUNT 3.89 10^6/uL (4.00-5.40); WHITE BLOOD COUNT 4.1 10^3/uL (4.0-10.0)
[2020-10-19 17:55] LABS: ALT/SGPT 43 U/L (12-78); AMYLASE 74 U/L (25-115); BILIRUBIN,DIRECT 0.5 MG/DL (0.0-0.2); BILIRUBIN,TOTAL 1.6 MG/DL (0.2-1.0); BLOOD UREA NITROGEN 5 MG/DL (7-18); CALCIUM LEVEL 8.5 MG/DL (8.5-10.1); CARBON DIOXIDE LEVEL 31 MEQ/L (21-32); CHLORIDE LEVEL 105 MEQ/L (98-107); CREATININE FOR GFR 0.55 MG/DL (0.55-1.30); GLOMERULAR FILTRATION RATE > 60.0 (>58); GLUCOSE, FASTING 284 MG/DL (70-100); LIPASE 407 U/L (73-393); POTASSIUM SERUM 3.4 MEQ/L (3.5-5.1); SODIUM LEVEL 142 MEQ/L (136-145); TOTAL PROTEIN 6.3 GM/DL (6.4-8.2)
[2020-10-19] MEDS ORDERED: ONDA4TAB6 PO (19:58)
[2020-10-19 20:00] VITALS: BP 138/83
== END 2020-10-19 20:15 | disposition home or self-care (01) ==
LOC: M ED 16:43
DX: R11.2 Nausea with vomiting, unspecified (principal); R10.9 Unspecified abdominal pain; E11.9 Type 2 diabetes mellitus without complications; K21.9 Gastro-esophageal reflux disease without esophagitis; K50.90 Crohn's disease, unspecified, without complications; Z87.442 Personal history of urinary calculi; Z87.19 Personal history of other diseases of the digestive system; Z79.899 Other long term (current) drug therapy; Z79.84 Long term (current) use of oral hypoglycemic drugs
CPT/HCPCS: 36415; 80047; 80048; 80076; 82150; 83605; 83690; 85025; 93041; 96361; 96374; 99285; J2405

== ENCOUNTER → 2020-10-20 | Outpatient (REF) | payer BC ==
[~2020-10-20] MED LIST changes: +ESOM40CA35 PO; +ONDA4TAB6 PO
== END ==
LOC: M LAB REF 14:48
DX: R19.7 Diarrhea, unspecified (principal); K50.00 Crohn's disease of small intestine without complications

== ENCOUNTER → 2020-10-28 | Outpatient (REF) | payer BC ==
[2020-10-28 17:55] LABS: FOLLICLE STIMULATING HORMONE 7.3 mIU/mL; LUTEINIZING HORMONE 6.5 mIU/mL
== END ==
LOC: M LAB REF 16:47
PROVIDERS: ATTEND Obstetrics & Gynecology
DX: N91.4 Secondary oligomenorrhea (principal)

== ENCOUNTER → 2020-11-20 | Outpatient (CLI) | payer BC ==
--- NOTE | 2020-11-20 11:27 | REPMRS ---
Patient History The patient states she has not had a clinical breast exam in over a year. Baseline Mammogram Patient is postmenopausal and is nulliparous. Family history of endometrial cancer in maternal grandmother, endometrial cancer in paternal grandmother, colorectal cancer at age 54 and endometrial cancer at age 50 or over in mother. Digital Woman Screen Mammo: November 20, 2020 - Exam #: [id number] Bilateral CC and MLO view(s) were taken. Technologist: Melissa Stroud, Technologist No prior studies available for comparison. FINDINGS: The breast tissue is almost entirely fat. The Volpara volumetric breast density category is: A. There is no evidence of dominant mass, architectural distortion, or grouped microcalcification typical of malignancy. 3-D tomosynthesis shows no additional findings. Assessment: BI-RADS/ACR category 1 mammogram. Negative Mammogram. Recommendation Routine screening mammogram of both breasts in 1 year (for women over age 40). This patient's [facility] Lifetime Breast Cancer RIsk is estimated at 11.4 %. This mammogram was interpreted with the aid of an FDA-approved computer-aided dectection system. Electronically Signed By: Eduar Harris MD 11/20/20 [id number]
--- NOTE | 2020-11-20 13:19 | REP ---
INDICATION: R93.89 ABN FINDINGS ON DX IMAGING. COMPARISON: No prior pelvic ultrasound examinations for comparison TECHNIQUE: Transvesical and transvaginal FINDINGS: The uterus measures 12.0 x 6.4 x 8.6 cm. There are no discernible parenchymal masses. The endometrial echo complex is abnormally thickened measuring 2.8 cm and is markedly heterogenous. There is no free fluid in the cul-de-sac. The right ovary measures 3 x 2 x 2.1 cm and is within normal limits with an RI of 0.36. No normal left ovarian tissue is identifiable. Seen within the left adnexa multiple anechoic structures were identified with an overall measurement of 8.3 x 8.2 x 4.3 cm. IMPRESSION: 1. Abnormal heterogenous endometrial echo complex as described above. 2. Abnormal left adnexal findings as described above. Cystic neoplasm cannot be ruled out. Consider further evaluation with pre and post gadolinium enhanced pelvic MRI if clinically relevant. <Electronically signed by Romulo Woods > 11/20/20 [id number]
== END ==
LOC: M WHC 10:02
PROVIDERS: ATTEND Obstetrics & Gynecology
DX: Z12.31 Encounter for screening mammogram for malignant neoplasm of breast (principal); R93.89 Abnormal findings on diagnostic imaging of other specified body structures

== ENCOUNTER → 2020-12-12 | Outpatient (CLI) | payer BC | LOC: M LABSMTC 08:28 | PROVIDERS: ATTEND Family Medicine | DX: Z20.828 Contact with and (suspected) exposure to other viral communicable diseases (principal); Z11.59 Encounter for screening for other viral diseases ==

== ENCOUNTER 2020-12-17 06:10 | Day surgery (SDC) | payer BC ==
[~2020-12-17] VITALS: Ht 167.6 cm; Wt 115.7 kg
[~2020-12-17 06:10] MED LIST changes: +LR 1,000 ML IV ONE
[2020-12-17] MEDS ORDERED: HumaLOG INSULIN (NovoLOG) PER UNIT SC ONE ×2 (07:10→09:00)
[2020-12-17] MEDS ORDERED: propofoL 200 MG/20 ML VIAL As Ordered ONE (07:18)
[2020-12-17] MEDS ORDERED: dexameTHASONE 4 MG/ML 1ML VIAL (J1100 PER 1MG) As Ordered ONE (07:18)
[2020-12-17] MEDS ORDERED: ONDANSETRON 4MG/2ML VIAL As Ordered ONE (07:18)
[2020-12-17] MEDS ORDERED: LIDOCAINE 2% 100MG/5ML SDV (FOR ANES.) As Ordered ONE (07:18)
[2020-12-17] MEDS ORDERED: MIDAZOLAM INJ 2MG/2ML VIAL (J2250 PER 1MG) As Ordered ONE (07:18)
[2020-12-17] MEDS ORDERED: fentaNYL 100 MCG/2 ML INJECTION (J3010) As Ordered ONE (07:18)
[2020-12-17] MEDS ORDERED: LR 1,000 ML IV SCH ×2 (08:45→08:50)
[2020-12-17] MEDS ORDERED: IBUPROFEN 600MG TAB PO PRN (08:50)
[2020-12-17] MEDS ORDERED: METOCLOPRAMIDE INJ 10MG/2ML VIAL (J2765 PER 1) IV PRN (08:50)
[2020-12-17] MEDS ORDERED: ONDANSETRON 4MG/2ML VIAL IV PRN (08:50)
[2020-12-17] MEDS ORDERED: PERCOCET 5MG/325MG TAB PO PRN (08:50)
[2020-12-17] MEDS ORDERED: fentaNYL 100 MCG/2 ML INJECTION (J3010) IV PRN (08:50)
[2020-12-17 10:07] VITALS: BP 121/72
--- NOTE | 2020-12-17 10:57 | RO ---
OPERATIVE NOTE DATE OF OPERATION: 12/17/2020 PREOPERATIVE DIAGNOSIS/INDICATIONS FOR PROCEDURE: Bleeding and abnormal sonogram. POSTOPERATIVE DIAGNOSIS: Bleeding and abnormal sonogram. PROCEDURE: Dilation and curettage (D&C), hysteroscopy, MyoSure. SURGEON: Anh Hair M.D. DEMOGRAPHER: None. ANESTHESIA: LMA. BRIEF DESCRIPTION OF PROCEDURE AND FINDINGS: Ulysses was brought to the operating room where sufficient LMA and anesthetic was induced; she was prepped and draped in position in the usual sterile fashion with the bladder emptied, the cervix carefully dilated, and the hysteroscope placed. There was a mild bit of stenosis at the internal cervical os and then either synechiae or other findings within the endometrial cavity with kind of a honeycomb appearance. This patient has Crohn's and so certainly, some infection is certainly possible related to her underlying illness or this could be some other possible lesion and so, the MyoSure light was used to carefully work our way through and resect the majority of this, but not all. Aggressive sampling was undertaken. We did have a good view of the left cervical os, but not of the right, and multiple pictures were taken to document the findings. Again, there is not a hypervascularity nor polypoid growth in this; as you can see by the pictures, but there were a couple of areas where there was a little bit more vascularity and so we were extra careful to sample more of that. Then, the resection was completed and we went ahead and did a final pass with the curettes as well, and the procedure ended. ESTIMATED BLOOD LOSS: Approximately 3 mL. FLUID REPLACEMENT: Crystalloid. COMPLICATIONS: None. CONDITION AND DISPOSITION: Ulysses tolerated the procedure well and went to the recovery room in good condition.
== END 2020-12-17 10:20 | disposition home or self-care (01) ==
LOC: M SDC 06:10
PROVIDERS: ATTEND Obstetrics & Gynecology
DX: N85.00 Endometrial hyperplasia, unspecified (principal); E11.65 Type 2 diabetes mellitus with hyperglycemia; Z79.52 Long term (current) use of systemic steroids; K50.012 Crohn's disease of small intestine with intestinal obstruction; G47.33 Obstructive sleep apnea (adult) (pediatric); Z86.16 Personal history of COVID-19; E66.01 Morbid (severe) obesity due to excess calories; Z79.84 Long term (current) use of oral hypoglycemic drugs; Z79.899 Other long term (current) drug therapy; Z88.8 Allergy status to other drugs, medicaments and biological substances
CPT/HCPCS: 58558; 81025; 88305; J1100; J2250; J2405; J3010

== ENCOUNTER → 2021-01-27 | Outpatient (CLI) | payer BC ==
[~2021-01-27] MED LIST changes: -LR 1,000 ML IV ONE; +OMEP40CA4 PO; -OMEP40CA97 PO
--- NOTE | 2021-01-27 16:49 | REPVR ---
PROCEDURE INFORMATION: Exam: CT Maxillofacial Without Contrast Exam date and time: 01/27/2021 3:17 PM Age: 45 years old Clinical indication: Maxilla pain; Additional info: Facial swelling possible abcess. Right cheek TECHNIQUE: Imaging protocol: Computed tomography images of the face without contrast. Axial and coronal reformatted images were created and reviewed. Radiation optimization: All CT scans at this facility use at least one of these dose optimization techniques: automated exposure control; mA and/or kV adjustment per patient size (includes targeted exams where dose is matched to clinical indication); or iterative reconstruction. COMPARISON: No relevant prior studies available. FINDINGS: Orbital cavity: Orbits are normal. Globes are unremarkable. Bones/joints: No acute fracture. Paranasal sinuses: Minimal ethmoid mucosal thickening. Mild left sphenoid sinus mucosal thickening. Soft tissues: Unremarkable. IMPRESSION: 1. No abscess identified. 2. Additional findings, as above. Electronically signed by: Vinay Lopez On 01/27/2021 16:48:48 PM
== END ==
LOC: M RAD 14:52
PROVIDERS: ATTEND Otolaryngology
DX: J01.00 Acute maxillary sinusitis, unspecified (principal)

== ENCOUNTER → 2021-01-27 | Outpatient (REF) | payer BC | LOC: M LAB REF 11:23 | PROVIDERS: ATTEND Otolaryngology | DX: J32.0 Chronic maxillary sinusitis (principal) ==

== ENCOUNTER → 2021-02-22 | Outpatient (REF) | payer BC ==
[~2021-02-22] MED LIST changes: +HUMA100I5 SC; +LANTINJ4 SC; +PROG1CAP8 PO; +ZOFR4TAB16 PO
[2021-02-22 13:23] LABS: PERCENT SATURATION 19.5 % (13.2-45.0)
== END ==
LOC: M LAB REF 11:51
PROVIDERS: ATTEND Internal Medicine
DX: D50.9 Iron deficiency anemia, unspecified (principal)

== ENCOUNTER 2021-02-24 08:08 | Inpatient (IN) | payer BC ==
[~2021-02-24] VITALS: Ht 167.6 cm; Wt 118.5 kg
[~2021-02-24 08:08] MED LIST changes: -HUMA100I5 SC; -LANTINJ4 SC; -PROG1CAP8 PO; -ZOFR4TAB16 PO
[2021-02-24] MEDS ORDERED: HUMA100I5 SC (08:15)
[2021-02-24] MEDS ORDERED: ZOFR4TAB16 PO (08:15)
[2021-02-24] MEDS ORDERED: LANTINJ4 SC (08:15)
[2021-02-24] MEDS ORDERED: PROG1CAP8 PO (08:17)
[2021-02-24] MEDS ORDERED: METOCLOPRAMIDE INJ 10MG/2ML VIAL (J2765 PER 1) IV ONE (08:35)
[2021-02-24] MEDS ORDERED: NS 1,000 ML IV SCH (08:35)
[2021-02-24 09:07] LABS: HEMATOCRIT 33.4 % (36.0-47.0); MEAN CORPUSCULAR HEMOGLOBIN 35.7 pg (27.0-33.0); MEAN CORPUSCULAR HGB CONC 32.9 g/dl (32.0-36.5); MEAN CORPUSCULAR VOLUME 108.4 fl (80.0-96.0); PLATELET COUNT, AUTOMATED 198 10^3/uL (150-450); RED BLOOD COUNT 3.08 10^6/uL (4.00-5.40)
--- NOTE | 2021-02-24 09:07 | REP ---
INDICATION: weakness rigors. COMPARISON: Comparison is made with chest x-ray from 26 August 2020.. TECHNIQUE: Helical scanning is acquired. 3 mm axial images are generated. Coronal and sagittal MPR and coronal MIP images are generated. FINDINGS: Digital preliminary instrument maintenance supervisor radiograph shows clips in right upper quadrant of the abdomen and EKG monitoring electrodes. The lung painting show no evidence of infiltrate, mass, cyst or significant pulmonary nodule. No atelectasis is seen. No endobronchial disease is appreciated. There is no evidence of pleural or pericardial effusion. No hilar or mediastinal mass or adenopathy is observed. No extra thoracic mass or adenopathy is seen. Normal adrenal glands are observed bilaterally. There are scattered diverticulosis changes in the splenic flexure of the colon. The visualized upper abdominal structures are otherwise unremarkable. Bone window settings show no bony destructive lesion. IMPRESSION: Negative chest CT without contrast. No evidence of infiltrate or atelectasis. Left colonic diverticulosis. Post cholecystectomy. <Electronically signed by Eduar Harris > 02/24/21 [id number]
[2021-02-24 09:38] LABS: ALBUMIN 2.5 GM/DL (3.2-5.2); ALT/SGPT 113 U/L (12-78); BILIRUBIN,DIRECT 0.7 MG/DL (0.0-0.2); BILIRUBIN,TOTAL 1.1 MG/DL (0.2-1.0); BLOOD UREA NITROGEN 8 MG/DL (7-18); CALCIUM LEVEL 8.5 MG/DL (8.5-10.1); CARBON DIOXIDE LEVEL 24 MEQ/L (21-32); CHLORIDE LEVEL 105 MEQ/L (98-107); CK-MB VALUE MASS < 1.0 NG/ML (<3.6); CPK CREATINE PHOSPHOKINASE 74 U/L (26-192); CREATININE FOR GFR 0.52 MG/DL (0.55-1.30); FREE T4 1.14 NG/DL (0.76-1.46); GLOMERULAR FILTRATION RATE > 60.0 (>58); GLUCOSE, FASTING 321 MG/DL (70-100); LIPASE 603 U/L (73-393); MB/CK RELATIVE INDEX 1.35 (< OR =4); POTASSIUM SERUM 4.3 MEQ/L (3.5-5.1); SODIUM LEVEL 138 MEQ/L (136-145); TOTAL PROTEIN 5.7 GM/DL (6.4-8.2); TROPONIN I < 0.02 NG/ML (< 0.10)
[2021-02-24 09:44] LABS: HCG, SERUM QUALITATIVE NEGATIVE (NEGATIVE)
[2021-02-24 09:52] LABS: ANISOCYTOSIS 1+; ATYPICAL LYMPH 1 % (0-5); EOSINOPHILS 1 % (0-3); LYMPHOCYTES 41 % (16-44); MONOCYTES 7 % (0-5); NEUTROPHILS 50 % (28-66); PLATELET ESTIMATE NORMAL (NORMAL)
[2021-02-24] MEDS: GASTROGRAFIN SOLUTION 30ML PO SCH ×2 (10:43→11:15)
[2021-02-24] MEDS ORDERED: ISOVUE-370 76% 100ML VIAL As Ordered ONE (12:04)
--- NOTE | 2021-02-24 12:43 | REP ---
INDICATION: epigastric pain elev lipase COMPARISON: 08/22/2020. TECHNIQUE: CT Scan of the abdomen and pelvis was performed with intravenous administration of 100 cc of Isovue 370, and oral contrast. FINDINGS: Lung bases: Unremarkable. Liver: Normal Gallbladder: Prior cholecystectomy. Spleen: Normal. Adrenals: Normal. Pancreas: Normal. Kidneys: There is a 5 mm calculus again seen at the right ureteropelvic junction. There is mild right hydronephrosis. Small and large bowel: There is scattered colonic diverticulosis without evidence of acute diverticulitis.. Partial right colectomy. Free fluid: None. Abdominal aorta: No aneurysm or dissection. Adenopathy: None. Appendix: Not inflamed. Osseous structures: There are degenerative changes of the spine without compression deformity. Pelvis: No mass. IMPRESSION: A 5 mm calculus is again seen at the right ureteropelvic junction, with mild right hydronephrosis, as seen on prior CT exam. Otherwise no acute abnormalities visualized. <Electronically signed by Shemar Oseguera > 02/24/21 0491
[2021-02-24] MEDS ORDERED: ACETAMINOPHEN TAB 650MG DOSE (2X325MG) PO PRN (14:40)
[2021-02-24] MEDS ORDERED: DEXTROSE 50% 50 ML SYRINGE IV PRN (14:40)
[2021-02-24] MEDS ORDERED: GLUCOSE 4GM CHEW TABLET PO PRN (14:40)
[2021-02-24] MEDS ORDERED: GLUCAGON INJ 1MG VIAL SC PRN (14:40)
[2021-02-24] MEDS: NS 1,000 ML IV SCH ×2 (16:05→22:16)
[2021-02-24] MEDS: PIPERACILLIN/TAZOBACTAM SOD 3.375 GM in D5W MINI-BAG PLUS 50 ML IV SCH ×2 (16:05→22:15)
[2021-02-24] MEDS: METOCLOPRAMIDE INJ 10MG/2ML VIAL (J2765 PER 1) IV PRN (16:09)
--- NOTE | 2021-02-24 17:31 | ECGEPIP ---
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
--- NOTE | 2021-02-24 17:57 | HPEPDOC ---
[facility] Medical History & Physical Date of Admission Feb 24, 2021 Date of Service: Feb 24, 2021 Attending Physician: SHOSHANA LUNA MD History and Physical CHIEF COMPLAINT: Weakness, nausea, emesis, abdominal pain, hyperglycemia HISTORY OF PRESENT ILLNESS: 44-year-old W with a history of Crohn's disease that was previously c/b perirectal fistulas s/p multiple surgeries currently on mercaptopurine and ustekinumab(Stelara) and reporting recent prolonged stability, NIDDM diagnosed in 2019 recently complicated by persistent hyperglycemia and begun insulin on 02/20/2021, obesity, history of fatty liver, GERONIMO, history of nephrolithiasis s/p recent lithotripsy for a recent R sided renal stone who presented to the ED with profound weakness, feeling poorly, nauseous, with suboptimal PO and reporting an episode of rigors without a rudolph fever the night prior to presentation and g nawing epigastric pain as well as R flank pain. She denied any chest pain, palpitations, dyspnea, rudolph fever, hematemesis, hematochezia, melena or dysuria. She reports a history of remote oligomenorrhea and was recently started progesterone that triggered menorrhagia with ongoing gynecological evaluation with a tentative plan for hysterectomy and has therefore been having painless vaginal bleeding. In the ED, she was ill appearing but otherwise hemodynamically stable, afebrile and breathing comfortably on room air. Investigations were notable for WBC of 3, hgb 11 from last prior of 13.2 in 10/2020, platelets 198, Na 138, K 4.3, bicarb of 24, BUN 8, Cr 0.52, glucose 321, while AST was 122, ALT 113, Tbili 1.1, Dbili 0.7, UA that showed 3+ blood and glucosuria, lipase of 603, lactic acidosis to 2.6, and respiratory panel that was negative. She had a CT chest that grossly unremarkable and CT A/P that showed a 5mm R ureteropelvic junction stone with mild hydronephrosis, a normal pancreas and scattered colonic diverticulosis without evidence of acute diverticulitis. She was started on IV at 150cc/hr of NS and is now being admitted to medicine for mild pancreatitis, nephrolithiasis and hyperglycemia with c/f for high risk for infection given immunosuppressed state with history of rigors and noted neutropenia. Past Medical History: Crohns disease on mercaptopurine and ustekinumab History of partial SBO NIDDM2 Morbid Obesity GERONIMO on CPAP Hx of Nephrolithiasis Vitamin B12 deficiency Hx of C. diff Fatty liver Past Surgical History: Perirectal fistula / abscess repairs (17 surgeries over the last 3 years) Bowel resection and iliocolonic anastomosis (2002) Appendectomy Laparoscopic cholecystectomy Ileocolic resection for terminal ileum stricture and SBO (2019) Ileocolic resection for terminal ileum stricture and SBO (2002) Tonsillectomy / Adenoidectomy Allergies: Carbamazepine Family History: Mother: colon cancer. 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 Speaking in full sentences HEENT: NC, AT. EOMI, MMM CVS: RRR, +S1S2, no noted murmurs or gallops Pulm: Clear to auscultation bilaterally with good inspiratory effort without wheezing, crackles or rhonchi. Abdomen: Has well healed surgical central abdominal scar as well as small lap surgical site scars. Obese. Normoactive sounds in all 4 quadrants. Soft. Tender epigastrium, described as dull and increases her nausea with palpation, negative Suarez's, no rebound or guarding. No flank pain noted at this time. Reports it to be episodic on the R side. Extremities: No lower extremity edema, no calf tenderness, WWP Neuro: No focal motor or sensory deficit, clear speech, no facial droops, no asymmetrical weakness noted Skin: No visible rashes, active lesions, erythema. Labs and Imaging: As summarized above, otherwise please see full details below. 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 Mild pancreatitis: Gnawing epigastric pain, nausea, emesis, suboptimal PO, with elevated lipase and noted leukopenia. -NPO -NS at 200cc/hr -she reports no pain at this time -PRN tylenol Q6HP for pain and fever -CT showed no cysts or necrosis with normal appearing pancreas -Discussed her presentation with pancreatitis with hx of rigors and leukopenia while on two immunosuppressants with Dr. Lopez and she agreed with empiric GI coverage, will start pip/tazo 3.325Q6H -Reglan IV PRN for nausea -will hold immunosuppressants -s/p cholecystectomy, possibly retained stone or sludge but was very remote. Will check AM triglycerides, lipase and amylase R UPJ stone with mild hydronephrosis: while reported as stable from prior, she reported having had lithotripsy after the last noted imaging and therefore this is likely a new stone -will discuss with Dr. Chiu -strict I/Os -daily BMP -renal function appears at baseline -UA was negative except for noted hematuria i/s/o ongoing menorrhagia while on progesterone DM recently started insulin therapy with persistent hyperglycemia i/s/o acute illness -Will give 10u of levemir tonight instead of the 20u she was recently taking while NPO -Q6H FSBG -Hypoglycemia protocol -SSI Q6H Acute anemia: Most likely 2/2 to the recent severe menorrhagia -menorrhagia i/s/o progesterone, and when she stopped it, the bleeding actually got worse and so had resumed --> will continue progesterone therapy per home dosing when she resumes a diet, likely tomorrow -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 and is tentatively planned to have a hysterectomy in the next few months Vit B12 deficiency: continues to have some optimal levels despite PO repletion with macrocytosis -Will discuss with her to discuss potential B12 shots in the outpatient setting given potential of malabsorption with a history of Crohn's -For now will continue PO therapy Crohn's disease: stable -Imaging without evidence of ongoing inflammation -will hold the Stelara and mercaptopurine for now in acute illness and high risk of infection -Follows with GI outpatient GERONIMO: -will ask her about CPAP use and place orders accordingly GERD: -substitute home esomeprazole with protonix IV for now Obesity: -Has recently lost >80lbs, doing well and has made dietary changes Hepatocellular LFT abnormalities: Acute on chronic -CT from a liver perspective was unremarkable -has a history of fatty liver -will monitor and check on AM labs DVT ppx: lovenox 40mg SC. Has TEDs on. Vital Signs Vital Signs Date Time Temp Pulse Resp B/P (MAP) Pulse Ox O2 Delivery O2 Flow Rate FiO2 02/24/21 12:45 85 121/68 (85) 97 02/24/21 10:45 16 02/24/21 08:51 98.3 02/24/21 08:09 Room Air Laboratory Data Labs 24H Laboratory Tests 2 02/24/21 08:45: Neutrophils (%) (Auto) , Nucleated Red Blood Cells % (auto) 0.0, Neutrophils 50, Lymphocytes (Manual) 41, Monocytes (Manual) 7H, Eosinophils (Manual) 1, Atypical Lymphocytes 1, Anisocytosis 1+, Macrocytosis 1+, Platelet Estimate NORMAL, Anion Gap 9, Glomerular Filtration Rate > 60.0, Lactic Acid Level 2.6*H, Calcium Level 8.5, Total Bilirubin 1.1H, Direct Bilirubin 0.7H, Aspartate Amino Transf (AST/SGOT) 122H, Alanine Aminotransferase (ALT/SGPT) 113H, Alkaline Phosphatase 112, Total Creatine Kinase 74, Creatine Kinase MB < 1.0, Creatine Kinase MB Relative Index 1.35, Troponin I < 0.02, Total Protein 5.7L, Albumin 2.5L, Albumin/Globulin Ratio 0.8L, Lipase 603H, Thyroid Stimulating Hormone (TSH) 2.220, Free Thyroxine 1.14, Human Chorionic Gonadotropin, Qual NEGATIVE 02/24/21 10:02: Urine Color YELLOW, Urine Appearance CLEAR, Urine pH 5.0, Urine Specific [place] 1.013, Urine Protein 1+H, Urine Glucose (UA) 3+H, Urine Ketones NEGATIVE, Urine Blood 3+H, Urine Nitrite NEGATIVE, Urine Bilirubin NEGATIVE, Urine Urobilinogen 2.0H, Urine Leukocyte Esterase NEGATIVE, Urine WBC (Auto) 6H, Urine RBC (Auto) 20H, Urine Hyaline Casts (Auto) 0, Urine Bacteria (Auto) NEGATIVE, Urine Squamous Epithelial Cells 0, Urine Mucus (Auto) SMALL, Urine Sperm (Auto) 02/24/21 13:28: Lactic Acid Followup at 4 Hours 2.0 CBC/BMP Laboratory Tests 02/24/21 08:45 Microbiology Microbiology 02/24/21 Blood Culture, Received Pending 02/24/21 Respiratory Virus Panel (PCR) ([facility]) - Final, Complete 02/24/21 Blood Culture, Received Pending Home Medications Scheduled Cyanocobalamin (Vitamin B-12) (Vitamin B-12) 1,000 Mcg Tablet, 1,000 MCG PO DAILY Esomeprazole Magnesium (Esomeprazole Magnesium Dr) 40 Mg Capsule.dr, 40 MG PO DAILY Fexofenadine HCl (Fexofenadine HCl) 180 Mg Tablet, 180 MG PO DAILY Insulin Glargine,Hum.rec.anlog (Lantus Solostar) 100 Unit/1 Ml Insuln.pen, 20 UNITS SC QHS Insulin Lispro (Humalog Kwikpen U-100) 100 Unit/1 Ml Insuln.pen, 10 UNITS SC QPM TAKEN BEFORE SUPPER Mercaptopurine (Mercaptopurine) 50 Mg Tablet, 200 MG PO DAILY Progesterone, Micronized (Progesterone) 100 Mg Capsule, 20 MG PO DAILY HAS 20MG CAPS. Semaglutide (Ozempic) 0.25 Mg/0.2 Ml Pen.injctr, 1 MG SC 1XWK SUNDAYS Ustekinumab (Stelara) 90 Mg/1 Ml Syringe, 90 MG SC EVERY 8 WEEKS NEXT DOSE DUE ON 03/03/21 Scheduled PRN Metoclopramide HCl (Metoclopramide HCl) 10 Mg Tablet, 10 MG PO QID PRN for NAUSEA OR VOMITING Ondansetron HCl (Zofran) 4 Mg Tablet, 4 MG PO Q6H PRN for nausea/vomiting Allergies Coded Allergies: carbamazepine (Verified Allergy, Intermediate, RASH, 08/27/20) A-FIB/CHADSVASC A-FIB History Current/History of A-Fib/PAF?: No Current PO Anticoag Therapy: No Age/Risk Factor Scoring CHADSVASC: CHADSVASC Response (Comments) Value Age Risk Factor Age < 65 years old 0 Gender Risk Factor Female 1 Hx of CHF No 0 Hx of HTN No 0 Hx of Stroke/TIA/or VTE No 0 Hx of Diabetes Yes 1 Hx of Vascular Disease No 0 Total 2 Treatment Treatment ordered: NONE Reason Anticoagulant not given: Not indicated/[id number] SHOSHANA LUNA MD Feb 24, 2021 15:41
[2021-02-24 18:00] VITALS: BP 128/81
[2021-02-24] MEDS: HumaLOG INSULIN (NovoLOG) PER UNIT SC SCH (18:00)
[2021-02-24] MEDS: CYANOCOBALAMIN 500 MCG TAB PO SCH (18:19)
[2021-02-24] MEDS: FEXOFENADINE 60 MG TAB PO SCH (18:19)
[2021-02-24] MEDS: ENOXAPARIN 40MG/0.4ML SYRINGE (J1650 PER 10MG) SC SCH (18:20)
[2021-02-24 20:00] VITALS: BP 129/75
[2021-02-24] MEDS ORDERED: LEVEMIR (INSULIN DETEMIR) 1 UNITS/0.01ML SC SCH ×2 (21:00)
[2021-02-24 21:34] LABS: AMYLASE 68 U/L (25-115)
[2021-02-25] MEDS: NS 1,000 ML IV SCH ×3 (03:35→09:20)
[2021-02-25] MEDS: PIPERACILLIN/TAZOBACTAM SOD 3.375 GM in D5W MINI-BAG PLUS 50 ML IV SCH ×2 (04:24→09:21)
[2021-02-25 06:00] VITALS: BP 126/79
[2021-02-25] MEDS: HumaLOG INSULIN (NovoLOG) PER UNIT SC SCH ×3 (06:00→12:27)
[2021-02-25 07:16] LABS: HEMATOCRIT 32.7 % (36.0-47.0); HEMOGLOBIN 10.8 g/dl (12.0-15.5); MEAN CORPUSCULAR HEMOGLOBIN 36.1 pg (27.0-33.0); MEAN CORPUSCULAR VOLUME 109.4 fl (80.0-96.0); PLATELET COUNT, AUTOMATED 194 10^3/uL (150-450); RED BLOOD COUNT 2.99 10^6/uL (4.00-5.40); WHITE BLOOD COUNT 3.1 10^3/uL (4.0-10.0)
[2021-02-25 08:01] LABS: ALBUMIN 2.5 GM/DL (3.2-5.2); ALT/SGPT 111 U/L (12-78); BILIRUBIN,TOTAL 1.7 MG/DL (0.2-1.0); BLOOD UREA NITROGEN 6 MG/DL (7-18); CALCIUM LEVEL 8.3 MG/DL (8.5-10.1); CARBON DIOXIDE LEVEL 25 MEQ/L (21-32); CHLORIDE LEVEL 108 MEQ/L (98-107); CREATININE FOR GFR 0.44 MG/DL (0.55-1.30); FERRITIN 104 NG/ML (8-252); GLOMERULAR FILTRATION RATE > 60.0 (>58); GLUCOSE, FASTING 115 MG/DL (70-100); IRON (FE) 112 UG/DL (50-170); LIPASE 367 U/L (73-393); MAGNESIUM LEVEL 1.8 MG/DL (1.8-2.4); PERCENT SATURATION 33.5 % (13.2-45.0); POTASSIUM SERUM 4.2 MEQ/L (3.5-5.1); SODIUM LEVEL 143 MEQ/L (136-145); TOTAL IRON BINDING CAPACITY 334 UG/DL (250-450); TOTAL PROTEIN 5.4 GM/DL (6.4-8.2); TRIGLYCERIDES LEVEL 178 MG/DL (<150)
[2021-02-25] MEDS ORDERED: PANTOPRAZOLE 40MG VIAL (C9113 PER 1) IV SCH (09:00)
[2021-02-25] MEDS: CYANOCOBALAMIN 500 MCG TAB PO SCH (09:20)
[2021-02-25] MEDS: ENOXAPARIN 40MG/0.4ML SYRINGE (J1650 PER 10MG) SC SCH (09:20)
[2021-02-25] MEDS: FEXOFENADINE 60 MG TAB PO SCH (09:20)
[2021-02-25] MEDS: METOCLOPRAMIDE INJ 10MG/2ML VIAL (J2765 PER 1) IV PRN (09:23)
--- NOTE | 2021-02-25 13:14 | DS.PDOC ---
Discharge Summary General Date of Admission Feb 24, 2021 at 14:37 Date of Discharge 02/25/2021 Attending Physician: SHOSHANA LUNA MD Discharge Summary PROCEDURES PERFORMED DURING STAY: None ADMITTING DIAGNOSES: Acute pancreatitis Hyperglycemia Abdominal pain Dehydration DISCHARGE DIAGNOSES: DM2 with hyperglycemia Mild pancreatitis Abnormal LFTs Acute blood loss anemia i/s/o exogenous progesterone driven menorrhagia R right ureteropelvic junction, with mild right hydronephrosis Dehydration Crohns disease Morbid Obesity GERONIMO on CPAP Vitamin B12 deficiency COMPLICATIONS/CHIEF COMPLAINT: Abnormal Liver Functions, Hyperglycemia, Nausea. 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 history of Crohn's disease that was previously c/b perirectal fistulas s/p multiple surgeries currently on mercaptopurine and ustekinumab(Stelara) with recent prolonged stability without flares, NIDDM diagnosed in 2019 recently complicated by persistent hyperglycemia and begun insulin on 02/20/2021, obesity, history of fatty liver, GERONIMO, history of nephrolithiasis s/p recent lithotripsy for a recent R sided renal stone who presented to the ED with profound weakness, feeling poorly for almost a week, nauseous, with suboptimal PO and reporting an episode of rigors without a rudolph fever the night prior to presentation and gnawing epigastric pain as well as R flank pain. She denied any chest pain, palpitations, dyspnea, rudolph fever, hematemesis, hematochezia, melena or dysuria. She reports a history of remote oligomenorrhea/amenorrhea and recently started progesterone that triggered menorrhagia with ongoing gynecological evaluation with a tentative plan for hysterectomy in 04/2021 and has therefore reports having painless vaginal bleeding. HOSPITAL COURSE: In the ED, she was ill appearing but otherwise hemodynamically stable, afebrile and breathing comfortably on room air. Investigations were notable for WBC of 3, hgb 11 from last prior of 13.2 in 10/2020, platelets 198, Na 138, K 4.3, bicarb of 24, BUN 8, Cr 0.52, glucose 321, while AST was 122, ALT 113, Tbili 1.1, Dbili 0.7, UA that showed 3+ blood and glucosuria, lipase of 603, lactic acidosis to 2.6, and respiratory panel that was negative. She had a CT chest that grossly unremarkable and CT A/P that showed a 5mm R ureteropelvic junction stone with mild hydronephrosis, a normal pancreas and scattered colonic diverticulosis without evidence of acute diverticulitis. She was started on IV at 200cc/hr of NS and was admitted to medicine for mild pancreatitis, nephrolithiasis and hyperglycemia with c/f for high risk for infection given immunosuppressed state with history of rigors and noted neutropenia. While on the medicine service she received IVF, empiric pip/tazo and was made NPO overnight for bowel rest. She felt so much better by morning, was hungry and had a regular diet breakfast without any noted pain, discomfort, and on labs lipase had downtrended to 300s, WBC was stable at 3.1, Hgb was also stable at 10.8 with labs showing robust bone marrow response to her anemia with a high retic index. Her LFTs remained stably elevated however with Tbili at 1.7 from 1.1, AST 145, ALT 111. Given the resolution of her symptoms, tolerance of a regular diet and no evidence of infection, I will discharge her home with close PCP follow up within the next 7d especially for repeat LFTs and CBC given the hepatocellular elevation of her LFTs though she had the same pattern in 06/2020 during an acute illness as well. She will at this time resume her home meds as prescribed including her immunosuppressants. She is to follow up with Dr. 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 With regard to anemia, she is currently having vaginal bleeding that has improved from prior and will follow up with PCP for repeat CBC and may need iron supplementation if persistent and given her ferritin is ~100 and her retic index is high and she will follow up with gynecology. Of note, I recommended that her Vit B12 supplementation return to IM injection as she appears to be malabsorbing the PO B12 with chronic supplementation but no improvement in levels and thus macrocytosis. She will discuss it with her PCP. DISCHARGE MEDICATIONS: Please see below. ALLERGIES: Please see below. PHYSICAL EXAMINATION ON DISCHARGE: VITAL SIGNS: Please see below. General: Sitting up speaking on the phone, NAD, well appearing HEENT: NC, AT. EOMI, MMM CVS: RRR, +S1S2, no noted murmurs or gallops Pulm: Clear to auscultation bilaterally with good inspiratory effort without wheezing, crackles or rhonchi. Abdomen: Has long-healed surgical central abdominal scar as well as small lap surgical site scars. Obese. Normoactive sounds in all 4 quadrants. Soft. NTND without rebound or guarding. No flank pain noted at this time. Extremities: No lower extremity edema, no calf tenderness, WWP Neuro: No focal motor or sensory deficit, clear speech, no facial droops, no asymmetrical weakness noted Skin: No visible rashes, active lesions, erythema. LABORATORY DATA: Please see below. IMAGING: CT A/P with oral and IV contrast: FINDINGS: Lung bases: Unremarkable. Liver: Normal Gallbladder: Prior cholecystectomy. Spleen: Normal. Adrenals: Normal. Pancreas: Normal. Kidneys: There is a 5 mm calculus again seen at the right ureteropelvic junction. There is mild right hydronephrosis. Small and large bowel: There is scattered colonic diverticulosis without evidence of acute diverticulitis.. Partial right colectomy. Free fluid: None. Abdominal aorta: No aneurysm or dissection. Adenopathy: None. Appendix: Not inflamed. Osseous structures: There are degenerative changes of the spine without compression deformity. Pelvis: No mass. IMPRESSION: A 5 mm calculus is again seen at the right ureteropelvic junction, with mild right hydronephrosis, as seen on prior CT exam. Otherwise no acute abnormalities vi sualized. CT chest without contrast: The lung painting show no evidence of infiltrate, mass, cyst or significant pulmonary nodule. No atelectasis is seen. No endobronchial disease is appreciated. Th ere is no evidence of pleural or pericardial effusion. No hilar or mediastinal mass or adenopathy is observed. No extra thoracic mass or adenopathy is seen. Normal adrenal glands are observed bilaterally. There are scattered diverticulosis changes in the splenic flexure of the colon. The visualized upper abdominal structures are otherwise unremarkable. Bone window settings show no bony destructive lesion. IMPRESSION: Negative chest CT without contrast. No evidence of infiltrate or atelectasis. Left colonic diverticulosis. Post cholecystectomy. PROGNOSIS: Good ACTIVITY: As tolerated DIET: Consistent carb diet DISCHARGE PLAN: Home DISPOSITION: Home DISCHARGE INSTRUCTIONS: 1. Close PCP follow up for repeat CMP and CBC within 1 week ITEMS TO FOLLOWUP ON ON OUTPATIENT: Mild pancreatitis Abnormal LFTs Anemia Vit B12 deficiency treatment R sided renal stones with mild hydronephrosis Gynecology follow up DISCHARGE CONDITION: Stable TIME SPENT ON DISCHARGE: 44 minutes. Vital Signs/I&Os Vital Signs Date Time Temp Pulse Resp B/P (MAP) Pulse Ox O2 Delivery O2 Flow Rate FiO2 02/25/21 06:00 98.7 84 21 126/79 (95) 100 Room Air I&O- Last 24 Hours up to 6 AM 02/25/21 06:00 Intake Total 3150 ml Output Total 1200 ml Balance 1950 ml Laboratory Data Labs 24H Laboratory Tests 2 02/24/21 13:28: Lactic Acid Followup at 4 Hours 2.0 02/24/21 18:18: Bedside Glucose (Misc Panel) 124H 02/25/21 00:03: Bedside Glucose (Misc Panel) 112H 02/25/21 06:28: Bedside Glucose (Misc Panel) 107H 02/25/21 07:06: Reticulocyte # (auto) 118.4H, Nucleated Red Blood Cells % (auto) 0.0, Percent Reticulocyte Count 4.0H, Reticulocyte Hemoglobin Equivalent 38.0H, Anion Gap 10, Glomerular Filtration Rate > 60.0, Lactic Acid Level 1.0, Calcium Level 8.3L, Magnesium Level 1.8, Iron Level 112, Total Iron Binding Capacity 334, Transferrin % Saturation 33.5, Ferritin 104, Total Bilirubin 1.7#H, Aspartate Amino Transf (AST/SGOT) 145H, Alanine Aminotransferase (ALT/SGPT) 111H, Alkaline Phosphatase 85, Total Protein 5.4L, Albumin 2.5L, Albumin/Globulin Ratio 0.9L, Triglycerides Level 178H, Lipase 367 02/25/21 11:30: Bedside Glucose (Misc Panel) 204H CBC/BMP Laboratory Tests 02/25/21 07:06 FSBS Laboratory Tests Test 02/24/21 18:18 02/25/21 00:03 02/25/21 06:28 02/25/21 11:30 Range/Units Bedside Glucose (Misc Panel) 124 112 107 204 70-105 MG/DL Microbiology Microbiology 02/24/21 Blood Culture, Received Pending 02/24/21 Respiratory Virus Panel (PCR) ([facility]) - Final, Complete 02/24/21 Blood Culture - Preliminary, Resulted No growth after 24 hours . All specim... Discharge Medications Scheduled Esomeprazole Magnesium (Esomeprazole Magnesium Dr) 40 Mg Capsule.dr, 40 MG PO DAILY, (Reported) Fexofenadine HCl (Fexofenadine HCl) 180 Mg Tablet, 180 MG PO DAILY, (Reported) Insulin Glargine,Hum.rec.anlog (Lantus Solostar) 100 Unit/1 Ml Insuln.pen, 20 UNITS SC QHS, (Reported) Insulin Lispro (Humalog Kwikpen U-100) 100 Unit/1 Ml Insuln.pen, 10 UNITS SC QPM, (Reported) TAKEN BEFORE SUPPER Mercaptopurine (Mercaptopurine) 50 Mg Tablet, 200 MG PO DAILY, (Reported) Progesterone, Micronized (Progesterone) 100 Mg Capsule, 20 MG PO DAILY, ( Reported) HAS 20MG CAPS. Semaglutide (Ozempic) 0.25 Mg/0.2 Ml Pen.injctr, 1 MG SC 1XWK, (Reported) SUNDAYS Ustekinumab (Stelara) 90 Mg/1 Ml Syringe, 90 MG SC EVERY 8 WEEKS, (Reported) NEXT DOSE DUE ON 03/03/21 Scheduled PRN Metoclopramide HCl (Metoclopramide HCl) 10 Mg Tablet, 10 MG PO QID PRN for NAUSEA OR VOMITING, (Reported) Ondansetron HCl (Zofran) 4 Mg Tablet, 4 MG PO Q6H PRN for nausea/vomiting, (Reported) Allergies Coded Allergies: carbamazepine (Verified Allergy, Intermediate, RASH, 08/27/20) SHOSHANA LUNA MD Feb 25, 2021 13:14
--- NOTE | 2021-02-25 13:15 | IPNPDOC ---
Text Note Date of Service The patient was seen on 02/25/21. NOTE PLEASE SEE DISCHARGE SUMMARY VS,[facility], I+O VS, [facility], I+O Laboratory Tests 02/24/21 08:45 Vital Signs Date Time Temp Pulse Resp B/P (MAP) Pulse Ox O2 Delivery O2 Flow Rate FiO2 02/25/21 06:00 98.7 84 21 126/79 (95) 100 Room Air I&O- Last 24 Hours up to 6 AM 02/25/21 05:59 Intake Total 2850 ml Output Total 1200 ml Balance 1650 ml SHOSHANA LUNA MD Feb 25, 2021 07:28
[2021-03-01 10:38] LABS: VITAMIN B12 LEVEL 567 PG/ML (247-911)
[2021-03-01 10:39] LABS: FOLATE 9.4 NG/ML (>5.4)
== END 2021-02-25 13:59 | disposition home or self-care (01) | DRG 282 ==
LOC: M ED 08:08 → M ED INP 14:37 → ENRESERV 17:20 → M MS5PR 18:05
PROVIDERS: ADMIT Internal Medicine; ATTEND Internal Medicine
DX: K85.90 Acute pancreatitis without necrosis or infection, unspecified (principal); E11.65 Type 2 diabetes mellitus with hyperglycemia; D62 Acute posthemorrhagic anemia; K50.90 Crohn's disease, unspecified, without complications; Z68.41 Body mass index [BMI] 40.0-44.9, adult; K76.0 Fatty (change of) liver, not elsewhere classified; E66.01 Morbid (severe) obesity due to excess calories; E86.0 Dehydration; N13.2 Hydronephrosis with renal and ureteral calculous obstruction; E53.8 Deficiency of other specified B group vitamins; G47.33 Obstructive sleep apnea (adult) (pediatric); K21.9 Gastro-esophageal reflux disease without esophagitis; N92.0 Excessive and frequent menstruation with regular cycle; Z79.4 Long term (current) use of insulin; Z79.899 Other long term (current) drug therapy; Z90.49 Acquired absence of other specified parts of digestive tract

== ENCOUNTER → 2021-02-26 | Outpatient (CLI) | payer BC ==
[~2021-02-26] MED LIST changes: +HUMA100I5 SC; +LANTINJ4 SC; +PROG1CAP8 PO; +ZOFR4TAB16 PO
== END ==
LOC: M LABSMTC 12:59
PROVIDERS: ATTEND Anesthesiology
DX: Z20.828 Contact with and (suspected) exposure to other viral communicable diseases (principal); Z11.59 Encounter for screening for other viral diseases

== ENCOUNTER 2021-03-03 06:00 | Day surgery (SDC) | payer BC ==
[~2021-03-03] VITALS: Ht 167.6 cm; Wt 116.0 kg
[2021-03-03] MEDS ORDERED: ceFAZolin SOD 2 GM in IV 1 EA IV ONE (06:35)
[2021-03-03] MEDS ORDERED: CONRAY-60 60% 50ML VIAL (Q9961) As Ordered ONE (07:13)
[2021-03-03] MEDS ORDERED: LIDOCAINE 2% 100MG/5ML SDV (FOR ANES.) As Ordered ONE (07:15)
[2021-03-03] MEDS ORDERED: SUGAMMADEX SODIUM 500 MG/5 ML VIAL (BRIDION) As Ordered ONE (07:15)
[2021-03-03] MEDS ORDERED: MIDAZOLAM INJ 2MG/2ML VIAL (J2250 PER 1MG) As Ordered ONE (07:15)
[2021-03-03] MEDS ORDERED: ONDANSETRON 4MG/2ML VIAL As Ordered ONE (07:15)
[2021-03-03] MEDS ORDERED: ROCURONIUM BROMIDE 50 MG/5 ML VIAL As Ordered ONE (07:15)
[2021-03-03] MEDS ORDERED: ACETAMINOPHEN 1000MG 100ML IV BTL (OFIRMEV) (J0131 PER 10MG) As Ordered ONE (07:15)
[2021-03-03] MEDS ORDERED: fentaNYL 100 MCG/2 ML INJECTION (J3010) As Ordered ONE (07:15)
[2021-03-03] MEDS ORDERED: dexameTHASONE 4 MG/ML 1ML VIAL (J1100 PER 1MG) As Ordered ONE (07:15)
[2021-03-03] MEDS ORDERED: propofoL 200 MG/20 ML VIAL As Ordered ONE (07:15)
[2021-03-03] MEDS ORDERED: KETOROLAC 60MG 2ML VIAL As Ordered ONE (07:15)
[2021-03-03] MEDS ORDERED: HumaLOG INSULIN (NovoLOG) PER UNIT SC ONE ×2 (07:20→09:20)
[2021-03-03] MEDS ORDERED: METOCLOPRAMIDE INJ 10MG/2ML VIAL (J2765 PER 1) As Ordered ONE (07:49)
[2021-03-03] MEDS ORDERED: ESMOLOL INJ 100MG/10ML VIAL As Ordered ONE (08:07)
--- NOTE | 2021-03-03 08:46 | REP ---
INDICATION: RIGHT STENT PLACEMENT. COMPARISON: CT 02/24/2021 TECHNIQUE: Two images from C-arm fluoroscopy provided Dr. Chiu of the urology division. FINDINGS: Initial image shows a catheter and wire in the ureters with the wire coiled in an upper pole calyx and small amount of contrast in the collecting system of the right kidney. Appears to be some mild caliectasis. The 2nd image shows a double pigtail stent coiled proximally in the renal pelvis and distally in the bladder. Calices are sharply defined on this study but with some residual contrast in the nondilated collecting system. I do not see definite stone along the course of the ureter. IMPRESSION: 1. Status post placement double pigtail ureteral stent as described. 2. Fluoroscopy time: 21 seconds. <Electronically signed by Tito Shell > 03/03/21 0850
[2021-03-03] MEDS ORDERED: oxyCODONE 5MG TAB PO PRN (09:20)
[2021-03-03] MEDS ORDERED: ONDANSETRON 4MG/2ML VIAL IV PRN (09:20)
[2021-03-03] MEDS ORDERED: fentaNYL 100 MCG/2 ML INJECTION (J3010) IV PRN (09:20)
[2021-03-03] MEDS ORDERED: LR 1,000 ML IV SCH (09:20)
[2021-03-03] MEDS ORDERED: PERCOCET 5MG/325MG TAB PO PRN (09:20)
[2021-03-03] MEDS ORDERED: oxyBUTYnin 5 MG TAB PO PRN (09:20)
[2021-03-03] MEDS ORDERED: MEPERIDINE INJ 25 MG/ML VIAL (J2175) IV PRN (09:20)
[2021-03-03] MEDS ORDERED: OXYB5TAB10 PO (09:27)
[2021-03-03] MEDS ORDERED: OXYC1TAB23 PO (09:27)
[2021-03-03 10:20] VITALS: BP 133/85
--- NOTE | 2021-03-03 10:50 | RO ---
OPERATIVE NOTE DATE OF OPERATION: 03/03/2021 PREOPERATIVE DIAGNOSIS: Obstructing right ureteral stone. POSTOPERATIVE DIAGNOSIS: Obstructing right ureteral stone. PROCEDURE: Cystoscopy, right ureteroscopy with laser lithotripsy and basket extraction of stones, right retrograde pyelogram with intraop interpretation of images, right ureteral stent placement. SURGEON: Christ Chiu MD TAPE FOLDING MACHINE OPERATOR: None. ANESTHESIA: General OPERATIVE INDICATIONS: This is a 45-year-old female who was found to have an obstructing 5-6 mm right ureteropelvic junction stone on CT scan. She is brought to the operating room today for treatment. DESCRIPTION OF PROCEDURE: The patient was brought to the operating room and general anesthesia was induced. Prophylactic antibiotics were infused. She was placed in the dorsal lithotomy position and prepped and draped in usual sterile fashion. Rigid cystoscope was inserted in the urethral meatus and advanced to the bladder. Guidewire was advanced up the right collecting system. I then advanced ureteral access sheath up the right collecting system. I then went up the access sheath with a flexible ureteroscope and examined the right kidney thoroughly. There was an approximately 5-6 mm stone that was found in upper pole calyx. I tried to withdraw the stone with a basket but it was too tight to come through ureteropelvic junction. I therefore fragmented the stone into smaller pieces using a 272 micron laser fiber. All the fragments were then removed using the basket. I then examined the kidney thoroughly once again and nothing remained except for very tiny stone debris. Once that was done a retrograde pyelogram was performed and notable for mild to moderate right hydronephrosis with no extravasation. I then withdrew the ureteroscope along with access sheath and no additional stones were seen inside the ureter. I then utilized the guidewire to advance a 6-[place] x 22-32 cm JJ ureteral stent up the right collecting system. The wire was removed and there were adequate curls of the stent in the right renal pelvis and in the bladder. The bladder was emptied of all fluids and this marked the conclusion of the procedure. The patient was taken out of the dorsal lithotomy position, awakened from anesthesia and transported to the recovery room in stable condition. ESTIMATED BLOOD LOSS: 5 mL. COMPLICATIONS: None. SPECIMEN: Kidney stone fragments. PLAN: The patient will follow up in urology clinic in approximately one week for stent removal. ADRIA
== END 2021-03-03 10:33 | disposition home or self-care (01) ==
LOC: M SDC 06:00
PROVIDERS: ATTEND Urology
DX: N20.1 Calculus of ureter (principal); E11.9 Type 2 diabetes mellitus without complications; G47.33 Obstructive sleep apnea (adult) (pediatric); K50.90 Crohn's disease, unspecified, without complications; Z79.4 Long term (current) use of insulin; Z79.899 Other long term (current) drug therapy; Z88.8 Allergy status to other drugs, medicaments and biological substances
CPT/HCPCS: 52356; 74420; 82365; 88300; C1769; C2617; J0131; J0690; J1100; J1885; J2250; J2405; J2765; J3010; Q9961

== ENCOUNTER → 2021-03-10 | Outpatient (REF) | payer BC | LOC: M LAB REF 16:25 | PROVIDERS: ATTEND Internal Medicine | DX: K85.90 Acute pancreatitis without necrosis or infection, unspecified (principal); D64.9 Anemia, unspecified ==

== ENCOUNTER → 2021-04-10 | Outpatient (CLI) | payer BC | LOC: M LABSMTC 10:16 | PROVIDERS: ATTEND Anesthesiology | DX: Z01.812 Encounter for preprocedural laboratory examination (principal); Z11.52 Encounter for screening for COVID-19 ==

== ENCOUNTER 2021-04-15 08:37 | Day surgery (SDC) | payer BC ==
[~2021-04-15] VITALS: Ht 167.6 cm; Wt 117.0 kg
[~2021-04-15 08:37] MED LIST changes: +LIDOCAINE 1% MDV 20ML VIAL SQ PRN
[2021-04-15 09:12] LABS: HEMATOCRIT 38.5 % (36.0-47.0); HEMOGLOBIN 12.3 g/dl (12.0-15.5); MEAN CORPUSCULAR HEMOGLOBIN 32.5 pg (27.0-33.0); MEAN CORPUSCULAR HGB CONC 31.9 g/dl (32.0-36.5); MEAN CORPUSCULAR VOLUME 101.6 fl (80.0-96.0); PLATELET COUNT, AUTOMATED 183 10^3/uL (150-450); RED BLOOD COUNT 3.79 10^6/uL (4.00-5.40); WHITE BLOOD COUNT 4.6 10^3/uL (4.0-10.0)
[2021-04-15] MEDS ORDERED: ceFAZolin SOD 2 GM in IV 1 EA IV ONE (09:35)
[2021-04-15] MEDS ORDERED: LR 1,000 ML IV ONE (09:35)
[2021-04-15] MEDS ORDERED: MIDAZOLAM INJ 2MG/2ML VIAL (J2250 PER 1MG) As Ordered ONE (09:37)
[2021-04-15] MEDS ORDERED: fentaNYL 100 MCG/2 ML INJECTION (J3010) As Ordered ONE ×3 (09:37→14:50)
[2021-04-15] MEDS ORDERED: HumaLOG INSULIN (NovoLOG) PER UNIT SC ONE ×2 (09:40→16:00)
[2021-04-15] MEDS ORDERED: dexameTHASONE 4 MG/ML 1ML VIAL (J1100 PER 1MG) As Ordered ONE (10:38)
[2021-04-15] MEDS ORDERED: ONDANSETRON 4MG/2ML VIAL As Ordered ONE ×2 (10:39→14:46)
[2021-04-15] MEDS ORDERED: METOCLOPRAMIDE INJ 10MG/2ML VIAL (J2765 PER 1) As Ordered ONE (10:39)
[2021-04-15] MEDS ORDERED: ROCURONIUM BROMIDE 50 MG/5 ML VIAL As Ordered ONE ×2 (10:40→11:19)
[2021-04-15] MEDS ORDERED: propofoL 200 MG/20 ML VIAL As Ordered ONE ×2 (10:40→13:18)
[2021-04-15] MEDS ORDERED: ACETAMINOPHEN 1000MG 100ML IV BTL (OFIRMEV) (J0131 PER 10MG) As Ordered ONE (10:41)
[2021-04-15] MEDS ORDERED: HYDROmorphone HCL 2 MG/ML 1ML VIAL (J1170) As Ordered ONE (10:50)
[2021-04-15] MEDS ORDERED: LIDOCAINE 2% 100MG/5ML SDV (FOR ANES.) As Ordered ONE (11:11)
[2021-04-15] MEDS ORDERED: PHENYLephrine 500MCG 5ML (100MCG/ML) SYRINGE As Ordered ONE (11:28)
[2021-04-15] MEDS ORDERED: ePHEDrine SULFATE 25 MG/5 ML(5MG/ML) SYRINGE As Ordered ONE (11:32)
[2021-04-15] MEDS ORDERED: SEVOFLURANE INHAL SOLN 250 ML BTL As Ordered ONE (12:22)
[2021-04-15] MEDS: LR 1,000 ML IV SCH ×2 (12:35→15:10)
[2021-04-15] MEDS ORDERED: VECURONIUM BROMIDE 10MG VIAL As Ordered ONE (13:15)
[2021-04-15] MEDS ORDERED: HumaLOG INSULIN (NovoLOG) PER UNIT As Ordered ONE (13:30)
[2021-04-15] MEDS ORDERED: ceFAZolin 2 GM/D5W 50 ML IV BAG (J0690 PER 500MG) As Ordered ONE (14:15)
[2021-04-15] MEDS ORDERED: HYDROMORPHONE HCL 0.5 MG/ 0.5 ML SYRINGE (J1170 PER 1) IV PRN (15:00)
[2021-04-15] MEDS ORDERED: ONDANSETRON 4MG/2ML VIAL IV PRN (15:00)
[2021-04-15] MEDS ORDERED: oxyCODONE 5MG TAB PO PRN (15:00)
[2021-04-15] MEDS ORDERED: LR 1,000 ML IV SCH (15:00)
[2021-04-15] MEDS ORDERED: fentaNYL 100 MCG/2 ML INJECTION (J3010) IV PRN (15:00)
[2021-04-15] MEDS ORDERED: IBUPROFEN 600MG TAB PO PRN (15:10)
[2021-04-15] MEDS ORDERED: MORPHINE 1MG/ML IN 0.9% NACL 100ML IV BAG As Ordered ONE (15:19)
[2021-04-15] MEDS ORDERED: MORPHINE 1MG/ML IN 0.9% NACL 100ML IV BAG IV PRN (15:30)
[2021-04-15] MEDS ORDERED: NALOXONE INJ 0.4MG/1ML VIAL (J2310 PER 1MG) IV PRN (15:30)
[2021-04-15] MEDS ORDERED: NALBUPHINE HCL 10 MG/ML AMP (J2300) IV PRN (15:30)
[2021-04-15] MEDS ORDERED: EPIDURAL/PCA KEYS XX PRN (15:30)
[2021-04-15] MEDS ORDERED: diphenhydrAMINE 50MG/ML VIAL (J1200) IV PRN (15:30)
[2021-04-15] MEDS ORDERED: NS 1,000 ML IV SCH (15:30)
[2021-04-15] MEDS ORDERED: PROMETHAZINE INJ 25 MG/ML VIAL (J2550) IV ONE ×2 (16:00→16:15)
[2021-04-15 17:30] VITALS: BP 139/88
[2021-04-15 18:00] VITALS: BP 140/88
[2021-04-15 19:00] VITALS: BP 147/92
[2021-04-15 19:52] VITALS: BP 145/91
[2021-04-15] MEDS ORDERED: GLUCAGON INJ 1MG VIAL SC PRN (20:20)
[2021-04-15] MEDS ORDERED: LEVEMIR (INSULIN DETEMIR) 1 UNITS/0.01ML SC ONE (20:20)
[2021-04-15] MEDS ORDERED: DEXTROSE 50% 50 ML SYRINGE IV PRN (20:20)
[2021-04-15] MEDS ORDERED: GLUCOSE 4GM CHEW TABLET PO PRN (20:20)
[2021-04-15] MEDS ORDERED: HumaLOG INSULIN (NovoLOG) PER UNIT SC SCH ×2 (21:00)
[2021-04-15 22:21] VITALS: BP 119/67
[2021-04-16 01:51] VITALS: BP 121/69
[2021-04-16] MEDS ORDERED: NORCO, ANEXSIA 5/325MG TABLET (HYDROcodone/ACETAMINOPHEN) PO PRN (06:00)
[2021-04-16 06:40] VITALS: BP 146/83
[2021-04-16] MEDS: LR 1,000 ML IV SCH (07:10)
--- NOTE | 2021-04-16 07:20 | RO ---
OPERATIVE NOTE DATE OF OPERATION: 04/15/2021 PREOPERATIVE DIAGNOSIS/INDICATIONS FOR SURGERY: Pain, bleeding, endometrial hyperplasia, significant family history for cancer, and also significant personal history of Crohn's with expectation of extensive adhesions, previous bowel resection, et cetera. POSTOPERATIVE DIAGNOSIS: Pain, bleeding, endometrial hyperplasia, significant family history for cancer, and also significant personal history of Crohn's with expectation of extensive adhesions, previous bowel resection, et cetera with extensive adhesions, lysis of adhesions took the majority of the case and definitely added to the procedure, and the uterus was enlarged at 350 grams. PROCEDURE: Robotic-assisted hysterectomy, bilateral salpingo-oophorectomy and lysis of adhesions with removal of enlarged uterus, 350 grams. SURGEON: Anh Hair MD CASCARA BARK CUTTER: Rhona Correa ANESTHESIA: General endotracheal anesthesia. BRIEF DESCRIPTION OF PROCEDURE AND FINDINGS: Ulysses was brought to the operating room where sufficient general endotracheal anesthesia was induced. She was prepped, draped and positioned in the usual sterile fashion. The uterine manipulator placed and Bal with the ability to back-fill placed. Attention was turned to the abdomen. She does have already some surgical scarring but a transverse subumbilical incision was made for the laparoscope and sharp and blunt dissection were continued through subcutaneous tissues to the level of the rectus fascia, which was elevated transversely, incised and secured with 0 Vicryl suture at this point in the case and then the peritoneum carefully entered. We had several layers of adhesions to work through as we worked our way to the peritoneum. An open laparoscopic technique without a Veress needle was used as is my typical but we progressed very slowly because there was an expectation of adhesions and surely the exam was consistent with that. Then, eventually entered the abdomen and under direct visualization used the S retractors to visualize and we could see and palpate that there were nearby adhesions but it did not appear that we had injured bowel or entered into a bowel cavity on the way into the abdomen and so trocar was placed and CO2 insufflation then begun. Initial attempt to visualize with the camera was quite difficult. Multiple pictures were taken. There is extensive adhesions in multiple directions but we were able to get the ports in on the patient's left side. We did not have any visualization of the right side to start the case so we moved the camera over to one of the two ports on the left side and then using cold scissors through the other port on the left side, dissected down some of those adhesions. Now, there are adhesions above the umbilicus of the bowel flatly adherent to the anterior abdominal wall. We did not bring down that loop of bowel. It is clearly distorted from its normal location. There are also other adhesions of the upper abdomen. We did not disturb those in this patient with Crohn's and an expectation of bowel inflammation and adhesions but the lower abdominal adhesions were obstructing our access to the pelvis. We could not get view of the uterus at all to start with even though it sounded to 10 cm and so it was a good size uterus. We used the cold scissors and dissected on the side of the anterior peritoneal layer rather than on the adhesions. We did not find any hernias per se but there definitely were dense, extensive adhesions. This took well over two hours. There are time stamps on the pictures so it may be possible to extrapolate from that but the majority of the case was actually lysis of adhesions. But, with gradual, careful progression we were, without using cautery, able to free most of those adhesions. Because they were so close to bowel, I was reluctant to use cautery and so we simply went as slowly as needed and in a couple spots, as noted in the pictures, we did end up exiting the peritoneal cavity to dissect across the top of some of the adhesions and then entering back into the peritoneal cavity but there were again no hernias per se and with that careful dissection, we were eventually able to gain access to the right side, get a right-sided port in and go ahead and dock the robot, and then continue the dissection of adhesions further using the robot, and with that we did have some areas of the omentum that we did end up cauterizing because they were oozing after they were dissected. We did not have oozing from the anterior abdominal wall. We checked that at the end of the case as well. And, we did also have adhesions over the left adnexa, extensive intestinal adhesions there which carefully, again, cut down cold as needed and only used cautery when we were unable to avoid it. And, we also had adhesions of the bladder to the anterior uterine surface which was not expected given the expectation that it was her Crohn's creating much of this inflammatory process. Nevertheless, those adhesions also had to be taken down. When we had freed the infundibulopelvic on the left side finally from those adhesions, we went ahead and cauterized it using bipolar cautery and then transected it, and continued that dissection through the broad ligament working towards the round, carefully cauterized and transected it as well and then worked medially on the anterior and posterior leaflets of the broad to come back over uterus. We came in over her fairly insubstantial uterosacral ligaments but we worked medial to those and we were able to see the course of the ureters and we also created the left-hand size of the bladder flap and brought down those adhesions. We used the Bal with the ability to back-fill as needed to identify the location of bladder, and there were some adhesions in that side that we later had to use cautery with, but at this point we could work most of that without excepting, of course, the vascular pedicles. We then turned our attention to the right side where the infundibulopelvic ligament on the right side was isolated, cauterized, transected and then the mesentery of the ovary further dissected working through the broad ligament towards the round and carefully cauterized and transected it, and then worked the anterior leaflet of that right-sided broad ligament to connect to the previous dissection for the bladder flap and, of course, worked medially in the posterior peritoneal surface to again free the ureter there and work back toward the uterine vasculature. When we had dissected round ligaments and broad ligament bilaterally and developed the bladder flap, we could see the cup of the uterine manipulator. We did have quite a bit of dissection anteriorly to do and on the posterior left, there were further adhesions against the lateral aspect to the uterus that had to come down to free that ureter further away from the field of dissection but we were able to carefully do that and then isolate the uterine vasculature which was cauterized bilaterally and then we transected this, made the initial colpotomy anteriorly, worked our way around the uterus at the base of the cervix until the uterus with the attached ovaries and tubes was freed. The uterus was moderately enlarged and we were able to deliver it into the vagina but it was fairly snug at the introitus and so we went ahead and delivered the cervix through the introitus and then carefully transected the uterus so as to diminish the volume that had to come through the introitus at once. She did have a little abrasion on the posterior vaginal wall despite this effort but no full-thickness laceration. The uterus and ovaries and tubes were removed fully before the closure of the cuff, and this weighed 350 grams. Moistened lap pad in the vagina was used to maintain pneumo and then going back to work robotically, the vaginal cuff was closed with V-Loc suture in two portions. We were careful to get the edge of the vaginal epithelium incorporated and to get good angle stitches to control the vasculature. We had good approximation and hemostasis after the closure using two sutures. We then irrigated and reevaluated the pelvis, and all of the sites of dissection; confirmed again that there was no persistent bleeding. We had good hemostasis. There was no evidence of injury to the bowel, bladder or the ureters thankfully, and we had already put the fascial stitches at the umbilicus so we did not have to sew again at that spot and take any risk of injuring those supraumbilical loops of bowel and we, of course, closed that 1 cm port but the smaller ports we closed at the skin with 3-0 Vicryl in a subcuticular stitch as we did the umbilical stitch as well but we used the 0 Vicryl suture of the retention stitch in the fascia at the umbilicus. Of course, we removed the instruments and allowed the CO2 to escape prior to closure. After closure of the wounds and good hemostasis and approximation was confirmed, the dry, sterile dressings were applied and the procedure ended. ESTIMATED BLOOD LOSS: For the procedure was about 150 mL. FLUID REPLACEMENT: Crystalloid. COMPLICATIONS: None other than enlarged uterus and those extensive adhesions which took the majority of the time for the case and certainly were not merely incidental. CONDITION AND DISPOSITION: Ulysses tolerated the procedure well and was recovering in the recovery room in good condition.
[2021-04-16 07:29] LABS: HEMATOCRIT 31.4 % (36.0-47.0); MEAN CORPUSCULAR HEMOGLOBIN 32.5 pg (27.0-33.0); MEAN CORPUSCULAR HGB CONC 31.2 g/dl (32.0-36.5); PLATELET COUNT, AUTOMATED 138 10^3/uL (150-450); RED BLOOD COUNT 3.02 10^6/uL (4.00-5.40); WHITE BLOOD COUNT 4.5 10^3/uL (4.0-10.0)
[2021-04-16] MEDS ORDERED: HumaLOG INSULIN (NovoLOG) PER UNIT SC SCH (07:30)
[2021-04-16 07:49] LABS: HEMOGLOBIN 9.8 g/dl (12.0-15.5)
[2021-04-16] MEDS ORDERED: PANTOPRAZOLE 40MG TAB (PROTONIX) PO SCH (09:00)
[2021-04-16] MEDS ORDERED: ONDANSETRON 4 MG TAB PO SCH (09:00)
== END 2021-04-16 10:55 | disposition home or self-care (01) ==
LOC: M SDC 08:37 → M MS5PR 17:10 → M SDC 04-16 10:55
PROVIDERS: ATTEND Obstetrics & Gynecology
DX: N85.00 Endometrial hyperplasia, unspecified (principal); N93.9 Abnormal uterine and vaginal bleeding, unspecified; K66.0 Peritoneal adhesions (postprocedural) (postinfection); K50.90 Crohn's disease, unspecified, without complications; E11.9 Type 2 diabetes mellitus without complications; G47.33 Obstructive sleep apnea (adult) (pediatric); Z79.4 Long term (current) use of insulin; Z79.899 Other long term (current) drug therapy; Z88.8 Allergy status to other drugs, medicaments and biological substances
CPT/HCPCS: 36415; 49329; 58573; 81025; 82947; 85027; 86850; 86900; 86901; 88307; J0131; J0690; J1170; J2250; J2370; J2405; J2765; J3010; S2900

== ENCOUNTER → 2021-04-29 | Outpatient (REF) | payer BC ==
[~2021-04-29] MED LIST changes: -LIDOCAINE 1% MDV 20ML VIAL SQ PRN
== END ==
LOC: M SFHCPLAZ 14:12
PROVIDERS: ATTEND Internal Medicine Infectious Disease
DX: R19.7 Diarrhea, unspecified (principal)

== ENCOUNTER → 2021-06-09 | Outpatient (REF) | payer BC ==
[2021-06-09 18:12] LABS: BASO % 0.2 % (0.0-1.0); EOS # 0.1 10^3/uL (0.0-0.5); EOS % 0.8 % (0.0-3.0); HEMATOCRIT 40.7 % (36.0-47.0); HEMOGLOBIN 12.8 g/dl (12.0-15.5); LYMPH # 2.2 10^3/uL (1.5-5.0); LYMPH % 35.4 % (24.0-44.0); MEAN CORPUSCULAR HEMOGLOBIN 29.6 pg (27.0-33.0); MEAN CORPUSCULAR HGB CONC 31.4 g/dl (32.0-36.5); MEAN CORPUSCULAR VOLUME 94.2 fl (80.0-96.0); MONO # 0.5 10^3/uL (0.0-0.8); MONO % 7.7 % (2.0-8.0); NEUTROPHILS # 3.5 10^3/uL (1.5-8.5); NEUTROPHILS % 55.6 % (36.0-66.0); PLATELET COUNT, AUTOMATED 251 10^3/uL (150-450); RED BLOOD COUNT 4.32 10^6/uL (4.00-5.40); WHITE BLOOD COUNT 6.2 10^3/uL (4.0-10.0)
[2021-06-09 18:46] LABS: ALBUMIN 3.1 GM/DL (3.2-5.2); ALT/SGPT 47 U/L (12-78); AMYLASE 70 U/L (25-115); BILIRUBIN,TOTAL 1.4 MG/DL (0.2-1.0); BLOOD UREA NITROGEN 8 MG/DL (7-18); CALCIUM LEVEL 9.8 MG/DL (8.5-10.1); CARBON DIOXIDE LEVEL 26 MEQ/L (21-32); CHLORIDE LEVEL 103 MEQ/L (98-107); CREATININE FOR GFR 0.52 MG/DL (0.55-1.30); GLOMERULAR FILTRATION RATE > 60.0 (>58); GLUCOSE, FASTING 249 MG/DL (70-100); LIPASE 310 U/L (73-393); SODIUM LEVEL 139 MEQ/L (136-145)
== END ==
LOC: M LAB REF 17:39
PROVIDERS: ATTEND Internal Medicine
DX: D64.9 Anemia, unspecified (principal); K85.90 Acute pancreatitis without necrosis or infection, unspecified; K50.012 Crohn's disease of small intestine with intestinal obstruction; E11.65 Type 2 diabetes mellitus with hyperglycemia

== ENCOUNTER → 2021-06-24 | Outpatient (REF) | payer BC ==
[2021-06-24 17:07] LABS: C REACTIVE PROTEIN QUANTITATIV 0.41 MG/DL (0.00-0.30)
[2021-06-24 17:46] LABS: CA19-9 TUMOR MARKER,CARBOHYDRA 27.8 U/ML (<35.0)
== END ==
LOC: M LAB REF 16:21
PROVIDERS: ATTEND Internal Medicine
DX: R50.9 Fever, unspecified (principal); R53.81 Other malaise

== ENCOUNTER → 2021-06-25 | Outpatient (CLI) | payer BC ==
[~2021-06-25] MED LIST changes: +ISOVUE-370 76% 100ML VIAL As Ordered ONE
--- NOTE | 2021-06-25 18:11 | REP ---
INDICATION: PANCREATITIS. COMPARISON: 02/24/2021 TECHNIQUE: Axial contrast-enhanced images from the lung bases to the pubic symphysis using 100 cc Isovue 370 intravenous contrast material. Coronal and sagittal reformations obtained. This CT examination was performed using the following dose reduction techniques: Automated exposure control, adjustment of mA and/or kv according to the patient's size, and the use of iterative reconstruction technique. FINDINGS: Lung bases are essentially clear. Visualized heart and pericardium are normal. Liver demonstrates diffuse hepatosteatosis without focal hepatic lesion. Spleen, bilateral adrenal glands and kidneys are normal. Pancreas is normal in appearance and homogeneous in parenchymal enhancement. No peripancreatic inflammatory stranding, adenopathy, fluid or cystic changes are appreciated. The enteric system is without obstruction or acute inflammatory process. Evidence for prior partial resection in the right mid/lower abdomen noted. Scattered colonic diverticula are identified without acute diverticulitis. Pelvis demonstrates normal bladder and evidence for prior hysterectomy. No ascites. No free air. No intraperitoneal or retroperitoneal adenopathy. Abdominal aorta and vasculature appear normal. Musculoskeletal structures demonstrate chronic degenerative changes of the lower lumbar spine with normal alignment and lordosis. IMPRESSION: 1. Hepatosteatosis. 2. Pancreas appears normal. 3. No acute abdominopelvic pathology appreciated. <Electronically signed by Torrey Bales > 06/25/21 [id number]
== END ==
LOC: M RAD 17:21
PROVIDERS: ATTEND Internal Medicine
DX: K85.90 Acute pancreatitis without necrosis or infection, unspecified (principal); K76.0 Fatty (change of) liver, not elsewhere classified
CPT/HCPCS: 74177; Q9967

== ENCOUNTER → 2021-07-13 | Outpatient (REF) ==
[~2021-07-13] MED LIST changes: -ISOVUE-370 76% 100ML VIAL As Ordered ONE
== END ==
LOC: M EMP 08:41
PROVIDERS: ATTEND Family Medicine
DX: Z20.822 Contact with and (suspected) exposure to COVID-19 (principal)

== ENCOUNTER → 2021-07-23 | Outpatient (REF) | payer BC ==
[~2021-07-23] MED LIST changes: +CARA1TAB6 PO; +CVS2500C PO; -D 202000 PO; +JARD1TAB PO; +PRED10PA PO; +TOUJ300I2 SQ; +VITA200032 PO
== END ==
LOC: M LAB REF 16:09
PROVIDERS: ATTEND Internal Medicine
DX: M25.50 Pain in unspecified joint (principal)

== ENCOUNTER → 2021-07-28 | Outpatient (CLI) | payer BC ==
[~2021-07-28] MED LIST changes: -CARA1TAB6 PO; -CVS2500C PO; +D 202000 PO; -JARD1TAB PO; -PRED10PA PO; -TOUJ300I2 SQ; -VITA200032 PO
--- NOTE | 2021-07-28 19:32 | REPVR ---
PROCEDURE INFORMATION: Exam: CT Maxillofacial Without Contrast Exam date and time: 07/28/2021 6:03 PM Age: 45 years old Clinical indication: Maxilla pain; Additional info: Recurrent pain swelling maxilloary sinus area TECHNIQUE: Imaging protocol: Computed tomography images of the face without contrast. Radiation optimization: All CT scans at this facility use at least one of these dose optimization techniques: automated exposure control; mA and/or kV adjustment per patient size (includes targeted exams where dose is matched to clinical indication); or iterative reconstruction. COMPARISON: CT BRAIN LAB SINUSES 01/27/2021 3:10 PM FINDINGS: Ostiomeatal complexes are bilaterally patent. Paranasal sinuses show no mucosal thickening, fluid level or mass. No bony sclerosis present to indicate chronic sinusitis. Nasal septum shows no marked spurring. No sofie bullosa deformity. No soft tissue asymmetry of the posterior nasopharynx. No osseous destructive process. IMPRESSION: Unremarkable CT of the paranasal sinuses. No evidence of inflammatory sinusitis. Electronically signed by: Rodo Estrada On 07/28/2021 19:31:26 PM
== END ==
LOC: M RAD 17:46
PROVIDERS: ATTEND Internal Medicine
DX: J01.90 Acute sinusitis, unspecified (principal)

== ENCOUNTER → 2021-08-05 | Outpatient (REF) ==
[2021-08-05 16:08] LABS: RSV AMPLIFICATION NEGATIVE (NEGATIVE)
== END ==
LOC: M EMP 15:14
PROVIDERS: ATTEND Family Medicine
DX: Z11.52 Encounter for screening for COVID-19 (principal)

== ENCOUNTER 2021-08-27 10:55 | Emergency (ER) | payer BC ==
[~2021-08-27] VITALS: Ht 170.2 cm; Wt 117.9 kg
[~2021-08-27 10:55] MED LIST changes: -D 202000 PO; +VITA200032 PO
[2021-08-27] MEDS ORDERED: PRED10PA PO (11:25)
[2021-08-27] MEDS ORDERED: INSUHUMDS SC (11:25)
[2021-08-27] MEDS ORDERED: TOUJ300I2 SQ (11:25)
[2021-08-27] MEDS ORDERED: ONDANSETRON 4MG/2ML VIAL IV ONE (11:35)
[2021-08-27] MEDS ORDERED: NS 1,000 ML IV ONE (11:35)
[2021-08-27 11:58] LABS: BASO % 0.2 % (0.0-1.0); EOS % 0.5 % (0.0-3.0); HEMATOCRIT 42.9 % (36.0-47.0); HEMOGLOBIN 13.2 g/dl (12.0-15.5); LYMPH # 0.9 10^3/uL (1.5-5.0); LYMPH % 21.1 % (24.0-44.0); MEAN CORPUSCULAR HEMOGLOBIN 32.4 pg (27.0-33.0); MEAN CORPUSCULAR HGB CONC 30.8 g/dl (32.0-36.5); MEAN CORPUSCULAR VOLUME 105.4 fl (80.0-96.0); MONO # 0.3 10^3/uL (0.0-0.8); MONO % 6.5 % (2.0-8.0); NEUTROPHILS % 70.1 % (36.0-66.0); PLATELET COUNT, AUTOMATED 270 10^3/uL (150-450); RED BLOOD COUNT 4.07 10^6/uL (4.00-5.40); WHITE BLOOD COUNT 4.3 10^3/uL (4.0-10.0)
[2021-08-27] MEDS: GASTROGRAFIN SOLUTION 30ML PO SCH ×2 (12:06→12:35)
[2021-08-27 12:22] LABS: HCG, SERUM QUALITATIVE NEGATIVE (NEGATIVE)
[2021-08-27 12:24] LABS: ALBUMIN 2.8 GM/DL (3.2-5.2); ALT/SGPT 77 U/L (12-78); AMYLASE 127 U/L (25-115); BILIRUBIN,DIRECT 1.5 MG/DL (0.0-0.2); BILIRUBIN,TOTAL 2.3 MG/DL (0.2-1.0); BLOOD UREA NITROGEN 11 MG/DL (7-18); CALCIUM LEVEL 9.1 MG/DL (8.5-10.1); CARBON DIOXIDE LEVEL 25 MEQ/L (21-32); CHLORIDE LEVEL 102 MEQ/L (98-107); GLOMERULAR FILTRATION RATE > 60.0 (>58); GLUCOSE, FASTING 192 MG/DL (70-100); LIPASE 596 U/L (73-393); POTASSIUM SERUM 4.3 MEQ/L (3.5-5.1); SODIUM LEVEL 141 MEQ/L (136-145); TOTAL PROTEIN 6.1 GM/DL (6.4-8.2)
[2021-08-27 12:26] LABS: CK-MB VALUE MASS < 1.0 NG/ML (<3.6); CPK CREATINE PHOSPHOKINASE 53 U/L (26-192); MB/CK RELATIVE INDEX 1.89 (< OR =4)
[2021-08-27] MEDS ORDERED: ISOVUE-370 76% 100ML VIAL As Ordered ONE (13:28)
[2021-08-27] MEDS ORDERED: METOCLOPRAMIDE INJ 10MG/2ML VIAL (J2765 PER 1) IV ONE (13:45)
[2021-08-27] MEDS ORDERED: ONDA4TAB6 PO (15:53)
[2021-08-27 16:00] VITALS: BP 133/82
== END 2021-08-27 16:23 | disposition home or self-care (01) ==
LOC: M ED 10:55
DX: K50.90 Crohn's disease, unspecified, without complications (principal); R11.2 Nausea with vomiting, unspecified; E11.9 Type 2 diabetes mellitus without complications; Z88.8 Allergy status to other drugs, medicaments and biological substances; Z79.4 Long term (current) use of insulin; Z79.899 Other long term (current) drug therapy
CPT/HCPCS: 36415; 74177; 80048; 80076; 81001; 82150; 82550; 82553; 83605; 83690; 84484; 84703; 85025; 87040; 93005; 93041; 96361; 96374; 96375; 99285; J2405; J2765; Q9963; Q9967

== ENCOUNTER → 2021-09-02 | Outpatient (CLI) | payer BC ==
[~2021-09-02] MED LIST changes: +PRED10PA PO; +TOUJ300I2 SQ
[2021-09-02 15:30] LABS: HEMOGLOBIN 12.7 g/dl (12.0-15.5); MEAN CORPUSCULAR HGB CONC 31.8 g/dl (32.0-36.5); MEAN CORPUSCULAR VOLUME 103.9 fl (80.0-96.0); PLATELET COUNT, AUTOMATED 256 10^3/uL (150-450); RED BLOOD COUNT 3.85 10^6/uL (4.00-5.40); WHITE BLOOD COUNT 4.2 10^3/uL (4.0-10.0)
[2021-09-02 16:08] LABS: ALBUMIN 2.8 GM/DL (3.2-5.2); ALT/SGPT 104 U/L (12-78); BLOOD UREA NITROGEN 16 MG/DL (7-18); C REACTIVE PROTEIN QUANTITATIV 0.39 MG/DL (0.00-0.30); CALCIUM LEVEL 9.3 MG/DL (8.5-10.1); CARBON DIOXIDE LEVEL 23 MEQ/L (21-32); CHLORIDE LEVEL 100 MEQ/L (98-107); CREATININE FOR GFR 0.81 MG/DL (0.55-1.30); GLOMERULAR FILTRATION RATE > 60.0 (>58); GLUCOSE, FASTING 439 MG/DL (70-100); LIPASE 598 U/L (73-393); SODIUM LEVEL 135 MEQ/L (136-145); TOTAL PROTEIN 6.5 GM/DL (6.4-8.2)
== END ==
LOC: M PLALAB 14:00
PROVIDERS: ATTEND Internal Medicine Gastroenterology
DX: K50.00 Crohn's disease of small intestine without complications (principal); R11.0 Nausea; R10.13 Epigastric pain; R74.8 Abnormal levels of other serum enzymes; R94.5 Abnormal results of liver function studies

== ENCOUNTER → 2021-09-03 | Outpatient (REF) | payer BC | LOC: M LAB REF 15:07 | PROVIDERS: ATTEND Internal Medicine Gastroenterology | DX: K50.00 Crohn's disease of small intestine without complications (principal); R11.0 Nausea; R10.13 Epigastric pain; R94.5 Abnormal results of liver function studies; R74.8 Abnormal levels of other serum enzymes ==

== ENCOUNTER → 2021-09-10 | Outpatient (CLI) | payer BC | LOC: M RAD 09:57 | PROVIDERS: ATTEND Specialist | DX: N20.0 Calculus of kidney (principal); K76.0 Fatty (change of) liver, not elsewhere classified; R16.0 Hepatomegaly, not elsewhere classified; K50.00 Crohn's disease of small intestine without complications; R11.0 Nausea; R10.13 Epigastric pain; R94.5 Abnormal results of liver function studies; R74.8 Abnormal levels of other serum enzymes ==

== ENCOUNTER 2021-09-16 13:49 | Outpatient (CLI) | payer BC ==
[~2021-09-16] VITALS: Ht 170.2 cm; Wt 115.0 kg
[~2021-09-16 13:49] MED LIST changes: +ALBUTEROL SULFATE 2.5 MG/0.5 ML INH NEB SOLN INH PRN; +EPINEPHrine INJ 1 MG/ML 1ML AMP IM PRN; +diphenhydrAMINE 50MG/ML VIAL (J1200) IV PRN; +methylPREDNISolone 125MG 2ML VIAL IV PRN
[2021-09-16 13:50] VITALS: BP 157/91
[2021-09-16] MEDS ORDERED: NS 1,000 ML IV ONE (14:00)
[2021-09-16] MEDS ORDERED: TIXAGEVIMAB/CILGAVIMAB (EVUSHELD) 150MG-150MG 3ML VIAL (EUA) IM ONE (14:00)
[2021-09-16] MEDS ORDERED: ALBUTEROL 90 MCG/ACT 8GM HFA INHALER INH PRN (14:00)
[2021-09-16] MEDS ORDERED: JARD1TAB PO (14:06)
[2021-09-16] MEDS ORDERED: CARA1TAB6 PO (14:06)
[2021-09-16] MEDS ORDERED: CVS2500C PO (14:06)
[2021-09-16 15:20] VITALS: BP 147/82
== END 2021-09-16 15:20 | disposition home or self-care (01) ==
LOC: M INFU 13:49
PROVIDERS: ATTEND Internal Medicine Infectious Disease
DX: K50.90 Crohn's disease, unspecified, without complications (principal)

== ENCOUNTER → 2021-09-24 | Outpatient (CLI) | payer BC ==
[~2021-09-24] MED LIST changes: -ALBUTEROL SULFATE 2.5 MG/0.5 ML INH NEB SOLN INH PRN; +CARA1TAB6 PO; +CVS2500C PO; -EPINEPHrine INJ 1 MG/ML 1ML AMP IM PRN; +GLUCAGON INJ 1MG VIAL As Ordered ONE; +ISOVUE-370 76% 100ML VIAL As Ordered ONE; +JARD1TAB PO; +NEULUMEX 0.1% SUSPENSION 450ML BOTTLE (FORMERLY VOLUMEN) As Ordered ONE; -diphenhydrAMINE 50MG/ML VIAL (J1200) IV PRN; -methylPREDNISolone 125MG 2ML VIAL IV PRN
== END ==
LOC: M RAD 13:19
PROVIDERS: ATTEND Internal Medicine Gastroenterology
DX: K50.00 Crohn's disease of small intestine without complications (principal); R19.7 Diarrhea, unspecified; R10.31 Right lower quadrant pain; R11.0 Nausea
CPT/HCPCS: 74177; J1610; Q9967

== ENCOUNTER → 2021-09-28 | Outpatient (REF) | payer BC ==
[~2021-09-28] MED LIST changes: -GLUCAGON INJ 1MG VIAL As Ordered ONE; -ISOVUE-370 76% 100ML VIAL As Ordered ONE; -NEULUMEX 0.1% SUSPENSION 450ML BOTTLE (FORMERLY VOLUMEN) As Ordered ONE
[2021-09-28 17:45] LABS: CHOLESTEROL RISK RATIO 6.812 (<5)
== END ==
LOC: M LAB REF 17:19
PROVIDERS: ATTEND Internal Medicine
DX: E78.1 Pure hyperglyceridemia (principal)

== ENCOUNTER → 2021-09-28 | Outpatient (CLI) | payer BC ==
[2021-09-28 12:53] LABS: MEAN CORPUSCULAR HEMOGLOBIN 34.5 pg (27.0-33.0); MEAN CORPUSCULAR HGB CONC 31.7 g/dl (32.0-36.5); MEAN CORPUSCULAR VOLUME 108.8 fl (80.0-96.0); PLATELET COUNT, AUTOMATED 235 10^3/uL (150-450); RED BLOOD COUNT 3.77 10^6/uL (4.00-5.40); WHITE BLOOD COUNT 4.7 10^3/uL (4.0-10.0)
[2021-09-28 13:29] LABS: ALBUMIN 2.8 GM/DL (3.2-5.2); ALT/SGPT 125 U/L (12-78); AMYLASE 97 U/L (25-115); BILIRUBIN,TOTAL 3.6 MG/DL (0.2-1.0); BLOOD UREA NITROGEN 6 MG/DL (7-18); C REACTIVE PROTEIN QUANTITATIV 0.74 MG/DL (0.00-0.30); CALCIUM LEVEL 8.5 MG/DL (8.5-10.1); CARBON DIOXIDE LEVEL 28 MEQ/L (21-32); CHLORIDE LEVEL 107 MEQ/L (98-107); CREATININE FOR GFR 0.56 MG/DL (0.55-1.30); GLOMERULAR FILTRATION RATE > 60.0 (>58); GLUCOSE, FASTING 243 MG/DL (70-100); LIPASE 733 U/L (73-393); POTASSIUM SERUM 3.7 MEQ/L (3.5-5.1); SODIUM LEVEL 142 MEQ/L (136-145); TOTAL PROTEIN 5.9 GM/DL (6.4-8.2)
== END ==
LOC: M LAB 12:25
PROVIDERS: ATTEND Internal Medicine Gastroenterology
DX: R10.13 Epigastric pain (principal); R94.5 Abnormal results of liver function studies; R74.8 Abnormal levels of other serum enzymes

== ENCOUNTER → 2021-10-04 | Outpatient (CLI) | payer BC ==
[2021-10-04 12:37] LABS: HEMATOCRIT 35.8 % (36.0-47.0); HEMOGLOBIN 11.7 g/dl (12.0-15.5); MEAN CORPUSCULAR HEMOGLOBIN 33.6 pg (27.0-33.0); MEAN CORPUSCULAR HGB CONC 32.7 g/dl (32.0-36.5); MEAN CORPUSCULAR VOLUME 102.9 fl (80.0-96.0); PLATELET COUNT, AUTOMATED 203 10^3/uL (150-450); RED BLOOD COUNT 3.48 10^6/uL (4.00-5.40); WHITE BLOOD COUNT 4.9 10^3/uL (4.0-10.0)
[2021-10-04 13:31] LABS: ALBUMIN 2.8 GM/DL (3.2-5.2); ALT/SGPT 92 U/L (12-78); AMYLASE 88 U/L (25-115); BILIRUBIN,TOTAL 0.7 MG/DL (0.2-1.0); BLOOD UREA NITROGEN 12 MG/DL (7-18); C REACTIVE PROTEIN QUANTITATIV 0.32 MG/DL (0.00-0.30); CARBAMAZEPINE (TEGRETOL) LEVEL < 0.5 UG/ML (4.0-10.0); CARBON DIOXIDE LEVEL 26 MEQ/L (21-32); CHLORIDE LEVEL 107 MEQ/L (98-107); CREATININE FOR GFR 0.52 MG/DL (0.55-1.30); GLOMERULAR FILTRATION RATE > 60.0 (>58); GLUCOSE, FASTING 228 MG/DL (70-100); LIPASE 591 U/L (73-393); POTASSIUM SERUM 3.8 MEQ/L (3.5-5.1); SODIUM LEVEL 139 MEQ/L (136-145)
== END ==
LOC: M LAB 12:05
PROVIDERS: ATTEND Internal Medicine Gastroenterology
DX: R10.13 Epigastric pain (principal); R94.5 Abnormal results of liver function studies; R74.8 Abnormal levels of other serum enzymes

== ENCOUNTER → 2021-10-11 | Outpatient (CLI) | payer BC ==
[~2021-10-11] MED LIST changes: +FEXO-111 PO; -FEXO180T70 PO
[2021-10-11 11:47] LABS: HEMATOCRIT 38.9 % (36.0-47.0); HEMOGLOBIN 12.5 g/dl (12.0-15.5); MEAN CORPUSCULAR HEMOGLOBIN 32.2 pg (27.0-33.0); MEAN CORPUSCULAR HGB CONC 32.1 g/dl (32.0-36.5); MEAN CORPUSCULAR VOLUME 100.3 fl (80.0-96.0); PLATELET COUNT, AUTOMATED 288 10^3/uL (150-450); RED BLOOD COUNT 3.88 10^6/uL (4.00-5.40); WHITE BLOOD COUNT 4.7 10^3/uL (4.0-10.0)
[2021-10-11 12:36] LABS: ALBUMIN 3.4 GM/DL (3.2-5.2); ALT/SGPT 91 U/L (12-78); AMYLASE 81 U/L (25-115); BILIRUBIN,TOTAL 0.8 MG/DL (0.2-1.0); BLOOD UREA NITROGEN 12 MG/DL (7-18); C REACTIVE PROTEIN QUANTITATIV 0.39 MG/DL (0.00-0.30); CALCIUM LEVEL 9.7 MG/DL (8.5-10.1); CARBON DIOXIDE LEVEL 26 MEQ/L (21-32); CHLORIDE LEVEL 107 MEQ/L (98-107); CREATININE FOR GFR 0.59 MG/DL (0.55-1.30); GLOMERULAR FILTRATION RATE > 60.0 (>58); GLUCOSE, FASTING 150 MG/DL (70-100); LIPASE 552 U/L (73-393); SODIUM LEVEL 139 MEQ/L (136-145); TOTAL PROTEIN 7.1 GM/DL (6.4-8.2)
== END ==
LOC: M LAB 11:12
PROVIDERS: ATTEND Internal Medicine Gastroenterology
DX: R10.13 Epigastric pain (principal)

== ENCOUNTER 2021-10-14 13:17 | Outpatient (CLI) | payer BC ==
[~2021-10-14] VITALS: Ht 170.2 cm; Wt 115.0 kg
[~2021-10-14 13:17] MED LIST changes: +TIXAGEVIMAB/CILGAVIMAB (EVUSHELD) 150MG-150MG 3ML VIAL (EUA) IM NO SITE ONE
[2021-10-14] MEDS ORDERED: EPINEPHrine INJ 1 MG/ML 1ML AMP IM PRN (13:30)
[2021-10-14] MEDS ORDERED: TIXAGEVIMAB/CILGAVIMAB (EVUSHELD) 150MG-150MG 3ML VIAL (EUA) IM NO SITE ONE (13:30)
[2021-10-14] MEDS ORDERED: diphenhydrAMINE 50MG/ML VIAL (J1200) IV PRN (13:30)
[2021-10-14] MEDS ORDERED: NS 1,000 ML IV ONE (13:30)
[2021-10-14] MEDS ORDERED: methylPREDNISolone 125MG 2ML VIAL IV PRN (13:30)
[2021-10-14] MEDS ORDERED: ALBUTEROL SULFATE 2.5 MG/0.5 ML INH NEB SOLN INH PRN (13:30)
[2021-10-14] MEDS ORDERED: ALBUTEROL 90 MCG/ACT 8GM HFA INHALER INH PRN (13:30)
[2021-10-14 13:40] VITALS: BP 115/74
== END 2021-10-14 14:00 | disposition home or self-care (01) ==
LOC: M INFU 13:17
PROVIDERS: ATTEND Internal Medicine Infectious Disease
DX: K50.90 Crohn's disease, unspecified, without complications (principal); Z88.8 Allergy status to other drugs, medicaments and biological substances

== ENCOUNTER → 2021-10-18 | Outpatient (CLI) | payer BC ==
[~2021-10-18] MED LIST changes: -TIXAGEVIMAB/CILGAVIMAB (EVUSHELD) 150MG-150MG 3ML VIAL (EUA) IM NO SITE ONE
[2021-10-18 12:19] LABS: HEMATOCRIT 38.1 % (36.0-47.0); HEMOGLOBIN 12.2 g/dl (12.0-15.5); MEAN CORPUSCULAR HEMOGLOBIN 31.6 pg (27.0-33.0); MEAN CORPUSCULAR VOLUME 98.7 fl (80.0-96.0); PLATELET COUNT, AUTOMATED 209 10^3/uL (150-450); RED BLOOD COUNT 3.86 10^6/uL (4.00-5.40); WHITE BLOOD COUNT 5.9 10^3/uL (4.0-10.0)
[2021-10-18 12:49] LABS: ALBUMIN 3.5 GM/DL (3.2-5.2); ALT/SGPT 61 U/L (12-78); AMYLASE 93 U/L (25-115); BILIRUBIN,TOTAL 0.5 MG/DL (0.2-1.0); BLOOD UREA NITROGEN 12 MG/DL (7-18); CALCIUM LEVEL 9.3 MG/DL (8.5-10.1); CARBON DIOXIDE LEVEL 25 MEQ/L (21-32); CHLORIDE LEVEL 110 MEQ/L (98-107); CREATININE FOR GFR 0.61 MG/DL (0.55-1.30); GLOMERULAR FILTRATION RATE > 60.0 (>58); GLUCOSE, FASTING 183 MG/DL (70-100); LIPASE 596 U/L (73-393); SODIUM LEVEL 142 MEQ/L (136-145); TOTAL PROTEIN 7.1 GM/DL (6.4-8.2)
== END ==
LOC: M LAB 11:54
PROVIDERS: ATTEND Internal Medicine Gastroenterology
DX: R10.13 Epigastric pain (principal); R94.5 Abnormal results of liver function studies; R74.8 Abnormal levels of other serum enzymes

== ENCOUNTER → 2021-10-25 | Outpatient (CLI) | payer BC ==
[2021-10-25 14:02] LABS: HEMATOCRIT 38.4 % (36.0-47.0); HEMOGLOBIN 12.3 g/dl (12.0-15.5); MEAN CORPUSCULAR HEMOGLOBIN 31.2 pg (27.0-33.0); MEAN CORPUSCULAR VOLUME 97.5 fl (80.0-96.0); PLATELET COUNT, AUTOMATED 186 10^3/uL (150-450); RED BLOOD COUNT 3.94 10^6/uL (4.00-5.40); WHITE BLOOD COUNT 7.1 10^3/uL (4.0-10.0)
[2021-10-25 14:33] LABS: ALBUMIN 3.4 GM/DL (3.2-5.2); ALT/SGPT 54 U/L (12-78); AMYLASE 86 U/L (25-115); BILIRUBIN,TOTAL 0.5 MG/DL (0.2-1.0); BLOOD UREA NITROGEN 12 MG/DL (7-18); CALCIUM LEVEL 9.2 MG/DL (8.5-10.1); CARBON DIOXIDE LEVEL 25 MEQ/L (21-32); CHLORIDE LEVEL 109 MEQ/L (98-107); CREATININE FOR GFR 0.62 MG/DL (0.55-1.30); GLOMERULAR FILTRATION RATE > 60.0 (>58); GLUCOSE, FASTING 131 MG/DL (70-100); LIPASE 433 U/L (73-393); SODIUM LEVEL 140 MEQ/L (136-145); TOTAL PROTEIN 7.2 GM/DL (6.4-8.2)
== END ==
LOC: M LAB 13:26
PROVIDERS: ATTEND Internal Medicine Gastroenterology
DX: R10.13 Epigastric pain (principal)

== ENCOUNTER → 2021-11-09 | Outpatient (CLI) | payer BC ==
[~2021-11-09] MED LIST changes: -VITA200015 PO; +VITA200035 PO
[2021-11-09 14:17] LABS: HEMATOCRIT 38.5 % (36.0-47.0); HEMOGLOBIN 12.5 g/dl (12.0-15.5); MEAN CORPUSCULAR HEMOGLOBIN 30.8 pg (27.0-33.0); MEAN CORPUSCULAR HGB CONC 32.5 g/dl (32.0-36.5); MEAN CORPUSCULAR VOLUME 94.8 fl (80.0-96.0); PLATELET COUNT, AUTOMATED 189 10^3/uL (150-450); RED BLOOD COUNT 4.06 10^6/uL (4.00-5.40); WHITE BLOOD COUNT 6.1 10^3/uL (4.0-10.0)
[2021-11-09 14:46] LABS: ALBUMIN 3.5 GM/DL (3.2-5.2); ALT/SGPT 47 U/L (12-78); AMYLASE 66 U/L (25-115); BILIRUBIN,TOTAL 0.5 MG/DL (0.2-1.0); BLOOD UREA NITROGEN 9 MG/DL (7-18); C REACTIVE PROTEIN QUANTITATIV 0.36 MG/DL (0.00-0.30); CALCIUM LEVEL 9.5 MG/DL (8.5-10.1); CARBON DIOXIDE LEVEL 26 MEQ/L (21-32); CHLORIDE LEVEL 111 MEQ/L (98-107); CREATININE FOR GFR 0.58 MG/DL (0.55-1.30); GLOMERULAR FILTRATION RATE > 60.0 (>58); GLUCOSE, FASTING 125 MG/DL (70-100); LIPASE 360 U/L (73-393); POTASSIUM SERUM 3.7 MEQ/L (3.5-5.1); SODIUM LEVEL 144 MEQ/L (136-145)
== END ==
LOC: M LAB 13:15
PROVIDERS: ATTEND Internal Medicine Gastroenterology
DX: R10.13 Epigastric pain (principal); R94.5 Abnormal results of liver function studies; R74.8 Abnormal levels of other serum enzymes

== ENCOUNTER → 2021-11-22 | Outpatient (REF) | payer BC ==
[2021-11-22 14:49] LABS: HEMATOCRIT 38.2 % (36.0-47.0); HEMOGLOBIN 12.2 g/dl (12.0-15.5); MEAN CORPUSCULAR HEMOGLOBIN 29.4 pg (27.0-33.0); MEAN CORPUSCULAR HGB CONC 31.9 g/dl (32.0-36.5); PLATELET COUNT, AUTOMATED 175 10^3/uL (150-450); RED BLOOD COUNT 4.15 10^6/uL (4.00-5.40); WHITE BLOOD COUNT 6.9 10^3/uL (4.0-10.0)
[2021-11-22 15:20] LABS: ALBUMIN 3.5 GM/DL (3.2-5.2); ALT/SGPT 39 U/L (12-78); AMYLASE 83 U/L (25-115); BILIRUBIN,TOTAL 0.3 MG/DL (0.2-1.0); BLOOD UREA NITROGEN 9 MG/DL (7-18); C REACTIVE PROTEIN QUANTITATIV 0.43 MG/DL (0.00-0.30); CALCIUM LEVEL 9.5 MG/DL (8.5-10.1); CARBON DIOXIDE LEVEL 21 MEQ/L (21-32); CHLORIDE LEVEL 112 MEQ/L (98-107); CREATININE FOR GFR 0.42 MG/DL (0.55-1.30); GLOMERULAR FILTRATION RATE > 60.0 (>58); GLUCOSE, FASTING 117 MG/DL (70-100); LIPASE 390 U/L (73-393); POTASSIUM SERUM 3.8 MEQ/L (3.5-5.1); SODIUM LEVEL 143 MEQ/L (136-145); TOTAL PROTEIN 7.2 GM/DL (6.4-8.2)
== END ==
LOC: M LAB REF 14:32
PROVIDERS: ATTEND Internal Medicine Gastroenterology
DX: R10.13 Epigastric pain (principal); R94.5 Abnormal results of liver function studies; R74.8 Abnormal levels of other serum enzymes

== ENCOUNTER → 2021-12-27 | Outpatient (REF) | payer BC ==
[2021-12-27 18:08] LABS: HEMOGLOBIN A1c 6.3 %
[2021-12-27 18:19] LABS: ALBUMIN 3.5 GM/DL (3.2-5.2); ALT/SGPT 40 U/L (12-78); BILIRUBIN,TOTAL 0.4 MG/DL (0.2-1.0); BLOOD UREA NITROGEN 9 MG/DL (7-18); CALCIUM LEVEL 10.1 MG/DL (8.5-10.1); CARBON DIOXIDE LEVEL 24 MEQ/L (21-32); CHLORIDE LEVEL 110 MEQ/L (98-107); CREATININE FOR GFR 0.53 MG/DL (0.55-1.30); GLOMERULAR FILTRATION RATE > 60.0 (>58); GLUCOSE, FASTING 99 MG/DL (70-100); POTASSIUM SERUM 4.3 MEQ/L (3.5-5.1); SODIUM LEVEL 144 MEQ/L (136-145); TOTAL PROTEIN 7.7 GM/DL (6.4-8.2)
[2021-12-27 18:49] LABS: CREATININE, URINE 66.7 MG/DL; MAU/CREAT RATIO 694.1 MCG/MG (0.0-30.0)
== END ==
LOC: M LAB REF 17:11
PROVIDERS: ATTEND Internal Medicine
DX: E11.65 Type 2 diabetes mellitus with hyperglycemia (principal); E66.01 Morbid (severe) obesity due to excess calories; Z79.899 Other long term (current) drug therapy

== ENCOUNTER 2022-01-11 12:46 | Emergency (ER) | payer BC ==
[~2022-01-11] VITALS: Ht 170.2 cm; Wt 122.3 kg
[2022-01-11] MEDS ORDERED: NS 1,000 ML IV ONE ×2 (13:10→14:25)
[2022-01-11] MEDS ORDERED: ONDANSETRON 4MG/2ML VIAL IV ONE (13:10)
[2022-01-11] MEDS ORDERED: MORPHINE 2 MG/ML 1ML VIAL IV PRN (13:10)
[2022-01-11 13:36] LABS: VENOUS BASE EXCESS -3.1 (-2.0-2.0); VENOUS HCO3 22.6 MEQ/L (23.0-27.0); VENOUS O2 SATURATION 61.7 % (60.0-80.0); VENOUS PARTIAL PRESSURE CO2 42.5 mmHg (38.0-50.0); VENOUS PARTIAL PRESSURE O2 34.8 mmHg (30.0-50.0); VENOUS PH 7.343 UNITS (7.330-7.430); VENOUS STANDARD HCO3 21.1 MEQ/L; VENOUS TOTAL CO2 23.9 MEQ/L (24.0-28.0)
[2022-01-11 13:41] LABS: BASO % 0.1 % (0.0-1.0); EOS % 0.4 % (0.0-3.0); HEMATOCRIT 42.5 % (36.0-47.0); HEMOGLOBIN 13.3 g/dl (12.0-15.5); LYMPH # 2.1 10^3/uL (1.5-5.0); LYMPH % 26.9 % (24.0-44.0); MEAN CORPUSCULAR HEMOGLOBIN 27.4 pg (27.0-33.0); MEAN CORPUSCULAR HGB CONC 31.3 g/dl (32.0-36.5); MEAN CORPUSCULAR VOLUME 87.4 fl (80.0-96.0); MONO # 0.6 10^3/uL (0.0-0.8); MONO % 7.2 % (2.0-8.0); NEUTROPHILS % 65.1 % (36.0-66.0); PLATELET COUNT, AUTOMATED 215 10^3/uL (150-450); RED BLOOD COUNT 4.86 10^6/uL (4.00-5.40); WHITE BLOOD COUNT 7.7 10^3/uL (4.0-10.0)
[2022-01-11 14:10] LABS: ALBUMIN 3.5 GM/DL (3.2-5.2); ALT/SGPT 42 U/L (12-78); BILIRUBIN,DIRECT 0.2 MG/DL (0.0-0.2); BILIRUBIN,TOTAL 0.5 MG/DL (0.2-1.0); BLOOD UREA NITROGEN 12 MG/DL (7-18); CALCIUM LEVEL 9.6 MG/DL (8.5-10.1); CARBON DIOXIDE LEVEL 27 MEQ/L (21-32); CHLORIDE LEVEL 106 MEQ/L (98-107); GLOMERULAR FILTRATION RATE > 60.0 (>58); GLUCOSE, FASTING 116 MG/DL (70-100); LIPASE 300 U/L (73-393); SODIUM LEVEL 139 MEQ/L (136-145); TOTAL PROTEIN 7.6 GM/DL (6.4-8.2)
[2022-01-11] MEDS ORDERED: ISOVUE-370 76% 100ML VIAL As Ordered ONE (14:16)
[2022-01-11 15:44] VITALS: BP 122/67
== END 2022-01-11 15:59 | disposition home or self-care (01) ==
LOC: M ED 12:46
DX: K56.600 Partial intestinal obstruction, unspecified as to cause (principal); K57.30 Diverticulosis of large intestine without perforation or abscess without bleeding; K76.0 Fatty (change of) liver, not elsewhere classified; Z87.442 Personal history of urinary calculi; K50.90 Crohn's disease, unspecified, without complications; Z88.8 Allergy status to other drugs, medicaments and biological substances; Z79.899 Other long term (current) drug therapy
CPT/HCPCS: 71275; 74177; 80048; 80076; 82803; 83605; 83690; 85025; 87486; 87581; 87633; 87798; 93005; 93041; 94760; 96361; 96374; 96375; 99285; J2270; J2405; Q9967

== ENCOUNTER → 2022-01-11 | Outpatient (REF) | payer BC ==
[2022-01-11 12:03] LABS: BASO % 0.3 % (0.0-1.0); EOS % 0.4 % (0.0-3.0); HEMATOCRIT 43.1 % (36.0-47.0); HEMOGLOBIN 13.5 g/dl (12.0-15.5); LYMPH # 1.9 10^3/uL (1.5-5.0); LYMPH % 28.4 % (24.0-44.0); MEAN CORPUSCULAR HEMOGLOBIN 27.1 pg (27.0-33.0); MEAN CORPUSCULAR HGB CONC 31.3 g/dl (32.0-36.5); MEAN CORPUSCULAR VOLUME 86.5 fl (80.0-96.0); MONO # 0.5 10^3/uL (0.0-0.8); NEUTROPHILS # 4.4 10^3/uL (1.5-8.5); NEUTROPHILS % 63.6 % (36.0-66.0); PLATELET COUNT, AUTOMATED 231 10^3/uL (150-450); RED BLOOD COUNT 4.98 10^6/uL (4.00-5.40); WHITE BLOOD COUNT 6.8 10^3/uL (4.0-10.0)
[2022-01-11 12:16] LABS: ALBUMIN 3.6 GM/DL (3.2-5.2); ALT/SGPT 40 U/L (12-78); BILIRUBIN,TOTAL 0.4 MG/DL (0.2-1.0); BLOOD UREA NITROGEN 11 MG/DL (7-18); CALCIUM LEVEL 9.9 MG/DL (8.5-10.1); CARBON DIOXIDE LEVEL 23 MEQ/L (21-32); CHLORIDE LEVEL 108 MEQ/L (98-107); CREATININE FOR GFR 0.61 MG/DL (0.55-1.30); GLOMERULAR FILTRATION RATE > 60.0 (>58); GLUCOSE, FASTING 129 MG/DL (70-100); LIPASE 373 U/L (73-393); POTASSIUM SERUM 4.3 MEQ/L (3.5-5.1); SODIUM LEVEL 140 MEQ/L (136-145); TOTAL PROTEIN 7.8 GM/DL (6.4-8.2)
== END ==
LOC: M LAB REF 11:05
PROVIDERS: ATTEND Internal Medicine Pulmonary Disease
DX: K85.90 Acute pancreatitis without necrosis or infection, unspecified (principal)

== ENCOUNTER → 2022-02-02 | Outpatient (REF) | payer BC ==
[2022-02-02 17:17] LABS: HEMATOCRIT 42.2 % (36.0-47.0); HEMOGLOBIN 13.1 g/dl (12.0-15.5); MEAN CORPUSCULAR HEMOGLOBIN 26.7 pg (27.0-33.0); MEAN CORPUSCULAR VOLUME 85.9 fl (80.0-96.0); PLATELET COUNT, AUTOMATED 227 10^3/uL (150-450); RED BLOOD COUNT 4.91 10^6/uL (4.00-5.40)
[2022-02-02 17:43] LABS: ALBUMIN 3.5 GM/DL (3.2-5.2); ALT/SGPT 49 U/L (12-78); BILIRUBIN,TOTAL 0.4 MG/DL (0.2-1.0); BLOOD UREA NITROGEN 11 MG/DL (7-18); CALCIUM LEVEL 9.7 MG/DL (8.5-10.1); CARBON DIOXIDE LEVEL 21 MEQ/L (21-32); CHLORIDE LEVEL 108 MEQ/L (98-107); CREATININE FOR GFR 0.59 MG/DL (0.55-1.30); GLOMERULAR FILTRATION RATE > 60.0 (>58); GLUCOSE, FASTING 148 MG/DL (70-100); MAGNESIUM LEVEL 1.6 MG/DL (1.8-2.4); POTASSIUM SERUM 4.3 MEQ/L (3.5-5.1); SODIUM LEVEL 140 MEQ/L (136-145); TOTAL PROTEIN 7.5 GM/DL (6.4-8.2)
[2022-02-02 17:53] LABS: ERYTHROCYTE SEDIMENTATION RATE 30 mm/hr (0-20)
== END ==
LOC: M LAB REF 16:54
PROVIDERS: ATTEND Internal Medicine Gastroenterology
DX: K50.00 Crohn's disease of small intestine without complications (principal); R19.7 Diarrhea, unspecified; R10.31 Right lower quadrant pain

== ENCOUNTER → 2022-02-14 | Outpatient (REF) | LOC: M EMP 10:17 | PROVIDERS: ATTEND Family Medicine | DX: Z20.822 Contact with and (suspected) exposure to COVID-19 (principal); Z11.52 Encounter for screening for COVID-19 ==

== ENCOUNTER → 2022-03-21 | Outpatient (REF) | payer BC ==
[2022-03-21 19:07] LABS: ALBUMIN 3.4 GM/DL (3.2-5.2); ALT/SGPT 41 U/L (12-78); AMYLASE 71 U/L (25-115); BILIRUBIN,TOTAL 0.3 MG/DL (0.2-1.0); BLOOD UREA NITROGEN 11 MG/DL (7-18); CALCIUM LEVEL 9.4 MG/DL (8.5-10.1); CARBON DIOXIDE LEVEL 23 MEQ/L (21-32); CHLORIDE LEVEL 107 MEQ/L (98-107); CHOLESTEROL LEVEL 210 MG/DL (< 200); CPK CREATINE PHOSPHOKINASE 213 U/L (26-192); CREATININE FOR GFR 0.66 MG/DL (0.55-1.30); GLOMERULAR FILTRATION RATE > 60.0 (>58); GLUCOSE, FASTING 152 MG/DL (70-100); LDH LACTATE DEHYDROGENASE 212 U/L (84-246); LIPASE 350 U/L (73-393); PHOSPHORUS LEVEL 4.9 MG/DL (2.5-4.9); POTASSIUM SERUM 3.9 MEQ/L (3.5-5.1); SODIUM LEVEL 140 MEQ/L (136-145); TOTAL PROTEIN 7.2 GM/DL (6.4-8.2); TRIGLYCERIDES LEVEL 585 MG/DL (<150)
== END ==
LOC: M LAB REF 16:44
PROVIDERS: ATTEND Internal Medicine Pulmonary Disease
DX: Z51.81 Encounter for therapeutic drug level monitoring (principal); Z79.899 Other long term (current) drug therapy

== ENCOUNTER → 2022-03-29 | Outpatient (REF) | LOC: M EMP 12:19 | PROVIDERS: ATTEND Family Medicine | DX: Z20.822 Contact with and (suspected) exposure to COVID-19 (principal); Z11.52 Encounter for screening for COVID-19 ==

== ENCOUNTER → 2022-06-07 | Outpatient (REF) | payer BC ==
[2022-06-07 14:37] LABS: BASO % 0.3 % (0.0-1.0); EOS # 0.1 10^3/uL (0.0-0.5); EOS % 0.9 % (0.0-3.0); HEMATOCRIT 42.1 % (36.0-47.0); HEMOGLOBIN 13.1 g/dl (12.0-15.5); LYMPH % 34.8 % (24.0-44.0); MEAN CORPUSCULAR HEMOGLOBIN 27.2 pg (27.0-33.0); MEAN CORPUSCULAR HGB CONC 31.1 g/dl (32.0-36.5); MEAN CORPUSCULAR VOLUME 87.3 fl (80.0-96.0); MONO # 0.5 10^3/uL (0.0-0.8); MONO % 9.2 % (2.0-8.0); NEUTROPHILS # 3.2 10^3/uL (1.5-8.5); NEUTROPHILS % 54.6 % (36.0-66.0); PLATELET COUNT, AUTOMATED 263 10^3/uL (150-450); RED BLOOD COUNT 4.82 10^6/uL (4.00-5.40); WHITE BLOOD COUNT 5.8 10^3/uL (4.0-10.0)
[2022-06-07 15:41] LABS: ALBUMIN 3.4 GM/DL (3.2-5.2); ALT/SGPT 35 U/L (12-78); BILIRUBIN,TOTAL 0.3 MG/DL (0.2-1.0); BLOOD UREA NITROGEN 8 MG/DL (7-18); CALCIUM LEVEL 9.2 MG/DL (8.5-10.1); CARBON DIOXIDE LEVEL 24 MEQ/L (21-32); CHLORIDE LEVEL 108 MEQ/L (98-107); CREATININE FOR GFR 0.51 MG/DL (0.55-1.30); GLOMERULAR FILTRATION RATE > 60.0 (>58); GLUCOSE, FASTING 155 MG/DL (70-100); POTASSIUM SERUM 4.3 MEQ/L (3.5-5.1); SODIUM LEVEL 140 MEQ/L (136-145); TOTAL PROTEIN 7.1 GM/DL (6.4-8.2)
[2022-06-08 23:10] LABS: HEMOGLOBIN A1c 6.5 %
== END ==
LOC: M LAB REF 12:48
PROVIDERS: ATTEND Internal Medicine
DX: E66.01 Morbid (severe) obesity due to excess calories (principal); Z79.52 Long term (current) use of systemic steroids; D64.9 Anemia, unspecified; E11.65 Type 2 diabetes mellitus with hyperglycemia

== ENCOUNTER → 2022-06-28 | Outpatient (REF) | payer BC | LOC: M LAB REF 17:13 | PROVIDERS: ATTEND Internal Medicine Pulmonary Disease | DX: R05.9 Cough, unspecified (principal) ==

== ENCOUNTER → 2022-07-12 | Outpatient (REF) | payer BC | LOC: M LAB REF 13:06 | PROVIDERS: ATTEND Internal Medicine | DX: R06.02 Shortness of breath (principal); R07.89 Other chest pain ==

== ENCOUNTER → 2022-08-05 | Outpatient (REF) | payer BC ==
[2022-08-05 13:55] LABS: LIPASE 76 U/L (12-53)
[2022-08-05 13:57] LABS: ALBUMIN 3.5 G/DL (3.2-5.2); ALKALINE PHOSPHATASE 94 U/L (46-116); ALT/SGPT 30 U/L (7.0-40); AST/SGOT 42 U/L (<34); BILIRUBIN,DIRECT 0.1 MG/DL (<0.4); BILIRUBIN,TOTAL 0.4 MG/DL (0.3-1.2); BLOOD UREA NITROGEN 12 MG/DL (9-23); CALCIUM LEVEL 9.4 MG/DL (8.5-10.1); CARBON DIOXIDE LEVEL 20 MMOL/L (20-31); CHLORIDE LEVEL 108 MMOL/L (98-107); CREATININE FOR GFR 0.52 MG/DL (0.55-1.30); GLOMERULAR FILTRATION RATE > 60.0 (>58); GLUCOSE, FASTING 106 MG/DL (60-100); POTASSIUM SERUM 4.2 MMOL/L (3.5-5.1); SODIUM LEVEL 141 MMOL/L (136-145); TOTAL PROTEIN 6.9 G/DL (5.7-8.2)
== END ==
LOC: M LAB REF 12:49
PROVIDERS: ATTEND Internal Medicine Pulmonary Disease
DX: R10.84 Generalized abdominal pain (principal)

== ENCOUNTER → 2022-08-26 | Outpatient (REF) | payer BC ==
[2022-08-26 16:10] LABS: BASO % 0.3 % (0.0-1.0); EOS # 0.1 10^3/uL (0.0-0.5); EOS % 0.8 % (0.0-3.0); HEMATOCRIT 46.5 % (36.0-47.0); LYMPH # 2.8 10^3/uL (1.5-5.0); LYMPH % 35.5 % (24.0-44.0); MEAN CORPUSCULAR HEMOGLOBIN 25.9 pg (27.0-33.0); MEAN CORPUSCULAR HGB CONC 30.1 g/dl (32.0-36.5); MONO # 0.5 10^3/uL (0.0-0.8); MONO % 6.9 % (2.0-8.0); NEUTROPHILS # 4.4 10^3/uL (1.5-8.5); PLATELET COUNT, AUTOMATED 298 10^3/uL (150-450); RED BLOOD COUNT 5.41 10^6/uL (4.00-5.40); WHITE BLOOD COUNT 7.9 10^3/uL (4.0-10.0)
[2022-08-26 16:25] LABS: LIPASE 79 U/L (12-53)
[2022-08-26 16:27] LABS: ALBUMIN 3.6 G/DL (3.2-5.2); ALKALINE PHOSPHATASE 100 U/L (46-116); ALT/SGPT 31 U/L (7.0-40); AST/SGOT 36 U/L (<34); BILIRUBIN,TOTAL 0.4 MG/DL (0.3-1.2); BLOOD UREA NITROGEN 10 MG/DL (9-23); CALCIUM LEVEL 9.6 MG/DL (8.5-10.1); CARBON DIOXIDE LEVEL 23 MMOL/L (20-31); CHLORIDE LEVEL 103 MMOL/L (98-107); CREATININE FOR GFR 0.49 MG/DL (0.55-1.30); GLOMERULAR FILTRATION RATE > 60.0 (>58); GLUCOSE, FASTING 93 MG/DL (60-100); POTASSIUM SERUM 4.7 MMOL/L (3.5-5.1); SODIUM LEVEL 139 MMOL/L (136-145); TOTAL PROTEIN 7.2 G/DL (5.7-8.2)
== END ==
LOC: M LAB REF 15:16
PROVIDERS: ATTEND Internal Medicine Pulmonary Disease
DX: R11.0 Nausea (principal)

== ENCOUNTER 2022-11-14 11:23 | Emergency (ER) | payer BC ==
[~2022-11-14] VITALS: Ht 170.2 cm; Wt 133.4 kg
[2022-11-14] MEDS ORDERED: KETOROLAC 30 MG/ML 1ML VIAL IV ONE (11:45)
[2022-11-14] MEDS ORDERED: NS 1,000 ML IV ONE (11:45)
[2022-11-14] MEDS ORDERED: ONDANSETRON 4MG 2ML VIAL IV ONE (11:45)
[2022-11-14 12:19] LABS: BASO % 0.4 % (0.0-1.0); EOS # 0.1 10^3/uL (0.0-0.5); EOS % 0.7 % (0.0-3.0); HEMATOCRIT 44.7 % (36.0-47.0); HEMOGLOBIN 13.8 g/dl (12.0-15.5); LYMPH # 2.7 10^3/uL (1.5-5.0); LYMPH % 33.1 % (24.0-44.0); MEAN CORPUSCULAR HEMOGLOBIN 26.7 pg (27.0-33.0); MEAN CORPUSCULAR HGB CONC 30.9 g/dl (32.0-36.5); MEAN CORPUSCULAR VOLUME 86.6 fl (80.0-96.0); MONO # 0.5 10^3/uL (0.0-0.8); MONO % 6.4 % (2.0-8.0); NEUTROPHILS # 4.8 10^3/uL (1.5-8.5); PLATELET COUNT, AUTOMATED 298 10^3/uL (150-450); RED BLOOD COUNT 5.16 10^6/uL (4.00-5.40); WHITE BLOOD COUNT 8.2 10^3/uL (4.0-10.0)
[2022-11-14 12:43] LABS: LIPASE 76 U/L (12-53)
[2022-11-14 12:46] LABS: ALBUMIN 3.5 G/DL (3.2-5.2); ALKALINE PHOSPHATASE 102 U/L (46-116); ALT/SGPT 32 U/L (7.0-40); AST/SGOT 34 U/L (<34); BILIRUBIN,DIRECT 0.1 MG/DL (<0.4); BILIRUBIN,TOTAL 0.3 MG/DL (0.3-1.2); BLOOD UREA NITROGEN 9 MG/DL (9-23); CALCIUM LEVEL 9.2 MG/DL (8.5-10.1); CARBON DIOXIDE LEVEL 26 MMOL/L (20-31); CHLORIDE LEVEL 108 MMOL/L (98-107); GLOMERULAR FILTRATION RATE > 60.0 (>58); GLUCOSE, FASTING 90 MG/DL (60-100); POTASSIUM SERUM 3.9 MMOL/L (3.5-5.1); SODIUM LEVEL 142 MMOL/L (136-145)
[2022-11-14 13:08] VITALS: BP 134/73
== END 2022-11-14 13:11 | disposition home or self-care (01) ==
LOC: M ED 11:23
DX: N20.1 Calculus of ureter (principal); E11.9 Type 2 diabetes mellitus without complications; K50.90 Crohn's disease, unspecified, without complications; Z87.442 Personal history of urinary calculi; Z85.42 Personal history of malignant neoplasm of other parts of uterus; Z88.8 Allergy status to other drugs, medicaments and biological substances; Z79.4 Long term (current) use of insulin; Z79.899 Other long term (current) drug therapy
CPT/HCPCS: 74176; 80048; 80076; 81001; 83605; 83690; 85025; 87040; 93005; 96374; 96375; 99284; J1885; J2405

== ENCOUNTER → 2022-12-07 | Outpatient (REF) | payer BC ==
[2022-12-07 18:40] LABS: VITAMIN B12 LEVEL 587 PG/ML (211-911)
[2022-12-07 18:41] LABS: FOLATE > 24.0 NG/ML (>5.4)
== END ==
LOC: M LAB REF 16:32
PROVIDERS: ATTEND Internal Medicine
DX: G60.9 Hereditary and idiopathic neuropathy, unspecified (principal)

== ENCOUNTER → 2022-12-23 | Outpatient (CLI) | payer BC | LOC: M WHC 12:21 | PROVIDERS: ATTEND Internal Medicine | DX: Z12.31 Encounter for screening mammogram for malignant neoplasm of breast (principal) ==

== ENCOUNTER → 2023-01-23 | Outpatient (REF) | payer BC | LOC: M SFHCPLAZ 16:54 | PROVIDERS: ATTEND Internal Medicine Infectious Disease | DX: G62.9 Polyneuropathy, unspecified (principal) ==

== ENCOUNTER → 2023-08-18 | Outpatient (CLI) | payer BC ==
[~2023-08-18] MED LIST changes: -OXYB5TAB10 PO; +OXYB5TAB11 PO
== END ==
LOC: M RAD 12:00
PROVIDERS: ATTEND Internal Medicine
DX: K76.0 Fatty (change of) liver, not elsewhere classified (principal); Z90.49 Acquired absence of other specified parts of digestive tract

== ENCOUNTER 2023-09-19 11:21 | Emergency (ER) | payer BC ==
[~2023-09-19] VITALS: Ht 170.2 cm; Wt 130.4 kg
[~2023-09-19 11:21] MED LIST changes: -OXYB5TAB11 PO; +OXYB5TAB14 PO
[2023-09-19] MEDS ORDERED: METH2.5T48 PO (11:30)
[2023-09-19] MEDS ORDERED: LMEF1TAB PO (11:30)
[2023-09-19] MEDS ORDERED: FOLI1TAB11 PO (11:30)
[2023-09-19] MEDS ORDERED: SEMA2PEN (11:30)
[2023-09-19] MEDS ORDERED: VITA100C8 (11:30)
[2023-09-19 11:53] LABS: BASO % 0.3 % (0.0-1.0); EOS # 0.1 10^3/uL (0.0-0.5); EOS % 0.7 % (0.0-3.0); HEMATOCRIT 48.5 % (36.0-47.0); HEMOGLOBIN 15.5 g/dl (12.0-15.5); LYMPH # 1.6 10^3/uL (1.5-5.0); LYMPH % 17.3 % (24.0-44.0); MEAN CORPUSCULAR HEMOGLOBIN 27.2 pg (27.0-33.0); MEAN CORPUSCULAR VOLUME 85.2 fl (80.0-96.0); MONO # 0.3 10^3/uL (0.0-0.8); MONO % 3.7 % (2.0-8.0); NEUTROPHILS % 77.6 % (36.0-66.0); PLATELET COUNT, AUTOMATED 276 10^3/uL (150-450); RED BLOOD COUNT 5.69 10^6/uL (4.00-5.40)
[2023-09-19 11:59] LABS: ERYTHROCYTE SEDIMENTATION RATE 47 mm/hr (0-20)
[2023-09-19] MEDS: NS 1,000 ML IV SCH (11:59)
[2023-09-19] MEDS: MORPHINE 4 MG/ML 1ML VIAL IV ONE (11:59)
[2023-09-19] MEDS: ONDANSETRON 4MG 2ML VIAL IV ONE (11:59)
[2023-09-19 12:17] LABS: C REACTIVE PROTEIN QUANTITATIV < 0.40 MG/DL (<1.0); LIPASE 64 U/L (12-53)
[2023-09-19 12:19] LABS: ALBUMIN 3.6 G/DL (3.2-5.2); ALKALINE PHOSPHATASE 69 U/L (46-116); ALT/SGPT 37 U/L (7.0-40); AST/SGOT 37 U/L (<34); BILIRUBIN,DIRECT 0.1 MG/DL (<0.4); BILIRUBIN,TOTAL 0.6 MG/DL (0.3-1.2); BLOOD UREA NITROGEN 11 MG/DL (9-23); CALCIUM LEVEL 8.9 MG/DL (8.5-10.1); CARBON DIOXIDE LEVEL 23 MMOL/L (20-31); CHLORIDE LEVEL 108 MMOL/L (98-107); CREATININE FOR GFR 0.53 MG/DL (0.55-1.30); GLOMERULAR FILTRATION RATE > 60.0 (>58); GLUCOSE, FASTING 136 MG/DL (60-100); POTASSIUM SERUM 4.4 MMOL/L (3.5-5.1); SODIUM LEVEL 139 MMOL/L (136-145); TOTAL PROTEIN 7.2 G/DL (5.7-8.2)
[2023-09-19] MEDS ORDERED: ONDANSETRON 4MG 2ML VIAL IV PRN (12:40)
[2023-09-19 12:57] LABS: CK-MB VALUE MASS < 1.0 NG/ML (<3.6)
[2023-09-19 13:03] LABS: CPK CREATINE PHOSPHOKINASE 169 U/L (34-145); MB/CK RELATIVE INDEX 0.59 (< OR =4)
[2023-09-19] MEDS ORDERED: GASTROGRAFIN SOLUTION 30ML As Ordered ONE (13:12)
[2023-09-19] MEDS: GASTROGRAFIN SOLUTION 30ML PO SCH (13:20)
[2023-09-19] MEDS: MORPHINE 4 MG/ML 1ML VIAL IV PRN (13:20)
[2023-09-19] MEDS ORDERED: ISOVUE-370 76% 100ML VIAL As Ordered ONE (13:42)
[2023-09-19 14:58] VITALS: TEMP 97.5; O2SAT 98
[2023-09-19 15:23] VITALS: BP 153/97
[2023-09-19] MEDS: NS 1,000 ML IV ONE (16:20)
[2023-09-19] MEDS: methylPREDNISolone 40MG 1ML VIAL IV ONE (16:33)
== END 2023-09-19 17:46 | disposition home or self-care (01) ==
LOC: M ED 11:21
DX: R10.9 Unspecified abdominal pain (principal); E86.0 Dehydration; E11.9 Type 2 diabetes mellitus without complications; G47.33 Obstructive sleep apnea (adult) (pediatric); K74.02 Hepatic fibrosis, advanced fibrosis; K50.90 Crohn's disease, unspecified, without complications; R00.0 Tachycardia, unspecified; I44.4 Left anterior fascicular block; Z88.8 Allergy status to other drugs, medicaments and biological substances; Z79.899 Other long term (current) drug therapy; Z79.4 Long term (current) use of insulin; Z79.52 Long term (current) use of systemic steroids
CPT/HCPCS: 74177; 80048; 80076; 82550; 82553; 83690; 84484; 85025; 85652; 86140; 93005; 93041; 96374; 96375; 99284; J2405; J2920; Q9967

== ENCOUNTER → 2023-12-12 | Outpatient (REF) | payer BC ==
[~2023-12-12] MED LIST changes: +FOLI1TAB11 PO; +LMEF1TAB PO; +METH2.5T48 PO; +SEMA2PEN; +VITA100C8
[2023-12-12 19:11] LABS: ALBUMIN 3.3 G/DL (3.2-5.2); ALKALINE PHOSPHATASE 77 U/L (46-116); ALT/SGPT 30 U/L (7.0-40); AST/SGOT 24 U/L (<34); BILIRUBIN,DIRECT 0.1 MG/DL (<0.4); BILIRUBIN,TOTAL 0.4 MG/DL (0.3-1.2); BLOOD UREA NITROGEN 12 MG/DL (9-23); CALCIUM LEVEL 9.5 MG/DL (8.5-10.1); CARBON DIOXIDE LEVEL 22 MMOL/L (20-31); CHLORIDE LEVEL 106 MMOL/L (98-107); GLOMERULAR FILTRATION RATE > 60.0 (>58); GLUCOSE, FASTING 117 MG/DL (60-100); SODIUM LEVEL 141 MMOL/L (136-145); TOTAL PROTEIN 7.1 G/DL (5.7-8.2)
== END ==
LOC: M LAB REF 17:06
PROVIDERS: ATTEND Physician Assistant
DX: E16.1 Other hypoglycemia (principal)

== ENCOUNTER → 2024-01-05 | Outpatient (CLI) | payer BC ==
[~2024-01-05] MED LIST changes: +ESOM1CAP20 PO; -ESOM1CAP5 PO; +ONDA-282 PO; -ONDA4TAB6 PO
== END ==
LOC: M WHC 14:54
PROVIDERS: ATTEND Internal Medicine
DX: Z12.31 Encounter for screening mammogram for malignant neoplasm of breast (principal)

== ENCOUNTER → 2024-02-21 | Outpatient (CLI) | payer BC | LOC: M SLEEP HO 10:44 | PROVIDERS: ATTEND Internal Medicine Pulmonary Disease | DX: G47.33 Obstructive sleep apnea (adult) (pediatric) (principal) ==

== ENCOUNTER → 2024-03-28 | Outpatient (REF) | payer BC ==
[2024-03-31 03:37] LABS: LDL DIRECT 94 mg/dL (<100)
== END ==
LOC: M LAB REF 16:26
PROVIDERS: ATTEND Internal Medicine
DX: K76.0 Fatty (change of) liver, not elsewhere classified (principal); K74.00 Hepatic fibrosis, unspecified; E11.42 Type 2 diabetes mellitus with diabetic polyneuropathy

== ENCOUNTER 2024-04-17 11:45 | Emergency (ER) | payer BC ==
[~2024-04-17] VITALS: Ht 167.6 cm; Wt 134.7 kg
[2024-04-17] MEDS: NS 1,000 ML IV ONE ×2 (12:36→13:05)
[2024-04-17] MEDS: ONDANSETRON 4MG 2ML VIAL IV ONE (12:36)
[2024-04-17 12:39] LABS: VENOUS BASE EXCESS -2.7 (-2.0-2.0); VENOUS HCO3 22.8 MMOL/L (23.0-27.0); VENOUS O2 SATURATION 87.5 % (60.0-80.0); VENOUS PARTIAL PRESSURE CO2 42.1 mmHg (38.0-50.0); VENOUS PARTIAL PRESSURE O2 51.6 mmHg (30.0-50.0); VENOUS PH 7.352 UNITS (7.330-7.430); VENOUS TOTAL CO2 24.1 MMOL/L (24.0-28.0)
[2024-04-17 12:57] LABS: BASO % 0.3 % (0.0-1.0); EOS # 0.1 10^3/uL (0.0-0.5); EOS % 0.5 % (0.0-3.0); HEMATOCRIT 45.6 % (36.0-47.0); HEMOGLOBIN 14.5 g/dl (12.0-15.5); LYMPH # 2.1 10^3/uL (1.5-5.0); LYMPH % 19.1 % (24.0-44.0); MEAN CORPUSCULAR HEMOGLOBIN 28.2 pg (27.0-33.0); MEAN CORPUSCULAR HGB CONC 31.8 g/dl (32.0-36.5); MEAN CORPUSCULAR VOLUME 88.5 fl (80.0-96.0); MONO # 0.4 10^3/uL (0.0-0.8); MONO % 3.7 % (2.0-8.0); NEUTROPHILS # 8.1 10^3/uL (1.5-8.5); NEUTROPHILS % 74.7 % (36.0-66.0); PLATELET COUNT, AUTOMATED 300 10^3/uL (150-450); RED BLOOD COUNT 5.15 10^6/uL (4.00-5.40); WHITE BLOOD COUNT 10.9 10^3/uL (4.0-10.0)
[2024-04-17 13:08] LABS: INR 1.03; PROTHROMBIN TIME 13.2 SECONDS (12.5-14.5)
[2024-04-17 13:16] LABS: C REACTIVE PROTEIN QUANTITATIV < 0.40 MG/DL (<1.0)
[2024-04-17 13:17] LABS: ALBUMIN 3.5 G/DL (3.2-5.2); ALKALINE PHOSPHATASE 82 U/L (46-116); ALT/SGPT 29 U/L (7.0-40); AMYLASE 110 U/L (30-118); AST/SGOT 17 U/L (<34); BILIRUBIN,DIRECT 0.1 MG/DL (<0.4); BILIRUBIN,TOTAL 0.4 MG/DL (0.3-1.2); BLOOD UREA NITROGEN 11 MG/DL (9-23); CALCIUM LEVEL 9.7 MG/DL (8.5-10.1); CARBON DIOXIDE LEVEL 23 MMOL/L (20-31); CHLORIDE LEVEL 108 MMOL/L (98-107); CREATININE FOR GFR 0.52 MG/DL (0.55-1.30); GLOMERULAR FILTRATION RATE > 60.0 (>58); GLUCOSE, FASTING 157 MG/DL (60-100); MAGNESIUM LEVEL 1.6 MG/DL (1.8-2.4); POTASSIUM SERUM 4.1 MMOL/L (3.5-5.1); SODIUM LEVEL 143 MMOL/L (136-145); TOTAL PROTEIN 7.4 G/DL (5.7-8.2)
[2024-04-17 13:23] LABS: PROCALCITONIN 0.13 ng/ml
[2024-04-17] MEDS: MAG SULF 1GM/100ML (MAG RUN) 1 GM in IV 1 EA IV ONE (13:47)
[2024-04-17] MEDS: GASTROGRAFIN SOLUTION 30ML PO SCH (13:47)
[2024-04-17] MEDS ORDERED: ISOVUE-370 76% 100ML VIAL As Ordered ONE (15:24)
[2024-04-17 15:45] LABS: LIPASE 83 U/L (12-53)
[2024-04-17 16:16] VITALS: BP 143/109
[2024-04-17 16:30] VITALS: TEMP 97.2; O2SAT 96
[2024-04-17] MEDS ORDERED: ONDA-282 PO (16:43)
== END 2024-04-17 16:57 | disposition home or self-care (01) ==
LOC: M ED 11:45
DX: K56.600 Partial intestinal obstruction, unspecified as to cause (principal); K50.90 Crohn's disease, unspecified, without complications; K42.9 Umbilical hernia without obstruction or gangrene; R16.1 Splenomegaly, not elsewhere classified; K76.0 Fatty (change of) liver, not elsewhere classified; Z88.8 Allergy status to other drugs, medicaments and biological substances; Z79.83 Long term (current) use of bisphosphonates; Z79.899 Other long term (current) drug therapy
CPT/HCPCS: 74177; 80048; 80076; 82150; 82803; 83605; 83690; 83735; 84145; 85025; 85610; 85730; 86140; 87040; 87486; 87581; 87633; 87798; 93005; 93041; 94760; 96361; 96365; 96366; 96375; 99285; J2405; J3475; Q9963; Q9967

== ENCOUNTER → 2024-05-08 | Outpatient (CLI) | payer BC | LOC: M RAD 07:58 | PROVIDERS: ATTEND Internal Medicine | DX: K76.0 Fatty (change of) liver, not elsewhere classified (principal); R16.0 Hepatomegaly, not elsewhere classified ==

== ENCOUNTER → 2024-05-27 | Outpatient (REF) | payer BC | LOC: M LAB REF 17:17 | PROVIDERS: ATTEND Internal Medicine Pulmonary Disease | DX: R05.9 Cough, unspecified (principal) ==

== ENCOUNTER → 2024-05-31 | Outpatient (CLI) | payer BC ==
[2024-05-31 19:48] LABS: RHEUMATOID FACTOR QUANT 8.8 IU/ML (<14)
[2024-05-31 19:50] LABS: FOLATE > 24.0 NG/ML (>5.4); VITAMIN B12 LEVEL 592 PG/ML (211-911)
[2024-06-02 03:47] LABS: T P ELECTROPHORESIS SO 7.3 g/dL (6.1-8.1)
[2024-06-03 13:02] LABS: ANA SCREEN, IFA NEGATIVE (NEGATIVE)
[2024-06-04 09:13] LABS: ALBUMIN SPEP 4.1 g/dL (3.8-4.8); ALPHA-1-GLOBULINS SO 0.3 g/dL (0.2-0.3); ALPHA-2-GLOBULINS SO 0.9 g/dL (0.5-0.9); BETA 2 GLOBULIN 0.5 g/dL (0.2-0.5); BETA-GLOBULIN SO 0.6 g/dL (0.4-0.6); GAMMA GLOBULINS SO 0.9 g/dL (0.8-1.7)
[2024-06-04 11:22] LABS: Methylmalonic Acid 197 nmol/L (55-335)
== END ==
LOC: M PLALAB 16:11
PROVIDERS: ATTEND Psychiatry & Neurology Neurology
DX: G62.9 Polyneuropathy, unspecified (principal); E53.8 Deficiency of other specified B group vitamins

== ENCOUNTER → 2024-05-31 | Outpatient (CLI) | payer BC ==
[2024-05-31 19:21] LABS: HEMATOCRIT 45.8 % (36.0-47.0); HEMOGLOBIN 14.6 g/dl (12.0-15.5); MEAN CORPUSCULAR HEMOGLOBIN 27.9 pg (27.0-33.0); MEAN CORPUSCULAR HGB CONC 31.9 g/dl (32.0-36.5); MEAN CORPUSCULAR VOLUME 87.6 fl (80.0-96.0); PLATELET COUNT, AUTOMATED 314 10^3/uL (150-450); RED BLOOD COUNT 5.23 10^6/uL (4.00-5.40)
[2024-05-31 19:48] LABS: C REACTIVE PROTEIN QUANTITATIV < 0.40 MG/DL (<1.0); ERYTHROCYTE SEDIMENTATION RATE 39 mm/hr (0-20)
[2024-05-31 19:49] LABS: ALBUMIN 3.5 G/DL (3.2-5.2); ALKALINE PHOSPHATASE 76 U/L (35-104); ALT/SGPT 33 U/L (7.0-40); AST/SGOT 34 U/L (<34); BILIRUBIN,TOTAL 0.4 MG/DL (0.3-1.2); BLOOD UREA NITROGEN 11 MG/DL (9-23); CALCIUM LEVEL 9.4 MG/DL (8.5-10.1); CARBON DIOXIDE LEVEL 25 MMOL/L (20-31); CHLORIDE LEVEL 105 MMOL/L (98-107); CREATININE FOR GFR 0.54 MG/DL (0.55-1.30); GLOMERULAR FILTRATION RATE > 60.0 (>58); GLUCOSE, FASTING 91 MG/DL (60-100); POTASSIUM SERUM 3.9 MMOL/L (3.5-5.1); SODIUM LEVEL 138 MMOL/L (136-145); TOTAL PROTEIN 7.2 G/DL (5.7-8.2)
== END ==
LOC: M PLALAB 16:13
PROVIDERS: ATTEND Internal Medicine Gastroenterology
DX: K50.00 Crohn's disease of small intestine without complications (principal)

== ENCOUNTER 2024-06-16 08:33 | Emergency (ER) | payer BC ==
[~2024-06-16] VITALS: Ht 170.2 cm; Wt 136.4 kg
[2024-06-16 09:44] VITALS: BP 137/79; TEMP 97.7; O2SAT 98
== END 2024-06-16 10:34 | disposition home or self-care (01) ==
LOC: M ED 08:33
DX: S93.401A Sprain of unspecified ligament of right ankle, initial encounter (principal); X50.0XXA Overexertion from strenuous movement or load, initial encounter; E11.9 Type 2 diabetes mellitus without complications; K21.9 Gastro-esophageal reflux disease without esophagitis; K50.90 Crohn's disease, unspecified, without complications; Y92.410 Unspecified street and highway as the place of occurrence of the external cause; Y93.89 Activity, other specified; Y99.9 Unspecified external cause status; Z88.8 Allergy status to other drugs, medicaments and biological substances; Z79.4 Long term (current) use of insulin; Z79.52 Long term (current) use of systemic steroids; Z79.899 Other long term (current) drug therapy

== ENCOUNTER → 2024-06-20 | Outpatient (REF) | payer BC ==
[2024-06-24 13:54] LABS: QuantiFERON-TB Gold Plus NEGATIVE (NEGATIVE)
== END ==
LOC: M LAB REF 11:28
PROVIDERS: ATTEND Internal Medicine Gastroenterology
DX: K50.00 Crohn's disease of small intestine without complications (principal)

== ENCOUNTER → 2024-07-26 | Outpatient (REF) | payer BC | LOC: M LAB REF 16:30 | PROVIDERS: ATTEND Internal Medicine | DX: K74.00 Hepatic fibrosis, unspecified (principal); K76.0 Fatty (change of) liver, not elsewhere classified ==

== ENCOUNTER 2024-08-21 13:03 | Emergency (ER) | payer BC ==
[~2024-08-21] VITALS: Ht 170.2 cm; Wt 136.5 kg
[2024-08-21 14:02] LABS: BASO % 0.4 % (0.0-1.0); EOS % 0.2 % (0.0-3.0); HEMATOCRIT 47.8 % (36.0-47.0); LYMPH # 2.2 10^3/uL (1.5-5.0); LYMPH % 19.6 % (24.0-44.0); MEAN CORPUSCULAR HGB CONC 31.4 g/dl (32.0-36.5); MONO # 0.4 10^3/uL (0.0-0.8); MONO % 3.7 % (2.0-8.0); NEUTROPHILS # 8.6 10^3/uL (1.5-8.5); NEUTROPHILS % 75.6 % (36.0-66.0); PLATELET COUNT, AUTOMATED 310 10^3/uL (150-450); RED BLOOD COUNT 5.56 10^6/uL (4.00-5.40); WHITE BLOOD COUNT 11.4 10^3/uL (4.0-10.0)
[2024-08-21] MEDS: dexAMETHasone 20MG/5ML VIAL IV ONE (14:10)
[2024-08-21] MEDS: NS (Normal Saline) 0.9% 1,000 ML IV ONE (14:11)
[2024-08-21] MEDS: ONDANSETRON 4MG 2ML VIAL IV ONE (15:07)
[2024-08-21 15:17] LABS: ALBUMIN 3.7 G/DL (3.2-5.2); ALKALINE PHOSPHATASE 72 U/L (35-104); ALT/SGPT 37 U/L (7.0-40); AST/SGOT 27 U/L (<34); BILIRUBIN,DIRECT 0.1 MG/DL (<0.4); BILIRUBIN,TOTAL 0.4 MG/DL (0.3-1.2); BLOOD UREA NITROGEN 13 MG/DL (9-23); CALCIUM LEVEL 9.7 MG/DL (8.5-10.1); CARBON DIOXIDE LEVEL 24 MMOL/L (20-31); CHLORIDE LEVEL 107 MMOL/L (98-107); CREATININE FOR GFR 0.52 MG/DL (0.55-1.30); GLOMERULAR FILTRATION RATE > 60.0 (>58); GLUCOSE, FASTING 126 MG/DL (60-100); POTASSIUM SERUM 4.3 MMOL/L (3.5-5.1); SODIUM LEVEL 142 MMOL/L (136-145); TOTAL PROTEIN 7.5 G/DL (5.7-8.2)
[2024-08-21 16:02] VITALS: BP 118/72; TEMP 97.7; O2SAT 95
== END 2024-08-21 16:29 | disposition home or self-care (01) ==
LOC: M ED 13:03
DX: K50.919 Crohn's disease, unspecified, with unspecified complications (principal); G47.30 Sleep apnea, unspecified; C54.1 Malignant neoplasm of endometrium; E11.9 Type 2 diabetes mellitus without complications; Z90.49 Acquired absence of other specified parts of digestive tract; Z87.442 Personal history of urinary calculi; Z79.4 Long term (current) use of insulin; Z79.52 Long term (current) use of systemic steroids; Z79.83 Long term (current) use of bisphosphonates; Z79.899 Other long term (current) drug therapy
CPT/HCPCS: 80047; 80048; 80076; 83605; 85025; 96361; 96374; 96375; 99284; J1100; J2405

== ENCOUNTER → 2025-02-14 | Outpatient (REF) | payer BC | LOC: M LAB REF 12:45 | PROVIDERS: ATTEND Nurse Practitioner Adult Health | DX: K50.813 Crohn's disease of both small and large intestine with fistula (principal) ==

== ENCOUNTER → 2025-02-18 | Outpatient (CLI) | payer BC ==
[~2025-02-18] MED LIST changes: +GASTROGRAFIN SOLUTION 30 ML As Ordered ONE; +ISOVUE-370 76% 100 ML VIAL As Ordered ONE
== END ==
LOC: M RAD 14:53
PROVIDERS: ATTEND Internal Medicine Gastroenterology
DX: K50.00 Crohn's disease of small intestine without complications (principal)

== ENCOUNTER → 2025-05-13 | Outpatient (REF) | payer BC ==
[~2025-05-13] MED LIST changes: -GASTROGRAFIN SOLUTION 30 ML As Ordered ONE; -ISOVUE-370 76% 100 ML VIAL As Ordered ONE
[2025-05-13 19:00] LABS: PLATELET COUNT, AUTOMATED 267 10^3/uL (150-450)
[2025-05-13 19:08] LABS: ERYTHROCYTE SEDIMENTATION RATE 32 mm/hr (0-20)
[2025-05-13 20:03] LABS: ALT/SGPT 34 U/L (7.0-40); AST/SGOT 29 U/L (<34); CALCIUM LEVEL 9.1 MG/DL (8.5-10.1); CARBON DIOXIDE LEVEL 23 MMOL/L (20-31); CHLORIDE LEVEL 104 MMOL/L (98-107); CREATININE FOR GFR 0.48 MG/DL (0.55-1.30); GLOMERULAR FILTRATION RATE > 90.0 (>58); POTASSIUM SERUM 4.1 MMOL/L (3.5-5.1); SODIUM LEVEL 141 MMOL/L (136-145)
[2025-05-13 20:09] LABS: C REACTIVE PROTEIN QUANTITATIV < 0.50 MG/DL (<1.0)
== END ==
LOC: M LAB REF 17:21
PROVIDERS: ATTEND Internal Medicine Gastroenterology
DX: K50.00 Crohn's disease of small intestine without complications (principal); K52.9 Noninfective gastroenteritis and colitis, unspecified

== ENCOUNTER → 2025-07-09 | Outpatient (CLI) | payer BC ==
[2025-07-09 11:56] LABS: PLATELET COUNT, AUTOMATED 315 10^3/uL (150-450)
[2025-07-09 12:38] LABS: C REACTIVE PROTEIN QUANTITATIV < 0.50 MG/DL (<1.0)
[2025-07-09 12:39] LABS: ALT/SGPT 39 U/L (7.0-40); AST/SGOT 37 U/L (<34); CALCIUM LEVEL 9.4 MG/DL (8.5-10.1); CARBON DIOXIDE LEVEL 28 MMOL/L (20-31); CHLORIDE LEVEL 104 MMOL/L (98-107); CREATININE FOR GFR 0.58 MG/DL (0.55-1.30); GLOMERULAR FILTRATION RATE > 90.0 (>58); POTASSIUM SERUM 4.3 MMOL/L (3.5-5.1); SODIUM LEVEL 144 MMOL/L (136-145)
== END ==
LOC: M LAB 10:45
PROVIDERS: ATTEND Internal Medicine Gastroenterology
DX: K50.00 Crohn's disease of small intestine without complications (principal); K44.9 Diaphragmatic hernia without obstruction or gangrene; K57.30 Diverticulosis of large intestine without perforation or abscess without bleeding; K76.0 Fatty (change of) liver, not elsewhere classified